=== PATIENT | female | born 1955 | race Caucasian/White ===

== ENCOUNTER 2020-01-07 14:16 | Emergency (ER) | payer OTHER, SELFPAY ==
[2020-01-07 14:28] VITALS: BP 142/77; PULSE 75; RESP 16; TEMP 37.1; O2SAT 100
--- NOTE | 2020-01-07 14:30 | PC.NURSE ---
in br to obtain ua spec.
--- NOTE | 2020-01-07 14:30 | ED.FEMALEGU ---
HPI - Female Genitourinary General Chief complaint: Urogenital-Female Stated complaint: uti Time Seen by Provider: 01/07/20 14:37 Source: patient and RN notes reviewed Mode of arrival: ambulatory Limitations: no limitations History of Present Illness HPI Narrative: This is a 64 years old female presents to the office for an evaluation of possible UTI since last night. Symptoms include urinary pain, pressure, and suprapubic pain. Symptoms reminiscent her previous UTI. Admits to history of recurrent UTI. States, her doctor told her to save macrobid as last resort for UTI if else fails. Related Data Home Medications Medication Instructions Recorded Confirmed amlodipine 08/14/19 aspirin 08/14/19 atorvastatin 08/14/19 carbidopa-levodopa tablet PO 08/14/19 clonazepam 08/14/19 diltiazem HCl PO 08/14/19 ezetimibe mg 08/14/19 lamotrigine 08/14/19 oxybutynin chloride 08/14/19 sitagliptin [Januvia] mg 08/14/19 albuterol sulfate INHALATION 01/07/20 clopidogrel 01/07/20 gabapentin 01/07/20 latanoprost 01/07/20 loratadine mg 01/07/20 metoprolol tartrate 01/07/20 pramipexole mg 01/07/20 trazodone 01/07/20 triamterene-hydrochlorothiazid tablet 01/07/20 Allergies Allergy/AdvReac Type Severity Reaction Status Date / Time ciprofloxacin Allergy Severe SEVERE Verified 09/05/18 08:35 MIGRAINES Penicillins Allergy Severe ANAPHYLAXIS Unverified 09/05/18 08:35 Quinolones Allergy Severe ANAPHYLAXIS Verified 09/05/18 08:35 Sulfa (Sulfonamide Allergy Severe HIVES Verified 09/05/18 08:35 Antibiotics) cephalexin [From Keflex] Allergy Anaphylaxis Verified 01/07/20 15:02 fentanyl Allergy Anaphylaxis Verified 08/14/19 14:13 levofloxacin [From Levaquin] Allergy Rash Verified 08/14/19 14:15 morphine AdvReac Mild RASH Verified 09/05/18 08:35 Review of Systems Review of Systems: Narrative: CONSTITUTIONAL: Denies fever or feeling ill ENT: Denies congestion CARDIOVASCULAR: Denies chest pain RESPIRATORY: Denies cough GASTROINTESTINAL: Denies abdominal pain, nausea, vomiting, diarrhea; or GI bleed GENITOURINARY: Denies vaginal discharge SKIN: Denies rash/lesions MUSCULOSKELETAL: Denies acute back pain NEUROLOGIC: Denies lightheaded PMFSH Past Medical History Medical History Diabetes Hyperlipidemia Hypertension Parkinsons disease Social History Social History Gender identity (if verbalized by the patient): Female Comments At time of signature, I agree with nursing past medical, surgical, social and family history. There is no relevant family history pertinent to the presenting complaint. Exam Narrative: Exam Narrative: GENERAL: This is a well-nourished, well-developed patient, in no apparent distress. CARDIOVASCULAR: Regular rate and rhythm without murmurs, gallops, or rubs. RESPIRATORY: Clear to auscultation. Breath sounds equal bilaterally. No wheezes, rales, or rhonchi. GASTROINTESTINAL: Abdomen soft, non-tender, nondistended. Bowel sounds are active. No hepato-splenomegaly, or palpable masses. No guarding. NO CVA tenderness. SKIN: warm, intact with no suspicious lesions or rash, good texture and turgor. NEURO: awake, alert, and oriented to person, place and time. There were no obvious focal neurologic abnormalities. Steady gait [place] Coma Scale Eye Opening: Spontaneous 4 [place] Coma Scale Motor: Obeys Commands 6 [place] Coma Scale Verbal: Oriented 5 Course Vital Signs Vital signs: Vital Signs Temperature 98.8 F 01/07/20 14:28 Pulse Rate 75 01/07/20 14:28 Respiratory Rate 16 01/07/20 14:28 Blood Pressure 142/77 H 01/07/20 14:28 Pulse Oximetry 100 01/07/20 14:28 Temperature 98.8 F 01/07/20 14:28 Pulse Rate 75 01/07/20 14:28 Respiratory Rate 16 01/07/20 14:28 Blood Pressure 142/77 H 01/07/20 14:28 Pulse Oximetry 100 01/07/20 14:28
== END 2020-01-07 14:58 | disposition home or self-care (01) ==
PROVIDERS: Emergency Provider Nurse Practitioner
DX: R30.0 Dysuria (principal); R10.30 Lower abdominal pain, unspecified; E11.9 Type 2 diabetes mellitus without complications; E78.5 Hyperlipidemia, unspecified; I10 Essential (primary) hypertension; G20 Parkinson's disease; Z79.82 Long term (current) use of aspirin; Z79.84 Long term (current) use of oral hypoglycemic drugs
CPT/HCPCS: 81003; 87086; 87088; 99213; G0463

== ENCOUNTER 2022-03-04 11:48 | Observation (INO) | payer MEDICARE, MEDICAID, SELFPAY ==
[2022-03-04] VITALS (7 sets, daily range): BP systolic 120–160; BP diastolic 66–83; PULSE 62–72; RESP 14–22; TEMP 36.1–36.6; O2SAT 96–100
--- NOTE | ~2022-03-04 | XR_ITS ---
EXAMINATION: XR chest 2V 03/04/2022 12:44 INDICATION: Chest pressure PROCEDURE: 2 view chest COMPARISON: 08/14/2019 FINDINGS: The lungs are clear. The cardiomediastinal silhouette is within normal limits. There are no pleural effusions. There is no pneumothorax suspected. IMPRESSION: 1: NO ACUTE CARDIOPULMONARY DISEASE. Reviewed, dictated and finalized at location A.
--- NOTE | 2022-03-04 12:05 | ECG_ITS ---
Measurements Intervals [place] Rate: 68 P: 63 WA: 181 QRS: 18 QRSD: 136 T: 47 QT: 455 QTc: 487 Interpretive Statements SINUS RHYTHM LEFT BUNDLE BRANCH BLOCK BASELINE ARTIFACT- II, III, AVR, AVL, AVF, V1, V3-V6 ABNORMAL ECG Electronically Signed On 03-04-2022 16:58:39 CDT by Gerald Francois D.O.
--- NOTE | 2022-03-04 12:18 | ED.CHESTPAIN ---
HPI - Chest Pain General Chief Complaint: Chest Pain Stated Complaint: chest pressure x 1 week, bp elevated Time Seen by Provider: 03/04/22 12:18 Source: patient and EMS Mode of arrival: EMS Limitations: no limitations History of Present Illness HPI narrative: 66 years old white female came from assisted living by ambulance because of chest pressure for the last 7 days. Patient feels cannot take deep breath. Pressure worse during daytime, at rest or with activity, dissipate at night and to start immediately after waking up from sleep, patient on sleeping pills. History of parkinsonism, asthma, diabetes, hypertension, hyperlipidemia, TIA, atrial fibrillation on Eliquis, kidney stone. Related Data Home Medications Medication Instructions Recorded Confirmed amlodipine 10 mg tablet 08/14/19 aspirin 81 mg chewable tablet 08/14/19 atorvastatin 80 mg tablet 08/14/19 carbidopa ER 50 mg-levodopa 200 mg tablet PO 08/14/19 tablet,extended release clonazepam 0.5 mg tablet 08/14/19 diltiazem HCl 120 mg capsule,24 PO 08/14/19 hr,extended release ezetimibe 10 mg tablet mg 08/14/19 lamotrigine 100 mg tablet 08/14/19 oxybutynin chloride 5 mg tablet 08/14/19 sitagliptin 50 mg tablet (Januvia) mg 08/14/19 albuterol sulfate 90 mcg/actuation inhalation 01/07/20 aerosol inhaler clopidogrel 75 mg tablet 01/07/20 gabapentin 300 mg capsule 01/07/20 latanoprost 0.005 % eye drops 01/07/20 loratadine 10 mg tablet mg 01/07/20 metoprolol tartrate 50 mg tablet 01/07/20 pramipexole 1 mg tablet mg 01/07/20 trazodone 100 mg tablet 01/07/20 triamterene 37.5 tablet 01/07/20 mg-hydrochlorothiazide 25 mg tablet Allergies Allergy/AdvReac Type Severity Reaction Status Date / Time ciprofloxacin Allergy Severe SEVERE Verified 03/04/22 11:54 MIGRAINES Penicillins Allergy Severe ANAPHYLAXIS Verified 03/04/22 11:54 Quinolones Allergy Severe ANAPHYLAXIS Verified 03/04/22 11:54 Sulfa (Sulfonamide Allergy Severe HIVES Verified 03/04/22 11:54 Antibiotics) cephalexin [From Keflex] Allergy Anaphylaxis Verified 03/04/22 11:54 fentanyl Allergy Anaphylaxis Verified 03/04/22 11:54 levofloxacin [From Levaquin] Allergy Rash Verified 03/04/22 11:54 morphine AdvReac Mild RASH Verified 03/04/22 11:54 Review of Systems Review of Systems: All systems reviewed & are unremarkable except as noted in HPI and below PMFSH Past Medical History Medical History (Updated 03/04/22 @ 12:56 by Ian Hdz MD) Diabetes Hyperlipidemia Hypertension Parkinsons disease Social History Social History Gender identity (if verbalized by the patient): Female Exam Narrative: General appearance: Well-developed, well-nourished Skin: Normal color Head: Normocephalic, nontraumatic Eyes: Clear conjunctiva ENT: Oropharynx normal, ears normal, nose normal Neck: Supple, nontender Chest and respiratory: Airway patent, no respiratory distress, no accessory muscle use Heart: Regular rate/rhythm Abdomen: Soft, nontender, no organomegaly, quiet bowel sounds Vascular: Normal peripheral pulses, normal capillary refill. 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
[2022-03-04 12:25] LABS: Basophils Absolute Auto 0.1 K/mm3 (0.0-0.1); Basophils Percent Auto 0.6 % (0.2-1.2); Eosinophils Absolute Auto 0.3 K/mm3 (0-0.3); Eosinophils Percent Auto 2.5 % (0-4.4); Hematocrit 37.5 % (37.0-47.0); Hemoglobin 12.4 g/dL (12.0-15.0); Immature Granulocyte Absolute 0.04 K/mm3 (0.00-0.031); Immature Granulocyte Percent A 0.4 % (0-0.5); Lymphocytes Absolute Auto 3.07 K/mm3 (0.9-3.2); Lymphocytes Percent Auto 30.6 % (18.3-44.2); Mean Corpuscular HGB Conc 33.1 g/dl (32-36); Mean Corpuscular Hemoglobin 29.9 pg (26-34); Mean Corpuscular Volume 90.4 fl (80-100); Mean Platelet Volume 9.2 fl (7.4-10.4); Monocytes Absolute Auto 0.8 K/mm3 (0.1-0.6); Monocytes Percent Auto 8.2 % (2.6-8.5); Neutrophils Absolute Auto 5.8 K/mm3 (1.3-6.7); Neutrophils Percent Auto 57.7 % (45.5-73.1); Platelet Count Result 216 k/mm3 (150-375); Red Blood Count 4.15 M/mm3 (4.2-5.4); Red Cell Distribution Width 14.6 % (11.5-14.5)
[2022-03-04 12:35] LABS: Alanine Aminotransferase 22 U/L (6-35); Albumin Level 4.3 g/dL (3.5-5.1); Alkaline Phosphatase 80 U/L (38-126); Anion Gap 8 mmol/L (8-16); Aspartate Amino Transferase 24 U/L (14-36); Bilirubin,Total 0.5 mg/dL (0.2-1.3); Blood Urea Nitrogen 17 mg/dL (7-17); Calcium 9.5 mg/dL (8.4-10.2); Carbon Dioxide 30 mmol/L (22-30); Chloride 101 mmol/L (98-107); Estimated CRCL calculation 44 ml/min; Estimated Glomerular Filt Rate 50; Glucose 122 mg/dL (65-110); Lipase 300 U/L (23-300); Potassium 3.6 mmol/L (3.4-5.0); Sodium 139 mmol/L (137-145)
[2022-03-04 12:36] LABS: INR 1.3; Prothrombin Time 15.3 Seconds (11.1-14.7)
[2022-03-04 12:37] LABS: Partial Thromboplastin Time 31.4 SECONDS (22.3-36.8)
[2022-03-04 12:47] LABS: NT Pro B Type Natriuretic Pept 101 pg/mL (5-100); Troponin I < 0.012 ng/mL (0.000-0.034)
[2022-03-04] MEDS: SODIUM CHLORIDE 0.9% IV 1,000 ML 999 ML IV CONT (13:16)
[2022-03-04 13:31] LABS: SARS-CoV-2 RNA PCR Negative
--- NOTE | 2022-03-04 14:07 | PM.IMHP ---
H&P: HPI History of Present Illness Date/Time: 03/04/22 [id number] Chief Complaint: Chest Pain Narrative: This pleasant, 66-year-old female patient significant past medical history of hypertension, hyperlipidemia, diabetes mellitus, Parkinson's disease presents independently ambulatory to the emergency room with complaints of having chest pain for 1 week. The chest pain is only present during the day, she does not feel it at night because she ?takes a sleeping pill. The pain she describes to me is in the middle of her chest without any radiation, made her feel like she has to force a deep inspiration, in she has no associated nausea/vomiting/diaphoresis/palpitations/radiation of pain. She does not have dyspnea on exertion. She has reportedly seen fishing game warden previously and that is Dr. Cordero at [facility] [place]. Patient denies any illnesses or any acute sick contacts. She has taken all her medications. EKG in the emergency room showed normal sinus rhythm at 60 beats per minute with a left bundle-branch block. Initial troponin is negative. Heart score is 5 for (risk factors, age, nonspecific repolarization disturbance in slight suspicion.) Patient has been admitted to hospitalist service at this time for complete rule out with serial troponins. Review of Systems Review of Systems: All systems reviewed & are unremarkable except as noted in HPI and below PMFSH Past Medical History Medical History (Updated 03/04/22 @ 14:18 by JOHN Tuttle) Diabetes Hyperlipidemia Hypertension Parkinsons disease Social History Social History Gender identity (if verbalized by the patient): Female Meds Home Medications and Allergies Home Medications Medication Instructions Recorded Confirmed Type amlodipine 10 mg tablet 08/14/19 History aspirin 81 mg chewable tablet 08/14/19 History atorvastatin 80 mg tablet 08/14/19 History carbidopa ER 50 mg-levodopa 200 mg tablet PO 08/14/19 History tablet,extended release clonazepam 0.5 mg tablet 08/14/19 History diltiazem HCl 120 mg capsule,24 PO 08/14/19 History hr,extended release ezetimibe 10 mg tablet mg 08/14/19 History lamotrigine 100 mg tablet 08/14/19 History oxybutynin chloride 5 mg tablet 08/14/19 History sitagliptin 50 mg tablet (Januvia) mg 08/14/19 History albuterol sulfate 90 mcg/actuation inhalation 01/07/20 History aerosol inhaler clopidogrel 75 mg tablet 01/07/20 History gabapentin 300 mg capsule 01/07/20 History latanoprost 0.005 % eye drops 01/07/20 History loratadine 10 mg tablet mg 01/07/20 History metoprolol tartrate 50 mg tablet 01/07/20 History nitrofurantoin 100 mg PO Q12H 7 days #14 caps 01/07/20 Rx monohydrate/macrocrystals 100 mg capsule (Macrobid) pramipexole 1 mg tablet mg 01/07/20 History trazodone 100 mg tablet 01/07/20 History triamterene 37.5 tablet 01/07/20 History mg-hydrochlorothiazide 25 mg tablet Allergies Allergy/AdvReac Type Severity Reaction Status Date / Time ciprofloxacin Allergy Severe SEVERE Verified 03/04/22 11:54 MIGRAINES Penicillins Allergy Severe ANAPHYLAXIS Verified 03/04/22 11:54 Quinolones Allergy Severe ANAPHYLAXIS Verified 03/04/22 11:54 Sulfa (Sulfonamide Allergy Severe HIVES Verified 03/04/22 11:54 Antibiotics) cephalexin [From Keflex] Allergy Anaphylaxis Verified 03/04/22 11:54 fentanyl Allergy Anaphylaxis Verified 03/04/22 11:54 levofloxacin [From Levaquin] Allergy Rash Verified 03/04/22 11:54 morphine AdvReac Mild RASH Verified 03/04/22 11:54 Vital Signs Vital Signs - 24 hr 03/04/22 11:45 Temperature 97.9 F Pulse Rate 69 Respiratory Rate 14 Blood Pressure 138/83 Pulse Oximetry 100 Oxygen Delivery Room Air Exam Const: General: comfortable and no acute distress HENMT: General nose exam: Normal nares present Mouth: Yes moist mucous membranes Eyes: General: appear
[2022-03-04] MEDS: SODIUM CHLORIDE 0.9% IV 1,000 ML 125 ML IV CONT (14:30)
[2022-03-04 15:00] LABS: Hemoglobin A1C 7.2 % (<5.7)
--- NOTE | 2022-03-04 15:12 | PC.NURSE ---
patient transferred to floor with IVF infusing
[2022-03-04 15:29] LABS: Troponin I < 0.012 ng/mL (0.000-0.034)
--- NOTE | 2022-03-04 15:54 | ADMGEN ---
This patient, Ivonne Santos, was admitted to IMU Room 206-01. Patient/family oriented to hospital policies and general routines including ID bracelet, bed and alarms, visiting hours, pain management, procedures, bathroom and other care routines, personal items, smoking policy, room service/diet, and visiting hours. Information on how to activate the Rapid Response Team has been discussed. Patient/Family are encouraged to report perceived risks to care and to ask questions if they do not understand what they are told or what they should do.
[2022-03-04 16:31] LABS: Glucose Point of Care 97 mg/dl (65-105)
[2022-03-04 16:41] LABS: Troponin I < 0.012 ng/mL (0.000-0.034)
[2022-03-04 19:02] LABS: Troponin I < 0.012 ng/mL (0.000-0.034)
[2022-03-04 20:34] LABS: Glucose Point of Care 139 mg/dl (65-105)
[2022-03-04] MEDS: clonazePAM (*CRX) 0.5 MG TABLET PO (21:38)
[2022-03-04] MEDS: QUEtiapine FUMARATE 25 MG TABLET PO (21:39)
[2022-03-04] MEDS: GABAPENTIN 300 MG CAPSULE 900 MG BY MOUTH (21:39)
[2022-03-04] MEDS: traZODone HCL 50 MG TABLET PO (21:39)
[2022-03-04] MEDS: LATANOPROST 0.005% OP SOLN 2.5 ML BTL 1 DROP EACH EYE (21:40)
[2022-03-05] VITALS (9 sets, daily range): BP systolic 130–152; BP diastolic 55–65; PULSE 62–74; RESP 16–18; TEMP 36.3–36.9; O2SAT 96–99
[2022-03-05] MEDS: SODIUM CHLORIDE 0.9% IV 1,000 ML 125 ML IV CONT (01:53)
[2022-03-05 05:07] LABS: Anion Gap 7 mmol/L (8-16); Blood Urea Nitrogen 11 mg/dL (7-17); Calcium 8.2 mg/dL (8.4-10.2); Carbon Dioxide 28 mmol/L (22-30); Chloride 108 mmol/L (98-107); Estimated CRCL calculation 53 ml/min; Estimated Glomerular Filt Rate > 60; Glucose 94 mg/dL (65-110); Potassium 3.4 mmol/L (3.4-5.0); Sodium 143 mmol/L (137-145)
[2022-03-05 07:23] LABS: Basophils Percent Auto 0.6 % (0.2-1.2); Eosinophils Absolute Auto 0.3 K/mm3 (0-0.3); Eosinophils Percent Auto 3.9 % (0-4.4); Hematocrit 37.6 % (37.0-47.0); Hemoglobin 12.1 g/dL (12.0-15.0); Immature Granulocyte Absolute 0.01 K/mm3 (0.00-0.031); Immature Granulocyte Percent A 0.2 % (0-0.5); Lymphocytes Absolute Auto 2.78 K/mm3 (0.9-3.2); Lymphocytes Percent Auto 42.1 % (18.3-44.2); Mean Corpuscular HGB Conc 32.2 g/dl (32-36); Mean Corpuscular Hemoglobin 29.6 pg (26-34); Mean Corpuscular Volume 91.9 fl (80-100); Monocytes Absolute Auto 0.5 K/mm3 (0.1-0.6); Monocytes Percent Auto 7.9 % (2.6-8.5); Neutrophils Percent Auto 45.3 % (45.5-73.1); Platelet Count Result 195 k/mm3 (150-375); Red Blood Count 4.09 M/mm3 (4.2-5.4); Red Cell Distribution Width 14.7 % (11.5-14.5); White Blood Count 6.6 K/mm3 (4.5-10.0)
[2022-03-05 08:09] LABS: Glucose Point of Care 94 mg/dl (65-105)
[2022-03-05] MEDS: TAMSULOSIN HCL 0.4 MG CAPSULE PO (08:44)
[2022-03-05] MEDS: FAMOTIDINE 20 MG TABLET 40 MG PO (08:44)
[2022-03-05] MEDS: TRIAMTERENE 50 MG CAPSULE PO (08:44)
[2022-03-05] MEDS: ASCORBIC ACID 500 MG TABLET PO (08:44)
[2022-03-05] MEDS: ATORVASTATIN 40 MG TABLET 80 MG PO (08:44)
[2022-03-05] MEDS: THERAPEUTIC MULTIVITAMINS/MINERALS TAB (*BKC) 1 TABLET PO (08:44)
[2022-03-05] MEDS: PANTOPRAZOLE 40 MG TABLET PO (08:44)
[2022-03-05] MEDS: APIXABAN 5 MG TABLET BY MOUTH (08:44)
[2022-03-05] MEDS: EZETIMIBE 10 MG TABLET PO (08:44)
[2022-03-05] MEDS: METOPROLOL TARTRATE 50 MG TAB 100 MG PO (08:44)
[2022-03-05] MEDS: LORATADINE 10 MG TABLET PO (08:44)
[2022-03-05] MEDS: ASPIRIN 81 MG CHEWABLE TABLET PO (08:44)
[2022-03-05] MEDS: lamoTRIgine 100 MG TABLET PO (08:44)
[2022-03-05] MEDS: FLUTICASONE PROPIONATE 0.05% NA SPR 16 GM BTL (*BKC) 2 SPRAY NASAL (08:45)
[2022-03-05] MEDS: MIRABEGRON 50 MG ER TABLET PO (08:45)
[2022-03-05] MEDS: FLUTICASONE/SALMETEROL 45-21 MCG INHALER 1 PUFF 2 PUFF INHALATION (09:04)
--- NOTE | 2022-03-05 09:34 | PM.DS ---
DS: Admitting Diagnosis Discharge Date 03/05/22 1600 Admitting Diagnosis chest pain DS: Discharge Diagnosis Discharge Diagnosis (1) Chest pain: Code(s): R07.9 - Chest pain, unspecified Status: Acute Assessment and Plan: -low suspicion for ACS.heart score 5. - EKG showed NSR, LBBB, serial troponin showed no change, <0.012, Tele did show transient 2d Degree AV block which resolved. -patient received aspirin in the ED. -patient's manager travel is Dr. Cordero at [facility] -nitro p.r.n., Tylenol - Inquired about patient's steroid inhaler use. She is taking budesonide inhaler at this time and does not rinse afterwards. She does confirm she frequently gets yeast in the corners of her mouth, last time approximately 1 month ago. History of EGD in December 2020, prior to these symptoms, which showed erosive gastropathy w/ stigmata of bleeding. She reports she has been having bad reflux for the past few days prior to the start of her chest pain. She reports current chest pain is worse after eating, but is not burning, more pressure. She states it is in the same place that she was having her GERD pain. She denies pain with inspiration, lower extremity pain or edema. Candidal esophagitis is in the differential at this time. - Advised patient to continue her Pepcid/ PPI and follow up with her primary care and GI physician, Dr. Quijano, for potential EGD to evaluate for possible esophagitis. At this time, the patient is hemodynamically stable, on room air, and is chest pain free. Discussed plan for discharge with follow up with the patient and she does agree with this course of action. (2) Hypertension: Code(s): I10 - Essential (primary) hypertension Status: Chronic Assessment and Plan: -Chronic in nature. -Resume home medications upon discharge. (3) Hyperlipidemia: Code(s): E78.5 - Hyperlipidemia, unspecified Status: Chronic Assessment and Plan: -resume statin therapy once medications have been verified by RN. -cardiac diet (4) Diabetes mellitus: Code(s): E11.9 - Type 2 diabetes mellitus without complications Status: Chronic Assessment and Plan: -A1c 7.2 -sliding-scale insulin -hypoglycemia protocol -heart healthy diet -Discharge with home medications continued. (5) Parkinsons disease: Code(s): G20 - Parkinson's disease Status: Chronic Assessment and Plan: Continue home medication upon discharge. DS: Summary Hospital Course Reason for hospitalization: Chest pain Hospital Course: See above for full hospital course. Status at Discharge Overall status at discharge: patient is progressing back to baseline Time Spent with Patient Time attestation: Total time spent providing and/or coordinating discharge services: 35 mins Time spent: Greater than 30 minutes Exam Narrative: GENERAL APPEARANCE: Alert and oriented x 3, in no apparent distress. HEENT: PERRL, EOMI. Sclerae anicteric. Moist mucous membranes. NECK: Supple. No JVD or obvious carotid bruits. RESPIRATORY: Respirations are nonlabored. Breath sounds are equal and clear bilaterally. No wheezes, Rhonchi, or rales. CARDIOVASCULAR: Regular rate and rhythm with normal S1-S2. No murmurs, gallops, or rubs. GASTROINTESTINAL: Soft, flat, and benign. No mass, tenderness, guarding, or rebound. No organomegaly or hernia. Bowel sounds are present. SKIN: Warm, dry, well perfused. Good turgor. No lesions, nodules, or rashes noted. EXTREMITIES: No cyanosis, clubbing, or edema. Radial and pedal pulses intact. NEUROLOGICAL: Alert. Cranial nerves 2-12 are grossly intact. No gross focal deficits to casual conversation. PSYCHIATRIC: Pleasant and cooperative with normal mood and affect. DS: Data Data Completed and Pending Labs on day of discharge: Labs from last 24 hours 03/05/22 03/05/22 03/05/22 07:59 04:09 04:04 WBC 6.6 R
[2022-03-05 11:42] LABS: Glucose Point of Care 235 mg/dl (65-105)
[2022-03-05] MEDS: INSULIN ASPART (*BKC) 100 UNITS/ML SUB-Q (11:57)
== END 2022-03-05 14:00 ==
LOC: ANHED 12:56 → ANHIMU 14:51
PROVIDERS: General Practice; Nurse Practitioner Adult Health; Admitting Provider Student in an Organized Health Care Education/Training Program; Emergency Provider Emergency Medicine; Visit Provider Student in an Organized Health Care Education/Training Program
DX: R07.9 Chest pain, unspecified (principal); E86.0 Dehydration; F32.A Depression, unspecified; G20 Parkinson's disease; I10 Essential (primary) hypertension; E78.5 Hyperlipidemia, unspecified; E11.9 Type 2 diabetes mellitus without complications; J45.909 Unspecified asthma, uncomplicated; I48.91 Unspecified atrial fibrillation; Z86.73 Personal history of transient ischemic attack (TIA), and cerebral infarction without residual deficits; Z79.01 Long term (current) use of anticoagulants; Z79.82 Long term (current) use of aspirin; Z79.84 Long term (current) use of oral hypoglycemic drugs; Z79.51 Long term (current) use of inhaled steroids; Z79.02 Long term (current) use of antithrombotics/antiplatelets; Z20.822 Contact with and (suspected) exposure to COVID-19
CPT/HCPCS: 36415; 71046; 80048; 80053; 82948; 83036; 83690; 83880; 84484; 85025; 85610; 85730; 93005; 94640; 96361; 96365; 96376; 99285; A9270; C9803; G0378; G0379; J0131; J1815; J7030; U0003; U0005

== ENCOUNTER 2023-02-17 14:25 | Emergency (ER) | payer MEDICARE, OTHER, SELFPAY ==
--- NOTE | ~2023-02-17 | XR_ITS ---
EXAM: XR tibia fibula RT 2V DATE: 02/17/2023 15:35 HISTORY: laceration, concern for foreign body . COMPARISON: None available. FINDINGS: Uncomplicated appearing right total knee arthroplasty. Decreased mineralization. No fractu re or dislocation. No lytic or blastic lesion. Joint spaces are maintained. No erosion or periosteal change. Scattered areas of subcutaneous gas. IMPRESSION: No acute osseous finding. No hardware complication. No radiopaque foreign body. Reviewed, dictated and finalized at location K. IMPRESSION: No acute osseous finding. No hardware complication. No radiopaque f oreign body.
--- NOTE | ~2023-02-17 | XR_ITS ---
EXAM: XR femur LT min 2V, XR tibia fibula LT 2V DATE: 02/17/2023 14:55 (accession [id number]), 02/17/2023 14:56 (accession [id number]) HISTORY: laceration, concern for foreign body PROXIMAL ANT LACERATION . COMPARISON: None available. FINDINGS: Decreased mineralization. No fracture or dislocation. No lytic or blastic lesion. Joint sp aces and physes are mild degenerative change at the left hip, left knee, and left ankle. No erosion o r periosteal change. Subcutaneous gas over the proximal thigh. No radiopaque foreign body. IMPRESSION: No acute osseous finding in the left femur, tibia, or fibula. No radiopaque foreign body. Reviewed, dictated and finalized at [facility]. IMPRESSION: No acute osseous finding in the left femur, tibia, or fibula. No ra diopaque foreign body.
--- NOTE | ~2023-02-17 | CT_ITS ---
CTA OF THE LEFT LOWER EXTREMITY EXAMINATION: CTA LE LT DATE: 02/17/2023 17:31 INDICATION: Penetrating trauma after falling on a tomato cage, brisk spurting blood reported at the t rebecca of injury, bleeding currently controlled superficially, with suspicion for an expanding hematoma in the groin/thigh. TECHNIQUE: Computed tomography (CT) of the left lower extremity was performed with 150 mL Omnipaque 3 50 intravenous contrast in the arterial phase. Automated exposure control and iterative reconstructio n technique were employed. The dose-length product was 697.21 mGy-cm. COMPARISON: X-ray left femur, same date FINDINGS: Soft tissue defect over the anterior thigh with underlying subcutaneous fat stranding. 11.8 x 10.3 x 17.8 cm intramuscular hematoma primarily involving the medial and proximal thigh musculatur e, with some subcutaneous extension. Extensive subcutaneous gas. Multiple focal contrast blushes are present within the hematoma. The traversing common femoral, profundus, and superficial femoral arteri es are patent and normal in appearance. The common femoral vein is flattened and irregular in appeara nce in the region of soft tissue injury. No significant arterial stenosis or occlusion. Distal flow i s preserved. 2 vessel flow below the level of the ankle. No acute osseous finding. Mild degenerative change in the left hip and left knee. Distended urinary b ladder. Surgically absent uterus. IMPRESSION: Anterior thigh laceration with a large underlying proximal and medial thigh hematoma, mostly intramus cular, measuring up to 17.8 cm. Active foci of arterial hemorrhage within the hematoma, likely from b ranch intramuscular arteries. Injury to the common femoral vein is also suspected. Results reported telephonically to Ingrid Gonzalez PA-C by Dr. Sam at 5:42 PM on 02/17/2023. Reviewed, dictated and finalized at location [facility]. IMPRESSION: Anterior thigh laceration with a large underlying proximal and medial thigh hem atoma, mostly intramuscular, measuring up to 17.8 cm. Active foci of arterial h emorrhage within the hematoma, likely from branch intramuscular arteries. Injur y to the common femoral vein is also suspected. Results reported telephonically to Ingrid Gonzalez PA-C by Dr. Sam at 5:42 PM on 02/17/2023.
[2023-02-17 14:28] VITALS: BP 141/70; PULSE 83; RESP 16; TEMP 36.7; O2SAT 99
--- NOTE | 2023-02-17 14:36 | ED.WOUNDLAC ---
HPI - Wound/Laceration General Chief Complaint: Wound/Laceration <Liz Gonzalez PA-C - Last Filed: 02/17/23 18:45> Stated Complaint: lac to thigh <Liz Gonzalez PA-C - Last Filed: 02/17/23 18:45> Time Seen by Provider: 02/17/23 14:27 <Liz Gonzalez PA-C - Last Filed: 02/17/23 18:45> History of Present Illness HPI narrative: 67-year-old female reports from [facility] via [facility] for laceration to her left proximal thigh. Patient reports she was outside gardening, tripped over a tomato cage and cut her leg on a sharp piece of the tomato cage. States she had to pull the tomato cage out of her L thigh, then began squirting blood ~4 min. By the time EMS got there, EMS reported the bleeding was controlled. She also has a laceration to her right distal leg and right lateral leg. Patient thinks she had a tetanus 2 years ago, however upon questioning she is not for certain. She denies other pain or injury, chest pain or shortness of breath, vision changes, focal numbness or weakness. <Liz Gonzalez PA-C - Last Filed: 02/17/23 18:45> Related Data Home Medications: Home Medications Medication Instructions Recorded Confirmed atorvastatin 80 mg tablet 80 mg PO DAILY 08/14/19 03/04/22 clonazepam 0.5 mg tablet 0.5 mg PO HS 08/14/19 03/04/22 ezetimibe 10 mg tablet 10 mg PO DAILY 08/14/19 03/04/22 lamotrigine 100 mg tablet 100 mg PO BID 08/14/19 03/04/22 sitagliptin phosphate 50 mg tablet 50 mg PO DAILY 08/14/19 03/04/22 (Januvia) latanoprost 0.005 % eye drops 1 drp EACH EYE HS 01/07/20 03/04/22 trazodone 100 mg tablet 50 mg PO HS 01/07/20 03/04/22 acetaminophen 325 mg tablet 650 mg PO QID PRN Pain 03/04/22 03/04/22 apixaban 5 mg tablet (Eliquis) 5 mg BID 03/04/22 03/04/22 ascorbic acid (vitamin C) 500 mg 500 mg PO DAILY 03/04/22 03/04/22 tablet calcium carbonate 600 mg-vitamin 1 tablet PO WEEKLY 03/04/22 03/04/22 D3 10 mcg (400 unit) tablet cetirizine 10 mg tablet 10 mg DAILY 03/04/22 03/04/22 diclofenac sodium 1 % topical gel 1 ea topical QID 03/04/22 03/04/22 famotidine 40 mg tablet 40 mg PO DAILY 03/04/22 03/04/22 fluticasone 100 mcg-salmeterol 50 1 inh inhalation Q12H 03/04/22 03/04/22 mcg/dose blistr powdr for inhalation (Advair Diskus) fluticasone propionate 50 2 spray intranasal DAILY 03/04/22 03/04/22 mcg/actuation nasal spray,suspension metoprolol tartrate 100 mg tablet 100 mg PO BID 03/04/22 03/04/22 mirabegron 50 mg tablet,extended 50 mg PO DAILY 03/04/22 03/04/22 release 24 hr (Myrbetriq) multivitamin with minerals 1 tablet PO DAILY 03/04/22 03/04/22 pantoprazole 40 mg tablet,delayed 40 mg PO DAILY 03/04/22 03/04/22 release pimavanserin 34 mg capsule 34 mg PO DAILY 03/04/22 03/04/22 quetiapine 25 mg tablet 25 mg PO HS 03/04/22 03/04/22 tamsulosin 0.4 mg capsule 0.4 mg PO DAILY 03/04/22 03/04/22 triamterene 50 mg capsule 50 mg PO BID 03/04/22 03/04/22 <Liz Gonzalez PA-C - Last Filed: 02/17/23 18:45> Allergies/Adverse Reactions: Allergies Allergy/AdvReac Type Severity Reaction Status Date / Time ciprofloxacin Allergy Severe SEVERE Verified 02/17/23 14:44 MIGRAINES Penicillins Allergy Severe ANAPHYLAXIS Verified 02/17/23 14:44 Quinolones Allergy Severe ANAPHYLAXIS Verified 02/17/23 14:44 Sulfa (Sulfonamide Allergy Severe HIVES Verified 02/17/23 14:44 Antibiotics) adhesive tape Allergy Rash Verified 02/17/23 14:44 cephalexin [From Keflex] Allergy Anaphylaxis Verified 02/17/23 14:44 chlorthalidone Allergy Rash Verified 02/17/23 14:44 fentanyl Allergy Anaphylaxis Verified 02/17/23 14:44 ibuprofen Allergy Rash Verified 02/17/23 14:44 levofloxacin [From Levaquin] Allergy Rash Verified 02/17/23 14:44 vancomycin Allergy Gastrointestinal Verified 02/17/23 14:44 Upset morphine AdvReac Mild RASH Verified 02/17/23 14:44 <Liz Gonzalez PA-C - Last Filed: 02/17/23 18:45> Review of Systems Review of Systems: CONSTIT
[2023-02-17] MEDS: ACETAMINOPHEN 500 MG TABLET 1000 MG PO (14:43)
[2023-02-17] MEDS: TETANUS,DIPHTHERIA,AC PERTUSSIS ADULT (0.5 ML) BOOSTRIX IM (14:59)
[2023-02-17 16:15] VITALS: BP 143/85; PULSE 79; RESP 16; O2SAT 98
--- NOTE | 2023-02-17 16:18 | PC.NURSE ---
area proximal to left leg laceration becoming swollen and tender to touch. increased bruising noted around injury. pa aware
[2023-02-17] MEDS: HYDROmorphone HCL INJ (*CRX) 1 MG/ML SYR 0.5 MG IV PUSH ×2 (16:21→18:12)
[2023-02-17 16:25] LABS: Basophils Absolute Auto 0.1 K/mm3 (0.0-0.1); Basophils Percent Auto 0.5 % (0.2-1.2); Eosinophils Absolute Auto 0.2 K/mm3 (0-0.3); Hematocrit 32.7 % (37.0-47.0); Hemoglobin 10.7 g/dL (12.0-15.0); Immature Granulocyte Absolute 0.07 K/mm3 (0.00-0.031); Immature Granulocyte Percent A 0.6 % (0-0.5); Lymphocytes Absolute Auto 2.21 K/mm3 (0.9-3.2); Lymphocytes Percent Auto 19.9 % (18.3-44.2); Mean Corpuscular HGB Conc 32.7 g/dl (32-36); Mean Corpuscular Hemoglobin 29.7 pg (26-34); Mean Corpuscular Volume 90.8 fl (80-100); Mean Platelet Volume 9.9 fl (7.4-10.4); Monocytes Absolute Auto 0.7 K/mm3 (0.1-0.6); Monocytes Percent Auto 5.9 % (2.6-8.5); Neutrophils Absolute Auto 7.9 K/mm3 (1.3-6.7); Neutrophils Percent Auto 71.1 % (45.5-73.1); Platelet Count Result 216 k/mm3 (150-375); Red Cell Distribution Width 14.6 % (11.5-14.5); White Blood Count 11.1 K/mm3 (4.5-10.0)
--- NOTE | 2023-02-17 16:33 | PC.NURSE ---
measured upper thighs, due to swelling in left upper thigh Right upper thigh: 23.25 Left upper thigh: 24.50 ed pa aware
[2023-02-17 16:35] LABS: Anion Gap 8 mmol/L (8-16); Blood Urea Nitrogen 21 mg/dL (7-17); Calcium 9.1 mg/dL (8.4-10.2); Carbon Dioxide 27 mmol/L (22-30); Chloride 102 mmol/L (98-107); Estimated CRCL calculation 37 ml/min; Estimated Glomerular Filt Rate 45; Glucose 123 mg/dL (65-110); Potassium 3.5 mmol/L (3.4-5.0); Sodium 137 mmol/L (137-145)
[2023-02-17 16:40] LABS: Prothrombin Time 13.9 Seconds (11.1-14.7)
[2023-02-17 17:05] VITALS: BP 139/68; PULSE 83; RESP 16; O2SAT 97
[2023-02-17] MEDS: ONDANSETRON INJ 4 MG/2 ML VIAL IV PUSH ×2 (17:18→18:50)
--- NOTE | 2023-02-17 18:00 | PC.NURSE ---
measured left proximal thigh: 25.0
[2023-02-17] MEDS: SODIUM CHLORIDE 0.9% IV 1,000 ML 999 ML IV CONT (18:12)
[2023-02-17 18:44] VITALS: BP 132/71; PULSE 83; RESP 16; O2SAT 98
--- NOTE | 2023-02-17 18:44 | PC.NURSE ---
We called [facility] first 1816, due to 45 min. wait time for lights and sirens, decision was to fly pt Air-Vac to [facility], 182 Air Vac here 183. Cancelled [facility] at 182.
== END 2023-02-17 18:52 | disposition short-term general hospital (02) ==
PROVIDERS: Emergency Provider Physician Assistant
DX: S71.112A Laceration without foreign body, left thigh, initial encounter (principal); S75.992A Other specified injury of unspecified blood vessel at hip and thigh level, left leg, initial encounter; S75.10 Unspecified injury of femoral vein at hip and thigh level; Z23 Encounter for immunization; G20 Parkinson's disease; E11.9 Type 2 diabetes mellitus without complications; E78.5 Hyperlipidemia, unspecified; I10 Essential (primary) hypertension; Z87.891 Personal history of nicotine dependence; Z79.84 Long term (current) use of oral hypoglycemic drugs; Z79.01 Long term (current) use of anticoagulants; W26.8XXA Contact with other sharp object(s), not elsewhere classified, initial encounter; W18.09XA Striking against other object with subsequent fall, initial encounter
CPT/HCPCS: 36415; 73552; 73590; 73706; 80048; 85025; 85610; 85730; 90471; 90715; 96361; 96374; 96375; 96376; 99285; A9270; J1170; J2405; J7030; Q9967

== ENCOUNTER 2023-05-11 16:22 | Emergency (ER) | payer MEDICARE, MEDICAID, SELFPAY ==
[2023-05-11 16:38] VITALS: BP 177/86; PULSE 96; RESP 18; TEMP 36.9; O2SAT 99
--- NOTE | 2023-05-11 16:39 | ED.GENADULT ---
HPI - General Adult General Chief complaint: Urogenital-Female Stated complaint: uti symptoms Time Seen by Provider: 05/11/23 16:39 Source: patient, RN notes reviewed and old records reviewed Mode of arrival: ambulatory Limitations: no limitations History of Present Illness HPI narrative: 67-year-old female presents to the [facility] with complaints of frequency, urgency, burning with urination as well as loss of control of urination. Has a history of UTIs. Multiple drug allergies. States that she has been on doxycycline and Macrobid for the last 3 weeks, per medical record since the 02 of April. Patient reports she is no longer getting better. States that she tried calling her urologist and was told that what grew out is resistant to Macrobid. States that her urologist is no longer in clinic. Onset (ago): week(s) (3+) Related Data Home Medications Medication Instructions Recorded Confirmed atorvastatin 80 mg tablet 80 mg PO DAILY 08/14/19 05/11/23 clonazepam 0.5 mg tablet 0.5 mg PO HS 08/14/19 03/04/22 ezetimibe 10 mg tablet 10 mg PO DAILY 08/14/19 03/04/22 lamotrigine 100 mg tablet 100 mg PO BID 08/14/19 03/04/22 sitagliptin phosphate 50 mg tablet 50 mg PO DAILY 08/14/19 03/04/22 (Januvia) latanoprost 0.005 % eye drops 1 drp EACH EYE HS 01/07/20 03/04/22 trazodone 100 mg tablet 50 mg PO HS 01/07/20 03/04/22 acetaminophen 325 mg tablet 650 mg PO QID PRN Pain 03/04/22 05/11/23 apixaban 5 mg tablet (Eliquis) 5 mg BID 03/04/22 03/04/22 ascorbic acid (vitamin C) 500 mg 500 mg PO DAILY 03/04/22 03/04/22 tablet calcium carbonate 600 mg-vitamin 1 tablet PO WEEKLY 03/04/22 03/04/22 D3 10 mcg (400 unit) tablet cetirizine 10 mg tablet 10 mg DAILY 03/04/22 03/04/22 diclofenac sodium 1 % topical gel 1 ea topical QID 03/04/22 03/04/22 famotidine 40 mg tablet 40 mg PO DAILY 03/04/22 03/04/22 fluticasone 100 mcg-salmeterol 50 1 inh inhalation Q12H 03/04/22 03/04/22 mcg/dose blistr powdr for inhalation (Advair Diskus) fluticasone propionate 50 2 spray intranasal DAILY 03/04/22 03/04/22 mcg/actuation nasal spray,suspension metoprolol tartrate 100 mg tablet 100 mg PO BID 03/04/22 03/04/22 mirabegron 50 mg tablet,extended 50 mg PO DAILY 03/04/22 03/04/22 release 24 hr (Myrbetriq) multivitamin with minerals 1 tablet PO DAILY 03/04/22 03/04/22 pantoprazole 40 mg tablet,delayed 40 mg PO DAILY 03/04/22 03/04/22 release pimavanserin 34 mg capsule 34 mg PO DAILY 03/04/22 03/04/22 quetiapine 25 mg tablet 25 mg PO HS 03/04/22 03/04/22 tamsulosin 0.4 mg capsule 0.4 mg PO DAILY 03/04/22 03/04/22 triamterene 50 mg capsule 50 mg PO BID 03/04/22 03/04/22 aspirin 81 mg chewable tablet 81 mg DIRECTED 05/11/23 05/11/23 Allergies Allergy/AdvReac Type Severity Reaction Status Date / Time ciprofloxacin Allergy Severe SEVERE Verified 02/17/23 14:44 MIGRAINES Penicillins Allergy Severe ANAPHYLAXIS Verified 02/17/23 14:44 Quinolones Allergy Severe ANAPHYLAXIS Verified 02/17/23 14:44 Sulfa (Sulfonamide Allergy Severe HIVES Verified 02/17/23 14:44 Antibiotics) adhesive tape Allergy Rash Verified 02/17/23 14:44 cephalexin [From Keflex] Allergy Anaphylaxis Verified 02/17/23 14:44 chlorthalidone Allergy Rash Verified 02/17/23 14:44 fentanyl Allergy Anaphylaxis Verified 02/17/23 14:44 ibuprofen Allergy Rash Verified 02/17/23 14:44 levofloxacin [From Levaquin] Allergy Rash Verified 02/17/23 14:44 vancomycin Allergy Gastrointestinal Verified 02/17/23 14:44 Upset morphine AdvReac Mild RASH Verified 02/17/23 14:44 Review of Systems Review of Systems: All systems reviewed & are unremarkable except as noted in HPI and below Constitutional: Constitutional: Reports no additional constitutional complaints Eyes: Eyes: Reports no additional eye complaints ENT: Reports system reviewed and no additional complaints, except as documented Cardiovascular: Cardiovascular: Reports no additional cardiovascular complaints, Den
[2023-05-11 16:44] VITALS: BP 177/86; PULSE 96; RESP 18; TEMP 36.9; O2SAT 99
== END 2023-05-11 17:00 | disposition short-term general hospital (02) ==
PROVIDERS: Emergency Provider Nurse Practitioner
DX: N39.0 Urinary tract infection, site not specified (principal); E11.9 Type 2 diabetes mellitus without complications; E78.5 Hyperlipidemia, unspecified; I10 Essential (primary) hypertension; G20 Parkinson's disease; Z87.891 Personal history of nicotine dependence
CPT/HCPCS: 81003; 99212; G0463

== ENCOUNTER 2023-05-11 17:18 | Emergency (ER) | payer MEDICARE, MEDICAID, SELFPAY ==
[2023-05-11 17:21] VITALS: BP 181/83; PULSE 93; RESP 17; TEMP 36.4; O2SAT 100
[2023-05-11 17:56] LABS: Appearance Urine Turbid (Clear); Bacteria Urine Rare /hpf; Bilirubin Urine Negative (Negative); Blood Urine 2+ (Negative); Color Urine Yellow (Yellow); Glucose Urine UA Negative (Negative); Ketones Urine Trace mg/dL (Negative); Leukocyte Esterase Ur 3+ LEU/UL (Negative); Need Manual Microscopic Reviewed; Nitrate Urine Negative (Negative); Non Pathogenic Casts 0-2; Protein Urine 2+ mg/dL (Negative); RBC Urine 21-50 /hpf (0-2); Specific Grav Ur 1.023 (1.001-1.035); Squamous Epithelial Cell Urine Few /hpf (Few); Urobilinogen Urine 0.2 mg/dL (<2.0); WBC Urine >100 /hpf; pH Urine 5.5 (5.0-9.0)
[2023-05-11 17:58] LABS: Add Urine Microscopic? YES
--- NOTE | 2023-05-11 20:13 | PC.NURSE ---
Pt states she was sent by . Recently, treated for UTI medication resistant to med. Pt states I have history of UTI Pt Urologist recently left the area.
--- NOTE | 2023-05-11 20:42 | ED.FEMALEGU ---
HPI - Female Genitourinary General Chief complaint: Urogenital-Female Stated complaint: uti resistant to abx Time Seen by Provider: 05/11/23 19:49 History of Present Illness HPI Narrative: This is a 67-year-old female, with history of multiple urinary tract infections resistant to several medications, presents emergency department complaining of burning with urination for the past 2 weeks. The patient states she was diagnosed with a UTI 2 weeks ago at [facility]. At the time she was started Macrobid. That failed, she was seen by her primary care doctor placed her on doxycycline which also has failed. The patient states she has multiple drug allergies. She denies back pain, abdominal pain, nausea, vomiting or fevers Related Data Home Medications Medication Instructions Recorded Confirmed atorvastatin 80 mg tablet 80 mg PO DAILY 08/14/19 05/11/23 clonazepam 0.5 mg tablet 0.5 mg PO HS 08/14/19 03/04/22 ezetimibe 10 mg tablet 10 mg PO DAILY 08/14/19 03/04/22 lamotrigine 100 mg tablet 100 mg PO BID 08/14/19 03/04/22 sitagliptin phosphate 50 mg tablet 50 mg PO DAILY 08/14/19 03/04/22 (Januvia) latanoprost 0.005 % eye drops 1 drp EACH EYE HS 01/07/20 03/04/22 trazodone 100 mg tablet 50 mg PO HS 01/07/20 03/04/22 acetaminophen 325 mg tablet 650 mg PO QID PRN Pain 03/04/22 05/11/23 apixaban 5 mg tablet (Eliquis) 5 mg BID 03/04/22 03/04/22 ascorbic acid (vitamin C) 500 mg 500 mg PO DAILY 03/04/22 03/04/22 tablet calcium carbonate 600 mg-vitamin 1 tablet PO WEEKLY 03/04/22 03/04/22 D3 10 mcg (400 unit) tablet cetirizine 10 mg tablet 10 mg DAILY 03/04/22 03/04/22 diclofenac sodium 1 % topical gel 1 ea topical QID 03/04/22 03/04/22 famotidine 40 mg tablet 40 mg PO DAILY 03/04/22 03/04/22 fluticasone 100 mcg-salmeterol 50 1 inh inhalation Q12H 03/04/22 03/04/22 mcg/dose blistr powdr for inhalation (Advair Diskus) fluticasone propionate 50 2 spray intranasal DAILY 03/04/22 03/04/22 mcg/actuation nasal spray,suspension metoprolol tartrate 100 mg tablet 100 mg PO BID 03/04/22 03/04/22 mirabegron 50 mg tablet,extended 50 mg PO DAILY 03/04/22 03/04/22 release 24 hr (Myrbetriq) multivitamin with minerals 1 tablet PO DAILY 03/04/22 03/04/22 pantoprazole 40 mg tablet,delayed 40 mg PO DAILY 03/04/22 03/04/22 release pimavanserin 34 mg capsule 34 mg PO DAILY 03/04/22 03/04/22 quetiapine 25 mg tablet 25 mg PO HS 03/04/22 03/04/22 tamsulosin 0.4 mg capsule 0.4 mg PO DAILY 03/04/22 03/04/22 triamterene 50 mg capsule 50 mg PO BID 03/04/22 03/04/22 aspirin 81 mg chewable tablet 81 mg DIRECTED 05/11/23 05/11/23 Allergies Allergy/AdvReac Type Severity Reaction Status Date / Time ciprofloxacin Allergy Severe SEVERE Verified 02/17/23 14:44 MIGRAINES Penicillins Allergy Severe ANAPHYLAXIS Verified 02/17/23 14:44 Quinolones Allergy Severe ANAPHYLAXIS Verified 02/17/23 14:44 Sulfa (Sulfonamide Allergy Severe HIVES Verified 02/17/23 14:44 Antibiotics) adhesive tape Allergy Rash Verified 02/17/23 14:44 cephalexin [From Keflex] Allergy Anaphylaxis Verified 02/17/23 14:44 chlorthalidone Allergy Rash Verified 02/17/23 14:44 fentanyl Allergy Anaphylaxis Verified 02/17/23 14:44 ibuprofen Allergy Rash Verified 02/17/23 14:44 levofloxacin [From Levaquin] Allergy Rash Verified 02/17/23 14:44 vancomycin Allergy Gastrointestinal Verified 02/17/23 14:44 Upset morphine AdvReac Mild RASH Verified 02/17/23 14:44 Review of Systems Review of Systems: CONSTITUTIONAL: Denies fever, chills, or sweats. CARDIOVASCULAR: Denies chest pain, palpitations, or edema. RESPIRATORY: Denies cough or dyspnea. GASTROINTESTINAL: Denies abdominal pain, nausea, vomiting, or diarrhea. GENITOURINARY: Dysuria denies hematuria. SKIN: Denies rash or itching. MUSCULOSKELETAL: Denies back pain, joint pain, or myalgia. NEUROLOGIC: Denies headache, numbness, dizziness, or weakness. PSYCHIATRIC: Denies anxiety or depression. [facility]
== END 2023-05-11 21:39 | disposition home or self-care (01) ==
PROVIDERS: Emergency Medicine; Emergency Provider Preventive Medicine Aerospace Medicine
DX: N39.0 Urinary tract infection, site not specified (principal); E11.9 Type 2 diabetes mellitus without complications; E78.5 Hyperlipidemia, unspecified; I10 Essential (primary) hypertension; G20 Parkinson's disease; Z87.891 Personal history of nicotine dependence; Z79.82 Long term (current) use of aspirin; Z79.01 Long term (current) use of anticoagulants; Z79.84 Long term (current) use of oral hypoglycemic drugs
CPT/HCPCS: 81001; 81003; 87086; 87147; 87181; 87186; 99283

== ENCOUNTER 2023-09-01 09:03 | Emergency (ER) | payer MEDICARE, MEDICAID, SELFPAY ==
--- NOTE | ~2023-09-01 | CT_ITS ---
EXAMINATION: CT diagnostic chest wo con DATE: 09/01/2023 09:55 INDICATION: Ground-level fall yesterday. Right-sided rib pain TECHNIQUE: Computed tomography (CT) of the chest was performed without intravenous contrast. Automate d exposure control and iterative reconstruction technique were employed. Exam dose: 390.10 mGy-cm to lenora exam DLP. COMPARISON: None FINDINGS: Normal heart size. There is thoracic aortic calcification but no aneurysm. There is prominent calcifi cation at the origins of the celiac trunk and superior mesenteric and renal arteries. No hilar or mediastinal mass lesion or lymphadenopathy. Minimal bilateral lower lobe dependent atelectasis. The lungs are clear of infiltrate or consolidatio n. Normal morphology of the adrenal glands. Probable prominent left renal parapelvic cysts. There is a small nonobstructing calculus of each kidn ey. Status post cholecystectomy. Diverticulosis of the colon. Status post anterior cervical spine surgical fusion. Mild chronic anterior wedge compression fracture deformity of T12. No rib fracture is detected. IMPRESSION: No rib fracture is detected Reviewed, dictated and finalized at [facility]. Reviewed, dictated and finalized at location A. ISTRY TECHNOLOGIST IMPRESSION: No rib fracture is detected
--- NOTE | ~2023-09-01 | CT_ITS ---
EXAMINATION: CT cervical spine wo con DATE: 09/01/2023 09:54 INDICATION: Ground-level fall yesterday. TECHNIQUE: Computed tomography (CT) of the cervical spine was performed without intravenous contrast. Automated exposure control and iterative reconstruction technique were employed. Exam dose: 377.19 mGy-cm total exam DLP. COMPARISON: None FINDINGS: C1 and C2 are normally aligned and the odontoid process is intact. Status post surgical anterior and interbody fusion at C3-4. Fusion of the posterior elements at C3-4 bilaterally. Anterior plate and screws providing anterior surgical fusion at C5-C7, but the anterior plate is frac tured just above the middle screws. There is also fracture of the upper right through screw. No cervical spine fracture, dislocation or locked facet. C1 and C2 are normally aligned and the odont oid process is intact. No prevertebral soft tissue swelling.. IMPRESSION: Postoperative changes; fracture anterior plate at C6 level and fracture of the upper rig ht C5 through screw No cervical spine fracture or dislocation Reviewed, dictated and finalized at [facility]. Reviewed, dictated and finalized at location [facility]. S CONTRACT ADMINISTRATOR IMPRESSION: Postoperative changes; fracture anterior plate at C6 level and fra cture of the upper right C5 through screw No cervical spine fracture or dislocation
--- NOTE | ~2023-09-01 | CT_ITS ---
EXAMINATION: CT brain wo con DATE: 09/01/2023 09:54 INDICATION: Ground-level fall yesterday. TECHNIQUE: Computed tomography (CT) of the head was performed without intravenous contrast. The mA wa s adjusted according to patient size. Iterative reconstruction technique was employed. Exam dose: 83 2.33 mGy-cm total exam DLP. COMPARISON: None FINDINGS: Bilateral carotid siphon internal carotid artery calcifications. There is nonspecific dimin ished attenuation cerebral white matter, likely due to chronic small vessel ischemic changes. No intracranial mass lesion or hemorrhage or cerebrovascular accident, midline shift or mass effect i s noted. No subdural or epidural hematoma. The mastoid air cells and included paranasal sinuses are unremarkable. No fracture or bone destruction of the cranial vault. IMPRESSION: No skull fracture or acute intracranial finding Cerebral atherosclerosis and chronic small vessel ischemic changes of the cerebral white matter Reviewed, dictated and finalized at [facility]. Reviewed, dictated and finalized at location A. RIDER IMPRESSION: No skull fracture or acute intracranial finding Cerebral atherosclerosis and chronic small vessel ischemic changes of the cereb ral white matter
[2023-09-01 08:58] VITALS: BP 150/62; PULSE 100; RESP 20; TEMP 36.5; O2SAT 100
--- NOTE | 2023-09-01 09:27 | ED.GENADULT ---
HPI - General Adult General Chief complaint: Fall <Patricio Crum PA-C - Last Filed: 09/01/23 18:11> Stated complaint: fall-rib pain <Patricio Crum PA-C - Last Filed: 09/01/23 18:11> Time Seen by Provider: 09/01/23 09:09 <Patricio Crum PA-C - Last Filed: 09/01/23 18:11> Source: patient <MOSES Jacob Last Filed: 09/01/23 18:11> Mode of arrival: EMS <MOSES Jacob Last Filed: 09/01/23 18:11> Limitations: no limitations <Patricio Crum PA-C - Last Filed: 09/01/23 18:11> History of Present Illness HPI narrative: This is a 68-year-old female With PMH of DM, Parkinson's, COPD, HTN, TIA who presents to the ED via EMS from assisted living with chief complaint of a ground level fall that occurred overnight. patient states that she thinks she hit her right ribs on the toilet. Patient is unsure of what caused the fall. She remembers sitting on the toilet but does not remember much else Directly surrounding the event of a fall. She reports pain with deep breathing but does not feel short of breath. There was no preceding chest pain. Denies any current lightheadedness or vertigo. patient reports she was taken off of blood thinners several months ago. Additionally reports that she has had chronic swelling of the left leg ever since having a traumatic femoral arterial hematoma seven months ago. <Patricio Crum PA-C - Last Filed: 09/01/23 18:11> Related Data Home medications: Home Medications Medication Instructions Recorded Confirmed atorvastatin 80 mg tablet 80 mg PO DAILY 08/14/19 05/11/23 clonazepam 0.5 mg tablet 0.5 mg PO HS 08/14/19 03/04/22 ezetimibe 10 mg tablet 10 mg PO DAILY 08/14/19 03/04/22 lamotrigine 100 mg tablet 100 mg PO BID 08/14/19 03/04/22 sitagliptin phosphate 50 mg tablet 50 mg PO DAILY 08/14/19 03/04/22 (Januvia) latanoprost 0.005 % eye drops 1 drp EACH EYE HS 01/07/20 03/04/22 trazodone 100 mg tablet 50 mg PO HS 01/07/20 03/04/22 acetaminophen 325 mg tablet 650 mg PO QID PRN Pain 03/04/22 05/11/23 apixaban 5 mg tablet (Eliquis) 5 mg BID 03/04/22 03/04/22 ascorbic acid (vitamin C) 500 mg 500 mg PO DAILY 03/04/22 03/04/22 tablet calcium carbonate 600 mg-vitamin 1 tablet PO WEEKLY 03/04/22 03/04/22 D3 10 mcg (400 unit) tablet cetirizine 10 mg tablet 10 mg DAILY 03/04/22 03/04/22 diclofenac sodium 1 % topical gel 1 ea topical QID 03/04/22 03/04/22 famotidine 40 mg tablet 40 mg PO DAILY 03/04/22 03/04/22 fluticasone 100 mcg-salmeterol 50 1 inh inhalation Q12H 03/04/22 03/04/22 mcg/dose blistr powdr for inhalation (Advair Diskus) fluticasone propionate 50 2 spray intranasal DAILY 03/04/22 03/04/22 mcg/actuation nasal spray,suspension metoprolol tartrate 100 mg tablet 100 mg PO BID 03/04/22 03/04/22 mirabegron 50 mg tablet,extended 50 mg PO DAILY 03/04/22 03/04/22 release 24 hr (Myrbetriq) multivitamin with minerals 1 tablet PO DAILY 03/04/22 03/04/22 pantoprazole 40 mg tablet,delayed 40 mg PO DAILY 03/04/22 03/04/22 release pimavanserin 34 mg capsule 34 mg PO DAILY 03/04/22 03/04/22 quetiapine 25 mg tablet 25 mg PO HS 03/04/22 03/04/22 tamsulosin 0.4 mg capsule 0.4 mg PO DAILY 03/04/22 03/04/22 triamterene 50 mg capsule 50 mg PO BID 03/04/22 03/04/22 aspirin 81 mg chewable tablet 81 mg DIRECTED 05/11/23 05/11/23 <Patricio Crum PA-C - Last Filed: 09/01/23 18:11> Allergies/adverse reactions: Allergies Allergy/AdvReac Type Severity Reaction Status Date / Time ciprofloxacin Allergy Severe SEVERE Verified 09/01/23 09:09 MIGRAINES Penicillins Allergy Severe ANAPHYLAXIS Verified 09/01/23 09:09 Quinolones Allergy Severe ANAPHYLAXIS Verified 09/01/23 09:09 Sulfa (Sulfonamide Allergy Severe HIVES Verified 09/01/23 09:09 Antibiotics) adhesive tape Allergy Rash Verified 09/01/23 09:09 cephalexin [From Keflex] Allergy Anaphylaxis Verified 09/01/23 09:09 chlorthalidone Allergy Rash Verified 09/01/23 09:09 fentan
--- NOTE | 2023-09-01 09:35 | PC.NURSE ---
Pt to CT scan via stretcher at this time.
--- NOTE | 2023-09-01 09:40 | ECG_ITS ---
Measurements Intervals [place] Rate: 93 P: 51 [place]: 171 QRS: 9 QRSD: 134 T: 66 QT: 397 QTc: 494 Interpretive Statements SINUS RHYTHM LEFT BUNDLE BRANCH BLOCK BASELINE ARTIFACT- II, III, AVR, AVF ABNORMAL ECG COMPARED TO ECG 03/04/2022 12:12:42 NO SIGNIFICANT CHANGES Electronically Signed On 09-01-2023 15:12:46 [employer] by Gerald Francois D.O.
[2023-09-01 10:02] LABS: Hematocrit 35.5 % (37.0-47.0); Hemoglobin 11.3 g/dL (12.0-15.0); Mean Corpuscular HGB Conc 31.8 g/dl (32-36); Mean Corpuscular Hemoglobin 28.5 pg (26-34); Mean Corpuscular Volume 89.4 fl (80-100); Mean Platelet Volume 9.9 fl (7.4-10.4); Platelet Count Result 222 k/mm3 (150-375); Red Blood Count 3.97 M/mm3 (4.2-5.4); Red Cell Distribution Width 15.3 % (11.5-14.5); White Blood Count 9.5 K/mm3 (4.5-10.0)
[2023-09-01 10:14] VITALS: BP 143/63; PULSE 91; RESP 15; O2SAT 97
[2023-09-01 10:15] LABS: Alanine Aminotransferase 10 U/L (6-35); Albumin Level 3.8 g/dL (3.5-5.1); Alkaline Phosphatase 90 U/L (38-126); Anion Gap 9 mmol/L (8-16); Aspartate Amino Transferase 26 U/L (14-36); Bilirubin,Total 0.6 mg/dL (0.2-1.3); Blood Urea Nitrogen 21 mg/dL (7-17); Calcium 8.9 mg/dL (8.4-10.2); Carbon Dioxide 26 mmol/L (22-30); Chloride 103 mmol/L (98-107); Estimated CRCL calculation 47 ml/min; Estimated Glomerular Filt Rate 55; Glucose 259 mg/dL (65-110); Potassium 3.8 mmol/L (3.4-5.0); Sodium 138 mmol/L (137-145)
[2023-09-01 10:20] LABS: Appearance Urine Clear (Clear); Bacteria Urine 4+ /hpf; Bilirubin Urine Negative (Negative); Blood Urine Negative (Negative); Color Urine Yellow (Yellow); Glucose Urine UA 1+ mg/dL (Negative); Ketones Urine Negative (Negative); Leukocyte Esterase Ur 2+ LEU/UL (Negative); Nitrate Urine Negative (Negative); Non Pathogenic Casts 0-2; Protein Urine Negative (Negative); RBC Urine 0-2 /hpf (0-2); Specific Grav Ur 1.017 (1.001-1.035); Squamous Epithelial Cell Urine None seen /hpf (Few); Urobilinogen Urine 0.2 mg/dL (<2.0); WBC Urine 51-100 /hpf; pH Urine 5.5 (5.0-9.0)
[2023-09-01] MEDS: HYDROmorphone HCL INJ (*CRX) 1 MG/ML SYR 0.5 MG IV PUSH (10:25)
[2023-09-01 10:28] LABS: Lymphocytes Absolute Manual 2.66 K/mm3 (1.1-4.5); Lymphocytes Percent Manual 28 % (18-44); Monocytes Absolute Manual 0.28 K/mm3 (0.1-0.90); Monocytes Percent Manual 3 % (3-9); Neutrophils Percent Manual 66 % (46-73)
[2023-09-01 10:29] LABS: Eosinophils Absolute Manual 0.28 K/mm3 (0.02-0.5); Eosinophils Percent Manual 3 % (0-4); Platelet Estimate Adequate (Adequate); Schistocytes None Seen (NORMAL)
[2023-09-01 10:31] LABS: Add Urine Microscopic? YES
[2023-09-01 10:39] VITALS: BP 147/76; PULSE 94
[2023-09-01 10:40] VITALS: BP 163/92; PULSE 101; PULSE 99
[2023-09-01 11:24] VITALS: BP 143/70; PULSE 85; RESP 16; TEMP 36.9; O2SAT 98
--- NOTE | 2023-09-01 11:24 | PC.NURSE ---
assumed care of pt. pt resting on stretcher. informed that edp ordered iv fluids and will check on imaging. pt denies questions at this time
[2023-09-01] MEDS: SODIUM CHLORIDE 0.9% IV 1,000 ML 999 ML IV CONT (11:32)
[2023-09-01 12:30] VITALS: BP 114/64; PULSE 84; RESP 18; O2SAT 99
== END 2023-09-01 12:35 ==
PROVIDERS: Emergency Provider Physician Assistant
DX: S29.9XXA Unspecified injury of thorax, initial encounter (principal); N30.00 Acute cystitis without hematuria; G20.A1 Parkinson's disease without dyskinesia, without mention of fluctuations; J44.9 Chronic obstructive pulmonary disease, unspecified; I10 Essential (primary) hypertension; E11.9 Type 2 diabetes mellitus without complications; Z86.73 Personal history of transient ischemic attack (TIA), and cerebral infarction without residual deficits; Z87.891 Personal history of nicotine dependence; Z79.84 Long term (current) use of oral hypoglycemic drugs; Z79.82 Long term (current) use of aspirin; Z79.01 Long term (current) use of anticoagulants; I44.7 Left bundle-branch block, unspecified; I67.2 Cerebral atherosclerosis; W18.30XA Fall on same level, unspecified, initial encounter
CPT/HCPCS: 36415; 70450; 71250; 72125; 80053; 81001; 85025; 87077; 87086; 87186; 93005; 96361; 96374; 99284; J1170; J7030

== ENCOUNTER 2023-09-28 07:56 | Emergency (ER) | payer MEDICARE, MEDICAID, SELFPAY ==
--- NOTE | ~2023-09-28 | CT_ITS ---
EXAMINATION: CT cervical spine wo con DATE: 09/28/2023 08:47 INDICATION: Fall with head injury TECHNIQUE: Computed tomography (CT) of the cervical spine was performed without intravenous contrast. Automated exposure control and iterative reconstruction technique were employed. The dose-length pro duct was 425.05 mGy-cm. COMPARISON: None FINDINGS: Alignment is normal. C3-C7 anterior spinal fusion procedure with solid osseous fusion across the disc spaces except C5-C6. There is anterior plate and screws at C3-C4. Additional plain screw fixation fr om C5-C7 with fracture of one of the fixation screws at C5 and with fracture of the plate at the leve l of the screw holes at C6. There is approximately 3 mm anterior displacement of the cephalad margin of the plate fracture. There is also posterior spinal fusion without internal fixation across the C3- C4 facet joints. The above findings are all unchanged since the prior study. No osseous fracture. Mil d disc height loss at C2-C3. There are mild posterior endplate hypertrophic changes resulting in mild central canal stenosis at C5-C6 and C6-C7. There is mild to moderate multilevel bilateral facet oste oarthritis. There is moderate neural foraminal stenosis on the left at C5-C6 and C6-C7 and on the rig ht at C4-C5 and C5-C6. Mild disc height loss at a few additional remaining cervical levels. There is also mild disc height loss resulting from an eccentric to the left disc protrusion at C2-C3. Cervical soft tissues are unremarkable. Visualized apices of lungs are clear. IMPRESSION: 1. No acute osseous abnormality. 2. Stable appearance of a noncemented C3-C7 anterior spinal fusion with instrumentation failure at th e level of the C5-C6 which appears to remain unfused. Reviewed, dictated and finalized at location A. SPECIALIST IMPRESSION: 1. No acute osseous abnormality. 2. Stable appearance of a noncemented C3-C7 anterior spinal fusion with instrum entation failure at the level of the C5-C6 which appears to remain unfused.
--- NOTE | ~2023-09-28 | CT_ITS ---
CT head without contrast Indication: Trauma COMPARISON: 09/01/2023 Technique: Serial scans were obtained through the brain without the administration of contrast. Dose reduction technique was used on this scan by utilizing automated exposure control and iterative recon struction technique. The dose-length product (DLP) was 605.33 mGy-cm. Findings: There is no evidence of intracranial hemorrhage, mass lesion, or acute infarct. The ventri cles and subarachnoid spaces are unremarkable. Low attenuation regions are seen within the periventr icular white matter bilaterally, likely representing changes from chronic microvascular ischemic dise ase. There is no evidence of edema, mass effect or midline shift. The visualized paranasal sinuses and mastoid air cells are clear. Impression: No intracranial hemorrhage, mass, or acute infarct. Mild chronic white matter changes, as above. Reviewed, dictated and finalized at location . INSPECTION SPECIALIST Impression: No intracranial hemorrhage, mass, or acute infarct. Mild chronic white matter changes, as above.
[2023-09-28 07:57] VITALS: BP 156/63; PULSE 78; RESP 19; TEMP 36.4; O2SAT 98
[2023-09-28 08:09] VITALS: PULSE 78
[2023-09-28] MEDS: HYDROmorphone HCL INJ (*CRX) 1 MG/ML SYR 0.5 MG IV PUSH (09:03)
[2023-09-28 09:06] VITALS: BP 169/77; PULSE 87; RESP 12; O2SAT 99
--- NOTE | 2023-09-28 09:22 | ED.FALL ---
HPI - Fall General Chief Complaint: Fall Stated Complaint: FALL Time Seen by Provider: 09/28/23 08:19 History of Present Illness HPI Narrative: Patient is a 68-year-old female who presents ER after having a fall. She was in the shower when she slipped and fell backwards striking her head. No LOC. She takes a baby aspirin. She has mild headache. She has no change in vision or hearing. No numbness or tingling to the arms or legs. She has some achiness in her neck that is worse with twisting her head. Related Data Home Medications Medication Instructions Recorded Confirmed atorvastatin 80 mg tablet 80 mg PO DAILY 08/14/19 05/11/23 clonazepam 0.5 mg tablet 0.5 mg PO HS 08/14/19 03/04/22 ezetimibe 10 mg tablet 10 mg PO DAILY 08/14/19 03/04/22 lamotrigine 100 mg tablet 100 mg PO BID 08/14/19 03/04/22 sitagliptin phosphate 50 mg tablet 50 mg PO DAILY 08/14/19 03/04/22 (Januvia) latanoprost 0.005 % eye drops 1 drp EACH EYE HS 01/07/20 03/04/22 trazodone 100 mg tablet 50 mg PO HS 01/07/20 03/04/22 acetaminophen 325 mg tablet 650 mg PO QID PRN Pain 03/04/22 05/11/23 apixaban 5 mg tablet (Eliquis) 5 mg BID 03/04/22 03/04/22 ascorbic acid (vitamin C) 500 mg 500 mg PO DAILY 03/04/22 03/04/22 tablet calcium carbonate 600 mg-vitamin 1 tablet PO WEEKLY 03/04/22 03/04/22 D3 10 mcg (400 unit) tablet cetirizine 10 mg tablet 10 mg DAILY 03/04/22 03/04/22 diclofenac sodium 1 % topical gel 1 ea topical QID 03/04/22 03/04/22 famotidine 40 mg tablet 40 mg PO DAILY 03/04/22 03/04/22 fluticasone 100 mcg-salmeterol 50 1 inh inhalation Q12H 03/04/22 03/04/22 mcg/dose blistr powdr for inhalation (Advair Diskus) fluticasone propionate 50 2 spray intranasal DAILY 03/04/22 03/04/22 mcg/actuation nasal spray,suspension metoprolol tartrate 100 mg tablet 100 mg PO BID 03/04/22 03/04/22 mirabegron 50 mg tablet,extended 50 mg PO DAILY 03/04/22 03/04/22 release 24 hr (Myrbetriq) multivitamin with minerals 1 tablet PO DAILY 03/04/22 03/04/22 pantoprazole 40 mg tablet,delayed 40 mg PO DAILY 03/04/22 03/04/22 release pimavanserin 34 mg capsule 34 mg PO DAILY 03/04/22 03/04/22 quetiapine 25 mg tablet 25 mg PO HS 03/04/22 03/04/22 tamsulosin 0.4 mg capsule 0.4 mg PO DAILY 03/04/22 03/04/22 triamterene 50 mg capsule 50 mg PO BID 03/04/22 03/04/22 aspirin 81 mg chewable tablet 81 mg DIRECTED 05/11/23 05/11/23 Allergies Allergy/AdvReac Type Severity Reaction Status Date / Time ciprofloxacin Allergy Severe SEVERE Verified 09/01/23 09:09 MIGRAINES Penicillins Allergy Severe ANAPHYLAXIS Verified 09/01/23 09:09 Quinolones Allergy Severe ANAPHYLAXIS Verified 09/01/23 09:09 Sulfa (Sulfonamide Allergy Severe HIVES Verified 09/01/23 09:09 Antibiotics) adhesive tape Allergy Rash Verified 09/01/23 09:09 cephalexin [From Keflex] Allergy Anaphylaxis Verified 09/01/23 09:09 chlorthalidone Allergy Rash Verified 09/01/23 09:09 fentanyl Allergy Anaphylaxis Verified 09/01/23 09:09 ibuprofen Allergy Rash Verified 09/01/23 09:09 levofloxacin [From Levaquin] Allergy Rash Verified 09/01/23 09:09 vancomycin Allergy Gastrointestinal Verified 02/17/23 14:44 Upset morphine AdvReac Mild RASH Verified 02/17/23 14:44 Review of Systems Review of Systems: All systems reviewed & are unremarkable except as noted in HPI and below Constitutional: Constitutional: Reports no additional constitutional complaints ENT: Reports system reviewed and no additional complaints, except as documented Cardiovascular: Cardiovascular: Reports no additional cardiovascular complaints Respiratory: Respiratory: Reports no additional respiratory complaints Gastrointestinal: Gastrointestinal: Reports no additional gastrointestinal complaints Neurologic: Reports syncope, Reports headache(s), Denies focal weakness and Denies numbness PMFSH Past Medical History Medical History (Updated 09/28/23 @ 10:11 by Dane Peters MD) Diabetes Hyperlipidemia Hypert
[2023-09-28 10:24] VITALS: BP 140/85; PULSE 71; RESP 18; O2SAT 100
--- NOTE | 2023-09-28 10:24 | PC.NURSE ---
Attempted to call report to [facility] [phone], was transferred to another line where there was no answer
== END 2023-09-28 10:38 | disposition home or self-care (01) ==
PROVIDERS: Emergency Provider Emergency Medicine
DX: S16.1XXA Strain of muscle, fascia and tendon at neck level, initial encounter (principal); S00.93XA Contusion of unspecified part of head, initial encounter; E11.9 Type 2 diabetes mellitus without complications; E78.5 Hyperlipidemia, unspecified; I10 Essential (primary) hypertension; G20.A1 Parkinson's disease without dyskinesia, without mention of fluctuations; Z87.891 Personal history of nicotine dependence; W18.2XXA Fall in (into) shower or empty bathtub, initial encounter
CPT/HCPCS: 70450; 72125; 96374; 99284; J1170

== ENCOUNTER 2023-12-02 14:13 | Emergency (ER) | payer MEDICARE, MEDICAID, SELFPAY ==
--- NOTE | ~2023-12-02 | XR_ITS ---
EXAMINATION: XR foot LT min 3V DATE: 12/02/2023 18:07 INDICATION: Left heel pain. Swelling. TECHNIQUE: Left foot 3 views of left foot were obtained. COMPARISON: None. FINDINGS: Bone alignment is normal. No fracture. There are chronic erosions of head of first proximal phalanx and base of fifth middle phalanx, which may be from old surgery. There are likely changes of resection of head of fourth proximal pharynx. There is mild osteoarthritis of talonavicular joint. T here is an enthesophyte at posterior aspect of calcaneal tuberosity. IMPRESSION: 1. No acute fracture. Reviewed, dictated and finalized at location E. IMPRESSION: 1. No acute fracture.
[2023-12-02 15:31] VITALS: BP 139/84; PULSE 63; RESP 16; TEMP 36.6; O2SAT 100
[2023-12-02 17:25] VITALS: BP 131/83; O2SAT 100
--- NOTE | 2023-12-02 17:52 | ED.EXTPRO ---
HPI - Extremity Problem General Chief complaint: Extremity Problem,Nontraumatic Stated complaint: lump to her heel Time Seen by Provider: 12/02/23 16:59 Source: patient Mode of arrival: ambulatory Limitations: no limitations History of Present Illness HPI Narrative: This is a 68-year-old female with PMH of DM, HLD, HTN, Parkinson's who presents to the ED with chief complaint of lesion to the left heel onset yesterday. Patient reports swelling and pain this seemed to start are abruptly. She does not note any specific injury or trauma. Denies any bug bite. Denies warmth or drainage. She does note that pain worsens with relation and weightbearing. Reports chronic leg swelling since February of 2023 after having surgery for traumatic hematoma. Denies calf pain or swelling. Denies fevers, chills, nausea, vomiting, numbness, weakness. Takes Eliquis 5 mg b.i.d.. Related Data Home Medications Medication Instructions Recorded Confirmed atorvastatin 80 mg tablet 80 mg PO DAILY 08/14/19 05/11/23 clonazepam 0.5 mg tablet 0.5 mg PO HS 08/14/19 03/04/22 ezetimibe 10 mg tablet 10 mg PO DAILY 08/14/19 03/04/22 lamotrigine 100 mg tablet 100 mg PO BID 08/14/19 03/04/22 sitagliptin phosphate 50 mg tablet 50 mg PO DAILY 08/14/19 03/04/22 (Januvia) latanoprost 0.005 % eye drops 1 drp EACH EYE HS 01/07/20 03/04/22 trazodone 100 mg tablet 50 mg PO HS 01/07/20 03/04/22 acetaminophen 325 mg tablet 650 mg PO QID PRN Pain 03/04/22 05/11/23 apixaban 5 mg tablet (Eliquis) 5 mg BID 03/04/22 03/04/22 ascorbic acid (vitamin C) 500 mg 500 mg PO DAILY 03/04/22 03/04/22 tablet calcium carbonate 600 mg-vitamin 1 tablet PO WEEKLY 03/04/22 03/04/22 D3 10 mcg (400 unit) tablet cetirizine 10 mg tablet 10 mg DAILY 03/04/22 03/04/22 diclofenac sodium 1 % topical gel 1 ea topical QID 03/04/22 03/04/22 famotidine 40 mg tablet 40 mg PO DAILY 03/04/22 03/04/22 fluticasone 100 mcg-salmeterol 50 1 inh inhalation Q12H 03/04/22 03/04/22 mcg/dose blistr powdr for inhalation (Advair Diskus) fluticasone propionate 50 2 spray intranasal DAILY 03/04/22 03/04/22 mcg/actuation nasal spray,suspension metoprolol tartrate 100 mg tablet 100 mg PO BID 03/04/22 03/04/22 mirabegron 50 mg tablet,extended 50 mg PO DAILY 03/04/22 03/04/22 release 24 hr (Myrbetriq) multivitamin with minerals 1 tablet PO DAILY 03/04/22 03/04/22 pantoprazole 40 mg tablet,delayed 40 mg PO DAILY 03/04/22 03/04/22 release pimavanserin 34 mg capsule 34 mg PO DAILY 03/04/22 03/04/22 quetiapine 25 mg tablet 25 mg PO HS 03/04/22 03/04/22 tamsulosin 0.4 mg capsule 0.4 mg PO DAILY 03/04/22 03/04/22 triamterene 50 mg capsule 50 mg PO BID 03/04/22 03/04/22 aspirin 81 mg chewable tablet 81 mg DIRECTED 05/11/23 05/11/23 Allergies Allergy/AdvReac Type Severity Reaction Status Date / Time ciprofloxacin Allergy Severe SEVERE Verified 12/02/23 16:25 MIGRAINES Penicillins Allergy Severe ANAPHYLAXIS Verified 12/02/23 16:25 Quinolones Allergy Severe ANAPHYLAXIS Verified 12/02/23 16:25 Sulfa (Sulfonamide Allergy Severe HIVES Verified 12/02/23 16:25 Antibiotics) adhesive tape Allergy Rash Verified 12/02/23 16:25 cephalexin [From Keflex] Allergy Anaphylaxis Verified 12/02/23 16:25 chlorthalidone Allergy Rash Verified 12/02/23 16:25 fentanyl Allergy Anaphylaxis Verified 12/02/23 16:25 ibuprofen Allergy Rash Verified 12/02/23 16:25 levofloxacin [From Levaquin] Allergy Rash Verified 12/02/23 16:25 vancomycin Allergy Gastrointestinal Verified 12/02/23 16:25 Upset morphine AdvReac Mild RASH Verified 12/02/23 16:25 Review of Systems Review of Systems: All systems as dictated in HPI PMFSH Past Medical History Medical History (Updated 12/03/23 @ 00:00 by Chandrika Negro) Diabetes Hyperlipidemia Hypertension Parkinsons disease Family History Family History Mother Parkinson's disease Father Brain aneurysm Socia
[2023-12-02 18:56] VITALS: BP 129/77; PULSE 62; RESP 15; TEMP 36.6; O2SAT 100
== END 2023-12-02 18:57 | disposition home or self-care (01) ==
PROVIDERS: Emergency Provider Physician Assistant
DX: M77.32 Calcaneal spur, left foot (principal); I10 Essential (primary) hypertension; E11.9 Type 2 diabetes mellitus without complications; E78.5 Hyperlipidemia, unspecified; G20.A1 Parkinson's disease without dyskinesia, without mention of fluctuations; Z87.891 Personal history of nicotine dependence; Z79.01 Long term (current) use of anticoagulants; Z79.84 Long term (current) use of oral hypoglycemic drugs; Z79.82 Long term (current) use of aspirin
CPT/HCPCS: 73630; 99283

== ENCOUNTER 2024-02-17 08:50 | Observation (INO) | payer MEDICARE, MEDICAID, SELFPAY ==
[2024-02-17] VITALS (24 sets, daily range): BP systolic 101–147; BP diastolic 59–86; PULSE 82–102; RESP 13–20; TEMP 36.2–36.6; O2SAT 91–100; BMI 24.5
--- NOTE | ~2024-02-17 | XR_ITS ---
EXAM: XR pelvis 1-2V DATE: 02/17/2024 16:12 HISTORY: fall, pain . COMPARISON: X-ray left femur and CTA left lower extremity 02/17/2023; CT abdomen pelvis 08/19/2018. FINDINGS: Decreased mineralization. Lumbar fusion hardware. 2 small screws project over the right il iac wing, seen as far back as at least 2019. Lumbar degenerative disc disease. No fracture or disloca tion. No lytic or blastic lesion. Mild degenerative changes in the bilateral hips and pubic symphysis . No erosion or periosteal change. Soft tissues within normal limits. IMPRESSION: No acute osseous finding in the pelvis. Reviewed, dictated and finalized at location K.
--- NOTE | ~2024-02-17 | CT_ITS ---
EXAMINATION: CT brain wo con DATE: 02/17/2024 10:22 INDICATION: Syncope. Head injury. TECHNIQUE: Computed tomography (CT) of the head was performed without intravenous contrast. The mA wa s adjusted according to patient size. Iterative reconstruction technique was employed. The dose-lengt h product was 605.33 mGy-cm. COMPARISON: Head CT 09/28/2023 FINDINGS: There are scattered areas of low attenuation in the cerebral white matter. There is no intr acranial hemorrhage, acute infarction, or abnormal intracranial mass lesion. The ventricles are krissy l in size. There are likely changes of ocular lens replacement surgeries. The paranasal sinuses are c lear. The mastoid air cells are normal. There is frontal scalp soft tissue swelling. IMPRESSION: 1. Stable moderate nonspecific cerebral white matter disease, which likely represents chronic small v essel ischemic disease. Reviewed, dictated and finalized at location E. IMPRESSION: 1. Stable moderate nonspecific cerebral white matter disease, which likely repr esents chronic small vessel ischemic disease.
--- NOTE | ~2024-02-17 | XR_ITS ---
EXAMINATION: XR chest 2V DATE: 02/17/2024 09:46 INDICATION: Syncope. TECHNIQUE: Frontal and lateral views of the chest were obtained. COMPARISON: Chest 2 views 03/04/2022, chest CT 09/01/2023 FINDINGS: The lung volumes are small. There are airspace opacities in the lower lung zones. No pleura l effusion or pneumothorax. The heart size is normal. Surgical clips in the right upper quadrant are likely from cholecystectomy. There are changes of anterior fusion procedure in cervical spine. IMPRESSION: 1. Small lung volumes with airspace opacities in the lower lung zones, likely atelectasis. Reviewed, dictated and finalized at location E. IMPRESSION: 1. Small lung volumes with airspace opacities in the lower lung zones, likely a telectasis.
--- NOTE | 2024-02-17 09:02 | ECG_ITS ---
Test Date: 2024-02-17 09:14:45 Measurements Intervals [place] Rate: 89 P: 51 KS: 173 QRS: 5 QRSD: 133 T: 39 QT: 423 QTc: 516 Interpretive Statements SINUS RHYTHM LEFT BUNDLE BRANCH BLOCK BASELINE ARTIFACT- I, II, III, AVR, AVL, AVF, V1 ABNORMAL ECG No previous ECG available for comparison Electronically Signed On 02-17-2024 12:27:14 CDT by Gerald Francois D.O.
[2024-02-17 09:28] LABS: Basophils Absolute Auto 0.1 K/mm3 (0.0-0.1); Basophils Percent Auto 0.5 % (0.2-1.2); Eosinophils Absolute Auto 0.1 K/mm3 (0-0.3); Eosinophils Percent Auto 0.5 % (0-4.4); Hematocrit 37.8 % (37.0-47.0); Hemoglobin 12.4 g/dL (12.0-15.0); Immature Granulocyte Absolute 0.05 K/mm3 (0.00-0.031); Immature Granulocyte Percent A 0.3 % (0-0.5); Lymphocytes Absolute Auto 1.72 K/mm3 (0.9-3.2); Lymphocytes Percent Auto 11.3 % (18.3-44.2); Mean Corpuscular HGB Conc 32.8 g/dl (32-36); Mean Corpuscular Hemoglobin 28.8 pg (26-34); Mean Corpuscular Volume 87.9 fl (80-100); Mean Platelet Volume 9.1 fl (7.4-10.4); Monocytes Percent Auto 6.5 % (2.6-8.5); Neutrophils Absolute Auto 12.3 K/mm3 (1.3-6.7); Neutrophils Percent Auto 80.9 % (45.5-73.1); Platelet Count Result 261 k/mm3 (150-375); Red Cell Distribution Width 15.3 % (11.5-14.5); White Blood Count 15.2 K/mm3 (4.5-10.0)
--- NOTE | 2024-02-17 09:32 | ED.GENADULT ---
HPI - General Adult General Chief complaint: Fall Stated complaint: unwitnessed GLF last noc Time Seen by Provider: 02/17/24 08:52 History of Present Illness HPI narrative: Patient is a 68-year-old female who presents ER after having syncopal event last night. She reports she got up to use restroom when she got lightheaded and passed out. She know she hit her head but has no pain at this time. She is not on blood thinning medications. Reports she was recently diagnosed with UTI and prescribed antibiotics however she did not receive them and has not been taking them. No nausea / vomiting. No chest pain or racing heart. No additional complaints at this time. Related Data Home Medications Medication Instructions Recorded Confirmed atorvastatin 80 mg tablet 80 mg PO DAILY 08/14/19 02/17/24 clonazepam 0.5 mg tablet 0.5 mg PO BID 08/14/19 02/17/24 ezetimibe 10 mg tablet 10 mg PO DAILY 08/14/19 02/17/24 lamotrigine 100 mg tablet 100 mg PO BID 08/14/19 02/17/24 latanoprost 0.005 % eye drops 1 drp EACH EYE HS 01/07/20 02/17/24 acetaminophen 325 mg tablet 650 mg PO QID PRN Pain 03/04/22 02/17/24 diclofenac sodium 1 % topical gel 1 ea topical QID 03/04/22 02/17/24 famotidine 40 mg tablet 40 mg PO DAILY 03/04/22 02/17/24 fluticasone 100 mcg-salmeterol 50 1 inh inhalation Q12H 03/04/22 02/17/24 mcg/dose blistr powdr for inhalation (Advair Diskus) fluticasone propionate 50 2 spray intranasal DAILY 03/04/22 02/17/24 mcg/actuation nasal spray,suspension multivitamin with minerals 1 tablet PO DAILY 03/04/22 02/17/24 aspirin 81 mg chewable tablet 81 mg DIRECTED 05/11/23 02/17/24 albuterol sulfate 90 mcg/actuation 2 puff inhalation QID PRN Wheezing 02/17/24 02/17/24 aerosol inhaler (Ventolin HFA) atropine 1 % eye drops 1 drp EACH EYE BID 02/17/24 02/17/24 calcium carbonate 500 mg PO Q4-6H PRN Heartburn 02/17/24 02/17/24 carbidopa 25 mg-levodopa 100 mg 1 tablet PO TID 02/17/24 02/17/24 tablet cholecalciferol (vitamin D3) 25 25 mcg PO DAILY 02/17/24 02/17/24 mcg (1,000 unit) tablet (Vitamin D3) gabapentin 400 mg capsule 400 mg PO TID 02/17/24 02/17/24 lisinopril 20 mg tablet 20 mg PO DAILY 02/17/24 02/17/24 lurasidone 60 mg tablet 60 mg PO QAM 02/17/24 02/17/24 metoprolol succinate 100 mg 100 mg PO DAILY 02/17/24 02/17/24 tablet,extended release 24 hr omeprazole 20 mg capsule,delayed 20 mg PO DAILY 02/17/24 02/17/24 release phenazopyridine 200 mg tablet 200 mg PO TID PRN Pain, Mild 02/17/24 02/17/24 pimavanserin 34 mg capsule 34 mg PO DAILY 02/17/24 02/17/24 (Nuplazid) potassium chloride 20 mEq 20 meq PO DAILY 02/17/24 02/17/24 tablet,extended release pramipexole 1 mg tablet 1 mg PO TID 02/17/24 02/17/24 zolpidem 12.5 mg tablet,extended 12.5 mg PO HS PRN Sleep 02/17/24 02/17/24 release,multiphase Allergies Allergy/AdvReac Type Severity Reaction Status Date / Time ciprofloxacin Allergy Severe SEVERE Verified 02/17/24 13:42 MIGRAINES Penicillins Allergy Severe ANAPHYLAXIS Verified 02/17/24 13:42 Quinolones Allergy Severe ANAPHYLAXIS Verified 02/17/24 13:42 Sulfa (Sulfonamide Allergy Severe HIVES Verified 02/17/24 13:42 Antibiotics) adhesive tape Allergy Rash Verified 02/17/24 13:42 cephalexin [From Keflex] Allergy Anaphylaxis Verified 02/17/24 13:42 chlorthalidone Allergy Rash Verified 02/17/24 13:42 fentanyl Allergy Anaphylaxis Verified 02/17/24 13:42 ibuprofen Allergy Rash Verified 02/17/24 13:42 levofloxacin [From Levaquin] Allergy Rash Verified 02/17/24 13:42 vancomycin Allergy Gastrointestinal Verified 02/17/24 13:42 Upset morphine AdvReac Mild RASH Verified 02/17/24 13:42 Review of Systems Review of Systems: All systems reviewed & are unremarkable except as noted in HPI and below Constitutional: Constitutional: Reports no additional constitutional complaints ENT: Reports system reviewed and no additional complaints, except as documented Cardiovascular: Cardiovascular: Rep
[2024-02-17 09:41] LABS: Alanine Aminotransferase 15 U/L (6-35); Albumin Level 4.6 g/dL (3.5-5.1); Alkaline Phosphatase 88 U/L (38-126); Anion Gap 12 mmol/L (4-12); Aspartate Amino Transferase 50 U/L (14-36); Bilirubin,Total 1.3 mg/dL (0.2-1.3); Blood Urea Nitrogen 14 mg/dL (7-17); Calcium 9.5 mg/dL (8.4-10.2); Carbon Dioxide 28 mmol/L (22-30); Chloride 101 mmol/L (98-107); Estimated CRCL calculation 47 ml/min; Estimated Glomerular Filt Rate 55; Glucose 180 mg/dL (65-110); Potassium 3.2 mmol/L (3.4-5.0); Sodium 141 mmol/L (137-145)
[2024-02-17 09:44] LABS: Appearance Urine Turbid (Clear); Bacteria Urine 4+ /hpf; Bilirubin Urine Negative (Negative); Blood Urine 2+ (Negative); Color Urine Dark Yellow (Yellow); Glucose Urine UA Negative (Negative); Ketones Urine Negative (Negative); Leukocyte Esterase Ur 3+ LEU/UL (Negative); Need Manual Microscopic Reviewed; Nitrate Urine Positive (Negative); Non Pathogenic Casts 0-2; Protein Urine 3+ mg/dL (Negative); Specific Grav Ur 1.011 (1.001-1.035); Squamous Epithelial Cell Urine None Seen /hpf (Few); WBC Urine >100 /hpf (0-3); pH Urine 6.5 (5.0-9.0)
[2024-02-17 09:45] LABS: Add Urine Microscopic? YES
--- NOTE | 2024-02-17 11:05 | PC.NURSE ---
Assumed care of pt from LIA Murphy at this time. Pt resting comfortably in bed w call light within reach.
--- NOTE | 2024-02-17 13:09 | PM.IMHP ---
H&P: HPI History of Present Illness Date/Time: 02/17/24 13:09 Chief Complaint: Fall, UTI Narrative: 68 y/o F presents here with fall and UTI with PMH of DM, HLD, HTN, and Parkinson's. The patient presents here via EMS from [facility] (there due to falls and chronic cystitis) for further evaluation post-fall. Patient had a ground level fall last night around 3:30 a.m. States she was getting up to use the restroom when her legs gave out. Fell forward and hit right side of her forehead on the sink, unsure if she fell onto her knees or hips. Reporting hip pain bilaterally and has tenderness across pubis symphysis and bilateral groin without obvious deformity. Currently denying syncopal episode, dizziness, loss of consciousness, or lightheadedness. +Headstrike, now with a mild headache. Denies pain in her neck or back. The patient is not on a blood thinner. Also reporting that she was recently seen at [facility] for a fall and was diagnosed with the UTI but was not prescribed antibiotics. Has difficult time treating UTIs due to extensive allergies. 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 Currently endorsing dysuria, urinary frequency, intermittent urinary hesitancy, and foul odor. Urinary symptom onset today. No hematuria, abdominal, nausea, vomiting, or diarrhea. Reports chronic LE edema, left usually worse than right. No change. Initial VS at presentation: 97.9? F, HR 90, RR 20, 136/67, and 97% on RA. ED workup showed: WBC 15.2, hemoglobin 0.4, potassium 3.2, creatinine 1.0 and GFR 55 glucose 180, AST 50. UA consistent with UTI. CXR showed small lung volumes with airspace opacities in lower lung zones likely atelectasis. CT head showed stable moderate nonspecific cerebral white matter disease. Review of Systems Review of Systems: All systems reviewed & are unremarkable except as noted in HPI and below PMFSH Past Medical History Medical History Anxiety and depression Asthma Atrial flutter Bipolar disorder Carotid artery stenosis COPD (chronic obstructive pulmonary disease) Diabetes GERD (gastroesophageal reflux disease) Glaucoma Hyperlipidemia Hypertension Parkinsons disease TIA (transient ischemic attack) Family History Family History Mother Parkinson's disease Father Brain aneurysm Social History Social History Smoking packs per day: 1 Smoking cigarettes per day: 20.0 Years smoked: 30 Smoking pack-years: 30.00 Smoking status: Never smoker Alcohol intake: never Substance use: never Do You Feel Safe in your Home?: Yes Lack of Transportation: No Lack of Food: Never True Current Housing: I Have Housing Concerned About Future Housing: No Difficulty Paying Gas/Electric Bills: No Difficulty Paying for Meds: No Currently Unemployed: No Education: Decline to Answer Difficulty w/ Childcare or Family Care: No Gender identity (if verbalized by the patient): Female Spiritual care concerns: No (Luthran) Meds Home Medications and Allergies Home Medications Medication Instructions Recorded Confirmed Type atorvastatin 80 mg tablet 80 mg PO DAILY 08/14/19 02/17/24 History clonazepam 0.5 mg tablet 0.5 mg PO BID 08/14/19 02/17/24 History ezetimibe 10 mg tablet 10 mg PO DAILY 08/14/19 02/17/24 History lamotrigine 100 mg tablet 100 mg PO BID 08/14/19 02/17/24 History latanoprost 0.005 % eye drops 1 drp EACH EYE HS 01/07/20 02/17/24 History acetaminophen 325 mg tablet 650 mg PO QID PRN Pain 03/04/22 02/17/24 History diclofenac sodium 1 % topical gel 1 ea topical QID 03/04/22 02/17/24 History famotidine 40 mg tablet 40 mg PO DAILY 03/04/22 02/17/24 History fluticasone 100 mcg-salmeterol 50 1 inh inhalation Q12H 03/04/22 02/17/24 History mcg/do
--- NOTE | 2024-02-17 13:38 | PC.NURSE ---
This patient, Ivonne Santos, was admitted to 3 Med Surg Room 312-01 at 13:30. Patient/family oriented to hospital policies and general routines including ID bracelet, bed and alarms, visiting hours, pain management, procedures, bathroom and other care routines, personal items, smoking policy, room service/diet, and visiting hours. Information on how to activate the Rapid Response Team has been discussed. Patient/Family are encouraged to report perceived risks to care and to ask questions if they do not understand what they are told or what they should do.
[2024-02-17] MEDS: GENTAMICIN SULFATE INJ 355 MG in DEXTROSE 5% 100 ML 100 MG IVPB (14:08)
[2024-02-17 14:36] LABS: Troponin I < 0.012 ng/mL (0.000-0.034)
[2024-02-17] MEDS: clonazePAM (*CRX) 0.5 MG TABLET PO (17:07)
[2024-02-17] MEDS: GABAPENTIN 400 MG CAPSULE PO (17:07)
[2024-02-17] MEDS: DICLOFENAC SODIUM 1% 100 GM GEL (*BKC) 1 APPLIC TOPICAL (17:07)
[2024-02-17] MEDS: PRAMIPEXOLE 1 MG TABLET PO (17:07)
[2024-02-17] MEDS: CARBIDOPA/LEVODOPA 25/100 MG TABLET 1 TABLET PO (17:09)
[2024-02-17] MEDS: HYDROcodone/acetaminophen (*CRX) 5-325 MG TABLET 1 TAB PO (20:49)
[2024-02-17] MEDS: ZOLPIDEM TARTRATE (*CRX) 5 MG TABLET PO (20:49)
[2024-02-17] MEDS: lamoTRIgine 100 MG TABLET 200 MG PO (20:49)
[2024-02-17] MEDS: ATROPINE SULFATE 1% OPHTH SOLN 5 ML BOTTLE 1 DROP EACH EYE (20:52)
[2024-02-18] VITALS (10 sets, daily range): BP systolic 124–145; BP diastolic 59–89; PULSE 68–97; RESP 16–20; TEMP 36.1–36.8; O2SAT 95–98
--- NOTE | 2024-02-18 | ECHO_ITS ---
Patient Info Name: Ivonne Santos Age: 68 years : 1955 Gender: Female Ht: 67 in Wt: 156 lbs BSA: 1.84 m2 HR: 97 bpm BP: 124 / 89 mmHg Heart Rhythm: Sinus Rhythm Technical Quality: Fair Exam Date: 02/18/2024 2:44 PM Exam Location: Echo Lab Patient Status: Inpatient Admit Date: 02/17/2024 Staff Ordering Physician: Marti Sahu DO Cdl A Driver: Nakia Calvillo [facility] Attending Provider: Sravan Fuller MD Referring Physician: Adelina SÁNCHEZ; Exam Type: CA echo doppler color flow Study Info Indications R55 - Syncope and collapse Complete two-dimensional, color flow and Doppler transthoracic echocardiogram is performed. Summary 1. Left ventricular chamber dimension is normal. 2. Left ventricular systolic function is normal, estimated at 60-65%. 3. The left ventricular diastolic function is grade I diastolic dysfunction. 4. Right ventricular systolic function is normal. 5. Left atrial chamber dimension is mildly enlarged. 6. There is mild mitral valve regurgitation. 7. There is mild tricuspid valve regurgitation. Left Ventricle Left ventricular chamber dimension is normal. Left ventricular systolic function is normal, estimated at 60-65%. There is no increased left ventricular wall thickness. The left ventricular diastolic function is grade I diastolic dysfunction. Right Ventricle Right ventricular chamber dimension is normal. Right ventricular systolic function is normal. Left Atria Left atrial chamber dimension is mildly enlarged. Right Atria Right atrial chamber dimension is normal. Atrial Septum Intact interatrial septum visualized by color flow imaging. Aortic Valve The aortic valve is trileaflet. There is mild aortic valve sclerosis. There is no aortic valve stenosis. There is no aortic valve regurgitation. Pulmonic Valve The pulmonic valve is not well visualized. There is trace pulmonic regurgitation. Mitral Valve There is mild mitral valve regurgitation. Tricuspid Valve There is mild tricuspid valve regurgitation. Pericardium/Pleural The pericardium appears epicardial fat pad. There is no pericardial effusion. Inferior Vena Cava Normal inferior vena cava with >50% collapse upon inspiration consistent with normal right atrial pressure, 3 mmHg. Aorta The aortic root size at the sinus of Valsalva is normal. Left Ventricular Outflow Tract Name Value Normal LVOT 2D LVOT Diameter 1.9 cm LVOT Doppler LVOT Peak Gradient 7 mmHg LVOT Mean Gradient 4 mmHg LVOT VTI 25 cm LVOT VTI/AV VTI Ratio 0.7 LVOT Stroke Volume 69 ml LVOT CO 5.2 l/min LVOT CI 2.9 l/min/m2 Pulmonic Valve Name Value Normal RVOT Doppler RVOT Peak Gradient 2 mmHg PV Doppler
[2024-02-18 05:46] LABS: Basophils Percent Auto 0.4 % (0.2-1.2); Eosinophils Absolute Auto 0.2 K/mm3 (0-0.3); Eosinophils Percent Auto 2.8 % (0-4.4); Hematocrit 35.4 % (37.0-47.0); Hemoglobin 11.5 g/dL (12.0-15.0); Immature Granulocyte Absolute 0.03 K/mm3 (0.00-0.031); Immature Granulocyte Percent A 0.4 % (0-0.5); Lymphocytes Absolute Auto 2.69 K/mm3 (0.9-3.2); Lymphocytes Percent Auto 32.2 % (18.3-44.2); Mean Corpuscular HGB Conc 32.5 g/dl (32-36); Mean Corpuscular Hemoglobin 29.1 pg (26-34); Mean Corpuscular Volume 89.6 fl (80-100); Monocytes Absolute Auto 0.5 K/mm3 (0.1-0.6); Monocytes Percent Auto 6.5 % (2.6-8.5); Neutrophils Absolute Auto 4.8 K/mm3 (1.3-6.7); Neutrophils Percent Auto 57.7 % (45.5-73.1); Platelet Count Result 210 k/mm3 (150-375); Red Blood Count 3.95 M/mm3 (4.2-5.4); Red Cell Distribution Width 15.4 % (11.5-14.5); White Blood Count 8.4 K/mm3 (4.5-10.0)
[2024-02-18 06:00] LABS: Alanine Aminotransferase 13 U/L (6-35); Albumin Level 3.5 g/dL (3.5-5.1); Alkaline Phosphatase 70 U/L (38-126); Anion Gap 8 mmol/L (4-12); Aspartate Amino Transferase 66 U/L (14-36); Bilirubin,Total 1.1 mg/dL (0.2-1.3); Blood Urea Nitrogen 12 mg/dL (7-17); Calcium 8.7 mg/dL (8.4-10.2); Carbon Dioxide 32 mmol/L (22-30); Chloride 101 mmol/L (98-107); Estimated CRCL calculation 47 ml/min; Estimated Glomerular Filt Rate 55; Glucose 111 mg/dL (65-110); Potassium 2.9 mmol/L (3.4-5.0); Sodium 141 mmol/L (137-145)
[2024-02-18] MEDS: THERAPEUTIC MULTIVITAMINS/MINERALS TAB (*BKC) 1 TABLET PO (08:32)
[2024-02-18] MEDS: METOPROLOL SUCCINATE EXT REL 100 MG TABCR PO (08:32)
[2024-02-18] MEDS: POTASSIUM CHLORIDE 20 MEQ ER TABLET PO (08:32)
[2024-02-18] MEDS: CHOLECALCIFEROL 1,000 UNITS TABLET 1000 UNITS PO (08:32)
[2024-02-18] MEDS: EZETIMIBE 10 MG TABLET PO (08:32)
[2024-02-18] MEDS: lamoTRIgine 100 MG TABLET PO (08:32)
[2024-02-18] MEDS: GABAPENTIN 400 MG CAPSULE PO ×3 (08:32→17:17)
[2024-02-18] MEDS: FAMOTIDINE 20 MG TABLET 40 MG PO (08:32)
[2024-02-18] MEDS: PANTOPRAZOLE 40 MG TABLET PO (08:32)
[2024-02-18] MEDS: ASPIRIN 81 MG CHEWABLE TABLET PO (08:32)
[2024-02-18] MEDS: ATORVASTATIN 40 MG TABLET 80 MG PO (08:32)
[2024-02-18] MEDS: PRAMIPEXOLE 1 MG TABLET PO ×3 (08:32→17:17)
[2024-02-18] MEDS: CARBIDOPA/LEVODOPA 25/100 MG TABLET 1 TABLET PO ×3 (08:32→17:17)
[2024-02-18] MEDS: lisinopriL 20 MG TABLET PO (08:33)
[2024-02-18] MEDS: clonazePAM (*CRX) 0.5 MG TABLET PO ×2 (08:33→17:17)
[2024-02-18] MEDS: DICLOFENAC SODIUM 1% 100 GM GEL (*BKC) 1 APPLIC TOPICAL ×4 (08:34→20:10)
[2024-02-18] MEDS: FLUTICASONE PROPIONATE 0.05% NA SPR 16 GM BTL (*BKC) 2 SPRAY NASAL (08:34)
[2024-02-18] MEDS: ATROPINE SULFATE 1% OPHTH SOLN 5 ML BOTTLE 1 DROP EACH EYE ×2 (08:34→20:10)
[2024-02-18] MEDS: NITROFURANTOIN MONOHYD MACROCR 100 MG CAP PO ×2 (10:00→20:11)
--- NOTE | 2024-02-18 12:17 | PCPTNOTE ---
On 02/18/24, the student, [Wilda Ferreira], provided care and completed [facility] documentation on this patient. I have reviewed the student's documentation and agree with the findings.
[2024-02-18] MEDS: POTASSIUM CHLORIDE 20 MEQ ER TABLET 40 MEQ PO (14:00)
--- NOTE | 2024-02-18 16:55 | PM.IMPN ---
Progress Note: A&P Assessment and Plan (1) Syncope: Code(s): R55 - Syncope and collapse Status: Acute (2) Ground-level fall: Code(s): W18.30XA - Fall on same level, unspecified, initial encounter Status: Acute (3) Urinary tract infection: Code(s): N39.0 - Urinary tract infection, site not specified Status: Acute Plan # syncope - patient has had recurrent falls, unclear etiology - check echocardiogram - monitor on telemetry, likely sending home with [facility] Holter monitor - checking orthostatic vitals # UTI - antibiotic: Switching to Macrobid based on sensitivities, was given dose of gentamicin, normalization of leukocytosis - for bladder pain on phenazopyridine - urine culture growing Gram-negative zoë (h/o klebisiella) # hypokalemia -is repleting potassium chloride as needed - potassium 2.9, giving 20 mg once potassium chloride daily, giving extra 40 mEq KCL in the afternoon # chronic conditions - Asthma COPD: Advair - bipolar disorder: on Mirapex, lurasidone, lamictal, p.r.n. Klonopin - hyperlipidemia, h/o TIA: beta-sadie, Zetia, atorvastatin, aspirin - essential hypertension: Metoprolol, lisinopril - Parkinson disease: on pramipexole, carbidopa/levodopa - insomnia: zolpidem - GERD: Protonix, pepcid - peripheral neuropathy: Gabapentin - arthritis: Voltaren gel on joints Diet: heart healthy DVT prophylaxis: lovenox Code status: full code Disposition: [facility] in 1-2 days Time Spent With Patient Time: 35 minutes Subjective Date/time seen: 02/18/24 16:55 Interval history: Patient seen and examined. She is admitted yesterday for which appears to be a syncopal episode. patient is 1st attributed to hitting her head and having mechanical fall however on further investigation she appears not to recall the events that led her to the ground. She has been recently diagnosed with the UTI and has been on antibiotics. She denies fever, chills, nausea vomiting, diarrhea, chest pain, shortness of breath, dysuria. she feels like she is back at baseline. Review of Systems Review of Systems: 10 point ROS complete, negative other than what is specified in HPI. Exam Narrative: - GENERAL: pleasant elder woman in no acute distress. Well-nourished. - EYES: EOMI. Anicteric. - HENT: Moist mucous membranes. - LUNGS: Clear to auscultation bilaterally, no wheezing, rhonchi, or rales. - CARDIOVASCULAR: Regular rate and rhythm. No murmur. No JVD. - ABDOMEN: Soft, non-tender and non-distended. No palpable masses. - EXTREMITIES: No edema. Peripheral pulses 2+. Non-tender. - NEUROLOGIC: No focal neurological deficits. CN II-XII grossly intact. - PSYCHIATRIC: Awake, Alert and oriented x 3. Appropriate mood and affect. - SKIN: No rashes or lesions. Warm. - LYMPH: No cervical lymphadenopathy. Objective Data Vital Signs Vital Signs: Vital Signs - 24 hr 02/17/24 17:37 02/17/24 21:14 02/17/24 20:00 Temperature 36.6 C Pulse Rate 88 84 Respiratory Rate 18 19 Blood Pressure 101/59 L Pulse Oximetry 95 96 Oxygen Delivery Room Air Room Air 02/17/24 20:00 02/18/24 00:00 02/18/24 04:00 Temperature Pulse Rate 85 72 79 Respiratory Rate Blood Pressure Pulse Oximetry Oxygen Delivery 02/18/24 05:33 02/18/24 10:06 02/18/24 08:00 Temperature 36.1 C L Pulse Rate 97 97 Respiratory Rate 16 16 Blood Pressure 124/89 Pulse Oximetry 98 98 Oxygen Delivery Room Air Room Air 02/18/24 11:31 02/18/24 14:00 02/18/24 14:05 Temperature 36.7 C 36.7 C Pulse Rate 77 84 Respiratory Rate 20 18 Blood Pressure 126/59 L 143/73 H Pulse Oximetry 95 96 Oxygen Delivery Room Air 02/18/24 14:10 Temperature 36.7 C Pulse Rate 85 Respiratory Rate 18 Blood Pressure 145/61 H Pulse Oximetry 98 Oxygen Delivery Intake/Output Intake/Output: Intake & Output 02/15/24 02/16/24 02/17/24 02/18/24 23:59 23:59 23:59 23:59 Intake Total 100
[2024-02-18] MEDS: ZOLPIDEM TARTRATE (*CRX) 5 MG TABLET PO (20:11)
[2024-02-18] MEDS: lamoTRIgine 100 MG TABLET 200 MG PO (20:11)
[2024-02-18] MEDS: NYSTATIN 100,000 UNITS/ML SUSP 5 ML ORAL.SUSP PO (20:11)
[2024-02-18] MEDS: HYDROcodone/acetaminophen (*CRX) 5-325 MG TABLET 1 TAB PO (20:11)
--- NOTE | 2024-02-18 20:25 | PCRCNOTE ---
Pt refused her 1999 inhaler treatment. Pt lungs sound clear/diminished. RT asked multiple times and patient denied treatment. RN aware.
[2024-02-19] VITALS: PULSE 61
[2024-02-19 04:00] VITALS: PULSE 66
[2024-02-19 05:38] VITALS: BP 147/69; PULSE 78; RESP 18; TEMP 37.1; O2SAT 93
[2024-02-19] MEDS: BENZOCAINE/MENTHOL (*BKC) 18 EA LOZENGE 1 LOZENGE PO (06:10)
[2024-02-19 06:17] LABS: Basophils Absolute Auto 0.1 K/mm3 (0.0-0.1); Basophils Percent Auto 0.5 % (0.2-1.2); Eosinophils Absolute Auto 0.3 K/mm3 (0-0.3); Eosinophils Percent Auto 3.4 % (0-4.4); Hemoglobin 12.1 g/dL (12.0-15.0); Immature Granulocyte Absolute 0.04 K/mm3 (0.00-0.031); Immature Granulocyte Percent A 0.4 % (0-0.5); Lymphocytes Absolute Auto 2.62 K/mm3 (0.9-3.2); Mean Corpuscular HGB Conc 31.8 g/dl (32-36); Mean Corpuscular Hemoglobin 28.7 pg (26-34); Mean Platelet Volume 9.3 fl (7.4-10.4); Monocytes Absolute Auto 0.6 K/mm3 (0.1-0.6); Monocytes Percent Auto 5.9 % (2.6-8.5); Neutrophils Absolute Auto 5.8 K/mm3 (1.3-6.7); Neutrophils Percent Auto 61.8 % (45.5-73.1); Platelet Count Result 240 k/mm3 (150-375); Red Blood Count 4.22 M/mm3 (4.2-5.4); Red Cell Distribution Width 15.2 % (11.5-14.5); White Blood Count 9.4 K/mm3 (4.5-10.0)
[2024-02-19 06:28] LABS: Anion Gap 9 mmol/L (4-12); Blood Urea Nitrogen 7 mg/dL (7-17); Calcium 9.1 mg/dL (8.4-10.2); Carbon Dioxide 34 mmol/L (22-30); Chloride 99 mmol/L (98-107); Estimated CRCL calculation 58 ml/min; Estimated Glomerular Filt Rate > 60; Glucose 119 mg/dL (65-110); Magnesium 1.7 mg/dL (1.6-2.3); Potassium 3.1 mmol/L (3.4-5.0); Sodium 142 mmol/L (137-145)
[2024-02-19 08:00] VITALS: BP 102/54; PULSE 84; PULSE 88; RESP 18; TEMP 36.4; O2SAT 92
[2024-02-19] MEDS: NYSTATIN 100,000 UNITS/ML SUSP 5 ML ORAL.SUSP PO ×2 (08:53→12:28)
[2024-02-19] MEDS: PANTOPRAZOLE 40 MG TABLET PO (08:53)
[2024-02-19] MEDS: ENOXAPARIN 40 MG/0.4 ML SYRINGE SUB-Q (08:53)
[2024-02-19 08:54] VITALS: PULSE 85
[2024-02-19] MEDS: METOPROLOL SUCCINATE EXT REL 100 MG TABCR PO (08:54)
[2024-02-19] MEDS: ATORVASTATIN 40 MG TABLET 80 MG PO (08:54)
[2024-02-19] MEDS: PRAMIPEXOLE 1 MG TABLET PO ×2 (08:54→12:29)
[2024-02-19] MEDS: CHOLECALCIFEROL 1,000 UNITS TABLET 1000 UNITS PO (08:54)
[2024-02-19] MEDS: lamoTRIgine 100 MG TABLET PO (08:54)
[2024-02-19] MEDS: EZETIMIBE 10 MG TABLET PO (08:55)
[2024-02-19] MEDS: CARBIDOPA/LEVODOPA 25/100 MG TABLET 1 TABLET PO ×2 (08:56→12:29)
[2024-02-19] MEDS: GABAPENTIN 400 MG CAPSULE PO ×2 (08:56→12:29)
[2024-02-19] MEDS: ASPIRIN 81 MG CHEWABLE TABLET PO (08:56)
[2024-02-19] MEDS: clonazePAM (*CRX) 0.5 MG TABLET PO (08:56)
[2024-02-19] MEDS: THERAPEUTIC MULTIVITAMINS/MINERALS TAB (*BKC) 1 TABLET PO (08:56)
[2024-02-19] MEDS: NITROFURANTOIN MONOHYD MACROCR 100 MG CAP PO (08:56)
[2024-02-19] MEDS: lisinopriL 20 MG TABLET PO (08:56)
[2024-02-19] MEDS: FAMOTIDINE 20 MG TABLET 40 MG PO (08:56)
[2024-02-19] MEDS: ATROPINE SULFATE 1% OPHTH SOLN 5 ML BOTTLE 1 DROP EACH EYE (08:58)
[2024-02-19] MEDS: DICLOFENAC SODIUM 1% 100 GM GEL (*BKC) 1 APPLIC TOPICAL ×2 (08:58→12:30)
[2024-02-19] MEDS: FLUTICASONE PROPIONATE 0.05% NA SPR 16 GM BTL (*BKC) 2 SPRAY NASAL (08:59)
[2024-02-19] MEDS: POTASSIUM CHLORIDE 20 MEQ ER TABLET 40 MEQ PO ×2 (09:00→12:29)
--- NOTE | 2024-02-19 12:40 | PM.DS ---
DS: Admitting Diagnosis Discharge Date 02/19/24 Admitting Diagnosis Syncope, fall, UTI DS: Discharge Diagnosis Discharge Diagnosis (1) Syncope: Code(s): R55 - Syncope and collapse Status: Acute (2) Parkinsons disease: Code(s): G20 - Parkinson's disease Status: Chronic (3) Urinary tract infection: Code(s): N39.0 - Urinary tract infection, site not specified Status: Acute Plan # syncope - patient has had recurrent falls, unclear etiology. No reoccurrence while in the hospital - echocardiogram 02/17: Echo shows EF 60 67%, grade 1 diastolic dysfunction - monitor on telemetry, likely sending home with med Holter monitor - checking orthostatic vitals # UTI - antibiotic: Switching to Macrobid based on sensitivities (Rx given for 1 week), was given dose of gentamicin, normalization of leukocytosis - for bladder pain on phenazopyridine - urine culture growing Gram-negative zoë (h/o klebisiella) -concern for thrush, will give 1 week of nystatin swish and swallow # chronic conditions - Asthma COPD: Advair - bipolar disorder: on Mirapex, lurasidone, lamictal, p.r.n. Klonopin - hyperlipidemia, h/o TIA: beta-sadie, Zetia, atorvastatin, aspirin - essential hypertension: Metoprolol, lisinopril - Parkinson disease: on pramipexole, carbidopa/levodopa - insomnia: zolpidem - GERD: Protonix, pepcid -chronic hypokalemia: continue with bleeding - peripheral neuropathy: Gabapentin - arthritis: Voltaren gel on joints Diet: heart healthy DVT prophylaxis: lovenox Code status: full code Disposition: [facility] DS: Summary Hospital Course Reason for hospitalization: fall, UTI Hospital Course: Patient is a 68-year-old female with past medical history of type 2 diabetes, hyperlipidemia, essential hypertension, Parkinson's disorder who presents to ED after a fall. Patient has been having issues with chronic cystitis with recurrent infections and these unexplained falls, these syncopal episodes. She had leukocytosis of 15,000 treated with 1 dose of gentamicin and then macrobid. Her urine grew GNR which we will treat with Macrobid 7 days based on her allergy list. She started developing some thrush, we will give nystatin swish and swallow for 7 days. For the syncopal workup echocardiogram showed EF 60-65%, grade 1 diastolic dysfunction. Her orthostatics were negative. No abnormality in telemetry. Ordering Holter monitor on discharge to follow-up for any arrhythmia to explain syncope. Patient did not have any more syncopal episodes during her hospitalization. Patient was admitted from 02/16 to 02/18. At time of discharge patient's labs stable, vitals stable, patient is stable for discharge home to [facility]. Patient to follow-up with her PCP in 1 week. Status at Discharge Cognitive/behavioral status at discharge: baseline Time Spent with Patient Time attestation: Total time spent providing and/or coordinating discharge services: 35 minutes Exam Narrative: - GENERAL: pleasant elder woman in no acute distress - EYES: EOMI. Anicteric. - HENT: Moist mucous membranes. - LUNGS: Clear to auscultation bilaterally, no wheezing, rhonchi, or rales. - CARDIOVASCULAR: Regular rate and rhythm. No murmur. No JVD. - ABDOMEN: Soft, non-tender and non-distended. No palpable masses. - EXTREMITIES: No edema. Peripheral pulses 2+. Non-tender. - NEUROLOGIC: No focal neurological deficits. CN II-XII grossly intact. - PSYCHIATRIC: Awake, Alert and oriented x 3. Appropriate mood and affect. - SKIN: No rashes or lesions. Warm. - LYMPH: No cervical lymphadenopathy. DS: Data Data Completed and Pending Labs on day of discharge: Labs from last 24 hours 02/19/24 05:29 WBC 9.4 RBC 4.22 Hgb 12.1 Hct 38.0 MCV 90.0 MCH 28.7 MCHC 31.8 L RDW 15.2 H Plt Count 240 MPV 9.3 Immature Gran % (Auto) 0.4 Neut % (Auto) 61.8 Lymph % (Auto) 28.0 [place] % (Auto) 5.9 Eos % (Auto) 3.4 Baso % (Auto
[2024-02-19 14:00] VITALS: BP 98/54; PULSE 91; RESP 18; TEMP 36.4; O2SAT 96
[2024-02-20 11:29] LABS: Hemoglobin A1C 6.2 % (<5.7)
--- NOTE | 2024-02-29 16:55 | WPDHOLTEREM ---
Holter/Event Monitor Holter/Event Monitor Date of procedure: 02/19/24 Holter/Event Procedure: 48 Hr Holter Monitor Indications: Syncope Conclusion: 1. 48 hour holter monitor on 02/19/24. 2. Underlying rhythm is sinus rhythm. HR range 59-129 bpm; average HR 77 bpm. 3. There are 46 premature supraventricular complexes and 6 supraventricular couplets. No supraventricular tachycardia. 4. There are 201 premature ventricular complexes. No ventricular tachycardia. 5. No sinoatrial or atrioventricular blocks. No significant pauses greater than 2 seconds. 6. No symptoms available for correlation.
== END 2024-02-19 14:08 ==
LOC: ANHED 09:32 → ANH3MEDSUR 02-18 14:16
PROVIDERS: Student in an Organized Health Care Education/Training Program; Admitting Provider Internal Medicine; Emergency Provider Emergency Medicine; Visit Provider Student in an Organized Health Care Education/Training Program
DX: R55 Syncope and collapse (principal); N30.01 Acute cystitis with hematuria; W18.39XA Other fall on same level, initial encounter; E87.6 Hypokalemia; G47.00 Insomnia, unspecified; I10 Essential (primary) hypertension; E78.5 Hyperlipidemia, unspecified; G20.A1 Parkinson's disease without dyskinesia, without mention of fluctuations; E11.42 Type 2 diabetes mellitus with diabetic polyneuropathy; J44.9 Chronic obstructive pulmonary disease, unspecified; F41.8 Other specified anxiety disorders; F31.9 Bipolar disorder, unspecified; K21.9 Gastro-esophageal reflux disease without esophagitis; H40.9 Unspecified glaucoma; Z86.73 Personal history of transient ischemic attack (TIA), and cerebral infarction without residual deficits; Z79.51 Long term (current) use of inhaled steroids; Z79.82 Long term (current) use of aspirin
CPT/HCPCS: 36415; 70450; 71046; 72170; 80048; 80053; 80170; 81001; 83036; 83735; 84484; 85025; 87077; 87086; 87088; 87186; 93005; 93225; 93226; 93306; 94640; 96372; 96374; 97161; 97165; 99285; A9270; G0378; J1580; J1650

== ENCOUNTER 2024-03-20 18:57 | Observation (INO) | payer MEDICARE, MEDICAID, SELFPAY ==
[2024-03-20] VITALS (8 sets, daily range): BP systolic 116–171; BP diastolic 55–96; PULSE 67–117; RESP 15–24; TEMP 36.4–36.9; O2SAT 97–100
--- NOTE | ~2024-03-20 | MR_ITS ---
EXAMINATION: MR brain/brain stem wo con DATE: 03/24/2024 11:17 INDICATION: Altered mental status. TECHNIQUE: Magnetic resonance imaging (MRI) of the brain and brainstem was performed without intraven ous contrast. COMPARISON: Head CT 03/20/2024 FINDINGS: There is no intracranial hemorrhage, acute infarction, or abnormal intracranial mass lesion . There are scattered areas of nonspecific increased T2-weighted signal intensity in the cerebral whi te matter. The ventricles are normal in size. There is mucosal thickening in the paranasal sinuses. T here are likely changes of ocular lens replacement surgeries. The mastoid air cells are normal. IMPRESSION: 1. Moderate nonspecific cerebral white matter disease, which likely represents chronic small vessel i schemic disease. Reviewed, dictated and finalized at location A. IMPRESSION: 1. Moderate nonspecific cerebral white matter disease, which likely represents chronic small vessel ischemic disease.
--- NOTE | ~2024-03-20 | XR_ITS ---
XR chest 1V portable Ordering provider: Damian Ferrara MD History: 68 years Female with . Altered mental status . Comparison: February 17, 2024 FINDINGS: MEDIASTINUM: The cardiac silhouette is not enlarged. LUNGS: No infiltrates, effusions or pneumothorax. OTHER: No free air under the diaphragm. IMPRESSION: No acute cardiopulmonary pathology. Reviewed, dictated and finalized at location A.
--- NOTE | ~2024-03-20 | CT_ITS ---
CT brain wo con Ordering provider: Damian Ferrara MD History: 68 years Female with . Altered mental status . Comparison: February 17, 2024. Technique: CT of the head without contrast. Radiation reduction technique utilized. DLP is 681 mGy-cm. FINDINGS: BRAIN PARENCHYMA AND CSF SPACES: Mild leukoaraiosis and diffuse cortical atrophy. Mild atheromatous d isease. No midline shift, mass effect or hemorrhage. The brain parenchyma and CSF spaces are otherwi se normal. VISUALIZED PARANASAL SINUSES: Bilateral maxillary and frontal sinus disease. Bilateral ethmoid and sp henoid sinus disease. MASTOIDS: Well aerated. BONES: The bones appear intact. SOFT TISSUES: Visualized nasopharynx is normal. Superficial soft tissues are normal. IMPRESSION: No acute intracranial findings. Pansinusitis. Reviewed, dictated and finalized at location A.
--- NOTE | 2024-03-20 19:18 | ED.AMS ---
HPI - Altered Mental Status General Chief Complaint: Altered Mental Status Stated Complaint: AMS, COVID+ Time Seen by Provider: 03/20/24 18:57 Source: patient and EMS Mode of arrival: EMS Limitations: altered mental status History of Present Illness HPI narrative: this is a 68-year-old female, with history of bipolar disorder Parkinson's, brought in by EMS from her assisted living facility for altered mental status. The patient is on her last day: Isolation and has apparently been at her baseline at A&O x4, when she was found wandering the halls today appearing confused. The patient typically uses a walker but today was not. She was oriented to self without other complaints. EMS is familiar with the patient and notes this appears unusual for her. Stroke evaluation in the field was not concerning for focal deficit. vital signs within normal limits with fingerstick glucose of 121. The patient has no specific complaints though is also confused. Related Data Home Medications Medication Instructions Recorded Confirmed atorvastatin 80 mg tablet 80 mg PO DAILY 08/14/19 02/17/24 clonazepam 0.5 mg tablet 0.5 mg PO BID 08/14/19 02/17/24 ezetimibe 10 mg tablet 10 mg PO DAILY 08/14/19 02/17/24 lamotrigine 100 mg tablet 100 mg PO BID 08/14/19 02/17/24 latanoprost 0.005 % eye drops 1 drp EACH EYE HS 01/07/20 02/17/24 acetaminophen 325 mg tablet 650 mg PO QID PRN Pain 03/04/22 02/17/24 diclofenac sodium 1 % topical gel 1 ea topical QID 03/04/22 02/17/24 famotidine 40 mg tablet 40 mg PO DAILY 03/04/22 02/17/24 fluticasone 100 mcg-salmeterol 50 1 inh inhalation Q12H 03/04/22 02/17/24 mcg/dose blistr powdr for inhalation (Advair Diskus) fluticasone propionate 50 2 spray intranasal DAILY 03/04/22 02/17/24 mcg/actuation nasal spray,suspension multivitamin with minerals 1 tablet PO DAILY 03/04/22 02/17/24 aspirin 81 mg chewable tablet 81 mg DIRECTED 05/11/23 02/17/24 albuterol sulfate 90 mcg/actuation 2 puff inhalation QID PRN Wheezing 02/17/24 02/17/24 aerosol inhaler (Ventolin HFA) atropine 1 % eye drops 1 drp EACH EYE BID 02/17/24 02/17/24 calcium carbonate 500 mg PO Q4-6H PRN Heartburn 02/17/24 02/17/24 carbidopa 25 mg-levodopa 100 mg 1 tablet PO TID 02/17/24 02/17/24 tablet cholecalciferol (vitamin D3) 25 25 mcg PO DAILY 02/17/24 02/17/24 mcg (1,000 unit) tablet (Vitamin D3) gabapentin 400 mg capsule 400 mg PO TID 02/17/24 02/17/24 lisinopril 20 mg tablet 20 mg PO DAILY 02/17/24 02/17/24 lurasidone 60 mg tablet 60 mg PO QAM 02/17/24 02/17/24 metoprolol succinate 100 mg 100 mg PO DAILY 02/17/24 02/17/24 tablet,extended release 24 hr omeprazole 20 mg capsule,delayed 20 mg PO DAILY 02/17/24 02/17/24 release phenazopyridine 200 mg tablet 200 mg PO TID PRN Pain, Mild 02/17/24 02/17/24 pimavanserin 34 mg capsule 34 mg PO DAILY 02/17/24 02/17/24 (Nuplazid) potassium chloride 20 mEq 20 meq PO DAILY 02/17/24 02/17/24 tablet,extended release pramipexole 1 mg tablet 1 mg PO TID 02/17/24 02/17/24 zolpidem 12.5 mg tablet,extended 12.5 mg PO HS PRN Sleep 02/17/24 02/17/24 release,multiphase Allergies Allergy/AdvReac Type Severity Reaction Status Date / Time ciprofloxacin Allergy Severe SEVERE Verified 02/17/24 13:42 MIGRAINES Penicillins Allergy Severe ANAPHYLAXIS Verified 02/17/24 13:42 Quinolones Allergy Severe ANAPHYLAXIS Verified 02/17/24 13:42 Sulfa (Sulfonamide Allergy Severe HIVES Verified 02/17/24 13:42 Antibiotics) adhesive tape Allergy Rash Verified 02/17/24 13:42 cephalexin [From Keflex] Allergy Anaphylaxis Verified 02/17/24 13:42 chlorthalidone Allergy Rash Verified 02/17/24 13:42 fentanyl Allergy Anaphylaxis Verified 02/17/24 13:42 ibuprofen Allergy Rash Verified 02/17/24 13:42 levofloxacin [From Levaquin] Allergy Rash Verified 02/17/24 13:42 vancomycin Allergy Gastrointestinal Verified 02/17/24 13:42 Upset morphine AdvReac Mild RASH Verified 02/17/24 13:42 Review of Systems Review o
[2024-03-20 19:37] LABS: Fractional Inspired Oxygen 21 %; HCO3 VBG 29.1 mEq/l (24.0-30.0)
[2024-03-20 19:38] LABS: Basophils Absolute Auto 0.1 K/mm3 (0.0-0.1); Basophils Percent Auto 0.4 % (0.2-1.2); Eosinophils Absolute Auto 0.2 K/mm3 (0-0.3); Eosinophils Percent Auto 1.8 % (0-4.4); Hematocrit 38.8 % (37.0-47.0); Hemoglobin 12.8 g/dL (12.0-15.0); Immature Granulocyte Absolute 0.05 K/mm3 (0.00-0.031); Immature Granulocyte Percent A 0.4 % (0-0.5); Lymphocytes Absolute Auto 2.66 K/mm3 (0.9-3.2); Mean Corpuscular Volume 87.8 fl (80-100); Mean Platelet Volume 9.1 fl (7.4-10.4); Monocytes Absolute Auto 0.7 K/mm3 (0.1-0.6); Monocytes Percent Auto 5.9 % (2.6-8.5); Neutrophils Absolute Auto 8.4 K/mm3 (1.3-6.7); Neutrophils Percent Auto 69.5 % (45.5-73.1); Platelet Count Result 241 k/mm3 (150-375); Red Blood Count 4.42 M/mm3 (4.2-5.4); Red Cell Distribution Width 15.3 % (11.5-14.5); White Blood Count 12.1 K/mm3 (4.5-10.0); pH VBG 7.429 (7.300-7.400)
[2024-03-20 19:39] LABS: PO2 VBG < 27.0 mmHg (35.0-45.0)
[2024-03-20 19:53] LABS: Lactic Acid Reflex 1.1 mmol/L (0.7-2.0)
[2024-03-20 19:54] LABS: Acetaminophen < 10 ug/mL (10-30); Ammonia < 9 umol/L (9-30); Ethanol < 10 mg/dL (<10); Salicylate < 1.0 mg/dL (2-20)
[2024-03-20 20:00] LABS: Alanine Aminotransferase 7 U/L (6-35); Albumin Level 4.5 g/dL (3.5-5.1); Alkaline Phosphatase 76 U/L (38-126); Anion Gap 12 mmol/L (4-12); Aspartate Amino Transferase 28 U/L (14-36); Blood Urea Nitrogen 12 mg/dL (7-17); Calcium 9.6 mg/dL (8.4-10.2); Carbon Dioxide 32 mmol/L (22-30); Chloride 98 mmol/L (98-107); Estimated CRCL calculation 38 ml/min; Estimated Glomerular Filt Rate 50; Glucose 121 mg/dL (65-110); Potassium 2.8 mmol/L (3.4-5.0); Sodium 142 mmol/L (137-145)
[2024-03-20 20:11] LABS: Amphetamine Screen Urine Negative (Negative); Barbiturate Screen Urine Negative (Negative); Benzodiazepines Screen Urine Negative (Negative); Cannabinoid Screen Urine Negative (Negative); Cocaine Screen Urine Negative (Negative); Methadone Screen Urine Negative (Negative); Opiate Screen Urine Negative (Negative); Phencyclidine Screen Urine Negative (Negative)
[2024-03-20 20:14] LABS: Influenza A QL RT-PCR Negative (Negative); Influenza B QL RT-PCR Negative (Negative); RSV RNA, RT-PCR Negative (Negative); SARS-CoV-2 RNA PCR Positive (Negative)
[2024-03-20 20:22] LABS: Add Urine Microscopic? YES; Appearance Urine Turbid (Clear); Bacteria Urine None Seen /hpf; Bilirubin Urine Negative (Negative); Blood Urine 2+ (Negative); Color Urine Dark Yellow (Yellow); Glucose Urine UA Negative (Negative); Ketones Urine Trace mg/dL (Negative); Leukocyte Esterase Ur 2+ LEU/UL (Negative); Need Manual Microscopic Reviewed; Nitrate Urine Negative (Negative); Protein Urine 3+ mg/dL (Negative); RBC Urine 51-100 /hpf (0-2); Specific Grav Ur 1.024 (1.001-1.035); Squamous Epithelial Cell Urine None Seen /hpf (Few); WBC Urine >100 /hpf (0-3); pH Urine 5.5 (5.0-9.0)
[2024-03-20] MEDS: SODIUM CHLORIDE 0.9% IV 1,000 ML 999 ML IV CONT (20:22)
[2024-03-20] MEDS: KCL 40 MEQ/WATER 100 ML 100 ML 25 ML IVPB (20:22)
--- NOTE | 2024-03-20 20:46 | PM.IMHP ---
H&P: HPI History of Present Illness Date/Time: 03/20/24 20:46 Chief Complaint: AMS Narrative: This is a 68-year-old female past medical history significant for hypertension, Parkinson's disease, T2 dm asthma, bipolar disorder, COPD,was brought to the emergency room for evaluation due to altered mental status. Patient is unable to give any history she is confused. Preliminary workup was significant for urinalysis with numerous WBCs present, patient tested positive for COVID. Patient has been admitted for further evaluation management and treatment. Technique: CT of the head without contrast. Radiation reduction technique utilized. DLP is 681 mGy-cm. FINDINGS: BRAIN PARENCHYMA AND CSF SPACES: Mild leukoaraiosis and diffuse cortical atrophy. Mild atheromatous disease. No midline shift, mass effect or hemorrhage. The brain parenchyma and CSF spaces are otherwise normal. VISUALIZED PARANASAL SINUSES: Bilateral maxillary and frontal sinus disease. Bilateral ethmoid and sphenoid sinus disease. MASTOIDS: Well aerated. BONES: The bones appear intact. SOFT TISSUES: Visualized nasopharynx is normal. Superficial soft tissues are normal. IMPRESSION: No acute intracranial findings. Pansinusitis. XR chest 1V portable Ordering provider: Damian Ferrara MD History: 68 years Female with . Altered mental status . Comparison: February 17, 2024 FINDINGS: MEDIASTINUM: The cardiac silhouette is not enlarged. LUNGS: No infiltrates, effusions or pneumothorax. OTHER: No free air under the diaphragm. IMPRESSION: No acute cardiopulmonary pathology. Review of Systems Review of Systems: ROS unobtainable: Yes unobtainable due to mental status PMFSH Past Medical History Medical History Anxiety and depression Asthma Atrial flutter Bipolar disorder Carotid artery stenosis COPD (chronic obstructive pulmonary disease) Diabetes GERD (gastroesophageal reflux disease) Glaucoma Hyperlipidemia Hypertension Parkinsons disease TIA (transient ischemic attack) Family History Family History Mother Parkinson's disease Father Brain aneurysm Social History Social History Smoking packs per day: 1 Smoking cigarettes per day: 20.0 Years smoked: 30 Smoking pack-years: 30.00 Smoking status: Never smoker Alcohol intake: never Substance use: never Do You Feel Safe in your Home?: Yes Lack of Transportation: No Lack of Food: Never True Current Housing: I Have Housing Concerned About Future Housing: No Difficulty Paying Gas/Electric Bills: No Difficulty Paying for Meds: No Currently Unemployed: No Education: Decline to Answer Difficulty w/ Childcare or Family Care: No Gender identity (if verbalized by the patient): Female Spiritual care concerns: No Meds Home Medications and Allergies Home Medications Medication Instructions Recorded Confirmed Type atorvastatin 80 mg tablet 80 mg PO DAILY 08/14/19 03/20/24 History clonazepam 0.5 mg tablet 0.5 mg PO BID 08/14/19 03/20/24 History ezetimibe 10 mg tablet 10 mg PO DAILY 08/14/19 03/20/24 History lamotrigine 100 mg tablet 100 mg PO DAILY 08/14/19 03/20/24 History latanoprost 0.005 % eye drops 1 drp RIGHT EYE DAILY 01/07/20 03/20/24 History acetaminophen 325 mg tablet 650 mg PO QID PRN Pain 03/04/22 03/20/24 History diclofenac sodium 1 % topical gel 1 ea topical QID 03/04/22 03/20/24 History famotidine 40 mg tablet 40 mg PO DAILY 03/04/22 03/20/24 History multivitamin with minerals 1 tablet PO DAILY 03/04/22 03/20/24 History albuterol sulfate 90 mcg/actuation 2 puff inhalation Q4H PRN Wheezing 02/17/24 03/20/24 History aerosol inhaler (Ventolin HFA) atropine 1 % eye drops 1 drp EACH EYE BID 02/17/24 03/20/24 History calcium carbonate 500 mg PO Q4-6H PRN
[2024-03-20] MEDS: MEROPENEM 1 GM/NS 100 ML 1 GM/100 ML BAG IVPB (21:20)
--- NOTE | 2024-03-20 23:02 | ADMGEN ---
This patient, Ivonne Santos, was admitted to 3 Med Surg Room 301-01. Patient/family oriented to hospital policies and general routines including ID bracelet, bed and alarms, visiting hours, pain management, procedures, bathroom and other care routines, personal items, smoking policy, room service/diet, and visiting hours. Information on how to activate the Rapid Response Team has been discussed. Patient/Family are encouraged to report perceived risks to care and to ask questions if they do not understand what they are told or what they should do.
[2024-03-20 23:56] LABS: Glucose Point of Care 84 mg/dl (65-105)
[2024-03-21] VITALS (10 sets, daily range): BP systolic 129–165; BP diastolic 59–82; PULSE 60–81; RESP 16–18; TEMP 36.7–36.9; O2SAT 97–99
[2024-03-21] MEDS: DEXTROSE 5%/0.45% SOD CHL 1,000 ML 65 ML IV CONT (00:42)
[2024-03-21 05:40] LABS: Basophils Absolute Auto 0.1 K/mm3 (0.0-0.1); Basophils Percent Auto 0.7 % (0.2-1.2); Eosinophils Absolute Auto 0.2 K/mm3 (0-0.3); Eosinophils Percent Auto 2.3 % (0-4.4); Hematocrit 37.8 % (37.0-47.0); Immature Granulocyte Absolute 0.02 K/mm3 (0.00-0.031); Immature Granulocyte Percent A 0.2 % (0-0.5); Lymphocytes Absolute Auto 2.21 K/mm3 (0.9-3.2); Lymphocytes Percent Auto 24.7 % (18.3-44.2); Mean Corpuscular HGB Conc 31.7 g/dl (32-36); Mean Corpuscular Hemoglobin 28.4 pg (26-34); Mean Corpuscular Volume 89.6 fl (80-100); Mean Platelet Volume 9.3 fl (7.4-10.4); Monocytes Absolute Auto 0.6 K/mm3 (0.1-0.6); Monocytes Percent Auto 6.5 % (2.6-8.5); Neutrophils Absolute Auto 5.9 K/mm3 (1.3-6.7); Neutrophils Percent Auto 65.6 % (45.5-73.1); Platelet Count Result 215 k/mm3 (150-375); Red Blood Count 4.22 M/mm3 (4.2-5.4); Red Cell Distribution Width 15.1 % (11.5-14.5)
[2024-03-21 05:53] LABS: Anion Gap 9 mmol/L (4-12); Blood Urea Nitrogen 8 mg/dL (7-17); Calcium 8.8 mg/dL (8.4-10.2); Carbon Dioxide 28 mmol/L (22-30); Chloride 103 mmol/L (98-107); Estimated CRCL calculation 51 ml/min; Estimated Glomerular Filt Rate > 60; Glucose 125 mg/dL (65-110); Potassium 2.9 mmol/L (3.4-5.0); Sodium 140 mmol/L (137-145)
[2024-03-21] MEDS: lisinopriL 20 MG TABLET PO (08:02)
[2024-03-21] MEDS: FAMOTIDINE 20 MG TABLET 40 MG PO (08:02)
[2024-03-21] MEDS: CARBIDOPA/LEVODOPA 25/100 MG TABLET 1 TABLET PO ×3 (08:02→15:13)
--- NOTE | 2024-03-21 08:02 | PM.IMPN ---
Progress Note: A&P Assessment and Plan (1) Altered mental status: Qualifiers: Altered mental status type: unspecified Qualified Code(s): R41.82 - Altered mental status, unspecified Code(s): R41.82 - Altered mental status, unspecified Status: Acute Assessment and Plan: AOx1 at time of assessment. Per chart review patient is baseline AOx4?? Likely due to patients UTI. - Head CT: No acute intracranial findings. Pansinusitis. - Chest XR: No acute cardiopulmonary pathology. - Toxicology negative - Covid positive, last day of isolation - Flu/RSV negative - Monitor (2) UTI (urinary tract infection): Code(s): N39.0 - Urinary tract infection, site not specified Status: Acute Assessment and Plan: - UA: turbid appearance with 3+ protein, trace ketones, 2+ blood, 2+ leukocytes, 51-100 RBC, >100 WBC - UC obtained on 03/20: pending - previous micro reviewed 02/16: citrobacter amalonaticus with ESBL resistance 09/01: klebsiella oxytoca resistant to cefazolin 05/11/23: enterococcus species pansensitive - started on meropenem 03/20 (3) Hypokalemia: Code(s): E87.6 - Hypokalemia Status: Acute Assessment and Plan: Potassium 2.8 on admission. - K 2.9 on am labs - Repleted - Continue tele monitoring - Continue to monitor (4) Diabetes mellitus: Code(s): E11.9 - Type 2 diabetes mellitus without complications Status: Chronic Assessment and Plan: - hypoglycemia protocol - POC blood glucose ACHS - home medication - lantus 28 units - correct regimen ordered - continue home regimen - A1C 6.2 on 02/18/24 (5) Hypertension: Qualifiers: Hypertension type: primary hypertension Qualified Code(s): I10 - Essential (primary) hypertension Code(s): I10 - Essential (primary) hypertension Status: Chronic Assessment and Plan: Chronic, continue home medications. - amlodipine 10 mg daily - lisinopril 20 mg daily - metoprolol 100 mg daily - monitor (6) Parkinsons disease: Code(s): G20 - Parkinson's disease Status: Chronic Assessment and Plan: - continue home medications: Carbidopa-levodopa 25-100 t.i.d. - fall precautions Time Spent With Patient Time with patient: 25 - 35 minutes Subjective Date/time seen: 03/21/24 08:02 Interval history: 68 y/o female with past medical history of DM, HLD, HTN, COPD and bipolar and Parkinson's presents to the hospital for altered mental status. Patient is pleasant lying comfortably in bed. She is currently AOx1 (person). Patient continues to endorse burning sensation with urination, increased frequency and trickling of bladder. She denies hematuria. She denies chest pain, shortness of breath, nausea/vomiting and changes in bowel. Patients urine culture is pending. She remains on meropenem at this time as she has had ESBL resistance in the past. Review of Systems Review of Systems: All systems reviewed & are unremarkable except as noted in HPI and below Exam Narrative: AF HR 64 RR 16 SpO2 97 BP 129/59 General: female in no acute respiratory distress who is nontoxic appearing, lying semi recumbent in bed. HEENT: Normocephalic. Atraumatic. Pupils equal round reactive to light. Extraocular movement intact. Sclera clear and anicteric. No facial asymmetry. Chest: Lungs are clear to auscultation bilaterally. No wheezes or crackles. CV: Heart was regular rate and rhythm. S1-S2. No murmurs, gallops, or rubs. Abd: Abdomen was soft. Nontender. Nondistended. Postive bowel sounds. No organomegaly or masses. Ext: No clubbing, cyanosis, or edema. 2+ DP pulses bilaterally. Upper extremity tremor. Neuro: Patient is alert and oriented x1. Cranial nerves 2-12 are intact. Speech is clear. Psych: Normal mood and affect. Patient is pleasant and cooperative. Objective Data Vital Signs Vital Signs: Vital Signs - 24 hr 03/20/24 19:03 03/20/24 19:33 03/20/24 19:42 Temperatur
[2024-03-21] MEDS: amLODIPine BESYLATE 10 MG TABLET PO (08:03)
[2024-03-21] MEDS: METOPROLOL SUCCINATE EXT REL 100 MG TABCR PO (08:03)
[2024-03-21] MEDS: GABAPENTIN 400 MG CAPSULE PO ×3 (08:03→15:13)
[2024-03-21] MEDS: lamoTRIgine 100 MG TABLET PO (08:05)
[2024-03-21] MEDS: LATANOPROST 0.005% OP SOLN 2.5 ML BTL 1 DROP RIGHT EYE (08:29)
[2024-03-21] MEDS: PRAMIPEXOLE 1 MG TABLET PO ×3 (08:29→15:13)
[2024-03-21] MEDS: ATROPINE SULFATE 1% OPHTH SOLN 5 ML BOTTLE 1 DROP EACH EYE (08:29)
[2024-03-21] MEDS: ATORVASTATIN 40 MG TABLET 80 MG PO (08:29)
[2024-03-21] MEDS: MEROPENEM 1 GM/NS 100 ML 1 GM/100 ML BAG IVPB ×3 (08:31→21:27)
[2024-03-21] MEDS: POTASSIUM CHLORIDE INJ 40 MEQ in SODIUM CHLORIDE 0.9% IV 500 ML 130 MEQ IVPB (10:06)
[2024-03-21] MEDS: POTASSIUM CHLORIDE 20 MEQ ER TABLET 40 MEQ PO (10:06)
[2024-03-21 20:05] LABS: Glucose Point of Care 130 mg/dl (65-105)
[2024-03-21] MEDS: lamoTRIgine 100 MG TABLET 200 MG PO (21:27)
[2024-03-21] MEDS: INSULIN GLARGINE (*BKC) 100 UNITS/ML 28 UNITS SUB-Q (21:28)
[2024-03-22] VITALS (11 sets, daily range): BP systolic 97–156; BP diastolic 66–79; PULSE 55–78; RESP 18–20; TEMP 36.8–37.1; O2SAT 98–100
[2024-03-22 06:19] LABS: Basophils Percent Auto 0.4 % (0.2-1.2); Eosinophils Absolute Auto 0.2 K/mm3 (0-0.3); Eosinophils Percent Auto 2.3 % (0-4.4); Hematocrit 38.1 % (37.0-47.0); Hemoglobin 12.3 g/dL (12.0-15.0); Immature Granulocyte Absolute 0.04 K/mm3 (0.00-0.031); Immature Granulocyte Percent A 0.4 % (0-0.5); Lymphocytes Absolute Auto 2.56 K/mm3 (0.9-3.2); Lymphocytes Percent Auto 28.1 % (18.3-44.2); Mean Corpuscular HGB Conc 32.3 g/dl (32-36); Mean Corpuscular Hemoglobin 28.9 pg (26-34); Mean Corpuscular Volume 89.6 fl (80-100); Mean Platelet Volume 9.1 fl (7.4-10.4); Monocytes Absolute Auto 0.6 K/mm3 (0.1-0.6); Neutrophils Absolute Auto 5.7 K/mm3 (1.3-6.7); Neutrophils Percent Auto 62.8 % (45.5-73.1); Platelet Count Result 239 k/mm3 (150-375); Red Blood Count 4.25 M/mm3 (4.2-5.4); Red Cell Distribution Width 15.2 % (11.5-14.5); White Blood Count 9.1 K/mm3 (4.5-10.0)
[2024-03-22 06:35] LABS: Anion Gap 11 mmol/L (4-12); Bilirubin,Total 1.1 mg/dL (0.2-1.3); Blood Urea Nitrogen 7 mg/dL (7-17); Carbon Dioxide 28 mmol/L (22-30); Chloride 102 mmol/L (98-107); Estimated CRCL calculation 51 ml/min; Estimated Glomerular Filt Rate > 60; Glucose 94 mg/dL (65-110); Potassium 3.8 mmol/L (3.4-5.0); Sodium 141 mmol/L (137-145)
[2024-03-22 06:36] LABS: Alanine Aminotransferase 12 U/L (6-35); Alkaline Phosphatase 61 U/L (38-126); Aspartate Amino Transferase 29 U/L (14-36)
[2024-03-22] MEDS: MEROPENEM 1 GM/NS 100 ML 1 GM/100 ML BAG IVPB (06:58)
--- NOTE | 2024-03-22 07:54 | PM.IMPN ---
Progress Note: A&P Assessment and Plan (1) Altered mental status: Qualifiers: Altered mental status type: unspecified Qualified Code(s): R41.82 - Altered mental status, unspecified Code(s): R41.82 - Altered mental status, unspecified Status: Acute Assessment and Plan: AOx1 at time of assessment. Per chart review patient is baseline AOx4?? - Head CT: No acute intracranial findings. Pansinusitis. - Chest XR: No acute cardiopulmonary pathology. - UA: turbid appearance with 3+ protein, trace ketones, 2+ blood, 2+ leukocytes, 51-100 RBC, >100 WBC - UC obtained on 03/20:negative - Blood cultures obtained on 03/22: pending - Toxicology negative - Covid positive, last day of isolation - LFTs WNL - Flu/RSV negative - Monitor (2) COVID-19: Code(s): U07.1 - COVID-19 Status: Acute Assessment and Plan: Covid positive on PCR. Per [place] this will be patients 10th day since positive test. (3) Sinusitis: Code(s): J32.9 - Chronic sinusitis, unspecified Status: Acute Assessment and Plan: CT head: No acute intracranial findings. Pansinusitis. - Doxycycline started 03/22 - Monitor (4) UTI (urinary tract infection): Code(s): N39.0 - Urinary tract infection, site not specified Status: Acute Assessment and Plan: - UA: turbid appearance with 3+ protein, trace ketones, 2+ blood, 2+ leukocytes, 51-100 RBC, >100 WBC - UC obtained on 03/20: negative - previous micro reviewed 02/16: citrobacter amalonaticus with ESBL resistance 09/01: klebsiella oxytoca resistant to cefazolin 05/11/23: enterococcus species pansensitive - started on meropenem 03/20, discontinued on 03/22 (5) Hypokalemia: Code(s): E87.6 - Hypokalemia Status: Acute Assessment and Plan: Potassium 2.8 on admission. - K 3.8 on am labs - Continue tele monitoring - Continue to monitor (6) Diabetes mellitus: Code(s): E11.9 - Type 2 diabetes mellitus without complications Status: Chronic Assessment and Plan: - hypoglycemia protocol - POC blood glucose ACHS - home medication - lantus 28 units - correct regimen ordered - continue home regimen - A1C 6.2 on 02/18/24 (7) Parkinsons disease: Code(s): G20 - Parkinson's disease Status: Chronic Assessment and Plan: - continue home medications: Carbidopa-levodopa 25-100 t.i.d. - fall precautions Subjective Date/time seen: 03/22/24 07:54 Interval history: 68 y/o female with past medical history of DM, HLD, HTN, COPD and bipolar and Parkinson's presents to the hospital for altered mental status. Patient is pleasant lying comfortably in bed. She remains AOx1 on assessment. Patient has no complaints at this time, denying chest pain, shortness of breath, nausea/vomiting, abdominal pain and changes in bowel/bladder. Patients UTI was negative. Her head CT did show pansinusitis so will transition antibiotics to doxy to cover this. Was planning to obtain an MRI to further evaluate, however MRI unavailable till sunday. Review of Systems Review of Systems: All systems reviewed & are unremarkable except as noted in HPI and below Exam Narrative: AF HR 71 RR 20 SpO2 100 BP 97/70 General: female in no acute respiratory distress who is nontoxic appearing, lying semi recumbent in bed. HEENT: Normocephalic. Atraumatic. Pupils equal round reactive to light. Extraocular movement intact. Sclera clear and anicteric. No facial asymmetry. Chest: Lungs are clear to auscultation bilaterally. No wheezes or crackles. CV: Heart was regular rate and rhythm. S1-S2. No murmurs, gallops, or rubs. Abd: Abdomen was soft. Nontender. Nondistended. Positive bowel sounds. No organomegaly or masses. Ext: No clubbing, cyanosis, or edema. 2+ DP pulses bilaterally. Upper extremity tremor. Neuro: Patient is alert and oriented x1. Cranial nerves 2-12 are intact. Speech is clear. Psych: Normal mood and affect. Patient is ple
[2024-03-22 08:00] LABS: Glucose Point of Care 110 mg/dl (65-105)
[2024-03-22] MEDS: DEXTROSE 5%/0.45% SOD CHL 1,000 ML 65 ML IV CONT (08:58)
[2024-03-22] MEDS: FAMOTIDINE 20 MG TABLET 40 MG PO (08:59)
[2024-03-22] MEDS: METOPROLOL SUCCINATE EXT REL 100 MG TABCR PO (08:59)
[2024-03-22] MEDS: ATORVASTATIN 40 MG TABLET 80 MG PO (08:59)
[2024-03-22] MEDS: DOXYCYCLINE HYCLATE 100 MG TABLET PO ×2 (08:59→20:37)
[2024-03-22] MEDS: CARBIDOPA/LEVODOPA 25/100 MG TABLET 1 TABLET PO ×3 (09:00→16:22)
[2024-03-22] MEDS: PRAMIPEXOLE 1 MG TABLET PO ×3 (09:00→16:22)
[2024-03-22] MEDS: GABAPENTIN 400 MG CAPSULE PO ×3 (09:00→16:22)
[2024-03-22] MEDS: amLODIPine BESYLATE 10 MG TABLET PO (09:00)
[2024-03-22] MEDS: lisinopriL 20 MG TABLET PO (09:00)
[2024-03-22] MEDS: lamoTRIgine 100 MG TABLET PO (09:01)
[2024-03-22] MEDS: LATANOPROST 0.005% OP SOLN 2.5 ML BTL 1 DROP RIGHT EYE (09:16)
[2024-03-22] MEDS: ATROPINE SULFATE 1% OPHTH SOLN 5 ML BOTTLE 1 DROP EACH EYE ×2 (09:16→16:22)
[2024-03-22] MEDS: ENOXAPARIN 40 MG/0.4 ML SYRINGE SUB-Q (09:17)
[2024-03-22 11:56] LABS: Glucose Point of Care 128 mg/dl (65-105)
[2024-03-22 16:51] LABS: Glucose Point of Care 139 mg/dl (65-105)
[2024-03-22] MEDS: lamoTRIgine 100 MG TABLET 200 MG PO (20:37)
[2024-03-22] MEDS: ACETAMINOPHEN 325 MG TABLET 650 MG PO (20:37)
[2024-03-22 20:47] LABS: Glucose Point of Care 96 mg/dl (65-105)
[2024-03-23] VITALS (9 sets, daily range): BP systolic 146–166; BP diastolic 64–78; PULSE 55–88; RESP 16–18; TEMP 36.1–37.1; O2SAT 99–100
[2024-03-23] MEDS: DEXTROSE 5%/0.45% SOD CHL 1,000 ML 65 ML IV CONT ×2 (05:51→20:42)
[2024-03-23 06:15] LABS: Basophils Absolute Auto 0.1 K/mm3 (0.0-0.1); Basophils Percent Auto 0.5 % (0.2-1.2); Eosinophils Absolute Auto 0.2 K/mm3 (0-0.3); Eosinophils Percent Auto 2.4 % (0-4.4); Hematocrit 39.2 % (37.0-47.0); Hemoglobin 12.9 g/dL (12.0-15.0); Immature Granulocyte Absolute 0.03 K/mm3 (0.00-0.031); Immature Granulocyte Percent A 0.3 % (0-0.5); Lymphocytes Absolute Auto 4.21 K/mm3 (0.9-3.2); Lymphocytes Percent Auto 45.6 % (18.3-44.2); Mean Corpuscular HGB Conc 32.9 g/dl (32-36); Mean Corpuscular Hemoglobin 28.9 pg (26-34); Mean Corpuscular Volume 87.9 fl (80-100); Mean Platelet Volume 9.1 fl (7.4-10.4); Monocytes Absolute Auto 0.6 K/mm3 (0.1-0.6); Monocytes Percent Auto 6.2 % (2.6-8.5); Neutrophils Absolute Auto 4.2 K/mm3 (1.3-6.7); Platelet Count Result 251 k/mm3 (150-375); Red Blood Count 4.46 M/mm3 (4.2-5.4); White Blood Count 9.2 K/mm3 (4.5-10.0)
[2024-03-23 06:25] LABS: Alanine Aminotransferase 18 U/L (6-35); Albumin Level 4.5 g/dL (3.5-5.1); Alkaline Phosphatase 73 U/L (38-126); Anion Gap 12 mmol/L (4-12); Aspartate Amino Transferase 29 U/L (14-36); Bilirubin,Total 1.1 mg/dL (0.2-1.3); Blood Urea Nitrogen 6 mg/dL (7-17); Calcium 9.5 mg/dL (8.4-10.2); Carbon Dioxide 28 mmol/L (22-30); Chloride 100 mmol/L (98-107); Estimated CRCL calculation 58 ml/min; Estimated Glomerular Filt Rate > 60; Glucose 107 mg/dL (65-110); Potassium 3.3 mmol/L (3.4-5.0); Sodium 140 mmol/L (137-145)
[2024-03-23 07:36] LABS: Glucose Point of Care 139 mg/dl (65-105)
--- NOTE | 2024-03-23 08:17 | PM.IMPN ---
Progress Note: A&P Assessment and Plan (1) Altered mental status: Qualifiers: Altered mental status type: unspecified Qualified Code(s): R41.82 - Altered mental status, unspecified Code(s): R41.82 - Altered mental status, unspecified Status: Acute Assessment and Plan: AOx1 at time of assessment. Per chart review patient is baseline AOx4?? Originally thought to be due to underlying infection, however infectious etiology continues to be ruled out. Possibly due to worsening Parkinson dementia. - Head CT: No acute intracranial findings. Pansinusitis. - Chest XR: No acute cardiopulmonary pathology. - UA: turbid appearance with 3+ protein, trace ketones, 2+ blood, 2+ leukocytes, 51-100 RBC, >100 WBC - UC obtained on 03/20:negative - Blood cultures obtained on 03/22: NGTD - Toxicology negative - Covid positive, last day of isolation 03/22 per SNF - LFTs WNL - Flu/RSV negative - Monitor (2) COVID-19: Code(s): U07.1 - COVID-19 Status: Acute Assessment and Plan: Covid positive on PCR. Per [place] patient has completed her isolation precautions. (3) Sinusitis: Code(s): J32.9 - Chronic sinusitis, unspecified Status: Acute Assessment and Plan: CT head: No acute intracranial findings. Pansinusitis. - Doxycycline started 03/22 - Monitor (4) UTI (urinary tract infection): Code(s): N39.0 - Urinary tract infection, site not specified Status: Acute Assessment and Plan: - UA: turbid appearance with 3+ protein, trace ketones, 2+ blood, 2+ leukocytes, 51-100 RBC, >100 WBC - UC obtained on 03/20: negative - previous micro reviewed 02/16: citrobacter amalonaticus with ESBL resistance 09/01: klebsiella oxytoca resistant to cefazolin 05/11/23: enterococcus species pansensitive - started on meropenem 03/20, discontinued on 03/22 Resolved. (5) Hypokalemia: Code(s): E87.6 - Hypokalemia Status: Acute Assessment and Plan: Potassium 2.8 on admission. - K 3.3 on am labs. Repleted. - Continue tele monitoring - Continue to monitor (6) Diabetes mellitus: Code(s): E11.9 - Type 2 diabetes mellitus without complications Status: Chronic Assessment and Plan: - hypoglycemia protocol - POC blood glucose ACHS - home medication - lantus 28 units - correct regimen ordered - continue home regimen - A1C 6.2 on 02/18/24 (7) Parkinsons disease: Code(s): G20 - Parkinson's disease Status: Chronic Assessment and Plan: - continue home medications: Carbidopa-levodopa 25-100 t.i.d. - fall precautions - concern about worsening parkinsons dementia Time Spent With Patient Time with patient: 25 - 35 minutes Subjective Date/time seen: 03/23/24 08:17 Interval history: 68 y/o female with past medical history of DM, HLD, HTN, COPD and bipolar and Parkinson's presents to the hospital for altered mental status. Patient is pleasant lying in bed. She is AOx0-1 at this time. She denies any pain and then stopped answering questions. Per RN patient has had decreased appetite. Call made to patients sister/POA Rebekah. Per sister, they experienced very similar decline in their mothers Parkinson. She wishes to pursue the MRI to rule out anything, but then plans to move forward with home hospice. Consult placed to care coordination. All questions answered at that time. Review of Systems Review of Systems: ROS unobtainable: Yes unobtainable due to mental status Exam Narrative: AF HR 82 RR 18 SpO2 100 BP 151/78 General: female in no acute respiratory distress who is nontoxic appearing, lying semi recumbent in bed. HEENT: Normocephalic. Atraumatic. Extraocular movement intact. Sclera clear and anicteric. No facial asymmetry. Chest: Lungs are clear to auscultation bilaterally. No wheezes or crackles. CV: Heart was regular rate and rhythm. S1-S2. No murmurs, gallops, or rubs. Abd: Abdomen was soft. Nontender. Nondistended. Pos
[2024-03-23] MEDS: FAMOTIDINE 20 MG TABLET 40 MG PO (08:48)
[2024-03-23] MEDS: GABAPENTIN 400 MG CAPSULE PO ×3 (08:49→16:12)
[2024-03-23] MEDS: DOXYCYCLINE HYCLATE 100 MG TABLET PO ×2 (08:49→20:43)
[2024-03-23] MEDS: amLODIPine BESYLATE 10 MG TABLET PO (08:49)
[2024-03-23] MEDS: METOPROLOL SUCCINATE EXT REL 100 MG TABCR PO (08:49)
[2024-03-23] MEDS: lisinopriL 20 MG TABLET PO (08:49)
[2024-03-23] MEDS: PRAMIPEXOLE 1 MG TABLET PO ×3 (08:49→16:12)
[2024-03-23] MEDS: ATORVASTATIN 40 MG TABLET 80 MG PO (08:49)
[2024-03-23] MEDS: lamoTRIgine 100 MG TABLET PO (08:49)
[2024-03-23] MEDS: ENOXAPARIN 40 MG/0.4 ML SYRINGE SUB-Q (08:49)
[2024-03-23] MEDS: ATROPINE SULFATE 1% OPHTH SOLN 5 ML BOTTLE 1 DROP EACH EYE ×2 (08:49→16:13)
[2024-03-23] MEDS: LATANOPROST 0.005% OP SOLN 2.5 ML BTL 1 DROP RIGHT EYE (08:50)
[2024-03-23] MEDS: CARBIDOPA/LEVODOPA 25/100 MG TABLET 1 TABLET PO ×3 (08:53→16:12)
[2024-03-23 12:06] LABS: Glucose Point of Care 122 mg/dl (65-105)
[2024-03-23] MEDS: ACETAMINOPHEN 325 MG TABLET 650 MG PO (15:05)
[2024-03-23 16:58] LABS: Glucose Point of Care 164 mg/dl (65-105)
[2024-03-23 20:39] LABS: Glucose Point of Care 125 mg/dl (65-105)
[2024-03-23] MEDS: lamoTRIgine 100 MG TABLET 200 MG PO (20:43)
[2024-03-23] MEDS: INSULIN GLARGINE (*BKC) 100 UNITS/ML 28 UNITS SUB-Q (20:44)
[2024-03-23 21:51] LABS: Add Urine Microscopic? YES; Appearance Urine Clear (Clear); Bacteria Urine None Seen /hpf; Bilirubin Urine Negative (Negative); Blood Urine Negative (Negative); Color Urine Yellow (Yellow); Glucose Urine UA Negative (Negative); Ketones Urine Negative (Negative); Leukocyte Esterase Ur 3+ LEU/UL (Negative); Nitrate Urine Negative (Negative); Non Pathogenic Casts 0-2; Protein Urine Negative (Negative); RBC Urine 0-2 /hpf (0-2); Specific Grav Ur 1.006 (1.001-1.035); Squamous Epithelial Cell Urine None Seen /hpf (Few); Urobilinogen Urine 0.2 mg/dL (<2.0); WBC Urine >100 /hpf (0-3)
--- NOTE | 2024-03-23 22:03 | PM.EVENT ---
Event Note Event Note Event Note: I was called by Nursing about urinary retention, no output in over 12 hours and bladder scan showed greater than 700. Ordered Forrest placement with UA/UC to be obtained from new cath sample. Reviewed chart and recent UC was negative but there are still >100 WBCs noted. Defer further abx at this point.
[2024-03-24] VITALS (10 sets, daily range): BP systolic 121–167; BP diastolic 56–75; PULSE 54–80; RESP 13–16; TEMP 36–37.3; O2SAT 98–100
[2024-03-24 06:36] LABS: Basophils Absolute Auto 0.1 K/mm3 (0.0-0.1); Basophils Percent Auto 0.5 % (0.2-1.2); Eosinophils Absolute Auto 0.2 K/mm3 (0-0.3); Eosinophils Percent Auto 1.6 % (0-4.4); Hematocrit 36.9 % (37.0-47.0); Immature Granulocyte Absolute 0.04 K/mm3 (0.00-0.031); Immature Granulocyte Percent A 0.4 % (0-0.5); Lymphocytes Absolute Auto 2.11 K/mm3 (0.9-3.2); Lymphocytes Percent Auto 20.1 % (18.3-44.2); Mean Corpuscular HGB Conc 32.5 g/dl (32-36); Mean Corpuscular Hemoglobin 28.6 pg (26-34); Mean Corpuscular Volume 87.9 fl (80-100); Mean Platelet Volume 8.9 fl (7.4-10.4); Monocytes Absolute Auto 0.6 K/mm3 (0.1-0.6); Monocytes Percent Auto 5.5 % (2.6-8.5); Neutrophils Absolute Auto 7.5 K/mm3 (1.3-6.7); Neutrophils Percent Auto 71.9 % (45.5-73.1); Platelet Count Result 219 k/mm3 (150-375); Red Cell Distribution Width 14.9 % (11.5-14.5); White Blood Count 10.5 K/mm3 (4.5-10.0)
[2024-03-24 06:51] LABS: Alanine Aminotransferase 15 U/L (6-35); Albumin Level 3.8 g/dL (3.5-5.1); Alkaline Phosphatase 64 U/L (38-126); Anion Gap 10 mmol/L (4-12); Aspartate Amino Transferase 26 U/L (14-36); Blood Urea Nitrogen 6 mg/dL (7-17); Carbon Dioxide 27 mmol/L (22-30); Chloride 102 mmol/L (98-107); Estimated CRCL calculation 58 ml/min; Estimated Glomerular Filt Rate > 60; Glucose 102 mg/dL (65-110); Potassium 2.9 mmol/L (3.4-5.0); Sodium 139 mmol/L (137-145)
[2024-03-24 08:19] LABS: Glucose Point of Care 119 mg/dl (65-105)
[2024-03-24] MEDS: POTASSIUM CHLORIDE 20 MEQ ER TABLET 40 MEQ PO (08:49)
[2024-03-24] MEDS: PRAMIPEXOLE 1 MG TABLET PO ×3 (08:49→16:48)
[2024-03-24] MEDS: POTASSIUM CHLORIDE INJ 40 MEQ in SODIUM CHLORIDE 0.9% IV 500 ML 130 MEQ IVPB (08:49)
[2024-03-24] MEDS: FAMOTIDINE 20 MG TABLET 40 MG PO (08:50)
[2024-03-24] MEDS: METOPROLOL SUCCINATE EXT REL 100 MG TABCR PO (08:50)
[2024-03-24] MEDS: ATORVASTATIN 40 MG TABLET 80 MG PO (08:51)
[2024-03-24] MEDS: ATROPINE SULFATE 1% OPHTH SOLN 5 ML BOTTLE 1 DROP EACH EYE (08:52)
[2024-03-24] MEDS: amLODIPine BESYLATE 10 MG TABLET PO (08:52)
[2024-03-24] MEDS: lamoTRIgine 100 MG TABLET PO (08:52)
[2024-03-24] MEDS: DOXYCYCLINE HYCLATE 100 MG TABLET PO ×2 (08:52→20:34)
[2024-03-24] MEDS: lisinopriL 20 MG TABLET PO (08:52)
[2024-03-24] MEDS: ENOXAPARIN 40 MG/0.4 ML SYRINGE SUB-Q (08:52)
[2024-03-24] MEDS: CARBIDOPA/LEVODOPA 25/100 MG TABLET 1 TABLET PO ×3 (08:54→16:48)
[2024-03-24] MEDS: GABAPENTIN 400 MG CAPSULE PO ×3 (08:54→16:48)
[2024-03-24 11:54] LABS: Glucose Point of Care 97 mg/dl (65-105)
--- NOTE | 2024-03-24 13:33 | PM.IMPN ---
Progress Note: A&P Assessment and Plan (1) Altered mental status: Qualifiers: Altered mental status type: unspecified Qualified Code(s): R41.82 - Altered mental status, unspecified Code(s): R41.82 - Altered mental status, unspecified Status: Acute Assessment and Plan: AOx0 at time of assessment. Per chart review patient is baseline AOx4?? Originally thought to be due to underlying infection, however infectious etiology continues to be ruled out. Possibly due to worsening Parkinson dementia. - Head CT: No acute intracranial findings. Pansinusitis. - Chest XR: No acute cardiopulmonary pathology. - UA: turbid appearance with 3+ protein, trace ketones, 2+ blood, 2+ leukocytes, 51-100 RBC, >100 WBC - UC obtained on 03/20:negative - Blood cultures obtained on 03/22: NGTD - Toxicology negative - Covid positive, last day of isolation 03/22 per SNF - LFTs WNL - Flu/RSV negative - Monitor Per care coordination patients family has meeting with hospice [facility] tomorrow. (2) COVID-19: Code(s): U07.1 - COVID-19 Status: Acute Assessment and Plan: Covid positive on PCR. Per [place] patient has completed her isolation precautions. (3) Sinusitis: Code(s): J32.9 - Chronic sinusitis, unspecified Status: Acute Assessment and Plan: CT head: No acute intracranial findings. Pansinusitis. - Doxycycline started 03/22 - Monitor (4) UTI (urinary tract infection): Code(s): N39.0 - Urinary tract infection, site not specified Status: Acute Assessment and Plan: - UA: turbid appearance with 3+ protein, trace ketones, 2+ blood, 2+ leukocytes, 51-100 RBC, >100 WBC - UC obtained on 03/20: negative - previous micro reviewed 02/16: citrobacter amalonaticus with ESBL resistance 09/01: klebsiella oxytoca resistant to cefazolin 05/11/23: enterococcus species pansensitive - started on meropenem 03/20, discontinued on 03/22 Resolved. (5) Hypokalemia: Code(s): E87.6 - Hypokalemia Status: Acute Assessment and Plan: Potassium 2.8 on admission. - K 2.9 on am labs. Repleted. - Continue tele monitoring - Continue to monitor (6) Diabetes mellitus: Code(s): E11.9 - Type 2 diabetes mellitus without complications Status: Chronic Assessment and Plan: - hypoglycemia protocol - POC blood glucose ACHS - home medication - lantus 28 units - correct regimen ordered - continue home regimen - A1C 6.2 on 02/18/24 (7) Parkinsons disease: Code(s): G20 - Parkinson's disease Status: Chronic Assessment and Plan: - continue home medications: Carbidopa-levodopa 25-100 t.i.d. - fall precautions - concern about worsening parkinsons dementia Time Spent With Patient Time with patient: 25 - 35 minutes Subjective Date/time seen: 03/24/24 13:33 Interval history: 68 y/o female with past medical history of DM, HLD, HTN, COPD and bipolar and Parkinson's presents to the hospital for altered mental status. Patient is pleasant sitting on the side of her bed. She is AOx0 with increased tremors. She is unable to answer questions, but does follow commands. Reports were obtained from [facility] in regards to patients stent and she was able to undergo a MRI today. The MRI showed moderate nonspecific cerebral white matter disease, which likely represents chronic small vessel ischemic disease. Patient was noted to have increased urinary retention overnight. A garsia catheter was placed and a new urine culture was obtained. Care coordination is following and family plans on patient going hospice at time of discharge. [facility] meeting scheduled for tomorrow. Review of Systems Review of Systems: ROS unobtainable: Yes unobtainable due to mental status Exam Narrative: AF HR 80 RR 16 SpO2 100 BP 155/75 General: female in no acute respiratory distress who is nontoxic appearing, lying semi recumbent in bed. HEENT: Normocephalic. Atraumatic. Extraocular movemen
[2024-03-24] MEDS: DEXTROSE 5%/0.45% SOD CHL 1,000 ML 65 ML IV CONT (16:49)
[2024-03-24 16:56] LABS: Glucose Point of Care 99 mg/dl (65-105)
[2024-03-24] MEDS: INSULIN GLARGINE (*BKC) 100 UNITS/ML 28 UNITS SUB-Q (20:33)
[2024-03-24] MEDS: lamoTRIgine 100 MG TABLET 200 MG PO (20:34)
[2024-03-24 20:36] LABS: Glucose Point of Care 104 mg/dl (65-105)
[2024-03-25] VITALS (8 sets, daily range): BP systolic 147–148; BP diastolic 53–69; PULSE 53–111; RESP 12–16; TEMP 36.1–36.4; O2SAT 96–100
[2024-03-25 06:29] LABS: Basophils Percent Auto 0.4 % (0.2-1.2); Eosinophils Absolute Auto 0.1 K/mm3 (0-0.3); Eosinophils Percent Auto 1.4 % (0-4.4); Hematocrit 38.5 % (37.0-47.0); Hemoglobin 11.8 g/dL (12.0-15.0); Immature Granulocyte Absolute 0.03 K/mm3 (0.00-0.031); Immature Granulocyte Percent A 0.3 % (0-0.5); Lymphocytes Absolute Auto 2.56 K/mm3 (0.9-3.2); Lymphocytes Percent Auto 27.3 % (18.3-44.2); Mean Corpuscular HGB Conc 30.6 g/dl (32-36); Mean Corpuscular Hemoglobin 29.3 pg (26-34); Mean Corpuscular Volume 95.5 fl (80-100); Monocytes Absolute Auto 0.6 K/mm3 (0.1-0.6); Monocytes Percent Auto 6.1 % (2.6-8.5); Neutrophils Absolute Auto 6.1 K/mm3 (1.3-6.7); Neutrophils Percent Auto 64.5 % (45.5-73.1); Platelet Count Result 207 k/mm3 (150-375); Red Blood Count 4.03 M/mm3 (4.2-5.4); White Blood Count 9.4 K/mm3 (4.5-10.0)
[2024-03-25 06:40] LABS: Alanine Aminotransferase 16 U/L (6-35); Albumin Level 3.6 g/dL (3.5-5.1); Alkaline Phosphatase 61 U/L (38-126); Anion Gap 10 mmol/L (4-12); Aspartate Amino Transferase 27 U/L (14-36); Bilirubin,Total 1.1 mg/dL (0.2-1.3); Blood Urea Nitrogen 9 mg/dL (7-17); Calcium 9.3 mg/dL (8.4-10.2); Carbon Dioxide 22 mmol/L (22-30); Chloride 105 mmol/L (98-107); Estimated CRCL calculation 58 ml/min; Estimated Glomerular Filt Rate > 60; Glucose 88 mg/dL (65-110); Potassium 3.6 mmol/L (3.4-5.0); Sodium 137 mmol/L (137-145)
[2024-03-25 07:59] LABS: Glucose Point of Care 107 mg/dl (65-105)
[2024-03-25] MEDS: lamoTRIgine 100 MG TABLET PO (09:03)
[2024-03-25] MEDS: FAMOTIDINE 20 MG TABLET 40 MG PO (09:03)
[2024-03-25] MEDS: METOPROLOL SUCCINATE EXT REL 100 MG TABCR PO (09:03)
[2024-03-25] MEDS: DOXYCYCLINE HYCLATE 100 MG TABLET PO ×2 (09:03→21:06)
[2024-03-25] MEDS: ATORVASTATIN 40 MG TABLET 80 MG PO (09:03)
[2024-03-25] MEDS: amLODIPine BESYLATE 10 MG TABLET PO (09:04)
[2024-03-25] MEDS: lisinopriL 20 MG TABLET PO (09:04)
[2024-03-25] MEDS: GABAPENTIN 400 MG CAPSULE PO ×3 (09:07→17:01)
[2024-03-25] MEDS: CARBIDOPA/LEVODOPA 25/100 MG TABLET 1 TABLET PO ×3 (09:07→17:01)
[2024-03-25] MEDS: PRAMIPEXOLE 1 MG TABLET PO ×3 (09:08→17:01)
[2024-03-25 11:36] LABS: Glucose Point of Care 125 mg/dl (65-105)
[2024-03-25] MEDS: DEXTROSE 5%/0.45% SOD CHL 1,000 ML 65 ML IV CONT ×2 (11:40→17:01)
--- NOTE | 2024-03-25 16:18 | PM.IMPN ---
Progress Note: A&P Assessment and Plan (1) Altered mental status: Qualifiers: Altered mental status type: unspecified Qualified Code(s): R41.82 - Altered mental status, unspecified Code(s): R41.82 - Altered mental status, unspecified Status: Acute Assessment and Plan: AOx1 at time of assessment. Per chart review patient is baseline AOx4?? Originally thought to be due to underlying infection, however infectious etiology continues to be ruled out. Possibly due to worsening Parkinson dementia. - Head CT: No acute intracranial findings. Pansinusitis. - Chest XR: No acute cardiopulmonary pathology. - UA: turbid appearance with 3+ protein, trace ketones, 2+ blood, 2+ leukocytes, 51-100 RBC, >100 WBC - UC obtained on 03/20:negative - Blood cultures obtained on 03/22: NGTD - Toxicology negative - Covid positive, last day of isolation 03/22 per SNF - LFTs WNL - Flu/RSV negative - Monitor Family meeting with [facility] today at 3. Awaiting decision on hospice care. (2) COVID-19: Code(s): U07.1 - COVID-19 Status: Acute Assessment and Plan: Covid positive on PCR. Per [place] patient has completed her isolation precautions. (3) Sinusitis: Code(s): J32.9 - Chronic sinusitis, unspecified Status: Acute Assessment and Plan: CT head: No acute intracranial findings. Pansinusitis. - Doxycycline started 03/22 (complete on 03/27) - Monitor (4) UTI (urinary tract infection): Code(s): N39.0 - Urinary tract infection, site not specified Status: Acute Assessment and Plan: - UA: turbid appearance with 3+ protein, trace ketones, 2+ blood, 2+ leukocytes, 51-100 RBC, >100 WBC - UC obtained on 03/20: negative - previous micro reviewed 02/16: citrobacter amalonaticus with ESBL resistance 09/01: klebsiella oxytoca resistant to cefazolin 05/11/23: enterococcus species pansensitive - started on meropenem 03/20, discontinued on 03/22 Resolved. (5) Hypokalemia: Code(s): E87.6 - Hypokalemia Status: Acute Assessment and Plan: Potassium 2.8 on admission. - K 3.6 on am labs. - Continue tele monitoring - Continue to monitor (6) Diabetes mellitus: Code(s): E11.9 - Type 2 diabetes mellitus without complications Status: Chronic Assessment and Plan: - hypoglycemia protocol - POC blood glucose ACHS - home medication - lantus 28 units - correct regimen ordered - continue home regimen - A1C 6.2 on 02/18/24 (7) Parkinsons disease: Code(s): G20 - Parkinson's disease Status: Chronic Assessment and Plan: - continue home medications: Carbidopa-levodopa 25-100 t.i.d. - fall precautions - concern about worsening parkinsons dementia Time Spent With Patient Time with patient: 25 - 35 minutes Subjective Date/time seen: 03/25/24 16:18 Interval history: 68 y/o female with past medical history of DM, HLD, HTN, COPD and bipolar and Parkinson's presents to the hospital for altered mental status. Patient is pleasant sitting up in her chair. She is AOx1 (self). She continues to be confused, but able to answer some questions and forms partial sentences. She agrees that her tremors have gotten worse. She has no complaints at this time, denying chest pain, shortness of breath, nausea/vomiting and changes in bowel/bladder. Her family has a meeting today with hospice [facility] at 3 o clock. Awaiting family's decision on hospice care. Review of Systems Review of Systems: All systems reviewed & are unremarkable except as noted in HPI and below Exam Narrative: AF HR 75 RR 16 SpO2 99 BP 148/69 General: female in no acute respiratory distress who is nontoxic appearing, lying semi recumbent in bed. HEENT: Normocephalic. Atraumatic. Extraocular movement intact. No sinus tenderness. Sclera clear and anicteric. No facial asymmetry. Chest: Lungs are clear to auscultation bilaterally. No wheezes or crackles. CV: Heart was regular rate and rhyt
[2024-03-25 16:45] LABS: Glucose Point of Care 114 mg/dl (65-105)
[2024-03-25 20:53] LABS: Glucose Point of Care 106 mg/dl (65-105)
[2024-03-25] MEDS: INSULIN GLARGINE (*BKC) 100 UNITS/ML 28 UNITS SUB-Q (21:06)
[2024-03-25] MEDS: lamoTRIgine 100 MG TABLET 200 MG PO (21:06)
[2024-03-26 06:00] VITALS: BP 132/60; PULSE 76; RESP 13; TEMP 36.4; O2SAT 100
[2024-03-26 06:17] LABS: Basophils Absolute Auto 0.1 K/mm3 (0.0-0.1); Basophils Percent Auto 0.6 % (0.2-1.2); Eosinophils Absolute Auto 0.2 K/mm3 (0-0.3); Eosinophils Percent Auto 1.9 % (0-4.4); Hematocrit 32.6 % (37.0-47.0); Hemoglobin 10.9 g/dL (12.0-15.0); Immature Granulocyte Absolute 0.02 K/mm3 (0.00-0.031); Immature Granulocyte Percent A 0.2 % (0-0.5); Lymphocytes Absolute Auto 3.07 K/mm3 (0.9-3.2); Lymphocytes Percent Auto 35.8 % (18.3-44.2); Mean Corpuscular HGB Conc 33.4 g/dl (32-36); Mean Corpuscular Hemoglobin 29.4 pg (26-34); Mean Corpuscular Volume 87.9 fl (80-100); Mean Platelet Volume 9.2 fl (7.4-10.4); Monocytes Absolute Auto 0.6 K/mm3 (0.1-0.6); Monocytes Percent Auto 6.9 % (2.6-8.5); Neutrophils Absolute Auto 4.7 K/mm3 (1.3-6.7); Neutrophils Percent Auto 54.6 % (45.5-73.1); Platelet Count Result 197 k/mm3 (150-375); Red Blood Count 3.71 M/mm3 (4.2-5.4); Red Cell Distribution Width 15.1 % (11.5-14.5); White Blood Count 8.6 K/mm3 (4.5-10.0)
[2024-03-26 06:30] LABS: Alanine Aminotransferase 13 U/L (6-35); Albumin Level 3.5 g/dL (3.5-5.1); Alkaline Phosphatase 61 U/L (38-126); Anion Gap 10 mmol/L (4-12); Aspartate Amino Transferase 22 U/L (14-36); Bilirubin,Total 0.9 mg/dL (0.2-1.3); Blood Urea Nitrogen 10 mg/dL (7-17); Carbon Dioxide 27 mmol/L (22-30); Chloride 102 mmol/L (98-107); Estimated CRCL calculation 58 ml/min; Estimated Glomerular Filt Rate > 60; Glucose 73 mg/dL (65-110); Sodium 139 mmol/L (137-145)
[2024-03-26 07:45] LABS: Glucose Point of Care 81 mg/dl (65-105)
[2024-03-26] MEDS: ENOXAPARIN 40 MG/0.4 ML SYRINGE SUB-Q (09:05)
[2024-03-26] MEDS: ATORVASTATIN 40 MG TABLET 80 MG PO (09:05)
[2024-03-26 09:06] VITALS: PULSE 80
[2024-03-26] MEDS: amLODIPine BESYLATE 10 MG TABLET PO (09:06)
[2024-03-26] MEDS: lamoTRIgine 100 MG TABLET PO (09:06)
[2024-03-26] MEDS: CARBIDOPA/LEVODOPA 25/100 MG TABLET 1 TABLET PO ×2 (09:06→11:56)
[2024-03-26] MEDS: METOPROLOL SUCCINATE EXT REL 100 MG TABCR PO (09:06)
[2024-03-26] MEDS: PRAMIPEXOLE 1 MG TABLET PO ×2 (09:06→11:56)
[2024-03-26] MEDS: GABAPENTIN 400 MG CAPSULE PO ×2 (09:06→11:56)
[2024-03-26] MEDS: FAMOTIDINE 20 MG TABLET 40 MG PO (09:06)
[2024-03-26] MEDS: lisinopriL 20 MG TABLET PO (09:06)
[2024-03-26] MEDS: DOXYCYCLINE HYCLATE 100 MG TABLET PO (09:06)
--- NOTE | 2024-03-26 09:42 | PM.IMPN ---
Progress Note: A&P Assessment and Plan (1) Altered mental status: Qualifiers: Altered mental status type: unspecified Qualified Code(s): R41.82 - Altered mental status, unspecified Code(s): R41.82 - Altered mental status, unspecified Status: Acute Assessment and Plan: AOx1 at time of assessment. Per chart review patient is baseline AOx4?? Originally thought to be due to underlying infection, however infectious etiology continues to be ruled out. Possibly due to worsening Parkinson dementia. - Head CT: No acute intracranial findings. Pansinusitis. - Chest XR: No acute cardiopulmonary pathology. - UA: turbid appearance with 3+ protein, trace ketones, 2+ blood, 2+ leukocytes, 51-100 RBC, >100 WBC - UC obtained on 03/20:negative - Blood cultures obtained on 03/22: NGTD - Toxicology negative - Covid positive, last day of isolation 03/22 per SNF - LFTs WNL - Flu/RSV negative - Monitor Family meeting with [facility] today at 3. Awaiting decision on hospice care. (2) COVID-19: Code(s): U07.1 - COVID-19 Status: Acute Assessment and Plan: Covid positive on PCR. Per [place] patient has completed her isolation precautions. (3) Sinusitis: Code(s): J32.9 - Chronic sinusitis, unspecified Status: Acute Assessment and Plan: CT head: No acute intracranial findings. Pansinusitis. - Doxycycline started 03/22 (complete on 03/27) - Monitor (4) UTI (urinary tract infection): Code(s): N39.0 - Urinary tract infection, site not specified Status: Acute Assessment and Plan: - UA: turbid appearance with 3+ protein, trace ketones, 2+ blood, 2+ leukocytes, 51-100 RBC, >100 WBC - UC obtained on 03/20: negative - previous micro reviewed 02/16: citrobacter amalonaticus with ESBL resistance 09/01: klebsiella oxytoca resistant to cefazolin 05/11/23: enterococcus species pansensitive - started on meropenem 03/20, discontinued on 03/22 Resolved. (5) Hypokalemia: Code(s): E87.6 - Hypokalemia Status: Acute Assessment and Plan: Potassium 2.8 on admission. - K 3.6 on am labs. - Continue tele monitoring - Continue to monitor 03/26- 3 today - will add daily suppliment (6) Diabetes mellitus: Code(s): E11.9 - Type 2 diabetes mellitus without complications Status: Chronic Assessment and Plan: - hypoglycemia protocol - POC blood glucose ACHS - home medication - lantus 28 units - correct regimen ordered - continue home regimen - A1C 6.2 on 02/18/24 (7) Parkinsons disease: Code(s): G20 - Parkinson's disease Status: Chronic Assessment and Plan: - continue home medications: Carbidopa-levodopa 25-100 t.i.d. - fall precautions - concern about worsening parkinsons dementia Time Spent With Patient Time with patient: Greater than 35 minutes Subjective Date/time seen: 03/26/24 09:42 Interval history: 68 y/o female with past medical history of DM, HLD, HTN, COPD and bipolar and Parkinson's presents to the hospital for altered mental status. Patient is pleasant sitting up in her chair. She is AOx1 (self). She continues to be confused, but able to answer some questions and forms partial sentences. She agrees that her tremors have gotten worse. She has no complaints at this time, denying chest pain, shortness of breath, nausea/vomiting and changes in bowel/bladder. Her family has a meeting today with hospice [facility] at 3 o clock. Awaiting family's decision on hospice care. 03/26- assuming care. Pt is seen and examined at the bedside. Hospice meeting today at 3 pm. Review of Systems Review of Systems: All systems reviewed & are unremarkable except as noted in HPI and below ROS unobtainable: Yes unobtainable due to mental status Exam Narrative: AF HR 75 RR 16 SpO2 99 BP 148/69 General: female in no acute respiratory distress who is nontoxic appearing, lying semi recumbent in bed. HEENT: Normocephalic. Atraumatic. Extraocul
[2024-03-26] MEDS: POTASSIUM CHLORIDE 20 MEQ PACKET (FOR LIQUID) PO (11:55)
[2024-03-26 11:59] LABS: Glucose Point of Care 76 mg/dl (65-105)
--- NOTE | 2024-03-26 12:03 | PM.DS ---
DS: Admitting Diagnosis Discharge Date 03/26 Admitting Diagnosis ams DS: Discharge Diagnosis Discharge Diagnosis (1) Altered mental status: Qualifiers: Altered mental status type: unspecified Qualified Code(s): R41.82 - Altered mental status, unspecified Code(s): R41.82 - Altered mental status, unspecified Status: Acute Assessment and Plan: AOx1 at time of assessment. Per chart review patient is baseline AOx4?? Originally thought to be due to underlying infection, however infectious etiology continues to be ruled out. Possibly due to worsening Parkinson dementia. - Head CT: No acute intracranial findings. Pansinusitis. - Chest XR: No acute cardiopulmonary pathology. - UA: turbid appearance with 3+ protein, trace ketones, 2+ blood, 2+ leukocytes, 51-100 RBC, >100 WBC - UC obtained on 03/20:negative - Blood cultures obtained on 03/22: NGTD - Toxicology negative - Covid positive, last day of isolation 03/22 per SNF - LFTs WNL - Flu/RSV negative - Monitor Family meeting with [facility] today at 3. Awaiting decision on hospice care. (2) COVID-19: Code(s): U07.1 - COVID-19 Status: Acute Assessment and Plan: Covid positive on PCR. Per [place] patient has completed her isolation precautions. (3) Sinusitis: Code(s): J32.9 - Chronic sinusitis, unspecified Status: Acute Assessment and Plan: CT head: No acute intracranial findings. Pansinusitis. - Doxycycline started 03/22 (complete on 03/27) - Monitor (4) UTI (urinary tract infection): Code(s): N39.0 - Urinary tract infection, site not specified Status: Acute Assessment and Plan: - UA: turbid appearance with 3+ protein, trace ketones, 2+ blood, 2+ leukocytes, 51-100 RBC, >100 WBC - UC obtained on 03/20: negative - previous micro reviewed 02/16: citrobacter amalonaticus with ESBL resistance 09/01: klebsiella oxytoca resistant to cefazolin 05/11/23: enterococcus species pansensitive - started on meropenem 03/20, discontinued on 03/22 Resolved. (5) Hypokalemia: Code(s): E87.6 - Hypokalemia Status: Acute Assessment and Plan: Potassium 2.8 on admission. - K 3.6 on am labs. - Continue tele monitoring - Continue to monitor 03/26- 3 today - will add daily suppliment (6) Diabetes mellitus: Code(s): E11.9 - Type 2 diabetes mellitus without complications Status: Chronic Assessment and Plan: - hypoglycemia protocol - POC blood glucose ACHS - home medication - lantus 28 units - correct regimen ordered - continue home regimen - A1C 6.2 on 02/18/24 (7) Parkinsons disease: Code(s): G20 - Parkinson's disease Status: Chronic Assessment and Plan: - continue home medications: Carbidopa-levodopa 25-100 t.i.d. - fall precautions - concern about worsening parkinsons dementia DS: Summary Hospital Course Reason for hospitalization: [facility] Hospital Course: interval history: 68 y/o female with past medical history of DM, HLD, HTN, COPD and bipolar and Parkinson's presents to the hospital for altered mental status. Patient is pleasant sitting up in her chair. She is AOx1 (self). She continues to be confused, but able to answer some questions and forms partial sentences. She agrees that her tremors have gotten worse. She has no complaints at this time, denying chest pain, shortness of breath, nausea/vomiting and changes in bowel/bladder. Her family has a meeting today with hospice [facility] at 3 o clock. Awaiting family's decision on hospice care. 03/26- assuming care. Pt is seen and examined at the bedside. Hospice meeting today at 3 pm. Status at Discharge Functional status at discharge: uses cane/walker Overall status at discharge: patient is back to baseline Time Spent with Patient Time attestation: Total time spent providing and/or coordinating discharge services: Time spent: Less than 30 minutes Exam Narrative: AF HR 75 RR 16 SpO2 99 BP 148/69
== END 2024-03-26 14:30 | disposition hospice, home (50) ==
LOC: ANHED 20:58 → ANH3MEDSUR 22:00
PROVIDERS: Nurse Practitioner; Admitting Provider Internal Medicine; Emergency Provider Preventive Medicine Aerospace Medicine; Visit Provider Student in an Organized Health Care Education/Training Program
DX: U07.1 COVID-19 (principal); J32.9 Chronic sinusitis, unspecified; R33.9 Retention of urine, unspecified; E87.6 Hypokalemia; W18.30XA Fall on same level, unspecified, initial encounter; J44.9 Chronic obstructive pulmonary disease, unspecified; I10 Essential (primary) hypertension; E11.9 Type 2 diabetes mellitus without complications; E78.5 Hyperlipidemia, unspecified; G20.A1 Parkinson's disease without dyskinesia, without mention of fluctuations; F31.9 Bipolar disorder, unspecified; F41.8 Other specified anxiety disorders; Z86.73 Personal history of transient ischemic attack (TIA), and cerebral infarction without residual deficits; Z79.51 Long term (current) use of inhaled steroids; Z79.82 Long term (current) use of aspirin; Z79.899 Other long term (current) drug therapy
CPT/HCPCS: 36415; 70450; 70551; 71045; 80048; 80053; 80307; 81001; 82140; 82803; 82948; 83605; 85025; 87040; 87086; 87637; 96361; 96365; 96366; 96367; 96372; 96376; 97110; 97116; 97161; 97165; 97535; 99285; A9270; G0378; J1650; J1815; J2185; J3480; J7030; J7040

== ENCOUNTER 2024-09-02 13:26 | Emergency (ER) | payer MEDICARE, MEDICAID, SELFPAY ==
--- NOTE | ~2024-09-02 | XR_ITS ---
EXAMINATION: XR chest 1V portable DATE: 09/02/2024 14:40 INDICATION: Hyperglycemia. TECHNIQUE: A single frontal view of the chest was obtained. COMPARISON: Chest single view 03/20/2024, chest CT 09/01/2023 FINDINGS: There is no pneumonia, pleural effusion, or pneumothorax. The heart size is normal. There a re changes of anterior fusion procedure in cervical spine. IMPRESSION: 1. No acute cardiopulmonary disease. Reviewed, dictated and finalized at location [facility]
[2024-09-02 13:39] VITALS: BP 115/87; PULSE 103; RESP 18; TEMP 36.3; O2SAT 100
[2024-09-02 13:40] LABS: Glucose Point of Care > 500 mg/dl (65-105)
[2024-09-02] MEDS: SODIUM CHLORIDE 0.9% IV 1,000 ML 999 ML IV CONT (14:32)
[2024-09-02] MEDS: INSULIN HUMAN REGULAR (*BKC) 100 UNITS/ML 7 UNITS IV PUSH ×2 (14:33→16:42)
--- NOTE | 2024-09-02 15:37 | ED.GENADULT ---
HPI - General Adult General Chief complaint: Recheck/Abnormal Lab/Rx Stated complaint: high BS Time Seen by Provider: 09/02/24 14:15 History of Present Illness HPI narrative: Patient is a 69-year-old female who presents emergency department chief complaint of hyperglycemia. Patient is currently undergoing hospice care for end-stage Parkinson's the patient reports that she has not been checking her blood sugars and has noticed that her blood sugar today was greater than 500 the patient was instructed to come to the emergency department for evaluation. Patient reports he has had polyuria polydipsia Related Data Home Medications ?Medication ?Instructions ?Recorded ?Confirmed ?Last Taken ?Type atorvastatin 80 mg tablet 80 mg PO DAILY 08/14/19 03/20/24 Unknown History clonazepam 0.5 mg tablet 0.5 mg PO BID 08/14/19 03/20/24 Unknown History ezetimibe 10 mg tablet 10 mg PO DAILY 08/14/19 03/20/24 Unknown History lamotrigine 100 mg tablet 100 mg PO DAILY 08/14/19 03/20/24 Unknown History latanoprost 0.005 % eye drops 1 drp RIGHT EYE DAILY 01/07/20 03/20/24 Unknown History acetaminophen 325 mg tablet 650 mg PO QID PRN Pain 03/04/22 03/20/24 Unknown History diclofenac sodium 1 % topical gel 1 ea topical QID 03/04/22 03/20/24 Unknown History famotidine 40 mg tablet 40 mg PO DAILY 03/04/22 03/20/24 Unknown History multivitamin with minerals 1 tablet PO DAILY 03/04/22 03/20/24 Unknown History albuterol sulfate 90 mcg/actuation 2 puff inhalation Q4H PRN Wheezing 02/17/24 03/20/24 Unknown History aerosol inhaler (Ventolin HFA) atropine 1 % eye drops 1 drp EACH EYE BID 02/17/24 03/20/24 Unknown History calcium carbonate 500 mg PO Q4-6H PRN Heartburn 02/17/24 03/20/24 Unknown History carbidopa 25 mg-levodopa 100 mg 1 tablet PO TID 02/17/24 03/20/24 Unknown History tablet gabapentin 400 mg capsule 400 mg PO TID 02/17/24 03/20/24 Unknown History lisinopril 20 mg tablet 20 mg PO DAILY 02/17/24 03/20/24 Unknown History lurasidone 60 mg tablet 60 mg PO QAM 02/17/24 03/20/24 Unknown History metoprolol succinate 100 mg 100 mg PO DAILY 02/17/24 03/20/24 Unknown History tablet,extended release 24 hr omeprazole 20 mg capsule,delayed 20 mg PO DAILY 02/17/24 03/21/24 Unknown History release phenazopyridine 200 mg tablet 200 mg PO TID PRN Pain, Mild 02/17/24 03/21/24 Unknown History potassium chloride 20 mEq 40 meq PO DAILY 02/17/24 03/20/24 Unknown History tablet,extended release pramipexole 1 mg tablet 1 mg PO TID 02/17/24 03/20/24 Unknown History zolpidem 12.5 mg tablet,extended 12.5 mg PO HS PRN Sleep 02/17/24 03/20/24 Unknown History release,multiphase amlodipine 10 mg tablet 10 mg PO DAILY 03/20/24 03/20/24 Unknown History ascorbic acid (vitamin C) 500 mg 500 mg PO BID 03/20/24 03/20/24 Unknown History tablet (Vitamin C) cholecalciferol (vitamin D3) 25 25 mcg PO DAILY 03/20/24 03/20/24 Unknown History mcg (1,000 unit) tablet cyanocobalamin (vitamin B-12) 100 100 mcg PO DAILY 03/20/24 03/20/24 Unknown History mcg tablet estradiol 0.01% (0.1 mg/gram) 2 g vaginal DAILY 03/20/24 03/20/24 Unknown History vaginal cream insulin glargine 100 unit/mL (3 28 unit subcut HS 03/20/24 03/20/24 Unknown History mL) subcutaneous pen (Basaglar KwikPen U-100 Insulin) lamotrigine 100 mg tablet 200 mg PO HS 03/20/24 03/20/24 Unknown History sodium chloride 0.65 % nasal spray 1 spray intranasal Q2H PRN Dry Nose 03/20/24 03/20/24 Unknown History aerosol (Deep Sea Nasal) Allergies Allergy/AdvReac Type Severity Reaction Status Date / Time ciprofloxacin Allergy Severe SEVERE Verified 02/17/24 13:42 MIGRAINES Penicillins Allergy Severe ANAPHYLAXIS Verified 02/17/24 13:42 Quinolones Allergy Severe ANAPHYLAXIS Verified 02/17/24 13:42 Sulfa (Sulfonamide Allergy Severe HIVES Verified 02/17/24 13:42 Antibiotics) adhesive tape Allergy Rash Verified 02/17/24 13:42 cephalexin (From Keflex) Allergy Anaphylaxis Verified 02/17/24 13:42 chlorthalidone Allergy Rash Verified 02/17/24 13:42 fentanyl Allergy Anaphylaxis Verified 02/17/24 13:42 ibuprofen Allergy Rash Verified 02/17/24 13:42 levofloxacin (From Levaquin) Allergy Rash Verified 02/17/24 13:42 vancomycin Allergy Gastrointestinal Verified 02/17/24 13:42 Upset morphine AdvReac Mild RASH Verified 02/17/24 13:42 Review of Systems Review of Systems: A 10 system review of systems was completed on the patient and is negative except for what is stated in the HPI. Nursing and ancillary documentation was reviewed. [facility] Past Medical History Medical History Bipolar disorder Anxiety and depression Glaucoma GERD (gastroesophageal reflux disease) COPD (chronic obstructive pulmonary disease) Asthma Carotid artery stenosis Atrial flutter TIA (transient ischemic attack) Hyperlipidemia Diabetes Hypertension Parkinsons disease Family History Family History Mother Parkinson's disease Father Brain aneurysm Social History Social History Smoking packs per day: 1 Smoking cigarettes per day: 20.0 Years smoked: 30 Smoking pack-years: 30.00 Smoking status: Never smoker Alcohol intake: never Substance use: never Do You Feel Safe in your Home?: Yes Lack of Transportation: No Lack of Food: Never True Current Housing: I Have Housing Concerned About Future Housing: No Difficulty Paying Gas/Electric Bills: No Difficulty Paying for Meds: No Currently Unemployed: No Education: Decline to Answer Difficulty w/ Childcare or Family Care: No Gender identity (if verbalized by the patient): Female Spiritual care concerns: No Exam Narrative: GENERAL: Well-appearing, well-nourished, and in no acute distress. HEAD: Normocephalic, atraumatic. EYES: PERRLA and EOMI. ENT: Nares clear, no rhinorrhea or epistaxis. Mucous membranes moist. NECK: Supple. CHEST: Clear to auscultation. No respiratory distress. HEART: Regular rate and rhythm. No murmur heard. Normal peripheral pulses. ABDOMEN: Soft, nontender, nondistended, normal active bowel sounds. EXTREMITIES: Normal range of motion. No edema. SKIN: Warm, dry, no rash. NEURO: No focal deficits. Alert and oriented x3. PSYCH: Normal mood and affect. Course Vital Signs Vital signs: Vital Signs Temperature 36.3 C L 09/02/24 13:39 Pulse Rate 103 H 09/02/24 13:39 Respiratory Rate 18 09/02/24 13:39 Blood Pressure 115/87 09/02/24 13:39 Pulse Oximetry 100 09/02/24 13:39 Oxygen Delivery Room Air 09/02/24 13:39 Temperature 36.3 C L 09/02/24 13:39 Pulse Rate 103 H 09/02/24 13:39 Respiratory Rate 18 09/02/24 13:39 Blood Pressure 115/87 09/02/24 13:39 Pulse Oximetry 100 09/02/24 13:39 Oxygen Delivery Room Air 09/02/24 13:39 Medical Decision Making [facility] Narrative Medical decision making narrative: Differential diagnosis includes sepsis, UTI, noncompliance, hyperglycemia Laboratory studies showed white count of 13.1 CBC showed an anion gap of 10 BUN and creatinine were 23 and 1.2 potassium was 5.2 lactate was 1.0 troponin was negative beta hydroxybutyrate was 0.33 urinalysis showed negative leukocyte esterase negative nitrate Is that patient received IV fluids and received IV insulin in the emergency department blood sugar has come down from greater than 500 down to 292 The patient was instructed to follow her diabetic diet Vital Signs Vital Signs: Vital Signs Temperature 36.3 C L 09/02/24 13:39 Pulse Rate 103 H 09/02/24 13:39 Respiratory Rate 18 09/02/24 13:39 Blood Pressure 115/87 09/02/24 13:39 Pulse Oximetry 100 09/02/24 13:39 Oxygen Delivery Room Air 09/02/24 13:39 Temperature 36.3 C L 09/02/24 13:39 Pulse Rate 103 H 09/02/24 13:39 Respiratory Rate 18 09/02/24 13:39 Blood Pressure 115/87 09/02/24 13:39 Pulse Oximetry 100 09/02/24 13:39 Oxygen Delivery Room Air 09/02/24 13:39 Lab Data 09/02/24 15:48 09/02/24 15:48 Labs: Lab Results 09/02/24 09/02/24 09/02/24 Range/Units 13:32 15:48 16:12 WBC 13.1 H (4.5-10.0) K/mm3 RBC 3.73 L (4.2-5.4) M/mm3 Hgb 11.6 L (12.0-15.0) g/dL Hct 34.9 L (37.0-47.0) % MCV 93.6 (80-100) fl MCH 31.1 (26-34) pg MCHC 33.2 (32-36) g/dl RDW 14.0 (11.5-14.5) % Plt Count 281 (150-375) k/mm3 MPV 8.8 (7.4-10.4) fl Immature Gran % (Auto) 1.1 H (0-0.5) % Neut % (Auto) 65.5 (45.5-73.1) % Lymph % (Auto) 25.5 (18.3-44.2) % [place] % (Auto) 5.0 (2.6-8.5) % Eos % (Auto) 2.1 (0-4.4) % Baso % (Auto) 0.8 (0.2-1.2) % Lymph # (Auto) 3.35 H (0.9-3.2) K/mm3 [place] # (Auto) 0.7 H (0.1-0.6) K/mm3 Eos # (Auto) 0.3 (0-0.3) K/mm3 Baso # (Auto) 0.1 (0.0-0.1) K/mm3 Abs Immat Gran (auto) 0.15 H (0.00-0.031) K/mm3 Absolute Neuts (auto) 8.6 H (1.3-6.7) K/mm3 Absolute Nucleated RBC 0.000 (0.0-0.012) K/mm3 Nucleated RBC % 0.0 (0.0-0.2) % PT 14.1 (11.1-14.7) Seconds INR 1.1 APTT 24.7 (22.3-36.8) Seconds Sodium 130 L (137-145) mmol/L Potassium 5.2 H (3.4-5.0) mmol/L Chloride 94 L (98-107) mmol/L Carbon Dioxide 26 (22-30) mmol/L Anion Gap 10 (4-12) mmol/L BUN 23 H D (7-17) mg/dL Creatinine 1.20 H (0.7-1.0) mg/dL Estim Creat Clear Calc 39 ml/min Estimated GFR 45 L (59 - ) Glucose 454 H (65-110) mg/dL POC Capillary Glucose > 500 H* 461 H (65-105) mg/dl Lactic Acid 1.0 (0.7-2.0) mmol/L Calcium 9.1 (8.4-10.2) mg/dL Magnesium 1.9 (1.6-2.3) mg/dL Total Bilirubin 0.6 (0.2-1.3) mg/dL AST 37 H (14-36) U/L ALT 35 (6-35) U/L Alkaline Phosphatase 170 H (38-126) U/L Troponin I < 0.012 (0.000-0.034) ng/mL Total Protein 7.0 (6.3-8.2) g/dL Albumin 3.9 (3.5-5.1) g/dL Lipase 480 H (23-300) U/L Beta-Hydroxybutyrate/Acetoacetate 0.33 H (0.02-0.27) mmol/L Procalcitonin 0.1 ng/mL Urine Color (Yellow) Urine Appearance (Clear) Urine pH (5.0-9.0) Ur Specific [place] (1.001-1.035) Urine Protein (Negative) mg/dL Urine Glucose (UA) (Negative) mg/dL Urine Ketones (Negative) mg/dL Ur Blood (Man) (Negative) Urine Nitrate (Negative) Urine Bilirubin (Negative) Urine Urobilinogen (<2.0) mg/dL Leukocyte Esterase Rfl (Negative) JOYCE/UL 09/02/24 09/02/24 Range/Units 16:29 17:28 WBC (4.5-10.0) K/mm3 RBC (4.2-5.4) M/mm3 Hgb (12.0-15.0) g/dL Hct (37.0-47.0) % MCV (80-100) fl MCH (26-34) pg MCHC (32-36) g/dl RDW (11.5-14.5) % Plt Count (150-375) k/mm3 MPV (7.4-10.4) fl Immature Gran % (Auto) (0-0.5) % Neut % (Auto) (45.5-73.1) % Lymph % (Auto) (18.3-44.2) % [place] % (Auto) (2.6-8.5) % Eos % (Auto) (0-4.4) % Baso % (Auto) (0.2-1.2) % Lymph # (Auto) (0.9-3.2) K/mm3 [place] # (Auto) (0.1-0.6) K/mm3 Eos # (Auto) (0-0.3) K/mm3 Baso # (Auto) (0.0-0.1) K/mm3 Abs Immat Gran (auto) (0.00-0.031) K/mm3 Absolute Neuts (auto) (1.3-6.7) K/mm3 Absolute Nucleated RBC (0.0-0.012) K/mm3 Nucleated RBC % (0.0-0.2) % PT (11.1-14.7) Seconds INR APTT (22.3-36.8) Seconds Sodium (137-145) mmol/L Potassium (3.4-5.0) mmol/L Chloride (98-107) mmol/L Carbon Dioxide (22-30) mmol/L Anion Gap (4-12) mmol/L BUN (7-17) mg/dL Creatinine (0.7-1.0) mg/dL Estim Creat Clear Calc ml/min Estimated GFR (59 - ) Glucose (65-110) mg/dL POC Capillary Glucose 292 H (65-105) mg/dl Lactic Acid (0.7-2.0) mmol/L Calcium (8.4-10.2) mg/dL Magnesium (1.6-2.3) mg/dL Total Bilirubin (0.2-1.3) mg/dL AST (14-36) U/L ALT (6-35) U/L Alkaline Phosphatase (38-126) U/L Troponin I (0.000-0.034) ng/mL Total Protein (6.3-8.2) g/dL Albumin (3.5-5.1) g/dL Lipase (23-300) U/L Beta-Hydroxybutyrate/Acetoacetate (0.02-0.27) mmol/L Procalcitonin ng/mL Urine Color Yellow (Yellow) Urine Appearance Clear (Clear) Urine pH 6.0 (5.0-9.0) Ur Specific [place] 1.021 (1.001-1.035) Urine Protein Negative (Negative) mg/dL Urine Glucose (UA) 3+ H (Negative) mg/dL Urine Ketones Trace H (Negative) mg/dL Ur Blood (Man) Negative (Negative) Urine Nitrate Negative (Negative) Urine Bilirubin Negative (Negative) Urine Urobilinogen 0.2 (<2.0) mg/dL Leukocyte Esterase Rfl Negative (Negative) JOYCE/UL Discharge Plan Discharge Clinical Impression: Hyperglycemia Patient Disposition: Home, Self-Care Condition: Stable Instructions: Antibiotic Form, Diabetic Hyperglycemia (ED) Patient Language: Grenadian Prescriptions: No Action atorvastatin 80 mg tablet 80 mg PO DAILY clonazepam 0.5 mg tablet 0.5 mg PO BID lamotrigine 100 mg tablet 100 mg PO DAILY Rx Instructions: 1 Tablet daily, 2 tablets at HS ezetimibe 10 mg tablet 10 mg PO DAILY latanoprost 0.005 % drops 1 drp RIGHT EYE DAILY amlodipine 10 mg tablet 10 mg PO DAILY Deep Sea Nasal 0.65 % aerosol,spray 1 spray INTRANASAL Q2H PRN (Reason: Dry Nose) insulin glargine [Basaglar KwikPen U-100 Insulin] 100 unit/mL (3 mL) insulin pen 28 unit SUBCUT HS estradiol 0.01 % (0.1 mg/gram) cream 2 g VAGINAL DAILY lamotrigine 100 mg Tablet 200 mg PO HS cyanocobalamin (vitamin B-12) 100 mcg tablet 100 mcg PO DAILY ascorbic acid (vitamin C) [Vitamin C] 500 mg tablet 500 mg PO BID cholecalciferol (vitamin D3) 25 mcg (1,000 unit) tablet 25 mcg PO DAILY acetaminophen 325 mg tablet 650 mg PO QID PRN (Reason: Pain) famotidine 40 mg tablet 40 mg PO DAILY multivitamin with minerals Tablet 1 tablet PO DAILY diclofenac sodium 1 % gel 1 ea TOPICAL QID Rx Instructions: Affected Area 4 times per day asneeded pramipexole 1 mg Tablet 1 mg PO TID Rx Instructions: Take at 0800; 1200; 1600 phenazopyridine 200 mg Tablet 200 mg PO TID PRN (Reason: Pain, Mild) lisinopril 20 mg Tablet 20 mg PO DAILY metoprolol succinate 100 mg Tablet Extended Release 24 Hr 100 mg PO DAILY gabapentin 400 mg Capsule 400 mg PO TID Rx Instructions: Take at 0800; 1200; 1600 calcium carbonate 200 mg calcium (500 mg) Tablet,Chewable 500 mg PO Q4-6H PRN (Reason: Heartburn) omeprazole 20 mg Capsule,Delayed Release(Dr/Ec) 20 mg PO DAILY albuterol sulfate [Ventolin HFA] 90 mcg/actuation Hfa Aerosol Inhaler 2 puff INHALATION Q4H PRN (Reason: Wheezing) carbidopa-levodopa 25-100 mg Tablet 1 tablet PO TID Rx Instructions: Take at 0800; 1200; 2000 atropine 1 % Drops 1 drp EACH EYE BID zolpidem 12.5 mg Tablet,Ext Release Multiphase 12.5 mg PO HS PRN (Reason: Sleep) lurasidone 60 mg Tablet 60 mg PO QAM Rx Instructions: must administer with food (at least 350 calories) potassium chloride 20 mEq Tablet Extended Release 40 meq PO DAILY Follow-up/Referrals: UNKNOWN,DOCTOR [Primary Care Provider] - Time of Disposition: 17:58
[2024-09-02 15:55] LABS: Basophils Absolute Auto 0.1 K/mm3 (0.0-0.1); Basophils Percent Auto 0.8 % (0.2-1.2); Eosinophils Absolute Auto 0.3 K/mm3 (0-0.3); Eosinophils Percent Auto 2.1 % (0-4.4); Hematocrit 34.9 % (37.0-47.0); Hemoglobin 11.6 g/dL (12.0-15.0); Immature Granulocyte Absolute 0.15 K/mm3 (0.00-0.031); Immature Granulocyte Percent A 1.1 % (0-0.5); Lymphocytes Absolute Auto 3.35 K/mm3 (0.9-3.2); Lymphocytes Percent Auto 25.5 % (18.3-44.2); Mean Corpuscular HGB Conc 33.2 g/dl (32-36); Mean Corpuscular Hemoglobin 31.1 pg (26-34); Mean Corpuscular Volume 93.6 fl (80-100); Mean Platelet Volume 8.8 fl (7.4-10.4); Monocytes Absolute Auto 0.7 K/mm3 (0.1-0.6); Neutrophils Absolute Auto 8.6 K/mm3 (1.3-6.7); Neutrophils Percent Auto 65.5 % (45.5-73.1); Platelet Count Result 281 k/mm3 (150-375); Red Blood Count 3.73 M/mm3 (4.2-5.4); White Blood Count 13.1 K/mm3 (4.5-10.0)
[2024-09-02 16:05] LABS: INR 1.1; Prothrombin Time 14.1 Seconds (11.1-14.7)
[2024-09-02 16:06] LABS: Alanine Aminotransferase 35 U/L (6-35); Albumin Level 3.9 g/dL (3.5-5.1); Alkaline Phosphatase 170 U/L (38-126); Anion Gap 10 mmol/L (4-12); Aspartate Amino Transferase 37 U/L (14-36); Bilirubin,Total 0.6 mg/dL (0.2-1.3); Blood Urea Nitrogen 23 mg/dL (7-17); Calcium 9.1 mg/dL (8.4-10.2); Carbon Dioxide 26 mmol/L (22-30); Chloride 94 mmol/L (98-107); Estimated CRCL calculation 39 ml/min; Estimated Glomerular Filt Rate 45; Glucose 454 mg/dL (65-110); Lipase 480 U/L (23-300); Magnesium 1.9 mg/dL (1.6-2.3); Partial Thromboplastin Time 24.7 Seconds (22.3-36.8); Potassium 5.2 mmol/L (3.4-5.0); Sodium 130 mmol/L (137-145)
[2024-09-02 16:18] LABS: Troponin I < 0.012 ng/mL (0.000-0.034)
[2024-09-02 16:18] LABS: Glucose Point of Care 461 mg/dl (65-105)
[2024-09-02 16:29] LABS: Procalcitonin 0.1 ng/mL
[2024-09-02 16:46] LABS: Beta-Hydroxybutyrate/Acetoacetate 0.33 mmol/L (0.02-0.27)
[2024-09-02 17:03] LABS: Add Urine Microscopic? NO; Appearance Urine Clear (Clear); Bilirubin Urine Negative (Negative); Blood Urine Negative (Negative); Color Urine Yellow (Yellow); Glucose Urine UA 3+ mg/dL (Negative); Ketones Urine Trace mg/dL (Negative); Leukocyte Esterase Ur Negative LEU/UL (Negative); Nitrate Urine Negative (Negative); Protein Urine Negative (Negative); Specific Grav Ur 1.021 (1.001-1.035); Urobilinogen Urine 0.2 mg/dL (<2.0)
[2024-09-02 17:30] LABS: Glucose Point of Care 292 mg/dl (65-105)
--- OUTSIDE RECORDS SUMMARY | 2024-09-04 18:29 | XMS_ITS | Clinical Summary ---
Author Organization [facility] [employer] Address [address] [place] [address] Care Team Providers Care Pharmacy Buyer Name Role Phone Jose Elias Samaniego RN Unavailable Unavailab Jen Toro ASPH[employer] TAMPING MACHINE OPERATOR-CNA HHA Primary Care Provider Pedro Cordero MD Unavailable [phone] Abigail Thibodeaux MD Unavailable Alen Cox MD Unavailable Mindy Salgado PA-C Unavailable Connor Higgins MD Unavailable Source Comments [facility],non-owned Affiliates and Associated Physician Practices is amultiple site organization consisting of ambulatory clinics and hospital sitesin [place], [place], [place] and [place]. This disclosure is being madepursuant to the Care Everywhere program and may not contain all information available regarding this patient. Last updated 18.[facility] Allergies Active Allergy Reactions Criticality Noted Date Comments Adhesive Sensitivity Rash,Itching Medium 02/07/2010 blistering , paper tape ok Cephalexin Anaphylaxis,Shortne ss of Breath,Rash High 03/07/2013 Says that allergy tested - may take low doses of penicillin Can take cefpodoxime, and rocephin Chlorthalidone Rash Medium 11/19/2020 Ciprofloxacin Nausea and/or Vomiting,Headache Medium 07/05/2011 Severe headache. Fentanyl Anaphylaxis High 09/05/2013 Was told she had anaphylaxis when she was hospitalized Ibuprofen Rash,Renal Injury High 02/05/2019 due to renal failure Levofloxacin Urticaria,Rash Medium 12/16/2009 Other reaction(s): Hives, purpura Metformin Diarrhea 03/23/2022 Methadone Nausea and/or Vomiting,Palpitatio ns,Psychiatric Medium 02/07/2010 Anxiety, insomnia Morphine Urticaria,Rash,Itch ing High 04/08/2008 Other reaction(s): Hives Opioids - Morphine Analogues [Other] Rash Medium 05/16/2021 Received name: Opioids - Morphine Analogues Penicillins Anaphylaxis High 11/12/2017 Passed PCN testing on 11/05/2018 Sulfa Drugs Urticaria,Rash High 12/16/2009 Other reaction(s): Hives Vancomycin GI Discomfort,Nausea and/or Vomiting Low 12/16/2009 Other reaction(s): GI Upset Medications * Be aware that medications may not be up to date on this document. Alwaysverify current medications with the patient. Medication Sig Dispensed Refills Start Date End Date Status Multiple Vitamin (MULTI-VITAMINS) TABS Take 1 (one) tablet by mouth once daily Active ezetimibe (ZETIA) 10 MG tablet Take 1 (one) tablet by mouth once daily 30 tablet 11 1 Active albuterol HFA (VENTOLIN HFA) 108 (90 Base) MCG/ACT inhaler Inhale 2 (two) puffs by mouth every 4 hours as needed 18 g 5 2 Active aspirin (Aspirin) 81 MG chew tablet Take 1 (one) tablet by mouth once daily Active famotidine (Pepcid) 40 MG tablet Take 1 (one) tablet by mouth once daily 2 Active cyanocobalamin 100 MCG tablet Take 1 (one) tablet by mouth once daily Active Cholecalciferol 25 MCG (1000 UT) Take 1 (one) tablet by mouth once daily Active atorvastatin (Lipitor) 80 MG tablet Take 1 (one) tablet by mouth once daily Active omeprazole (PriLOSEC) 20 MG capsule 3 Active Blood Glucose Monitoring Suppl (ONE TOUCH ULTRA 2) w/Device KIT 3 Active pramipexole (Mirapex) 1 MG tablet Take 1 (one) tablet by mouth 3 times daily 90 tablet 5 3 Active carbidopa-levodopa (Sinemet) 25-100 MG tablet Take 1 (one) tablet by mouth 3 times daily 90 tablet 5 3 Active blood glucose test stripIndications:Ty pe 2 diabetes mellitus with hyperglycemia, without long-term current use of insulin ([facility]) Use as directed. 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, without long-term current use of insulin ([facility]) PEN NEEDLE USED FOR SUB-Q INJECTION 100 Each 4 3 Active Easy Touch Lancets 30G MISC 4 Active gabapentin (Neurontin) 400 MG capsule Take 1 (one) capsule by mouth 3 times daily 90 capsule 11 4 Active metoprolol succinate XL 24hr (Toprol XL) 100 MG tabletIndications:C arotid artery calcification, right,Essential hypertension,Heart palpitations,Caroti d stenosis, right,Iliac artery pseudoaneurysm (HCC),Diastolic dysfunction without heart failure,Paroxysmal atrial fibrillation (HCC),Coronary artery disease involving seminole coronary artery of seminole heart, unspecified whether angina present,TIA (transient ischemic attack),Atypical atrial flutter (HCC),Atrial flutter, unspecified type (HCC),LVH (left ventricular hypertrophy) due to hypertensive disease, without heart failure,High risk medications (not anticoagulants) long-term use Take 1 (one) tablet by mouth once daily 30 tablet 11 4 Active estradiol (Estrace) 0.1 MG/GM vaginal cream Insert 2 g into the vagina once daily 42.5 g 11 4 Active ascorbic acid (Vitamin C) 500 MG tablet Take 1 (one) tablet by mouth 2 times daily 60 tablet 3 4 Active clonazePAM (KlonoPIN) 0.5 MG tabletIndications:A gitation,Anxiety Take one tab in the morning and one tab at 4 pm for anxiety. Reasons: Agitation, Feeling Anxious 60 tablet 2 4 Active lamoTRIgine (LaMICtal) 100 MG tabletIndications:B ipolar Mood Disorder Take 2 (two) tablets by mouth at bedtime AND 1 (one) tablet every morning. Reasons: Manic-Depression. 90 tablet 3 4 Active lurasidone (Latuda) 60 MG tablet Take 1 (one) tablet by mouth daily with breakfast 30 tablet 2 4 Active zolpidem CR (Ambien CR) 12.5 MG tabletIndications:I nsomnia Take 1 (one) tablet by mouth nightly as needed for Insomnia Reasons: Trouble Sleeping 30 tablet 2 4 Active Pimavanserin Tartrate (Nuplazid) 34 MG CAPS Take 1 (one) capsule by mouth once daily 30 capsule 2 4 Active lisinopril (Prinivil; Zestril) 20 MG tablet Take 1 (one) tablet by mouth once daily 4 Active diclofenac sodium (Voltaren) 1 % gel Apply 2 (two) g to affected area 4 times daily as needed 100 g 1 4 Active saline nasal spray ([place]; Baby [place]) 0.65 % nasal spray [place] 1 (one) spray into each nostril every 2 hours as needed for Dry Nose 4 Active potassium chloride ER (Klor-Con M) 20 MEQ tabletIndications:H ypokalemia Take 2 (two) tablets by mouth once daily 60 tablet 2 4 Active Basaglar KwikPen (Basaglar) pen Inject 28 (twenty eight) Units subcutaneously at bedtime 3 mL 11 4 Active amLODIPine (Norvasc) 10 MG tablet TAKE ONE TABLET BY MOUTH ONCE DAILY 90 tablet 4 02/05/20 25 Active phenazopyridine (Pyridium) 200 MG tablet TAKE 1 TABLET (=200MG) BY MOUTH 3 TIMES A DAY FOR PAINFUL URINATION 4 Active fluconazole (DIFLUCAN) 150 MG tablet Take 1 tablet by mouth once for 1 dose 1 tablet 9 09/04/19 25 Discontinu ed(List Clean-Up) cefpodoxime (VANTIN) 200 MG tablet Take 1 tablet by mouth every 12 hours for 5 days 10 tablet 9 09/04/19 25 Discontinu ed(List Clean-Up) fluconazole (DIFLUCAN) 150 MG tablet Take 1 tablet by mouth once for 1 dose 1 tablet 9 09/04/19 Discontinu ed(List Clean-Up) cefpodoxime (VANTIN) 200 MG tabletIndications:C omplicated Urinary Tract Infection,verified with patient and supervisor parking lot that pt can take cefpodoxime, [facility] 15 [facility] observation Take 1 (one) tablet by mouth 2 times daily for 5 days Reasons: Complicated Urinary Tract Infection, verified with patient and supervisor parking lot that pt can take cefpodoxime, [facility] observation 20 tablet 1 09/04/19 Discontinu ed(List Clean-Up) fluconazole (DIFLUCAN) 150 MG tablet Take 1 (one) tablet by mouth once for 1 dose May repeat x 1 1 tablet 1 1 09/04/19 Discontinu ed(List Clean-Up) cefpodoxime (VANTIN) 200 MG tablet Take 1 (one) tablet by mouth every 12 hours for 14 days 28 tablet 1 09/04/19 Discontinu ed(List Clean-Up) cefpodoxime (VANTIN) 100 MG tablet Take 1 (one) tablet by mouth every 12 hours for 7 days 14 tablet 2 09/04/19 Discontinu ed(List Clean-Up) fluconazole (Diflucan) 150 MG tablet Take 1 (one) tablet by mouth once for 1 dose May repeat dose in 5 days 2 tablet 2 09/04/19 Discontinu ed(List Clean-Up) atropine 1 % ophthalmic solution Dissolve 1 (one) drop under the tongue 2 times daily 4 09/04/19 Discontinu ed(List Clean-Up) calcium carbonate (Tums) 500 MG chew tablet Take 2 (two) tablets by mouth every 4 hours as needed for Heartburn 4 09/04/19 Discontinu ed(List Clean-Up) fluconazole (Diflucan) 200 MG tablet TAKE 4 TABLETS BY MOUTH EVERY DAY FOR 2 DAYS 8 tablet 4 09/04/19 Discontinu ed(List Clean-Up) nystatin (Mycostatin) 322074 UNIT/ML suspension 4 09/04/19 25 Discontinu ed(List Clean-Up) furosemide (Lasix) 20 MG tablet TAKE 1 TABLET (=20MG) BY MOUTH EVERY DAY FOR FLUID RETENTION X 5 DAYS 4 09/04/19 25 Discontinu ed(List Clean-Up) nitrofurantoin macrocrystal (Macrodantin) 100 MG capsule Take 1 (one) capsule by mouth 4 09/04/19 25 Discontinu ed(List Clean-Up) methenamine hippurate (Hiprex) 1 GM tablet TAKE 1 TABLET (=1GRAM) BY MOUTH TWICE A DAY FOR URINARY TRACT INFECTION X 5 DAYS 4 09/04/19 25 Discontinu ed(List Clean-Up) Active Problems Problem Noted Date Diagnosed Date Ecchymosis 02/02/2024 Encephalopathy 02/02/2024 Leg edema, left 06/29/2023 Skin lump of leg, right 06/29/2023 Laceration of left femoral artery 03/16/2023 Fall, initial encounter 02/17/2023 Overview (10/04/2023): Recurrent falls February 2023 syncope and fall and sustained laceration fem artery Sep 2023 fell off toilet and sustained rib fx 09/28/23 fell in shower and hit head History of Parkinson's disease 02/17/2023 Injury of left common femoral artery, initial en counter 02/17/2023 Chronic bronchitis, unspecified chronic bronchit is type 11/24/2022 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 Does endorse palpitations with activity, HR in the 70s, will increase BB to 100mg BID. Assessment & Plan (09/02/2021 8:42 AM CANE FEEDER): Eliquis and BB. Does endorse palpitations with increase SPB. HR in the 50-60s will not further increase BB at this time. Assessment & Plan (06/30/2021 4:55 PM CANE FEEDER): Eliquis and BB. Denies reoccurrence. Urinary tract infection without hematuria 2020 Rash and other nonspecific skin eruption 021 Angular cheilitis 02/18/2021 Solar aging of skin 02/18/2021 Type 2 diabetes mellitus wit h hyperglycemia, without long-term current use of insulin 11/16/2020 Swelling of lower extremity 11/16/2020 Heart palpitations 11/16/2020 Assessment & Plan (12/13/2020 10:39 AM CDT): Denies continue BB. Device showed 9 minutes of Atrial Flutter will review addition of NOAC with Dr. Velarde. PT has not obtained Eliquis yet, I have called in a coupon trial free 30 day offer. Assessment & Plan (11/29/2020 11:05 AM CDT): Denies continue BB. Device showed 9 minutes of Atrial Flutter will review addition of NOAC with Dr. Velarde. Mixed hyperlipidemia 09/02/2020 Diabetes mellitus type 2, controlled 09/15/2019 Carotid stenosis, right 09/11/2019 Gait instability 05/26/2019 History of penicillin allergy 11/05/2018 Mild intermittent asthma without complication Itchy eyes 11/05/2018 Recurrent UTI 10/09/2018 Assessment & Plan (06/30/2021 4:56 PM CANE FEEDER): I have reached out to ID for assitance, pt is concerned she has reoccurrence of UTI. 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 Pt will follow up with ID. LVH (left ventricular hypert rophy) due to hypertensive disease, without heart failure 06/30/2018 Diastolic dysfunction without heart failure 06/13 CVID (common variable immunodeficiency) 06/25/20 18 Mannose-binding lectin deficiency 06/25/2018 Recurrent falls while walking 06/17/2018 Rotator cuff disorder 06/17/2018 Non-allergic rhinitis 06/11/2018 Overview (06/11/2018): 05/31/2018 Aeroallergen panel all negative. Total IgE 2. Vocal cord dysfunction 06/09/2018 HARSH (obstructive sleep apnea) 07/24/2016 Nonalcoholic fatty liver disease 07/11/2016 Female hypogonadism 06/24/2016 Bipolar 2 disorder 01/15/2016 Glaucoma of both eyes 10/15/2015 Type 2 diabetes mellitus with hyperglycemia 10/2014 Essential hypertension 01/11/2015 Assessment & Plan (10/04/2021 11:04 AM CANE FEEDER): SBP uncontrolled. Resumed Triamterene 50mg BID previously will continue HCTZ 25mg Daily and Metoprolol will increase to 100mg BID for HTN and palpations. BMP stable. Assessment & Plan (09/02/2021 8:39 AM CANE FEEDER): SBP uncontrolled. Resume Triamterene 50mg BID continue HCTZ 25mg Daily and Metoprolol 50mg BID. BMP in one week to ensue creatine is stable. Triamterene was stopped last fall in the setting and dehydration, diarrhea dn LUZ. Assessment & Plan (06/30/2021 4:54 PM CANE FEEDER): Stable off HCTZ continue metoprolol 50mg BID. Would address UTI before resuming HCTZ. BP controlled in clinic, BP log and [employer] message in 1-2 weeks. Assessment & Plan (12/13/2020 10:40 AM CDT): Stable. SBP controlled has been controlled per her report at home. Increased to 50mg in clinic today. Check BMP in 1-2 weeks. Follow up with Abigail or Dr. Cordero in 6 months for BP check. Assessment & Plan (11/26/2020 1:02 PM CDT): PT stopped Chlorthalidone secondary to rash. She resumed her HCTZ with SBP controlled has been controlled per her report at home. Increased to 50mg in clinic today. Check BMP in 1-2 weeks. 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 Also note brother with colon cancer age 60 years 12/14/20 colonoscopy: two diminutive adenomas removed from rectosigmoid colon, repeat in 2025 Restless legs 08/18/2009 GERD (gastroesophageal reflux disease) 8 Resolved Problems Problem Noted Date Diagnosed Date Resolved Date Urinary tract infection with hematuria, site unspecified 12/26/2023 02/02/2024 Pyelonephritis 05/31/2021 06/07/2021 Chest tightness 05/10/2021 05/13/2021 Flank pain 05/10/2021 05/13/2021 Benzodiazepine withdrawal wi thout complication 11/05/2018 02/15/2019 Multiple drug allergies 06/09/2018 07/0 01/2019 Recurrent nephrolithiasis 12/26/2017 Primary osteoarthritis of right knee 06/04/2017 03/07/2018 UTI (urinary tract infection) 05/10/2017 05/27/2017 LUZ (acute kidney injury) 02/05/2017 Surgical menopause 06/24/2016 8 Insomnia due to medical condition 06/24/2016 03/07/2018 Hypnopompic hallucination 06/24/2016 Hypersomnia due to medical condition 06/24/2016 03/07/2018 Cataplexy 06/24/2016 02/15/2019 History of head injury 06/24/201606/09 Overview (12/26/2017): Overview: LOC 3 days Rectal bleeding 04/06/2016 02/15/2019 Bloating 11/15/2015 03/07/2018 Overview (12/26/2017): Overview: Bloating and Gas. Celiac vs SIBO vs medication vs other. - Had EGD with small bowel aspirate and gastric duodenal biopsies done 11/04/2015 - Consider empiric treatment of SIBO (bacterial overgrowth) if above negative. - Trial of Questran trial for diarrhea related possibly to gallbladder being out - started 09/201511/04/2015 Duodenal, gastric and colon biopsies done by Dr. Howard at [facility] = no pathological diagnosis 11/04/2015 Duodenal aspirate = 10,000 - 50,000 CFU of Viridans Strep and < 10,000 Diptheroids Dyspnea on exertion 04/01/2015 06/09/20 18 Asthma exacerbation 08/12/2014 01/10/20 18 Chronic rhinitis 10/30/2013 05/31/2018 Flank pain 03/07/2013 03/07/2018 Recurrent UTI 03/15/2011 01/17/2019 Incomplete bladder emptying 03/15/2011 02/15/2019 Chronic traumatic pain 04/08/200802/15 Overview (12/26/2017): Overview: Neck pain due to fall/fracture. C spine fusion '. High cholesterol 04/08/2008 09/02/2020 Diarrhea 05/13/2021 Encounters Date Type Department Care Team Description 09/04/2024 Orders Only [facility] - Internal Medicine [address] [place] [id number] Jen Kam, [employer] TAMPING MACHINE OPERATOR-CNA HHA 09/04/2024 Orders Only [facility] - Internal Medicine [address] [place] [address] Jen Kam, [employer] TAMPING MACHINE OPERATOR-CNA HHA 06/11/2024 12:15 PM CDT Office Visit [facility] - Vascular Surgery [address] [place] [address], [place] [address] Yudith Rodriguez MD Bilateral carotid artery stenosis (Primary Dx) 06/11/2024 11:00 AM CDT - 06/11/2024 11:59 PM CDT Hospital Encounter [facility] [address] [place] [address] Yudith Rodriguez MD Discharge Disposition: Home or Self Care 06/11/2024 Travel from Last 3 Months Immunizations Name Administration Dates Next Due INFLUENZA VACCINE, TRIV. (AF LURIA, FLUZONE TRIVALENT; 6MO+) (IIV3) 05/27/2008 COVID PFIZER BIVALENT 12Y+ 30mcg/0.3ML 02/26/2023 Covid Pfizer primary monoval ent 12+ yr 0.3mL Purple cap 07/19/2021,11/12/2020,10/20/2020,2020 DT (AGE 0-7) 2002,1992 FLU VACCINE TRI IIV3 SPLIT P F IM (FLUVIRIN) 06/09/2016 HEP B VACCINE, ADULT 3 DOSE 07/14/2022,,01/12/2022 INFLUENZA A [id number] VACCINE 08/30/2009 INFLUENZA VACCINE 05/08/2011,08/01/2010,08/30/19 10 INFLUENZA VACCINE, HIGH-DOSE , QUADR. (FLUZONE HIGH-DOSE QUADRIVALENT; 65Y+), 0.7 ML (HD-IIV4) 05/17/2022 INFLUENZA VACCINE, QUADR. (F LUZONE; FLULAVAL; FLUARIX; AFLURIA QUADRIVALENT; 6MO+), 0.5 ML (IIV4) 06/07/2021,05/25/2020,05/19/2019,2017,06/06/2017 Influenza Intradermal 07/14/2015, 014,05/07/2013,2011 PNEUMOCOCCAL PPSV23 11/05/2018,10/09/2018,2012 Pneumococcal Pcv13 Conj 01/11/2015 TD (ADULT), 5 LF TETANUS TOX OID, ADSORBED, PF 12/08/2021 TDAP (7yrs+) 05/17/2011 TDAP, HISTORIC VACCINE 02/17/2023 Zoster Hzv Vacc Recombinant Inj Im 02/26/2023, Family History Medical History Relation Name Comments CVA Brother 1 Cancer - Prostate Brother 1 Hypertension Brother 1 Other - Cardiac Brother 1 valve replac ed Parkinson's Disease Brother 1 Depression Brother 2 Hypertension Brother 2 Stroke Brother 2 Cancer Daughter 1 cervical None Known Daughter 2 None Known Daughter 3 Aneurysm, Brain Father Depression Father None Known Maternal Aunt None Known Maternal Grandfather None Known Maternal Grandmother None Known Maternal Uncle CAD (Coronary Artery Disease) Mother Cancer Mother lung Depression Mother Diabetes Mother Glaucoma Mother Hypercholesterolemia Mother Hypertension Mother Parkinson's Disease Mother Cancer Other None Known Paternal Aunt None Known Paternal Grandfather None Known Paternal Grandmother None Known Paternal Uncle Depression Sister 1 Diabetes Sister 1 Hyperlipidemia Sister 1 Hypertension Sister 1 Depression Sister 2 Hyperlipidemia Sister 2 Hypertension Sister 2 Asthma Neg Hx Cancer - Breast Neg Hx Cancer - Other Neg Hx Cancer - Ovarian Neg Hx Cancer - Skin, Melanoma Neg Hx Cancer - Skin, Non Melanoma Neg Hx Eczema Neg Hx Hemophilia Neg Hx Psoriasis Neg Hx Relation Name Status Comments Brother 1 Alive Brother 2 (Age 65) strokes Daughter 1 Alive Daughter 2 Alive Daughter 3 Alive Father (Age 78) Maternal Aunt Maternal Grandfather Maternal Grandmother Maternal Uncle Mother (Age 77) Other Paternal Aunt Paternal Grandfather Paternal Grandmother Paternal Uncle Sister 1 Alive Sister 2 Alive Social History Tobacco Use Types Packs/Day Years Used Date Smoking Tobacco: Former Cigarettes 1 30 1 976 - 2006 Smokeless Tobacco: Never Tobacco Cessation:Counseling Given: No Alcohol Use Standard Drinks/Week Comments Yes 0 (1 standard drink = 0.6 oz pur e alcohol) occ. AUDIT-C Answer Date Recorded Q1: How often do you have a drink containing alcohol? Never 02/17/2023 Q2: How many drinks containi ng alcohol do you have on a typical day when you are drinking? Patient does not drink Q3: How often do you have si x or more drinks on one occasion? Never 02/17/2023 Overall Financial Resource Strain (CARDIA) Answe r Date Recorded How hard is it for you to pa y for the very basics like food, housing, medical care, and heating? Not hard at all 02/20/2023 PHQ-2 Answer Date Recorded Patient Health Questionnaire-2 Score 0 12/05/2023 [facility] - Occupational Stress Questionnaire Answer Date Recorded Do you feel stress - tense, restless, nervous, or anxious, or unable to sleep at night because your mind is troubled all the time - these days? Only a little 02/20/2023 Hunger Vital Sign Answer Date Recorded Within the past 12 months, y ou worried that your food would run out before you got the money to buy more. Never true 02/21/20 23 Within the past 12 months, t he food you bought just didn't last and you didn't have money to get more. Never true 02/20/2023 PRAPARE - Transportation Answer Date Re corded In the past 12 months, has l ack of transportation kept you from medical appointments or from getting medications? No 02/10 In the past 12 months, has l ack of transportation kept you from meetings, work, or from getting things needed for daily living? No 02/20/2023 Housing Stability Vital Sign Answer Brendon e Recorded In the last 12 months, was t here a time when you were not able to pay the mortgage or rent on time? No 02/20/2023 In the last 12 months, how many places have you lived? 1 02/20/2023 In the last 12 months, was t here a time when you did not have a steady place to sleep or slept in a group home (including now)? No 02/20/2023 Sex and Gender Information Value Date Recorded Sex Assigned at Female 10/22/2021 5:54 AM CANE FEEDER Gender Identity Female 10/22/2021 5:54 AM CANE FEEDER Sexual Orientation Not on file Last Filed Vital Signs Vital Sign Reading Time Taken Comments Blood Pressure 149/86 06/11/2024 12:39 PM CDT Pulse 96 06/11/2024 12:39 PM CDT Temperature 36.6 ??C (97.8 ??F) 06/11/2024 12:39 PM C DT Respiratory Rate 16 02/28/2024 9:48 AM CDT Oxygen Saturation 98% 02/28/2024 9:48 AM CDT Inhaled Oxygen Concentration 25% 08/21/2022 1 2:31 PM CANE FEEDER Weight 74.4 kg (164 lb) 06/11/2024 12:39 PM CDT Height 170.2 cm (5' 7 ) 06/11/2024 12:39 PM CDT Body Mass Index 25.69 06/11/2024 12:39 PM CDT Plan of Treatment Upcoming Encounters Date Type Department Care Team (Late st Contact Info) Description 09/17/2024 3:00 PM CANE FEEDER Office Visit [facility] - Neurology [address] [place] [address], [place] [phone] Connor Higgins MD [address] [place] [address] [place] [phone] Health Maintenance Due Date Last Done Comments COLOGUARD (AGES 45-75) - COLON CA SCREENING 1956 CT COLONOGRAPHY - COLON CA SCREENING 1955 FIT - COLON CA SCREENING 1955 FLEX SIG - COLON CA SCREENING 1955 Respiratory Syncytial Virus (RSV) Vaccine Pt: or over 60 yrs (1 - Risk 60-74 years 1-dose series) 2016 PNEUMOCOCCAL VACCINE 50+ (4 of 4 - PCV20 or PCV21) 11/06/2023 11/05/2018, 10/09/2018, 01/11/2015, Additional history exists MAMMOGRAM 02/10/2024 02/09/2022, 01/13, 09/15/2020, Additional history exists DIABETES-FOOT EXAM WITH MONOFILAMENT 04/12/2024 04/12/2023, 09/10/2020, 09/15/2019, Additional history exists COVID-19 VACCINE ( season) 2024 02/26/2023, 01/27/2022, 07/19/2021, Additional history exists DIABETES-HGB A1C 06/29/2024 12/28/2023, 05/2023, 06/15/2022, Additional history exists DIABETES RETINOPATHY SCREENING 07/20/2024 07/20/2022, 06/10/2022, 07/26/2020 (Done Outside Per Patient), Additional history exists DIABETES - URINE PROTEIN SCREENING 2024 04/12/2023, 09/13/2020, 05/19/2019, Additional history exists MEDICARE AWV ? CALENDAR YEAR 2024 04/12/2023, 01/12/2022 DIABETES-SERUM CREATININE 02/12/20252023, 02/04/2024, 02/03/2024, Additional history exists COLON MONITORING 12/14/2030 12/14/2020, 11/2020, 11/04/2015, Additional history exists COLONOSCOPY - COLON CA SCREENING 12/14/2030 12/14/2020, 12/14/2020, 11/04/2015, Additional history exists Colorectal Cancer Screening 12/14/2030 DTAP/TDAP/TD VACCINES (6 - Td or Tdap) 02/17/2033 02/17/2023, 12/08/2021, 05/17/2011, Additional history exists HEPATITIS C SCREENING Completed 09/24/2013 BONE DENSITY TESTING Completed 02/09/2022 HEPATITIS B VACCINE Completed 07/14/2022, 03/23/2022, 01/12/2022 ZOSTER VACCINE Completed 02/26/2023, 12/08/2021 INFLUENZA VACCINE Completed 05/07/2024, , 06/07/2021, Additional history exists HIB VACCINE Aged Out No longer eligi ble based on patient's age to complete this topic HPV VACCINE Aged Out No longer eligi ble based on patient's age to complete this topic MENINGOCOCCAL (Group B) VACCINE Aged Out No longer eligible based on patient's age to complete this topic MENINGOCOCCAL VACCINE Aged Out No adriano anna eligible based on patient's age to complete this topic Goals Goal Patient Goal Type Associated Problems Recent Progress Patient-Stated? Author Medication Management General On track( 022 10:41 AM CDT) Namrtaa Turner, RN Note: Expected end date: ongoing Interventions: Take all medications as prescribed Let your doctor know right away about any changes in your medications Make sure to request a refill of your medication at least one week prior to your last dose Medical Devices Implanted Type Area Fighter Pilot Device Identifier Shelf Expiration Date Model / Serial / Lot Cmpnt Fem Kn Rt 5 Crcte Rtn Legion Watt Implanted:Qty: 1 on 06/04/2017 by Taiwo Pérez MD at [facility] Right: Knee [employer] 04/29/2027 [id number] Nadir Basic Amrit Excludes Agc Kn Implanted:Qty: 1 on 06/04/2017 by Taiwo Pérez MD at [facility] [employer] BILL ONLY BASIC AMRIT EXCLUDES AGC KN SNOR / / Stem Tib 55mm 18mm Prfx Mtphsl Kn Implanted:Qty: 1 on 06/04/2017 by Taiwo Pérez MD at [facility] Right: Knee [employer] 04/13/2027 [id number] / / [id number] Ins Tib 3-4 9mm Kn Xlpe Dsh Legion Implanted:Qty: 1 on 06/04/2017 by Taiwo Pérez MD at [facility] Right: Knee [employer] 11/14/2026 [id number] / / [id number] Bsplt Tib Legion 3 Kn Rt Watt Por Implanted:Qty: 1 on 06/04/2017 by Taiwo Pérez MD at [facility] Right: Knee [employer] 11/05/2026 [id number] / / [id number] Screw Bsplt 15mm 6.5mm Gns2 Kn Tib Por Implanted:Qty: 1 on 06/04/2017 by Taiwo Pérez MD at [facility] Right: Knee [employer] 11/20/2026 [id number] / / [id number] Screw Bsplt 30mm 6.5mm Gns2 Kn Tib Por Implanted:Qty: 1 on 06/04/2017 by Taiwo Pérez MD at [facility] Right: Knee [employer] 09/25/2026 [id number] / / [id number] Screw Bsplt 20mm 6.5mm Gns2 Kn Tib Por Implanted:Qty: 1 on 06/04/2017 by Taiwo Pérez MD at [facility] Right: Knee [employer] 04/16/2027 [id number] / / [id number] Screw Bsplt 30mm 6.5mm Gns2 Kn Tib Por Implanted:Qty: 1 on 06/04/2017 by Taiwo Pérez MD at [facility] Right: Knee [employer] 04/16/2027 [id number] / / [id number] [employer] [place] W/Dynacord Implanted:Qty: 1 on 02/05/2019 by Bryn Rose MD at [facility] Right: Shoulder 05/12/2021 [id number] / / [id number] Description:ab [employer] [place] W/Dynacord Implanted:Qty: 1 on 02/05/2019 by Bryn Rose MD at [facility] Right: Shoulder 10/10/2021 [id number] / / [id number] Description:ab [place] 5.5 Healix Adv Knt Br Implanted:Qty: 1 on 02/05/2019 by Bryn Rose MD at [facility] Right: Shoulder 01/10/2021 [id number] / / [id number] Description:ab HEALIX ADVANCE KNOTLESS BR ANCHOR [place] 5.5 Healix Adv Knt Br Implanted:Qty: 2 on 02/05/2019 by Bryn Rose MD at [facility] Right: Shoulder 03/12/2021 [id number] / / [id number] Description:ab HEALIX ADVANCE KNOTLESS BR ANCHOR Graft Tissue Allom[employer] Aclr Drml Mtrx 8x4 Implanted:Qty: 1 on 02/05/2019 by Bryn Rose MD at [facility] Right: Shoulder [employer] 09/21/2020 [id number] / / [id number] Description:ab [place] 6.5 Healix Adv Knt Br Implanted:Qty: 2 on 02/05/2019 by Bryn Rose MD at [facility] Right: Shoulder 10/10/2021 [id number] / / [id number] Description:HEALIX ADVANCE K NOTLESS BR ANCHOR [employer] Hydrophobic Acrylic Intraocular Lens Implanted:Qty: 1 on 06/07/2022 by Mery Patel MD at [facility] Left: Eye [employer] 01/10/2025 [id number] 20.0 / [id number] / [id number] [employer] Implanted:Qty: 1 on 06/21/2022 by Mery Patel MD at [facility] Right: Eye 09/12/2024 MX60E 20.00 / [id number] / [id number] Patch Cv 6x1cm Vsgrd Bvn Pricrd Strl Implanted:Qty: 1 on 08/18/2022 by Yudith Rodriguez MD at [facility] Right: Carotid [employer] 09/01/2026 [id number] / / [id number] Explanted Type Area Fighter Pilot Device Identifier Shelf Expiration Date Model / Serial / Lot Screw Bsplt 25mm 6.5mm Gns2 Kn Tib Por Explanted:Qty: 1 on 06/04/2017 by Taiwo Pérez MD at [facility] Right: Knee [employer] 04/16/2027 [id number] / / [id number] Procedures Procedure Name Priority Date/Time Associated Diagnosis Comments VAS CAROTID DUPLEX BILATERAL Routine 06/11/2024 12:23 PM CDT Bilateral carotid artery stenosis BASIC METABOLIC PANEL (CALCIUM TOTAL) Routine 02/13/2024 11:02 AM CDT Hypokalemia HEMOGLOBIN A1C Routine 12/28/2023 1:51 AM CDT Type 2 diabetes mellitus with hyperglycemia, without long-term current use of insulin (HCC) MICROALB/CREAT RATIO URINE RANDOM PANEL Routine 04/12/2023 1:25 PM CDT Type 2 diabetes mellitus with hyperglycemia, without long-term current use of insulin (HCC) DEXA BONE DENSITY AXIAL SKELETON Routine 02/09/2022 8:20 AM CDT Ovarian failure MAMMO BILAT SCREENING W SILVER Routine 02/09/2022 7:59 AM CDT Breast cancer screening by mammogram ENDOSCOPY, COLON, SCREENING Routine 12/14/2020 9:12 AM CDT MT 3 COMP FOOT EXAM COMPLETED Routine 03/07/2018 Breast cancer screening EYE EXAM 12/18/2017 8:38 AM CDT HEPATITIS C ANTIBODY Routine 09/24/2013 1:23 PM CANE FEEDER from Last 3 Months or Most Recently Relevant to Health Maintenance Results * VAS Carotid Duplex Bilateral (06/11/2024 12:23 PM CDT) Anatomical Region Laterality Modality Neck Intravascular Ul trasound 06/11/2024 11:3 3 AM CDT Narrative Procedure Note Dionte Alan MD - 06/11/2024 Yudith Rodriguez MD VASCULAR LAB ORDERA BLES * (ABNORMAL) BASIC METABOLIC PANEL (CALCIUM TOTAL) (02/13/2024 11:02 AM CDT) BUN 12 7 - 26 mg/dL 02/13/2024 12:47 PM [facility] Creatinine 0.74 0.56 - 0.96 mg/dL 02/13/2024 12:47 PM [facility] Sodium 146(H) 136 - 145 mmol/L 02/13/2024 12:47 PM [facility] Potassium 3.0(L) 3.5 - 4.5 mmol/L 02/13/2024 12:47 PM [facility] Chloride 107 98 - 107 mmol/L 02/13/2024 12:47 PM [facility] CO2 28 22 - 29 mmol/L 02/13/2024 12:47 PM [facility] Glucose 126(H) 70 - 115 mg/dL 02/13/2024 12:47 PM [facility] Calcium 9.5 8.4 - 10.2 mg/dL 02/13/2024 12:47 PM [facility] Anion Gap 11 6 - 16 02/13/2024 12:47 PM [facility] BUN/Creatinine Ratio 16 7 - 23 02/13/2024 12:47 PM [facility] Osmolality Calculated 303(H) 275 - 295 mOsm/kg 02/13/2024 12:47 PM [facility] eGFR by CKD-EPI 89(L) >=90 mL/min/1.7 3 m2 02/13/2024 12:47 PM [facility] Blood BLOOD SPECIMEN / Unknown Lab Venipuncture / Unknown 02/13/2024 11:02 AM CDT 02/13/2024 12:20 PM CDT Silviano York III, MD LAB - CHEMISTRY O RDERABLES [facility] [address] [place] [id number], [facility] [phone] * (ABNORMAL) HEMOGLOBIN A1C (12/28/2023 1:51 AM CDT) Hemoglobin A1c 7.0(H) <5.7 % 12/28/2023 3:11 AM CDT [facility] Estimated Average Glucose 154 mg/dL 12/28/2023 3:11 AM CDT [facility] Blood BLOOD SPECIMEN / Unknown Lab Venipuncture / Unknown 12/28/2023 1:51 AM CDT 12/28/2023 2:58 AM CDT [facility] - 12/28/2023 3:11 AM CDT HbA1c Interpretation: Normal: < 5.7% Pre-diabetes: 5.7-6.4% Diabetes: Equal to or greater than 6.5% Test results diagnostic of diabetes should be repeated for confirmation. Treatment target values recommended by ADA and other clinical organizations should be used to evaluate metabolic control in patients. This test should not replace glucose testing for patients with Type 1 diabetes, pediatric patients, or women. ??Falsely low HbA1c results may be observed in patients with clinical conditions that shorten erythrocyte life span or decrease mean erythrocyte age such as the presence of unstable hemoglobin variants, elevated hemoglobin F level or other causes of hemolytic anemia. ??HbA1c may not accurately reflect glycemic control when clinical conditions that affect erythrocyte survival are present. ??Severe Iron deficiency anemia may yield falsely high results. ??Hemoglobin A1c assay should not be used to diagnose or monitor diabetes in patients with malignancy, recent blood transfusion, chronic kidney or liver disease. ?? This method may yield falsely low results when hemoglobin (HbF) exceeds 5% in the specimen. The Barber Alinity assay for the measurement of HbA1c is a National Glycohemoglobin Standardization Program (NGSP) certified method. Lisa Matthews ASPHALT TAMPING MACHINE OPERATOR-CNA HHA LAB - CH EMISTRY ORDERABLES [facility] [address] [id number] * MICROALB/CREAT RATIO URINE RANDOM PANEL (04/12/2023 1:25 PM CDT) Creatinine Urine 94.8 Not Estab. mg/dL [facility] INSURANCE BILL Microalbumin Urine 5.7 Not Estab. ug/mL [facility] INSURANCE BILL Microalbumin/Crea tinine Ratio 6 0 - 29 mg/g creat [facility] INSURANCE BILL Comment: ?Normal: ?0 - ??29 ?Moderately increased: 30 - 300 ?Severely increased: ? >300 Urine URINE SPECIMEN OBTAINED BY CLEAN CATCH PROCEDURE / Unknown 04/12/2023 1:25 PM CDT 04/12/2023 Narrative Resulting Agency Comment Lab Testing performed at: [employer] [address] ??[facility] [phone] Jen Kam ASPHALT TAMPING MACHINE OPERATOR-CNA HHA LAB - URINE CH EMISTRY ORDERABLES [facility] INSURANCE BILL [address] [place] [address] * BONE DENSITY AXIAL SKELETON(1OR MORE SITES)[id number] (02/09/2022 8:20 AM CDT) Anatomical Region Laterality Modality Other 02/09/2022 4:19 PM CDT Narrative 02/09/2022 4:48 PM CDT Examination: Dual energy x-ray absorptiometry of the left hip. Clinical Indication: E28.39: Ovarian failure Technique: Detailed data from the exam is sent separately to the ordering physician and is also available on [employer], the Radiology Department's computerized picture archive system. Patient's height 67 in; weight 167 lb. Comparison: DEXA on 06/25/2007. FINDINGS: BONE MINERAL DENSITY (BMD) left femoral neck: Normal; T-score -0.3, previously -0.5 FRAX 10 year fracture risk was not reported because T score for hip total, femoral neck at or above -1.0. Definitions: T-score = Standard Deviation Normal: A value for bone mineral density(BMD) within 1 standard deviation of the young adult reference mean. (T-score above -1) Low bone mass(osteopenia): A value for bone mineral density(BMD) more than 1 standard deviation below the young adult mean, but less than 2.5 standard deviations below the young adult mean. ( T-score between -1 and -2.5) Osteoporosis: A value for bone mineral density 2.5 standard deviations or more below the young adult mean. ( T-score at or below -2.5) Severe osteoporosis: Osteoporosis + the presence of one or more fragility fractures. Please note that T-score values are important in determining increased risk for fractures. The T-score represents the standard deviation above or below the mean bone mineral density for young adults. With each -1 standard deviation decrease in bone mineral density, the risk for fracture doubles exponentially. A T-score of -1 will double the risk , and -2 will be 4 times the risk. As a rule of thumb, a T-score of -1 to -2.5 indicates increasing degrees of osteopenia. This report was approved ??by Ravin Peralta ?? on 02/09/2022 4:23 PM . I, Dr. ERON HOYOS D.O. have personally reviewed and interpreted this examination/study. This report was electronically signed by ERON HOYOS D.O. ??on 02/09/2022 4:48 PM . Procedure Note Eron Hoyos, DO - 02/09/2022 Examination: Dual energy x-ray absorptiometry of the left hip. Clinical Indication: E28.39: Ovarian failure Technique: Detailed data from the exam is sent separately to theordering physician and is also available on [employer], the Radiology Department's computerized picture archive system. Patient's height 67 in; weight 167 lb. Comparison: DEXA on 06/25/2007. FINDINGS: BONE MINERAL DENSITY (BMD) left femoral neck: Normal; T-score -0.3, previously -0.5 FRAX 10 year fracture risk was not reported because T score for hiptotal, femoral neck at or above -1.0. Definitions: T-score = Standard Deviation Normal: A value for bone mineral density(BMD) within 1 standarddeviation of the young adult reference mean. (T-score above -1) Low bone mass(osteopenia): A value for bone mineral density(BMD) morethan 1 standard deviation below the young adult mean, but less than 2.5 standard deviations below the young adult mean. ( T-score between -1 and -2.5) Osteoporosis: A value for bone mineral density 2.5 standard deviationsor more below the young adult mean. ( T-score at or below -2.5) Severe osteoporosis: Osteoporosis + the presence of one or morefragility fractures. Please note that T-score values are important in determining increased risk for fractures. The T-score represents the standard deviation aboveor below the mean bone mineral density for young adults. With each -1 standard deviation decrease in bone mineral density, the risk forfracture doubles exponentially. A T-score of -1 will double the risk , and -2will be 4 times the risk. As a rule of thumb, a T-score of -1 to -2.5indicates increasing degrees of osteopenia. This report was approved by Ravin Peralta on 02/09/2022 4:[address] ERON Stevenson D.O. have personally reviewed and interpreted this examination/study. This report was electronically signed by ERON HOYOS D.O. on02/09/2022 4:48 PM . eJn Kam ASPHALT TAMPING MACHINE OPERATOR-CNA HHA DEXA ORDERABLE S * MAMMO BILAT SCREENING W SILVER (02/09/2022 7:59 AM CDT) Anatomical Region Laterality Modality Breast Bilateral Mammography 02/09/2022 10:3 9 AM CDT Impressions 02/09/2022 11:22 AM CDT IMPRESSION: ??Benign mammogram, without evidence of malignancy. RECOMMENDATION: ??Screening mammography in one year, pending no interval breast concerns. Patient will be notified of the results by lay letter. OVERALL ASSESSMENT: ??BI-RADS CATEGORY 2: BENIGN. Report dictated by Ronny Braxton MD (transporter radiology) Zeferino Molina MD (resident) assisted in the interpretation of this exam. Dr. MARGIE Stevenson M.D. have personally reviewed and interpreted this examination/study. This report was electronically signed by MARGIE DOMINGUEZ M.D. ??on 02/09/2022 11:22 AM . Narrative 02/09/2022 11:22 AM CDT EXAMINATION: DIGITAL MAMMO BILAT SCREENING W SILVER AND WITH CAD DATE OF EXAM: ??02/09/2022 8:19 AM HISTORY: ??Screening. RISK ASSESSMENT CALCULATION: Patient completed a breast cancer risk assessment during her appointment. Based upon the information she provided and her mammographic breast density, her lifetime risk of developing breast cancer is 9 % (Average Risk <15%; Intermediate / Moderate Risk 15-19%; High Risk > 20%). COMPARISON: Prior breast imaging studies back to 03/15/2018, with the most recent dated 09/15/2020 and 07/30/2019 from [facility]. TECHNIQUE: ??Tomosynthesis (3-D) and reconstructed synthetic 2-D ??images acquired and reviewed in the bilateral craniocaudal and mediolateral oblique projections. A total of 5 images were obtained. Computer-aided detection (CAD) was utilized. BREAST PARENCHYMAL COMPOSITION: Category B: There are scattered areas of fibroglandular density. FINDINGS: There are no suspicious findings or evidence of malignancy on mammography. Scattered vascular calcifications are seen ??There is no significant change from the prior. Jen Cesar Eddy ASPHALT TAMPING MACHINE OPERATOR-CNA HHA MAMMO ORDERABL ES * ENDOSCOPY, COLON, SCREENING (12/14/2020 9:12 AM CDT) Report Endoscopy POC Endoscopy Department Report _ Patient Name: Ivonne Santos ? Procedure Date: 12/14/2020 9:12 AM ? Date of : 1955 Classification: Outpatient ?Gender: Female Ethnicity: Not or ? Race: White _ Providers: ?Terrell Quijano MD Referring MD: ? Erica Reno (Referring ) Procedure: ?Colonoscopy Indications: ?Surveillance: Personal history of adenomatous ?polyps on last colonoscopy 5 years ago Medications: ?Monitored Anesthesia Care Description of Procedure: Pre-Anesthesia Assessment: ?- Prior to the procedure, a History and Physical ?was performed, and patient medications and ?allergies were reviewed. The patient's tolerance of ?previous anesthesia was also reviewed. The risks ?and benefits of the procedure and the sedation ?options and risks were discussed with the patient. ?All questions were answered, and informed consent ?was obtained. Prior Anticoagulants: The patient has ?taken no previous anticoagulant or antiplatelet ?agents. ASA Grade Assessment: II - A patient with ?mild systemic disease. After reviewing the risks ?and benefits, the patient was deemed in ?satisfactory condition to undergo the procedure. ?After I obtained informed consent, the scope was ?passed under direct vision. Throughout the ?procedure, the patient's blood pressure, pulse, and ?oxygen saturations were monitored continuously. The ?[id number] was introduced through the anus and ?advanced to the ascending colon. The colonoscopy ?was technically difficult and complex due to ?significant looping. Successful completion of the ?procedure was aided by applying abdominal pressure. ?The patient tolerated the procedure well. The ?quality of the bowel preparation was adequate. The ?rectum was photographed. ? Findings: ? A 3 mm polyp was found in the recto-sigmoid colon. The polyp was ? sessile. The polyp was removed with a jumbo cold forceps. An adjacent ? hyperplastic appearing polp was removed and placed in the same jar. ? Resection and retrieval were complete. Verification of patient ? identification for the specimen was done by the nurse using the ? patient's name and date. Estimated blood loss was minimal. ? The exam was otherwise without abnormality on direct and retroflexion ? views to the ascending colon. ? Estimated Blood Loss: ? Estimated blood loss was minimal. Complications: ?No immediate complications. Impression: ? - No specimens collected. Recommendation: ? - Patient has a contact number available for ?emergencies. The signs and symptoms of potential ?delayed complications were discussed with the ?patient. Return to normal activities tomorrow. ?Written discharge instructions were provided to the ?patient. ?- Resume previous diet. ?- Continue present medications. ?- Await pathology results. ?- Repeat colonoscopy in 5 years for surveillance. ?- Return to GI clinic as previously scheduled. ? Attending Participation: ??I personally performed the entire procedure. ? Procedure Code(s): ? --- Professional --- ? 90362, 52, Colonoscopy, flexible; with biopsy, single or multiple Diagnosis Code(s): ?--- Professional --- ?Z86.010, Personal history of colonic polyps CPT copyright 2019 [employer]. All rights reserved. The codes documented in this report are preliminary and upon supervisor hardboard review may be revised to meet current compliance requirements. Terrell Quijano MD 12/14/2020 10:40:50 AM This report has been signed electronically. Note Initiated On: 12/14/2020 9:12 AM Number of Addenda: 0 ? [facility] ? [address] PROVATION 12/14/2020 9:12 AM CDT Terrell MARTEU RE ORDERABLES Performing Organization Address [facility] Co de Phone Number [facility] PROVATION * MT 3 COMP FOOT EXAM COMPLETED (Automatically Completed) (03/07/2018) Narrative Erica Reno, ASPHALT TAMPING MACHINE OPERATOR-CNA HHA - 03/07/2018 left and right foot/feet examined with shoes and socks removed. Visual inspection was normal. Sensory exam with monofilament was ??normal. Dorsal pedal and posterior tibial pulses were normal. Erica Reno ASPHALT TAMPING MACHINE OPERATOR-CNA HHA MT - PROFES SIONAL SERVICES * EYE EXAM (12/18/2017 8:38 AM CDT) Anatomical Region Laterality Modality Other Narrative 12/18/2017 8:38 AM CDT Ordered by an unspecified provider. Scanned Document SCANNING ONLY * HEPATITIS C ANTIBODY (09/24/2013 1:23 PM CANE FEEDER) Hepatitis C Antibody NONREACTIVE NONREACTIVE [facility] Comment: Anti-HCV screen indicates no serologic evidence of past or current infection with Hepatitis C Virus. Patients with unexplained liver disease who are immunocompromised or suspected of having acute Hepatitis C infection may benefit from Nucleic Acid Test (CHASE) for Hepatitis C Viral RNA to confirm Hepatitis C status. 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 Adv Directive/Living Will/POA 02/23/2023 10:16 AM Adv Directive/Living Will/POA 06/11/2017 11:25 PM Advance Directives and Livin g Will 06/05/2016 12:00 AM Advance Directives and Livin g Will 09/05/2013 12:00 AM Adv Directive/Living Will/POA 07/19/2011 1:36 PM * Full Code (Latest Code Status on File) Date Activated Date Inactivated Comments 02/02/2024 2:11 PM 02/05/2024 6:17 PM * Full Code Date Activated Date Inactivated Comments 12/27/2023 8:25 AM 12/29/2023 2:47 PM * Full Code Date Activated Date Inactivated Comments 02/17/2023 11:05 PM 02/22/2023 5:07 PM * Full Code Date Activated Date Inactivated Comments 08/18/2022 3:06 PM 08/25/2022 4:57 PM * Full Code Date Activated Date Inactivated Comments 04/12/2022 10:20 AM 04/12/2022 3:52 PM Care Teams Pharmacy Buyer Relationship Specialty Start Date End Date Jen Kam, ASPHALT TAMPING MACHINE OPERATOR-CNA HHA [address] [place] [phone] PCP - General Nurse Practitioner 11/09/21 Jose Elias Samaniego, RN 06/04/17 Pedro Cordero MD [address] [facility] [address] [place] [address] Cardiology 01/14/22 Abigail Thibodeaux MD [address] [place] [address] Psychiatry 01/14/22 Alen Cox MD [address] [facility] [address], [facility] [place] [address] Urology 01/14/22 Mindy Salgado, PAHodaC [address] [facility] [address] [place] [phone] Physician Chief Psychology Gastroenterology 01/14/22 Connor Higgins MD [address] [facility] [address] [place] [phone] Neurology 01/14/22
--- OUTSIDE RECORDS SUMMARY | 2024-09-04 18:30 | XMS_ITS | Patient Health Summary ---
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 This disclosure is being madepursuant to the Care Everywhere program and may not contain all information available regarding this patient. Last updated 18.[facility] Allergies * Adhesive Sensitivity(Rash,Itching) -Medium Criticality * Cephalexin(Anaphylaxis,Shortness of Breath,Rash) -High Criticality * Chlorthalidone(Rash) -Medium Criticality * Ciprofloxacin(Nausea and/or Vomiting,Headache) -Medium Criticality * Fentanyl(Anaphylaxis) -High Criticality * Ibuprofen(Rash,Renal Injury) -High Criticality * Levofloxacin(Urticaria,Rash) -Medium Criticality * Metformin(Diarrhea) * Methadone(Nausea and/or Vomiting,Palpitations,Psychiatric) -Medium Criticality * Morphine(Urticaria,Rash,Itching) -High Criticality * Opioids - Morphine Analogues [Other](Rash) -Medium Criticality * Penicillins(Anaphylaxis) -High Criticality * Sulfa Drugs(Urticaria,Rash) -High Criticality * Vancomycin(GI Discomfort,Nausea and/or Vomiting) -Low Criticality * Ciprofloxacin(Urticaria,Nausea and/or Vomiting) -Medium Criticality,Inactive * Contrast-Iodinated Agents For Ct/Other(Other) -Medium Criticality,Inactive * Red Dye(Other),Inactive * Fentanyl And Related(Anaphylaxis) -High Criticality,Inactive * Penicillin G(Anaphylaxis) -High Criticality,Inactive * Trazodone(Other) -Low Criticality,Inactive * Vancomycin(Nausea and/or Vomiting),Inactive Medications * Be aware that medications may not be up to date on this document. Alwaysverify current medications with the patient. * Multiple Vitamin (MULTI-VITAMINS) TABS Take 1 (one) tablet by mouth once daily * ezetimibe (ZETIA) 10 MG tablet(Started 01/25/2021) Take 1 (one) tablet by mouth once daily 11 refills by 01/25/2022 * albuterol HFA (VENTOLIN HFA) 108 (90 Base) MCG/ACT inhaler(Started 03/07/2022) Inhale 2 (two) puffs by mouth every 4 hours as needed 5 refills by 03/07/2023 * aspirin (Aspirin) 81 MG chew tablet Take 1 (one) tablet by mouth once daily * famotidine (Pepcid) 40 MG tablet(Started 03/07/2022) Take 1 (one) tablet by mouth once daily * cyanocobalamin 100 MCG tablet Take 1 (one) tablet by mouth once daily * Cholecalciferol 25 MCG (1000 UT) Take 1 (one) tablet by mouth once daily * atorvastatin (Lipitor) 80 MG tablet Take 1 (one) tablet by mouth once daily * omeprazole (PriLOSEC) 20 MG capsule(Started 04/06/2023) * Blood Glucose Monitoring Suppl (ONE TOUCH ULTRA 2) w/Device KIT(Started 05/02/2023) * pramipexole (Mirapex) 1 MG tablet(Started 05/23/2023) Take 1 (one) tablet by mouth 3 times daily 5 refills by 05/22/2024 * carbidopa-levodopa (Sinemet) 25-100 MG tablet(Started 05/23/2023) Take 1 (one) tablet by mouth 3 times daily 5 refills by 05/22/2024 * blood glucose test strip(Started 06/11/2023) Use as directed. Please dispense One Touch Ultra Test Strips * acetaminophen (Tylenol) 325 MG tablet(Started 06/20/2023) TAKE 2 TABLETS BY MOUTH EVERY 6 HOURS NEEDED FOR PAIN..MAX OF 4GM OF APAP/24HOURS 3 refills by 06/19/2024 * BD AutoShield Duo 30G X 5 MM MISC(Started 07/16/2023) PEN NEEDLE USED FOR SUB-Q INJECTION 4 refills by 07/15/2024 * Easy Touch Lancets 30G MISC(Started 09/05/2023) * gabapentin (Neurontin) 400 MG capsule(Started 09/18/2023) Take 1 (one) capsule by mouth 3 times daily 11 refills by 09/17/2024 * metoprolol succinate XL 24hr (Toprol XL) 100 MG tablet(Started 11/02/2023) Take 1 (one) tablet by mouth once daily 11 refills by 11/01/2024 * estradiol (Estrace) 0.1 MG/GM vaginal cream(Started 11/28/2023) Insert 2 g into the vagina once daily 11 refills by 11/27/2024 * ascorbic acid (Vitamin C) 500 MG tablet(Started 11/28/2023) Take 1 (one) tablet by mouth 2 times daily 3 refills by 11/27/2024 * clonazePAM (KlonoPIN) 0.5 MG tablet(Started 12/05/2023) Take one tab in the morning and one tab at 4 pm for anxiety. Reasons: Agitation, Feeling Anxious 2 refills by 06/02/2024 * lamoTRIgine (LaMICtal) 100 MG tablet(Started 12/05/2023) Take 2 (two) tablets by mouth at bedtime AND 1 (one) tablet every morning. Reasons: Manic-Depression. 3 refills by 12/04/2024 * lurasidone (Latuda) 60 MG tablet(Started 12/05/2023) Take 1 (one) tablet by mouth daily with breakfast 2 refills by 12/04/2024 * zolpidem CR (Ambien CR) 12.5 MG tablet(Started 12/05/2023) Take 1 (one) tablet by mouth nightly as needed for Insomnia Reasons: Trouble Sleeping 2 refills by 06/02/2024 * Pimavanserin Tartrate (Nuplazid) 34 MG CAPS(Started 12/05/2023) Take 1 (one) capsule by mouth once daily 2 refills by 12/04/2024 * lisinopril (Prinivil; Zestril) 20 MG tablet(Started 01/01/2024) Take 1 (one) tablet by mouth once daily * diclofenac sodium (Voltaren) 1 % gel(Started 01/03/2024) Apply 2 (two) g to affected area 4 times daily as needed 1 refill by 01/02/2025 * saline nasal spray ([place]; Baby [place]) 0.65 % nasal spray(Started 02/05/2024) Conifer 1 (one) spray into each nostril every 2 hours as needed for Dry Nose * potassium chloride ER (Klor-Con M) 20 MEQ tablet(Started 02/15/2024) Take 2 (two) tablets by mouth once daily 2 refills by 02/14/2025 * Basaglar KwikPen (Basaglar) pen(Started 02/25/2024) Inject 28 (twenty eight) Units subcutaneously at bedtime 11 refills by 02/24/2025 * amLODIPine (Norvasc) 10 MG tablet(Started 02/05/2024) TAKE ONE TABLET BY MOUTH ONCE DAILY * phenazopyridine (Pyridium) 200 MG tablet(Started 05/06/2024) TAKE 1 TABLET (=200MG) BY MOUTH 3 TIMES A DAY FOR PAINFUL URINATION Ended Medications* fluconazole (DIFLUCAN) 150 MG tablet(Started 12/18/2018) (Discontinued) Take 1 tablet by mouth once for 1 dose * cefpodoxime (VANTIN) 200 MG tablet(Started 05/30/2019)(Discontinued) Take 1 tablet by mouth every 12 hours for 5 days * fluconazole (DIFLUCAN) 150 MG tablet(Started 06/02/2019)(Discontinued) Take 1 tablet by mouth once for 1 dose * cefpodoxime (VANTIN) 200 MG tablet(Started 04/11/2021)(Discontinued) Take 1 (one) tablet by mouth 2 times daily for 5 days Reasons: Complicated Urinary Tract Infection,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 that pt can take cefpodoxime, [facility] * fluconazole (DIFLUCAN) 150 MG tablet(Started 05/18/2021)(Discontinued) Take 1 (one) tablet by mouth once for 1 dose May repeat x 1 1 refill by 05/18/2022 * cefpodoxime (VANTIN) 200 MG tablet(Started 07/05/2021)(Discontinued) Take 1 (one) tablet by mouth every 12 hours for 14 days * cefpodoxime (VANTIN) 100 MG tablet(Started 01/16/2022)(Discontinued) Take 1 (one) tablet by mouth every 12 hours for 7 days * fluconazole (Diflucan) 150 MG tablet(Started 05/25/2022)(Discontinued) Take 1 (one) tablet by mouth once for 1 dose May repeat dose in 5 days * atropine 1 % ophthalmic solution(Started 12/26/2023)(Discontinued) Dissolve 1 (one) drop under the tongue 2 times daily * calcium carbonate (Tums) 500 MG chew tablet(Started 02/05/2024)(Discontinued) Take 2 (two) tablets by mouth every 4 hours as needed for Heartburn * fluconazole (Diflucan) 200 MG tablet(Started 12/29/2023)(Discontinued) TAKE 4 TABLETS BY MOUTH EVERY DAY FOR 2 DAYS * nystatin (Mycostatin) 417032 UNIT/ML suspension(Started 02/19/2024) (Discontinued) * furosemide (Lasix) 20 MG tablet(Started 04/11/2024)(Discontinued) TAKE 1 TABLET (=20MG) BY MOUTH EVERY DAY FOR FLUID RETENTION X 5 DAYS * nitrofurantoin macrocrystal (Macrodantin) 100 MG capsule(Started 04/23/2024) (Discontinued) Take 1 (one) capsule by mouth * methenamine hippurate (Hiprex) 1 GM tablet(Started 04/18/2024)(Discontinued) TAKE 1 TABLET (=1GRAM) BY MOUTH TWICE A DAY FOR URINARY TRACT INFECTION X 5 DAYS Active Problems Problem Noted Date Diagnosed Date Ecchymosis 02/02/2024 Encephalopathy 02/02/2024 Leg edema, left 06/29/2023 Skin lump of leg, right 06/29/2023 Laceration of left femoral artery 03/16/2023 Fall, initial encounter 02/17/2023 History of Parkinson's disease 02/17/2023 Injury of left common femoral artery, initial en counter 02/17/2023 Chronic bronchitis, unspecified chronic bronchit is type 11/24/2022 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 TIA (transient ischemic attack) 11/17/2022 Pseudophakia 06/27/2022 Primary angle closure glaucoma of both eyes, mil d stage 06/08/2022 Facial droop 04/12/2022 Atrial fibrillation 04/12/2022 Osteopenia of neck of femur 02/10/2022 Gross hematuria 11/18/2021 Atrial flutter 06/30/2021 Urinary tract infection without hematuria 2020 Rash and other nonspecific skin eruption 021 Angular cheilitis 02/18/2021 Solar aging of skin 02/18/2021 Type 2 diabetes mellitus wit h hyperglycemia, without long-term current use of insulin 11/16/2020 Swelling of lower extremity 11/16/2020 Heart palpitations 11/16/2020 Mixed hyperlipidemia 09/02/2020 Diabetes mellitus type 2, controlled 09/15/2019 Carotid stenosis, right 09/11/2019 Gait instability 05/26/2019 History of penicillin allergy 11/05/2018 Mild intermittent asthma without complication Itchy eyes 11/05/2018 Recurrent UTI 10/09/2018 LVH (left ventricular hypert rophy) due to hypertensive disease, without heart failure 06/30/2018 Diastolic dysfunction without heart failure 06/13 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 06/25/2018 Recurrent falls while walking 06/17/2018 Rotator cuff disorder 06/17/2018 Non-allergic rhinitis 06/11/2018 Vocal cord dysfunction 06/09/2018 HARSH (obstructive sleep apnea) 07/24/2016 Nonalcoholic fatty liver disease 07/11/2016 Female hypogonadism 06/24/2016 Bipolar 2 disorder 01/15/2016 Glaucoma of both eyes 10/15/2015 Type 2 diabetes mellitus with hyperglycemia 10/2014 Essential hypertension 01/11/2015 Anxiety state 05/04/2014 T12 compression fracture 09/09/2013 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 Parkinson's disease without dyskinesia or fluctuating manifestations 06/04/2013 Coronary artery disease invo [place]ving [place] coronary artery of [place] heart 11/04/2012 Urge incontinence 03/15/2011 Rectocele 03/15/2011 Irritable bowel disease 03/15/2011 Cystocele 03/15/2011 Hypokalemia 12/12/2010 Colon adenomas 10/27/2010 Restless legs 08/18/2009 GERD (gastroesophageal reflux disease) 8 Resolved Problems Problem Noted Date Diagnosed Date Resolved Date Urinary tract infection with hematuria, site unspecified 12/26/2023 02/02/2024 Pyelonephritis 05/31/2021 06/07/2021 Chest tightness 05/10/2021 05/13/2021 Flank pain 05/10/2021 05/13/2021 Benzodiazepine withdrawal wi thout complication 11/05/2018 02/15/2019 Multiple drug allergies 06/09/2018 0701/2019 Recurrent nephrolithiasis 12/26/2017 Primary osteoarthritis of right knee 06/04/2017 03/07/2018 UTI (urinary tract infection) 05/10/2017 05/27/2017 LUZ (acute kidney injury) 02/05/2017 Surgical menopause 06/24/2016 8 Insomnia due to medical condition 06/24/2016 03/07/2018 Hypnopompic hallucination 06/24/2016 Hypersomnia due to medical condition 06/24/2016 03/07/2018 Cataplexy 06/24/2016 02/15/2019 History of head injury 06/24/201606/09 Rectal bleeding 04/06/2016 02/15/2019 Bloating 11/15/2015 03/07/2018 Dyspnea on exertion 04/01/2015 06/09/20 18 Asthma exacerbation 08/12/2014 01/10/20 18 Chronic rhinitis 10/30/2013 05/31/2018 Flank pain 03/07/2013 03/07/2018 Recurrent UTI 03/15/2011 01/17/2019 Incomplete bladder emptying 03/15/2011 02/15/2019 Chronic traumatic pain 04/08/200802/15 High cholesterol 04/08/2008 09/02/2020 Diarrhea 05/13/2021 Immunizations * INFLUENZA VACCINE, TRIV. (AFLURIA, FLUZONE TRIVALENT; 6MO+) (IIV3)(Given 05/27/2008) * COVID PFIZER BIVALENT 12Y+ 30mcg/0.3ML(Given 02/26/2023) * Covid Pfizer primary monovalent 12+ yr 0.3mL Purple cap(Given 07/19/2021, 11/12/2020, 10/20/2020, 09/24/2020) * DT (AGE 0-7)(Given 2002, 1992) * FLU VACCINE TRI IIV3 SPLIT PF IM (FLUVIRIN)(Given 06/09/2016) * HEP B VACCINE, ADULT 3 DOSE(Given 07/14/2022, 03/23/2022, 01/12/2022) * INFLUENZA A K5K6-18 VACCINE(Given 08/30/2009) * INFLUENZA VACCINE(Given 05/08/2011, 08/01/2010, 08/30/2009) * INFLUENZA VACCINE, HIGH-DOSE, QUADR. (FLUZONE HIGH-DOSE QUADRIVALENT; 65Y+), 0.7 ML (HD-IIV4)(Given 05/17/2022) * INFLUENZA VACCINE, QUADR. (FLUZONE; FLULAVAL; FLUARIX; AFLURIA QUADRIVALENT; 6MO+), 0.5 ML (IIV4)(Given 06/07/2021, 05/25/2020, 05/19/2019, 05/08/2018, 06/06/2017) * Influenza Intradermal(Given 07/14/2015, 05/20/2014, 05/07/2013, 06/03/2012) * PNEUMOCOCCAL PPSV23(Given 11/05/2018, 10/09/2018, 03/09/2013) * Pneumococcal Pcv13 Conj(Given 01/11/2015) * TD (ADULT), 5 LF TETANUS TOXOID, ADSORBED, PF(Given 12/08/2021) * TDAP (7yrs+)(Given 05/17/2011) * TDAP, HISTORIC VACCINE(Given 02/17/2023) * Zoster Hzv Vacc Recombinant Inj Im(Given 02/26/2023, 12/08/2021) Social History Tobacco Use Types Packs/Day Years [...] Recorded Patient Health Questionnaire-2 Score 0 12/05/2023 [facility] - Occupational Stress [...] place to sleep or slept in a nursing home (including now)? No 02/20/2023 Sex and Gender Information Value Date Recorded Sex Assigned at Female 10/22/2021 5:54 AM MENDER HAND Gender Identity Female 10/22/2021 5:54 AM MENDER HAND Sexual Orientation Not on file Last Filed Vital Signs Vital Sign Reading Time Taken Comments Blood Pressure 149/86 06/11/2024 12:39 PM CDT Pulse 96 06/11/2024 12:39 PM CDT Temperature 36.6 ??C (97.8 ??F) 06/11/2024 12:39 PM C DT Respiratory Rate 16 02/28/2024 9:48 AM CDT Oxygen Saturation 98% 02/28/2024 9:48 AM CDT Inhaled Oxygen Concentration 25% 08/21/2022 1 2:31 PM MENDER HAND Weight 74.4 kg (164 lb) 06/11/2024 12:39 PM CDT Height 170.2 cm (5' 7 ) 06/11/2024 12:39 PM CDT Body Mass Index 25.69 06/11/2024 12:39 PM CDT Medical Devices Implanted Type Area Concrete Rod Buster Device Identifier Shelf Expiration Date Model / Serial / Lot Cmpnt Fem Kn Rt 5 Crcte Rtn Legion Watt Implanted:Qty: 1 on 06/04/2017 by Taiwo Pérez MD at [facility] Right: Knee [employer] 04/29/2027 [id number] / / [id number] Nadir Basic Oli Excludes Agc Kn Implanted:Qty: 1 on 06/04/2017 by Taiwo Pérez MD at [facility] [employer] BILL ONLY BASIC OLI EXCLUDES AGC KN SNOR / / Stem Tib 55mm 18mm Prfx Mtphsl Kn Implanted:Qty: 1 on 06/04/2017 by Taiwo Pérez MD at [facility] Right: Knee [employer] 04/13/2027 [id number] / / [id number] Ins Tib 3-4 9mm Kn Xlpe Dsh Legion Implanted:Qty: 1 on 06/04/2017 by Taiwo Pérez MD at [facility] Right: Knee [employer] 11/14/2026 [id number] / / [id number] Bsplt Tib Legion 3 Kn Rt Watt Por Implanted:Qty: 1 on 06/04/2017 by Taiwo Pérez MD at [facility] Right: Knee [employer] 11/05/2026 [id number] / / [id number] Screw Bsplt 15mm 6.5mm Gns2 Kn Tib Por Implanted:Qty: 1 on 06/04/2017 by Taiwo Pérez MD at [facility] Right: Knee [employer] 11/20/2026 [id number] / / [id number] Screw Bsplt 30mm 6.5mm Gns2 Kn Tib Por Implanted:Qty: 1 on 06/04/2017 by Taiwo Pérez MD at [facility] Right: Knee [employer] 09/25/2026 [id number] / / [id number] Screw Bsplt 20mm 6.5mm Gns2 Kn Tib Por Implanted:Qty: 1 on 06/04/2017 by Taiwo Pérez MD at [facility] Right: Knee [employer] 04/16/2027 [id number] / / [id number] Screw Bsplt 30mm 6.5mm Gns2 Kn Tib Por Implanted:Qty: 1 on 06/04/2017 by Taiwo Pérez MD at [facility] Right: Knee [employer] 04/16/2027 [id number] / / [id number] [employer] [place] W/Dynacord Implanted:Qty: 1 on 02/05/2019 by Bryn Rose MD at [facility] Right: Shoulder 05/12/2021 [id number] / / [id number] Description:ab [employer] [place] W/Dynacord Implanted:Qty: 1 on 02/05/2019 by Bryn Rose MD at [facility] Right: Shoulder 10/10/2021 [id number] / / [id number] Description:ab [place] 5.5 Healix Adv Knt Br Implanted:Qty: 1 on 02/05/2019 by Bryn Rose MD at [facility] Right: Shoulder 01/10/2021 [id number] / / [id number] Description:ab HEALIX ADVANCE KNOTLESS BR ANCHOR [place] 5.5 Healix Adv Knt Br Implanted:Qty: 2 on 02/05/2019 by Bryn Rose MD at [facility] Right: Shoulder 03/12/2021 [id number] / / [id number] Description:ab HEALIX ADVANCE KNOTLESS BR ANCHOR Graft Tissue Allomend Aclr Drml Mtrx 8x4 Implanted:Qty: 1 on 02/05/2019 by Bryn Rose MD at [facility] Right: Shoulder [employer] 09/21/2020 [id number] / / [id number] Description:ab [place] 6.5 Healix Adv Knt Br Implanted:Qty: 2 on 02/05/2019 by Bryn Rose MD at [facility] Right: Shoulder 10/10/2021 [id number] / / [id number] Description:HEALIX ADVANCE K NOTLESS BR ANCHOR [employer] Hydrophobic Acrylic Intraocular Lens Implanted:Qty: 1 on 06/07/2022 by Mery Patel MD at [facility] Left: Eye [employer] 01/10/2025 [id number] 20.0 / [id number] / [id number] [employer] Implanted:Qty: 1 on 06/21/2022 by Mery Patel MD at [facility] Right: Eye 09/12/2024 MX60E 20.00 / [id number] / [id number] Patch Cv 6x1cm Vsgrd Bvn Pricrd Strl Implanted:Qty: 1 on 08/18/2022 by Yudith Rodriguez MD at [facility] Right: Carotid [employer] 09/01/2026 [id number] / / [id number] Explanted Type Area Concrete Rod Buster Device Identifier Shelf Expiration Date Model / Serial / Lot Screw Bsplt 25mm 6.5mm Gns2 Kn Tib Por Explanted:Qty: 1 on 06/04/2017 by Taiwo Pérez MD at [facility] Right: Knee [employer] 04/16/2027 [id number] / / [id number] Procedures * VAS CAROTID DUPLEX BILATERAL(Performed 06/11/2024) Performed for Bilateral carotid artery stenosis * URINALYSIS AUTO - POINT OF CARE (AMB) [facility](Performed 02/28/2024) Performed for Urge incontinence * UT MSR PVR U&/BLADD CAPCTY US NON(Performed 02/28/2024) Performed for Urge incontinence * CT UROGRAM(Performed 02/28/2024) Performed for Recurrent UTI, Kidney stone, Urinary retention * URINE MICROSCOPIC ONLY REFLEX TO CULTURE(Performed 02/13/2024) Performed for Dysuria * BASIC METABOLIC PANEL (CALCIUM TOTAL)(Performed 02/13/2024) Performed for Hypokalemia * URINALYSIS REFLEX MICROSCOPIC REFLEX CULTURE(Performed 02/13/2024) Performed for Dysuria * CULTURE URINE(Performed 02/13/2024) Performed for Dysuria * CBC W AUTO DIFFERENTIAL(Performed 02/05/2024) Performed for Fall, initial encounter * GLUCOSE - POINT OF CARE(Performed 02/05/2024) * CULTURE FUNGUS OTHER+FUNGUS SMEAR(Performed 02/05/2024) * CBC W AUTO DIFFERENTIAL(Performed 02/05/2024) Performed for Fall, initial encounter * GLUCOSE - POINT OF CARE(Performed 02/04/2024) * GLUCOSE - POINT OF CARE(Performed 02/04/2024) * GLUCOSE - POINT OF CARE(Performed 02/04/2024) * CBC W AUTO DIFFERENTIAL(Performed 02/04/2024) Performed for Fall, initial encounter * GLUCOSE - POINT OF CARE(Performed 02/04/2024) * BASIC METABOLIC PANEL (CALCIUM TOTAL)(Performed 02/04/2024) Performed for Fall, initial encounter * GLUCOSE - POINT OF CARE(Performed 02/04/2024) * GLUCOSE - POINT OF CARE(Performed 02/03/2024) * GLUCOSE - POINT OF CARE(Performed 02/03/2024) * GLUCOSE - POINT OF CARE(Performed 02/03/2024) * GLUCOSE - POINT OF CARE(Performed 02/03/2024) * BASIC METABOLIC PANEL (CALCIUM TOTAL)(Performed 02/03/2024) Performed for Encephalopathy * GLUCOSE - POINT OF CARE(Performed 02/02/2024) * URINE MICROSCOPIC ONLY REFLEX TO CULTURE(Performed 02/02/2024) * URINALYSIS REFLEX MICROSCOPIC REFLEX CULTURE(Performed 02/02/2024) * URINE DRUG SCREEN IMMUNOASSAY(Performed 02/02/2024) * CULTURE URINE(Performed 02/02/2024) * TROPONIN-I HIGH SENSITIVE REFLEX 1HOUR(Performed 02/02/2024) * CT FACIAL BONES WO CONTRAST(Performed 02/02/2024) Performed for Fall, initial encounter, Ecchymosis * CT LUMBAR SPINE WO CONTRAST(Performed 02/02/2024) Performed for Fall, initial encounter * CT THORACIC SPINE WO CONTRAST(Performed 02/02/2024) Performed for Fall, initial encounter * CT CHEST ABDOMEN PELVIS W CONT(Performed 02/02/2024) Performed for Fall, initial encounter * CT CERVICAL SPINE WO CONTRAST(Performed 02/02/2024) Performed for Fall, initial encounter * CT HEAD WO CONTRAST(Performed 02/02/2024) Performed for Fall, initial encounter * XR CHEST 1VW PORTABLE(Performed 02/02/2024) Performed for Fall, initial encounter * TYPE + SCREEN PANEL(Performed 02/02/2024) * TROPONIN-I HIGH SENSITIVE BASELINE + 1HR(Performed 02/02/2024) * COMPREHENSIVE METABOLIC PANEL(Performed 02/02/2024) * PT-INR [facility](Performed 02/02/2024) * CBC W AUTO DIFFERENTIAL(Performed 02/02/2024) * ALCOHOL ETHYL BLOOD(Performed 02/02/2024) * XR ANKLE LEFT 3VW OR MORE(Performed 01/08/2024) Performed for Achilles tendon disorder, left, Left ankle swelling * XR FOOT LEFT 2VW(Performed 01/08/2024) Performed for Achilles tendon disorder, left * URINALYSIS AUTO - POINT OF CARE (AMB) [facility](Performed 01/08/2024) Performed for Kidney stones * GLUCOSE - POINT OF CARE(Performed 12/29/2023) * GLUCOSE - POINT OF CARE(Performed 12/29/2023) * RENAL FUNCTION PANEL(Performed 12/29/2023) * CBC W AUTO DIFFERENTIAL(Performed 12/29/2023) * GLUCOSE - POINT OF CARE(Performed 12/28/2023) * GLUCOSE - POINT OF CARE(Performed 12/28/2023) * GLUCOSE - POINT OF CARE(Performed 12/28/2023) * HEMOGLOBIN A1C(Performed 12/28/2023) Performed for Type 2 diabetes mellitus with hyperglycemia, without long-term current use of insulin([facility]) * GLUCOSE - POINT OF CARE(Performed 12/27/2023) * GLUCOSE - POINT OF CARE(Performed 12/27/2023) * GLUCOSE - POINT OF CARE(Performed 12/27/2023) * GLUCOSE - POINT OF CARE(Performed 12/27/2023) * CULTURE BLOOD(Performed 12/27/2023) * CULTURE BLOOD(Performed 12/27/2023) * CT ABDOMEN PELVIS WO CONTRAST(Performed 12/26/2023) Performed for Urinary tract infection with hematuria, site unspecified * COMPREHENSIVE METABOLIC PANEL(Performed 12/26/2023) * CBC W AUTO DIFFERENTIAL(Performed 12/26/2023) * URINE MICROSCOPIC ONLY(Performed 12/26/2023) * URINALYSIS REFLEX TO MICROSCOPIC NO CULTURE(Performed 12/26/2023) * CULTURE URINE(Performed 12/26/2023) * URINALYSIS AUTO - POINT OF CARE (AMB) [facility](Performed 12/26/2023) Performed for Dysuria * UT MSR PVR U&/BLADD CAPCTY US NON(Performed 12/26/2023) Performed for Dysuria * PATHOLOGY/CYTOLOGY REPORT ORDER(Performed 12/26/2023) * LAMOTRIGINE LEVEL(Performed 12/24/2023) Performed for Bipolar 2 disorder (HCC) * URINALYSIS W/MICROSCOPIC NO CULTURE(Performed 12/12/2023) * CULTURE URINE(Performed 12/12/2023) * CULTURE URINE(Performed 12/11/2023) Performed for Recurrent UTI * URINALYSIS AUTO - POINT OF CARE (AMB) [facility](Performed 12/11/2023) Performed for Recurrent UTI * VAS CAROTID DUPLEX BILATERAL(Performed 12/10/2023) Performed for Carotid stenosis, right * CULTURE URINE(Performed 11/27/2023) Performed for Recurrent UTI * UT MSR PVR U&/BLADD CAPCTY US NON(Performed 11/27/2023) Performed for Recurrent UTI * URINALYSIS AUTO - POINT OF CARE (AMB) [facility](Performed 11/27/2023) Performed for Recurrent UTI * EKG 12-LEAD(Performed 11/02/2023) Performed for Carotid artery calcification, right * LAB RESULTS ORDER(Performed 10/05/2023) * CULTURE URINE(Performed 09/18/2023) Performed for Recurrent UTI * VAS BILATERAL VENOUS DUPLEX LE(Performed 08/16/2023) Performed for Leg edema, left, Skin lump of leg, right, Paroxysmal atrial fibrillation (HCC), Carotid artery calcification, right, Heart palpitations, Iliac artery pseudoaneurysm (HCC), Diastolic dysfunction without heart failure, Coronary artery disease involving [place] coronary artery of [place] heart, unspecified whether angina present, Carotid stenosis, right, TIA (transient ischemic attack), Essential hypertension, LVH (left ventricular hypertrophy) due to hypertensive disease, without heart failure * FRUCTOSAMINE(Performed 07/26/2023) Performed for Type 2 diabetes mellitus with hyperglycemia, without long-term current use of insulin([facility]) * MICROALB/CREAT RATIO URINE RANDOM PANEL(Performed 04/12/2023) Performed for Type 2 diabetes mellitus with hyperglycemia, without long-term current use of insulin([facility]) * URINALYSIS MICROSCOPIC ONLY REFLEXED(Performed 03/28/2023) Performed for Urinary tract infection without hematuria, site unspecified * URINALYSIS W/MICROSCOPIC REFLEX TO CULTURE(Performed 03/28/2023) Performed for Urinary tract infection without hematuria, site unspecified * CULTURE URINE COMPREHENSIVE(Performed 03/28/2023) Performed for Urinary tract infection without hematuria, site unspecified * APHERESIS/TRANSFUSION ORDER(Performed 03/19/2023) * CARDIAC PROCEDURE ORDER(Performed 03/16/2023) * CARDIAC PROCEDURE ORDER(Performed 03/16/2023) * CARDIAC PROCEDURE ORDER(Performed 03/16/2023) * GLUCOSE - POINT OF CARE(Performed 02/22/2023) * GLUCOSE - POINT OF CARE(Performed 02/22/2023) * GLUCOSE - POINT OF CARE(Performed 02/21/2023) * CBC W/O DIFFERENTIAL(Performed 02/21/2023) * GLUCOSE - POINT OF CARE(Performed 02/21/2023) * GLUCOSE - POINT OF CARE(Performed 02/21/2023) * GLUCOSE - POINT OF CARE(Performed 02/21/2023) * CBC W/O DIFFERENTIAL(Performed 02/21/2023) * PREPARE RBC LEUKOREDUCED UNIT(Performed 02/21/2023) * GLUCOSE - POINT OF CARE(Performed 02/20/2023) * GLUCOSE - POINT OF CARE(Performed 02/20/2023) * GLUCOSE - POINT OF CARE(Performed 02/20/2023) * GLUCOSE - POINT OF CARE(Performed 02/20/2023) * PHOSPHORUS BLOOD(Performed 02/20/2023) * MAGNESIUM BLOOD(Performed 02/20/2023) * BASIC METABOLIC PANEL (CALCIUM TOTAL)(Performed 02/20/2023) * CBC W/O DIFFERENTIAL(Performed 02/20/2023) * GLUCOSE - POINT OF CARE(Performed 02/19/2023) * GLUCOSE - POINT OF CARE(Performed 02/19/2023) * GLUCOSE - POINT OF CARE(Performed 02/19/2023) * HEMOGLOBIN A1C(Performed 02/19/2023) * GLUCOSE - POINT OF CARE(Performed 02/18/2023) * PHOSPHORUS BLOOD(Performed 02/18/2023) * MAGNESIUM BLOOD(Performed 02/18/2023) * CBC W/O DIFFERENTIAL(Performed 02/18/2023) * BASIC METABOLIC PANEL (CALCIUM TOTAL)(Performed 02/18/2023) * XR CHEST 1VW PORTABLE(Performed 02/17/2023) Performed for Hypokalemia * PREPARE RBC LEUKOREDUCED UNIT(Performed 02/17/2023) * PREPARE FFP UNIT(S)(Performed 02/17/2023) * BLOOD GAS+COOX+LYTES+METAB ARTERIAL POCT(Performed 02/17/2023) * PREPARE PLATELET PHERESIS UNIT(S)(Performed 02/17/2023) * CENTRAL LINE NOTE(Performed 02/17/2023) * ENDOTRACHEAL TUBE NOTE(Performed 02/17/2023) * ARTERIAL LINE NOTE(Performed 02/17/2023) * BLOOD GAS+COOX+LYTES+METAB ARTERIAL POCT(Performed 02/17/2023) * BLOOD GAS ART+LYTES+METAB+COOX POC NOTIF(Performed 02/17/2023) Performed for Gross hematuria * TRANSFUSE RED BLOOD CELL LEUKOREDUCED UNIT(S)(Performed 02/17/2023) * UT EXPL N/FLWD SURG LXTR ART(Performed 02/17/2023) Performed for Hematoma of left thigh, initial encounter * PREPARE FFP UNIT(S)(Performed 02/17/2023) * PREPARE RBC LEUKOREDUCED UNIT(Performed 02/17/2023) * PREPARE PLATELET PHERESIS UNIT(S)(Performed 02/17/2023) * EKG 12-LEAD(Performed 02/17/2023) Performed for Fall, initial encounter * TYPE + SCREEN PANEL(Performed 02/17/2023) * DIFFERENTIAL MANUAL(Performed 02/17/2023) * TEG 6S PLATELET MAPPING(Performed 02/17/2023) * TEG 6 GLOBAL HEMOSTASIS W/ LYSIS(Performed 02/17/2023) * PTT [facility](Performed 02/17/2023) * PT-INR [facility](Performed 02/17/2023) * CK BLOOD(Performed 02/17/2023) * CBC W AUTO DIFFERENTIAL(Performed 02/17/2023) * BASIC METABOLIC PANEL (CALCIUM TOTAL)(Performed 02/17/2023) * ALCOHOL ETHYL BLOOD(Performed 02/17/2023) * VAS CAROTID DUPLEX BILATERAL(Performed 12/13/2022) Performed for Carotid stenosis, right, History of right-sided carotid endarterectomy * BASIC METABOLIC PANEL (CALCIUM TOTAL)(Performed 12/07/2022) Performed for Essential hypertension * PROC EKG IN CLINIC(Performed 11/17/2022) Performed for Pre-op testing * VAS CAROTID DUPLEX BILATERAL(Performed 09/20/2022) Performed for Carotid stenosis, right * CULTURE URINE(Performed 09/03/2022) * UT MSR PVR U&/BLADD CAPCTY US NON(Performed 08/31/2022) Performed for Urinary retention * URINALYSIS AUTO - POINT OF CARE (AMB) [facility](Performed 08/31/2022) Performed for Urinary retention * CARDIAC EKG ORDER(Performed 08/30/2022) * GLUCOSE - POINT OF CARE(Performed 08/25/2022) * GLUCOSE - POINT OF CARE(Performed 08/25/2022) * PHOSPHORUS BLOOD(Performed 08/25/2022) Performed for Carotid stenosis, right * MAGNESIUM BLOOD(Performed 08/25/2022) Performed for Carotid stenosis, right * CBC W/O DIFFERENTIAL(Performed 08/25/2022) Performed for Carotid stenosis, right * BASIC METABOLIC PANEL (CALCIUM TOTAL)(Performed 08/25/2022) Performed for Carotid stenosis, right * GLUCOSE - POINT OF CARE(Performed 08/25/2022) * GLUCOSE - POINT OF CARE(Performed 08/24/2022) * GLUCOSE - POINT OF CARE(Performed 08/24/2022) * GLUCOSE - POINT OF CARE(Performed 08/24/2022) * GLUCOSE - POINT OF CARE(Performed 08/24/2022) * PHOSPHORUS BLOOD(Performed 08/24/2022) Performed for Carotid stenosis, right * MAGNESIUM BLOOD(Performed 08/24/2022) Performed for Carotid stenosis, right * CBC W/O DIFFERENTIAL(Performed 08/24/2022) Performed for Carotid stenosis, right * BASIC METABOLIC PANEL (CALCIUM TOTAL)(Performed 08/24/2022) Performed for Carotid stenosis, right * GLUCOSE - POINT OF CARE(Performed 08/23/2022) * GLUCOSE - POINT OF CARE(Performed 08/23/2022) * GLUCOSE - POINT OF CARE(Performed 08/23/2022) * GLUCOSE - POINT OF CARE(Performed 08/23/2022) * GLUCOSE - POINT OF CARE(Performed 08/23/2022) * BLOOD GASES ART + COOX PANEL(Performed 08/23/2022) Performed for Carotid stenosis, right * PHOSPHORUS BLOOD(Performed 08/23/2022) Performed for Carotid stenosis, right * MAGNESIUM BLOOD(Performed 08/23/2022) Performed for Carotid stenosis, right * CBC W/O DIFFERENTIAL(Performed 08/23/2022) Performed for Carotid stenosis, right * BASIC METABOLIC PANEL (CALCIUM TOTAL)(Performed 08/23/2022) Performed for Carotid stenosis, right * GLUCOSE - POINT OF CARE(Performed 08/22/2022) * GLUCOSE - POINT OF CARE(Performed 08/22/2022) * GLUCOSE - POINT OF CARE(Performed 08/22/2022) * XR ABDOMEN KUB PORTABLE(Performed 08/22/2022) Performed for Carotid stenosis, right * GLUCOSE - POINT OF CARE(Performed 08/22/2022) * BLOOD GASES ART + COOX PANEL(Performed 08/21/2022) Performed for Carotid stenosis, right * PHOSPHORUS BLOOD(Performed 08/21/2022) Performed for Carotid stenosis, right * MAGNESIUM BLOOD(Performed 08/21/2022) Performed for Carotid stenosis, right * CBC W/O DIFFERENTIAL(Performed 08/21/2022) Performed for Carotid stenosis, right * BASIC METABOLIC PANEL (CALCIUM TOTAL)(Performed 08/21/2022) Performed for Carotid stenosis, right * GLUCOSE - POINT OF CARE(Performed 08/21/2022) * BLOOD GASES ART + COOX PANEL(Performed 08/21/2022) Performed for Carotid stenosis, right * GLUCOSE - POINT OF CARE(Performed 08/21/2022) * BLOOD GASES ART + COOX PANEL(Performed 08/21/2022) Performed for Carotid stenosis, right * GLUCOSE - POINT OF CARE(Performed 08/21/2022) * XR CHEST 1VW PORTABLE(Performed 08/21/2022) Performed for Carotid stenosis, right * BLOOD GASES ART + COOX PANEL(Performed 08/21/2022) Performed for Carotid stenosis, right * PHOSPHORUS BLOOD(Performed 08/21/2022) Performed for Carotid stenosis, right * MAGNESIUM BLOOD(Performed 08/21/2022) Performed for Carotid stenosis, right * CBC W/O DIFFERENTIAL(Performed 08/21/2022) Performed for Carotid stenosis, right * BASIC METABOLIC PANEL (CALCIUM TOTAL)(Performed 08/21/2022) Performed for Carotid stenosis, right * GLUCOSE - POINT OF CARE(Performed 08/20/2022) * GLUCOSE - POINT OF CARE(Performed 08/20/2022) * BLOOD GASES ART + COOX PANEL(Performed 08/20/2022) Performed for Carotid stenosis, right * BLOOD GASES ART + COOX PANEL(Performed 08/20/2022) Performed for Carotid stenosis, right * XR CHEST 1VW PORTABLE(Performed 08/20/2022) Performed for Carotid stenosis, right * XR ABDOMEN KUB PORTABLE(Performed 08/20/2022) Performed for Carotid stenosis, right * XR CHEST 1VW PORTABLE(Performed 08/20/2022) Performed for Atypical atrial flutter (HCC) * EKG 12-LEAD(Performed 08/20/2022) Performed for Carotid stenosis, right * GLUCOSE - POINT OF CARE(Performed 08/20/2022) * GLUCOSE - POINT OF CARE(Performed 08/20/2022) * PHOSPHORUS BLOOD(Performed 08/20/2022) * MAGNESIUM BLOOD(Performed 08/20/2022) * BASIC METABOLIC PANEL (CALCIUM TOTAL)(Performed 08/20/2022) * CBC W/O DIFFERENTIAL(Performed 08/20/2022) * GLUCOSE - POINT OF CARE(Performed 08/19/2022) * GLUCOSE - POINT OF CARE(Performed 08/19/2022) * GLUCOSE - POINT OF CARE(Performed 08/19/2022) * GLUCOSE - POINT OF CARE(Performed 08/19/2022) * PHOSPHORUS BLOOD(Performed 08/19/2022) * MAGNESIUM BLOOD(Performed 08/19/2022) * BASIC METABOLIC PANEL (CALCIUM TOTAL)(Performed 08/19/2022) * CBC W/O DIFFERENTIAL(Performed 08/19/2022) * GLUCOSE - POINT OF CARE(Performed 08/18/2022) * XR CHEST 1VW PORTABLE(Performed 08/18/2022) Performed for Carotid stenosis, right * GLUCOSE - POINT OF CARE(Performed 08/18/2022) * GLUCOSE - POINT OF CARE(Performed 08/18/2022) * ACT LR - POCT ([facility])(Performed 08/18/2022) * GLUCOSE - POINT OF CARE(Performed 08/18/2022) * PATHOLOGY TISSUE(Performed 08/18/2022) Performed for Stenosis of carotid artery, unspecified laterality * UT TEAEC W/PATCH GRF CRTD VRT SUBCLA NCK INC(Performed 08/18/2022) Performed for Stenosis of carotid artery, unspecified laterality * ENDOTRACHEAL TUBE NOTE(Performed 08/18/2022) * GLUCOSE - POINT OF CARE(Performed 08/18/2022) * TYPE + SCREEN PANEL(Performed 08/18/2022) Performed for Facial droop * POTASSIUM WHOLE BLD(Performed 08/18/2022) Performed for Carotid stenosis, right * BASIC METABOLIC PANEL (CALCIUM TOTAL)(Performed 08/11/2022) Performed for Facial droop * CBC W AUTO DIFFERENTIAL(Performed 08/11/2022) Performed for Facial droop * CARDIAC EKG ORDER(Performed 07/14/2022) * ECHO STRESS W DOBUTAMINE(Performed 07/13/2022) Performed for Atrial flutter, unspecified type (HCC), Carotid stenosis, right, LVH (left ventricular hypertrophy) due to hypertensive disease, without heart failure, Coronary artery disease involvingnative coronary artery of [place] heart, unspecified whether angina present, Heart palpitations, Diastolic dysfunction without heart failure, MACIEL (dyspnea on exertion), Essential hypertension, Atypical atrial flutter (HCC), High risk medications (not anticoagulants) long-term use, Carotid artery calcification, right * EXTRACTION CATARACT WITH INSERTION LENS(Performed 06/21/2022) 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, mild stage, unspecified primary angle-closure glaucoma type * GLUCOSE - POINT OF CARE(Performed 06/21/2022) * HEMOGLOBIN A1C - POINT OF CARE (AMB) [facility](Performed 06/15/2022) Performed for Type 2 diabetes mellitus with hyperglycemia, without long-term current use of insulin(HCC) * GLUCOSE - POINT OF CARE(Performed 06/07/2022) * EXTRACTION CATARACT WITH INSERTION LENS(Performed 06/07/2022) 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, mild stage, unspecified primary angle-closure glaucoma type * GLUCOSE - POINT OF CARE(Performed 06/07/2022) * BASIC METABOLIC PANEL (CALCIUM TOTAL)(Performed 05/30/2022) * URINALYSIS MICROSCOPIC ONLY REFLEXED(Performed 05/19/2022) * CULTURE URINE COMPREHENSIVE(Performed 05/19/2022) * VAS CAROTID DUPLEX BILATERAL(Performed 05/10/2022) Performed for Stenosis of right carotid artery * BASIC METABOLIC PANEL (CALCIUM TOTAL)(Performed 04/28/2022) Performed for Hypokalemia * URINALYSIS MICROSCOPIC ONLY REFLEXED(Performed 04/28/2022) Performed for Recurrent UTI * URINALYSIS W/MICROSCOPIC REFLEX TO CULTURE(Performed 04/28/2022) Performed for Recurrent UTI * CULTURE URINE COMPREHENSIVE(Performed 04/28/2022) Performed for Recurrent UTI * OPH VISUAL FIELD TEST [facility](Performed 04/25/2022) 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, bilateral, mild stage * OPH OCT TEST [facility](Performed 04/25/2022) 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, bilateral, mild stage * CARDIAC EKG ORDER(Performed 04/13/2022) * GLUCOSE - POINT OF CARE(Performed 04/12/2022) * TROPONIN I(Performed 04/12/2022) * MRI BRAIN WO CONTRAST(Performed 04/12/2022) Performed for Facial droop * TROPONIN I(Performed 04/12/2022) * EKG 12-LEAD(Performed 04/12/2022) Performed for Facial droop * TYPE + SCREEN PANEL(Performed 04/12/2022) * HEMOGLOBIN A1C(Performed 04/12/2022) * TROPONIN I(Performed 04/12/2022) * PT-INR [facility](Performed 04/12/2022) * COMPREHENSIVE METABOLIC PANEL(Performed 04/12/2022) * CBC W AUTO DIFFERENTIAL(Performed 04/12/2022) * CT ANGIO BRAIN NECK STROKE(Performed 04/12/2022) Performed for Facial droop * CREATININE - POCT INTERFACED(Performed 04/12/2022) * GLUCOSE - POINT OF CARE(Performed 04/12/2022) * INR WHOLE BLOOD - POINT OF CARE (IP) STROKE(Performed 04/12/2022) * CT BRAIN STROKE(Performed 04/12/2022) Performed for Facial droop * URINALYSIS AUTO - POINT OF CARE (AMB) [facility](Performed 04/05/2022) Performed for Recurrent UTI * DEXA BONE DENSITY AXIAL SKELETON(Performed 02/09/2022) Performed for Ovarian failure * MAMMO BILAT SCREENING W SILVER(Performed 02/09/2022) Performed for Breast cancer screening by mammogram * UT REMOTE 30 DAY ECG REV/REPORT(Performed 01/15/2022) Performed for Heart palpitations * URINALYSIS MICROSCOPIC ONLY REFLEXED(Performed 01/12/2022) Performed for Urinary tract infection without hematuria, site unspecified * URINALYSIS W/MICROSCOPIC REFLEX TO CULTURE(Performed 01/12/2022) Performed for Urinary tract infection without hematuria, site unspecified * CULTURE URINE COMPREHENSIVE(Performed 01/12/2022) Performed for Urinary tract infection without hematuria, site unspecified * CARDIAC PROCEDURE ORDER(Performed 01/04/2022) * CARDIAC PROCEDURE ORDER(Performed 12/08/2021) * VITAMIN D 25-HYDROXY(Performed 09/20/2021) Performed for Myalgia, unspecified site * HEMOGLOBIN A1C(Performed 09/20/2021) Performed for FPC current use of antipsychotic medication * LIPID PROFILE(Performed 09/20/2021) Performed for [facility] current use of antipsychotic medication * FOLATE(Performed 09/20/2021) 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, Bipolar 2 disorder (HCC), Mild cognitive impairment * VITAMIN B12(Performed 09/20/2021) 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, Bipolar 2 disorder (HCC), Mild cognitive impairment * BASIC METABOLIC PANEL (CALCIUM TOTAL)(Performed 09/20/2021) Performed for Essential hypertension * LAB RESULTS ORDER(Performed 08/22/2021) * CULTURE URINE(Performed 08/18/2021) Performed for Recurrent UTI * UT MSR PVR U&/BLADD CAPCTY US NON(Performed 08/18/2021) Performed for Recurrent UTI * URINALYSIS AUTO - POINT OF CARE (AMB) [facility](Performed 08/18/2021) Performed for Recurrent UTI * URINALYSIS REFLEX TO MICROSCOPIC NO CULTURE(Performed 07/05/2021) * CULTURE URINE(Performed 07/05/2021) * URINALYSIS W/MICROSCOPIC NO CULTURE(Performed 07/04/2021) * CT ABDOMEN PELVIS W CONTRAST(Performed 07/04/2021) Performed for Abdominal pain, generalized * COMPREHENSIVE METABOLIC PANEL(Performed 07/04/2021) * CBC W AUTO DIFFERENTIAL(Performed 07/04/2021) * BASIC METABOLIC PANEL (CALCIUM TOTAL)(Performed 06/17/2021) Performed for Elevated serum creatinine * LAB RESULTS ORDER(Performed 06/13/2021) * LAB RESULTS ORDER(Performed 06/10/2021) * LAB RESULTS ORDER(Performed 06/10/2021) * GLUCOSE - POINT OF CARE(Performed 06/07/2021) * GLUCOSE - POINT OF CARE(Performed 06/07/2021) * GLUCOSE - POINT OF CARE(Performed 06/07/2021) * GLUCOSE - POINT OF CARE(Performed 06/07/2021) * COMPREHENSIVE METABOLIC PANEL(Performed 06/07/2021) Performed for Urinary tract infection without hematuria, site unspecified, Hypokalemia * CBC W AUTO DIFFERENTIAL(Performed 06/07/2021) Performed for Urinary tract infection without hematuria, site unspecified, Hypokalemia * MAGNESIUM BLOOD(Performed 06/07/2021) Performed for Hypomagnesemia * GLUCOSE - POINT OF CARE(Performed 06/06/2021) * GLUCOSE - POINT OF CARE(Performed 06/06/2021) * GLUCOSE - POINT OF CARE(Performed 06/06/2021) * GLUCOSE - POINT OF CARE(Performed 06/06/2021) * VANCOMYCIN LEVEL TROUGH(Performed 06/06/2021) * MAGNESIUM BLOOD(Performed 06/06/2021) Performed for Hypomagnesemia * CBC W/O DIFFERENTIAL(Performed 06/06/2021) Performed for Recurrent UTI, Pyelonephritis * BASIC METABOLIC PANEL (CALCIUM TOTAL)(Performed 06/06/2021) Performed for Recurrent UTI, Pyelonephritis * GLUCOSE - POINT OF CARE(Performed 06/05/2021) * GLUCOSE - POINT OF CARE(Performed 06/05/2021) * GLUCOSE - POINT OF CARE(Performed 06/05/2021) * GLUCOSE - POINT OF CARE(Performed 06/05/2021) * MAGNESIUM BLOOD(Performed 06/05/2021) Performed for Hypomagnesemia * CBC W/O DIFFERENTIAL(Performed 06/05/2021) Performed for Recurrent UTI, Pyelonephritis * BASIC METABOLIC PANEL (CALCIUM TOTAL)(Performed 06/05/2021) Performed for Recurrent UTI, Pyelonephritis * GLUCOSE - POINT OF CARE(Performed 06/04/2021) * GLUCOSE - POINT OF CARE(Performed 06/04/2021) * GLUCOSE - POINT OF CARE(Performed 06/04/2021) * CULTURE BLOOD(Performed 06/04/2021) Performed for Acute cystitis without hematuria * CULTURE BLOOD(Performed 06/04/2021) Performed for Acute cystitis without hematuria * GLUCOSE - POINT OF CARE(Performed 06/04/2021) * MAGNESIUM BLOOD(Performed 06/04/2021) Performed for Bradycardia * TSH REFLEX FREE T4(Performed 06/04/2021) Performed for Bradycardia * HEMOGLOBIN A1C(Performed 06/04/2021) Performed for Type 2 diabetes mellitus with hyperglycemia, without long-term current use of insulin(HCC) * CBC W/O DIFFERENTIAL(Performed 06/04/2021) Performed for Recurrent UTI, Pyelonephritis * BASIC METABOLIC PANEL (CALCIUM TOTAL)(Performed 06/04/2021) Performed for Recurrent UTI, Pyelonephritis * GLUCOSE - POINT OF CARE(Performed 06/03/2021) * GLUCOSE - POINT OF CARE(Performed 06/03/2021) * EKG 12-LEAD(Performed 06/03/2021) Performed for Bradycardia * MAGNESIUM BLOOD(Performed 06/03/2021) Performed for Hypomagnesemia * GLUCOSE - POINT OF CARE(Performed 06/03/2021) * PT EVAL AND TREAT(Performed 06/03/2021) * OT EVAL AND TREAT(Performed 06/03/2021) * GLUCOSE - POINT OF CARE(Performed 06/03/2021) * MAGNESIUM BLOOD(Performed 06/03/2021) Performed for Hypokalemia * ALBUMIN BLOOD(Performed 06/03/2021) Performed for Recurrent UTI * CBC W/O DIFFERENTIAL(Performed 06/03/2021) Performed for Recurrent UTI, Pyelonephritis * BASIC METABOLIC PANEL (CALCIUM TOTAL)(Performed 06/03/2021) Performed for Recurrent UTI, Pyelonephritis * GLUCOSE - POINT OF CARE(Performed 06/02/2021) * GLUCOSE - POINT OF CARE(Performed 06/02/2021) * GLUCOSE - POINT OF CARE(Performed 06/02/2021) * GLUCOSE - POINT OF CARE(Performed 06/02/2021) * CBC W/O DIFFERENTIAL(Performed 06/02/2021) Performed for Recurrent UTI, Pyelonephritis * BASIC METABOLIC PANEL (CALCIUM TOTAL)(Performed 06/02/2021) Performed for Recurrent UTI, Pyelonephritis * GLUCOSE - POINT OF CARE(Performed 06/01/2021) * GLUCOSE - POINT OF CARE(Performed 06/01/2021) * GLUCOSE - POINT OF CARE(Performed 06/01/2021) * OSMOLALITY URINE(Performed 06/01/2021) * GLUCOSE - POINT OF CARE(Performed 06/01/2021) * CBC W/O DIFFERENTIAL(Performed 06/01/2021) Performed for Recurrent UTI, Pyelonephritis * BASIC METABOLIC PANEL (CALCIUM TOTAL)(Performed 06/01/2021) Performed for Recurrent UTI, Pyelonephritis * GLUCOSE - POINT OF CARE(Performed 05/31/2021) * GLUCOSE - POINT OF CARE(Performed 05/31/2021) * GLUCOSE - POINT OF CARE(Performed 05/31/2021) * SODIUM URINE RANDOM(Performed 05/31/2021) * CREATININE URINE RANDOM(Performed 05/31/2021) * CULTURE URINE(Performed 05/31/2021) * GLUCOSE - POINT OF CARE(Performed 05/31/2021) * CBC W/O DIFFERENTIAL(Performed 05/31/2021) Performed for Recurrent UTI, Pyelonephritis * BASIC METABOLIC PANEL (CALCIUM TOTAL)(Performed 05/31/2021) Performed for Recurrent UTI, Pyelonephritis * ED GENERAL PROCEDURE(Performed 05/31/2021) * ED GENERAL PROCEDURE(Performed 05/31/2021) * CT ABDOMEN PELVIS WO CONTRAST(Performed 05/31/2021) Performed for Pyelonephritis * URINALYSIS W/MICROSCOPIC NO CULTURE(Performed 05/31/2021) * COMPREHENSIVE METABOLIC PANEL(Performed 05/30/2021) * CBC W AUTO DIFFERENTIAL(Performed 05/30/2021) * MAGNESIUM BLOOD(Performed 05/30/2021) Performed for Urinary tract infection without hematuria, site unspecified * CBC W AUTO DIFFERENTIAL(Performed 05/30/2021) Performed for Urinary tract infection without hematuria, site unspecified * COMPREHENSIVE METABOLIC PANEL(Performed 05/30/2021) Performed for Urinary tract infection without hematuria, site unspecified * GLUCOSE - POINT OF CARE(Performed 05/16/2021) * GLUCOSE - POINT OF CARE(Performed 05/16/2021) * CBC W/O DIFFERENTIAL(Performed 05/16/2021) Performed for Urinary tract infection without hematuria, site unspecified * MAGNESIUM BLOOD(Performed 05/16/2021) Performed for Urinary tract infection without hematuria, site unspecified * RENAL FUNCTION PANEL(Performed 05/16/2021) Performed for Urinary tract infection without hematuria, site unspecified * GLUCOSE - POINT OF CARE(Performed 05/16/2021) * GLUCOSE - POINT OF CARE(Performed 05/15/2021) * GLUCOSE - POINT OF CARE(Performed 05/15/2021) * GLUCOSE - POINT OF CARE(Performed 05/15/2021) * MAGNESIUM BLOOD(Performed 05/15/2021) Performed for Recurrent UTI * RENAL FUNCTION PANEL(Performed 05/15/2021) Performed for Recurrent UTI * CBC W/O DIFFERENTIAL(Performed 05/15/2021) Performed for Recurrent UTI * GLUCOSE - POINT OF CARE(Performed 05/15/2021) * GLUCOSE - POINT OF CARE(Performed 05/14/2021) * GLUCOSE - POINT OF CARE(Performed 05/14/2021) * GLUCOSE - POINT OF CARE(Performed 05/14/2021) * GLUCOSE - POINT OF CARE(Performed 05/14/2021) * C DIFFICILE GDH AG + TOXIN A+B(Performed 05/14/2021) Performed for Functional diarrhea * GLUCOSE - POINT OF CARE(Performed 05/14/2021) * GLUCOSE - POINT OF CARE(Performed 05/13/2021) * GLUCOSE - POINT OF CARE(Performed 05/13/2021) * GLUCOSE - POINT OF CARE(Performed 05/13/2021) * GLUCOSE - POINT OF CARE(Performed 05/12/2021) * GLUCOSE - POINT OF CARE(Performed 05/12/2021) * HIV-1 HIV-2 ANTIBODY + HIV P24 AG PANEL(Performed 05/12/2021) Performed for Urinary tract infection without hematuria, site unspecified * PT EVAL AND TREAT(Performed 05/12/2021) * OT EVAL AND TREAT(Performed 05/12/2021) * GLUCOSE - POINT OF CARE(Performed 05/12/2021) * GLUCOSE - POINT OF CARE(Performed 05/12/2021) * MAGNESIUM BLOOD(Performed 05/12/2021) Performed for Urinary tract infection without hematuria, site unspecified * RENAL FUNCTION PANEL(Performed 05/12/2021) Performed for Urinary tract infection without hematuria, site unspecified * CBC W/O DIFFERENTIAL(Performed 05/12/2021) Performed for Urinary tract infection without hematuria, site unspecified * GLUCOSE - POINT OF CARE(Performed 05/11/2021) * CARDIAC EKG ORDER(Performed 05/11/2021) * GLUCOSE - POINT OF CARE(Performed 05/11/2021) * GLUCOSE - POINT OF CARE(Performed 05/11/2021) * PHOSPHORUS BLOOD(Performed 05/11/2021) Performed for Urinary tract infection without hematuria, site unspecified * MAGNESIUM BLOOD(Performed 05/11/2021) Performed for Urinary tract infection without hematuria, site unspecified * CBC W AUTO DIFFERENTIAL(Performed 05/11/2021) Performed for Urinary tract infection without hematuria, site unspecified * BASIC METABOLIC PANEL (CALCIUM TOTAL)(Performed 05/11/2021) Performed for Urinary tract infection without hematuria, site unspecified * GLUCOSE - POINT OF CARE(Performed 05/10/2021) * CULTURE BLOOD(Performed 05/10/2021) Performed for Urinary tract infection without hematuria, site unspecified * LACTIC ACID BLOOD(Performed 05/10/2021) Performed for Urinary tract infection without hematuria, site unspecified * PHOSPHORUS BLOOD(Performed 05/10/2021) Performed for Urinary tract infection without hematuria, site unspecified * MAGNESIUM BLOOD(Performed 05/10/2021) Performed for Urinary tract infection without hematuria, site unspecified * CULTURE BLOOD(Performed 05/10/2021) Performed for Urinary tract infection without hematuria, site unspecified * CT ABDOMEN PELVIS W CONTRAST(Performed 05/10/2021) Performed for Flank pain, Urinary tract infection without hematuria, site unspecified * CULTURE URINE(Performed 05/10/2021) * TROPONIN I(Performed 05/10/2021) * URINALYSIS REFLEX TO MICROSCOPIC NO CULTURE(Performed 05/10/2021) * EKG 12-LEAD(Performed 05/10/2021) Performed for Chest tightness * COMPREHENSIVE METABOLIC PANEL(Performed 05/10/2021) * CBC W AUTO DIFFERENTIAL(Performed 05/10/2021) * CT UROGRAM(Performed 05/03/2021) Performed for Recurrent UTI * CREATININE - POCT INTERFACED(Performed 05/03/2021) * CULTURE URINE(Performed 04/21/2021) * UT CYSTOURETHROSCOPY(Performed 04/11/2021) Performed for Recurrent UTI * UT MSR PVR U&/BLADD CAPCTY US NON(Performed 04/07/2021) Performed for Recurrent UTI * URINALYSIS AUTO - POINT OF CARE (AMB) [facility](Performed 04/07/2021) Performed for Recurrent UTI * URINALYSIS REFLEX TO MICROSCOPIC NO CULTURE(Performed 04/05/2021) Performed for Acute cystitis without hematuria * CULTURE URINE(Performed 04/05/2021) Performed for Recurrent UTI * TSH REFLEX FREE T4(Performed 04/05/2021) Performed for Fatigue, unspecified type, Controlled type 2 diabetes mellitus without complication, without long-term current use of insulin (HCC) * CBC W AUTO DIFFERENTIAL(Performed 04/05/2021) Performed for Acute cystitis without hematuria * BASIC METABOLIC PANEL (CALCIUM TOTAL)(Performed 04/05/2021) Performed for High risk medications (not anticoagulants) long-term use * URINALYSIS REFLEX TO MICROSCOPIC NO CULTURE(Performed 03/25/2021) Performed for Urinary tract infection without hematuria, site unspecified * CULTURE URINE(Performed 03/25/2021) Performed for Urinary tract infection without hematuria, site unspecified * BASIC METABOLIC PANEL (CALCIUM TOTAL)(Performed 03/25/2021) Performed for Urinary tract infection without hematuria, site unspecified * CBC W AUTO DIFFERENTIAL(Performed 03/25/2021) Performed for Urinary tract infection without hematuria, site unspecified * HEMOGLOBIN A1C - POINT OF CARE (AMB) [facility](Performed 03/25/2021) Performed for Controlled type 2 diabetes mellitus with complication, without long-term current use of insulin (HCC) * CULTURE URINE(Performed 03/18/2021) * TSH(Performed 03/18/2021) Performed for Fatigue, unspecified type * URINALYSIS AUTO - POINT OF CARE (AMB) [facility](Performed 03/11/2021) Performed for Recurrent UTI * CULTURE URINE(Performed 03/10/2021) * CULTURE URINE(Performed 02/11/2021) Performed for Recurrent UTI * BASIC METABOLIC PANEL (CALCIUM TOTAL)(Performed 02/04/2021) * CT CHEST WO CONTRAST(Performed 01/19/2021) Performed for History of smoking 30 or more pack years * CULTURE URINE(Performed 12/28/2020) Performed for Recurrent UTI * PATHOLOGY TISSUE(Performed 12/14/2020) Performed for Gastroesophageal reflux disease, unspecified whether esophagitis present, Diarrhea, unspecified type * UT COLONOSCOPY, DIAGNOSTIC(Performed 12/14/2020) Performed for Gastroesophageal reflux disease, unspecified whether esophagitis present, Diarrhea, unspecified type * UT ED EGD FLEX TRANSORAL DX(Performed 12/14/2020) Performed for Gastroesophageal reflux disease, unspecified whether esophagitis present, Diarrhea, unspecified type * EGD(Performed 12/14/2020) * ENDOSCOPY, COLON, SCREENING(Performed 12/14/2020) * GLUCOSE - POINT OF CARE(Performed 12/14/2020) * BASIC METABOLIC PANEL (CALCIUM TOTAL)(Performed 12/01/2020) Performed for High risk medications (not anticoagulants) long-term use * CULTURE URINE(Performed 12/01/2020) Performed for Acute cystitis without hematuria * UT ECG/REVIEW INTERPRET ONLY(Performed 11/13/2020) Performed for Heart palpitations * ECHO COMPLETE(Performed 10/29/2020) Performed for Essential hypertension * CARDIAC PROCEDURE ORDER(Performed 10/22/2020) * CARDIAC PROCEDURE ORDER(Performed 10/18/2020) * URINALYSIS NO MICROSCOPIC NO CULTURE(Performed 10/07/2020) Performed for Recurrent UTI * CULTURE URINE(Performed 10/07/2020) Performed for Recurrent UTI * CARDIAC PROCEDURE ORDER(Performed 09/16/2020) * MAMMO BILAT SCREENING(Performed 09/15/2020) Performed for Encounter for screening mammogram for malignant neoplasm of breast * LIPID PROFILE(Performed 09/13/2020) Performed for Essential hypertension, Mixed hyperlipidemia * CBC W AUTO DIFFERENTIAL(Performed 09/13/2020) Performed for Essential hypertension, Type 2 diabetes mellitus with hyperglycemia, without long-term current use of insulin (HCC), SOB (shortness of breath) * MICROALB/CREAT RATIO URINE RANDOM PANEL(Performed 09/13/2020) Performed for Essential hypertension, Type 2 diabetes mellitus with hyperglycemia, without long-term current use of insulin (HCC), SOB (shortness of breath) * COMPREHENSIVE METABOLIC PANEL(Performed 09/13/2020) Performed for Essential hypertension, Type 2 diabetes mellitus with hyperglycemia, without long-term current use of insulin ([facility]), Hypokalemia, SOB (shortness of breath) * PROC EKG IN CLINIC(Performed 09/10/2020) Performed for Heart palpitations, SOB (shortness of breath) * HEMOGLOBIN A1C - POINT OF CARE (AMB) [facility](Performed 09/10/2020) Performed for Controlled type 2 diabetes mellitus without complication, without long-term current use of insulin ([facility]) * CT CERVICAL SPINE WO CONTRAST(Performed 08/20/2020) Performed for Cervical spondylosis * URINALYSIS AUTO - POINT OF CARE (AMB) [facility](Performed 08/19/2020) Performed for Recurrent UTI * XR CERVICAL SPINE 2 OR 3VW(Performed 08/12/2020) Performed for Neck pain * MRI CERVICAL SPINE WO CONTRAST(Performed 06/23/2020) Performed for Cervical radiculopathy * URINALYSIS AUTO - POINT OF CARE (AMB) [facility](Performed 05/06/2020) Performed for Recurrent UTI * CT UROGRAM(Performed 05/05/2020) Performed for Recurrent UTI, History of kidney stones * CREATININE - POCT INTERFACED(Performed 05/05/2020) * LAB RESULTS ORDER(Performed 04/14/2020) * URINALYSIS W/MICROSCOPIC NO CULTURE(Performed 03/30/2020) Performed for Recurrent UTI * URINALYSIS AUTO - POINT OF CARE (AMB) [facility](Performed 03/30/2020) Performed for Recurrent UTI * URINALYSIS W/MICROSCOPIC NO CULTURE(Performed 03/09/2020) * CULTURE URINE(Performed 03/09/2020) * LAB RESULTS ORDER(Performed 03/03/2020) * HEMOGLOBIN A1C(Performed 03/02/2020) * BASIC METABOLIC PANEL (CALCIUM TOTAL)(Performed 02/19/2020) * URINALYSIS NO MICROSCOPIC NO CULTURE(Performed 02/19/2020) * HEMOGLOBIN A1C(Performed 02/19/2020) Performed for Type 2 diabetes mellitus with hyperglycemia, without long-term current use of insulin([facility]) * CULTURE URINE(Performed 02/19/2020) * CULTURE STOOL PANEL(Performed 01/03/2020) Performed for Diarrhea, unspecified type * C DIFFICILE TOXIN/GDH W REFLX TO PCR(Performed 01/03/2020) Performed for Diarrhea, unspecified type * ERYTHROCYTE SEDIMENTATION RATE(Performed 01/01/2020) Performed for Diarrhea, unspecified type * C-REACTIVE PROTEIN(Performed 01/01/2020) Performed for Diarrhea, unspecified type * COMPREHENSIVE METABOLIC PANEL(Performed 01/01/2020) Performed for Diarrhea, unspecified type * CBC W AUTO DIFFERENTIAL(Performed 01/01/2020) Performed for Diarrhea, unspecified type * CARDIAC EKG ORDER(Performed 12/03/2019) * IR CAROTID CEREBRAL ANGIOGRAM(Performed 11/18/2019) Performed for Carotid stenosis, right * GLUCOSE - POINT OF CARE(Performed 11/18/2019) * TYPE + SCREEN PANEL(Performed 11/18/2019) Performed for Pre-op evaluation * PTT [facility](Performed 11/18/2019) Performed for Pre-op evaluation * PT-INR [facility](Performed 11/18/2019) Performed for Pre-op evaluation * BASIC METABOLIC PANEL (CALCIUM TOTAL)(Performed 11/18/2019) Performed for Pre-op evaluation * CBC W AUTO DIFFERENTIAL(Performed 11/18/2019) Performed for Pre-op evaluation * TYPE + SCREEN PANEL(Performed 10/03/2019) Performed for Carotid stenosis, right * CBC W/O DIFFERENTIAL(Performed 10/03/2019) Performed for Carotid stenosis, right * BASIC METABOLIC PANEL (CALCIUM TOTAL)(Performed 10/03/2019) Performed for Type 2 diabetes mellitus with hyperglycemia, without long-term current use of insulin(HCC), Carotid stenosis, right * EKG 12-LEAD(Performed 10/03/2019) Performed for Carotid stenosis, right * CULTURE URINE(Performed 09/12/2019) Performed for Acute cystitis without hematuria * CT LUNG SCREEN LOW DOSE(Performed 08/04/2019) Performed for History of smoking 30 or more pack years * CULTURE URINE(Performed 07/30/2019) Performed for Recurrent UTI * MAMMO BILAT SCREENING(Performed 07/30/2019) Performed for Visit for screening mammogram * PT EVAL AND TREAT(Performed 06/20/2019) * OT EVAL AND TREAT(Performed 06/20/2019) * GLUCOSE - POINT OF CARE(Performed 06/20/2019) * GLUCOSE - POINT OF CARE(Performed 06/19/2019) * GLUCOSE - POINT OF CARE(Performed 06/19/2019) * GLUCOSE - POINT OF CARE(Performed 06/19/2019) * URINE DRUG SCREEN IMMUNOASSAY(Performed 06/18/2019) * URINALYSIS W/MICROSCOPIC NO CULTURE(Performed 06/18/2019) * MAGNESIUM BLOOD(Performed 06/18/2019) * CALCIUM IONIZED WHOLE BLOOD(Performed 06/18/2019) * CBC W AUTO DIFFERENTIAL(Performed 06/18/2019) * BASIC METABOLIC PANEL (CALCIUM TOTAL)(Performed 06/18/2019) * LAMOTRIGINE LEVEL(Performed 06/18/2019) * URINE DRUG SCREEN IMMUNOASSAY(Performed 06/16/2019) * TSH(Performed 06/16/2019) * BASIC METABOLIC PANEL (CALCIUM TOTAL)(Performed 06/16/2019) * CBC W AUTO DIFFERENTIAL(Performed 06/16/2019) * GLUCOSE - POINT OF CARE(Performed 06/16/2019) * URINALYSIS W/MICROSCOPIC NO CULTURE(Performed 06/16/2019) * CULTURE URINE(Performed 06/12/2019) Performed for Recurrent UTI * CARDIAC RHYTHM STRIP ORDER(Performed 06/05/2019) * MANOMETRY/SENSATION TESTING ANORECTAL(Performed 06/02/2019) Performed for Incontinence of feces, unspecified fecal incontinence type * CARDIAC EKG ORDER(Performed 05/30/2019) * CBC W AUTO DIFFERENTIAL(Performed 05/29/2019) Performed for Urinary tract infection without hematuria, site unspecified * RENAL FUNCTION PANEL(Performed 05/29/2019) Performed for Parkinson's disease, Gait instability * GLUCOSE - POINT OF CARE(Performed 05/28/2019) * HEMOGLOBIN A1C(Performed 05/28/2019) Performed for Type 2 diabetes mellitus with hyperglycemia, without long-term current use of insulin(HCC) * CBC W AUTO DIFFERENTIAL(Performed 05/28/2019) Performed for Parkinson's disease, Gait instability * RENAL FUNCTION PANEL(Performed 05/28/2019) Performed for Parkinson's disease, Gait instability * TSH REFLEX FREE T4(Performed 05/28/2019) Performed for Fatigue, unspecified type * GLUCOSE - POINT OF CARE(Performed 05/27/2019) * GLUCOSE - POINT OF CARE(Performed 05/27/2019) * CT ANGIO BRAIN AND NECK(Performed 05/27/2019) Performed for Gait instability * MRI BRAIN WO CONTRAST(Performed 05/27/2019) Performed for Gait instability * EEG(Performed 05/27/2019) * GLUCOSE - POINT OF CARE(Performed 05/27/2019) * LIPID PROFILE(Performed 05/27/2019) Performed for Gait instability, Type 2 diabetes mellitus with hyperglycemia, without long-term current use of insulin (HCC) * MAGNESIUM BLOOD(Performed 05/27/2019) Performed for Gait instability, Urinary tract infection without hematuria, site unspecified * RENAL FUNCTION PANEL(Performed 05/27/2019) Performed for Gait instability, Urinary tract infection without hematuria, site unspecified * GLUCOSE - POINT OF CARE(Performed 05/27/2019) * URINE MICROSCOPIC ONLY REFLEX TO CULTURE(Performed 05/27/2019) * URINALYSIS REFLEX MICROSCOPIC REFLEX CULTURE(Performed 05/27/2019) * CULTURE URINE(Performed 05/27/2019) * GLUCOSE - POINT OF CARE(Performed 05/26/2019) * CT HEAD WO CONTRAST(Performed 05/26/2019) Performed for Dizziness * EKG 12-LEAD(Performed 05/26/2019) Performed for Dizziness * TROPONIN I(Performed 05/26/2019) * COMPREHENSIVE METABOLIC PANEL(Performed 05/26/2019) * CBC W AUTO DIFFERENTIAL(Performed 05/26/2019) * CULTURE URINE COMPREHENSIVE(Performed 05/23/2019) Performed for Recurrent UTI * UT INSERT NON-INDWELLING BLADDER(Performed 05/23/2019) Performed for Recurrent UTI * URINALYSIS AUTO - POINT OF CARE (AMB) [facility](Performed 05/23/2019) Performed for Recurrent UTI * VITAMIN D 25-HYDROXY(Performed 05/19/2019) * BASIC METABOLIC PANEL (CALCIUM TOTAL)(Performed 05/19/2019) * MICROALB/CREAT RATIO URINE RANDOM PANEL(Performed 05/19/2019) * HEMOGLOBIN - POINT OF CARE (AMB) [facility](Performed 05/19/2019) Performed for Type 2 diabetes mellitus with hyperglycemia, without long-term current use of insulin(HCC) * CULTURE URINE(Performed 05/05/2019) Performed for Dysuria * LAB RESULTS ORDER(Performed 04/24/2019) * CARDIAC EKG ORDER(Performed 03/27/2019) * CULTURE URINE(Performed 03/27/2019) Performed for Dysuria * ERYTHROCYTE SEDIMENTATION RATE(Performed 03/18/2019) Performed for Diarrhea, unspecified type * C-REACTIVE PROTEIN(Performed 03/18/2019) Performed for Diarrhea, unspecified type * TISSUE TRANSGLUTAMINASE AB IGA(Performed 03/18/2019) Performed for Diarrhea, unspecified type * IGA BLOOD(Performed 03/18/2019) Performed for Diarrhea, unspecified type * T4 FREE(Performed 03/18/2019) Performed for Diarrhea, unspecified type * TSH(Performed 03/18/2019) Performed for Diarrhea, unspecified type * COMPREHENSIVE METABOLIC PANEL(Performed 03/18/2019) Performed for Diarrhea, unspecified type * CBC W AUTO DIFFERENTIAL(Performed 03/18/2019) Performed for Diarrhea, unspecified type * CULTURE STOOL PANEL(Performed 03/18/2019) Performed for Diarrhea, unspecified type * C DIFFICILE TOXIN/GDH W REFLX TO PCR(Performed 03/18/2019) Performed for Diarrhea, unspecified type * CULTURE URINE COMPREHENSIVE(Performed 02/25/2019) Performed for Recurrent UTI * UT CYSTOURETHROSCOPY(Performed 02/25/2019) Performed for Recurrent UTI * URINALYSIS - POINT OF CARE(Performed 02/25/2019) Performed for Recurrent UTI * VAS LEFT VENOUS DUPLEX LE(Performed 02/21/2019) Performed for Swelling of lower extremity * CARDIAC RHYTHM STRIP ORDER(Performed 02/07/2019) * IMAGING/RADIOLOGY/XRAY RESULTS ORDER(Performed 02/07/2019) * GLUCOSE - POINT OF CARE(Performed 02/05/2019) * PERIPHERAL BLOCK(Performed 02/05/2019) * ENDOTRACHEAL TUBE NOTE(Performed 02/05/2019) * ARTHROSCOPY SHOULDER ROTATOR CUFF REPAIR (RCR)(Performed 02/05/2019) Performed for Diagnosis unknown * GLUCOSE - POINT OF CARE(Performed 02/05/2019) * HEMOGLOBIN A1C - POINT OF CARE (AMB) [facility](Performed 01/17/2019) Performed for Type 2 diabetes mellitus with hyperglycemia, without long-term current use of insulin(HCC) * LAB RESULTS ORDER(Performed 01/08/2019) * BASIC METABOLIC PANEL (CALCIUM TOTAL)(Performed 01/03/2019) * URINALYSIS REFLEX TO MICROSCOPIC NO CULTURE(Performed 01/03/2019) * EKG 12-LEAD(Performed 01/03/2019) Performed for Other chest pain * DIFFERENTIAL MANUAL(Performed 01/03/2019) * LIPASE BLOOD(Performed 01/03/2019) * COMPREHENSIVE METABOLIC PANEL(Performed 01/03/2019) * CBC W AUTO DIFFERENTIAL(Performed 01/03/2019) * MRI SHOULDER RIGHT WO CONTRAST(Performed 01/01/2019) Performed for Traumatic complete tear of right rotator cuff, initial encounter * CULTURE URINE(Performed 12/20/2018) Performed for Dysuria * XR ANKLE LEFT 3VW OR MORE(Performed 12/18/2018) Performed for Left ankle swelling * BASIC METABOLIC PANEL (CALCIUM TOTAL)(Performed 12/18/2018) Performed for Type 2 diabetes mellitus with hyperglycemia, without long-term current use of insulin([facility]), Essential hypertension * CBC W AUTO DIFFERENTIAL(Performed 12/18/2018) Performed for Left ankle swelling, Urinary tract infection without hematuria, site unspecified, Type 2 diabetes mellitus with hyperglycemia, without long-term current use of insulin ([facility]), Essential hypertension * XR SHOULDER RIGHT 2VW OR MORE(Performed 12/10/2018) Performed for Right shoulder pain, unspecified chronicity * CULTURE URINE(Performed 12/09/2018) Performed for Acute cystitis without hematuria * STREP PNEUMO AB IGG 23 SEROTYPES PANEL(Performed 12/09/2018) Performed for Type 2 diabetes mellitus with hyperglycemia, without long-term current use of insulin([facility]), T12 compression fracture ([facility]) * B-TYPE NATRIURETIC PEPTIDE(Performed 12/09/2018) Performed for Urge incontinence, Type 2 diabetes mellitus with hyperglycemia, without long-term current use of insulin ([facility]) * LIPID PROFILE(Performed 12/09/2018) Performed for Hyperlipidemia, unspecified hyperlipidemia type * CULTURE URINE(Performed 11/25/2018) Performed for Acute cystitis without hematuria * URINALYSIS W/MICROSCOPIC NO CULTURE(Performed 11/06/2018) Performed for Recurrent UTI * CULTURE URINE(Performed 11/06/2018) Performed for Recurrent UTI * CULTURE URINE(Performed 10/23/2018) Performed for Dysuria * CULTURE URINE COMPREHENSIVE(Performed 10/09/2018) Performed for Recurrent UTI * UT INSERT NON-INDWELLING BLADDER(Performed 10/09/2018) Performed for Recurrent UTI * URINALYSIS - POINT OF CARE(Performed 10/09/2018) Performed for Recurrent UTI * LIPID PROFILE(Performed 10/01/2018) * HEMOGLOBIN - POINT OF CARE (AMB) [facility](Performed 08/09/2018) Performed for Type 2 diabetes mellitus with complication, without long-term current use of insulin ([facility]) * DIPHTHERIA ANTIBODY(Performed 06/06/2018) Performed for Hypogammaglobulinemia (HCC) * TETANUS ANTIBODY(Performed 06/06/2018) Performed for Hypogammaglobulinemia (HCC) * STREP PNEUMO AB IGG 23 SEROTYPES PANEL(Performed 06/06/2018) Performed for Hypogammaglobulinemia (HCC) * MANNOSE-BINDING LECTIN(Performed 06/06/2018) Performed for Hypogammaglobulinemia (HCC) * IGA BLOOD(Performed 06/06/2018) Performed for Hypogammaglobulinemia (HCC) * IGE BLOOD(Performed 06/06/2018) Performed for Hypogammaglobulinemia (HCC) * IGG BLOOD(Performed 06/06/2018) Performed for Hypogammaglobulinemia (HCC) * IGM BLOOD(Performed 06/06/2018) Performed for Hypogammaglobulinemia (HCC) * COMPLEMENT TOTAL(Performed 06/06/2018) Performed for Hypogammaglobulinemia (HCC) * FLOW CYTOMETRY PADMAJA MEDIUM PANEL(Performed 05/31/2018) Performed for Hypogammaglobulinemia (HCC) * ALLERGEN RESPIRATORY PNL REG[place] ([place])(Performed 05/31/2018) Performed for Rhinitis, unspecified type * CBC W AUTO DIFFERENTIAL(Performed 05/31/2018) Performed for Hypogammaglobulinemia (HCC) * URINALYSIS - POINT OF CARE (AMB) [facility](Performed 05/08/2018) Performed for Acute cystitis without hematuria * MAMMO BILAT SCREENING(Performed 03/15/2018) Performed for Breast cancer screening * UT 3 COMP FOOT EXAM COMPLETED(Performed 03/07/2018) Performed for Breast cancer screening * HEMOGLOBIN A1C - POINT OF CARE (AMB) [facility](Performed 03/07/2018) Performed for Type 2 diabetes mellitus with hyperglycemia, without long-term current use of insulin(HCC) * HEPATIC FUNCTION PANEL(Performed 02/06/2018) Performed for Itching * B-TYPE NATRIURETIC PEPTIDE(Performed 02/06/2018) Performed for Edema extremities, Dyspnea, unspecified type * LIPID PROFILE(Performed 02/06/2018) Performed for Edema extremities, Dyspnea, unspecified type * UT INJ PERFLUTREN LIP MICROS,ML(Performed 01/14/2018) Performed for Coronary artery disease involving [place] coronary artery of [place] heart, angina presence unspecified * UT TTE W/DOPPLER, COMPLETE(Performed 01/14/2018) Performed for Coronary artery disease involving [place] coronary artery of [place] heart, angina presence unspecified * UT DRAIN/INJECT LARGE JOINT/BURSA(Performed 12/26/2017) Performed for Trochanteric bursitis of right hip * EYE EXAM(Performed 12/18/2017) * HEMOGLOBIN A1C - POINT OF CARE (AMB) [facility](Performed 11/08/2017) * LAB HISTORICAL RESULTS-ONBASE(Performed 10/31/2017) * XR PELVIS W RIGHT HIP 2VW(Performed 09/19/2017) Performed for H/O total knee replacement, right, Hip pain, acute, right * XR KNEE RIGHT 4VW OR MORE(Performed 09/19/2017) Performed for H/O total knee replacement, right * XR KNEE RIGHT 4VW OR MORE(Performed 07/04/2017) Performed for S/P total knee arthroplasty, right * HEMOGLOBIN A1C - POINT OF CARE (AMB) [facility](Performed 07/02/2017) * CARDIAC RHYTHM STRIP ORDER(Performed 06/11/2017) * GLUCOSE - POINT OF CARE(Performed 06/08/2017) * RENAL FUNCTION PANEL(Performed 06/08/2017) * GLUCOSE - POINT OF CARE(Performed 06/07/2017) * GLUCOSE - POINT OF CARE(Performed 06/07/2017) * GLUCOSE - POINT OF CARE(Performed 06/07/2017) * GLUCOSE - POINT OF CARE(Performed 06/07/2017) * RENAL FUNCTION PANEL(Performed 06/07/2017) * GLUCOSE - POINT OF CARE(Performed 06/06/2017) * GLUCOSE - POINT OF CARE(Performed 06/06/2017) * GLUCOSE - POINT OF CARE(Performed 06/06/2017) * GLUCOSE - POINT OF CARE(Performed 06/06/2017) * HEMOGLOBIN A1C(Performed 06/06/2017) * BASIC METABOLIC PANEL (CALCIUM TOTAL)(Performed 06/06/2017) * HGB HCT PANEL(Performed 06/06/2017) * GLUCOSE - POINT OF CARE(Performed 06/05/2017) * GLUCOSE - POINT OF CARE(Performed 06/05/2017) * US RETROPERITONEAL COMPLETE(Performed 06/05/2017) Performed for LUZ (acute kidney injury) (HCC) * CREATININE URINE RANDOM(Performed 06/05/2017) * LYTES (NA K CL) URINE RANDOM PANEL(Performed 06/05/2017) * URINALYSIS REFLEX MICROSCOPIC REFLEX CULTURE(Performed 06/05/2017) * EOSINOPHIL URINE SMEAR(Performed 06/05/2017) * GLUCOSE - POINT OF CARE(Performed 06/05/2017) * FERRITIN(Performed 06/05/2017) * IRON + TRANSFERRIN PANEL(Performed 06/05/2017) * CK BLOOD(Performed 06/05/2017) * HGB HCT PANEL(Performed 06/05/2017) * BASIC METABOLIC PANEL (CALCIUM TOTAL)(Performed 06/05/2017) * GLUCOSE - POINT OF CARE(Performed 06/04/2017) * GLUCOSE - POINT OF CARE(Performed 06/04/2017) * ENDOTRACHEAL TUBE NOTE(Performed 06/04/2017) * ARTHROPLASTY TOTAL KNEE HUYNH/NEPHEW(Performed 06/04/2017) Performed for Osteoarthritis of right knee, unspecified osteoarthritis type * BLOOD TYPE VERIFICATION(Performed 06/04/2017) * GLUCOSE - POINT OF CARE(Performed 06/04/2017) * TYPE + SCREEN PANEL(Performed 06/04/2017) * LAB RESULTS ORDER(Performed 05/15/2017) * URINALYSIS REFLEX MICROSCOPIC REFLEX CULTURE(Performed 05/14/2017) Performed for Pre-op testing * TRANSFERRIN(Performed 05/14/2017) Performed for Pre-op testing * COMPREHENSIVE METABOLIC PANEL(Performed 05/14/2017) Performed for Pre-op testing * CBC W AUTO DIFFERENTIAL(Performed 05/14/2017) Performed for Pre-op testing * CULTURE MSSA/MRSA(Performed 05/14/2017) Performed for Pre-op testing * COMPREHENSIVE METABOLIC PANEL(Performed 04/25/2017) * CULTURE URINE(Performed 04/17/2017) * XR KNEE RIGHT 2VW OR LESS(Performed 03/22/2017) * HEMOGLOBIN A1C - POINT OF CARE (AMB) [facility](Performed 03/01/2017) * LIPID PROFILE(Performed 03/01/2017) * MRI LUMBAR SPINE WO CONTRAST(Performed 02/09/2017) * MRI THORACIC SPINE WO CONTRAST(Performed 02/09/2017) * BASIC METABOLIC PANEL (CALCIUM TOTAL)(Performed 02/09/2017) * GLUCOSE ACCUCHECK(Performed 02/07/2017) * GLUCOSE ACCUCHECK(Performed 02/07/2017) * CBC W AUTO DIFFERENTIAL(Performed 02/07/2017) * BASIC METABOLIC PANEL (CALCIUM TOTAL)(Performed 02/07/2017) * CBC W AUTO DIFFERENTIAL(Performed 02/07/2017) * GLUCOSE ACCUCHECK(Performed 02/06/2017) * GLUCOSE ACCUCHECK(Performed 02/06/2017) * CT ABDOMEN PELVIS WO CONTRAST(Performed 02/06/2017) * GLUCOSE ACCUCHECK(Performed 02/06/2017) * CREATININE URINE RANDOM(Performed 02/06/2017) * SODIUM URINE RANDOM(Performed 02/06/2017) * CULTURE BLOOD(Performed 02/06/2017) * CBC W AUTO DIFFERENTIAL(Performed 02/06/2017) * BASIC METABOLIC PANEL (CALCIUM TOTAL)(Performed 02/06/2017) * CULTURE BLOOD(Performed 02/06/2017) * CBC W AUTO DIFFERENTIAL(Performed 02/06/2017) * GLUCOSE ACCUCHECK(Performed 02/05/2017) * CULTURE URINE(Performed 02/05/2017) * COMPREHENSIVE METABOLIC PANEL(Performed 02/05/2017) * CBC W AUTO DIFFERENTIAL(Performed 02/05/2017) * URINALYSIS REFLEX TO MICROSCOPIC NO CULTURE(Performed 02/05/2017) * CBC W AUTO DIFFERENTIAL(Performed 02/05/2017) * URINALYSIS - POINT OF CARE (AMB) [facility](Performed 02/05/2017) * EKG 12-LEAD(Performed 02/05/2017) * MAGNESIUM BLOOD(Performed 01/03/2017) * COMPREHENSIVE METABOLIC PANEL(Performed 01/03/2017) * PTT [facility](Performed 01/03/2017) * PT-INR [facility](Performed 01/03/2017) * CBC W AUTO DIFFERENTIAL(Performed 01/03/2017) * CBC W AUTO DIFFERENTIAL(Performed 01/03/2017) * XR THORACIC SPINE 2VW(Performed 12/20/2016) * URINALYSIS - POINT OF CARE (AMB) [facility](Performed 12/13/2016) * URINALYSIS AUTO - POINT OF CARE (AMB) [facility](Performed 12/06/2016) * CT ABDOMEN PELVIS WO CONTRAST(Performed 11/28/2016) * HEMOGLOBIN A1C - POINT OF CARE (AMB) [facility](Performed 10/30/2016) * CULTURE URINE(Performed 10/24/2016) * URINALYSIS AUTO - POINT OF CARE (AMB) SLU(Performed 10/24/2016) * XR THORACIC SPINE 2VW(Performed 10/18/2016) * URINALYSIS W/MICROSCOPIC NO CULTURE(Performed 09/27/2016) * CULTURE URINE(Performed 09/27/2016) * BASIC METABOLIC PANEL (CALCIUM TOTAL)(Performed 09/11/2016) * CULTURE URINE(Performed 09/08/2016) * BASIC METABOLIC PANEL (CALCIUM TOTAL)(Performed 08/29/2016) * CULTURE URINE(Performed 08/24/2016) * LAB HISTORICAL RESULTS-ONBASE(Performed 08/04/2016) * LAB HISTORICAL RESULTS-ONBASE(Performed 08/04/2016) * BASIC METABOLIC PANEL (CALCIUM TOTAL)(Performed 07/18/2016) * BASIC METABOLIC PANEL (CALCIUM TOTAL)(Performed 07/05/2016) * BASIC METABOLIC PANEL (CALCIUM TOTAL)(Performed 07/04/2016) * LIPID PROFILE(Performed 07/04/2016) * MICROALB/CREAT RATIO URINE RANDOM PANEL(Performed 07/04/2016) * URINALYSIS AUTO - POINT OF CARE (AMB) SLU(Performed 06/20/2016) * GLUCOSE ACCUCHECK(Performed 06/10/2016) * CBC W AUTO DIFFERENTIAL(Performed 06/10/2016) * BASIC METABOLIC PANEL (CALCIUM TOTAL)(Performed 06/10/2016) * CBC W AUTO DIFFERENTIAL(Performed 06/10/2016) * GLUCOSE ACCUCHECK(Performed 06/10/2016) * GLUCOSE ACCUCHECK(Performed 06/10/2016) * GLUCOSE ACCUCHECK(Performed 06/10/2016) * GLUCOSE ACCUCHECK(Performed 06/09/2016) * GLUCOSE ACCUCHECK(Performed 06/09/2016) * GLUCOSE ACCUCHECK(Performed 06/09/2016) * GLUCOSE ACCUCHECK(Performed 06/09/2016) * BASIC METABOLIC PANEL (CALCIUM TOTAL)(Performed 06/09/2016) * CBC W/O DIFFERENTIAL(Performed 06/09/2016) * GLUCOSE ACCUCHECK(Performed 06/08/2016) * CBC W AUTO DIFFERENTIAL(Performed 06/08/2016) * CBC W AUTO DIFFERENTIAL(Performed 06/08/2016) * CT ABDOMEN PELVIS WO CONTRAST(Performed 06/08/2016) * CULTURE URINE(Performed 06/08/2016) * URINALYSIS REFLEX TO MICROSCOPIC NO CULTURE(Performed 06/08/2016) * PTT [facility]H(Performed 06/08/2016) * PT-INR [facility](Performed 06/08/2016) * LIPASE BLOOD(Performed 06/08/2016) * COMPREHENSIVE METABOLIC PANEL(Performed 06/08/2016) * CBC W AUTO DIFFERENTIAL(Performed 06/08/2016) * CBC W AUTO DIFFERENTIAL(Performed 06/08/2016) * TYPE + SCREEN PANEL(Performed 06/08/2016) * GLUCOSE ACCUCHECK(Performed 06/05/2016) * CULTURE URINE(Performed 06/05/2016) * PATHOLOGY TISSUE(Performed 06/05/2016) * STONE ANALYSIS QUANT(Performed 06/05/2016) * STONE ANALYSIS QUANT(Performed 06/05/2016) * FL CYSTOGRAM(Performed 06/05/2016) * GLUCOSE ACCUCHECK(Performed 06/05/2016) * BASIC METABOLIC PANEL (CALCIUM TOTAL)(Performed 06/05/2016) * EKG 12-LEAD(Performed 05/30/2016) * URINALYSIS REFLEX TO MICROSCOPIC NO CULTURE(Performed 05/29/2016) * CULTURE URINE(Performed 05/29/2016) * BASIC METABOLIC PANEL (CALCIUM TOTAL)(Performed 05/29/2016) * CULTURE URINE(Performed 05/12/2016) * URINALYSIS REFLEX TO MICROSCOPIC NO CULTURE(Performed 04/11/2016) * CULTURE URINE(Performed 04/11/2016) * CULTURE URINE(Performed 04/05/2016) * CT UROGRAM(Performed 04/05/2016) * CREATININE BLOOD - POCT (IP) [facility](Performed 04/05/2016) * LAB MISC TEST(Performed 03/08/2016) * CULTURE URINE(Performed 03/07/2016) * URINALYSIS AUTO - POINT OF CARE (AMB) SLU(Performed 03/07/2016) * CULTURE URINE(Performed 01/31/2016) * LIPID PROFILE(Performed 01/28/2016) * HEMOGLOBIN A1C(Performed 01/28/2016) * CULTURE URINE(Performed 01/03/2016) * URINALYSIS REFLEX TO MICROSCOPIC NO CULTURE(Performed 12/15/2015) * URINALYSIS - POINT OF CARE (AMB) SLU(Performed 12/14/2015) * EVENT MONITOR(Performed 12/03/2015) * TISSUE TRANSGLUTAMINASE AB IGA(Performed 11/10/2015) * VITAMIN D 1,25 DIHYDROXY(Performed 11/10/2015) * FOLATE(Performed 11/10/2015) * VITAMIN B12(Performed 11/10/2015) * TSH(Performed 11/10/2015) * IGA BLOOD(Performed 11/10/2015) * MAGNESIUM BLOOD(Performed 11/10/2015) * COMPREHENSIVE METABOLIC PANEL(Performed 11/10/2015) * CBC W AUTO DIFFERENTIAL(Performed 11/10/2015) * CBC W AUTO DIFFERENTIAL(Performed 11/10/2015) * ENDOSCOPY, COLON, SCREENING(Performed 11/04/2015) * PATHOLOGY TISSUE EXAM (STL)(Performed 11/04/2015) Performed for Gastroesophageal reflux disease, esophagitis presence not specified, History of colonic polyps * CULTURE DUODENAL ASPIRATE QUANT(Performed 11/04/2015) Performed for Gastroesophageal reflux disease, esophagitis presence not specified, History of colonic polyps * GRAM STAIN SMEAR(Performed 11/04/2015) Performed for Gastroesophageal reflux disease, esophagitis presence not specified, History of colonic polyps * COLONOSCOPY BIOPSY (ANY METHOD)(Performed 11/04/2015) Performed for Gastroesophageal reflux disease, esophagitis presence not specified, History of colonic polyps * ESOPHAGOGASTRODUODENOSCOPY (EGD) BIOPSY(Performed 11/04/2015) Performed for Gastroesophageal reflux disease, esophagitis presence not specified, History of colonic polyps * ESOPHAGOGASTRODUODENOSCOPY WITH SMALL BOWEL APSIRATE(Performed 11/04/2015) Performed for Gastroesophageal reflux disease, esophagitis presence not specified, History of colonic polyps * COLONOSCOPY SCREEN(Performed 11/04/2015) Performed for Gastroesophageal reflux disease, esophagitis presence not specified, History of colonic polyps * ESOPHAGOGASTRODUODENOSCOPY (EGD) DIAGNOSTIC(Performed 11/04/2015) Performed for Gastroesophageal reflux disease, esophagitis presence not specified, History of colonic polyps * EGD(Performed 11/04/2015) * GLUCOSE - POINT OF CARE(Performed 11/04/2015) * URINALYSIS - POINT OF CARE (AMB) SLU(Performed 10/19/2015) * CULTURE URINE COMPREHENSIVE(Performed 10/19/2015) * CT HEAD WO CONTRAST(Performed 10/06/2015) * BASIC METABOLIC PANEL (CALCIUM TOTAL)(Performed 10/06/2015) * CBC W AUTO DIFFERENTIAL(Performed 10/06/2015) * CBC W AUTO DIFFERENTIAL(Performed 10/06/2015) * GLUCOSE - POINT OF CARE (AMB) SLU(Performed 10/06/2015) * GLUCOSE - POINT OF CARE (AMB) SLU(Performed 10/06/2015) * GLUCOSE ACCUCHECK(Performed 10/06/2015) * CULTURE URINE(Performed 09/29/2015) * CULTURE URINE(Performed 09/15/2015) * HEMOGLOBIN A1C(Performed 09/08/2015) * URINALYSIS - POINT OF CARE (AMB) SLU(Performed 09/08/2015) * URINALYSIS - POINT OF CARE (AMB) SLU(Performed 07/15/2015) * URINALYSIS - POINT OF CARE (AMB) SLU(Performed 06/17/2015) * CULTURE URINE COMPREHENSIVE(Performed 06/17/2015) * CULTURE URINE(Performed 06/04/2015) * CULTURE URINE(Performed 05/04/2015) * URINALYSIS - POINT OF CARE (AMB) SLU(Performed 05/04/2015) * NM LUNG VENT AND PERFUSION(Performed 04/23/2015) * ECHO COMPLETE(Performed 04/23/2015) * CBC W AUTO DIFFERENTIAL(Performed 04/01/2015) * CBC W AUTO DIFFERENTIAL(Performed 04/01/2015) * CULTURE URINE(Performed 03/22/2015) * XR TOE LEFT 2VW OR MORE(Performed 03/08/2015) * HEMOGLOBIN A1C(Performed 01/11/2015) * COMPLETE PFT W/WO BRONCHODILATOR(Performed 11/18/2014) * GLUCOSE ACCUCHECK(Performed 10/06/2014) * GLUCOSE ACCUCHECK(Performed 10/06/2014) * GLUCOSE ACCUCHECK(Performed 10/05/2014) * GLUCOSE ACCUCHECK(Performed 10/05/2014) * GLUCOSE ACCUCHECK(Performed 10/05/2014) * GLUCOSE ACCUCHECK(Performed 10/05/2014) * GLUCOSE ACCUCHECK(Performed 10/04/2014) * GLUCOSE ACCUCHECK(Performed 10/04/2014) * GLUCOSE ACCUCHECK(Performed 10/04/2014) * GLUCOSE ACCUCHECK(Performed 10/04/2014) * GLUCOSE ACCUCHECK(Performed 10/03/2014) * GLUCOSE ACCUCHECK(Performed 10/03/2014) * GLUCOSE ACCUCHECK(Performed 10/03/2014) * GLUCOSE ACCUCHECK(Performed 10/03/2014) * GLUCOSE ACCUCHECK(Performed 10/02/2014) * GLUCOSE ACCUCHECK(Performed 10/02/2014) * COMPREHENSIVE METABOLIC PANEL(Performed 10/02/2014) * LIPASE BLOOD(Performed 10/02/2014) * CBC W AUTO DIFFERENTIAL(Performed 10/02/2014) * CBC W AUTO DIFFERENTIAL(Performed 10/02/2014) * GLUCOSE ACCUCHECK(Performed 10/02/2014) * GLUCOSE ACCUCHECK(Performed 10/02/2014) * LITHIUM LEVEL(Performed 10/01/2014) * GLUCOSE ACCUCHECK(Performed 10/01/2014) * GLUCOSE ACCUCHECK(Performed 10/01/2014) * GLUCOSE ACCUCHECK(Performed 10/01/2014) * LITHIUM LEVEL(Performed 10/01/2014) * GLUCOSE ACCUCHECK(Performed 10/01/2014) * GLUCOSE ACCUCHECK(Performed 09/30/2014) * GLUCOSE ACCUCHECK(Performed 09/30/2014) * LITHIUM LEVEL(Performed 09/17/2014) * BASIC METABOLIC PANEL (CALCIUM TOTAL)(Performed 09/17/2014) * LITHIUM LEVEL(Performed 09/04/2014) * BASIC METABOLIC PANEL (CALCIUM TOTAL)(Performed 09/04/2014) * GLUCOSE ACCUCHECK(Performed 2014) * GLUCOSE ACCUCHECK(Performed 2014) * CK + CKMB PANEL(Performed 2014) * TROPONIN I(Performed 2014) * BASIC METABOLIC PANEL (CALCIUM TOTAL)(Performed 2014) * CBC W AUTO DIFFERENTIAL(Performed 2014) * CBC W AUTO DIFFERENTIAL(Performed 2014) * EKG 12-LEAD(Performed 2014) * GLUCOSE ACCUCHECK(Performed 08/12/2014) * INFLUENZA A+B PCR(Performed 08/12/2014) * INFLUENZA A+B ANTIGEN RAPID(Performed 08/12/2014) * XR CHEST 2VW(Performed 08/12/2014) * BASIC METABOLIC PANEL (CALCIUM TOTAL)(Performed 08/12/2014) * CBC W AUTO DIFFERENTIAL(Performed 08/12/2014) * CBC W AUTO DIFFERENTIAL(Performed 08/12/2014) * EKG 12-LEAD(Performed 08/12/2014) * FERRITIN(Performed 08/10/2014) * IRON BLOOD(Performed 08/10/2014) * CBC W AUTO DIFFERENTIAL(Performed 08/10/2014) * CBC W AUTO DIFFERENTIAL(Performed 08/10/2014) * INFLUENZA A+B - POINT OF CARE (AMB) SLU(Performed 08/10/2014) * LITHIUM LEVEL(Performed 07/08/2014) * TSH(Performed 07/08/2014) * BASIC METABOLIC PANEL (CALCIUM TOTAL)(Performed 07/08/2014) * CULTURE URINE(Performed 07/02/2014) * URINALYSIS - POINT OF CARE (AMB) SLU(Performed 07/02/2014) * CULTURE URINE(Performed 06/18/2014) * URINALYSIS - POINT OF CARE (AMB) SLU(Performed 06/17/2014) * CULTURE URINE(Performed 06/12/2014) * XR KNEE RIGHT 4VW OR MORE(Performed 05/14/2014) Performed for Pain in joint, lower leg, right * CULTURE URINE(Performed 04/08/2014) * URINALYSIS - POINT OF CARE (AMB) SLU(Performed 04/08/2014) * LITHIUM LEVEL(Performed 04/01/2014) * TSH(Performed 04/01/2014) * BASIC METABOLIC PANEL (CALCIUM TOTAL)(Performed 04/01/2014) * URINALYSIS W/MICROSCOPIC NO CULTURE(Performed 03/30/2014) * GLUCOSE ACCUCHECK(Performed 03/30/2014) * GLUCOSE ACCUCHECK(Performed 03/29/2014) * TROPONIN I(Performed 03/28/2014) * CK BLOOD(Performed 03/28/2014) * LITHIUM LEVEL(Performed 03/28/2014) * GLUCOSE ACCUCHECK(Performed 03/28/2014) * EKG 12-LEAD(Performed 03/28/2014) * LITHIUM LEVEL(Performed 03/27/2014) * COMPREHENSIVE METABOLIC PANEL(Performed 03/27/2014) * GLUCOSE ACCUCHECK(Performed 03/27/2014) * GLUCOSE ACCUCHECK(Performed 03/27/2014) * GLUCOSE ACCUCHECK(Performed 03/26/2014) * GLUCOSE ACCUCHECK(Performed 03/26/2014) * GLUCOSE ACCUCHECK(Performed 03/26/2014) * GLUCOSE ACCUCHECK(Performed 03/26/2014) * GLUCOSE ACCUCHECK(Performed 03/26/2014) * XR ABDOMEN KUB(Performed 03/25/2014) * GLUCOSE ACCUCHECK(Performed 03/25/2014) * GLUCOSE ACCUCHECK(Performed 03/25/2014) * GLUCOSE ACCUCHECK(Performed 03/24/2014) * GLUCOSE ACCUCHECK(Performed 03/24/2014) * GLUCOSE ACCUCHECK(Performed 03/23/2014) * GLUCOSE ACCUCHECK(Performed 03/23/2014) * GLUCOSE ACCUCHECK(Performed 03/23/2014) * GLUCOSE ACCUCHECK(Performed 03/22/2014) * GLUCOSE ACCUCHECK(Performed 03/21/2014) * GLUCOSE ACCUCHECK(Performed 03/21/2014) * GLUCOSE ACCUCHECK(Performed 03/21/2014) * LITHIUM LEVEL(Performed 03/21/2014) * COMPREHENSIVE METABOLIC PANEL(Performed 03/21/2014) * GLUCOSE ACCUCHECK(Performed 03/21/2014) * URINALYSIS W/MICROSCOPIC NO CULTURE(Performed 03/20/2014) * GLUCOSE ACCUCHECK(Performed 03/20/2014) * GLUCOSE ACCUCHECK(Performed 03/20/2014) * GLUCOSE ACCUCHECK(Performed 03/20/2014) * GLUCOSE ACCUCHECK(Performed 03/19/2014) * GLUCOSE ACCUCHECK(Performed 03/19/2014) * GLUCOSE ACCUCHECK(Performed 03/19/2014) * HEPATIC FUNCTION PANEL(Performed 03/19/2014) * LITHIUM LEVEL(Performed 03/19/2014) * BASIC METABOLIC PANEL (CALCIUM TOTAL)(Performed 03/19/2014) * GLUCOSE ACCUCHECK(Performed 03/19/2014) * GLUCOSE ACCUCHECK(Performed 03/18/2014) * LITHIUM LEVEL(Performed 03/17/2014) * COMPREHENSIVE METABOLIC PANEL(Performed 03/17/2014) * CBC W AUTO DIFFERENTIAL(Performed 03/17/2014) * CBC W AUTO DIFFERENTIAL(Performed 03/17/2014) * GLUCOSE ACCUCHECK(Performed 03/09/2014) * GLUCOSE ACCUCHECK(Performed 03/09/2014) * CBC W AUTO DIFFERENTIAL(Performed 03/09/2014) * CBC W AUTO DIFFERENTIAL(Performed 03/09/2014) * BASIC METABOLIC PANEL (CALCIUM TOTAL)(Performed 03/09/2014) * GLUCOSE ACCUCHECK(Performed 03/08/2014) * GLUCOSE ACCUCHECK(Performed 03/08/2014) * GLUCOSE ACCUCHECK(Performed 03/08/2014) * GLUCOSE ACCUCHECK(Performed 03/08/2014) * BASIC METABOLIC PANEL (CALCIUM TOTAL)(Performed 03/08/2014) * CBC W AUTO DIFFERENTIAL(Performed 03/08/2014) * CBC W AUTO DIFFERENTIAL(Performed 03/08/2014) * GLUCOSE ACCUCHECK(Performed 03/07/2014) * GLUCOSE ACCUCHECK(Performed 03/07/2014) * GLUCOSE ACCUCHECK(Performed 03/07/2014) * GLUCOSE ACCUCHECK(Performed 03/07/2014) * BASIC METABOLIC PANEL (CALCIUM TOTAL)(Performed 03/07/2014) * CBC W AUTO DIFFERENTIAL(Performed 03/07/2014) * CBC W AUTO DIFFERENTIAL(Performed 03/07/2014) * GLUCOSE ACCUCHECK(Performed 03/06/2014) * GLUCOSE ACCUCHECK(Performed 03/06/2014) * GLUCOSE ACCUCHECK(Performed 03/06/2014) * CK BLOOD(Performed 03/06/2014) * GLUCOSE ACCUCHECK(Performed 03/06/2014) * CBC W AUTO DIFFERENTIAL(Performed 03/06/2014) * CBC W AUTO DIFFERENTIAL(Performed 03/06/2014) * BASIC METABOLIC PANEL (CALCIUM TOTAL)(Performed 03/06/2014) * GLUCOSE ACCUCHECK(Performed 03/05/2014) * GLUCOSE ACCUCHECK(Performed 03/05/2014) * GLUCOSE ACCUCHECK(Performed 03/05/2014) * CBC W AUTO DIFFERENTIAL(Performed 03/05/2014) * DIFFERENTIAL MANUAL(Performed 03/05/2014) * CBC W AUTO DIFFERENTIAL(Performed 03/05/2014) * COMPREHENSIVE METABOLIC PANEL(Performed 03/05/2014) * GLUCOSE ACCUCHECK(Performed 03/04/2014) * GLUCOSE ACCUCHECK(Performed 03/04/2014) * EKG 12-LEAD(Performed 03/04/2014) * LITHIUM LEVEL(Performed 02/23/2014) * BASIC METABOLIC PANEL (CALCIUM TOTAL)(Performed 02/23/2014) * URINALYSIS W/MICROSCOPIC NO CULTURE(Performed 02/04/2014) * VAS ARTERIAL ANKLE ARM INDEX(Performed 01/29/2014) * VAS LEFT ARTERIAL DUPLEX LE(Performed 01/29/2014) * T4 FREE(Performed 12/31/2013) * LITHIUM LEVEL(Performed 12/31/2013) * TSH(Performed 12/31/2013) * BASIC METABOLIC PANEL (CALCIUM TOTAL)(Performed 12/31/2013) * GLUCOSE ACCUCHECK(Performed 12/24/2013) * LITHIUM LEVEL(Performed 12/24/2013) * GLUCOSE ACCUCHECK(Performed 12/24/2013) * GLUCOSE ACCUCHECK(Performed 12/23/2013) * GLUCOSE ACCUCHECK(Performed 12/23/2013) * GLUCOSE ACCUCHECK(Performed 12/23/2013) * GLUCOSE ACCUCHECK(Performed 12/23/2013) * GLUCOSE ACCUCHECK(Performed 12/22/2013) * GLUCOSE ACCUCHECK(Performed 12/22/2013) * CT ABDOMEN PELVIS W CONTRAST(Performed 12/22/2013) * GLUCOSE ACCUCHECK(Performed 12/22/2013) * GLUCOSE ACCUCHECK(Performed 12/22/2013) * GLUCOSE ACCUCHECK(Performed 12/21/2013) * GLUCOSE ACCUCHECK(Performed 12/21/2013) * GLUCOSE ACCUCHECK(Performed 12/21/2013) * GLUCOSE ACCUCHECK(Performed 12/21/2013) * URINALYSIS W/MICROSCOPIC NO CULTURE(Performed 12/20/2013) * GLUCOSE ACCUCHECK(Performed 12/20/2013) * GLUCOSE ACCUCHECK(Performed 12/20/2013) * GLUCOSE ACCUCHECK(Performed 12/20/2013) * DRUG ABUSE PANEL 10-20+ETHANOL URINE NO CONFIRM(Performed 12/19/2013) * HCG URINE QUALITATIVE - POCT (IP) [facility]H(Performed 12/19/2013) * HCG URINE QUALITATIVE - POCT (IP) [facility](Performed 12/19/2013) * TRICYCLICS SCREEN BLOOD(Performed 12/19/2013) * SALICYLATE LEVEL BLOOD(Performed 12/19/2013) * BASIC METABOLIC PANEL (CALCIUM TOTAL)(Performed 12/19/2013) * ALCOHOL ETHYL BLOOD(Performed 12/19/2013) * ACETAMINOPHEN LEVEL(Performed 12/19/2013) * CBC W AUTO DIFFERENTIAL(Performed 12/19/2013) * CBC W AUTO DIFFERENTIAL(Performed 12/19/2013) * EKG 12-LEAD(Performed 12/19/2013) * XR THORACOLUMBAR SPINE 2VW(Performed 11/26/2013) * XR KNEE RIGHT 2VW OR LESS(Performed 11/26/2013) * CULTURE URINE(Performed 11/19/2013) * XR THORACOLUMBAR SPINE 2VW(Performed 10/29/2013) * CULTURE URINE(Performed 10/23/2013) * URINALYSIS - POINT OF CARE (AMB) [facility]U(Performed 10/23/2013) * HEMOGLOBIN A1C(Performed 10/14/2013) * VITAMIN D 25-HYDROXY(Performed 10/14/2013) * CULTURE URINE(Performed 10/14/2013) * XR THORACOLUMBAR SPINE 2VW(Performed 10/01/2013) * FOLATE(Performed 09/24/2013) * VITAMIN B12(Performed 09/24/2013) * HEPATITIS C ANTIBODY(Performed 09/24/2013) * HEPATIC FUNCTION PANEL(Performed 09/24/2013) * AMMONIA(Performed 09/24/2013) * GLUCOSE ACCUCHECK(Performed 09/10/2013) * GLUCOSE ACCUCHECK(Performed 09/10/2013) * BASIC METABOLIC PANEL (CALCIUM TOTAL)(Performed 09/10/2013) * PHOSPHORUS BLOOD(Performed 09/10/2013) * MAGNESIUM BLOOD(Performed 09/10/2013) * CBC W/O DIFFERENTIAL(Performed 09/10/2013) * GLUCOSE ACCUCHECK(Performed 09/09/2013) * GLUCOSE ACCUCHECK(Performed 09/09/2013) * GLUCOSE ACCUCHECK(Performed 09/09/2013) * URINALYSIS REFLEX TO MICROSCOPIC NO CULTURE(Performed 09/09/2013) * CULTURE URINE(Performed 09/09/2013) * BASIC METABOLIC PANEL (CALCIUM TOTAL)(Performed 09/09/2013) * MAGNESIUM BLOOD(Performed 09/09/2013) * PHOSPHORUS BLOOD(Performed 09/09/2013) * CBC W/O DIFFERENTIAL(Performed 09/09/2013) * GLUCOSE ACCUCHECK(Performed 09/09/2013) * GLUCOSE ACCUCHECK(Performed 09/08/2013) * GLUCOSE ACCUCHECK(Performed 09/08/2013) * FL UGI W SM BOWEL FOLLOW THRU(Performed 09/08/2013) * GLUCOSE ACCUCHECK(Performed 09/08/2013) * XR ABDOMEN KUB PORTABLE(Performed 09/08/2013) * BASIC METABOLIC PANEL (CALCIUM TOTAL)(Performed 09/08/2013) * PHOSPHORUS BLOOD(Performed 09/08/2013) * MAGNESIUM BLOOD(Performed 09/08/2013) * CBC W/O DIFFERENTIAL(Performed 09/08/2013) * GLUCOSE ACCUCHECK(Performed 09/07/2013) * GLUCOSE ACCUCHECK(Performed 09/07/2013) * XR ABDOMEN KUB PORTABLE(Performed 09/07/2013) * XR THORACOLUMBAR SPINE 2VW(Performed 09/07/2013) * GLUCOSE ACCUCHECK(Performed 09/07/2013) * PHOSPHORUS BLOOD(Performed 09/07/2013) * GLUCOSE ACCUCHECK(Performed 09/07/2013) * MAGNESIUM BLOOD(Performed 09/07/2013) * BASIC METABOLIC PANEL (CALCIUM TOTAL)(Performed 09/07/2013) * CBC W/O DIFFERENTIAL(Performed 09/07/2013) * GLUCOSE ACCUCHECK(Performed 09/06/2013) * COMPREHENSIVE METABOLIC PANEL(Performed 09/06/2013) * CBC W AUTO DIFFERENTIAL(Performed 09/06/2013) * XR ABDOMEN KUB PORTABLE(Performed 09/06/2013) * GLUCOSE ACCUCHECK(Performed 09/06/2013) * CBC W/O DIFFERENTIAL(Performed 09/06/2013) * GLUCOSE ACCUCHECK(Performed 09/06/2013) * CBC W/O DIFFERENTIAL(Performed 09/06/2013) * XR CHEST 1VW PORTABLE(Performed 09/06/2013) * GLUCOSE ACCUCHECK(Performed 09/06/2013) * BASIC METABOLIC PANEL (CALCIUM TOTAL)(Performed 09/06/2013) * PTT [facility](Performed 09/06/2013) * PT-INR [facility](Performed 09/06/2013) * CBC W/O DIFFERENTIAL(Performed 09/06/2013) * BLOOD GASES ARTERIAL(Performed 09/06/2013) * CBC W AUTO DIFFERENTIAL(Performed 09/05/2013) * IR FL GUIDE NEEDLE PLACEMENT(Performed 09/05/2013) * IR ANGIO EXTREMITY PROCEDURAL CODE(Performed 09/05/2013) * IR ANGIO EXTREMITY LEFT(Performed 09/05/2013) * GLUCOSE - POINT OF CARE (AMB) SLU(Performed 09/05/2013) * GLUCOSE - POINT OF CARE (AMB) [facility](Performed 09/05/2013) * GLUCOSE ACCUCHECK(Performed 09/05/2013) * DRUG ABUSE PANEL 10-20+ETHANOL URINE NO CONFIRM(Performed 09/05/2013) * URINALYSIS REFLEX TO MICROSCOPIC NO CULTURE(Performed 09/05/2013) * CT CHEST ABDOMEN PELVIS W CONT(Performed 09/05/2013) * CT LUMBAR SPINE WO CONTRAST(Performed 09/05/2013) * CT CERVICAL SPINE WO CONTRAST(Performed 09/05/2013) * CT HEAD WO CONTRAST(Performed 09/05/2013) * CT THORACIC SPINE WO CONTRAST(Performed 09/05/2013) * XR CHEST 1VW PORTABLE(Performed 09/05/2013) * TYPE + SCREEN PANEL(Performed 09/05/2013) * ALCOHOL ETHYL BLOOD(Performed 09/05/2013) * LIPASE BLOOD(Performed 09/05/2013) * AMYLASE BLOOD(Performed 09/05/2013) * COMPREHENSIVE METABOLIC PANEL(Performed 09/05/2013) * PHOSPHORUS BLOOD(Performed 09/05/2013) * MAGNESIUM BLOOD(Performed 09/05/2013) * PT-INR [facility](Performed 09/05/2013) * CBC W AUTO DIFFERENTIAL(Performed 09/05/2013) * CULTURE URINE(Performed 07/02/2013) * CULTURE URINE(Performed 06/17/2013) * CARDIAC RHYTHM STRIP ORDER(Performed 06/11/2013) * GLUCOSE - POINT OF CARE(Performed 06/09/2013) * CYSTOSCOPY WITH HYDRODISTENSION BLADDER(Performed 06/09/2013) Performed for Urinary tract infection, site not specified * GLUCOSE - POINT OF CARE(Performed 06/09/2013) * EKG 12-LEAD(Performed 06/06/2013) * BASIC METABOLIC PANEL (CALCIUM TOTAL)(Performed 05/30/2013) Performed for Preoperative examination, unspecified * CBC W/O DIFFERENTIAL(Performed 05/30/2013) Performed for Preoperative examination, unspecified * CYTOLOGY URINE(Performed 05/07/2013) * CYTOLOGY NON-PROJECT PORTFOLIO ANALYST PANEL (STL)(Performed 04/25/2013) * CULTURE URINE COMPREHENSIVE(Performed 04/22/2013) * STONE ANALYSIS QUANT(Performed 04/18/2013) * CULTURE URINE(Performed 04/18/2013) * LAB HISTORICAL RESULTS-ONBASE(Performed 04/18/2013) * LAB HISTORICAL RESULTS-ONBASE(Performed 04/18/2013) * GLUCOSE ACCUCHECK(Performed 03/15/2013) * CT CYSTOGRAM(Performed 03/15/2013) * GLUCOSE ACCUCHECK(Performed 03/15/2013) * PHOSPHORUS BLOOD(Performed 03/15/2013) * MAGNESIUM BLOOD(Performed 03/15/2013) * BASIC METABOLIC PANEL (CALCIUM TOTAL)(Performed 03/15/2013) * CBC W AUTO DIFFERENTIAL(Performed 03/15/2013) * GLUCOSE ACCUCHECK(Performed 03/14/2013) * GLUCOSE ACCUCHECK(Performed 03/14/2013) * GLUCOSE ACCUCHECK(Performed 03/14/2013) * PHOSPHORUS BLOOD(Performed 03/14/2013) * MAGNESIUM BLOOD(Performed 03/14/2013) * BASIC METABOLIC PANEL (CALCIUM TOTAL)(Performed 03/14/2013) * CBC W AUTO DIFFERENTIAL(Performed 03/14/2013) * GLUCOSE ACCUCHECK(Performed 03/14/2013) * GLUCOSE ACCUCHECK(Performed 03/14/2013) * URINALYSIS W/MICROSCOPIC NO CULTURE(Performed 03/13/2013) * CULTURE URINE(Performed 03/13/2013) * COMPREHENSIVE METABOLIC PANEL(Performed 03/13/2013) * PHOSPHORUS BLOOD(Performed 03/13/2013) * MAGNESIUM BLOOD(Performed 03/13/2013) * PT-INR [facility](Performed 03/13/2013) * CBC W AUTO DIFFERENTIAL(Performed 03/13/2013) * URINALYSIS - POINT OF CARE (AMB) [facility](Performed 03/13/2013) * GLUCOSE - POINT OF CARE(Performed 03/12/2013) * GLUCOSE - POINT OF CARE(Performed 03/11/2013) * GLUCOSE - POINT OF CARE(Performed 03/11/2013) * GLUCOSE - POINT OF CARE(Performed 03/11/2013) * GLUCOSE - POINT OF CARE(Performed 03/11/2013) * BASIC METABOLIC PANEL (CALCIUM TOTAL)(Performed 03/11/2013) * CBC W AUTO DIFFERENTIAL(Performed 03/11/2013) * GLUCOSE - POINT OF CARE(Performed 03/10/2013) * GLUCOSE - POINT OF CARE(Performed 03/10/2013) * CT ABDOMEN PELVIS WO CONTRAST(Performed 03/10/2013) Performed for Flank pain * XR ABD OBSTR SERIES W CHEST 1VW(Performed 03/10/2013) Performed for Flank pain * GLUCOSE - POINT OF CARE(Performed 03/10/2013) * GLUCOSE - POINT OF CARE(Performed 03/09/2013) * GLUCOSE - POINT OF CARE(Performed 03/09/2013) * URINALYSIS REFLEX TO MICROSCOPIC NO CULTURE(Performed 03/09/2013) * CULTURE URINE(Performed 03/09/2013) * GLUCOSE - POINT OF CARE(Performed 03/09/2013) * GLUCOSE - POINT OF CARE(Performed 03/09/2013) * BASIC METABOLIC PANEL (CALCIUM TOTAL)(Performed 03/09/2013) * CBC W AUTO DIFFERENTIAL(Performed 03/09/2013) * GLUCOSE - POINT OF CARE(Performed 03/08/2013) * GLUCOSE - POINT OF CARE(Performed 03/08/2013) * GLUCOSE - POINT OF CARE(Performed 03/08/2013) * CBC W AUTO DIFFERENTIAL(Performed 03/08/2013) * BASIC METABOLIC PANEL (CALCIUM TOTAL)(Performed 03/08/2013) * GLUCOSE - POINT OF CARE(Performed 03/08/2013) * CT ABDOMEN PELVIS WO CONTRAST(Performed 03/07/2013) Performed for Flank pain * CULTURE URINE(Performed 03/07/2013) * URINALYSIS REFLEX TO MICROSCOPIC NO CULTURE(Performed 03/07/2013) * LIPASE BLOOD(Performed 03/07/2013) * COMPREHENSIVE METABOLIC PANEL(Performed 03/07/2013) * CBC W AUTO DIFFERENTIAL(Performed 03/07/2013) * XR KNEE RIGHT 4VW OR MORE(Performed 03/05/2013) * URINALYSIS REFLEX TO MICROSCOPIC NO CULTURE(Performed 03/03/2013) * URINALYSIS REFLEX TO MICROSCOPIC NO CULTURE(Performed 03/03/2013) * CULTURE URINE(Performed 03/03/2013) * LIPID PROFILE(Performed 01/28/2013) * T3 FREE(Performed 01/28/2013) * T4 FREE(Performed 01/28/2013) * TSH(Performed 01/28/2013) * LIPID PROFILE(Performed 12/18/2012) * EVENT MONITOR(Performed 12/13/2012) * PT-INR [facility](Performed 11/04/2012) * BASIC METABOLIC PANEL (CALCIUM TOTAL)(Performed 11/04/2012) * CBC W/O DIFFERENTIAL(Performed 11/04/2012) * CCL CORONARY ANGIOGRAM(Performed 11/04/2012) * DERMATOPATHOLOGY(Performed 10/31/2012) * COMPREHENSIVE METABOLIC PANEL(Performed 10/31/2012) * LIPID PROFILE(Performed 10/31/2012) * PT-INR [facility](Performed 10/31/2012) * CBC W AUTO DIFFERENTIAL(Performed 10/31/2012) * EKG 12-LEAD(Performed 10/29/2012) * ECHO STRESS W DOBUTAMINE(Performed 07/30/2012) * ECHO DOPPLER ONLY(Performed 07/30/2012) * XR CHEST 2VW(Performed 07/25/2012) * TSH(Performed 07/25/2012) * BASIC METABOLIC PANEL (CALCIUM TOTAL)(Performed 07/25/2012) * CBC W AUTO DIFFERENTIAL(Performed 07/25/2012) * HOLTER MONITOR(Performed 07/12/2012) * CULTURE URINE(Performed 07/02/2012) * LIPID PROFILE(Performed 07/02/2012) * HEMOGLOBIN A1C(Performed 07/02/2012) * CULTURE URINE(Performed 03/05/2012) * NM BRAIN IMAGING SPECT(Performed 01/18/2012) * EKG 12-LEAD(Performed 12/15/2011) * B-TYPE NATRIURETIC PEPTIDE(Performed 12/01/2011) * COMPREHENSIVE METABOLIC PANEL(Performed 12/01/2011) * CBC W AUTO DIFFERENTIAL(Performed 12/01/2011) * LIPID PROFILE(Performed 12/01/2011) * CULTURE URINE(Performed 10/17/2011) * CULTURE URINE(Performed 09/11/2011) * CULTURE URINE(Performed 08/25/2011) * LAB HISTORICAL RESULTS-ONBASE(Performed 08/15/2011) * CARDIAC RHYTHM STRIP ORDER(Performed 07/19/2011) * GLUCOSE - POINT OF CARE(Performed 07/18/2011) * GLUCOSE - POINT OF CARE(Performed 07/18/2011) * GLUCOSE - POINT OF CARE(Performed 07/17/2011) * GLUCOSE - POINT OF CARE(Performed 07/17/2011) * GLUCOSE - POINT OF CARE(Performed 07/17/2011) * GLUCOSE - POINT OF CARE(Performed 07/17/2011) * BLOOD TYPE VERIFICATION(Performed 07/11/2011) * TYPE + SCREEN PANEL(Performed 07/11/2011) Performed for Preoperative examination, unspecified * CBC W/O DIFFERENTIAL(Performed 07/11/2011) Performed for Preoperative examination, unspecified * BASIC METABOLIC PANEL (CALCIUM TOTAL)(Performed 07/11/2011) Performed for Preoperative examination, unspecified * BASIC METABOLIC PANEL (CALCIUM TOTAL)(Performed 05/17/2011) * HEMOGLOBIN A1C(Performed 05/17/2011) * CULTURE URINE COMPREHENSIVE(Performed 03/18/2011) * PATHOLOGY REPORTS - HPF HISTORICAL(Performed 01/31/2011) * GLUTAMIC ACID DECARBOXYLASE (AMISH) ANTIBODY(Performed 01/24/2011) * NEURONAL NUCLEAR ANTIBODY IGG(Performed 01/24/2011) * COMPREHENSIVE METABOLIC PANEL(Performed 12/09/2010) * HEMOGLOBIN A1C(Performed 12/09/2010) * TSH(Performed 12/09/2010) * T4 FREE(Performed 12/09/2010) * CBC W/O DIFFERENTIAL(Performed 12/09/2010) * PATHOLOGY REPORTS - HPF HISTORICAL(Performed 11/25/2010) * PATHOLOGY/GENETICS HISTORICAL-ONBASE(Performed 11/01/2010) * CULTURE URINE(Performed 10/29/2010) * LAB HISTORICAL RESULTS-ONBASE(Performed 10/29/2010) * URINALYSIS - POINT OF CARE (AMB) [facility](Performed 10/17/2010) * HEMOGLOBIN A1C(Performed 08/01/2010) * LIPID PROFILE(Performed 08/01/2010) * BASIC METABOLIC PANEL (CALCIUM TOTAL)(Performed 08/01/2010) * MICROALBUMIN URINE RANDOM(Performed 08/01/2010) * IRON BLOOD(Performed 06/24/2010) * FERRITIN(Performed 06/24/2010) * VITAMIN D 25-HYDROXY(Performed 05/18/2010) * TSH(Performed 05/18/2010) * FOLATE(Performed 05/18/2010) * VITAMIN B12(Performed 05/18/2010) * T4 FREE(Performed 05/18/2010) * LIPID PROFILE(Performed 12/20/2009) * RPR(Performed 10/26/2009) * VITAMIN D 25-HYDROXY(Performed 10/26/2009) * FOLATE(Performed 10/26/2009) * VITAMIN B12(Performed 10/26/2009) * HIV-1 ANTIBODY(Performed 10/26/2009) * CBC W/O DIFFERENTIAL(Performed 07/14/2009) * COMPREHENSIVE METABOLIC PANEL(Performed 07/14/2009) * T4 FREE(Performed 07/14/2009) * TSH(Performed 07/14/2009) * VITAMIN D 25-HYDROXY(Performed 12/14/2008) * LAB HISTORICAL RESULTS-ONBASE(Performed 10/29/2008) * PATHOLOGY/GENETICS HISTORICAL-ONBASE(Performed 10/07/2008) * COMPREHENSIVE METABOLIC PANEL(Performed 07/29/2008) * LIPID PROFILE(Performed 07/29/2008) * URINALYSIS REFLEX TO MICROSCOPIC NO CULTURE(Performed 05/04/2008) * HEMOGLOBIN A1C(Performed 05/04/2008) * COMPREHENSIVE METABOLIC PANEL(Performed 05/04/2008) * LIPID PROFILE(Performed 05/04/2008) * LAB HISTORICAL RESULTS-ONBASE(Performed 04/08/2008) * LIPID PROFILE(Performed 04/08/2008) * LAB HISTORICAL RESULTS-ONBASE(Performed 04/08/2008) * URINALYSIS - POINT OF CARE (AMB) [facility](Performed 1998) * URINALYSIS - POINT OF CARE (AMB) [facility](Performed 1998) Results * VAS Carotid Duplex Bilateral (06/11/2024 12:23 PM CDT) Only the most recent of5 resultswithin the time period is included. Anatomical Region Laterality Modality Neck Intravascular Ul trasound 06/11/2024 11:3 3 AM CDT Narrative Procedure Note Dionte Alan MD - 06/11/2024 Yudith Rodriguez MD VASCULAR LAB ORDERA BLES * URINALYSIS AUTO - POINT OF CARE (AMB) [facility] (02/28/2024 11:15 AM CDT) Only the most recent of18 resultswithin the time period is included. Glucose UA - [facility] [address] Bilirubin UA POCT - [facility] [address] Ketones UA POCT - [facility] [address] Specific Henrietta UA 1.[address] [facility] [address] Blood Urine POCT - [facility] [address] pH UA 6.0 [facility] [address] Protein UA - [facility] [address] Urobilinogen UA - [facility] [address] Nitrite UA - [facility] [address] WBC UA - [facility] [address] Urine URINE / Unknown 02/28/2024 1 1:15 AM CDT Cayla Ramirez ASTR[employer] INST[employer]ER LAB - POINT OF CARE ORDERABLES [facility] [address] [place] [address], [facility] [phone] * UT MSR PVR U&/BLADD CAPCTY US NON (02/28/2024 11:14 AM CDT) Narrative Loan Antonio MA - 02/28/2024 11:14 AM CDT Loan Antonio MA ? 03/03/2024 ??9:24 AM Bladder scan completed. 43ml post void residual. Cayla Ramirez [employer] INST[employer]ER PROCEDURE/MINOR SURGICAL ORDERABLES * CT UROGRAM (02/28/2024 9:29 AM CDT) Only the most recent of4 resultswithin the time period is included. Anatomical Region Laterality Modality Abdomen, Pelvis Computed Tomogra phy 02/28/2024 10:1 4 AM CDT Narrative 02/28/2024 10:56 AM CDT PROCEDURE: ??CT UROGRAM, DATE/TIME OF EXAM: ??02/28/2024 9:32 AM, LOCATION ??[facility] INDICATION: N39.0: Urinary tract infection, site not specified N20.0: Calculus of kidney R33.9: Retention of urine, unspecified CT ABDOMEN AND PELVIS HISTORY: Urinary tract infections and history of kidney stones. TECHNIQUE: Pre and postcontrast imaging and delayed imaging through the abdomen and pelvis obtained following intravenous administration of 100 mL Isovue-370. Comparison is made to 10/26/2023. FINDINGS: ?? Small nonobstructing bilateral kidney stones are unchanged. Precontrast imaging demonstrates a stable appearing left parapelvic renal cyst with attenuation measurements of approximately 10. Following intravenous contrast administration, there is symmetric bilateral concentration and excretion of contrast. A parapelvic left renal cyst fails to enhance and demonstrates a postcontrast attenuation measurement of 16. There is a small hypodense lesion within the inferior pole of the right kidney too small to characterize and not seen on precontrast imaging. No obstructive uropathy is seen. The visualized calyces, infundibula and renal pelves are normal. The visualized ureters are normal. Persistent mild bladder wall thickening is noted. There is no gas within the bladder in the current examination. The uterus and adnexa are surgically absent. The liver is grossly stable and normal. The gallbladder is absent. There is dilatation of the intra and extrahepatic bile ducts with the common bile duct measuring up to approximately 1.1-1.2 cm. The distal common bile duct appears somewhat blunt ended. The pancreas is normal without pancreatic mass, duct dilatation or peripancreatic soft tissue stranding. The spleen is normal. The adrenal glands are normal. The visualized stomach, large and small bowel appear grossly normal. There is no free air or free fluid. The aorta is atherosclerotic. The visualized aorta and its branches enhance normally. The heart size is stable. The lung bases are clear. The osseous structures are stable. DIAGNOSIS: Small bilateral nonobstructing kidney stones are present. There is a benign-appearing left parapelvic renal cyst. Small hypodensity in the inferior pole of the right kidney is present too small to characterize. There is persistent mild bladder wall thickening. No air is seen in the bladder. There is intra and extrahepatic bile duct dilatation. Correlation with serum bilirubin levels recommended. If clinically indicated, further evaluation with MRCP examination could be obtained. Edited by Taylor Holcomb on 02/28/2024 10:34 AM > Interpreting Provider: Ravin Villegas MD on 02/28/2024 10:56 AM Procedure Note Ravin Villegas MD - 02/28/2024 PROCEDURE: CT UROGRAM, DATE/TIME OF EXAM: 02/28/2024 9:32 AM, [facility] INDICATION: N39.0: Urinary tract infection, site not specified N20.0: Calculus of kidney R33.9: Retention of urine, unspecified CT ABDOMEN AND PELVIS HISTORY: Urinary tract infections and history of kidney stones. TECHNIQUE: Pre and postcontrast imaging and delayed imaging through the abdomen and pelvis obtained following intravenous administration of 100 mLIsovue-370. Comparison is made to 10/26/2023. FINDINGS: Small nonobstructing bilateral kidney stones are unchanged. Precontrast imaging demonstrates a stable appearing left parapelvic renal cyst with attenuation measurements of approximately 10. Following intravenous contrast administration, there is symmetricbilateral concentration and excretion of contrast. A parapelvic left renal cystfails to enhance and demonstrates a postcontrast attenuation measurement of16. There is a small hypodense lesion within the inferior pole of the right kidney too small to characterize and not seen on precontrast imaging. No obstructive uropathy is seen. The visualized calyces, infundibula and renal pelves are normal. The visualized ureters are normal. Persistentmild bladder wall thickening is noted. There is no gas within the bladder inthe current examination. The uterus and adnexa are surgically absent. The liver is grossly stable and normal. The gallbladder is absent. Thereis dilatation of the intra and extrahepatic bile ducts with the common bile duct measuring up to approximately 1.1-1.2 cm. The distal common bileduct appears somewhat blunt ended. The pancreas is normal without pancreatic mass, duct dilatation or peripancreatic soft tissue stranding. Thespleen is normal. The adrenal glands are normal. The visualized stomach, large and small bowel appear grossly normal.There is no free air or free fluid. The aorta is atherosclerotic. Thevisualized aorta and its branches enhance normally. The heart size is stable. The lung bases are clear. The osseous structures are stable. DIAGNOSIS: Small bilateral nonobstructing kidney stones are present. There is a benign-appearing left parapelvic renal cyst. Small hypodensity in the inferior pole of the right kidney is present too small to characterize. There is persistent mild bladder wall thickening. No air is seen in the bladder. There is intra and extrahepatic bile duct dilatation. Correlation with serum bilirubin levels recommended. If clinically indicated, further evaluation with MRCP examination could be obtained. Edited by Taylor Holcomb on 02/28/2024 10:34 AM > Interpreting Provider: Ravin Villegas MD on 02/28/2024 10:56 AM Cayla Neris A[employer] INST[employer]ER CT ORDERABLES * (ABNORMAL) URINE MICROSCOPIC ONLY REFLEX TO CULTURE (02/13/2024 11:02 AM CDT) Only the most recent of3 resultswithin the time period is included. Reflex Status Culture to follow 02/13/2024 12:[address] [facility] WBC UA 21-50(A) None Seen, 0-5 /HPF 02/13/2024 12:[address] [facility] Bacteria UA Trace(A) None /HPF 02/13/2024 12:[address] [facility] Yeast Budding UA Many(A) None /HPF 02/13/2024 12:[address] [facility] Squamous Epithelial Cells UA 0-2 None Seen, 0-2, 3-5 /HPF 02/13/2024 12:[address] [facility] Mucus UA 1+ /LPF 02/13/2024 12:[address] [facility] Urine URINE SPECIMEN OBTAINED BY CLEAN CATCH PROCEDURE / Unknown Collection / Unknown 02/13/2024 11:02 AM CDT 02/13/2024 12:18 PM CDT [facility] - 02/13/2024 12:41 PM CDT Silviano York III, MD LAB - URINALYSIS ORDERABLES [facility] [address] [place] [phone], [facility] [phone] * (ABNORMAL) URINALYSIS REFLEX MICROSCOPIC REFLEX CULTURE (02/13/2024 11:02 AM CDT) Only the most recent of5 resultswithin the time period is included. Color UA Yellow Straw, Yellow 02/13/2024 12:[address] [facility] Clarity UA Slt Cloudy(A) Clear 02/13/2024 12:[address] [facility] Specific Henrietta UA 1.015 1.005 - 1.030 02/13/2024 12:[address] [facility] pH UA 5.0 5.0 - 8.0 pH 02/13/2024 12:[address] [facility] Protein UA Negative Negative 02/13/2024 12:[address] [facility] Glucose UA Negative Negative 02/13/2024 12:[address] [facility] Ketone UA Trace(A) Negative 02/13/2024 12:[address] [facility] Bilirubin UA Negative Negative 02/13/2024 12:[address] [facility] Blood UA Negative Negative 02/13/2024 12:[address] [facility] Nitrite UA Negative Negative 02/13/2024 12:[address] [facility] Leukocyte Esterase Trace(A) Negative 02/13/2024 12:[address] [facility] Urobilinogen UA Negative Negative mg/dL 02/13/2024 12:[address] [facility] Urine URINE SPECIMEN OBTAINED BY CLEAN CATCH PROCEDURE / Unknown Collection / Unknown 02/13/2024 11:02 AM CDT 02/13/2024 12:[address] [facility] - 02/13/2024 12:40 PM CDT Silviano York III, MD LAB - URINALYSIS ORDERABLES [facility] [address] [place] [phone], [facility] [phone] * CULTURE URINE (02/13/2024 11:02 AM CDT) Only the most recent of75 resultswithin the time period is included. Culture Urine 10,000-50,000 CFU/mL urogenital ender LYNNE 02/15/2024 2:20 AM CDT [facility]CRO[facility] Urine URINE SPECIMEN OBTAINED BY CLEAN CATCH PROCEDURE / Unknown Collection / Unknown 02/13/2024 11:02 AM CDT 02/13/2024 12:41 PM CDT Silviano York III, MD LAB - MICROBIOLOG Y ORDERABLES [facility] [address] [place] [address], [facility] [phone] * (ABNORMAL) BASIC METABOLIC PANEL (CALCIUM TOTAL) (02/13/2024 11:02 AM CDT) Only the most recent of84 resultswithin the time period is included. BUN 12 7 - 26 mg/dL 02/13/2024 12:47 PM [facility] Creatinine 0.74 0.56 - 0.96 mg/dL 02/13/2024 12:47 PM [facility] Sodium 146(H) 136 - 145 mmol/L 02/13/2024 12:47 PM [facility] Potassium 3.0(L) 3.5 - 4.5 mmol/L 02/13/2024 12:47 PM [facility] Chloride 107 98 - 107 mmol/L 02/13/2024 12:47 PM [facility] CO2 28 22 - 29 mmol/L 02/13/2024 12:47 PM [facility] Glucose 126(H) 70 - 115 mg/dL 02/13/2024 12:47 PM [facility] Calcium 9.5 8.4 - 10.2 mg/dL 02/13/2024 12:47 PM [facility] Anion Gap 11 6 - 16 02/13/2024 12:47 PM [facility] BUN/Creatinine Ratio 16 7 - 23 02/13/2024 12:47 PM [facility] Osmolality Calculated 303(H) 275 - 295 mOsm/kg 02/13/2024 12:47 PM [facility] eGFR by CKD-EPI 89(L) >=90 mL/min/1.7 3 m2 02/13/2024 12:47 PM [facility] Blood BLOOD SPECIMEN / Unknown Lab Venipuncture / Unknown 02/13/2024 11:02 AM CDT 02/13/2024 12:20 PM CDT Silviano York III, MD LAB - CHEMISTRY O RDERABLES [facility] [address] [place] [address], [facility] [phone] * (ABNORMAL) CBC W AUTO DIFFERENTIAL (02/05/2024 3:01 PM CDT) Only the most recent of85 resultswithin the time period is included. WBC 11.9(H) 4.0 - 10.7 x10E9/L 02/05/2024 3:23 PM [facility] RBC Count 4.62 3.90 - 5.20 x10E12/L 02/05/2024 3:23 PM [facility] Hemoglobin 13.3 11.9 - 15.8 g/dL 02/05/2024 3:23 PM [facility] Hematocrit 39.8 34.8 - 46.1 % 02/05/2024 3:23 PM [facility] MCV 86.1 80.0 - 98.0 fL 02/05/2024 3:23 PM [facility] MCH 28.8 26.7 - 33.6 pg 02/05/2024 3:23 PM [facility] MCHC 33.4 31.7 - 36.3 g/dL 02/05/2024 3:23 PM [facility] RDW-CV 15.7(H) 11.3 - 14.8 % 02/05/2024 3:23 PM [facility] Platelet Count 216 150 - 420 x10E9/L 02/05/2024 3:23 PM [facility] MPV 9.2 7.8 - 11.4 fL 02/05/2024 3:23 PM [facility] Neutrophil % 72.8 41.0 - 74.0 % 02/05/2024 3:23 PM [facility] Lymphocyte % 19.1 17.0 - 47.0 % 02/05/2024 3:23 PM [facility] Monocyte % 6.7 3.0 - 11.0 % 02/05/2024 3:[address] [facility] Eosinophil % 0.8 0.0 - 7.0 % 02/05/2024 3:23 PM [facility] Basophil % 0.3 0.0 - 1.6 % 02/05/2024 3:[address] [facility] Immature Granulocytes % 0.3 0.0 - 1.0 % 02/05/2024 3:23 PM [facility] Neutrophil Absolute 8.64(H) 1.60 - 7.50 x10E9/L 02/05/2024 3:23 PM [facility] Lymphocyte Absolute 2.27 1.00 - 4.40 x10E9/L 02/05/2024 3:23 PM [facility] Monocyte Absolute 0.80 0.15 - 1.00 x10E9/L 02/05/2024 3:23 PM [facility] Eosinophil Absolute 0.09 0.00 - 0.60 x10E9/L 02/05/2024 3:23 PM [facility] Basophil Absolute 0.03 0.00 - 0.13 x10E9/L 02/05/2024 3:23 PM [facility] Blood BLOOD SPECIMEN / Unknown Lab Venipuncture / Unknown 02/05/2024 3:01 PM CDT 02/05/2024 3:17 PM CDT Greta Young MD LAB - HEMATOLOGY ORD ERABLES [facility] [address] [place] [address], [facility] [phone] * (ABNORMAL) GLUCOSE - POINT OF CARE (02/05/2024 9:25 AM CDT) Only the most recent of184 resultswithin the time period is included. Glucose WB/POC 124(H) 70 - 115 mg/dL 02/05/2024 1:[address] [facility] Specimen Type Cap Fingerstick 2023 1:49 PM T [facility] Blood BLOOD SPECIMEN / Unknown 02/05/2024 9:25 AM CDT 02/05/2024 1:49 PM CDT Cecily Marrufo DO LAB - POINT OF CARE ORDERABLES [facility] [address] [place] [address], [facility] [phone] * CULTURE FUNGUS OTHER+FUNGUS SMEAR (02/05/2024 6:24 AM CDT) Culture No fungus isolated LYNNE 03/03/2024 10:48 AM CDT [facility]CROBIOLOG[facility] Fungus Stain No yeast or hyphae seen 03/03/2024 10:48 AM CDT [facility]CROBIOLOGY Microbiology URINE SPECIMEN OBTAINED BY CLEAN CATCH PROCEDURE / Unknown Collection / Unknown 02/05/2024 6:24 AM CDT 02/05/2024 6:32 AM CDT Greta Young MD LAB - MICROBIOLOGY O RDERABLES Performing Organization Address City/[facility]/ZIP Co de Phone Number [facility] MICROBIOLOGY [address] [place] [address], [facility] [phone] * URINE DRUG SCREEN IMMUNOASSAY (02/02/2024 3:17 PM CDT) Only the most recent of3 resultswithin the time period is included. Amphetamines Screen Urine Negative Negative: < 1000 ng/mL 02/02/2024 4:[address] [facility] Barbiturates Screen Urine Negative Negative: < 200 ng/mL 02/02/2024 4:[address] [facility] Benzodiazepine Screen Urine Negative Negative: < 200 ng/mL 02/02/2024 4:[address] [facility] Opiates Urine Negative Negative: < 300 ng/mL 02/02/2024 4:[address] [facility] Cocaine Metabolites Urine Negative Negative: < 300 ng/mL 02/02/2024 4:[address] [facility] Phencyclidine Screen Urine Negative Negative: < 25 ng/ml 02/02/2024 4:[address] [facility] Cannabinoids Screen Urine Negative Negative: <50 ng/mL 02/02/2024 4:[address] [facility] Methadone Screen Urine Negative Negative: < 300 ng/mL 02/02/2024 4:[address] [facility] Fentanyl Screen Urine Negative Negative: <1.5 ng/mL 02/02/2024 4:[address] [facility] Urine URINE / Unknown Collection / Unknown 02/02/2024 3:17 PM CDT 02/02/2024 3:[address] [facility] - 02/02/2024 4:12 PM CDT The Urine Toxicology Screening Panel does not screen for Propoxyphene, Meprobamate, Carisoprodol, Trazodone, [id number] medications and/or volatiles (Acetone, Isopropanol, Methanol or Ethylene Glycol). Ethanol, Salicylate, Acetaminophen, Tricyclic Antidepressants and several therapeutic drugs may be individually assayed in serum or plasma specimen. Toxicology testing by the [facility] is an aid to medical diagnosis and treatment of patients. No documented chain of custody was maintained. Results are intended to be used for clinical purposes only. ? Erich Diaz MD LAB - URINE CHEMISTR Y ORDERABLES Performing Organization Address [facility]/State/[facility] Co de Phone Number [facility] [address] [place] [address], [facility] [phone] * TROPONIN-I HIGH SENSITIVE REFLEX 1HOUR (02/02/2024 11:32 AM CDT) Troponin I High Sensitive 7 <=14 ng/L 02/02/2024 12:19 PM CDT [facility] Delta Troponin I HS 02/02/2024 12:[address] [facility] Comment:Delta value intentio cookie not calculated. Baseline to 1 hour specimen collection interval exceeded. Blood BLOOD SPECIMEN / Unknown Venipuncture / Unknown 02/02/2024 11:32 AM CDT 02/02/2024 11:36 AM CDT Erich Diaz MD LAB - CHEMISTRY [facility] [address] [place] [phone], [facility] [phone] * CT CHEST ABDOMEN PELVIS W CONT - Abdomen-pelvis trauma, blunt or penetrating (02/02/2024 11:31 AM CDT) Only the most recent of2 resultswithin the time period is included. Anatomical Region Laterality Modality Chest, Abdomen, Pelvis Computed Tomography 02/02/2024 11:1 6 AM CDT Impressions 02/02/2024 11:53 AM CDT Impression: Incomplete-awaiting reformats 1.No acute visceral, vascular, or osseus injury identified in the chest, abdomen, or pelvis. 2.Redemonstrated findings compatible with cystitis. > Dictated by Ankit Prabhakar MD (director of radiology). I, Edmond López MD have personally reviewed and interpreted this examination/study. > Interpreting Provider: Edmond López MD on 02/02/2024 11:53 AM Narrative 02/02/2024 11:53 AM CDT PROCEDURE: ??CT CHEST ABDOMEN PELVIS W CONT, DATE/TIME OF EXAM: ??02/02/2024 10:55 AM, LOCATION ??[facility] INDICATION: Trauma ADDITIONAL CLINICAL INFORMATION: Ordering Provider Reason For Exam: Technologist Note: Additional: COMPARISON: CT abdomen pelvis without contrast 12/27/2023, CT abdomen and pelvis with contrast 07/04/2021, CT chest without contrast 01/19/2021. TECHNIQUE: CT of the chest, abdomen, and pelvis was performed after the uneventful administration of 100 mL of Isovue 370 intravenous contrast according to standard protocol. Findings: Chest: Lower Neck and Axillae: Normal. Lungs: Mild bilateral dependent atelectasis is present. No suspicious pulmonary nodules are identified. No pleural fluid or pneumothorax is present. Heart and Pericardium: The cardiac chambers are normal in size. No pericardial fluid or thickening is present. The coronary arteries are atherosclerotic. Mediastinum and Wilda: No mediastinal hemorrhage is present. No enlarged lymph nodes are present. Thoracic Vasculature: The aorta and its branch vessels are atherosclerotic. Abdomen/pelvis: Liver: Normal. Gallbladder and Bile Ducts: The gallbladder is absent. The common bile duct measures up to 1.2 cm in diameter and mild centrally predominant intrahepatic biliary dilatation is present, likely secondary to postcholecystectomy state. Spleen: Normal. Pancreas: Mild atrophy . Adrenals: Normal. Kidneys: Multiple subcentimeter hypoattenuating lesions in both kidneys are too small to characterize, but likely represent cysts. A left peripelvic cyst measures up to 3.7 cm. The bilateral ureters are unremarkable. Gastrointestinal: The stomach and visualized loops of small bowel are unremarkable. Colonic diverticulosis without evidence of diverticulitis is seen. Normal appendix. Mesentery/Peritoneum/Retroperitoneum: No free intraperitoneal air. No free fluid in the abdomen or pelvis. Bladder: Diffuse mural thickening with a small amount of perivesicular fat stranding. Reproductive Organs: The uterus is absent. Abdominal Vasculature: No vascular abnormality is present. Bones: No acute fracture. Mild anterior height loss and superior endplate deformity with Schmorl's node at T12, chronic in appearance. Instrumented spinal fusion at L4-S1 with associated metallic artifact. Laminectomies are present in the region. Anterior cervical discectomy and fusion of the visualized lower cervical spine with associated metallic artifact. Chronic deformity right iliac bone posteriorly, likely postprocedural. Soft tissues: Lipoma left lateral chest wall (series 5 image 120) Procedure Note Edmond López MD - 02/02/2024 PROCEDURE: CT CHEST ABDOMEN PELVIS W CONT, DATE/TIME OF EXAM:02/02/2024 10:55 AM, LOCATION [facility] INDICATION: Trauma ADDITIONAL CLINICAL INFORMATION: Ordering Provider Reason For Exam: Technologist Note: Additional: COMPARISON: CT abdomen pelvis without contrast 12/27/2023, CT abdomen and pelvis with contrast 07/04/2021, CT chest without contrast 01/19/2021. TECHNIQUE: CT of the chest, abdomen, and pelvis was performed after the uneventful administration of 100 mL of Isovue 370 intravenous contrast according to standard protocol. Findings: Chest: Lower Neck and Axillae: Normal. Lungs: Mild bilateral dependent atelectasis is present. No suspicious pulmonary nodules are identified. No pleural fluid or pneumothorax is present. Heart and Pericardium: The cardiac chambers are normal in size. No pericardial fluid orthickening is present. The coronary arteries are atherosclerotic. Mediastinum and Wilda: No mediastinal hemorrhage is present. No enlarged lymph nodes arepresent. Thoracic Vasculature: The aorta and its branch vessels are atherosclerotic. Abdomen/pelvis: Liver: Normal. Gallbladder and Bile Ducts: The gallbladder is absent. The common bile duct measures up to 1.2 cm in diameter and mild centrally predominant intrahepatic biliary dilatationis present, likely secondary to postcholecystectomy state. Spleen: Normal. Pancreas: Mild atrophy . Adrenals: Normal. Kidneys: Multiple subcentimeter hypoattenuating lesions in both kidneys are too small to characterize, but likely represent cysts. A left peripelviccyst measures up to 3.7 cm. The bilateral ureters are unremarkable. Gastrointestinal: The stomach and visualized loops of small bowel are unremarkable.Colonic diverticulosis without evidence of diverticulitis is seen. Normalappendix. Mesentery/Peritoneum/Retroperitoneum: No free intraperitoneal air. No free fluid in the abdomen or pelvis. Bladder: Diffuse mural thickening with a small amount of perivesicular fat stranding. Reproductive Organs: The uterus is absent. Abdominal Vasculature: No vascular abnormality is present. Bones: No acute fracture. Mild anterior height loss and superior endplate deformity with Schmorl's node at T12, chronic in appearance. Instrumented spinal fusion at L4-S1 with associated metallic artifact. Laminectomies are present in the region. Anterior cervical discectomy and fusion of the visualized lower cervical spine with associated metallic artifact. Chronic deformity right iliac bone posteriorly, likely postprocedural. Soft tissues: Lipoma left lateral chest wall (series 5 image 120) Impression: Incomplete-awaiting reformats 1.No acute visceral, vascular, or osseus injury identified in the chest, abdomen, or pelvis. 2.Redemonstrated findings compatible with cystitis. > Dictated by Ankit Prabhakar MD (director of radiology). Edmond Stevenson MD have personally reviewed and interpreted this examination/study. > Interpreting Provider: Edmond López MD on 02/02/2024 11:53 AM Erich Diaz MD CT ORDERABLES * CT LUMBAR SPINE WO CONTRAST - T/L-spine trauma, Spine fracture (02/02/2024 11:31 AM CDT) Only the most recent of2 resultswithin the time period is included. Anatomical Region Laterality Modality Spine Computed Tomogra phy 02/02/2024 11:1 7 AM CDT Impressions 02/02/2024 3:07 PM CDT IMPRESSION: 1.No acute intracranial hemorrhage, midline shift, or significant mass effect. 2.No acute facial bone fractures identified. 3.No evidence of acute fracture in the cervical, thoracic, or lumbar spine. 4.Postsurgical changes in the cervical and lumbar spine as detailed above. 5.Multilevel varying degrees of degenerative disc and joint disease of the cervical, thoracic, lumbar spine as outlined. 6.Please refer to the concurrent, dedicated body report for findings in the chest, abdomen, and pelvis. > Dictated by Nehemiah Jiménez MD ([employer]al [employer] Merchandiser) Dayton Stevenson MD have personally reviewed and interpreted this examination/study. > Interpreting Provider: Dayton Kiran MD on 02/02/2024 3:07 PM Narrative 02/02/2024 3:07 PM CDT PROCEDURE: ??CT HEAD WO CONTRAST, CT CERVICAL SPINE WO CONTRAST, CT FACIAL BONES WO CONTRAST, CT LUMBAR SPINE WO CONTRAST, CT THORACIC SPINE WO CONTRAST, DATE/TIME OF EXAM: ??02/02/2024 11:32 AM, LOCATION ??[facility] INDICATION: Trauma EXAMINATION: 1. Computed tomography (CT) of the head without contrast 2. CT of the maxillofacial bones, orbits, and paranasal sinuses without contrast 3. CT of the cervical spine without contrast 4. CT of the thoracic spine without contrast 5. CT of the lumbar spine without contrast TECHNIQUE: CT of the head, cervical spine, and maxillofacial bones, orbits, and paranasal sinuses was performed without contrast according to standard protocol. Reformatted axial, sagittal, and coronal images of the thoracic and lumbar spine were obtained by the technologist from a concurrently performed body CT and sent to the workstation for review. CT dose reduction technique was used, including Automated Exposure Control. COMPARISON: CT brain stroke 04/12/2022 FINDINGS: Head: No acute intra- or extra-axial fluid collections are identified. There is mild cerebral volume loss with associated ex vacuo ventricular dilatation. The basilar cisterns are patent. No mass effect or midline shift is seen. The brock-white matter differentiation is normal. Periventricular white matter hypoattenuation is nonspecific, but can be seen in the setting of chronic small vessel ischemic disease. No acute calvarial fracture is identified. Soft tissue swelling and hematoma along the left anterior scalp. Maxillofacial:. Other than bilateral cataract extractions, the orbits appear normal. The paranasal sinuses are clear. 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 There are naty bullosa of the middle turbinates bilaterally. 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 There are degenerative changes of the temporomandibular joints, perhaps worse on the right side mild periodontal disease, with missing teeth. The hard palate, mandible, and temporomandibular joints appear otherwise grossly unremarkable. No acute facial bone fractures are identified. The mastoid air cells are clear. No soft tissue abnormality is identified. Cerumen seen within the bilateral external auditory canals. Mild soft tissue swelling along the forehead/frontal scalp. Cervical spine: Anterior fusion hardware from C3 through C7, where there is no osseous fusion from C3 to C5. Vertebral bodies are normal in height without evidence of acute fracture. Other than advanced middle atlantoaxial joint osteoarthritis, the craniocervical junction appears normal. There is advanced degenerative disc disease with fusion of C3-5 vertebrae. Mild to moderate central canal stenosis at multiple levels, worse at C5-C6. There are varying degrees of mild facet osteoarthritis. There are varying degrees of advanced uncovertebral joint osteoarthritis with the same degree of neural foraminal stenosis at these levels, moderate to severe bilateral C5-C6, and severe left C6-7. There is atherosclerotic calcification of the left carotid bifurcation. Thoracic spine: Mild exaggeration of the thoracic process. Minimal dextrocurvature of the upper thoracic spine and minimal levocurvature of the mid to lower thoracic spine. The alignment is otherwise maintained. Mild chronic compression of superior endplate of T12 with Schmorl's nodule. No evidence of acute fracture. The bone are osteopenic. There is mild degenerative disc disease. No significant central canal stenosis is seen. There are varying degrees of mild facet osteoarthritis. ??There are varying degrees of minimal neural foraminal stenosis at multiple levels. There is subsegmental atelectasis in the dependent portions of the lung bases. Lumbar spine: Postsurgical changes of laminectomy and posterior fusion of L4-S. Laminectomies are noted in the region. Mild central canal stenosis at L1-2 and L2-3. Moderate central canal stenosis at L3-4. No evidence of acute fracture. There is advanced degenerative disc disease. There are varying degrees of mild facet osteoarthritis. There are varying degrees of neural foraminal stenosis at multiple levels. A 3.6 cm simple cyst within the left renal pelvis. There is a suspected tiny nonobstructing left renal stone Procedure Note Dayton Kiran MD - 02/02/2024 PROCEDURE: CT HEAD WO CONTRAST, CT CERVICAL SPINE WO CONTRAST, CTFACIAL BONES WO CONTRAST, CT LUMBAR SPINE WO CONTRAST, CT THORACIC SPINE WO CONTRAST, DATE/TIME OF EXAM: 02/02/2024 11:32 AM, LOCATION [facility] INDICATION: Trauma EXAMINATION: 1. Computed tomography (CT) of the head without contrast 2. CT of the maxillofacial bones, orbits, and paranasal sinuses without contrast 3. CT of the cervical spine without contrast 4. CT of the thoracic spine without contrast 5. CT of the lumbar spine without contrast TECHNIQUE: CT of the head, cervical spine, and maxillofacial bones,orbits, and paranasal sinuses was performed without contrast according tostandard protocol. Reformatted axial, sagittal, and coronal images of thethoracic and lumbar spine were obtained by the technologist from a concurrently performed body CT and sent to the workstation for review. CT dosereduction technique was used, including Automated Exposure Control. COMPARISON: CT brain stroke 04/12/2022 FINDINGS: Head: No acute intra- or extra-axial fluid collections are identified. Thereis mild cerebral volume loss with associated ex vacuo ventriculardilatation. The basilar cisterns are patent. No mass effect or midline shift isseen. The brock-white matter differentiation is normal. Periventricular white matter hypoattenuation is nonspecific, but can be seen in the setting of chronic small vessel ischemic disease. No acute calvarial fracture is identified. Soft tissue swelling and hematoma along the left anterior scalp. Maxillofacial:. Other than bilateral cataract extractions, the orbits appear normal. The paranasal sinuses are clear. 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 There are naty bullosa of the middle turbinates bilaterally. 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 There are degenerative changes of the temporomandibular joints, perhaps worse onthe right side mild periodontal disease, with missing teeth. The hardpalate, mandible, and temporomandibular joints appear otherwise grossly unremarkable. No acute facial bone fractures are identified. The mastoid air cells are clear. No soft tissue abnormality is identified. Cerumenseen within the bilateral external auditory canals. Mild soft tissue swelling along the forehead/frontal scalp. Cervical spine: Anterior fusion hardware from C3 through C7, where there is no osseous fusion from C3 to C5. Vertebral bodies are normal in height without evidence of acute fracture. Other than advanced middle atlantoaxialjoint osteoarthritis, the craniocervical junction appears normal. There is advanced degenerative disc disease with fusion of C3-5 vertebrae. Mildto moderate central canal stenosis at multiple levels, worse at C5-C6.There are varying degrees of mild facet osteoarthritis. There are varyingdegrees of advanced uncovertebral joint osteoarthritis with the same degree of neural foraminal stenosis at these levels, moderate to severe bilateral C5-C6, and severe left C6-7. There is atherosclerotic calcification ofthe left carotid bifurcation. Thoracic spine: Mild exaggeration of the thoracic process. Minimal dextrocurvature ofthe upper thoracic spine and minimal levocurvature of the mid to lowerthoracic spine. The alignment is otherwise maintained. Mild chronic compressionof superior endplate of T12 with Schmorl's nodule. No evidence of acute fracture. The bone are osteopenic. There is mild degenerative discdisease. No significant central canal stenosis is seen. There are varying degreesof mild facet osteoarthritis. There are varying degrees of minimal neural foraminal stenosis at multiple levels. There is subsegmental atelectasisin the dependent portions of the lung bases. Lumbar spine: Postsurgical changes of laminectomy and posterior fusion of L4-S. Laminectomies are noted in the region. Mild central canal stenosis atL1-2 and L2-3. Moderate central canal stenosis at L3-4. No evidence of acute fracture. There is advanced degenerative disc disease. There are varying degreesof mild facet osteoarthritis. There are varying degrees of neural foraminal stenosis at multiple levels. A 3.6 cm simple cyst within the left renal pelvis. There is a suspected tiny nonobstructing left renal stone IMPRESSION: 1.No acute intracranial hemorrhage, midline shift, or significant mass effect. 2.No acute facial bone fractures identified. 3.No evidence of acute fracture in the cervical, thoracic, or lumbarspine. 4.Postsurgical changes in the cervical and lumbar spine as detailedabove. 5.Multilevel varying degrees of degenerative disc and joint disease ofthe cervical, thoracic, lumbar spine as outlined. 6.Please refer to the concurrent, dedicated body report for findings inthe chest, abdomen, and pelvis. > Dictated by Nehemiah Jiménez MD ([employer] Merchandiser) Dayton Stevenson MD have personally reviewed and interpretedthis examination/study. > Interpreting Provider: Dayton Kiran MD on 02/02/2024 3:07 PM Erich Diaz MD CT ORDERABLES * CT THORACIC SPINE WO CONTRAST - T/L-spine trauma, spine fracture (02/02/2024 11:31 AM CDT) Only the most recent of2 resultswithin the time period is included. Anatomical Region Laterality Modality Spine Computed Tomogra phy 02/02/2024 11:1 7 AM CDT Impressions 02/02/2024 3:07 PM CDT IMPRESSION: 1.No acute intracranial hemorrhage, midline shift, or significant mass effect. 2.No acute facial bone fractures identified. 3.No evidence of acute fracture in the cervical, thoracic, or lumbar spine. 4.Postsurgical changes in the cervical and lumbar spine as detailed above. 5.Multilevel varying degrees of degenerative disc and joint disease of the cervical, thoracic, lumbar spine as outlined. 6.Please refer to the concurrent, dedicated body report for findings in the chest, abdomen, and pelvis. > Dictated by Nehemiah Jiménez MD ([employer] Merchandiser) Dayton Stevenson MD have personally reviewed and interpreted this examination/study. > Interpreting Provider: Dayton Kiran MD on 02/02/2024 3:07 PM Narrative 02/02/2024 3:07 PM CDT PROCEDURE: ??CT HEAD WO CONTRAST, CT CERVICAL SPINE WO CONTRAST, CT FACIAL BONES WO CONTRAST, CT LUMBAR SPINE WO CONTRAST, CT THORACIC SPINE WO CONTRAST, DATE/TIME OF EXAM: ??02/02/2024 11:32 AM, LOCATION ??[facility] INDICATION: Trauma EXAMINATION: 1. Computed tomography (CT) of the head without contrast 2. CT of the maxillofacial bones, orbits, and paranasal sinuses without contrast 3. CT of the cervical spine without contrast 4. CT of the thoracic spine without contrast 5. CT of the lumbar spine without contrast TECHNIQUE: CT of the head, cervical spine, and maxillofacial bones, orbits, and paranasal sinuses was performed without contrast according to standard protocol. Reformatted axial, sagittal, and coronal images of the thoracic and lumbar spine were obtained by the technologist from a concurrently performed body CT and sent to the workstation for review. CT dose reduction technique was used, including Automated Exposure Control. COMPARISON: CT brain stroke 04/12/2022 FINDINGS: Head: No acute intra- or extra-axial fluid collections are identified. There is mild cerebral volume loss with associated ex vacuo ventricular dilatation. The basilar cisterns are patent. No mass effect or midline shift is seen. The brock-white matter differentiation is normal. Periventricular white matter hypoattenuation is nonspecific, but can be seen in the setting of chronic small vessel ischemic disease. No acute calvarial fracture is identified. Soft tissue swelling and hematoma along the left anterior scalp. Maxillofacial:. Other than bilateral cataract extractions, the orbits appear normal. The paranasal sinuses are clear. 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 There are naty bullosa of the middle turbinates bilaterally. 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 There are degenerative changes of the temporomandibular joints, perhaps worse on the right side mild periodontal disease, with missing teeth. The hard palate, mandible, and temporomandibular joints appear otherwise grossly unremarkable. No acute facial bone fractures are identified. The mastoid air cells are clear. No soft tissue abnormality is identified. Cerumen seen within the bilateral external auditory canals. Mild soft tissue swelling along the forehead/frontal scalp. Cervical spine: Anterior fusion hardware from C3 through C7, where there is no osseous fusion from C3 to C5. Vertebral bodies are normal in height without evidence of acute fracture. Other than advanced middle atlantoaxial joint osteoarthritis, the craniocervical junction appears normal. There is advanced degenerative disc disease with fusion of C3-5 vertebrae. Mild to moderate central canal stenosis at multiple levels, worse at C5-C6. There are varying degrees of mild facet osteoarthritis. There are varying degrees of advanced uncovertebral joint osteoarthritis with the same degree of neural foraminal stenosis at these levels, moderate to severe bilateral C5-C6, and severe left C6-7. There is atherosclerotic calcification of the left carotid bifurcation. Thoracic spine: Mild exaggeration of the thoracic process. Minimal dextrocurvature of the upper thoracic spine and minimal levocurvature of the mid to lower thoracic spine. The alignment is otherwise maintained. Mild chronic compression of superior endplate of T12 with Schmorl's nodule. No evidence of acute fracture. The bone are osteopenic. There is mild degenerative disc disease. No significant central canal stenosis is seen. There are varying degrees of mild facet osteoarthritis. ??There are varying degrees of minimal neural foraminal stenosis at multiple levels. There is subsegmental atelectasis in the dependent portions of the lung bases. Lumbar spine: Postsurgical changes of laminectomy and posterior fusion of L4-S. Laminectomies are noted in the region. Mild central canal stenosis at L1-2 and L2-3. Moderate central canal stenosis at L3-4. No evidence of acute fracture. There is advanced degenerative disc disease. There are varying degrees of mild facet osteoarthritis. There are varying degrees of neural foraminal stenosis at multiple levels. A 3.6 cm simple cyst within the left renal pelvis. There is a suspected tiny nonobstructing left renal stone Procedure Note Dayton Kiran MD - 02/02/2024 PROCEDURE: CT HEAD WO CONTRAST, CT CERVICAL SPINE WO CONTRAST, CTFACIAL BONES WO CONTRAST, CT LUMBAR SPINE WO CONTRAST, CT THORACIC SPINE WO CONTRAST, DATE/TIME OF EXAM: 02/02/2024 11:32 AM, LOCATION [facility] INDICATION: Trauma EXAMINATION: 1. Computed tomography (CT) of the head without contrast 2. CT of the maxillofacial bones, orbits, and paranasal sinuses without contrast 3. CT of the cervical spine without contrast 4. CT of the thoracic spine without contrast 5. CT of the lumbar spine without contrast TECHNIQUE: CT of the head, cervical spine, and maxillofacial bones,orbits, and paranasal sinuses was performed without contrast according tostandard protocol. Reformatted axial, sagittal, and coronal images of thethoracic and lumbar spine were obtained by the technologist from a concurrently performed body CT and sent to the workstation for review. CT dosereduction technique was used, including Automated Exposure Control. COMPARISON: CT brain stroke 04/12/2022 FINDINGS: Head: No acute intra- or extra-axial fluid collections are identified. Thereis mild cerebral volume loss with associated ex vacuo ventriculardilatation. The basilar cisterns are patent. No mass effect or midline shift isseen. The brock-white matter differentiation is normal. Periventricular white matter hypoattenuation is nonspecific, but can be seen in the setting of chronic small vessel ischemic disease. No acute calvarial fracture is identified. Soft tissue swelling and hematoma along the left anterior scalp. Maxillofacial:. Other than bilateral cataract extractions, the orbits appear normal. The paranasal sinuses are clear. 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 There are naty bullosa of the middle turbinates bilaterally. 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 There are degenerative changes of the temporomandibular joints, perhaps worse onthe right side mild periodontal disease, with missing teeth. The hardpalate, mandible, and temporomandibular joints appear otherwise grossly unremarkable. No acute facial bone fractures are identified. The mastoid air cells are clear. No soft tissue abnormality is identified. Cerumenseen within the bilateral external auditory canals. Mild soft tissue swelling along the forehead/frontal scalp. Cervical spine: Anterior fusion hardware from C3 through C7, where there is no osseous fusion from C3 to C5. Vertebral bodies are normal in height without evidence of acute fracture. Other than advanced middle atlantoaxialjoint osteoarthritis, the craniocervical junction appears normal. There is advanced degenerative disc disease with fusion of C3-5 vertebrae. Mildto moderate central canal stenosis at multiple levels, worse at C5-C6.There are varying degrees of mild facet osteoarthritis. There are varyingdegrees of advanced uncovertebral joint osteoarthritis with the same degree of neural foraminal stenosis at these levels, moderate to severe bilateral C5-C6, and severe left C6-7. There is atherosclerotic calcification ofthe left carotid bifurcation. Thoracic spine: Mild exaggeration of the thoracic process. Minimal dextrocurvature ofthe upper thoracic spine and minimal levocurvature of the mid to lowerthoracic spine. The alignment is otherwise maintained. Mild chronic compressionof superior endplate of T12 with Schmorl's nodule. No evidence of acute fracture. The bone are osteopenic. There is mild degenerative discdisease. No significant central canal stenosis is seen. There are varying degreesof mild facet osteoarthritis. There are varying degrees of minimal neural foraminal stenosis at multiple levels. There is subsegmental atelectasisin the dependent portions of the lung bases. Lumbar spine: Postsurgical changes of laminectomy and posterior fusion of L4-S. Laminectomies are noted in the region. Mild central canal stenosis atL1-2 and L2-3. Moderate central canal stenosis at L3-4. No evidence of acute fracture. There is advanced degenerative disc disease. There are varying degreesof mild facet osteoarthritis. There are varying degrees of neural foraminal stenosis at multiple levels. A 3.6 cm simple cyst within the left renal pelvis. There is a suspected tiny nonobstructing left renal stone IMPRESSION: 1.No acute intracranial hemorrhage, midline shift, or significant mass effect. 2.No acute facial bone fractures identified. 3.No evidence of acute fracture in the cervical, thoracic, or lumbarspine. 4.Postsurgical changes in the cervical and lumbar spine as detailedabove. 5.Multilevel varying degrees of degenerative disc and joint disease ofthe cervical, thoracic, lumbar spine as outlined. 6.Please refer to the concurrent, dedicated body report for findings inthe chest, abdomen, and pelvis. > Dictated by Nehemiah Jiménez MD ([employer] Merchandiser) I, Dayton Kiran MD have personally reviewed and interpretedthis examination/study. > Interpreting Provider: Dayton Kiran MD on 02/02/2024 3:07 PM Erich Diaz MD CT ORDERABLES * CT CERVICAL SPINE WO CONTRAST - C-Spine Trauma, Spine fracture (02/02/2024 11:31 AM CDT) Only the most recent of3 resultswithin the time period is included. Anatomical Region Laterality Modality Spine Computed Tomogra phy 02/02/2024 11:1 7 AM CDT Impressions 02/02/2024 3:07 PM CDT IMPRESSION: 1.No acute intracranial hemorrhage, midline shift, or significant mass effect. 2.No acute facial bone fractures identified. 3.No evidence of acute fracture in the cervical, thoracic, or lumbar spine. 4.Postsurgical changes in the cervical and lumbar spine as detailed above. 5.Multilevel varying degrees of degenerative disc and joint disease of the cervical, thoracic, lumbar spine as outlined. 6.Please refer to the concurrent, dedicated body report for findings in the chest, abdomen, and pelvis. > Dictated by Nehemiah Jiméenz MD ([employer] Merchandiser) IDayton MD have personally reviewed and interpreted this examination/study. > Interpreting Provider: Dayton Kiran MD on 02/02/2024 3:07 PM Narrative 02/02/2024 3:07 PM CDT PROCEDURE: ??CT HEAD WO CONTRAST, CT CERVICAL SPINE WO CONTRAST, CT FACIAL BONES WO CONTRAST, CT LUMBAR SPINE WO CONTRAST, CT THORACIC SPINE WO CONTRAST, DATE/TIME OF EXAM: ??02/02/2024 11:32 AM, LOCATION ??[facility] INDICATION: Trauma EXAMINATION: 1. Computed tomography (CT) of the head without contrast 2. CT of the maxillofacial bones, orbits, and paranasal sinuses without contrast 3. CT of the cervical spine without contrast 4. CT of the thoracic spine without contrast 5. CT of the lumbar spine without contrast TECHNIQUE: CT of the head, cervical spine, and maxillofacial bones, orbits, and paranasal sinuses was performed without contrast according to standard protocol. Reformatted axial, sagittal, and coronal images of the thoracic and lumbar spine were obtained by the technologist from a concurrently performed body CT and sent to the workstation for review. CT dose reduction technique was used, including Automated Exposure Control. COMPARISON: CT brain stroke 04/12/2022 FINDINGS: Head: No acute intra- or extra-axial fluid collections are identified. There is mild cerebral volume loss with associated ex vacuo ventricular dilatation. The basilar cisterns are patent. No mass effect or midline shift is seen. The brock-white matter differentiation is normal. Periventricular white matter hypoattenuation is nonspecific, but can be seen in the setting of chronic small vessel ischemic disease. No acute calvarial fracture is identified. Soft tissue swelling and hematoma along the left anterior scalp. Maxillofacial:. Other than bilateral cataract extractions, the orbits appear normal. The paranasal sinuses are clear. 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 There are naty bullosa of the middle turbinates bilaterally. 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 There are degenerative changes of the temporomandibular joints, perhaps worse on the right side mild periodontal disease, with missing teeth. The hard palate, mandible, and temporomandibular joints appear otherwise grossly unremarkable. No acute facial bone fractures are identified. The mastoid air cells are clear. No soft tissue abnormality is identified. Cerumen seen within the bilateral external auditory canals. Mild soft tissue swelling along the forehead/frontal scalp. Cervical spine: Anterior fusion hardware from C3 through C7, where there is no osseous fusion from C3 to C5. Vertebral bodies are normal in height without evidence of acute fracture. Other than advanced middle atlantoaxial joint osteoarthritis, the craniocervical junction appears normal. There is advanced degenerative disc disease with fusion of C3-5 vertebrae. Mild to moderate central canal stenosis at multiple levels, worse at C5-C6. There are varying degrees of mild facet osteoarthritis. There are varying degrees of advanced uncovertebral joint osteoarthritis with the same degree of neural foraminal stenosis at these levels, moderate to severe bilateral C5-C6, and severe left C6-7. There is atherosclerotic calcification of the left carotid bifurcation. Thoracic spine: Mild exaggeration of the thoracic process. Minimal dextrocurvature of the upper thoracic spine and minimal levocurvature of the mid to lower thoracic spine. The alignment is otherwise maintained. Mild chronic compression of superior endplate of T12 with Schmorl's nodule. No evidence of acute fracture. The bone are osteopenic. There is mild degenerative disc disease. No significant central canal stenosis is seen. There are varying degrees of mild facet osteoarthritis. ??There are varying degrees of minimal neural foraminal stenosis at multiple levels. There is subsegmental atelectasis in the dependent portions of the lung bases. Lumbar spine: Postsurgical changes of laminectomy and posterior fusion of L4-S. Laminectomies are noted in the region. Mild central canal stenosis at L1-2 and L2-3. Moderate central canal stenosis at L3-4. No evidence of acute fracture. There is advanced degenerative disc disease. There are varying degrees of mild facet osteoarthritis. There are varying degrees of neural foraminal stenosis at multiple levels. A 3.6 cm simple cyst within the left renal pelvis. There is a suspected tiny nonobstructing left renal stone Procedure Note Dayton Kiran MD - 02/02/2024 PROCEDURE: CT HEAD WO CONTRAST, CT CERVICAL SPINE WO CONTRAST, CTFACIAL BONES WO CONTRAST, CT LUMBAR SPINE WO CONTRAST, CT THORACIC SPINE WO CONTRAST, DATE/TIME OF EXAM: 02/02/2024 11:32 AM, LOCATION [facility] INDICATION: Trauma EXAMINATION: 1. Computed tomography (CT) of the head without contrast 2. CT of the maxillofacial bones, orbits, and paranasal sinuses without contrast 3. CT of the cervical spine without contrast 4. CT of the thoracic spine without contrast 5. CT of the lumbar spine without contrast TECHNIQUE: CT of the head, cervical spine, and maxillofacial bones,orbits, and paranasal sinuses was performed without contrast according tostandard protocol. Reformatted axial, sagittal, and coronal images of thethoracic and lumbar spine were obtained by the technologist from a concurrently performed body CT and sent to the workstation for review. CT dosereduction technique was used, including Automated Exposure Control. COMPARISON: CT brain stroke 04/12/2022 FINDINGS: Head: No acute intra- or extra-axial fluid collections are identified. Thereis mild cerebral volume loss with associated ex vacuo ventriculardilatation. The basilar cisterns are patent. No mass effect or midline shift isseen. The brock-white matter differentiation is normal. Periventricular white matter hypoattenuation is nonspecific, but can be seen in the setting of chronic small vessel ischemic disease. No acute calvarial fracture is identified. Soft tissue swelling and hematoma along the left anterior scalp. Maxillofacial:. Other than bilateral cataract extractions, the orbits appear normal. The paranasal sinuses are clear. 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 There are naty bullosa of the middle turbinates bilaterally. 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 There are degenerative changes of the temporomandibular joints, perhaps worse onthe right side mild periodontal disease, with missing teeth. The hardpalate, mandible, and temporomandibular joints appear otherwise grossly unremarkable. No acute facial bone fractures are identified. The mastoid air cells are clear. No soft tissue abnormality is identified. Cerumenseen within the bilateral external auditory canals. Mild soft tissue swelling along the forehead/frontal scalp. Cervical spine: Anterior fusion hardware from C3 through C7, where there is no osseous fusion from C3 to C5. Vertebral bodies are normal in height without evidence of acute fracture. Other than advanced middle atlantoaxialjoint osteoarthritis, the craniocervical junction appears normal. There is advanced degenerative disc disease with fusion of C3-5 vertebrae. Mildto moderate central canal stenosis at multiple levels, worse at C5-C6.There are varying degrees of mild facet osteoarthritis. There are varyingdegrees of advanced uncovertebral joint osteoarthritis with the same degree of neural foraminal stenosis at these levels, moderate to severe bilateral C5-C6, and severe left C6-7. There is atherosclerotic calcification ofthe left carotid bifurcation. Thoracic spine: Mild exaggeration of the thoracic process. Minimal dextrocurvature ofthe upper thoracic spine and minimal levocurvature of the mid to lowerthoracic spine. The alignment is otherwise maintained. Mild chronic compressionof superior endplate of T12 with Schmorl's nodule. No evidence of acute fracture. The bone are osteopenic. There is mild degenerative discdisease. No significant central canal stenosis is seen. There are varying degreesof mild facet osteoarthritis. There are varying degrees of minimal neural foraminal stenosis at multiple levels. There is subsegmental atelectasisin the dependent portions of the lung bases. Lumbar spine: Postsurgical changes of laminectomy and posterior fusion of L4-S. Laminectomies are noted in the region. Mild central canal stenosis atL1-2 and L2-3. Moderate central canal stenosis at L3-4. No evidence of acute fracture. There is advanced degenerative disc disease. There are varying degreesof mild facet osteoarthritis. There are varying degrees of neural foraminal stenosis at multiple levels. A 3.6 cm simple cyst within the left renal pelvis. There is a suspected tiny nonobstructing left renal stone IMPRESSION: 1.No acute intracranial hemorrhage, midline shift, or significant mass effect. 2.No acute facial bone fractures identified. 3.No evidence of acute fracture in the cervical, thoracic, or lumbarspine. 4.Postsurgical changes in the cervical and lumbar spine as detailedabove. 5.Multilevel varying degrees of degenerative disc and joint disease ofthe cervical, thoracic, lumbar spine as outlined. 6.Please refer to the concurrent, dedicated body report for findings inthe chest, abdomen, and pelvis. > Dictated by Nehemiah Jiménez MD ([employer]ch[employer]) Dayton Stevenson MD have personally reviewed and interpretedthis examination/study. > Interpreting Provider: Dyaton Kiran MD on 02/02/2024 3:07 PM Erich Diaz MD CT ORDERABLES * CT FACIAL BONES WO CONTRAST (02/02/2024 11:31 AM CDT) Anatomical Region Laterality Modality Head Computed Tomogra phy 02/02/2024 11:1 7 AM CDT Impressions 02/02/2024 3:07 PM CDT IMPRESSION: 1.No acute intracranial hemorrhage, midline shift, or significant mass effect. 2.No acute facial bone fractures identified. 3.No evidence of acute fracture in the cervical, thoracic, or lumbar spine. 4.Postsurgical changes in the cervical and lumbar spine as detailed above. 5.Multilevel varying degrees of degenerative disc and joint disease of the cervical, thoracic, lumbar spine as outlined. 6.Please refer to the concurrent, dedicated body report for findings in the chest, abdomen, and pelvis. > Dictated by Nehemiah Jiménez MD ([employer] Merch[employer]iser) Dayton Stevenson MD have personally reviewed and interpreted this examination/study. > Interpreting Provider: Dayton Kiran MD on 02/02/2024 3:07 PM Narrative 02/02/2024 3:07 PM CDT PROCEDURE: ??CT HEAD WO CONTRAST, CT CERVICAL SPINE WO CONTRAST, CT FACIAL BONES WO CONTRAST, CT LUMBAR SPINE WO CONTRAST, CT THORACIC SPINE WO CONTRAST, DATE/TIME OF EXAM: ??02/02/2024 11:32 AM, LOCATION ??[facility] INDICATION: Trauma EXAMINATION: 1. Computed tomography (CT) of the head without contrast 2. CT of the maxillofacial bones, orbits, and paranasal sinuses without contrast 3. CT of the cervical spine without contrast 4. CT of the thoracic spine without contrast 5. CT of the lumbar spine without contrast TECHNIQUE: CT of the head, cervical spine, and maxillofacial bones, orbits, and paranasal sinuses was performed without contrast according to standard protocol. Reformatted axial, sagittal, and coronal images of the thoracic and lumbar spine were obtained by the technologist from a concurrently performed body CT and sent to the workstation for review. CT dose reduction technique was used, including Automated Exposure Control. COMPARISON: CT brain stroke 04/12/2022 FINDINGS: Head: No acute intra- or extra-axial fluid collections are identified. There is mild cerebral volume loss with associated ex vacuo ventricular dilatation. The basilar cisterns are patent. No mass effect or midline shift is seen. The brock-white matter differentiation is normal. Periventricular white matter hypoattenuation is nonspecific, but can be seen in the setting of chronic small vessel ischemic disease. No acute calvarial fracture is identified. Soft tissue swelling and hematoma along the left anterior scalp. Maxillofacial:. Other than bilateral cataract extractions, the orbits appear normal. The paranasal sinuses are clear. 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 There are naty bullosa of the middle turbinates bilaterally. 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 There are degenerative changes of the temporomandibular joints, perhaps worse on the right side mild periodontal disease, with missing teeth. The hard palate, mandible, and temporomandibular joints appear otherwise grossly unremarkable. No acute facial bone fractures are identified. The mastoid air cells are clear. No soft tissue abnormality is identified. Cerumen seen within the bilateral external auditory canals. Mild soft tissue swelling along the forehead/frontal scalp. Cervical spine: Anterior fusion hardware from C3 through C7, where there is no osseous fusion from C3 to C5. Vertebral bodies are normal in height without evidence of acute fracture. Other than advanced middle atlantoaxial joint osteoarthritis, the craniocervical junction appears normal. There is advanced degenerative disc disease with fusion of C3-5 vertebrae. Mild to moderate central canal stenosis at multiple levels, worse at C5-C6. There are varying degrees of mild facet osteoarthritis. There are varying degrees of advanced uncovertebral joint osteoarthritis with the same degree of neural foraminal stenosis at these levels, moderate to severe bilateral C5-C6, and severe left C6-7. There is atherosclerotic calcification of the left carotid bifurcation. Thoracic spine: Mild exaggeration of the thoracic process. Minimal dextrocurvature of the upper thoracic spine and minimal levocurvature of the mid to lower thoracic spine. The alignment is otherwise maintained. Mild chronic compression of superior endplate of T12 with Schmorl's nodule. No evidence of acute fracture. The bone are osteopenic. There is mild degenerative disc disease. No significant central canal stenosis is seen. There are varying degrees of mild facet osteoarthritis. ??There are varying degrees of minimal neural foraminal stenosis at multiple levels. There is subsegmental atelectasis in the dependent portions of the lung bases. Lumbar spine: Postsurgical changes of laminectomy and posterior fusion of L4-S. Laminectomies are noted in the region. Mild central canal stenosis at L1-2 and L2-3. Moderate central canal stenosis at L3-4. No evidence of acute fracture. There is advanced degenerative disc disease. There are varying degrees of mild facet osteoarthritis. There are varying degrees of neural foraminal stenosis at multiple levels. A 3.6 cm simple cyst within the left renal pelvis. There is a suspected tiny nonobstructing left renal stone Procedure Note Dayton Kiran MD - 02/02/2024 PROCEDURE: CT HEAD WO CONTRAST, CT CERVICAL SPINE WO CONTRAST, CTFACIAL BONES WO CONTRAST, CT LUMBAR SPINE WO CONTRAST, CT THORACIC SPINE WO CONTRAST, DATE/TIME OF EXAM: 02/02/2024 11:32 AM, LOCATION [facility] INDICATION: Trauma EXAMINATION: 1. Computed tomography (CT) of the head without contrast 2. CT of the maxillofacial bones, orbits, and paranasal sinuses without contrast 3. CT of the cervical spine without contrast 4. CT of the thoracic spine without contrast 5. CT of the lumbar spine without contrast TECHNIQUE: CT of the head, cervical spine, and maxillofacial bones,orbits, and paranasal sinuses was performed without contrast according tostandard protocol. Reformatted axial, sagittal, and coronal images of thethoracic and lumbar spine were obtained by the technologist from a concurrently performed body CT and sent to the workstation for review. CT dosereduction technique was used, including Automated Exposure Control. COMPARISON: CT brain stroke 04/12/2022 FINDINGS: Head: No acute intra- or extra-axial fluid collections are identified. Thereis mild cerebral volume loss with associated ex vacuo ventriculardilatation. The basilar cisterns are patent. No mass effect or midline shift isseen. The brock-white matter differentiation is normal. Periventricular white matter hypoattenuation is nonspecific, but can be seen in the setting of chronic small vessel ischemic disease. No acute calvarial fracture is identified. Soft tissue swelling and hematoma along the left anterior scalp. Maxillofacial:. Other than bilateral cataract extractions, the orbits appear normal. The paranasal sinuses are clear. 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 There are naty bullosa of the middle turbinates bilaterally. 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 There are degenerative changes of the temporomandibular joints, perhaps worse onthe right side mild periodontal disease, with missing teeth. The hardpalate, mandible, and temporomandibular joints appear otherwise grossly unremarkable. No acute facial bone fractures are identified. The mastoid air cells are clear. No soft tissue abnormality is identified. Cerumenseen within the bilateral external auditory canals. Mild soft tissue swelling along the forehead/frontal scalp. Cervical spine: Anterior fusion hardware from C3 through C7, where there is no osseous fusion from C3 to C5. Vertebral bodies are normal in height without evidence of acute fracture. Other than advanced middle atlantoaxialjoint osteoarthritis, the craniocervical junction appears normal. There is advanced degenerative disc disease with fusion of C3-5 vertebrae. Mildto moderate central canal stenosis at multiple levels, worse at C5-C6.There are varying degrees of mild facet osteoarthritis. There are varyingdegrees of advanced uncovertebral joint osteoarthritis with the same degree of neural foraminal stenosis at these levels, moderate to severe bilateral C5-C6, and severe left C6-7. There is atherosclerotic calcification ofthe left carotid bifurcation. Thoracic spine: Mild exaggeration of the thoracic process. Minimal dextrocurvature ofthe upper thoracic spine and minimal levocurvature of the mid to lowerthoracic spine. The alignment is otherwise maintained. Mild chronic compressionof superior endplate of T12 with Schmorl's nodule. No evidence of acute fracture. The bone are osteopenic. There is mild degenerative discdisease. No significant central canal stenosis is seen. There are varying degreesof mild facet osteoarthritis. There are varying degrees of minimal neural foraminal stenosis at multiple levels. There is subsegmental atelectasisin the dependent portions of the lung bases. Lumbar spine: Postsurgical changes of laminectomy and posterior fusion of L4-S. Laminectomies are noted in the region. Mild central canal stenosis atL1-2 and L2-3. Moderate central canal stenosis at L3-4. No evidence of acute fracture. There is advanced degenerative disc disease. There are varying degreesof mild facet osteoarthritis. There are varying degrees of neural foraminal stenosis at multiple levels. A 3.6 cm simple cyst within the left renal pelvis. There is a suspected tiny nonobstructing left renal stone IMPRESSION: 1.No acute intracranial hemorrhage, midline shift, or significant mass effect. 2.No acute facial bone fractures identified. 3.No evidence of acute fracture in the cervical, thoracic, or lumbarspine. 4.Postsurgical changes in the cervical and lumbar spine as detailedabove. 5.Multilevel varying degrees of degenerative disc and joint disease ofthe cervical, thoracic, lumbar spine as outlined. 6.Please refer to the concurrent, dedicated body report for findings inthe chest, abdomen, and pelvis. > Dictated by Nehemiah Jiménez MD ([employer]ch[employer]) Dayton Stevenson MD have personally reviewed and interpretedthis examination/study. > Interpreting Provider: Dayton Kiran MD on 02/02/2024 3:07 PM Erich Diaz MD CT ORDERABLES * CT HEAD WO CONTRAST - Head Trauma, CSF leak, mental status changes (02/02/2024 11:31 AM CDT) Only the most recent of4 resultswithin the time period is included. Anatomical Region Laterality Modality Head Computed Tomogra phy 02/02/2024 11:1 7 AM CDT Impressions 02/02/2024 3:07 PM CDT IMPRESSION: 1.No acute intracranial hemorrhage, midline shift, or significant mass effect. 2.No acute facial bone fractures identified. 3.No evidence of acute fracture in the cervical, thoracic, or lumbar spine. 4.Postsurgical changes in the cervical and lumbar spine as detailed above. 5.Multilevel varying degrees of degenerative disc and joint disease of the cervical, thoracic, lumbar spine as outlined. 6.Please refer to the concurrent, dedicated body report for findings in the chest, abdomen, and pelvis. > Dictated by Nehemiah Jiménez MD ([employer]ch[employer]) Dayton Stevenson MD have personally reviewed and interpreted this examination/study. > Interpreting Provider: Dayton Kiran MD on 02/02/2024 3:07 PM Narrative 02/02/2024 3:07 PM CDT PROCEDURE: ??CT HEAD WO CONTRAST, CT CERVICAL SPINE WO CONTRAST, CT FACIAL BONES WO CONTRAST, CT LUMBAR SPINE WO CONTRAST, CT THORACIC SPINE WO CONTRAST, DATE/TIME OF EXAM: ??02/02/2024 11:32 AM, LOCATION ??[facility] INDICATION: Trauma EXAMINATION: 1. Computed tomography (CT) of the head without contrast 2. CT of the maxillofacial bones, orbits, and paranasal sinuses without contrast 3. CT of the cervical spine without contrast 4. CT of the thoracic spine without contrast 5. CT of the lumbar spine without contrast TECHNIQUE: CT of the head, cervical spine, and maxillofacial bones, orbits, and paranasal sinuses was performed without contrast according to standard protocol. Reformatted axial, sagittal, and coronal images of the thoracic and lumbar spine were obtained by the technologist from a concurrently performed body CT and sent to the workstation for review. CT dose reduction technique was used, including Automated Exposure Control. COMPARISON: CT brain stroke 04/12/2022 FINDINGS: Head: No acute intra- or extra-axial fluid collections are identified. There is mild cerebral volume loss with associated ex vacuo ventricular dilatation. The basilar cisterns are patent. No mass effect or midline shift is seen. The brock-white matter differentiation is normal. Periventricular white matter hypoattenuation is nonspecific, but can be seen in the setting of chronic small vessel ischemic disease. No acute calvarial fracture is identified. Soft tissue swelling and hematoma along the left anterior scalp. Maxillofacial:. Other than bilateral cataract extractions, the orbits appear normal. The paranasal sinuses are clear. 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 There are naty bullosa of the middle turbinates bilaterally. 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 There are degenerative changes of the temporomandibular joints, perhaps worse on the right side mild periodontal disease, with missing teeth. The hard palate, mandible, and temporomandibular joints appear otherwise grossly unremarkable. No acute facial bone fractures are identified. The mastoid air cells are clear. No soft tissue abnormality is identified. Cerumen seen within the bilateral external auditory canals. Mild soft tissue swelling along the forehead/frontal scalp. Cervical spine: Anterior fusion hardware from C3 through C7, where there is no osseous fusion from C3 to C5. Vertebral bodies are normal in height without evidence of acute fracture. Other than advanced middle atlantoaxial joint osteoarthritis, the craniocervical junction appears normal. There is advanced degenerative disc disease with fusion of C3-5 vertebrae. Mild to moderate central canal stenosis at multiple levels, worse at C5-C6. There are varying degrees of mild facet osteoarthritis. There are varying degrees of advanced uncovertebral joint osteoarthritis with the same degree of neural foraminal stenosis at these levels, moderate to severe bilateral C5-C6, and severe left C6-7. There is atherosclerotic calcification of the left carotid bifurcation. Thoracic spine: Mild exaggeration of the thoracic process. Minimal dextrocurvature of the upper thoracic spine and minimal levocurvature of the mid to lower thoracic spine. The alignment is otherwise maintained. Mild chronic compression of superior endplate of T12 with Schmorl's nodule. No evidence of acute fracture. The bone are osteopenic. There is mild degenerative disc disease. No significant central canal stenosis is seen. There are varying degrees of mild facet osteoarthritis. ??There are varying degrees of minimal neural foraminal stenosis at multiple levels. There is subsegmental atelectasis in the dependent portions of the lung bases. Lumbar spine: Postsurgical changes of laminectomy and posterior fusion of L4-S. Laminectomies are noted in the region. Mild central canal stenosis at L1-2 and L2-3. Moderate central canal stenosis at L3-4. No evidence of acute fracture. There is advanced degenerative disc disease. There are varying degrees of mild facet osteoarthritis. There are varying degrees of neural foraminal stenosis at multiple levels. A 3.6 cm simple cyst within the left renal pelvis. There is a suspected tiny nonobstructing left renal stone Procedure Note Dayton Kiran MD - 02/02/2024 PROCEDURE: CT HEAD WO CONTRAST, CT CERVICAL SPINE WO CONTRAST, CTFACIAL BONES WO CONTRAST, CT LUMBAR SPINE WO CONTRAST, CT THORACIC SPINE WO CONTRAST, DATE/TIME OF EXAM: 02/02/2024 11:32 AM, LOCATION [facility] INDICATION: Trauma EXAMINATION: 1. Computed tomography (CT) of the head without contrast 2. CT of the maxillofacial bones, orbits, and paranasal sinuses without contrast 3. CT of the cervical spine without contrast 4. CT of the thoracic spine without contrast 5. CT of the lumbar spine without contrast TECHNIQUE: CT of the head, cervical spine, and maxillofacial bones,orbits, and paranasal sinuses was performed without contrast according tostandard protocol. Reformatted axial, sagittal, and coronal images of thethoracic and lumbar spine were obtained by the technologist from a concurrently performed body CT and sent to the workstation for review. CT dosereduction technique was used, including Automated Exposure Control. COMPARISON: CT brain stroke 04/12/2022 FINDINGS: Head: No acute intra- or extra-axial fluid collections are identified. Thereis mild cerebral volume loss with associated ex vacuo ventriculardilatation. The basilar cisterns are patent. No mass effect or midline shift isseen. The brock-white matter differentiation is normal. Periventricular white matter hypoattenuation is nonspecific, but can be seen in the setting of chronic small vessel ischemic disease. No acute calvarial fracture is identified. Soft tissue swelling and hematoma along the left anterior scalp. Maxillofacial:. Other than bilateral cataract extractions, the orbits appear normal. The paranasal sinuses are clear. 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 There are naty bullosa of the middle turbinates bilaterally. 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 There are degenerative changes of the temporomandibular joints, perhaps worse onthe right side mild periodontal disease, with missing teeth. The hardpalate, mandible, and temporomandibular joints appear otherwise grossly unremarkable. No acute facial bone fractures are identified. The mastoid air cells are clear. No soft tissue abnormality is identified. Cerumenseen within the bilateral external auditory canals. Mild soft tissue swelling along the forehead/frontal scalp. Cervical spine: Anterior fusion hardware from C3 through C7, where there is no osseous fusion from C3 to C5. Vertebral bodies are normal in height without evidence of acute fracture. Other than advanced middle atlantoaxialjoint osteoarthritis, the craniocervical junction appears normal. There is advanced degenerative disc disease with fusion of C3-5 vertebrae. Mildto moderate central canal stenosis at multiple levels, worse at C5-C6.There are varying degrees of mild facet osteoarthritis. There are varyingdegrees of advanced uncovertebral joint osteoarthritis with the same degree of neural foraminal stenosis at these levels, moderate to severe bilateral C5-C6, and severe left C6-7. There is atherosclerotic calcification ofthe left carotid bifurcation. Thoracic spine: Mild exaggeration of the thoracic process. Minimal dextrocurvature ofthe upper thoracic spine and minimal levocurvature of the mid to lowerthoracic spine. The alignment is otherwise maintained. Mild chronic compressionof superior endplate of T12 with Schmorl's nodule. No evidence of acute fracture. The bone are osteopenic. There is mild degenerative discdisease. No significant central canal stenosis is seen. There are varying degreesof mild facet osteoarthritis. There are varying degrees of minimal neural foraminal stenosis at multiple levels. There is subsegmental atelectasisin the dependent portions of the lung bases. Lumbar spine: Postsurgical changes of laminectomy and posterior fusion of L4-S. Laminectomies are noted in the region. Mild central canal stenosis atL1-2 and L2-3. Moderate central canal stenosis at L3-4. No evidence of acute fracture. There is advanced degenerative disc disease. There are varying degreesof mild facet osteoarthritis. There are varying degrees of neural foraminal stenosis at multiple levels. A 3.6 cm simple cyst within the left renal pelvis. There is a suspected tiny nonobstructing left renal stone IMPRESSION: 1.No acute intracranial hemorrhage, midline shift, or significant mass effect. 2.No acute facial bone fractures identified. 3.No evidence of acute fracture in the cervical, thoracic, or lumbarspine. 4.Postsurgical changes in the cervical and lumbar spine as detailedabove. 5.Multilevel varying degrees of degenerative disc and joint disease ofthe cervical, thoracic, lumbar spine as outlined. 6.Please refer to the concurrent, dedicated body report for findings inthe chest, abdomen, and pelvis. > Dictated by Nehemiah Jiménez MD (Seasonal Retail Merchandiser) I, Dayton Kiran MD have personally reviewed and interpretedthis examination/study. > Interpreting Provider: Dayton iKran MD on 02/02/2024 3:07 PM E[address] MD CT ORDERABLES * XR CHEST 1VW PORTABLE (02/02/2024 10:57 AM CDT) Only the most recent of8 resultswithin the time period is included. Anatomical Region Laterality Modality Chest Radiographic Natasha ging 02/02/2024 10:5 7 AM CDT Narrative 02/02/2024 12:38 PM CDT PROCEDURE: ??XR CHEST 1VW PORTABLE, DATE/TIME OF EXAM: ??02/02/2024 10:57 AM, LOCATION ??[facility] INDICATION: Trauma COMPARISON: X-ray chest 02/17/2023. TECHNIQUE: Frontal radiograph of the chest. FINDINGS/IMPRESSION: There is no focal consolidation, pleural effusion, or pneumothorax. The cardiomediastinal silhouette is stable. There is age indeterminate right lateral seventh rib fracture deformity. Report dictated by Nehemiah Jiménez MD, (Seasonal Retail Merchandiser). Annie Stevenson MD have personally reviewed and interpreted this examination/study. > Interpreting Provider: Annie Prater MD on 02/02/2024 12:38 PM Procedure Note Annie Prater MD - 02/02/2024 PROCEDURE: XR CHEST 1VW PORTABLE, DATE/TIME OF EXAM: 02/02/2024 10:57AM, LOCATION [facility] INDICATION: Trauma COMPARISON: X-ray chest 02/17/2023. TECHNIQUE: Frontal radiograph of the chest. FINDINGS/IMPRESSION: There is no focal consolidation, pleural effusion, or pneumothorax. The cardiomediastinal silhouette is stable. There is age indeterminate right lateral seventh rib fracture deformity. Report dictated by Nehemiah Jiménez MD, (Seasonal Retail Merchandiser). Annie Stevenson MD have personally reviewed and interpreted this examination/study. > Interpreting Provider: Annie Parter MD on 02/02/2024 12:38 PM Erich Diaz MD DIAGNOSTIC IMAGING O RDERABLES * [facility] (02/02/2024 9:51 AM CDT) Only the most recent of11 resultswithin the time period is included. PT 13.2 12.1 - 14.8 Seconds 02/02/2024 10:16 AM CDT [facility] INR 1.0 See Comment 02/02/2024 10:[address] [facility] Comment:The suggested therap eutic range for standard coumadin (warfarin) therapy is an INR of 2.0-3.0. For high-risk patients (Mechanical Mitral Valve Prosthesis, etc.), the suggested prophylactic therapeutic range is an INR of 2.5-3.5. Blood BLOOD SPECIMEN / Unknown Venipuncture / Unknown 02/02/2024 9:51 AM CDT 02/02/2024 9:54 AM CDT Erich Diaz MD LAB - COAGULATION OR DERABLES Performing Organization Address City/[facility]/ZIP Co de Phone Number [address] [address], [facility] [phone] * TROPONIN-I HIGH SENSITIVE BASELINE + 1HR (02/02/2024 9:51 AM CDT) Troponin I High Sensitive 7 <=14 ng/L 02/02/2024 10:[address] [facility] Blood BLOOD SPECIMEN / Unknown Venipuncture / Unknown 02/02/2024 9:51 AM CDT 02/02/2024 9:54 AM CDT Erich Diaz MD LAB - CHEMISTRY ORDE SELENA Performing Organization Address City/[facility]/ZIP Co de Phone Number [address] [address], [facility] [phone] * TYPE + SCREEN PANEL (02/02/2024 9:51 AM CDT) Only the most recent of10 resultswithin the time period is included. Antibody Screen NEG 10:31 AM CDT [facility] ABO Rh O POS 02/02/2024 10:31 AM CDT [facility] Blood Bank BLOOD SPECIMEN / Unknown Venipuncture / Unknown 02/02/2024 9:51 AM CDT 02/02/2024 9:54 AM CDT Erich Diaz MD LAB - BLOOD BANK ORD ERABLES [facility] [address] [place] [address], [facility] [phone] * (ABNORMAL) COMPREHENSIVE METABOLIC PANEL (02/02/2024 9:51 AM [facility]) Only the most recent of34 resultswithin the time period is included. BUN 13 7 - 26 mg/dL 02/02/2024 10:23 AM [facility] Creatinine 0.93 0.56 - 0.96 mg/dL 02/02/2024 10:23 AM [facility] Sodium 145 136 - 145 mmol/L 02/02/2024 10:23 AM [facility] Potassium 3.1(L) 3.5 - 4.5 mmol/L 02/02/2024 10:23 AM [facility] Chloride 109(H) 98 - 107 mmol/L 02/02/2024 10:23 AM [facility] CO2 27 22 - 29 mmol/L 02/02/2024 10:23 AM [facility] Glucose 140(H) 70 - 115 mg/dL 02/02/2024 10:23 AM [facility] Calcium 9.2 8.4 - 10.2 mg/dL 02/02/2024 10:23 AM [facility] Protein Total 6.2 6.0 - 8.3 g/dL 02/02/2024 10:23 AM [facility] Albumin 3.7 3.4 - 5.0 g/dL 02/02/2024 10:23 AM [facility] Bilirubin Total 0.6 0.2 - 1.2 mg/dL 02/02/2024 10:23 AM [facility] Alkaline Phosphatase 72 40 - 150 U/L 02/02/2024 10:23 AM [facility] ALT <5(L) 5 - 55 U/L 02/02/2024 10:23 AM [facility] AST 17 5 - 34 U/L 02/02/2024 10:23 AM [facility] Anion Gap 9 6 - 16 02/02/2024 10:[address] [facility] BUN/Creatinine Ratio 14 7 - 23 02/02/2024 10:23 AM [facility] Osmolality Calculated 302(H) 275 - 295 mOsm/kg 02/02/2024 10:23 AM [facility] Albumin/Globulin Ratio 1.5 1.1 - 2.3 02/02/2024 10:23 AM [facility] eGFR by CKD-EPI 67(L) >=90 mL/min/1.7 3 m2 02/02/2024 10:23 AM [facility] Blood BLOOD SPECIMEN / Unknown Venipuncture / Unknown 02/02/2024 9:51 AM CDT 02/02/2024 9:54 AM CDT Erich Diaz MD LAB - CHEMISTRY ORDE SELENA [facility] Organization Address City/State/ZIP Co de Phone Number [facility] [address] [place] [phone], [facility] [phone] * ALCOHOL ETHYL BLOOD (02/02/2024 9:51 AM CDT) Only the most recent of4 resultswithin the time period is included. Ethanol (mg/dL) <10 <10 mg/dL 10:23 AM [facility] Ethanol Calculated (g/dL) <0.010 <=0.010 g/dL 02/02/2024 10:[address] [facility] Blood BLOOD SPECIMEN / Unknown Venipuncture / Unknown 02/02/2024 9:51 AM CDT 02/02/2024 9:[address] [facility] - 02/02/2024 10:23 AM CDT Ethanol Interp <10: None Detected. Depression of PROFILE STITCHING MACHINE OPERATOR: >100 mg/dl Potentially Critical: >250 mg/dl Potentially Fatal >400 mg/dl Ethanol in the patient's blood will contribute to the osmolar gap. Ethanol's contribution to the osmolar gap can be estimated by dividing the concentration of ethanol in mg/dL by 4.6. This test is for clinical use only and does not equal a VELMA for legal purposes. Erich Diaz MD LAB - CHEMISTRY [facility]NER [place]TER[place] [facility] Organization Address City/State/ZIP Co de Phone Number [facility] [address] [place] [address], [facility] [phone] * XR FOOT LEFT 2VW (01/08/2024 11:54 AM CDT) Anatomical Region Laterality Modality Ankle / Foot Radiographic Natasha ging 01/08/2024 11:5 6 AM CDT Impressions 01/08/2024 11:58 AM CDT IMPRESSION: Left ankle soft tissue swelling. > Interpreting Provider: Katy Dao MD on 01/08/2024 11:58 AM Narrative 01/08/2024 11:58 AM CDT PROCEDURE: ??XR ANKLE LEFT 3VW OR MORE, XR FOOT LEFT 2VW DATE/TIME OF EXAM: ??01/08/2024 11:54 AM CLINICAL INFORMATION: None relevant/not provided if blank. Indication: M67.972: Unspecified disorder of synovium and tendon, left ankle and foot M25.472: Effusion, left ankle Additional History: COMPARISON: None. FINDINGS: Left ankle: There is no fracture. Alignment is normal. Joint spaces are normal. There is soft tissue swelling. Left foot: There is no fracture. Alignment is normal. There is joint space widening at the proximal interphalangeal joint of the left fourth and fifth toes. There is no appreciable soft tissue abnormality. Procedure Note Katy Dao MD - 01/08/2024 PROCEDURE: XR ANKLE LEFT 3VW OR MORE, XR FOOT LEFT 2VW DATE/TIME OF EXAM: 01/08/2024 11:54 AM CLINICAL INFORMATION: None relevant/not provided if blank. Indication: M67.972: Unspecified disorder of synovium and tendon, left ankle and foot M25.472: Effusion, left ankle Additional History: COMPARISON: None. FINDINGS: Left ankle: There is no fracture. Alignment is normal. Joint spaces are normal. There is soft tissue swelling. Left foot: There is no fracture. Alignment is normal. There is jointspace widening at the proximal interphalangeal joint of the left fourth andfifth toes. There is no appreciable soft tissue abnormality. IMPRESSION: Left ankle soft tissue swelling. > Interpreting Provider: Katy Dao MD on 01/08/2024 11:58 AM Erica Reno ASTRONAUT MISSION SPECIALIST-WINDOWS AND DOORS INSTALLER DIAGNOSTIC IMAGING ORDERABLES * XR ANKLE LEFT 3VW OR MORE (01/08/2024 11:54 AM CDT) Only the most recent of2 resultswithin the time period is included. Anatomical Region Laterality Modality Lower Extremity Radiographic Natasha ging 01/08/2024 11:5 6 AM CDT Impressions 01/08/2024 11:58 AM CDT IMPRESSION: Left ankle soft tissue swelling. > Interpreting Provider: Katy Dao MD on 01/08/2024 11:58 AM Narrative 01/08/2024 11:58 AM CDT PROCEDURE: ??XR ANKLE LEFT 3VW OR MORE, XR FOOT LEFT 2VW DATE/TIME OF EXAM: ??01/08/2024 11:54 AM CLINICAL INFORMATION: None relevant/not provided if blank. Indication: M67.972: Unspecified disorder of synovium and tendon, left ankle and foot M25.472: Effusion, left ankle Additional History: COMPARISON: None. FINDINGS: Left ankle: There is no fracture. Alignment is normal. Joint spaces are normal. There is soft tissue swelling. Left foot: There is no fracture. Alignment is normal. There is joint space widening at the proximal interphalangeal joint of the left fourth and fifth toes. There is no appreciable soft tissue abnormality. Procedure Note Katy Dao MD - 01/08/2024 PROCEDURE: XR ANKLE LEFT 3VW OR MORE, XR FOOT LEFT 2VW DATE/TIME OF EXAM: 01/08/2024 11:54 AM CLINICAL INFORMATION: None relevant/not provided if blank. Indication: M67.972: Unspecified disorder of synovium and tendon, left ankle and foot M25.472: Effusion, left ankle Additional History: COMPARISON: None. FINDINGS: Left ankle: There is no fracture. Alignment is normal. Joint spaces are normal. There is soft tissue swelling. Left foot: There is no fracture. Alignment is normal. There is jointspace widening at the proximal interphalangeal joint of the left fourth andfifth toes. There is no appreciable soft tissue abnormality. IMPRESSION: Left ankle soft tissue swelling. > Interpreting Provider: Katy Dao MD on 01/08/2024 11:58 AM Erica Reno ASTRONAUT MISSION SPECIALIST-WINDOWS AND DOORS INSTALLER DIAGNOSTIC IMAGING ORDERABLES * (ABNORMAL) RENAL FUNCTION PANEL (12/29/2023 4:04 AM CDT) Only the most recent of9 resultswithin the time period is included. Glucose 135(H) 70 - 105 mg/dL 12/29/2023 6:09 AM CDT [facility] Sodium 137 136 - 145 mmol/L 12/29/2023 6:09 AM CDT [facility] Potassium 3.9 3.5 - 5.1 mmol/L 12/29/2023 6:09 AM CDT [facility] Chloride 105 98 - 107 mmol/L 12/29/2023 6:09 AM CDT [facility] CO2 22 22 - 29 mmol/L 12/29/2023 6:09 AM CDT [facility] Calcium 9.4 8.4 - 10.4 mg/dL 12/29/2023 6:09 AM T [facility] Anion Gap 10 6 - 16 mmol/L 12/29/2023 6:09 AM CDT [facility] BUN 23 7 - 26 mg/dL 12/29/2023 6:09 AM T [facility] Creatinine 0.97 0.57 - 1.11 mg/dL 12/29/2023 6:09 AM CDT [facility] Albumin 3.6 3.4 - 5.0 gm/dL 12/29/2023 6:09 AM T [facility] Phosphorus 3.6 2.3 - 4.7 mg/dL 12/29/2023 6:09 AM T [facility] eGFR by CKD-EPI 64(L) >=90 mL/min/1.7 3 m2 12/29/2023 6:09 AM T [facility] Blood BLOOD SPECIMEN / Unknown Lab Venipuncture / Unknown 12/29/2023 4:04 AM CDT 12/29/2023 5:25 AM CDT Mara Stewart MD LAB - CHEMISTRY GUNNER WALTERS Performing Organization Address City/[facility] Co de Phone Number [facility] [address] [place] [address] * (ABNORMAL) HEMOGLOBIN A1C (12/28/2023 1:51 AM CDT) Only the most recent of18 resultswithin the time period is included. Hemoglobin A1c 7.0(H) <5.7 % 12/28/2023 3:11 AM CDT [facility] Estimated Average Glucose 154 mg/dL 12/28/2023 3:11 AM CDT [facility] Blood BLOOD SPECIMEN / Unknown Lab Venipuncture / Unknown 12/28/2023 1:51 AM CDT 12/28/2023 2:58 AM CDT Narrative [facility] - 12/28/2023 3:11 AM CDT HbA1c [...] Standardization Program (NGSP) certified method. Lisa Matthews APRN-WINDOWS AND DOORS INSTALLER LAB - CH EMISTRY ORDERABLES [facility] [address] [place] [address] * CULTURE BLOOD (12/27/2023 2:15 AM CDT) Only the most recent of8 resultswithin the time period is included. Culture No growth day 5 LYNNE 01/01/2024 8:01 AM CDT [facility] MICROBIOLOGY Blood PERIPHERAL BLOOD / Unknown Lab Venipuncture / Unknown 12/27/2023 2:15 AM CDT 12/27/2023 3:47 AM CDT Jovany LIZ LAB - MICROBIOLOGY ORDERABLES Performing Organization Address City/[facility] Co de Phone Number [facility] MICROBIOLOGY [address] [phone] * CT ABDOMEN PELVIS WO CONTRAST (12/26/2023 10:25 PM CDT) Only the most recent of7 resultswithin the time period is included. Anatomical Region Laterality Modality Abdomen, Pelvis Computed Tomogra phy 12/27/2023 8:20 AM CDT Impressions 12/27/2023 8:28 AM CDT IMPRESSION: 1. Acute cystitis with a gas-forming organism. No evidence of an obstructing calcified urinary stone or obstructive uropathy is identified on either side and there is no periureteral or perirenal fat stranding to indicate an ascending urinary tract infection. Evaluation of pyelonephritis, if any, is limited without intravenous contrast. 2. Interval enlargement of the peripelvic simple cyst of left kidney and development of severe degenerative disc disease at L3-L4 and a Schmorl's node in superior endplate of T12. 3. Diverticulosis of sigmoid without diverticulitis. Please see text for details and findings. > Interpreting Provider: Christofer Milian MD on 12/27/2023 8:28 AM Narrative 12/27/2023 8:28 AM CDT PROCEDURE: ??CT ABDOMEN PELVIS WO CONTRAST DATE/TIME OF EXAM: ??12/26/2023 10:26 PM CLINICAL INFORMATION: None relevant/not provided if blank. Indication: N39.0: Urinary tract infection, site not specified R31.9: Hematuria, unspecified CT ABDOMEN PELVIS WITHOUT CONTRAST. HISTORY: N39.0: Urinary tract infection, site not specified; R31.9: Hematuria, unspecified COMPARISON: CT abdomen pelvis without contrast dated 03/10/2013 TECHNIQUE: Spiral axial scanning and reconstructed coronal and sagittal imaging of the abdomen and pelvis are performed without intravenous contrast administration. Oral contrast was not used. FINDINGS: There is small volume of air in nondependent portion of the urinary bladder and there is urinary bladder wall thickening with perivesicular minimal fat stranding indicating cystitis with a gas-forming organism. No periureteral or perirenal fat stranding is present to indicate ascending ureteritis. Evaluation of pyelonephritis is limited, but there is no evidence of diverticulitis on this nonenhanced study. A peripelvic simple cysts of the left kidney has enlarged in the interval currently measuring 3.3 cm in diameter with a mean measured density of 2.4 Hounsfield units. A punctate nonobstructing calcified urinary stone is seen in each kidney which are new from the prior study. There is no hydronephrosis or hydroureter on either side. The liver, spleen, adrenal glands, and pancreas are within normal limits, for a nonenhanced study. The gallbladder is surgically absent, unchanged. No biliary or pancreatic ductal dilatation is identified. There is no evidence of pneumobilia. The aorta appears normal in size and course and demonstrates infrarenal atherosclerotic calcifications which have progressed in the interval. The accessory calcifications in the origin of left renal artery are progressed in the interval and may have causing hemodynamically significant stenosis. Atherosclerotic calcifications of the origin of celiac trunk and superior mesenteric artery are new from the prior study, but are not associated with hemodynamically significant stenosis. The stomach and the entire small and large bowel are within normal limits. The tip of cecum extends to the right hemipelvis. The appendix is is not discretely identified. There are no secondary signs of appendicitis. There is mild diverticulosis of sigmoid without diverticulitis. 2 of these diverticula are hyperdense, likely due to retained ingested material. The volume of stool is average. The uterus is surgically absent. Neither ovary is discretely visible. There are no adnexal lesions or free fluid in the pelvis. There are a few scattered non-pathologically enlarged lymph nodes in the pelvis. No ascites, abscess, lymphadenopathy or free air is identified. The imaged body wall is unremarkable. In the imaged portion of the chest, the gastroesophageal junction is normal and the imaged lung bases are aerated and clear. The heart is not enlarged and no pleural effusion is seen. The bone window images are stable postsurgical changes of laminectomy and posterior fusion of lower lumbar spine and the donor site of the bone graft of the right which appear stable and uncomplicated. The severe degenerative disc disease at L3-L4 is developed in the interval and there is a new Schmorl's nodes and mild compression of superior endplate of T12. No acute fracture or suspicious intrinsic bony lesion is identified. Procedure Note Christofer Milian MD - 12/27/2023 PROCEDURE: CT ABDOMEN PELVIS WO CONTRAST DATE/TIME OF EXAM: 12/26/2023 10:26 PM CLINICAL INFORMATION: None relevant/not provided if blank. Indication: N39.0: Urinary tract infection, site not specified R31.9: Hematuria, unspecified CT ABDOMEN PELVIS WITHOUT CONTRAST. HISTORY: N39.0: Urinary tract infection, site not specified; R31.9: Hematuria, unspecified COMPARISON: CT abdomen pelvis without contrast dated 03/10/2013 TECHNIQUE: Spiral axial scanning and reconstructed coronal and sagittal imaging of the abdomen and pelvis are performed without intravenous contrast administration. Oral contrast was not used. FINDINGS: There is small volume of air in nondependent portion of the urinarybladder and there is urinary bladder wall thickening with perivesicular minimalfat stranding indicating cystitis with a gas-forming organism. Noperiureteral or perirenal fat stranding is present to indicate ascending ureteritis. Evaluation of pyelonephritis is limited, but there is no evidence of diverticulitis on this nonenhanced study. A peripelvic simple cysts ofthe left kidney has enlarged in the interval currently measuring 3.3 cm in diameter with a mean measured density of 2.4 Hounsfield units. Apunctate nonobstructing calcified urinary stone is seen in each kidney which arenew from the prior study. There is no hydronephrosis or hydroureter oneither side. The liver, spleen, adrenal glands, and pancreas are within normallimits, for a nonenhanced study. The gallbladder is surgically absent,unchanged. No biliary or pancreatic ductal dilatation is identified. There is no evidence of pneumobilia. The aorta appears normal in size and course and demonstrates infrarenal atherosclerotic calcifications which have progressed in the interval.The accessory calcifications in the origin of left renal artery areprogressed in the interval and may have causing hemodynamically significantstenosis. Atherosclerotic calcifications of the origin of celiac trunk andsuperior mesenteric artery are new from the prior study, but are not associatedwith hemodynamically significant stenosis. The stomach and the entire small and large bowel are within normallimits. The tip of cecum extends to the right hemipelvis. The appendix is is not discretely identified. There are no secondary signs of appendicitis.There is mild diverticulosis of sigmoid without diverticulitis. 2 of these diverticula are hyperdense, likely due to retained ingested material.The volume of stool is average. The uterus is surgically absent. Neither ovary is discretely visible.There are no adnexal lesions or free fluid in the pelvis. There are a few scattered non-pathologically enlarged lymph nodes in the pelvis. No ascites, abscess, lymphadenopathy or free air is identified. The imaged body wall is unremarkable. In the imaged portion of the chest, the gastroesophageal junction isnormal and the imaged lung bases are aerated and clear. The heart is notenlarged and no pleural effusion is seen. The bone window images are stable postsurgical changes of laminectomyand posterior fusion of lower lumbar spine and the donor site of the bonegraft of the right which appear stable and uncomplicated. The severedegenerative disc disease at L3-L4 is developed in the interval and there is a new Schmorl's nodes and mild compression of superior endplate of T12. Noacute fracture or suspicious intrinsic bony lesion is identified. IMPRESSION: 1. Acute cystitis with a gas-forming organism. No evidence of an obstructing calcified urinary stone or obstructive uropathy isidentified on either side and there is no periureteral or perirenal fat strandingto indicate an ascending urinary tract infection. Evaluation of pyelonephritis, if any, is limited without intravenous contrast. 2. Interval enlargement of the peripelvic simple cyst of left kidney and development of severe degenerative disc disease at L3-L4 and a Schmorl's node in superior endplate of T12. 3. Diverticulosis of sigmoid without diverticulitis. Please see text for details and findings. > Interpreting Provider: Christofer Milian MD on 12/27/2023 8:28 AM Katlin Darby DO CT ORDERABLES * (ABNORMAL) URINALYSIS REFLEX TO MICROSCOPIC NO CULTURE (12/26/2023 1:43 PM CDT) Only the most recent of18 resultswithin the time period is included. Color UA Yellow Straw, Yellow 12/26/2023 1:55 PM CDT [facility] Clarity UA Slt Cloudy(A) Clear 12/26/2023 1:55 PM CDT [facility] Glucose UA Negative Negative 12/26/2023 1:55 PM CDT [facility] Bilirubin UA Negative Negative 12/26/2023 1:55 PM CDT [facility] Ketone UA Negative Negative 12/26/2023 1:55 PM CDT [facility] Specific Henrietta UA 1.010 1.005 - 1.030 12/26/2023 1:55 PM CDT [facility] Blood UA Negative Negative 12/26/2023 1:55 PM CDT [facility] pH UA 6.0 5.0 - 8.0 pH 12/26/2023 1:55 PM CDT [facility] Protein UA 2+(A) Negative 12/26/2023 1:55 PM CDT [facility] Urobilinogen UA Negative Negative mg/dL 12/26/2023 1:55 PM CDT [facility] Nitrite UA Negative Negative 12/26/2023 1:55 PM CDT [facility] Leukocyte UA 2+(A) Negative 12/26/2023 1:55 PM CDT [facility] Urine Microscopy Urine microscopy to follow 12/26/2023 1:55 PM CDT [facility] Urine URINE SPECIMEN OBTAINED BY CLEAN CATCH PROCEDURE / Unknown Collection / Unknown 12/26/2023 1:43 PM CDT 12/26/2023 1:50 PM CDT Narrative [facility] - 12/26/2023 1:55 PM CDT Ascorbic Acid can cause false negative urine strip tests for blood, glucose, nitrite, and bilirubin. Jovany LIZ LAB - URINALYSIS OR DERABLES [facility] [address] [place] [address] * (ABNORMAL) URINE MICROSCOPIC ONLY (12/26/2023 1:43 PM CDT) RBC UA 11-20(A) 0 - 5 # /hpf 12/26/2023 1:59 PM CDT [facility] WBC UA >100(A) 0 - 5 # /hpf 12/26/2023 1:59 PM CDT [facility] Bacteria UA Trace(A) None Seen 12/26/2023 1:59 PM CDT [facility] Squamous Epithelial Cells 3-5 0 - 5 /hpf 12/26/2023 1:59 PM CDT [facility] Urine URINE SPECIMEN OBTAINED BY CLEAN CATCH PROCEDURE / Unknown Collection / Unknown 12/26/2023 1:43 PM CDT 12/26/2023 1:50 PM CDT Narrative [facility] - 12/26/2023 1:59 PM CDT Jovany LIZ LAB - URINALYSIS OR DERABLES [facility] [address] [place] [address] * [place] [facility] PVR U&/BLADD CAPCTY US NON (12/26/2023 11:17 AM CDT) Narrative Coni Mccord RN - 12/26/2023 11:17 AM CDT Coni Mccord RN ? 12/26/2023 ??1:11 PM Bladder Scan performed on 12/26/2023: Results showing: ??55 mls. Cayla Ramirez ASTRONAUT MISSION SPECIALIST-WINDOWS AND DOORS INSTALLER PROCEDURE/MINOR SURGICAL ORDERABLES * PATHOLOGY/CYTOLOGY REPORT ORDER (12/26/2023) 12/26/2023 Narrative 12/26/2023 Ordered by an unspecified provider. Scanned Document LAB - PATHOLOGY/CYTO LOGY ORDERABLES * LAMOTRIGINE LEVEL (12/24/2023 11:15 AM CDT) Only the most recent of2 resultswithin the time period is included. Lamotrigine 6.8 2.0 - 20.0 ug/mL [facility] INSURANCE BILL Comment:Detection Limit = 1. 0 Blood BLOOD SPECIMEN / Unknown 12/24/2023 11:15 AM CDT 12/24/2023 Narrative Resulting Agency Comment Lab Testing performed at: [address] ??[facility] [phone] Larry Anna MD LAB - THERAPEUTIC DRUG MONITORING ORDERABLES [facility] [address] [place] [address] * (ABNORMAL) URINALYSIS W/MICROSCOPIC NO CULTURE (12/12/2023 5:19 AM CDT) Only the most recent of14 resultswithin the time period is included. Color UA Yellow Straw, Yellow 12/12/2023 5:51 AM [facility] Clarity UA Turbid(A) Clear 12/12/2023 5:51 AM [facility] Specific Henrietta UA 1.011 1.005 - 1.030 12/12/2023 5:51 AM [facility] pH UA 6.0 5.0 - 8.0 pH 12/12/2023 5:51 AM [facility] Protein UA 2+(A) Negative 12/12/2023 5:51 AM [facility] Glucose UA Negative Negative 12/12/2023 5:51 AM [facility] Ketone UA Negative Negative 12/12/2023 5:51 AM [facility] Bilirubin UA Negative Negative 12/12/2023 5:51 AM [facility] Blood UA Negative Negative 12/12/2023 5:51 AM [facility] Nitrite UA Negative Negative 12/12/2023 5:51 AM [facility] Leukocyte Esterase 3+(A) Negative 12/12/2023 5:51 AM [facility] Urobilinogen UA Negative Negative mg/dL 12/12/2023 5:51 AM [facility] RBC UA 21-50(A) None Seen, 0-2, 3-5 /HPF 12/12/2023 5:[address] [facility] WBC UA >100(A) None Seen, 0-5 /HPF 12/12/2023 5:[address] [facility] WBC Clumps Many(A) None /HPF 12/12/2023 5:[address] [facility] Squamous Epithelial Cells UA None Seen None Seen, 0-2, 3-5 /HPF 12/12/2023 5:[address] [facility] Urine URINE SPECIMEN OBTAINED BY CLEAN CATCH PROCEDURE / Unknown Collection / Unknown 12/12/2023 5:19 AM CDT 12/12/2023 5:[address] [facility] - 12/12/2023 5:51 AM CDT Demetris Johnson MD LAB - URINALYSIS ORD ERABLES [facility] [address] [place] [address], [facility] [phone] * [place] [facility] PVR U&/BLADD CAPCTY US NON (11/27/2023 2:55 PM CDT) Narrative Redd Zhang MA - 11/27/2023 2:55 PM CDT Redd Zhang MA ? 11/28/2023 ??4:30 PM PVR- 576ml Cayla Ramirez ASTRONAUT MISSION SPECIALIST-WINDOWS AND DOORS INSTALLER PROCEDURE/MINOR SURGICAL ORDERABLES * EKG 12-LEAD (11/02/2023 3:28 PM CDT) Only the most recent of19 resultswithin the time period is included. Ventricular Rate 78 BPM [facility] Atrial Rate 78 BPM [facility] P-R Interval 164 ms [facility] QRS Duration ms 88 ms [facility] Q-T Interval ms 402 ms [facility] QTC Calculation (Bezet) 458 ms [facility] Calculated P Sullivan 60 degrees [facility] Calculated R Sullivan 58 degrees [facility] Calculated T Sullivan 44 degrees [facility] Interpretation EKG NORMAL SINUS RHYTHM Poor R wave progression in precordial leads POSSIBLE ANTERIOR INFARCT , AGE UNDETERMINED ABNORMAL ECG WHEN COMPARED WITH ECG OF 17-FEB-2023 19:32, VENT. RATE HAS DECREASED by 6 bpm LEFT BUNDLE BRANCH BLOCK IS NO LONGER PRESENT BORDERLINE CRITERIA FOR ANTERIOR INFARCT ARE NOW PRESENT QT HAS SHORTENED Confirmed by ERICH HUGGINS MD ([id number]) on 12/13/2023 7:23:43 AM [facility]EX[facility] QUIROGA 11/02/2023 3:28 PM CDT 12/13/2023 7:23 AM CDT Erich Huggins MD ECG ORDERABLES [facility] * LAB RESULTS ORDER (10/05/2023) Only the most recent of10 resultswithin the time period is included. 10/05/2023 Narrative 10/05/2023 Ordered by an unspecified provider. Scanned Document LAB - THERAPEUTIC DR NAWAF MONITORING ORDERABLES * VAS BILATERAL VENOUS DUPLEX LE (08/16/2023 1:05 PM [facility]) Anatomical Region Laterality Modality Lower Extremity Intravascular Ul trasound 08/16/2023 12:4 6 PM [facility] Narrative Procedure Note Jovany Eller MD - 08/17/2023 Erich Huggins MD VASCULAR LAB ORDERAB LES * FRUCTOSAMINE (07/26/2023 7:42 AM [facility]) Fructosamine 261 0 - 285 umol/L [facility] Comment: Published reference interval for apparently healthy subjects between age 20 and 60 is 205 - 285 umol/L and in a poorly controlled diabetic population is 228 - 563 umol/L with a mean of 396 umol/L. FASTING Blood BLOOD SPECIMEN / Unknown 07/26/2023 7:42 AM [facility] 07/26/2023 Narrative Resulting Agency Comment Lab Testing performed at: [facility] [address] ??[facility] [phone] Jen Cesar Eddy SHAFFER-WINDOWS AND DOORS INSTALLER LAB - CHEMISTR Y ORDERABLES Performing Organization Address City/[facility]/ZIP Co de Phone Number [facility] INSURANCE BILL [address] [place] [address] * MICROALB/CREAT RATIO URINE RANDOM PANEL (04/12/2023 1:25 PM CDT) Only the most recent of4 resultswithin the time period is included. Creatinine Urine 94.8 Not Estab. mg/dL [facility] INSURANCE BILL Microalbumin Urine 5.7 Not Estab. ug/mL [facility] INSURANCE BILL Microalbumin/Crea tinine Ratio 6 0 - 29 mg/g creat [facility] INSURANCE BILL Comment: ?Normal: ?0 - ??29 ?Moderately increased: 30 - 300 ?Severely increased: ? >300 Urine URINE SPECIMEN OBTAINED BY CLEAN CATCH PROCEDURE / Unknown 04/12/2023 1:25 PM CDT 04/12/2023 Narrative Resulting Agency Comment Lab Testing performed at: [facility] [place] [address] [facility] ??[facility] [phone] Jen YOOWINDOWS AND DOORS INSTALLER LAB - URINE CH EMISTRY ORDERABLES Performing Organization Address [facility]/ZIP Co de Phone Number [facility] INSURANCE BILL [address] [place] [address] * (ABNORMAL) URINALYSIS MICROSCOPIC ONLY REFLEXED (03/28/2023 3:23 PM CDT) Only the most recent of4 resultswithin the time period is included. WBC UA >30(A) 0 - 5 /hpf [facility] INSURANCE BILL RBC UA 0-2 0 - 2 /hpf [facility] INSURANCE BILL Epithelial Cells (non renal) 0-10 0 - 10 /hpf [facility] INSURANCE BILL Epithelial Cells (renal) NOT AVAILABLE [facility] INSURANCE BILL Comment:Result cannot be obt ained for this observation. Casts ua None seen None seen /lpf [facility] INSURANCE BILL Casts UA NOT AVAILABLE [facility] INSURANCE BILL Comment:Result cannot be obt ained for this observation. Crystals UA NOT AVAILABLE [facility] INSURANCE BILL Comment:Result cannot be obt ained for this observation. Crystals UA NOT AVAILABLE [facility] INSURANCE BILL Comment:Result cannot be obt ained for this observation. Mucus UA NOT AVAILABLE [facility] INSURANCE BILL Comment:Result cannot be obt ained for this observation. Bacteria UA Many(A) None seen/Few [facility] INSURANCE BILL Yeast UA NOT AVAILABLE [facility] INSURANCE BILL Comment:Result cannot be obt ained for this observation. Trichomonas UA NOT AVAILABLE [facility] INSURANCE BILL Comment:Result cannot be obt ained for this observation. Comment Urine NOT AVAILABLE [facility] INSURANCE BILL Comment:Result cannot be obt ained for this observation. 03/28/2023 3:23 PM CDT 03/28/2023 Narrative Resulting Agency Comment Lab Testing performed at: [email or web address] [id number] [facility] ??[facility] [phone] Jen Kam ASTRONAUT MISSION SPECIALIST-WINDOWS AND DOORS INSTALLER LAB - URINALYS IS ORDERABLES [facility] INSURANCE BILL [address] [place] [address] * (ABNORMAL) URINALYSIS W/MICROSCOPIC REFLEX TO CULTURE (03/28/2023 3:23 PM CDT) Only the most recent of3 resultswithin the time period is included. Specific Henrietta UA 1.012 1.005 - 1.030 [facility] INSURANCE BILL pH UA 6.0 5.0 - 7.5 [facility] INSURANCE BILL Color UA Yellow Yellow [facility] INSURANCE BILL Appearance Cloudy(A) Clear [facility] INSURANCE BILL Leukocyte UA 3+(A) Negative [facility] INSURANCE BILL Protein UA Trace Negative/Tr yousif [facility] INSURANCE BILL Glucose UA Negative Negative [facility] INSURANCE BILL Ketone UA Negative Negative [facility] INSURANCE BILL Occult Blood Urine Negative Negative [facility] INSURANCE BILL Bilirubin UA Negative Negative [facility] INSURANCE BILL Urobilinogen 0.2 0.2 - 1.0 mg/dL [facility] INSURANCE BILL Nitrite UA Negative Negative [facility] INSURANCE BILL Microscopic Examination Urine See below: [facility] INSURANCE BILL Comment:Microscopic was celia cated and was performed. Microscopic Examination Urine NOT AVAILABLE [facility] INSURANCE BILL Comment:Result cannot be obt ained for this observation. Urinalysis Reflex [facility] INSURANCE BILL Comment:This specimen has re flexed to a Urine Culture. Urine MID-STREAM URINE SPECIMEN / Unknown 03/28/2023 3:23 PM CDT 03/28/2023 Narrative Resulting Agency Comment Lab Testing performed at: [address] ??[facility] [phone] Jen Kam APRN-WINDOWS AND DOORS INSTALLER LAB - URINALYS IS ORDERABLES [facility] INSURANCE BILL [address] [place] [address] * (ABNORMAL) CULTURE URINE COMPREHENSIVE (03/28/2023 3:23 PM CDT) Only the most recent of11 resultswithin the time period is included. Urine Culture Comprehensive Final report(A) [facility] INSURANCE BILL Result 1 Klebsiella pneumoniae(A) [facility] INSURANCE BILL Comment: Greater than 100,000 colony forming units per mL Cefazolin <=4 ug/mL Cefazolin with an LYNNE <=16 predicts susceptibility to the oral agents cefaclor, cefdinir, cefpodoxime, cefprozil, cefuroxime, cephalexin, and loracarbef when used for therapy of uncomplicated urinary tract infections due to E. coli, Klebsiella pneumoniae, and Proteus mirabilis. Antimicrobial Susceptibility [facility] INSURANCE BILL Comment: ? S = Susceptible; I = Intermediate; R = Resistant ? P = Positive; N = Negative ?MICS are expressed in micrograms per mL ?? Antibiotic ? RSLT#1 ?RSLT#2 ?RSLT#3 ?RSLT#4 Amoxicillin/Clavulanic Acid ?S =4 Ampicillin ? R>=32 Cefepime ? S<=0.12 Ceftriaxone ?S<=0.25 Cefuroxime ? S =2 Ciprofloxacin ?S<=0.25 Ertapenem ?S<=0.12 Gentamicin ? S<=1 Imipenem ? S<=0.25 Levofloxacin ? S<=0.12 Meropenem ?S<=0.25 Nitrofurantoin ? I =64 Piperacillin/Tazobactam ?S<=4 Tetracycline ? S<=1 Tobramycin ? S<=1 Trimethoprim/Sulfa ? S<=20 03/28/2023 3:23 PM CDT 03/28/2023 Narrative Resulting Agency Comment Lab Testing performed at: [facility] [address] ??[facility] [phone] Jen Collierbell ASTRONAUT MISSION SPECIALIST-WINDOWS AND DOORS INSTALLER LAB - MICROBIO LOGY ORDERABLES [facility] INSURANCE BILL [address] [place] [address] * APHERESIS/TRANSFUSION ORDER (03/19/2023 2:50 PM CDT) Narrative 03/19/2023 2:50 PM CDT Ordered by an unspecified provider. Scanned Document NURSING - VITAL SIGN S AND ASSESSMENT * CARDIAC PROCEDURE ORDER (03/16/2023) Only the most recent of8 resultswithin the time period is included. Narrative 03/16/2023 Ordered by an unspecified provider. Scanned Document CARDIAC SERVICES ORD ERABLES * (ABNORMAL) CBC W/O DIFFERENTIAL (02/21/2023 8:01 PM CDT) Only the most recent of35 resultswithin the time period is included. WBC 9.4 3.5 - 10.5 10? 3 /uL 02/21/2023 8:52 PM [facility] RBC 3.09(L) 3.80 - 5.20 10? 6 /uL 02/21/2023 8:52 PM [facility] Hemoglobin 9.1(L) 12.0 - 15.6 g/dL 02/21/2023 8:52 PM [facility] Hematocrit 27.4(L) 35.0 - 45.0 % 02/21/2023 8:52 PM [facility] MCV 88.7 80.7 - 98.3 fL 02/21/2023 8:[address] [facility] MCH 29.4 26.7 - 34.0 pg 02/21/2023 8:52 PM [facility] MCHC 33.2 30.8 - 35.9 g/dL 02/21/2023 8:52 PM [facility] RDW-SD 45.8 36.0 - 50.0 fL 02/21/2023 8:[address] [facility] RDW-CV 14.4 11.2 - 14.8 % 02/21/2023 8:[address] [facility] Platelet Count 230 150 - 400 10? 3 /uL 02/21/2023 8:[address] [facility] MPV 9.7 9.4 - 12.9 fL 02/21/2023 8:[address] [facility] nRBC Absolute 0.00 0 10? 3 /uL 02/21/2023 8:[address] [facility] nRBC Auto 0.0 0 /100 WBC 02/21/2023 8:[address] [facility] Blood BLOOD SPECIMEN / Unknown Lab Venipuncture / Unknown 02/21/2023 8:01 PM CDT 02/21/2023 8:36 PM CDT Allen Dover MD LAB - HEMATOLOGY ORD ERABLES [address] [address], [facility] [phone] * PREPARE (CROSSMATCH) RBC UNIT(S), 6 Units (02/21/2023 1:17 AM CDT) Only the most recent of3 resultswithin the time period is included. Unit Description AS1 LR PRBC [facility] ABO O [facility] Unit [facility] BLOOD [facility] LAB Product Number R02 [facility] Donor # [id number] [facility] Unit Status released [facility] Product Code [id number] [facility] Blood Type Barcode 5100 [facility] Expiration Date S BLOOD BANK LAB Unit Description AS1 LR PRBC [facility] Unit ABO O [facility] Unit POS [facility] Product Number R02 [facility] Unit Donor # [id number] [facility] Unit Status released [facility] Product Code [id number] [facility] Blood Type Barcode 5100 [facility] Expiration Date S BLOOD BANK LAB Unit Description AS1 LR PRBC [facility] Unit ABO O [facility] Unit POS [facility] Product Number R02 [facility] Unit Donor # [id number] [facility] Unit Status released [facility] Product Code [id number] [facility] Blood Type Barcode 5100 [facility] Expiration Date [facility] Unit Description AS1 LR PRBC [facility] Unit ABO O [facility] Unit POS [facility] Product Number R02 [facility] Unit Donor # [id number] [facility] Unit Status released [facility] Product Code [id number] [facility] Blood Type Barcode 5100 [facility] Expiration Date [id number] S [facility] Unit Description AS1 LR PRBC [facility] Unit ABO O [facility] Unit POS [facility] Product Number R02 [facility] Unit Donor # [id number] [facility] Unit Status released [facility] Product Code [id number] [facility] Blood Type Barcode 5100 [facility] Expiration Date [id number] [facility] Unit Description -1 LR PRBC LV [facility] Unit ABO O [facility] Unit POS [facility] Product Number R52 [facility] Unit Donor # [id number] [facility] Unit Status released [facility] Product Code [id number] [facility] Blood Type Barcode 5100 [facility] Expiration Date [id number] [facility] Blood Bank BLOOD SPECIMEN / Unknown 02/17/2023 7:28 PM CDT Allen Dover MD LAB - BLOOD BANK ORD ERABLES [facility] [address] [place] [address], [facility] [phone] * PHOSPHORUS BLOOD (02/20/2023 1:05 AM CDT) Only the most recent of19 resultswithin the time period is included. Phosphorus 3.6 2.9 - 5.1 mg/dL 02/20/2023 2:[address] [facility] Blood BLOOD SPECIMEN / Unknown Lab Venipuncture / Unknown 02/20/2023 1:05 AM CDT 02/20/2023 1:29 AM CDT Mckenzie Ferrera ASTRONAUT MISSION SPECIALIST-WINDOWS AND DOORS INSTALLER LAB - CHEMISTRY O RDERABLES [address] [address], [facility] [phone] * MAGNESIUM BLOOD (02/20/2023 1:05 AM CDT) Only the most recent of33 resultswithin the time period is included. Magnesium 1.6 1.6 - 2.6 mg/dL 02/20/2023 2:[address] [facility] Blood BLOOD SPECIMEN / Unknown Lab Venipuncture / Unknown 02/20/2023 1:05 AM CDT 02/20/2023 1:29 AM CDT Mckenzie Ferrera ASTRONAUT MISSION SPECIALIST-WINDOWS AND DOORS INSTALLER LAB - CHEMISTRY O RDERABLES [address] [address], [place] [phone] * PREPARE FFP UNIT(S), 6 Units (02/17/2023 10:32 PM CDT) Only the most recent of2 resultswithin the time period is included. Unit Description Thawed Plasma 5D [facility] ABO A [facility] Rh NEG [facility] Product Number [id number] [facility] Donor # [id number] [facility] Unit Status released [facility] Product Code [id number] [facility] Blood Type Barcode 0600 [facility] Expiration Date [id number] [facility] Unit Description Thawed Plasma 5D [facility] Unit ABO A [facility] Unit NEG [facility] Product Number [id number] [facility] Unit Donor # [id number] [facility] Unit Status released [facility] Product Code [id number] [facility] Blood Type Barcode 0600 [facility] Expiration Date [id number] [facility] Unit Description Thawed Plasma 5D [facility] Unit ABO A [facility] Unit NEG [facility] Product Number [id number] [facility] Unit Donor # [id number] [facility] Unit Status released [facility] Product Code [id number] [facility] Blood Type Barcode 0600 [facility] Expiration Date [id number] [facility] Unit Description Thawed Plasma 5D [facility] Unit ABO AB [facility] Unit POS [facility] Product Number [id number] [facility] Unit Donor # [id number] [facility] Unit Status released [facility] Product Code [id number] [facility] Blood Type Barcode 8400 [facility] Expiration Date [id number] [facility] Unit Description Thawed Plasma 5D [facility] Unit ABO AB [facility] Unit NEG [facility] Product Number [id number] [facility] Unit Donor # [id number] [facility] Unit Status released [facility] Product Code [id number] [facility] Blood Type Barcode 2800 [facility] Expiration Date [id number] [facility] Unit Description Thawed Plasma 5D [facility] Unit ABO AB [facility] Unit POS [facility] Product Number [id number] [facility] Unit Donor # [id number] [facility] Unit Status released [facility] Product Code [id number] [facility] Blood Type Barcode 8400 [facility] Expiration Date [id number] [facility] Blood Bank BLOOD SPECIMEN / Unknown 02/17/2023 7:28 PM CDT Allen Dover MD LAB - BLOOD BANK ORD ERABLES [facility] [address] [place] [address], [facility] [phone] * (ABNORMAL) BLOOD GAS+COOX+LYTES+METAB ARTERIAL POCT (02/17/2023 10:25 PM CDT) Only the most recent of2 resultswithin the time period is included. pH Arterial 7.35 7.35 - 7.45 pH 02/17/2023 10:25 PM [facility] pO2 Arterial 233(H) 80 - 100 mmHg 02/17/2023 10:25 PM [facility] pCO2 Arterial 42 35 - 45 mmHg 10:25 PM [facility] HCO3 Arterial 23.2 20.0 - 30.0 mmol/L 02/17/2023 10:25 PM [facility] BE Arterial -2.3(L) -2.0 - 2.0 mmol/L 02/17/2023 10:25 PM [facility] Oxyhemoglobin Arterial 97.7 % 02/17/2023 10:25 PM [facility] Dexoyhemoglobin (HHB) % <1.0 % 02/17/2023 10:25 PM [facility] Methemoglobin 0.8 0.0 - 2.0 % 02/17/2023 10:25 PM [facility] Carboxyhemoglobin 0.6 0.0 - 2.0 % 2022 10:25 PM [facility] Comment:Carboxyhemoglobin No rmal Concentration: Non-smokers: 0-2%; Smokers: 0- 9%; Toxic: >20% O2 Content Arterial 12.4 Interpret within clinical context ml/dL 02/17/2023 10:25 PM [facility] Hemoglobin by COOX 8.6(L) 12.0 - 15.6 g/dL 02/17/2023 10:[address] [facility] O2 Saturation Arterial 99 90 - 100 % 02/17/2023 10:[address] [facility] Sodium Whole Blood 138 135 - 145 mmol/L 02/17/2023 10:[address] [facility] Potassium Whole Blood 4.1 3.5 - 5.5 mmol/L 02/17/2023 10:[address] [facility] Chloride WB 106 78 - 107 mmol/L 02/17/2023 10:[address] [facility] Calcium Ionized 1.26 mmol/L 10:[address] [facility] Ionized Calcium pH Adjusted 1.23 1.19 - 1.34 mmol/L 02/17/2023 10:[address] [facility] Anion Gap (AG) Arterial 13 8 - 18 mmol/L 02/17/2023 10:[address] [facility] Glucose WB 169(H) 70 - 115 mg/dL 02/17/2023 10:[address] [facility] Lactic Acid Whole Blood 1.9 <=2.0 mmol/L 02/17/2023 10:25 PM [facility] Blood, arterial ARTERIAL BLOOD SPECIMEN / Unknown 02/17/2023 10:25 PM CDT 02/17/2023 10:26 PM CDT Allen Dover MD LAB - POINT OF CARE ORDERABLES [facility] [address] [place] [address], [facility] [phone] * PREPARE PLATELET PHERESIS UNIT(S), 1 Units (02/17/2023 10:23 PM CDT) Only the most recent of2 resultswithin the time period is included. Unit Description LR PLT Phere B7 [facility] Unit ABO A [facility] Unit Rh POS [facility] Product Number [id number] [facility] Unit Donor # [id number] [facility] Unit Status released [facility] Product Code [id number] [facility] Blood Type Barcode 4190 [facility] Expiration Date [id number] [facility] Blood Bank BLOOD SPECIMEN / Unknown 02/17/2023 7:28 PM CDT Allen Dover MD LAB - BLOOD BANK ORD ERABLES [facility] [address] [place] [address], [facility] [phone] * CENTRAL LINE PERFORMABLE (02/17/2023 10:12 PM CDT) Narrative Lupe Puentes MD - 02/17/2023 10:12 PM CDT Lupe Puentes MD ? 02/17/2023 10:14 PM Central Line Placement Procedure Note/LDA ?? Patient Location: OR. Procedure Section: ?? Indications: IV access and CVP monitoring. AN Patient sedated: general anesthesia. Patient Position: ??supine Site: ??internal jugular Skin Prep: Chloraprep. Local Types (manual): 2% lido. Site Identification: ultrasound guided with sterile sleeve and gel. Seldinger Technique Used? ??Yes Wire Verification: verified by ultrasound. Intravenous Verification: verified by ultrasound and all ports aspirated/flushed easily. Lumens: ??triple lumen Size (Fr): 7. Length (cm): 16. Secured at (cm): 16. Port Insertion: guidewire removed intact, all ports aspirated/flushed, sutured in place, biopatch applied and dressing applied. Number of Attempts: 1. Procedure Tolerance: ??performed while patient under general anesthesia Maximal Sterile Barriers: ??Cap, mask, sterile gloves, a large sterile sheet, hand hygiene, and chlorhexidine for cutaneous antisepsis (6030F) Procedure Start Time: 02/17/2023 9:40 PM. Staff Section ? Anesthesia Provider: John Quintanilla MD ? Provider #1: Lupe Puentes MD, Performed the procedure. John May MD GENERAL ANESTHESI A ORDERABLES * ETT LINE PERFORMABLE (02/17/2023 10:11 PM CDT) Narrative Lupe Puentes MD - 02/17/2023 10:11 PM CDT Lupe Puentes MD ? 02/17/2023 10:12 PM Endotracheal Tube Placement: ? Patient Location: OR. Intubation Event Date/Time: ??02/17/2023 9:17 PM Procedure: intubation (38880). Procedure Section: ?? Sedation: under general anesthesia. Indications for Airway Management: ??anesthesia Procedure pretreatments used? ??No Induction: standard IV Patient Position: ??sniffing Mask Ventilation: easy. Blade Type: Video Blade Size: 3 Laryngoscopy View: grade 1 (full cords) Intubation Adjuncts: stylet and video laryngoscope Tube: endotracheal tube Placement: oral Tube type: cuff - inflated Tube Size (MM): 7 Depth of Insertion (CM): 23 Measured From: lips Cuff volume (mL): ??10 Cuff Inflated With: air Number of Attempts: 1. Placement Verified By: direct visualization, bilateral breath sounds, chest auscultation and CO2 monitor Tube secured with: ??adhesive tape. Dentition unchanged? ??Yes Difficult Airway? ??No. Procedure Start Time: 02/17/2023 9:17 PM. Staff Section ? Anesthesia Provider: John Quintanilla MD ? Provider #1: Eddy Cuellar DO, Performed the procedure. John May MD GENERAL ANESTHESI A ORDERABLES * ARTERIAL LINE PERFORMABLE (02/17/2023 10:11 PM CDT) Narrative Lupe Puentes MD - 02/17/2023 10:11 PM CDT Lupe Puentes MD ? 02/17/2023 10:49 PM Arterial Line Placement Procedure Note Patient Location: OR. Procedure: Arterial Line (84125). Procedure Section ?? Indications: continuous blood pressure monitoring and blood sampling needed. Consent: informed consent was obtained for the procedure. Skin Prep: Chloraprep. Orientation: Right. Site: radial. Site Identification: ultrasound guided with sterile sleeve and gel. Sterile Technique: cap and mask. Gauge: 20. Catheter Length: 1 and 3/4 inch. Catheter Type: Arrow. Seldinger Technique Used? ??Yes Number of Attempts: 1. Line Secured with: Tegaderm. Procedure Tolerance: performed while patient under general anesthesia. Local Anesthetic Used? ??No Staff Section ? Anesthesia Provider: Lupe Peuntes MD, Performed the procedure John May MD GENERAL ANESTHESI A ORDERABLES * TRANSFUSE RED BLOOD CELL LEUKOREDUCED UNIT(S) (02/17/2023 9:58 PM CDT) John May MD NURSING - BLOOD P GINA TRANSFUSION * BLOOD GAS ART+LYTES+METAB+COOX POC NOTIF (02/17/2023 9:47 PM CDT) Comment Notification Label Only - See Separate Report 02/17/2023 11:[address] [facility] Other MISCELLANEOUS SAMPLES / Unknown 02/17/2023 9:47 PM CDT 02/17/2023 9:50 PM CDT John May MD LAB - BLOOD GASES ORDERABLES Performing Organization Address [facility] Co de Phone Number [address] [address], [facility] [phone] * TEG 6 GLOBAL HEMOSTASIS W/ LYSIS (02/17/2023 7:21 PM CDT) Citrated Kaolin R (Reaction Time) 5.5 4.6 - 9.1 min 02/17/2023 8:[address] [facility] Citrated Kaolin LY30 (Lysis) 0.7 0.0 - 2.6 % 02/17/2023 8:[address] [facility] Citrated Functional Fibrinogen MA (Max Amplitude) 21.9 15.0 - 32.0 mm 02/17/2023 8:[address] [facility] Citrated RapidTEG MA (Max Amplitude) 65.3 52.0 - 70.0 mm 02/17/2023 8:[address] [facility] Blood BLOOD SPECIMEN / Unknown Venipuncture / Unknown 02/17/2023 7:21 PM CDT 02/17/2023 7:29 PM CDT Allen Dover MD LAB - HEMATOLOGY ORD ERABLES [facility] [address] [place] [address], [facility] [phone] * (ABNORMAL) TEG 6S PLATELET MAPPING (02/17/2023 7:21 PM CDT) TEGPLM (Max Amplitude) Koalin 66.1 53.0 - 68.0 mm 02/17/2023 8:[address] [facility] TEGPLM (Max Amplitude) ACTF 11.9 2.0 - 19.0 mm 02/17/2023 8:[address] [facility] TEGPLM (Max Amplitude) ADP 12.8(L) 45.0 - 69.0 mm 02/17/2023 8:25 PM [facility] Comment:ADP MA below normal range. Inhibition present. TEGPLM (Max Amplitude) AA 16.0(L) 51.0 - 71.0 mm 02/17/2023 8:[address] [facility] Comment:AA MA below normal r schuyler. Inhibition present. TEGPLM %Inhibition ADP 98.3(H) 0.0 - 17.0 % 02/17/2023 8:[address] [facility] TEGPLM %Inhibition AA 92.4(H) 0.0 - 11.0 % 02/17/2023 8:[address] [facility] TEGPLM %Aggregation ADP 1.7(L) 83.0 - 100.0 % 02/17/2023 8:[address] [facility] TEGPLM % Aggregation AA 7.6(L) 89.0 - 100.0 % 02/17/2023 8:[address] [facility] Blood BLOOD SPECIMEN / Unknown Venipuncture / Unknown 02/17/2023 7:21 PM CDT 02/17/2023 7:29 PM CDT Allen Dover MD LAB - HEMATOLOGY ORD ERABLES [facility] [address] [place] [address], [facility] [phone] * PTT [facility] (02/17/2023 7:21 PM CDT) Only the most recent of5 resultswithin the time period is included. [facility] APTT 27.2 23.0 - 38.4 Seconds 02/17/2023 7:48 PM [facility] Comment:Suggested therapeuti c range for full dose I.V. unfractionated heparin therapy for venous thromboembolism is 71 to 109 seconds. Blood BLOOD SPECIMEN / Unknown Venipuncture / Unknown 02/17/2023 7:21 PM CDT 02/17/2023 7:26 PM CDT Allen Dover MD LAB - COAGULATION OR DERABLES [facility] [address] [place] [address], [facility] [phone] * (ABNORMAL) DIFFERENTIAL MANUAL (02/17/2023 7:21 PM CDT) Only the most recent of3 resultswithin the time period is included. [facility] WBC (corrected for NRBC) 33.4 10? 3 /uL 02/17/2023 9:06 PM [facility] Total Cell Count 100 02/18/20 23 9:06 PM [facility] Neutrophils Absolute Manual 30.06(H) 1.60 - 7.00 10? 3 /uL 02/17/2023 9:06 PM [facility] Comment:(BANDS+SEGS) x WBC = NEUT # (ANC) Lymphocyte Absolute Manual 2.67 1.10 - 3.90 10? 3 /uL 02/17/2023 9:06 PM [facility] Monocytes Absolute Manual 0.67 0.26 - 1.07 10? 3 /uL 02/17/2023 9:06 PM [facility] Band % Manual 2 0 - 10 % 02/17/2023 9:06 PM [facility] Neutrophil % Manual 88(H) 35 - 70 % 02/17/2023 9:06 PM [facility] Lymphocyte % Manual 8(L) 20 - 43 % 02/17/2023 9:[address] [facility] Monocytes % Manual 2(L) 5 - 13 % 02/17/2023 9:06 PM [facility] Platelet Estimate Adequate Adequate 02/17/2023 9:06 PM [facility] Anisocytosis 1+(A) None 02/17/2023 9:06 PM [facility] Schistocytes Rare(A) None 02/17/2023 9:06 PM [facility] Ovalocytes Occasional( A) None 02/17/2023 9:[address] [facility] Large Platelet Count Occasional( A) None 02/17/2023 9:06 PM [facility] Comment Platelet Platelet clumped on the smear but appear adequate. 02/17/2023 9:06 PM [facility] Blood BLOOD SPECIMEN / Unknown Venipuncture / Unknown 02/17/2023 7:21 PM CDT 02/17/2023 7:26 PM CDT Allen Dover MD LAB - HEMATOLOGY ORD [place] [address] [address], [place] [phone] * (ABNORMAL) CK BLOOD (02/17/2023 7:21 PM CDT) Only the most recent of4 resultswithin the time period is included. CK Total 251(H) 30 - 200 U/L 02/17/2023 7:[address] [facility] Blood BLOOD SPECIMEN / Unknown Venipuncture / Unknown 02/17/2023 7:21 PM CDT 02/17/2023 7:26 PM CDT Allen Dover MD LAB - CHEMISTRY ORDE [place] [address] [address], [place] [phone] * PROC EKG IN CLINIC (11/17/2022) Only the most recent of2 resultswithin the time period is included. Narrative Jen Kam, ASTRONAUT MISSION SPECIALIST-WINDOWS AND DOORS INSTALLER - 11/17/2022 No acute changes No change in ekg from August 2022 Jen Cesar Eddy ASTRONAUT MISSION SPECIALIST-WINDOWS AND DOORS INSTALLER ECG ORDERABLES * UT MSR PVR U&/BLADD PRATIBHA US NON (08/31/2022 9:53 AM [facility]) Narrative Stephanie Lott - 08/31/2022 9:53 AM [facility] Stephanie Lott ? 08/31/2022 ??9:59 AM PVR = ??15 mL ? Lana Rdz ASTRONAUT MISSION SPECIALIST-WINDOWS AND DOORS INSTALLER PROCEDURE/MIN OR SURGICAL ORDERABLES * CARDIAC EKG ORDER (08/30/2022 9:01 AM [facility]) Only the most recent of7 resultswithin the time period is included. Narrative 08/30/2022 9:01 AM [facility] Ordered by an unspecified provider. Scanned Document CARDIAC SERVICES ORD ERABLES * (ABNORMAL) BLOOD GASES ART + COOX PANEL (08/23/2022 12:01 AM [facility]) Only the most recent of7 resultswithin the time period is included. pH Arterial 7.42 7.35 - 7.45 pH 08/23/2022 12:[address] [facility] pO2 Arterial 109(H) 80 - 100 mmHg 08/23/2022 12:11 AM [facility] pCO2 Arterial 38 35 - 45 mmHg 3 12:11 AM [facility] HCO3 Arterial 25 20 - 30 mmol/l 08/23/2022 12:11 AM [facility] BE Arterial 0.2 -2.0 - 2.0 mmol/L 08/23/2022 12:11 AM [facility] Oxyhemoglobin Arterial 97.4 % 08/23/2022 12:11 AM [facility] Dexoyhemoglobin (HHB) % 0.5 % 08/23/2022 12:11 AM [facility] Methemoglobin <0.8 0.0 - 2.0 % 08/23/2022 12:11 AM [facility] Carboxyhemoglobin 1.6 0.0 - 2.0 % 2022 12:11 AM [facility] O2 Content Arterial 13.9 Interpret within clinical context ml/dL 08/23/2022 12:11 AM [facility] Hemoglobin by COOX 10.0(L) 12.0 - 15.6 g/dL 08/23/2022 12:11 AM [facility] O2 Saturation Arterial 100 90 - 100 % 08/23/2022 12:11 AM [facility] FI O2 Arterial 28.0 % 08/23/2022 12:11 AM [facility] Blood, arterial ARTERIAL BLOOD SPECIMEN / Unknown Line Draw / Unknown 08/23/2022 12:01 AM [facility] 08/23/2022 12:[address] [facility] - 08/23/2022 12:11 AM [facility] Carboxyhemoglobin Normal Concentration: Non-smokers: 0-2%; Smokers: 0-9%; Toxic: >20% Yudith Rodriguez MD LAB - BLOOD GASES O RDERABLES [address] [address], [facility] [phone] * XR ABDOMEN KUB PORTABLE (08/22/2022 12:23 PM [facility]) Only the most recent of5 resultswithin the time period is included. Anatomical Region Laterality Modality Abdomen Radiographic Natasha ging 08/22/2022 12:4 5 PM [facility] Impressions 08/22/2022 12:52 PM [facility] IMPRESSION: There is overall paucity of bowel gas. There is instrumented fixation of the lower lumbar spine. A Forrest catheter is present. Cholecystectomy clips are present. > Interpreting Provider: Betito Han MD on 08/22/2022 12:52 PM Narrative 08/22/2022 12:52 PM [facility] PROCEDURE: ??XR ABDOMEN KUB PORTABLE, DATE/TIME OF EXAM: ??08/22/2022 12:24 PM, LOCATION ??[facility] INDICATION: I65.21: Carotid stenosis, right ADDITIONAL CLINICAL INFORMATION: Ordering Provider Reason For Exam: ??rule out sbo COMPARISON: 08/20/2022. Procedure Note Betito Han MD - 08/22/2022 PROCEDURE: XR ABDOMEN KUB PORTABLE, DATE/TIME OF EXAM: 08/22/2022 12:24 PM, LOCATION [facility] INDICATION: I65.21: Carotid stenosis, right ADDITIONAL CLINICAL INFORMATION: Ordering Provider Reason For Exam: rule out sbo COMPARISON: 08/20/2022. IMPRESSION: There is overall paucity of bowel gas. There is instrumented fixation of the lower lumbar spine. A Forrest catheter is present. Cholecystectomyclips are present. > Interpreting Provider: Betito Han MD on 08/22/2022 12:52 PM Yudith Rodriguez MD DIAGNOSTIC IMAGING ORDERABLES * ACT LR - POCT ([facility]) (08/18/2022 2:41 PM [facility]) ACT LR 364 See result comments sec 08/18/2022 3:[address] [facility] Blood BLOOD SPECIMEN / Unknown 08/18/2022 2:41 PM [facility] 08/18/2022 3:08 [address] [facility] [address] [facility] - 08/18/2022 3:08 PM [facility] ACT-LR [employer] ranges are: Cardiac laborer marine terminal = 200-300 seconds Sheath pull = ACT less than 170 seconds EPS lab = 200-240 seconds Sheath pull = ACT less than 140 seconds Radiology : CT/Angio lab = 200-300 seconds Sheath pull = ACT less than 200 seconds Expected range of normal volunteers: ACT-LR = 113-149 seconds Expected range of a Non-heparin patients: ACT-LR = 89-169 seconds From established ranges from the company manual Yudith Rodriguez MD LAB - COAGULATION O RDERABLES [facility] [address] [place] [address], [place] [phone] * PATHOLOGY TISSUE (08/18/2022 1:29 PM [facility]) Only the most recent of3 resultswithin the time period is included. Case Report Surgical Pathology Report ? Case: [id number] ? Authorizing Provider: ??Yudith Rodriguez MD ? Collected: ? 08/18/2022 01:29 PM ? [facility]ing [facility]: ? [facility] ?Received: ?08/18/2022 03:27 PM ? Pathologist: ? Julissa Ferreira MD ? Specimens: ?? A) - Neck, RIGHT NECK LYMPH NODE ? B) - Carotid Artery, RIGHT NECK CAROTID PLAQUE ? 08/23/2022 1:29 PM [facility] Final Diagnosis Lymph node, right neck, excision (A): - No histopathologic abnormality (1 node) Artery, right carotid, plaque, endarterectomy (B): - Calcified plaque 08/23/2022 1:29 PM [facility] Microscopic Description and Comment Microscopic examination substantiates the final diagnosis. 08/23/2022 1:29 PM [facility] Clinical History The patient is a 67-year-old woman who presented with right carotid artery stenosis. Operative procedure: Right carotid endarterectomy with cerebral oximetry. 08/23/2022 1:29 PM [facility] Gross Description The requisition and specimen (s) are identified with the patient's name, Ivonne Vera. Received in formalin, specimen A , is a 0.8 x 0.6 x 0.3 cm pink-johnson potential lymph node, bisected and entirely submitted in cassette A1. Received in formalin, specimen B consists of a 2.3 x 0.6 x 0.4 cm yellow-johnson, calcified plaque. Farm Equipment Operator section is submitted in cassette B1 after period of decalcification. AR 08/23/2022 1:29 PM [facility] Disclaimer The performance characteristics of all immunohistochemical and indirect immunofluorescence stains (if any) cited in this report were determined by the Histopathology Laboratory of [facility]. Some of these tests were developed by our own laboratory and have not been cleared or approved by the US Food and Drug Administration. The FDA does not require this test to go through premarket FDA review. These tests are used for clinical purposes. They should not be regarded as investigational or for research. This laboratory is certified under the Clinical Laboratory Improvement Amendments (CLIA) as qualified to perform high complexity clinical laboratory testing. This case has been personally reviewed and interpreted by the attending (teaching) pathologist. 08/23/2022 1:29 PM [facility] Embedded Images 08/23/2022 1:29 PM [facility] Resection without Tumor ENTIRE NECK / Unknown 08/18/2022 1:29 PM [facility] 08/18/2022 3:27 PM [facility] Comment:Pre-op diagnosis: CAROTID STENOSIS Resection without Tumor CAROTID ARTERY STRUCTURE / Unknown 08/18/2022 2:44 PM [facility] 08/18/2022 3:27 PM [facility] Comment:Pre-op diagnosis: CAROTID STENOSIS Yudith Rodriguez MD LAB - PATHOLOGY/CYT OLOGY ORDERABLES [facility] [address] [place] [address], [facility] [phone] * ETT LINE PERFORMABLE (08/18/2022 12:56 PM [facility]) Narrative Anisha العراقي Anes Asst - 08/18/2022 12:56 PM [facility] Anisha العراقي Anes Asst ? 08/18/2022 ??1:34 PM Endotracheal Tube Placement: ? Patient Location: OR. Intubation Event Date/Time: ??08/18/2022 12:56 PM Procedure: intubation (62084). Procedure Section: ?? Sedation: under general anesthesia. Indications for Airway Management: ??anesthesia Induction: standard IV Patient Position: ??sniffing Mask Ventilation: easy. Blade Type: Ferrera Blade Size: 2 Laryngoscopy View: grade 1 (full cords) Tube: endotracheal tube Placement: oral Tube type: cuff - inflated Tube Size (MM): 7 Depth of Insertion (CM): 22 Measured From: teeth Cuff volume (mL): ??8 Cuff inflation pressure (CM H20): ??20 Cuff Inflated With: air Number of Attempts: 1. Placement Verified By: direct visualization, bilateral breath sounds, chest auscultation and CO2 monitor Tube secured with: ??adhesive tape. Dentition unchanged? ??Yes Difficult Airway? ??No. Procedure Start Time: 08/18/2022 12:56 PM. Procedure End Time: 08/18/2022 12:57 PM. Procedure Total Time: 1 ??minutes. Staff Section ? Anesthesia Provider: Anisha العراقي Anes Asst, Performed the procedure ? Provider #1: Wolf Dorado MD. Additional Comments: ETT placed by Nieters DORCAS. Wolf Dorado MD GENERAL ANESTHESIA O RDERABLES * POTASSIUM WHOLE BLD (08/18/2022 9:13 AM [facility]) Potassium Whole Blood 4.0 3.5 - 5.5 mmol/L 08/18/2022 9:22 AM [facility] Blood WHOLE BLOOD SPECIMEN / Unknown Venipuncture / Unknown 08/18/2022 9:13 AM [facility] 08/18/2022 9:19 AM [facility] Yudith Rodriguez MD LAB - CHEMISTRY ORD ERABLES [facility] [address] [place] [address], [facility] [phone] * ECHO STRESS W DOBUTAMINE (07/13/2022 9:57 AM [facility]) Only the most recent of2 resultswithin the time period is included. Anatomical Region Laterality Modality Chest Echo 07/13/2022 8:21 AM [facility] Narrative Procedure Note Erich Huggins MD - 07/13/2022 Erich Huggins MD ECHOCARDIOGRAPHY RAD IANT * HEMOGLOBIN A1C - POINT OF CARE (AMB) [facility] (06/15/2022) Only the most recent of9 resultswithin the time period is included. Hemoglobin A1c POCT 6.5 % BLOOD SPECIMEN / Unknown 06/15/2022 Jen Kam ASTRONAUT MISSION SPECIALIST-WINDOWS AND DOORS INSTALLER LAB - POINT OF CARE ORDERABLES * Visual Cantrell (04/25/2022 8:38 AM CDT) Anatomical Region Laterality Modality Other 04/25/2022 8:38 AM CDT Mery Patel MD OPHTHALMOLOGY SERVIC ES ORDERABLES * OCT (04/25/2022 7:56 AM CDT) Anatomical Region Laterality Modality Other 04/25/2022 7:56 AM CDT Mery Patel MD OPHTHALMOLOGY SERVIC ES ORDERABLES * TROPONIN I (04/12/2022 1:38 PM CDT) Only the most recent of7 resultswithin the time period is included. Troponin I 0.014 <0.032 ng/mL 04/12/2022 2:[address] [facility] Blood BLOOD SPECIMEN / Unknown Venipuncture / Unknown 04/12/2022 1:38 PM CDT 04/12/2022 1:44 PM CDT Erich Diaz MD LAB - CHEMISTRY [facility] Organization Address City/State/ZIP Co de Phone Number [facility] [address] [place] [address], [facility] [phone] * MRI BRAIN WO CONTRAST (04/12/2022 11:50 AM CDT) Only the most recent of2 resultswithin the time period is included. Anatomical Region Laterality Modality Head Magnetic Resonan ce 04/12/2022 12:3 6 PM CDT Impressions 04/12/2022 12:43 PM CDT IMPRESSION: No acute intracranial abnormality. > Interpreting Provider: Astrid Coleman MD on 04/12/2022 12:43 PM Narrative 04/12/2022 12:43 PM CDT PROCEDURE: ??MRI BRAIN WO CONTRAST, DATE/TIME OF EXAM: ??04/12/2022 11:50 AM, LOCATION ??[facility] INDICATION: R29.810: Facial droop ADDITIONAL CLINICAL INFORMATION: Ordering Provider Reason For Exam: ??concern for stroke COMPARISON: CT head from 04/12/2022 was reviewed. EXAMINATION: MRI of the brain without intravenous contrast TECHNIQUE: MRI of the brain was performed without intravenous contrast according to standard protocol. FINDINGS: Moderate chronic microvascular ischemic changes are seen. There is mild generalized parenchymal volume loss. There is no acute infarction or MR evidence of acute intracranial hemorrhage. ??There is no mass effect, hydrocephalus or extra-axial fluid collection. The sella is within normal limits. ??Flow voids of major intracranial vessels are noted. The paranasal sinuses and tympanomastoid cavities are aerated. The orbits are unremarkable. There is partial visualization of cervical fixation hardware. Procedure Note Astrid Coleman MD - 04/12/2022 PROCEDURE: MRI BRAIN WO CONTRAST, DATE/TIME OF EXAM: 04/12/2022 11:50AM, LOCATION [facility] INDICATION: R29.810: Facial droop ADDITIONAL CLINICAL INFORMATION: Ordering Provider Reason For Exam: concern for stroke COMPARISON: CT head from 04/12/2022 was reviewed. EXAMINATION: MRI of the brain without intravenous contrast TECHNIQUE: MRI of the brain was performed without intravenous contrast according to standard protocol. FINDINGS: Moderate chronic microvascular ischemic changes are seen. There is mild generalized parenchymal volume loss. There is no acute infarction or MR evidence of acute intracranial hemorrhage. There is no mass effect, hydrocephalus or extra-axial fluid collection. The sella is within normal limits. Flow voids of major intracranial vessels are noted. The paranasal sinuses and tympanomastoid cavities are aerated. Theorbits are unremarkable. There is partial visualization of cervical fixation hardware. IMPRESSION: No acute intracranial abnormality. > Interpreting Provider: Astrid Coleman MD on 04/12/2022 12:43 PM Erich Diaz MD MR ORDERABLES * CT ANGIO BRAIN NECK STROKE (04/12/2022 9:56 AM CDT) Anatomical Region Laterality Modality Head Computed Tomogra phy 04/12/2022 10:0 5 AM CDT Impressions 04/12/2022 10:28 AM CDT IMPRESSION: 1. Patent dural venous sinuses. 2. Patent intracranial arteries without aneurysm, AVM, or critical stenosis. 3. Focal right ICA origin stenosis measures 80%, due to calcified and noncalcified plaque. No hemodynamically significant stenosis is seen in the remaining extracranial arteries. The findings were discussed by Dr. Duncan with Dr. Valentine at 1009 hours on 04/12/2022. > Interpreting Provider: Elizabeth Duncan MD on 04/12/2022 10:28 AM Narrative 04/12/2022 10:28 AM CDT PROCEDURE: ??CT ANGIO BRAIN NECK STROKE, DATE/TIME OF EXAM: ??04/12/2022 9:56 AM, LOCATION ??[facility] INDICATION: R29.810: Facial droop ADDITIONAL CLINICAL INFORMATION: Ordering Provider Reason For Exam: Technologist Note: Additional: COMPARISON: Noncontrast brain CT from the same day. TECHNIQUE: CT angiography of the brain and neck was performed without IV contrast followed by IV contrast, including 3D post processing CTA image reconstruction. ??Stenosis measurements are based on NASCET criteria. Viz.AI was used for navdeep vessel occlusion detection. CT dose reduction technique was used, including Automated Exposure Control. CONTRAST: ?? IOPAMIDOL 76 % IV SOLN:75 mL FINDINGS: CTA HEAD: The internal carotid arteries are patent from the superior cervical to the supraclinoid portions. Mild calcified plaque is present in the bilateral carotid siphons without high-grade stenosis. The bilateral A1, A2, M1, M2 segments are patent. A normal caliber anterior communicating artery is present. In the posterior circulation, the bilateral V4 segments are patent. ??The bilateral PICAs are patent. The basilar artery is patent throughout its course to the terminus. There is normal contrast opacification in the superior cerebellar and posterior cerebral arteries. Posterior communicating arteries are not seen. The dural venous sinuses are patent. CTA NECK: The aortic arch is normal. The origins of the great vessels are widely patent. Right carotid artery: The common, internal, and external carotid arteries are patent. Calcified and noncalcified plaque is present at the carotid right carotid bifurcation resulting in ICA origin stenosis measuring 80% (image 2022, series 9). Left carotid artery: The common, internal, and external carotid arteries are patent. No hemodynamically significant stenosis is present. Mild calcified plaque is present at the carotid bifurcation. Vertebral arteries: The vertebral artery origins are patent. The vertebral arteries are codominant. The vertebral arteries are patent in their remaining cervical courses without hemodynamically significant stenosis. Other: The visualized upper lungs are clear. The airway is patent. Anterior fusion changes are present in the cervical spine from C3 through C7. No acute abnormality is appreciated in the remaining soft tissues of the neck. Procedure Note Elizabeth Duncan MD - 04/12/2022 PROCEDURE: CT ANGIO BRAIN NECK STROKE, DATE/TIME OF EXAM: 29:56 AM, LOCATION [facility] INDICATION: R29.810: Facial droop ADDITIONAL CLINICAL INFORMATION: Ordering Provider Reason For Exam: Technologist Note: Additional: COMPARISON: Noncontrast brain CT from the same day. TECHNIQUE: CT angiography of the brain and neck was performed without IV contrast followed by IV contrast, including 3D post processing CTA image reconstruction. Stenosis measurements are based on NASCET criteria. Viz.AI was used for navdeep vessel occlusion detection. CT dose reduction technique was used, including Automated ExposureControl. CONTRAST: IOPAMIDOL 76 % IV SOLN:75 mL FINDINGS: CTA HEAD: The internal carotid arteries are patent from the superior cervical tothe supraclinoid portions. Mild calcified plaque is present in the bilateral carotid siphons without high-grade stenosis. The bilateral A1, A2, M1,M2 segments are patent. A normal caliber anterior communicating artery is present. In the posterior circulation, the bilateral V4 segments are patent. The bilateral PICAs are patent. The basilar artery is patent throughout its course to the terminus. There is normal contrast opacification in the superior cerebellar and posterior cerebral arteries. Posterior communicating arteries are not seen. The dural venous sinuses are patent. CTA NECK: The aortic arch is normal. The origins of the great vessels are widely patent. Right carotid artery: The common, internal, and external carotid arteries are patent.Calcified and noncalcified plaque is present at the carotid right carotidbifurcation resulting in ICA origin stenosis measuring 80% (image 2021, series 9). Left carotid artery: The common, internal, and external carotid arteries are patent. No hemodynamically significant stenosis is present. Mild calcified plaqueis present at the carotid bifurcation. Vertebral arteries: The vertebral artery origins are patent. The vertebral arteries are codominant. The vertebral arteries are patent in their remainingcervical courses without hemodynamically significant stenosis. Other: The visualized upper lungs are clear. The airway is patent. Anteriorfusion changes are present in the cervical spine from C3 through C7. No acute abnormality is appreciated in the remaining soft tissues of the neck. IMPRESSION: 1. Patent dural venous sinuses. 2. Patent intracranial arteries without aneurysm, AVM, or critical stenosis. 3. Focal right ICA origin stenosis measures 80%, due to calcified and noncalcified plaque. No hemodynamically significant stenosis is seen inthe remaining extracranial arteries. The findings were discussed by Dr. Duncan with Dr. Valentine at 1009hours on 04/12/2022. > Interpreting Provider: Elizabeth Duncan MD on 04/12/2022 10:28 AM Erich Diaz MD CT ORDERABLES * (ABNORMAL) CREATININE - POCT INTERFACED (04/12/2022 9:42 AM CDT) Only the most recent of3 resultswithin the time period is included. Creatinine POCT 1.13 0.30 - 1.30 mg/dL 04/13/2022 10:[address] [facility] eGFR 54(L) >90 mL/min/1.7 3 m2 04/13/2022 10:[address] [facility] Blood BLOOD SPECIMEN / Unknown 04/12/2022 9:42 AM CDT 04/13/2022 10:05 AM CDT Erich Diaz MD LAB - POINT OF CARE ORDERABLES [address] [address], [facility] [phone] * INR WHOLE BLOOD - POINT OF CARE (IP) STROKE (04/12/2022 9:41 AM CDT) INR 1.2 0.9 - 1.2 04/13/2022 10:[address] [facility] Device [id number] 04/13/2022 10:[address] [facility] Heel Cementer ID [id number] 04/13/2022 10:[address] [facility] Blood BLOOD SPECIMEN / Unknown 04/12/2022 9:41 AM CDT 04/13/2022 10:05 AM CDT Erich Diaz MD LAB - POINT OF CARE ORDERABLES [address] [address], [place] [phone] * CT BRAIN - Stroke (04/12/2022 9:36 AM CDT) Anatomical Region Laterality Modality Head Computed Tomogra phy 04/12/2022 9:39 AM CDT Impressions 04/12/2022 9:41 AM CDT IMPRESSION: 1. No acute intracranial process. 2. Progressed chronic microvascular ischemic changes compared to the brain CT from 10/06/2015. The findings were discussed by Dr. Duncan with Dr. Valentine at 0940 hours on 04/12/2022. > Interpreting Provider: Elizabeth Duncan MD on 04/12/2022 9:41 AM Narrative 04/12/2022 9:41 AM CDT PROCEDURE: ??CT BRAIN STROKE, DATE/TIME OF EXAM: ??04/12/2022 9:36 AM, LOCATION ??[facility] INDICATION: Code Stroke. Left facial droop. ADDITIONAL CLINICAL INFORMATION: Ordering Provider Reason For Exam: Technologist Note: Additional: COMPARISON: Brain CT from 10/06/2015. TECHNIQUE: Noncontrast CT brain was performed utilizing standard protocol. CT dose reduction technique was used, including Automated Exposure Control. FINDINGS: Parenchyma: No parenchymal hemorrhage. ??The brock-white differentiation is distinct. ??There is no mass lesion or mass effect. Patchy cerebral white matter hypodensity is now present on this exam, likely reflecting progress chronic microvascular ischemic changes compared to the prior brain CT. Extraaxial Spaces: Normal for age. No subdural or epidural collections identified. Ventricles: The ventricles are midline. There is mild generalized cerebral volume loss, in keeping with the patient's age. Orbits: The orbits are symmetric and normal. Sinuses: The imaged paranasal sinuses and mastoids are clear. Bones: No evidence of fracture or calvarial defect. The temporomandibular joints are well aligned. Other: Mild intracranial atherosclerosis is seen. Procedure Note Elizabeth Duncan MD - 04/12/2022 PROCEDURE: CT BRAIN STROKE, DATE/TIME OF EXAM: 04/12/2022 9:36 AM, LOCATION [facility] INDICATION: Code Stroke. Left facial droop. ADDITIONAL CLINICAL INFORMATION: Ordering Provider Reason For Exam: Technologist Note: Additional: COMPARISON: Brain CT from 10/06/2015. TECHNIQUE: Noncontrast CT brain was performed utilizing standard protocol. CT dose reduction technique was used, including Automated ExposureControl. FINDINGS: Parenchyma: No parenchymal hemorrhage. The brock-white differentiationis distinct. There is no mass lesion or mass effect. Patchy cerebral white matter hypodensity is now present on this exam, likely reflectingprogress chronic microvascular ischemic changes compared to the prior brain CT. Extraaxial Spaces: Normal for age. No subdural or epidural collections identified. Ventricles: The ventricles are midline. There is mild generalizedcerebral volume loss, in keeping with the patient's age. Orbits: The orbits are symmetric and normal. Sinuses: The imaged paranasal sinuses and mastoids are clear. Bones: No evidence of fracture or calvarial defect. Thetemporomandibular joints are well aligned. Other: Mild intracranial atherosclerosis is seen. IMPRESSION: 1. No acute intracranial process. 2. Progressed chronic microvascular ischemic changes compared to thebrain CT from 10/06/2015. The findings were discussed by Dr. Duncan with Dr. Valentine at 0940hours on 04/12/2022. > Interpreting Provider: Elizabeth Duncan MD on 04/12/2022 9:41 AM Erich Diaz MD CT ORDERABLES * BONE DENSITY AXIAL SKELETON(1OR MORE SITES)[id number] (02/09/2022 8:20 AM CDT) Anatomical Region Laterality Modality Other 02/09/2022 4:19 PM CDT Narrative 02/09/2022 4:48 PM CDT Examination: Dual energy x-ray absorptiometry of the left hip. Clinical Indication: E28.39: Ovarian failure Technique: Detailed data from the exam is sent separately to the ordering physician and is also available on [employer], the Radiology Department's computerized picture archive system. [...] on 02/09/2022 4:23 PM . I, Dr. CONY REECE D.O. have personally reviewed and interpreted this examination/study. This report was electronically signed by CONY REECE D.O. ??on 02/09/2022 4:48 PM . Procedure Note Cony Reece, DO - 02/09/2022 Examination: Dual energy x-ray absorptiometry of the left hip. Clinical Indication: E28.39: Ovarian failure Technique: Detailed data from the exam is sent separately to theordering physician and is also available on [employer], the Radiology Department's computerized picture archive system. [...] Peralta on 02/09/2022 4:[address] CONY Stevenson D.O. have personally reviewed and interpreted this examination/study. This report was electronically signed by CONY REECE D.O. on02/09/2022 4:48 PM . Jen Kam ASTRONAUT M[employer]ION SPECIALIST-WINDOWS AND DOORS INSTALLER DEXA ORDERABLE S * MAMMO BILAT SCREENING [...] BENIGN. Report dictated by Ronny Braxton MD (director of radiology) Zeferino Molina MD (resident) assisted in [...] most recent dated 09/15/2020 and 07/30/2019 from [facility]. TECHNIQUE: ??Tomosynthesis (3-D) and reconstructed synthetic 2-D [...] no significant change from the prior. Jen Kam ASTRONAUT M[employer]ION SPECIALIST-WINDOWS AND DOORS INSTALLER MAMMO ORDERABL ES * UT REMOTE 30 DAY ECG REV/REPORT (01/15/2022 10:38 AM CDT) Narrative Manuel Holcomb MD - 01/15/2022 10:38 AM CDT Manuel Holcomb MD ? 01/15/2022 10:41 AM Read Date: ??01/15/2022 Patient name: Ivonne Vera Patient : ??1955 Patient Age: [age] year old EVENT MONITOR REPORT: Indication for placement: Palpitations Requesting MD: Malcolm Arvizu Duration of monitorin12/08/2021 - 01/06/2022 Available tracings are adequate for interpretation for 16d 14h 02m. 1. ??The mean average HR overall was: 67 bpm 2. ??The fastest HR noted was: 131 bpm 3. ??The slowest HR noted was: 54 bpm and occurred on 12/21 at 0417 4. ?? 652 ventricular ectopic complexes occurred (<1% of 1.5 million complexes). 5. ??Atrial fibrillation was not detected. ??Atrial fibrillation burden was 0 %. 6. ??No Pause(s) noted of 3 seconds or longer. Patient transmitted 8 manually-triggered recordings and reported symptoms of tired or fatigued. During these manually-triggered recordings sinus rhythm with no conduction or rhythm abnormalities were noted. Other tracings demonstrated sinus rhythm with no rhythm or conduction abnormalities. ?? Final Interpretation: ?? No sustained arrhythmias. Manuel Holcomb MD PROCEDURE/MINOR SURG ICAL ORDERABLES * VITAMIN D 25-HYDROXY (09/20/2021 10:34 AM [facility]) Only the most recent of6 resultswithin the time period is included. Vitamin D, 25 Hydroxy 33.0 30.0 - 80.0 ng/mL 09/20/2021 12:[address] [facility] Comment: The recommendations for 25-Hydroxy Vitamin D clinical decision points are as follows: ? Deficient: ? <20.0 ng/mL ? Insufficient: ??20.0 - 29.9 ng/mL ? Sufficient: ? > or =30.0 ng/mL If the 25-Hydroxy Vitamin D results are inconsitent with clinical evidence, it is recommended that follow-up testing using a method such as LC/MS/MS be performed to confirm the result. Reference: ?The Endocrine Society Clinical Practice Guidelines. 2011 ? Blood BLOOD SPECIMEN / Unknown Lab Venipuncture / Unknown 09/20/2021 10:34 AM [facility] 09/20/2021 11:07 AM [facility] Shabana Eubanks DO LAB - CHEMISTRY [facility] [address] [place] [phone], [facility] [phone] * FOLATE (09/20/2021 10:34 AM [facility]) Only the most recent of5 resultswithin the time period is included. Folate 8.4 7.0 - 31.4 ng/mL 09/20/2021 12:12 PM [facility] Blood BLOOD SPECIMEN / Unknown Lab Venipuncture / Unknown 09/20/2021 10:34 AM [facility] 09/20/2021 11:07 AM [facility] Shabana Eubanks DO LAB - CHEMISTRY [facility] Performing Organization Address City/[facility]/ZIP Co de Phone Number [facility] [address] [place] [address], [facility] [phone] * VITAMIN B12 (09/20/2021 10:34 AM [facility]) Only the most recent of5 resultswithin the time period is included. Vitamin B12 295 213 - 816 pg/mL 09/20/2021 12:12 PM [facility] Blood BLOOD SPECIMEN / Unknown Lab Venipuncture / Unknown 09/20/2021 10:34 AM [facility] 09/20/2021 11:07 AM [facility] Shabana I Cha MARTINEZ LAB - CHEMISTRY [facility]osmery [facility] Performing Organization Address [facility]/ZIP Co de Phone Number [facility] [address] [place] [address], [place] [phone] * (ABNORMAL) LIPID PROFILE (09/20/2021 10:34 AM [facility]) Only the most recent of19 resultswithin the time period is included. Cholesterol Total 138 <200 mg/dL 09/20/2021 11:41 AM [facility] HDL 49 >40 mg/dL 09/20/2021 11:41 AM [facility] Comment: ATP III Classification of HDL Cholesterol: ? <40 mg/dL: ??Considered a major risk factor. ? >60 mg/dL: ??Considered a negative risk factor. ? LDL Calculated 57 <100 mg/dL 09/20/2021 11:41 AM [facility] Comment: ATP III Classification of LDL Cholesterol: ?<100 mg/dL: ??Optimal ? 100 - 129 mg/dL: ??Near Optimal/Above Optimal ? 130 - 159 mg/dL: ??Borderline High ? 160 - 189 mg/dL: ??High ?>190 mg/dL: ??Very High ? Triglycerides 162(H) <150 mg/dL 09/20/2021 11:41 AM [facility] Comment: ATP III Classification of Triglycerides: ?<150 mg/dL: ??Normal ? 150 - 199 mg/dL: ??Borderline High ? 200 - 400 mg/dL: ??High ?>500 mg/dL: ??Very High Blood BLOOD SPECIMEN / Unknown Lab Venipuncture / Unknown 09/20/2021 10:34 AM [facility] 09/20/2021 11:07 AM [facility] Shabana Eubanks DO LAB - CHEMISTRY [facility] [address] [place] [phone], [facility] [phone] * UT MSR PVR U&/BLADD CAPCTY US NON (08/18/2021 10:28 AM [facility]) Narrative Stephanie Lott - 08/18/2021 10:28 AM [facility] Stephanie Lott ? 08/18/2021 10:29 AM PVR = 0 mL Lana Rdz ASTRONAUT [employer] SPECIALIST-WINDOWS AND DOORS INSTALLER PROCEDURE/MIN OR SURGICAL ORDERABLES * CT ABDOMEN PELVIS W CONTRAST (07/04/2021 8:06 PM [facility]) Only the most recent of3 resultswithin the time period is included. Anatomical Region Laterality Modality Abdomen, Pelvis Computed Tomogra phy 07/05/2021 8:03 AM [facility] Impressions 07/05/2021 8:17 AM [facility] Impression: No acute process in the abdomen or pelvis. Unchanged nonobstructive 2 mm left kidney calculus . Report drafted by Josias Segal (resident) Dr. THUY Stevenson, MD, [facility] have personally reviewed and interpreted this examination/study. This report was electronically signed by THUY FROST MD, CHETAN ??on 07/05/2021 8:17 AM . Narrative 07/05/2021 8:17 AM [facility] Procedure Information DATE: 07/04/2021 8:06 PM EXAMINATION: Computed tomography (CT) of the abdomen and pelvis with contrast TECHNIQUE: CT of the abdomen and pelvis was performed following the uneventful administration of 100 mL of Isovue 370 intravenous contrast according to standard protocol. Clinical Information HISTORY: Abdominal pain COMPARISON: 05-31-21 Findings Lower Chest: Normal. Hepatobiliary: The liver is normal. The gallbladder is surgically absent. Pancreas: Normal. Spleen: Normal. Kidneys: Unchanged 2 mm left kidney nonobstructive calculus and left kidney neela or parapelvis cyst measuring 2.7 cm. Adrenals: Normal. Retroperitoneum: Normal. Peritoneum: Normal. Gastrointestinal: Mild sigmoid diverticulosis otherwise normal. Appendix: Normal. Pelvic Structures: Pelvic floor descent noted. The bladder is unremarkable. Vasculature: Scattered atherosclerotic vasculature changes. Bones: The visible osseous structures are intact. Degenerative changes are seen in the spine. Posterior spinal fusion from L4 to S1 is again seen. Soft tissues: Normal. Procedure Note Thuy Frost MD - 07/05/2021 Procedure Information DATE: 07/04/2021 8:06 PM EXAMINATION: Computed tomography (CT) of the abdomen and pelvis with contrast TECHNIQUE: CT of the abdomen and pelvis was performed following the uneventful administration of 100 mL of Isovue 370 intravenous contrast according to standard protocol. Clinical Information HISTORY: Abdominal pain COMPARISON: 05-31-21 Findings Lower Chest: Normal. Hepatobiliary: The liver is normal. The gallbladder is surgically absent. Pancreas: Normal. Spleen: Normal. Kidneys: Unchanged 2 mm left kidney nonobstructive calculus and left kidney perior parapelvis cyst measuring 2.7 cm. Adrenals: Normal. Retroperitoneum: Normal. Peritoneum: Normal. Gastrointestinal: Mild sigmoid diverticulosis otherwise normal. Appendix: Normal. Pelvic Structures: Pelvic floor descent noted. The bladder is unremarkable. Vasculature: Scattered atherosclerotic vasculature changes. Bones: The visible osseous structures are intact. Degenerative changes are seen in the spine. Posterior spinal fusion from L4 to S1 is again seen. Soft tissues: Normal. Impression: No acute process in the abdomen or pelvis. Unchanged nonobstructive 2 mm left kidney calculus . Report drafted by Josias Segal (resident) Dr. THUY Stevenson MD, FRCR have personally reviewedand interpreted this examination/study. This report was electronically signed by THUY FROST MD, FRCR on 07/05/2021 8:17 AM . Gregoria Shaw PA-C CT ORDERABLES * VANCOMYCIN LEVEL TROUGH (06/06/2021 4:29 AM CDT) Vancomycin Trough 11.1 10.0 - 20.0 ug/mL 06/06/2021 5:[address] [facility] Blood BLOOD SPECIMEN / Unknown Lab Venipuncture / Unknown 06/06/2021 4:29 AM CDT 06/06/2021 4:[address] [facility] - 06/06/2021 5:00 AM CDT See institution protocol. Rashaun Allred MD LAB - CHEMISTRY [facility] Performing Organization Address City/[facility]/ZIP Co de Phone Number [address] [address], [facility] [phone] * TSH REFLEX FREE T4 (06/04/2021 5:25 AM CDT) Only the most recent of3 resultswithin the time period is included. TSH 1.256 0.350 - 4.940 uIU/mL 06/04/2021 7:[address] [facility] Blood BLOOD SPECIMEN / Unknown Lab Venipuncture / Unknown 06/04/2021 5:25 AM CDT 06/04/2021 6:28 AM CDT Neelima Eng PA-C LAB - CHEMISTRY [facility] [address] [address], [place] [phone] * ALBUMIN BLOOD (06/03/2021 5:41 AM CDT) Albumin 3.4 3.4 - 5.0 g/dL 06/03/2021 7:[address] [facility] Blood BLOOD SPECIMEN / Unknown Lab Venipuncture / Unknown 06/03/2021 5:41 AM CDT 06/03/2021 6:05 AM CDT Neelima Eng PA-C LAB - CHEMISTRY ORD ERABLES Performing Organization Address City/[facility]/ZIP Co de Phone Number [address] [address], [place] [phone] * OSMOLALITY URINE (06/01/2021 11:41 AM CDT) Osmolality Urine 411 50-1,200 mOsm/kg 06/01/2021 1:[address] [facility] Urine URINE SPECIMEN OBTAINED BY CLEAN CATCH PROCEDURE / Unknown Collection / Unknown 06/01/2021 11:41 AM CDT 06/01/2021 11:48 AM CDT Dionte GONZALEZ LAB - URINE CHEM ISTRY ORDERABLES Performing Organization Address City/[facility]/ZIP Co de Phone Number [address] [address], [facility] [phone] * SODIUM URINE RANDOM (05/31/2021 8:36 AM CDT) Only the most recent of2 resultswithin the time period is included. Sodium Urine 84 Not Established mmol/L 05/31/2021 9:[address] [facility] Urine URINE SPECIMEN OBTAINED BY CLEAN CATCH PROCEDURE / Unknown Collection / Unknown 05/31/2021 8:36 AM CDT 05/31/2021 8:48 AM CDT Nicole Zepeda MD LAB - URINE MICA PARTS SPRAYER RY ORDERABLES [facility] [address] [place] [phone], [facility] [phone] * CREATININE URINE RANDOM (05/31/2021 8:36 AM CDT) Only the most recent of3 resultswithin the time period is included. Creatinine Urine 112 Not Established mg/dL 05/31/2021 9:[address] [facility] Urine URINE SPECIMEN OBTAINED BY CLEAN CATCH PROCEDURE / Unknown Collection / Unknown 05/31/2021 8:36 AM CDT 05/31/2021 8:48 AM CDT Nicole Zepeda MD LAB - URINE MICA PARTS SPRAYER RY ORDERABLES Performing Organization Address City/[facility] Co de Phone Number [address] [address], [facility] [phone] * Vascular Ultrasound (05/31/2021 3:38 AM CDT) Narrative Michael Whitaker MD - 05/31/2021 3:38 AM CDT Issa Dorsey MD ? 05/31/2021 ??3:40 AM Vascular Ultrasound Date/Time: 05/31/2021 3:38 AM Performed by: Issa Dorsey MD Authorized by: Michael Whitaker MD Consent: ??Consent obtained: ??Verbal Post-procedure details: ??Patient tolerance of procedure: ??Tolerated well, no immediate complications Comments: ?? Vascular ultrasound performed for peripheral IV placement. Placement successful. I interpreted the images myself. Michael Whitaker MD PROCEDURE/MINOR SURG ICAL ORDERABLES * Ultrasound Guided Peripheral IV (05/31/2021 3:36 AM CDT) Narrative Michael Whitaker MD - 05/31/2021 3:36 AM CDT Issa Dorsey MD ? 05/31/2021 ??3:38 AM Ultrasound Guided Peripheral IV Date/Time: 05/31/2021 3:36 AM Performed by: Issa Dorsey MD Authorized by: Michael Whitaker MD Consent: ??Consent obtained: ??Verbal Pre-procedure details: ??Skin preparation: ??Antiseptic wash Post-procedure details: ??Patient tolerance of procedure: ??Tolerated well, no immediate complications Comments: ?? I placed a 20 g peripheral IV to the patients right forearm under ultrasound guidance. Michael Whitaker MD PROCEDURE/MINOR SURG ICAL ORDERABLES * C DIFFICILE GDH AG + TOXIN A+B (05/14/2021 12:01 PM CDT) Pathologist [facility] GDH Antigen Negative Negative, Invalid 05/14/2021 7:10 PM CDT [facility] MICROBIOLOGY C difficile Toxin A + B Negative Negative, Invalid 05/14/2021 7:10 PM CDT [facility] MICROBIOLOGY Interpretation C difficile Negative for toxigenic C. difficile Negative for toxigenic C. difficile 05/14/2021 7:10 PM CDT [facility] MICROBIOLOGY Stool STOOL SPECIMEN / Unknown Collection / Unknown 05/14/2021 12:01 PM CDT 05/14/2021 12:09 PM CDT Aura Foote DO LAB - MICROBIOLOGY O RDERABLES [facility] MICROBIOLOGY [address] [place] [address], [facility] [phone] * HIV-1 HIV-2 ANTIBODY + HIV P24 AG PANEL (05/12/2021 3:38 PM CDT) HIV Antigen/Antibod y 1 & 2 Non-reacti ve Non-react fortino 05/12/2021 6:10 PM CDT [facility] Comment:Neither HIV-1 p24 An tigen nor HIV-1/HIV-2 Antibodies are detected. Blood BLOOD SPECIMEN / Unknown Lab Venipuncture / Unknown 05/12/2021 3:38 PM CDT 05/12/2021 4:10 PM CDT Aura Foote DO LAB - CHEMISTRY [place] [place] Performing Organization Address City/[facility]/ZIP Co de Phone Number [facility] [address] [place] [address], [place] [phone] * LACTIC ACID BLOOD (05/10/2021 11:34 PM CDT) Lactic Acid-Stat 1.8 <=2.0 mmol/L 05/11/2021 12:04 AM CDT [facility] Blood BLOOD SPECIMEN / Unknown Venipuncture / Unknown 05/10/2021 11:34 PM CDT 05/10/2021 11:45 PM CDT Low Neely MD LAB - CHEMISTRY [facility] [address] [place] [address], [facility] [phone] * UT CYSTOURETHROSCOPY (04/11/2021 1:00 PM CDT) Narrative Lana Rdz APRN-CNP - 04/11/2021 1:00 PM CDT Lana Rdz APRN-CNP ? 04/11/2021 ??1:07 PM Cystoscopy procedure note Indication for Procedure: frequent UTI Description: Pt placed on the procedure table in ??The supine/lithotomy position. she ??was prepped/draped in standard fashion. ??Pt correctly identified and time out performed. ??A flexible cystoscope was introduced per urethra withthe following findings. Urethra: ??Normal caliber, no stricture. ??No masses. ??Urethral sphincter with good coaptation Bladder neck patent without contracture Trigone - UO's orthotopic bilaterally. ??Clear efflux seen from both ureteral orifices. Mucosa normal without lesion Bladder - normal mucosa with + erythema. ??No FB present. ??+ grade 1 trabeculation. ??No cellules or diverticula. ??No fistula. ??Scope was retroflexed to assess entire surface of bladder. Squamous metaplasia at the bladder neck IMPRESSION: ??Erythematous bladder wall indicative of frequent UTI, squamous metaplasia PLAN: FU with ID for antibiotic therapy and CTU LISA Mazariegos Lana GONZALEZ PROCEDURE/MIN OR SURGICAL ORDERABLES * UT MSR PVR U&/BLADD CAPCTY US NON (04/07/2021 10:11 AM CDT) Narrative CaledoniaDidier putnam - 04/07/2021 10:11 AM CDT Didier Meza ? 04/11/2021 ??1:07 PM 58 ml Lana Putnam Kendell ASTR[employer]IST-WINDOWS AND [employer] INSTALLER PROCEDURE/MIN OR SURGICAL ORDERABLES * TSH (03/18/2021 2:36 PM CDT) Only the most recent of12 resultswithin the time period is included. TSH 1.51 0.40 - 4.50 mIU/L [facility] Comment: REPORT COMMENT: FASTING:NO Test Performed at: [facility] [address] [place], [place] ??[phone] SHERIF MEJIA DO,MPH Blood BLOOD SPECIMEN / Unknown 03/18/2021 2:36 PM CDT 03/18/2021 2:37 PM CDT Erica Reno ASTR[employer]AUT [employer]IST-WINDOWS AND [employer] INSTALLER LAB - CHEMI STRY ORDERABLES [facility] [address] [place] [address] * CT CHEST WO CONTRAST (01/19/2021 2:17 PM CDT) Anatomical Region Laterality Modality Chest Computed Tomogra phy 01/19/2021 3:13 PM CDT Impressions 01/19/2021 5:44 PM CDT Impression: 1.No suspicious pulmonary nodule is identified. Report drafted by Zeferino Molina (resident) Dr. Dom Stevenson M.D. have personally reviewed and interpreted this examination/study. This report was electronically signed by Dom BENITEZ M.D. ??on 01/19/2021 5:44 PM . Narrative 01/19/2021 5:44 PM CDT Procedure Information DATE: 01/19/2021 2:17 PM EXAMINATION: Computed tomography (CT) of the chest without contrast TECHNIQUE: CT of the chest was performed without contrast according to standard protocol. Clinical Information HISTORY: Z87.891: History of smoking 30 or more pack years COMPARISON: CT lung screening dated 08/04/2019 Findings Evaluation of visceral and vascular structures is degraded due to lack of intravenous contrast administration. Lines/Tubes: None. Lower neck and axillae: Normal. Mediastinum and Wilda: No enlarged lymph nodes are present. Heart and Pericardium: The cardiac chambers are normal in size. No pericardial fluid or thickening is present. There is mild atherosclerotic calcification of the aorta and coronary arteries. Lung Parenchyma, Airways, and Pleural Spaces: No pulmonary parenchymal or airway process is present. There is no pleural effusion or pneumothorax. No suspicious nodule is identified. Bones and Soft Tissue: Partial image fusion of the cervicothoracic spine is noted. Multilevel Schmorl's nodes are noted within the thoracic spine. Upper Abdomen: The liver is normal. The gallbladder is surgically absent. The spleen is normal. The pancreas is atrophied. There is unchanged 2 cm cyst within the lower pole of the left kidney. The visible portion of the stomach and bowels are normal. Procedure Note Farhana Benitez MD - 01/19/2021 Procedure Information DATE: 01/19/2021 2:17 PM EXAMINATION: Computed tomography (CT) of the chest without contrast TECHNIQUE: CT of the chest was performed without contrast according to standard protocol. Clinical Information HISTORY: Z87.891: History of smoking 30 or more pack years COMPARISON: CT lung screening dated 08/04/2019 Findings Evaluation of visceral and vascular structures is degraded due to lackof intravenous contrast administration. Lines/Tubes: None. Lower neck and axillae: Normal. Mediastinum and Wilda: No enlarged lymph nodes are present. Heart and Pericardium: The cardiac chambers are normal in size. No pericardial fluid or thickening is present. There is mild atherosclerotic calcification ofthe aorta and coronary arteries. Lung Parenchyma, Airways, and Pleural Spaces: No pulmonary parenchymal or airway process is present. There is no pleural effusion or pneumothorax. No suspicious nodule is identified. Bones and Soft Tissue: Partial image fusion of the cervicothoracic spine is noted. Multilevel Schmorl's nodes are noted within the thoracic spine. Upper Abdomen: The liver is normal. The gallbladder is surgically absent. The spleen is normal. The pancreas is atrophied. There is unchanged 2 cm cyst withinthe lower pole of the left kidney. The visible portion of the stomach and bowels are normal. Impression: 1.No suspicious pulmonary nodule is identified. Report drafted by Zeferino Molina (resident) Dr. Dom Stevenson M.D. have personally reviewed and interpretedthis examination/study. This report was electronically signed by Dom BENITEZ M.D. on 01/19/2021 5:44 PM . Erica Reno A[employer]IST-[employer] INST[employer]ER CT ORDERABL ES * EGD (12/14/2020 9:14 AM CDT) Report Endoscopy POC Endoscopy Department Report __ _ Patient Name: Ivonne Vera ? Procedure Date: 12/14/2020 9:14 AM ? Date of : 1955 Classification: Outpatient ?Gender: Female Ethnicity: Not or ? Race: White __ _ Providers: ?Terrell Quijano MD Referring MD: ? Erica Reno (Referring MD) Procedure: ?Upper GI endoscopy Indications: ?Dysphagia, Heartburn Medications: ?Propofol per Anesthesia Description of Procedure: Pre-Anesthesia Assessment: ?- Prior [...] ?satisfactory condition to undergo the procedure. ?After obtaining informed consent, the endoscope was ?passed under direct vision. Throughout the ?procedure, the patient's blood pressure, pulse, and ?oxygen saturations were monitored continuously. The ?[id number] was introduced through the mouth, and ?advanced to the second part of duodenum. The upper ?GI endoscopy was accomplished without difficulty. ?The patient tolerated the procedure well. ? Findings: ? The Z-line was regular and was found 39 cm from the incisors. There was ? edematous gastric mucosa below the z-line. Biopsies were taken with a ? cold forceps for histology. Verification of patient identification for ? the specimen was done by the nurse using the patient's name and ? date. Estimated blood loss was minimal. ? The exam of the esophagus was otherwise normal. No GERD changes. The ? vocal cords appeared normal. ? A few localized diminutive erosions with stigmata of recent bleeding ? were found in the gastric antrum. Biopsies were taken with a cold ? forceps for histology. Verification of patient identification for the ? specimen was done by the nurse using the patient's name and date. ? Estimated blood loss was minimal. ? The exam of the stomach was otherwise normal. ? The examined duodenum was normal. ? Estimated Blood Loss: ? Estimated blood loss was minimal. Complications: ?No immediate complications. Impression: ? - Z-line regular, 39 cm from the incisors. Biopsied. ?- Erosive gastropathy with stigmata of recent ?bleeding. Biopsied. R/O H pylori. ?- Normal examined duodenum. Recommendation: ? - Patient has a contact number available for ?emergencies. The signs and symptoms of potential ?delayed complications were discussed with the ?patient. Return to normal activities tomorrow. ?Written discharge instructions were provided to the ?patient. ?- Resume previous diet. ?- Continue present medications. ?- Await pathology results. ? Attending Participation: ??I personally performed the entire procedure. ? Procedure Code(s): ? --- Professional --- ? 01837, Esophagogastroduode noscopy, flexible, transoral; with biopsy, ? single or multiple Diagnosis Code(s): ?--- Professional --- ?K92.2, Gastrointestinal hemorrhage, unspecified ?R13.10, Dysphagia, unspecified ?R12, Heartburn CPT copyright 2019 [employer]. All rights reserved. The codes documented in this report are preliminary and upon sanding machine tender review may be revised to meet current compliance requirements. Terrell Quijano MD 12/14/2020 10:34:32 AM This report has been signed electronically. Note Initiated On: 12/14/2020 9:14 AM Number of Addenda: 0 ? [facility] ? [address] [place] [address] [facility] 12/14/2020 9:14 AM CDT Terrell Acevedo MD GI PROCEDU RE ORDERABLES [facility] * ENDOSCOPY, COLON, SCREENING (12/14/2020 9:12 AM CDT) Report Endoscopy POC Endoscopy Department Report _ Patient Name: Ivonne Vera ? Procedure Date: 12/14/2020 9:12 AM ? [...] and ?oxygen saturations were monitored continuously. The ?[id number] was introduced through the anus and ?advanced [...] Procedure Code(s): ? --- Professional --- ? 50539, 52, Colonoscopy, flexible; with biopsy, single or multiple Diagnosis Code(s): ?--- Professional --- ?Z86.010, Personal history of colonic polyps CPT copyright 2019 [employer]. All rights reserved. The codes documented in this report are preliminary and upon sanding machine tender review may be revised to meet current compliance requirements. Terrell Quijano MD 12/14/2020 10:40:50 AM This report has been signed electronically. Note Initiated On: 12/14/2020 9:12 AM Number of Addenda: 0 ? [facility] ? [address] [place] [address] [facility] 12/14/2020 9:12 AM CDT Terrell Acevedo MD GI PROCEDU RE ORDERABLES [facility] * UT ECG/REVIEW INTERPRET ONLY (11/13/2020 11:37 PM CDT) Narrative Dviine Fam MD - 11/13/2020 11:37 PM CDT Divine Fam MD ? 11/14/2020 ??4:51 PM Patient name: Ivonne Vera Patient : ??1955 Patient Age: [age] year old EVENT MONITOR REPORT: Indication for placement: Palpitations Requesting MD: ??Divine Fam MD Duration of monitorin09/16/2020 - 10/15/2020 Actual Monitoring Period (26 Days and 5 Hours) Available tracings are adequate for interpretation. Patient transmitted 8 manually-triggered recordings, and 3 auto-triggered events. During manually-triggered recordings, patient reported symptoms of chest pain/pressure and fast /irregular heart beats. During the manually-triggered recordings sinus rhythm and sinus tachycardia were noted. During the auto-triggered events sinus rhythm, atrial flutter with variable conduction and NSVT were recorded. 1. ??The mean average HR overall was: 64 bpm 2. ??The fastest HR noted was:118 bpm 3. ??The slowest HR noted was: 48 bpm 4. ?? < 1% ventricular ectopic beats occurred. 5 . Atrial flutter was detected lasting for 9 minutes, but no no atrial fibrillation. 6. ??No significant pauses of 3 seconds or more were detected. Final Interpretation: Sinus rhythm with an episode of atrial flutter for about 9 minutes but no other significant arrhythmia, bradycardia or pauses. Divine Fam MD ECG ORDERABL ES * ECHO COMPLETE (10/29/2020 12:13 PM CDT) Only the most recent of2 resultswithin the time period is included. Anatomical Region Laterality Modality Chest Echo 10/29/2020 10:5 0 AM CDT Narrative Procedure Note Coni Godwin MD - 11/01/2020 Erich Huggins MD ECHOCARDIOGRAPHY RAD IANT * (ABNORMAL) URINALYSIS NO MICROSCOPIC NO CULTURE (10/07/2020 1:08 PM MENDER HAND) Only the most recent of2 resultswithin the time period is included. Color UA YELLOW YELLOW [facility] Appearance TURBID(A) CLEAR [facility] Specific Henrietta UA 1.019 1.001 - 1.035 [facility] pH UA 6.0 5.0 - 8.0 [facility] Glucose UA NEGATIVE NEGATIVE [facility] Bilirubin UA NEGATIVE NEGATIVE [facility] Ketone UA NEGATIVE NEGATIVE [facility] Blood UA 1+(A) NEGATIVE [facility] Protein UA NEGATIVE NEGATIVE [facility] Nitrite UA POSITIVE(A) NEGATIVE [facility] Leukocyte UA 3+(A) NEGATIVE [facility] Comment: Test Performed at: [facility] [id number] [place] [address] ??[id number] SHERIF MEJIA DO,MPH Urine URINE SPECIMEN OBTAINED BY CLEAN CATCH PROCEDURE / Unknown 10/07/2020 1:08 PM MENDER HAND 10/07/2020 1:09 PM MENDER HAND Lana Rdz ASTRONAUT [employer]IST-WINDOWS AND [employer] INSTALLER LAB - URINALY SIS ORDERABLES [facility] [address] [place] [address] * MAMMO BILAT SCREENING (09/15/2020 10:29 AM MENDER HAND) Only the most recent of3 resultswithin the time period is included. Anatomical Region Laterality Modality Breast Bilateral Mammography 09/15/2020 3:03 PM MENDER HAND Impressions 09/15/2020 3:05 PM MENDER HAND No mammographic evidence of malignancy in either breast. ASSESSMENT: BIRADS Category 1: Negative mammogram. RECOMMENDATION: Bilateral screening mammogram in one year. Thank you for allowing us to participate in the care of your patient. *Reading Radiologist: Yudith Ruiz on 09/15/2020 at 3:05 PM Narrative 09/15/2020 3:05 PM MENDER HAND EXAMINATION: Digital screening mammogram on 09/15/2020 10:14 AM. Low-dose full-field digital breast tomosynthesis examination was performed with synthetic 2D images and 3D acquisitions. Computer assisted detection was utilized. PRIOR: Multiple prior mammograms, most recently 2019 BREAST PARENCHYMAL DENSITY: There are scattered areas of fibroglandular density. RISK ASSESSMENT CALCULATION: Risk assessment not performed due to COVID precautions FINDINGS: No suspicious masses, areas of architectural distortion or microcalcifications are evident on synthetic 2D mammogram or tomosynthesis images. ??There has been no significant interval change since the prior examination. Erica Rendonarturo ASTRONAUT [employer] SPECIALIST-WINDOWS AND [employer]ORS INSTALLER MAMMO ORDER MARCIA * XR CERVICAL SPINE 2 OR 3VW (08/12/2020 10:21 AM MENDER HAND) Anatomical Region Laterality Modality Spine Radiographic Natasha ging 08/12/2020 10:3 4 AM MENDER HAND Impressions 08/12/2020 10:38 AM MENDER HAND IMPRESSION: The C7 vertebral body is excluded from noief-[id number]-yrwv. The visualized portion of the operative segments are unchanged in alignment, with moderate bony fusion along the C3-4 and C4-5 vertebral bodies. This report was electronically signed by JOVANY ALBA ??on 08/12/2020 10:38 AM . Narrative 08/12/2020 10:38 AM MENDER HAND EXAMINATION: XR CERVICAL SPINE 2 OR 3VW HISTORY: M54.2: Neck pain COMPARISON: MRI from 06/23/2020 FINDINGS: There is again postoperative change of ACDF at C3-4 and C5-C7. The C7 vertebral body is excluded from the lylhe-gv-ymkh on the lateral image. The visualized alignment is unchanged. The hardware is unchanged. Moderate bony fusion is suggested along the operative segment vertebral bodies, particular at C3-4 and C4-5. There is no prevertebral swelling. Procedure Note Jovany Alba MD - 08/12/2020 EXAMINATION: XR CERVICAL SPINE 2 OR 3VW HISTORY: M54.2: Neck pain COMPARISON: MRI from 06/23/2020 FINDINGS: There is again postoperative change of ACDF at C3-4 and C5-C7. The C7 vertebral body is excluded from the jvsrz-bq-opda on the lateral image. The visualized alignment is unchanged. The hardware is unchanged.Moderate bony fusion is suggested along the operative segment vertebral bodies, particular at C3-4 and C4-5. There is no prevertebral swelling. IMPRESSION: The C7 vertebral body is excluded from pfibr-vo-qzoi. The visualized portion of the operative segments are unchanged in alignment, with moderate bony fusion along the C3-4 and C4-5 vertebral bodies. This report was electronically signed by JOVANY ALBA on 08/12/2020 10:38 AM . Carlos Manriquez MD DIAGNOSTIC IMAGING O RDERABLES * MRI CERVICAL SPINE WO CONTRAST (06/23/2020 6:31 AM MENDER HAND) Anatomical Region Laterality Modality Pelvis Magnetic Resonan ce 06/23/2020 2:32 PM MENDER HAND Impressions 06/23/2020 6:15 PM MENDER HAND IMPRESSION: 1.Postoperative appearance of anterior cervical fusion hardware at C3-4 and C5-7. 2.Multilevel degenerative changes as outlined. 3.There is a posterior disc bulge is seen at the C5-6 level which causes effacement of the ventral thecal sac and moderate spinal canal stenosis. There is mild cord abutment but no cord signal changes are seen. There is associated moderate to severe bilateral neural foraminal stenosis at the same level. Report drafted by Peng Hernández DO, MPH (resident) This report was approved ??by Peng Hernández ?? on 06/23/2020 6:15 PM . I, Dr. DAYTON KIRAN have personally reviewed and interpreted this examination/study. This report was electronically signed by DAYTON KIRAN ??on 06/23/2020 6:15 PM . Narrative 06/23/2020 6:15 PM MENDER HAND MRI CERVICAL SPINE WO CONTRAST DATE: 06/23/2020 6:31 AM EXAMINATION: Magnetic resonance imaging (MRI) of the cervical spine without contrast HISTORY: M54.12: Cervical radiculopathy. Prior cervical spine surgery with increasing pain now. TECHNIQUE: MRI of the cervical spine was performed without contrast according to standard protocol. COMPARISON: CT cervical spine without contrast dated 09/05/2013. FINDINGS: Postoperative appearance of anterior cervical discectomy and fusion hardware of C3-4 and C5-7. Significant blooming artifacts limits local evaluation. The alignment is maintained. Vertebral bodies are maintained in height without evidence of compression fractures. Marrow signal intensity is grossly unremarkable, although evaluation is limited due to blooming artifacts. The craniocervical junction and visualized portions of the posterior fossa appear normal. The spinal cord appears grossly unremarkable. The C2-3 and C7-T1 discs demonstrate mild degenerative disc disease, the remaining discs of the cervical spine are not well evaluated due to blooming artifact from the metallic orthopedic hardware, with apparent fusion at the C3-C4 and C4-C5 disc levels. No soft tissue abnormality is identified. Normal flow voids are identified in the vertebral arteries. C2-3: There is mild posterior disc bulge. There is thickening of the ligamentum flavum, touching the dorsal aspect of the cervical cord. There is minimal central canal stenosis. There is moderate facet osteoarthritis. There is mild uncovertebral joint osteoarthritis, left more than right. There is no significant neural foraminal stenosis. C3-4: Postoperative findings as above. There is no central canal stenosis. There is mild facet osteoarthritis. There is mild uncovertebral joint osteoarthritis. There is no significant neural foraminal stenosis. C4-5: Postoperative findings as above. There is no central canal stenosis. There is mild facet osteoarthritis. There is mild uncovertebral joint osteoarthritis. There is mild bilateral neural foraminal stenosis. C5-6: There is a posterior disc bulge, eccentric to the right, causing effacement of the thecal sac and abuts the cervical cord. There is thickening of the ligamentum flavum. There is moderate spinal canal stenosis. No cord signal changes are seen. There is mild bilateral facet osteoarthritis. There is moderate uncovertebral joint osteoarthritis. There is severe right and moderate to severe left neural foraminal stenosis. C6-7: There is no disc bulge. There is no central canal stenosis. There is mild facet osteoarthritis. There is mild uncovertebral joint osteoarthritis. There is mild left neural foraminal stenosis. C7-T1: There is no disc bulge. There is no central canal stenosis. There is no facet osteoarthritis. There is no uncovertebral joint osteoarthritis. There is no neural foraminal stenosis. Procedure Note Dayton Kiran MD - 06/23/2020 MRI CERVICAL SPINE WO CONTRAST DATE: 06/23/2020 6:31 AM EXAMINATION: Magnetic resonance imaging (MRI) of the cervical spine without contrast HISTORY: M54.12: Cervical radiculopathy. Prior cervical spine surgerywith increasing pain now. TECHNIQUE: MRI of the cervical spine was performed without contrast according to standard protocol. COMPARISON: CT cervical spine without contrast dated 09/05/2013. FINDINGS: Postoperative appearance of anterior cervical discectomy and fusion hardware of C3-4 and C5-7. Significant blooming artifacts limits local evaluation. The alignment is maintained. Vertebral bodies are maintained in height without evidence of compression fractures. Marrow signal intensity is grossly unremarkable, although evaluation is limited due to blooming artifacts. The craniocervical junction and visualized portions of the posterior fossa appear normal. The spinal cord appears grossly unremarkable. The C2-3 and C7-T1 discs demonstrate mild degenerativedisc disease, the remaining discs of the cervical spine are not wellevaluated due to blooming artifact from the metallic orthopedic hardware, with apparent fusion at the C3-C4 and C4-C5 disc levels. No soft tissue abnormality is identified. Normal flow voids are identified in the vertebral arteries. C2-3: There is mild posterior disc bulge. There is thickening of the ligamentum flavum, touching the dorsal aspect of the cervical cord.There is minimal central canal stenosis. There is moderate facetosteoarthritis. There is mild uncovertebral joint osteoarthritis, left more than right. There is no significant neural foraminal stenosis. C3-4: Postoperative findings as above. There is no central canalstenosis. There is mild facet osteoarthritis. There is mild uncovertebral joint osteoarthritis. There is no significant neural foraminal stenosis. C4-5: Postoperative findings as above. There is no central canalstenosis. There is mild facet osteoarthritis. There is mild uncovertebral joint osteoarthritis. There is mild bilateral neural foraminal stenosis. C5-6: There is a posterior disc bulge, eccentric to the right, causing effacement of the thecal sac and abuts the cervical cord. There is thickening of the ligamentum flavum. There is moderate spinal canal stenosis. No cord signal changes are seen. There is mild bilateral facet osteoarthritis. There is moderate uncovertebral joint osteoarthritis. There is severe right and moderate to severe left neural foraminal stenosis. C6-7: There is no disc bulge. There is no central canal stenosis. Thereis mild facet osteoarthritis. There is mild uncovertebral joint osteoarthritis. There is mild left neural foraminal stenosis. C7-T1: There is no disc bulge. There is no central canal stenosis. There is no facet osteoarthritis. There is no uncovertebral joint osteoarthritis. There is no neural foraminal stenosis. IMPRESSION: 1.Postoperative appearance of anterior cervical fusion hardware at C3-4 and C5-7. 2.Multilevel degenerative changes as outlined. 3.There is a posterior disc bulge is seen at the C5-6 level which causes effacement of the ventral thecal sac and moderate spinal canal stenosis. There is mild cord abutment but no cord signal changes are seen. Thereis associated moderate to severe bilateral neural foraminal stenosis at the same level. Report drafted by Peng Hernández DO, MPH (resident) This report was approved by Peng Hernández on 06/23/2020 6:15 PM . I, Dr. DAYTON KIRAN have personally reviewed and interpreted this examination/study. This report was electronically signed by DAYTON KIRAN on 06/23/2020 6:15 PM . Connor Higgins MD MR ORDERABLES * C DIFFICILE TOXIN/GDH W REFLX TO PCR (01/03/2020 11:23 AM CDT) Only the most recent of2 resultswithin the time period is included. C difficile Toxin/GDH w/Reflex to PCR [facility] Comment: ??CLOSTRIDIUM DIFFICILE TOXIN/GDH W/REFL TO PCR ?Micro Number: ?[id number] ??Test Status: ? Final ??Specimen Source: ?? STOOL ??Specimen Quality: ??Adequate ??GDH Antigen: ? Not Detected ??Toxin A and B: ? Not Detected ??COMMENT: ? No toxigenic C. difficile detected ? For additional information, please refer to ? http://education.Betyah/faq/SNF821 ? (This link is being provided for ? informational/educational purposes only.) Test Performed at: [facility] ??[id number] DARNELL RAI MD Stool STOOL SPECIMEN / Unknown 01/03/2020 11:23 AM CDT 01/03/2020 11:24 AM CDT Mindy Salgado PA-C LAB - MICROBIOLOG Y ORDERABLES Performing Organization Address [facility] Co de Phone Number [address] [address] * CULTURE STOOL PANEL (01/03/2020 11:23 AM CDT) Only the most recent of2 resultswithin the time period is included. EIA [facility] Comment: ??SHIGA TOXINS, EIA W/RFL TO E.COLI O157 CULTURE ?Micro Number: ?[id number] ??Test Status: ? Final ??Specimen Source: ?? STOOL ??Specimen Quality: ??Adequate ??Shiga Toxin: ? Not Detected Culture [facility] Comment: ??CAMPYLOBACTER, CULTURE ?Micro Number: ?[id number] ??Test Status: ? Final ??Specimen Source: ?? STOOL ??Specimen Quality: ??Adequate ??Result: ?No enteric Campylobacter isolated Culture [facility] Comment: ??SALMONELLA AND SHIGELLA, CULTURE ?Micro Number: ?[id number] ??Test Status: ? Final ??Specimen Source: ?? STOOL ??Specimen Quality: ??Adequate ??Result: ?No Salmonella or Shigella isolated REPORT COMMENT: SPLIT 01/01/2020 FROM [id number] Test Performed at: [facility] ??[id number] DARNELL RAI MD Stool STOOL SPECIMEN / Unknown 01/03/2020 11:23 AM CDT 01/03/2020 11:24 AM CDT Mindy Salgado PA-C LAB - MICROBIOLOG Y ORDERABLES Performing Organization Address [facility] Co de Phone Number [address] [address] * C-REACTIVE PROTEIN (01/01/2020 8:12 AM CDT) Only the most recent of2 resultswithin the time period is included. C-Reactive Protein 6.3 <8.0 mg/L [facility] Comment: REPORT COMMENT: COLLECTION KIT GIVEN TO PATIENT. PATIENT ADVISED TO RETURN. Test Performed at: [facility] [address] [place] [address] ??[id number] SHERIF MEJIA DO,MPH Blood BLOOD SPECIMEN / Unknown 01/01/2020 8:12 AM CDT 01/01/2020 8:13 AM CDT Mindy Salgado PA-C LAB - CHEMISTRY O RDERABLES Performing Organization Address [facility] de Phone Number [address] [address] * ERYTHROCYTE SEDIMENTATION RATE (01/01/2020 8:12 AM CDT) Only the most recent of2 resultswithin the time period is included. Erythrocyte Sedimentation Rate Westergren 5 < OR = 30 mm/h [facility] Comment: Test Performed at: [facility] ??[id number] DARNELL RAI MD Blood BLOOD SPECIMEN / Unknown 01/01/2020 8:12 AM CDT 01/01/2020 8:13 AM CDT Mindy Salgado PA-C LAB - HEMATOLOGY ORDERABLES Performing Organization Address [facility] Co de Phone Number [address] [address] * IR CAROTID CEREBRAL ANGIOGRAM (11/18/2019 9:26 AM CDT) Anatomical Region Laterality Modality Head X-Ray Angiograph y 11/18/2019 12:1 5 PM CDT Impressions 12/01/2019 3:43 PM CDT Impression: Approximately 50% stenosis (per NASCET criteria) of distal right common carotid artery before carotid bifurcation, and approximately 30% stenosis of right internal carotid artery at carotid bulb. I, Dr. EDDIE GUO M.D. have personally reviewed and interpreted this examination/study. This report was electronically signed by EDDIE GUO M.D. ??on 12/01/2019 3:43 PM . Narrative 12/01/2019 3:43 PM CDT Procedure: Cerebral angiogram 11/18/2019 Comparison study: None History: The patient a 64 -year-old female, who was found to have high grade stenosis of right internal carotid artery on on-invasive imaging (CT angio brain and neck) done at an outside hospital as part of TIA work-up. She is here for catheter angiography to quantify the stenosis to evaluate for candidacy for stent placement. Heel Cementer: Osmel Fried Assistants: Jai Whittaker Vessels: Ultrasound guided access of right femoral artery Right common carotid artery angiogram: Cervical and cerebral Right femoral artery angiogram 3D [place] CT was obtained by injection of contrast with the catheter in the right common carotid artery. The data was sent to a [employer] work station and analyzed with surface rendering. Anesthesia: Procedure was done under monitored anesthesia care (MAC). Please see anesthesia team documentation in [facility] for details. For details on monitored clinical parameters during the intra-service sedation time, please review the procedure nurse documentation in [facility]. Procedural detail: The risks, benefits, and alternatives to procedure were discussed in detail with the patient. These included but were not limited to the risk of blood loss, vessel injury, stroke, renal injury, and contrast allergy. The patient was brought to the biplane angiography suite where she underwent prep and drape procedures. Limited ultrasound of the right common femoral artery demonstrated a patent vessel. The take off of the profunda and other arteries were identified. A brock scale image was documented. The right common femoral artery was accessed using a micropuncture needle. The needle entry was documented. Following a series of exchanges, a 6 Latvian 35 cm Brite tip sheath was placed in the right femoral artery and a 5 Latvian Swanson 2 catheter was navigated into the aortic arch. The catheter was used to select the brachiocephalic artery followed by the right common carotid artery a cervical angiogram was obtained. This was followed by a cerebral angiogram with catheter tip in the right common carotid artery. 3D [place] CT was obtained by injection of contrast with the catheter in the right common carotid artery. The catheter was then removed from the arterial system. A right femoral angiogram was obtained through the existing sheath. The sheath was then removed. Hemostasis was achieved using a 6 Latvian Angio-Seal closure device. Hemostasis was immediate at the end of the closure procedure. The right dorsalis pedis pulse was palpable at the end of the closure procedure. The patient tolerated the procedure without immediate complications. She was returned to the recovery area and hemodynamically stable condition neurologically unchanged. The estimated blood loss was less than 20 mL. A total of 1.6 minutes of fluoroscopic time and 55 ml of Omnipaque-300 contrast were utilized for the study. Findings: There were good arterial, capillary, and venous opacification of all angiographic runs. The right common carotid artery angiogram reveals a normal course of the artery but decreased caliber of the artery in distal segment before carotid bifurcation which is appreciated well on 3D images only (crescent shaped stenosis). There is approximately 50% stenosis (per NASCET criteria) of the distal common carotid artery and approximately 30% stenosis of the right internal carotid artery after bifurcation at carotid bulb. The cerebral angiogram reveals normal course and caliber of the intracranial right internal carotid artery. The right middle cerebral artery and right anterior cerebral artery are also normal in course and caliber. The branches of right external carotid artery are normal in course and caliber. Venous drainage is normal. The right femoral artery angiogram reveals a puncture site above the femoral bifurcation. Procedure Note Eddie Guo MD - 12/01/2019 Procedure: Cerebral angiogram 11/18/2019 Comparison study: None History: The patient a 64 -year-old female, who was found to have high grade stenosis of right internal carotid artery on on-invasive imaging(CT angio brain and neck) done at an outside hospital as part of TIAwork-up. She is here for catheter angiography to quantify the stenosis toevaluate for candidacy for stent placement. Heel Cementer: Osmel Fried Assistants: Jai Whittaker Vessels: Ultrasound guided access of right femoral artery Right common carotid artery angiogram: Cervical and cerebral Right femoral artery angiogram 3D [place] CT was obtained by injection of contrast with the catheter inthe right common carotid artery. The data was sent to a [employer] workstation and analyzed with surface rendering. Anesthesia: Procedure was done under monitored anesthesia care (MAC). Please see anesthesia team documentation in [facility] for details. Fordetails on monitored clinical parameters during the intra-service sedation time, please review the procedure nurse documentation in [facility]. Procedural detail: The risks, benefits, and alternatives to procedurewere discussed in detail with the patient. These included but were notlimited to the risk of blood loss, vessel injury, stroke, renal injury, and contrast allergy. The patient was brought to the biplane angiographysuite where she underwent prep and drape procedures. Limited ultrasound of the right common femoral artery demonstrated a patent vessel. The take offof the profunda and other arteries were identified. A brock scale image was documented. The right common femoral artery was accessed using a micropuncture needle. The needle entry was documented. Following aseries of exchanges, a 6 Latvian 35 cm Brite tip sheath was placed in the right femoral artery and a 5 Latvian Nibu 2 catheter was navigated into the aortic arch. The catheter was used to select the brachiocephalic artery followed by the right common carotid artery a cervical angiogram was obtained. This was followed by a cerebral angiogram with catheter tip in the right common carotid artery. 3D [place] CT was obtained by injection of contrast with the catheter in the right common carotid artery. The catheter was then removed from the arterial system. A right femoral angiogram was obtained through the existing sheath. The sheath was then removed. Hemostasis was achieved using a 6 Latvian Angio-Seal closure device. Hemostasis was immediate at the end of the closure procedure.The right dorsalis pedis pulse was palpable at the end of the closure procedure. The patient tolerated the procedure without immediate complications. She was returned to the recovery area and hemodynamically stable condition neurologically unchanged. The estimated blood loss was less than 20 mL. A total of 1.6 minutes of fluoroscopic time and 55 ml of Omnipaque-300 contrast were utilized for the study. Findings: There were good arterial, capillary, and venous opacification of all angiographic runs. The right common carotid artery angiogram reveals a normal course of the artery but decreased caliber of the artery in distal segment before carotid bifurcation which is appreciated well on 3D images only(crescent shaped stenosis). There is approximately 50% stenosis (per NASCET criteria) of the distal common carotid artery and approximately 30% stenosis of the right internal carotid artery after bifurcation atcarotid bulb. The cerebral angiogram reveals normal course and caliber of the intracranial right internal carotid artery. The right middle cerebral artery and right anterior cerebral artery are also normal in course and caliber. The branches of right external carotid artery are normal in course and caliber. Venous drainage is normal. The right femoral artery angiogram reveals a puncture site above the femoral bifurcation. Impression: Approximately 50% stenosis (per NASCET criteria) of distal right common carotid artery before carotid bifurcation, and approximately 30%stenosis of right internal carotid artery at carotid bulb. Dr. EDDIE Stevenson M.D. have personally reviewed and interpretedthis examination/study. This report was electronically signed by EDDIE GUO M.D. on 12/01/2019 3:43 PM . Eddie Guo MD IR ORDERABLES * CT LUNG CANCER SCREEN LOW DOSE (08/04/2019 2:00 PM [facility]) Anatomical Region Laterality Modality Chest Computed Tomogra phy 08/04/2019 2:41 PM [facility] Impressions 08/08/2019 1:19 PM [facility] IMPRESSION: 1. No suspicious pulmonary nodule identified. Lung RADS category 1. Annual low-dose screening chest CT can be continued. Dictated by Ileana Santiago MD (director of radiology). Dr. MARLY Stevenson M.D. have personally reviewed and interpreted this examination/study. This report was electronically signed by MARLY SMITH M.D. ??on 08/08/2019 1:19 PM . Narrative 08/08/2019 1:19 PM [facility] EXAMINATION: Computed tomography (CT) of the chest without contrast HISTORY: 30 pack yr hx of smoking TECHNIQUE: CT of the chest was performed without contrast according to low dose protocol. COMPARISON: CT chest abdomen pelvis on 09/05/2013 FINDINGS: Evaluation of visceral and vascular structures is degraded due to lack of intravenous contrast administration. There is a left-sided aortic arch. The aorta and main pulmonary arteries are normal in course and caliber. The coronary arteries and aorta are atherosclerotic. The lungs are clear of focal consolidation. No pleural effusion or focal pleural thickening is identified. There is no evidence of pneumothorax. No suspicious pulmonary nodule is identified. The trachea is patent and midline. The heart size is normal. No pericardial effusion is present. No mediastinal, supraclavicular, or axillary lymphadenopathy is seen. The visible portions of the liver, gallbladder, spleen, pancreas, adrenal glands, kidneys, stomach, and bowel are normal. Bone windows demonstrate no suspicious lytic or blastic lesions. The visible osseous structures are intact. Anterior spinal fusion hardware of the cervical spine is partially imaged. Chronic compression deformity of the superior endplate of T12 with less than 25 percent height loss superimposes a Schmorl's node. Procedure Note Argelia Smith MD - 08/08/2019 EXAMINATION: Computed tomography (CT) of the chest without contrast HISTORY: 30 pack yr hx of smoking TECHNIQUE: CT of the chest was performed without contrast according tolow dose protocol. COMPARISON: CT chest abdomen pelvis on 09/05/2013 FINDINGS: Evaluation of visceral and vascular structures is degraded due to lackof intravenous contrast administration. There is a left-sided aortic arch. The aorta and main pulmonary arteries are normal in course and caliber. The coronary arteries and aorta are atherosclerotic. The lungs are clear of focal consolidation. No pleural effusion or focal pleural thickening is identified. There is no evidence of pneumothorax.No suspicious pulmonary nodule is identified. The trachea is patent and midline. The heart size is normal. No pericardial effusion is present. No mediastinal, supraclavicular, or axillary lymphadenopathy is seen. The visible portions of the liver, gallbladder, spleen, pancreas,adrenal glands, kidneys, stomach, and bowel are normal. Bone windows demonstrate no suspicious lytic or blastic lesions. The visible osseous structures are intact. Anterior spinal fusion hardwareof the cervical spine is partially imaged. Chronic compression deformity of the superior endplate of T12 with less than 25 percent height loss superimposes a Schmorl's node. IMPRESSION: 1. No suspicious pulmonary nodule identified. Lung RADS category 1.Annual low-dose screening chest CT can be continued. Dictated by Ileana Santiago MD (director of radiology). I, Dr. MARLY SMITH M.D. have personally reviewed and interpretedthis examination/study. This report was electronically signed by MARLY SMITH M.D. on 08/08/2019 1:19 PM . Erica Reno [employer] IN[employer] CT ORDERABL ES * CALCIUM IONIZED WHOLE BLOOD (06/18/2019 4:22 PM [facility]) Ionized Calcium Whole Blood 1.22 mmol/L 06/18/2019 4:36 PM [facility] Adjusted Ionized Calcium 1.21 1.19 - 1.34 mmol/L 06/18/2019 4:36 PM [facility] pH Whole Blood 7.38 7.35 - 7.45 06/18/2019 4:36 PM [facility] Whole Blood WHOLE BLOOD SPECIMEN / Unknown Venipuncture / Unknown 06/18/2019 4:22 PM [facility] 06/18/2019 4:30 PM [facility] Madison Joyce MD LAB - CHEMISTRY [place] [address] [phone] * CARDIAC RHYTHM STRIP ORDER (06/05/2019 8:14 AM CDT) Only the most recent of5 resultswithin the time period is included. Narrative 06/05/2019 8:14 AM CDT Ordered by an unspecified provider. Scanned Document CARDIAC SERVICES ORD ERABLES * CT ANGIO BRAIN AND NECK (05/27/2019 6:06 PM CDT) Anatomical Region Laterality Modality Head Computed Tomogra phy 05/27/2019 6:23 PM CDT Narrative 05/27/2019 6:[address] angiogram head neck HISTORY: Slurred speech. Patient had negative MRI brain for stroke TECHNIQUE: Postcontrast imaging with 100 cc Isovue-370 The aorta is atherosclerotic. There is a bovine origin of the great vessels. Calcified plaque is present the bilateral carotid bulbs and proximal internal carotid arteries with moderate to severe stenosis of the proximal right internal carotid artery and without significant stenosis on the left. There is calcified plaque of the cavernous carotid arteries without stenosis or occlusion. The vertebral arteries and basilar artery are normal. The visualized intracerebral arteries are normal. There is no enhancing brain lesion. The soft tissue structures the neck appear grossly normal. The visualized pulmonary arteries are normal. The visualized lungs are clear. Reading Radiologist: Ravin Villegas MD on 05/27/2019 at 6:36 PM Procedure Note Ravin Villegas MD - 05/27/2019 CT angiogram head neck HISTORY: Slurred speech. Patient had negative MRI brain for stroke TECHNIQUE: Postcontrast imaging with 100 cc Isovue-370 The aorta is atherosclerotic. There is a bovine origin of the great vessels. Calcified plaque is present the bilateral carotid bulbs and proximal internal carotid arteries with moderate to severe stenosis of the proximal right internal carotid artery and without significant stenosis on the left. There is calcified plaque of the cavernous carotid arteries without stenosis or occlusion. The vertebral arteries and basilar artery are normal. The visualized intracerebral arteries are normal. There is no enhancing brain lesion. The soft tissue structures the neck appear grossly normal. The visualized pulmonary arteries are normal. The visualized lungs are clear. Reading Radiologist: Ravin Villegas MD on 05/27/2019 at 6:36 PM Christiana Blair MD CT ORDERABLES * EEG (05/27/2019 12:48 PM CDT) Narrative [facility] - 05/27/2019 12:48 PM CDT Donavon Stafford MD ? 05/27/2019 12:49 PM ? [facility] [address] [address] [place] [address] Electroencephalogram Ivonne Vera 05/27/2019 Indication: ?? Ivonne Vera is a 63 year old female who presents with memory issues, slurred speech, slow cognition. Current Facility-Administered Medications Medication ? ? 0.9% NaCl injection 3 mL And ? ? 0.9% NaCl injection 1-10 mL ? ? acetaminophen (TYLENOL) tablet 650 mg ? ? aspirin chew tablet 81 mg ? ? atorvastatin (LIPITOR) tablet 80 mg ? ? carbidopa-levodopa (SINEMET) 25-100 MG tablet 2 tablet ? ? clonazePAM (KlonoPIN) tablet 0.25 mg ? ? dextrose IV 12.5-25 g ? ? ezetimibe (ZETIA) tablet 10 mg ? ? famotidine (PEPCID) tablet 10 mg ? ? gabapentin (NEURONTIN) capsule 600 mg ? ? glucagon (GLUCAGEN) injection 1 mg ? ? glucose (Diabetic Use) oral gel ? ? heparin injection 5,000 Units ? ? lamoTRIgine (LaMICtal) tablet 100 mg ? ? lamoTRIgine (LaMICtal) tablet 200 mg ? ? latanoprost (XALATAN) 0.005 % ophthalmic solution 1 drop ? ? LORazepam (ATIVAN) injection 0.5 mg ? ? nitrofurantoin monohyd macro crystals (MACROBID) capsule 100 mg ? ? ondansetron (disintegrating) (ZOFRAN ODT) tablet 4 mg Or ? ? ondansetron (ZOFRAN) injection 4 mg ? ? pramipexole (MIRAPEX) tablet 0.5 mg ? ? pramipexole (MIRAPEX) tablet 1 mg ? ? selegiline (ELDEPRYL) capsule 5 mg Procedure: Pt is awake and drowsy during the recording. A 16 channel EEG was performed in the International 10-20 system. One lead of EKG records a regular rate of 70 bpm. The technical quality is good.The background rhythm is alpha in the range of 8-9 hertz, with faster beta activity present anteriorly. Voltages range from 20-75 microvolts. Hyperventilation was not performed and photic stimulation produced no abnormal responses. There are no epileptiform discharges identified. Sleep was attempted. Impression: This is a normal electroencephalogram. Please note that a normal EEG cannot exclude a seizure disorder. If strongly suspected, further study may be performed with a sleep-deprived EEG. LIDIA Workman MD, PhD Diplomate, [place] Board of Psychiatry and Neurology (ABPN) Board Certified in Neurology and Clinical Neurophysiology [address], [facility] [address] [place] [address] (office) [phone] (FAX) Donavon Stafford MD NEUROLOGY ORDERABLES [facility] * UT INSERT NON-INDWELLING BLADDER (05/23/2019 2:02 PM CDT) Narrative Rodrigo Valles Che, MD - 05/23/2019 2:02 PM CDT Rodrigo Valles Che, MD ? 05/23/2019 ??2:02 PM The patient was prepped with betadine (or with hibiclens or other antiseptic agent if allergic to topical iodine). She understood the rationale for the procedure and agreed to the procedure. A 14F short female catheter was then advanced into the urethra and urine was collected for bedside urinalysis as well as a urine culture and/or formal urinalysis as needed. The post void residual is as noted in the progress note, as are results of the dipstick taken. The patient tolerated the procedure well. Rodrigo Valles MD PROCEDURE/MINOR SURG ICAL ORDERABLES * HEMOGLOBIN - POINT OF CARE (AMB) [facility] (05/19/2019 9:57 AM CDT) Only the most recent of2 resultswithin the time period is included. Pathologist [facility] Hemoglobin POCT 6.2 [facility] Blood BLOOD SPECIMEN / Unknown 05/19/2019 9:57 AM CDT Erica Reno ASTRONAUT MISSION SPECIALIST-WINDOWS AND DOORS INSTALLER LAB - POINT OF CARE ORDERABLES Performing Organization Address [facility] Co de Phone Number [facility] [address] [facility] [place] [address] * TISSUE TRANSGLUTAMINASE AB IGA (03/18/2019 1:07 PM CDT) Only the most recent of2 resultswithin the time period is included. Pathologist [facility] TTG Antibody IgA 1 <4 U/mL [facility] Comment: ?Value ??Interpretation ?<4 U/mL: No Antibody Detected ? >or=4 U/mL: Antibody Detected Test Performed at: meets/[facility] [address] ??[phone] GAIL ASHRAF MD,PHD Blood BLOOD SPECIMEN / Unknown 03/18/2019 1:07 PM CDT 03/18/2019 1:08 PM CDT Mindy Salgado PA-C LAB - [place] [address] * T4 FREE (03/18/2019 1:07 PM CDT) Only the most recent of6 resultswithin the time period is included. T4 Free 1.1 0.8 - 1.8 ng/dL [facility] Comment: Test Performed at: [facility] [address] [place], [place] ??[phone] SHERIF MEJIA DO,MPH Blood BLOOD SPECIMEN / Unknown 03/18/2019 1:07 PM CDT 03/18/2019 1:08 PM CDT Mindy Salgado PA-C LAB - CHEMISTRY O RDMARYCARMEN Performing Organization Address [facility] [place] [address] * IGA BLOOD (03/18/2019 1:07 PM CDT) Only the most recent of3 resultswithin the time period is included. Pathologist [facility] IgA 134 20 - 320 mg/dL [facility] Comment: Test Performed at: [facility] [address] [place] [address] ??[phone] SHERIF MEJIA DO,MPH Blood BLOOD SPECIMEN / Unknown 03/18/2019 1:07 PM CDT 03/18/2019 1:08 PM CDT Mindy Salgado PA-C LAB - CHEMISTRY O RDMARYCARMEN Performing Organization Address [facility] [place] [address] * UT CYSTOURETHROSCOPY (02/25/2019 1:39 PM CDT) Narrative Rodrigo Valles Che, MD - 02/25/2019 1:39 PM CDT Rodrigo Valles Che, MD ? 02/25/2019 ??1:39 PM Cystoscopy Procedure Note Indications: frequency and recurrent UTI Procedure Details: The patient was counseled about the procedure including risks, benefits, alternatives, and given a detailed description of what to expect. Cystoscopy was performed with a rigid 70 degree cystoscopy with a 17F sheath under aseptic conditions. The urethra was cleaned with Betadine solution (unless she was allergic to topical iodine when hibiclens was used). A careful examination of all quadrants was performed in a systematic fashion. The patient tolerated the procedure well and was allowed to watch the examination on a video monitor. Urethral visualization was also done. Findings: She was found to have trabeculations and cystitis cystica. Efflux was noted from the both ureteral orifice. Squamous metaplasia was noted. No stones or other lesions. Condition: ??Good Complications: ??None Rodrigo Valles MD PROCEDURE/MINOR SURG ICAL ORDERABLES * URINALYSIS - POINT OF CARE (02/25/2019) Only the most recent of2 resultswithin the time period is included. Clarity UA POCT clear Color UA POCT alex Leukocyte UA neg Negative Nitrite UA POCT neg Negative Urobilinogen UA 0.1 0.1 - 1.0 Protein UA POCT neg Negative pH UA 5.0 5.0 - 8.0 pH units Blood UA neg Negative Specific Henrietta UA POCT 1.010 1.002 - 1.030 Ketone UA neg Negative Bilirubin UA POCT neg Negative Glucose UA neg Negative Urine URINE / Unknown 02/25/2019 Rodrigo Valles MD LAB - POINT OF CARE ORDERABLES * VAS LEFT VENOUS DUPLEX LE (02/21/2019 1:52 PM CDT) Anatomical Region Laterality Modality Lower Extremity, Upper Extremity Intravascular Ultrasound 02/21/2019 1:13 PM CDT Narrative Procedure Note Stan Gaspar MD - 02/21/2019 Quiana Velarde MD VASCULAR LAB ORDERAB LES * IMAGING/RADIOLOGY/XRAY RESULTS ORDER (02/07/2019 3:44 PM CDT) Anatomical Region Laterality Modality Other Narrative 02/07/2019 3:44 PM CDT Ordered by an unspecified provider. Scanned Document IMAGING * LIPASE BLOOD (01/03/2019 4:51 PM CDT) Only the most recent of5 resultswithin the time period is included. Lipase 33 8 - 78 Units/L 01/03/2019 5:10 PM CDT [facility] Blood BLOOD SPECIMEN / Unknown Venipuncture / Unknown 01/03/2019 4:51 PM CDT 01/03/2019 4:51 PM CDT Miriam Grajeda MD LAB - CHEMISTRY [facility] [address] [phone] * MRI SHOULDER RIGHT WO CONTRAST (01/01/2019 4:17 PM CDT) Anatomical Region Laterality Modality Magnetic Resonan ce 01/02/2019 7:36 AM CDT Impressions 01/02/2019 8:24 AM CDT Impression: 1. Large full-thickness rotator cuff tear involving the entire supraspinatus and superior portion of the infraspinatus tendons with associated retraction and muscle atrophy. 2. Moderate joint effusion. 3. Mild arthritis. Report dictated by Allen Thornton DO (director of radiology). I, Dr. EDMOND LÓPEZ MD have personally reviewed and interpreted this examination/study. This report was electronically signed by EDMOND LÓPEZ MD ??on 01/02/2019 8:24 AM . Narrative 01/02/2019 8:24 AM CDT Examination: Magnetic resonance imaging (MRI) of the right shoulder without contrast Date: 01/01/2019 at 3:39 PM History: 63 yo female with history of a supraspinatus tear status post arthroscopic surgery on 09/05/2018. The operative report stated that the rotator cuff tear was not repairable. The patient was told she required a shoulder replacement and wants a second opinion. Technique: MRI of the right shoulder was performed without contrast according to standard protocol, including multiple sequences and multiple planes. Comparison: Right shoulder MRI without contrast dated 07/22/2018 at [facility]. Right shoulder radiograph dated 12/10/2018. Findings: The acromioclavicular joint is intact. There is mild acromioclavicular osteoarthritis with spurring. The humeral head is subluxed superiorly relative to the glenoid. There is a moderate joint effusion. The posterior aspect of the labrum appears diminutive compared anterior aspect. Increased T2 signal seen in the superior labrum. These findings may be due to degeneration versus tear. Low-grade thinning is seen in the glenohumeral articular cartilage without evidence of focal defect. There is a full-thickness tear of the entire supraspinatus and superior portion of the infraspinatus tendons. There is retraction of the supraspinatus tendon to the level of the glenohumeral joint. Moderate to severe fatty atrophy is seen of the supraspinatus and infraspinatus muscles. Muscle bulk is otherwise normal. The subscapularis and teres minor appear intact. The long head of the biceps anchor is intact and the tendon is normal without tendinosis or tear. Fluid is seen and the subacromial-subdeltoid bursa. ??Moderate fluid is seen in the subcoracoid region which may be in the subcoracoid bursa versus the superior subscapular recess. Marrow signal intensity is normal. The subcutaneous tissues are normal. Procedure Note Edmond López MD - 01/02/2019 Examination: Magnetic resonance imaging (MRI) of the right shoulder without contrast Date: 01/01/2019 at 3:39 PM History: 63 yo female with history of a supraspinatus tear status post arthroscopic surgery on 09/05/2018. The operative report stated that the rotator cuff tear was not repairable. The patient was told she requireda shoulder replacement and wants a second opinion. Technique: MRI of the right shoulder was performed without contrast according to standard protocol, including multiple sequences andmultiple planes. Comparison: Right shoulder MRI without contrast dated 07/22/2018 at [facility]. Right shoulder radiograph dated 12/10/2018. Findings: The acromioclavicular joint is intact. There is mild acromioclavicular osteoarthritis with spurring. The humeral head is subluxed superiorly relative to the glenoid. Thereis a moderate joint effusion. The posterior aspect of the labrum appears diminutive compared anterior aspect. Increased T2 signal seen in the superior labrum. These findings may be due to degeneration versus tear. Low-grade thinning is seen in the glenohumeral articular cartilagewithout evidence of focal defect. There is a full-thickness tear of the entire supraspinatus and superior portion of the infraspinatus tendons. There is retraction of the supraspinatus tendon to the level of the glenohumeral joint. Moderate to severe fatty atrophy is seen of the supraspinatus and infraspinatus muscles. Muscle bulk is otherwise normal. The subscapularis and teres minor appear intact. The long head of the biceps anchor is intact and the tendon is normal without tendinosis or tear. Fluid is seen and the subacromial-subdeltoid bursa. Moderate fluid is seen in the subcoracoid region which may be in the subcoracoid bursa versus the superior subscapular recess. Marrow signal intensity is normal. The subcutaneous tissues are normal. Impression: 1. Large full-thickness rotator cuff tear involving the entire supraspinatus and superior portion of the infraspinatus tendons with associated retraction and muscle atrophy. 2. Moderate joint effusion. 3. Mild arthritis. Report dictated by Allen Thornton DO (director of radiology). I, Dr. EDMOND LÓPEZ MD have personally reviewed and interpreted this examination/study. This report was electronically signed by EDMOND LÓPEZ MD on01/02/2019 8:24 AM . Juve Foster MD MR ORDERABLES * XR SHOULDER RIGHT 2VW OR MORE (12/10/2018 11:49 AM CDT) Anatomical Region Laterality Modality Upper Extremity Radiographic Natasha ging 12/10/2018 12:4 6 PM CDT Impressions 12/10/2018 12:47 PM CDT IMPRESSION: Very mild degenerative change. This report was electronically signed by EDMOND LÓPEZ MD ??on 12/10/2018 12:47 PM . Narrative 12/10/2018 12:47 PM CDT Exam: ??XR SHOULDER RIGHT 3 view History: ??Pain Comparison: None. Findings: No acute fracture or dislocation is present. There is very mild degenerative change at the acromioclavicular and glenohumeral joints. Cervical spine fusion hardware is partly imaged. Procedure Note dEmond López MD - 12/10/2018 Exam: XR SHOULDER RIGHT 3 view History: Pain Comparison: None. Findings: No acute fracture or dislocation is present. There is very mild degenerative change at the acromioclavicular and glenohumeral joints. Cervical spine fusion hardware is partly imaged. IMPRESSION: Very mild degenerative change. This report was electronically signed by EDMOND LÓPEZ MD on12/10/2018 12:47 PM . Bryn Rose MD DIAGNOSTIC IMAGING O RDERABLES * STREP PNEUMO ANTIBODY IGG 23 SEROTYPES PANEL (12/09/2018 10:27 AM CDT) Only the most recent of2 resultswithin the time period is included. Pneumococcal Serotype 1 Antibody IgG >13.64 ug/mL 12/11/2018 11:39 AM CDT [facility] Pneumococcal Serotype 2 Antibody IgG 0.27 ug/mL 12/11/2018 11:39 AM CDT [facility] Pneumococcal Serotype 3 Antibody IgG 2.41 ug/mL 12/11/2018 11:39 AM CDT [facility] Pneumococcal Serotype 4 Antibody IgG 8.10 ug/mL 12/11/2018 11:39 AM CDT [facility] Pneumococcal Serotype 5 Antibody IgG 5.17 ug/mL 12/11/2018 11:39 AM CDT [facility] Pneumococcal Serotype 6B Antibody IgG 13.36 ug/mL 12/11/2018 11:39 AM CDT [facility] Pneumococcal Serotype 7F Antibody IgG 0.70 ug/mL 12/11/2018 11:39 AM CDT [facility] Pneumococcal Serotype 8 Antibody IgG 0.85 ug/mL 12/11/2018 11:39 AM CDT [facility] Pneumococcal Serotype 9N Antibody IgG 6.45 ug/mL 12/11/2018 11:39 AM CDT [facility] Pneumococcal Serotype 9V Antibody IgG 5.66 ug/mL 12/11/2018 11:39 AM CDT [facility] Pneumococcal Serotype 10a Antibody IgG 0.89 ug/mL 12/11/2018 11:39 AM CDT [facility] Pneumococcal Serotype 11a Antibody IgG 2.15 ug/mL 12/11/2018 11:39 AM CDT [facility] Pneumococcal Serotype 12F Antibody IgG 0.11 ug/mL 12/11/2018 11:39 AM CDT [facility] Pneumococcal Serotype 14 Antibody IgG 22.49 ug/mL 12/11/2018 11:39 AM CDT [facility] Pneumococcal Serotype 15b Antibody IgG 5.51 ug/mL 12/11/2018 11:39 AM CDT [facility] Pneumococcal Serotype 17f Antibody IgG 18.20 ug/mL 12/11/2018 11:39 AM CDT [facility] Pneumococcal Serotype 18C Antibody IgG 12.10 ug/mL 12/11/2018 11:39 AM CDT [facility] Pneumococcal Serotype 19a Antibody IgG 7.21 ug/mL 12/11/2018 11:39 AM CDT [facility] Pneumococcal Serotype 19F Antibody IgG 6.44 ug/mL 12/11/2018 11:39 AM CDT [facility]) Pneumococcal Serotype 20 Antibody IgG 0.70 ug/mL 12/11/2018 11:39 AM CDT [facility] Pneumococcal Serotype 22f Antibody IgG 0.45 ug/mL 12/11/2018 11:39 AM CDT [facility]) Pneumococcal Serotype 23F Antibody IgG 0.43 ug/mL 12/11/2018 11:39 AM CDT [facility] Pneumococcal Serotype 33f Antibody IgG 0.27 ug/mL 12/11/2018 11:39 AM CDT [facility]) Interpretation Pneumococcal Serotype See Note 12/11/2018 11:39 AM CDT [facility] Comment: INTERPRETIVE INFORMATION: Streptococcus pneumoniae Antibodies, IgG A pre- and post-vaccination comparison is required to adequately assess the humoral immune response to Prevnar 7 (P7), Prevnar 13 (P13), and/or Pneumovax 23 (PNX) Streptococcus pneumoniae vaccines. Pre-vaccination samples should be collected prior to vaccine administration. Post-vaccination samples should be obtained at least 4 weeks after immunization. Testing of post-vaccination samples alone will provide only general immune status of the individual to various pneumococcal serotypes. In the case of pure polysaccharide vaccine, indication of immune system competence is further delineated as an adequate response to at least 50 percent of the serotypes in the vaccine challenge for those 2-5 years of age and to at least 70 percent of the serotypes in the vaccine challenge for those 6-65 years of age. Individual immune response may vary based on age, past exposure, immunocompetence, and pneumococcal serotype. Responder Status ? Antibody Ratio Non-Responder . . . . . . . . . . . . . . Less than 2-fold Weak Responder . . . . . . . . . . . . . 2-fold to 4-fold Good Responder . . . . . . . . . . . . . Greater than 4-fold A response to 50-70 percent or more of the serotypes in the vaccine challenge is considered a normal humoral response(1). Antibody concentration greater than 1.0 - 1.3 ug/mL is generally considered long-term protection(2). References: 1. Jerrica GONZALEZ, Whitney JW, Jose X, HE, [place] HR. Multilaboratory assessment of threshold versus fold-change algorithms for minimizing analytical variability in multiplexed pneumococcal IgG measurements. Clin Vaccine Immunol. 2014;21(7):982-8. 2. Jerrica GONZALEZ, [place] HR. Use and Clinical Interpretation of Pneumococcal Antibody Measurements in the Evaluation of Humoral Immune Function. Clin Vaccine Immunol. 2015;22(2):148-152. Test developed and characteristics determined by [facility]. See Compliance Statement B: [email or web address]/ Performed by [facility], [address] [place] [address] [email or web address], Souleymane Disla MD, Lab. Director Blood BLOOD SPECIMEN / Unknown Lab Venipuncture / Unknown 12/09/2018 10:27 AM CDT 12/09/2018 10:53 AM CDT Kary Schmidt MD LAB - CHEMISTRY [facility] [address] * B-TYPE NATRIURETIC PEPTIDE (12/09/2018 10:27 AM CDT) Only the most recent of3 resultswithin the time period is included. BNP 18 See Comment pg/mL 12/09/2018 11:[address] [facility] Comment: * Disclaimer: BNP results may be falsely high by 20% due * * to shift observed secondary to new reagent lot. Lab ?* * working with gear technician to resolve. ?* * ?* * Please contact Core Lab Supervisor Packing with any questions ??* A decision threshold of 100 pg/mL has been demonstrated to provide the maximal combination of sensitivity, specificity and predictive value for the diagnosis of congestive heart failure (CHF). ??Virtually all patients with no evidence of CHF have BNP values less than 100 pg/mL. A BNP value greater than 100 pg/mL is consistent with the diagnosis of CHF in the appropriate clinical setting. In a study of 693 patients (male and female) with diagnosed CHF, the following values were determined based on the NYHA functional classification system: NYHA Functional Class ?Mean Valule (pg/mL) ? % >100 pg/mL ?I ?320 ? 58.1 ?II ? 432 ? 73.0 ?III ?656 ? 79.0 ?IV ?1635 ? 98.3 ? Blood BLOOD SPECIMEN / Unknown Lab Venipuncture / Unknown 12/09/2018 10:27 AM CDT 12/09/2018 10:53 AM CDT Alen Olivas MD LAB - CHEMISTRY [facility] Organization Address [facility] Co de Phone Number [address] [phone] * UT INSERT NON-INDWELLING BLADDER (10/09/2018 9:20 AM MENDER HAND) Narrative Rodrigo Valles Che, MD - 10/09/2018 9:20 AM MENDER HAND Rodrigo Valles Che, MD ? 10/09/2018 ??9:20 AM Please look at progress note for details for the visit. Rodrigo Valles MD PROCEDURE/MINOR SURG ICAL ORDERABLES * TETANUS ANTIBODY (06/06/2018 4:00 PM CDT) Tetanus Antitoxoid Antibody 3.16 IU/mL [facility] Comment: REFERENCE RANGE: ?0.10 IU/mL or greater Antibody levels > or = 0.10 IU/mL are considered protective. However, tetanus can still occur in some individuals with such antibody levels. These results should not be used to determine the necessity to administer antitoxin when clinically indicated. This test was developed and its analytical performance characteristics have been determined by [facility]. It has not been cleared or approved by FDA. This assay has been validated pursuant to the CLIA regulations and is used for clinical purposes. Test Performed at: meets [facility] [address] [place], [place] ??[phone] Hadley MARTINES Blood BLOOD SPECIMEN / Unknown 06/01/2018 3:45 AM CDT Paul Fischer MD LAB - CHEMISTRY [facility] Organization Address City/State/ZIP Co de Phone Number [facility] [id number] [place] [address] * DIPHTHERIA ANTIBODY (06/06/2018 4:00 PM CDT) [facility] Diphtheria Antitoxid Antibody 0.18 IU/mL [facility] Comment: REFERENCE RANGE: ?0.10 IU/mL or greater Interpretive Criteria ?? <0.10 IU/mL ?Nonprotective Antibody Level ?? > Or = 0.10 IU/mL ?Protective Antibody Level Antibody levels > or = 0.10 IU/mL are considered protective. After a primary series of three properly spaced diphtheria toxoid doses in adults or four doses in infants, a protective level of antitoxin (defined as greater than 0.10 IU of ? antitoxin/mL) is reached in more than 95%. This test was developed and its analytical performance characteristics have been determined by [facility]. It has not been cleared or approved by FDA. This assay has been validated pursuant to the CLIA regulations and is used for clinical purposes. NO COLLECTION DATE RECEIVED. WE HAVE USED THE DATE THE SPECIMEN WAS RECEIVED BY THIS LABORATORY THE COLLECTION DATE. IF THIS IS INCORRECT, PLEASE CONTACT CLIENT SERVICES. PHONE NUMBER: [phone] Test Performed at: meets [facility] [address] [place] [address] ??[phone] Hadley MARTINES Blood BLOOD SPECIMEN / Unknown 06/01/2018 3:45 AM CDT Paul Fischer MD LAB - CHEMISTRY [facility] Performing Organization Address [facility] de Phone Number [facility] [address] [place] [address] * (ABNORMAL) COMPLEMENT TOTAL (06/06/2018 4:00 PM CDT) Pathologist [facility] Complement Total CH50 >60(H) 31 - 60 U/mL [facility] Comment: Test Performed at: [facility] ??[phone] SHERIF MEJIA DO,MPH Blood BLOOD SPECIMEN / Unknown 06/01/2018 3:45 AM CDT Paul Fischer MD LAB - CHEMISTRY [facility] Performing Organization Address [facility] de Phone Number [facility] [phone] [place] [address] * (ABNORMAL) MANNOSE-BINDING LECTIN (06/06/2018 4:00 PM CDT) Pathologist [facility] Mannose-Binding Lectin <0.5(L) ng/mL [facility] Comment: ?Reference Range: ?DEFICIENT: ??<100 ?NORMAL: ?>=100 Mannose-binding lectin (MBL, also known as Sherrie-binding Lectin) is a serum collectin (c-type lectin) and is considered an important component of the innate immune system. Clinical studies have used 50 or 100 ng/mL to define severe MBL deficiency. MBL is also known to activate the classical complement pathway through its binding to serine proteases MASP-2 and MASP-1. MBL deficiency has been associated with recurrent infections in children 6 months to 17 months of age, during the time when the adaptive immune system (IgG production) is not fully mature. This test was performed using a kit that has not been cleared or approved by the FDA. The analytical performance characteristics of this test have been determined by [facility]. This test should not be used for diagnosis without confirmation by other medically established means. Test Performed at: meets/[facility] [address] [address] [place] ??[phone] SANCHEZ WEAVER MD,PHD,BOLIVAR Blood BLOOD SPECIMEN / Unknown 06/01/2018 3:45 AM CDT Paul Fischer MD LAB - CHEMISTRY [facility] Performing Organization Address [facility] Co de Phone Number [facility] [address] [place] [address] * IGE BLOOD (06/06/2018 4:00 PM CDT) IgE 2 <OF=457 kU/L [facility] Comment: Test Performed at: meets [facility] [address] [place], [place] ??[phone] SHERIF MEJIA DO,MPH Blood BLOOD SPECIMEN / Unknown 06/01/2018 3:45 AM CDT Paul Fischer MD LAB - CHEMISTRY [facility] Performing Organization Address [facility] Co de Phone Number [facility] [phone] [place] [phone] * (ABNORMAL) IGM BLOOD (06/06/2018 4:00 PM CDT) IgM 46(L) 48 - 271 mg/dL [facility] Comment: Test Performed at: meets [place] [address] [place], [place] ??[phone] SHERIF MEJIA DO,MPH Blood BLOOD SPECIMEN / Unknown 06/01/2018 3:45 AM CDT Paul Fischer MD LAB - CHEMISTRY [facility] Performing Organization Address [facility] Co de Phone Number [facility] [address] [place] [phone] * (ABNORMAL) IGG BLOOD (06/06/2018 4:00 PM CDT) IgG 504(L) 694 - 1618 mg/dL [facility] Comment: Test Performed at: [facility] [address] [address] [place] ??[phone] SHERIF MEJIA DO,MPH Blood BLOOD SPECIMEN / Unknown 06/01/2018 3:45 AM CDT Paul Fischer MD LAB - CHEMISTRY [place] [facility] [address] [place] [address] * FLOW CYTOMETRY PADMJAA MEDIUM PANEL (05/31/2018 12:39 PM CDT) Pathologist [facility] Reason for test Hypogammaglobulinemi a 279.00 8 4:04 PM CDT [facility] Client Specimen ID # [id number] 8 4:04 PM T [facility] Number of Markers 9 8 4:04 PM CDT [facility] Flow Cytometry Results Differential Result Comment WBC Count /uL 23841 % Lymphocytes 37 Lymphocyte Count u/L 3885 8 4:04 PM CDT [facility] Flow Cytometry Results (Continued) Cell Region A: Lymphocytes Dual Labeled Results Results % Absolute Count (cells/uL) CD3 73 2836 CD3+CD4+ 42 1632 CD3+CD8+ 28 1088 CD4:CD8 Ratio 1.50 CD19 13 505 CD27 55 2137 CD56 12 466 sIgD 12 466 %CD4 & CD45RO 71 1159 %CD4 &CD45RA 24 392 %CD27 & CD19 4 %CD19 & CD27 15 %CD19 & CD27 + IgD+ 4 %CD19 & CD27 + IgD- 8 %CD19 & CD27 - IgD+ 95 8 4:04 PM CDT [facility] Flow Cytometry Interpretation Testing is technical only and does not require an interpretation of results. 8 4:04 PM T [facility] Reference Range Peripheral Blood Lymphocyte Adult Normal Reference Range % except CD4/CD8 CD1 0 % CD24 11-19 % CD2 74-94 % CD25 5-17 CD3 54-94 % CD33 0-7 CD4 40-56 % CD34 0-3 CD4/CD8 0.7-2.7 CD38 15-55 CD5 57-93 % CD45 97-100 CD7 58-82 % CD56 6-26 CD8 17-45 % CD57 0-26 CD10 1-9 % CD117 0 CD11b 14-42 % CD138 0-1 CD11c 4-14 % IgG 0-7 CD13 0-4 % IgM 4-16 CD14 0-11 % IgA 2-6 CD15 0-1 % IgD 3-15 CD16 0-23 % [place] 3-12 % CD19 8-24 % Lambda 3-7 % CD20 7-17 % HLA-DR 9-25 % CD23 2-16 % TdT 0 % % 8 4:04 PM CDT [facility] Disclaimer Test performed at [facility], [address] [place] [address], [facility]. This test was developed and its performance characteristics determined by the Flow Cytometry Laboratory. It has not been cleared by the [place] Food and Drug Administration (FDA). The FDA has determined that such clearance or approval is not necessary. This test is used for clinical purposes. It should not be regarded as investigational or for research. This laboratory is regulated under the Clinical Laboratory Improvement Amendments of 1998 (CLIA) as a qualified to perform high complexity clinical testing. By law [place], CD4 lymphocyte counts on patients with HIV infection must be reported by the physician to the [facility] Health authority. 8 4:04 PM CDT [facility] Embedded Images 8 4:04 PM CDT [facility] Blood BLOOD SPECIMEN / Unknown Lab Venipuncture / Unknown 05/31/2018 12:39 PM CDT 05/31/2018 12:51 PM CDT Paul Fischer MD LAB - PATHOLOGY/CYTO LOGY ORDERABLES [facility] [address] [place] [address]. [place] [address], [facility] [phone] * ALLERGEN RESPIRATORY PROFILE ([place]) (05/31/2018 12:39 PM CDT) IgE Total <2 <=214 kU/L 06/02/2018 9:15 PM CDT [facility] Comment: REFERENCE INTERVAL: Immunoglobulin E, Serum Access complete set of age- and/or gender-specific reference intervals for this test in the [facility] Laboratory Test Directory ([email or web address]). Allergen Dermatophagoides farinae <0.10 <=0.34 kU/L 06/02/2018 9:15 PM CDT [facility] Allergen Dermatophagoides pteronyssinus <0.10 <=0.34 kU/L 06/02/2018 9:15 PM CDT [facility] Allergen Cat Dander <0.10 <=0.34 kU/L 06/02/2018 9:15 PM CDT [facility] Allergen Dog Dander <0.10 <=0.34 kU/L 06/02/2018 9:15 PM CDT [facility] Allergen Bermuda Grass <0.10 <=0.34 kU/L 06/02/2018 9:15 PM CDT [facility] Allergen Michael Grass <0.10 <=0.34 kU/L 06/02/2018 9:15 PM CDT [facility] Allergen Cockroach Gabonese <0.10 <=0.34 kU/L 06/02/2018 9:15 PM CDT [facility] Allergen Alternaria alternata <0.10 <=0.34 kU/L 06/02/2018 9:15 PM CDT [facility] Allergen A fumigatus IgE <0.10 <=0.34 kU/L 06/02/2018 9:15 PM CDT [facility] Allergen Hormodendrum <0.10 <=0.34 kU/L 06/02/2018 9:15 PM CDT [facility] Allergen P. Notatum <0.10 <=0.34 kU/L 06/02/2018 9:15 PM CDT [facility] Allergen Dale Maple <0.10 <=0.34 kU/L 06/02/2018 9:15 PM CDT [facility] Allergen [place] Tree <0.10 <=0.34 kU/L 06/02/2018 9:15 PM CDT [facility] Allergen Elm <0.10 <=0.34 kU/L 06/02/2018 9:15 PM CDT [facility] Allergen Miami Tree <0.10 <=0.34 kU/L 06/02/2018 9:15 PM CDT [facility] Allergen Mountain Walton <0.10 <=0.34 kU/L 06/02/2018 9:15 PM CDT [facility] Allergen White Goliad Tree IgE <0.10 <=0.34 kU/L 06/02/2018 9:15 PM CDT [facility] Allergen Herrick <0.10 <=0.34 kU/L 06/02/2018 9:15 PM CDT [facility] Allergen Pecan Tree <0.10 <=0.34 kU/L 06/02/2018 9:15 PM CDT [facility] Allergen Oac[place] Tree <0.10 <=0.34 kU/L 06/02/2018 9:15 PM CDT [facility] Allergen White Jeff <0.10 <=0.34 kU/L 06/02/2018 9:15 PM CDT [facility] Allergen Rough Pigweed <0.10 <=0.34 kU/L 06/02/2018 9:15 PM CDT [facility] Allergen Common Ragweed <0.10 <=0.34 kU/L 06/02/2018 9:15 PM CDT [facility] Allergen Martinez Elder <0.10 <=0.34 kU/L 06/02/2018 9:15 PM CDT [facility] Allergen Bahraini Thistle <0.10 <=0.34 kU/L 06/02/2018 9:15 PM CDT [facility] Allergen Mouse <0.10 <=0.34 kU/L 06/02/2018 9:15 PM CDT [facility] Allergen Mucor racemosus <0.10 <=0.34 kU/L 06/02/2018 9:15 PM CDT [facility] Allergen Peanut <0.10 <=0.34 kU/L 06/02/2018 9:15 PM CDT [facility] Allergen Milk (Cow) <0.10 <=0.34 kU/L 06/02/2018 9:15 PM CDT [facility] Comment: Performed by [facility], [address] [place] [address] [email or web address], Souleymane Disla MD, Lab. Director Blood BLOOD SPECIMEN / Unknown Lab Venipuncture / Unknown 05/31/2018 12:39 PM CDT 05/31/2018 12:48 PM CDT Christopher Blair DO LAB - CHEMISTRY [facility] [employer] [facility]) [address] [place] [address], [facility] * URINALYSIS - POINT OF CARE (AMB) [facility] (05/08/2018) Only the most recent of17 resultswithin the time period is included. Specific Henrietta UA 1.020 pH UA 6.0 WBC UA - neg Nitrite UA - neg Protein UA - neg Glucose UA - neg Ketones UA POCT - neg Urobilinogen UA 0.2 mg/dL Bilirubin UA POCT - neg Blood Urine POCT - neg Urine URINE / Unknown 05/08/2018 Víctor Lacey MD LAB - POINT OF CA RE ORDERABLES * UT 3 COMP FOOT EXAM COMPLETED (Automatically Completed) (03/07/2018) Narrative Erica Reno, ASTRONAUT MISSION SPECIALIST-WINDOWS AND DOORS INSTALLER - 03/07/2018 left and right foot/feet examined with shoes and socks removed. Visual inspection was normal. Sensory exam with monofilament was ??normal. Dorsal pedal and posterior tibial pulses were normal. Erica Reno ASTRONAUT MISSION SPECIALIST-WINDOWS AND DOORS INSTALLER UT - PROFES SIONAL SERVICES * HEPATIC FUNCTION PANEL (02/06/2018 2:39 PM CDT) Only the most recent of3 resultswithin the time period is included. Protein Total 7.2 6.0 - 8.3 g/dL 018 3:20 PM T [facility] Albumin 4.1 3.4 - 5.0 g/dL 02/06/2018 3:20 PM [facility] Bilirubin Total 0.6 0.2 - 1.2 mg/dL 01/12 3:20 PM [facility] Bilirubin Conjugated 0.2 0.0 - 0.5 mg/dL 02/06/2018 3:20 PM [facility] Bilirubin Unconjugated 0.4 Unconjugated Bilirubin is a calculated value: Reference ranges have not been established. mg/dL 02/06/2018 3:20 PM [facility] Alkaline Phosphatase 104 40 - 150 Units/L 02/06/2018 3:20 PM [facility] ALT 9 0 - 55 Units/L 02/06/2018 3:20 PM [facility] AST 19 5 - 34 Units/L 02/06/2018 3:20 PM [facility] Albumin/Globulin Ratio 1.3 1.1 - 2.3 02/06/2018 3:20 PM [facility] Blood BLOOD SPECIMEN / Unknown Lab Venipuncture / Unknown 02/06/2018 2:39 PM CDT 02/06/2018 2:49 PM CDT Víctor Lacey MD LAB - CHEMISTRY O RDERABLES [address] [phone] * UT TTE W/DOPPLER, COMPLETE, UT INJ PERFLUTREN LIP MICROS,ML (01/14/2018 4:09 PM CDT) Narrative Emani Ruiz MD - 01/14/2018 4:09 PM CDT Emani Ruiz MD ? 01/14/2018 ??4:09 PM [facility] 2-D & M-Mode Echocardiogram Report Color Flow Doppler Report Patients Name: Ivonne Vera ?: 1955 Age: 62 y.o. Gender: female ?? Date of Test: ??01/10/2018 Referring Physician: Alen Olivas MD [address] [facility] [address] [place] [address] Primary Care Physician: Siri Wolfe MD Introduction: Ivonne Vera is a 62 y.o. female presenting with palpitations. Indication: palpitations Chamber Measurements LV Internal Dimension Systole (cm): 4.2 cm LV Internal Dimension Diastole (cm): 2.9 cm Septal Thickness (cm): 1.1 cm Aortic Root Measurement (cm): 2.4 cm Left Atrium Measurement (cm): 3.4 cm LVOT Diameter (cm): 2.1 cm Ejection Fraction 55% Color Flow and Doppler Waveform Analysis Aortic Velocities: AV Max (m/s): 1.4 m/s LVOT max (m/s): 0.8 m/s Mitral Velocities: E (m/s): 0.8 m/s A (m/s): 0.7 m/s Tricuspid Velocities: PulmonicVelocities: Max Pulmonic Valve Velocity (m/s): 1.1 m/s OVERALL INTERPRETATION: -Technically adequate study. - Definity utilized for endocardial enhancement and edge detection. ??Contrast images are technically adequate. - Normal left ventricular size and systolic function without regional wall motion abnormalities. Ejection fraction is estimated to be 55%. - Normal right ventricular size and systolic function. - Normal right ventricular systolic pressure; estimated RVSP 31mmHg. ??IVC normal size with respiratory variation. ?? - Normal LV diastolic function. - Left atrial size is mildly enlarged. ??Right atrial size is normal. - Normal aortic valve structure and velocities. ??No aortic regurgitation. ??No aortic stenosis. - Normal mitral valve structure and velocities. ??Mild mitral regurgitation. No mitral stenosis. - Normal tricuspid valve structure. ??Mild tricuspid regurgitation. - Normal pulmonary valve structure and velocities. Mild pulmonary insufficiency. - Normal pericardium. - Normal aortic root. Electronically signed by: Emani Ruiz MD Date of Interpretation: 01/14/18 ?Date of Final Report: 01/14/18 Alen Olivas MD ECG ORDERABLES * UT DRAIN/INJECT LARGE JOINT/BURSA (12/26/2017 3:05 PM CDT) Narrative Taiwo Pérez MD - 12/26/2017 3:05 PM CDT Taiwo Pérez MD ? 12/26/2017 ??3:05 PM Orthopaedic Surgery Procedure Note Diagnosis: Right hip trochanteric bursitis/pain Procedure: Injection of corticosteroid into the right hip trochanteric bursa Indications: Ivonne Vera is a 62 y.o. female ??who has right hip trochanteric bursitis/pain. Procedure Details: The patient was informed of her condition, and the potential benefits of injection of steroid. The patient was counseled as to the risks of the procedure and allergies were reviewed. The patient was understanding and agreeable. The patient was placed into the appropriate position. The area was prepped with betadine and alcohol. The skin, subcutaneous, and peribursal tissues were injected with 7cc 1% lidocaine without epinephrine using a 21 Ga spinal needle with 3 cc of Kenalog. The needle was removed and the needle site cleaned with alcohol and dressed with a sterile bandage. The procedure was performed under sterile conditions. ??The patient tolerated the procedure well. Remainder of plan per note. Taiwo Pérez MD 12/26/2017 1:07 PM Taiwo Pérez MD PROCEDURE/MINOR MAILE GICAL ORDERABLES * EYE EXAM (12/18/2017 8:38 AM CDT) Anatomical Region Laterality Modality Other Narrative 12/18/2017 8:38 AM CDT Ordered by an unspecified provider. Scanned Document SCANNING ONLY * LAB HISTORICAL RESULTS-ONBASE (10/31/2017) Only the most recent of10 resultswithin the time period is included. 10/31/2017 Historical Provider LAB - CHEMISTRY O [place] [address] [place] [address], [facility] * XR PELVIS W RIGHT HIP 2VW (09/19/2017 2:33 PM [facility]) Anatomical Region Laterality Modality Radiographic Natasha ging 09/19/2017 2:46 PM [facility] Impressions 09/19/2017 3:40 PM [facility] Unremarkable study. Edited by Francisca Clayton on 09/19/2017 2:54 PM Narrative 09/19/2017 3:40 PM [facility] PELVIS AND RIGHT HIP HISTORY: Pain. Views of the pelvis and right hip show a well-maintained joint space. There is no fracture or lytic or blastic lesion. Gina and screw stabilization of the lumbar spine is present. Procedure Note Jovanni Vang MD - 09/19/2017 PELVIS AND RIGHT HIP HISTORY: Pain. Views of the pelvis and right hip show a well-maintained joint space. There is no fracture or lytic or blastic lesion. Gina and screw stabilization of the lumbar spine is present. IMPRESSION Unremarkable study. Edited by Francisca Clayton on 09/19/2017 2:54 PM Taiwo Pérez MD DIAGNOSTIC IMAGING ORDERABLES * XR KNEE 4+ VW RIGHT (09/19/2017 2:33 PM [facility]) Only the most recent of4 resultswithin the time period is included. Anatomical Region Laterality Modality Lower Extremity Radiographic Natasha ging 09/19/2017 2:45 PM [facility] Impressions 09/19/2017 2:45 PM [facility] Unremarkable study. Narrative 09/19/2017 2:45 PM [facility] Knee 4 views. HISTORY: Knee pain. 4 views of the knee demonstrate no fracture or dislocation or lytic or blastic lesion. Procedure Note Jovanni Vang MD - 09/19/2017 Knee 4 views. HISTORY: Knee pain. 4 views of the knee demonstrate no fracture or dislocation or lytic or blastic lesion. IMPRESSION Unremarkable study. Taiwo Pérez MD DIAGNOSTIC IMAGING ORDERABLES * (ABNORMAL) HGB HCT PANEL (06/06/2017 4:35 AM CDT) Only the most recent of2 resultswithin the time period is included. Hemoglobin 8.4(L) 12.0 - 15.6 gm/dL 06/06/2017 5:03 AM CDT [facility] Hematocrit 25.2(L) 35.9 - 45.5 % 06/06/2017 5:03 AM CDT [facility] Blood BLOOD SPECIMEN / Unknown Lab Venipuncture / Unknown 06/06/2017 4:35 AM CDT 06/06/2017 4:50 AM CDT Mark Frederick MD LAB - HEMATOLOGY ORDERABLES [facility] [address] [place] [address] * US KIDNEYS/BLADDER (RETROPERITONEAL COMPLETE) (06/05/2017 9:45 AM CDT) Anatomical Region Laterality Modality Abdomen Ultrasound 06/05/2017 10:0 3 AM CDT Impressions 06/05/2017 10:11 AM CDT Left renal cyst. Negative for hydronephrosis. Edited by Berta Garnica on 06/05/2017 10:09 AM Narrative 06/05/2017 10:11 AM CDT RENAL SONOGRAM. HISTORY: Acute renal injury. Right kidney is 10.2 x 4.7 cm with a cortical thickness of 11 mm. Left kidney is 11.6 x 6.3 cm with a cortical thickness of 21 mm. A cyst is seen centrally measuring 1.8 cm and there is another cyst peripherally measuring 0.5 cm. Urinary bladder is unremarkable. There is no hydronephrosis in either kidney. Procedure Note Jovanni Vang MD - 06/05/2017 RENAL SONOGRAM. HISTORY: Acute renal injury. Right kidney is 10.2 x 4.7 cm with a cortical thickness of 11 mm. Left kidney is 11.6 x 6.3 cm with a cortical thickness of 21 mm. A cyst is seen centrally measuring 1.8 cm and there is another cyst peripherally measuring 0.5 cm. Urinary bladder is unremarkable. There is no hydronephrosis in either kidney. IMPRESSION Left renal cyst. Negative for hydronephrosis. Edited by Berta Garnica on 06/05/2017 10:09 AM Ivan Castellanos MD ORDERABLES * EOSINOPHIL URINE SMEAR (06/05/2017 8:32 AM CDT) Eosinophils Urine NONE SEEN NONE SEEN 06/05/2017 9:56 AM CDT [facility] Urine URINE / Unknown Collection / Unknown 06/05/2017 8:32 AM CDT 06/05/2017 8:43 AM CDT Ivan Castellanos MD LAB - URINE CHEMI STRY ORDERABLES Performing Organization Address [facility] Co de Phone Number [facility] [address] [place] [address] [phone] * LYTES (NA K CL) URINE RANDOM PANEL (06/05/2017 8:32 AM CDT) Sodium Urine 105 mmol/L 06/05/2017 9:05 AM CDT [facility] Potassium Urine 24.4 mmol/L 06/05/2017 9:05 AM CDT [facility] Chloride Urine 105.0 mmol/L 06/05/2017 9:05 AM CDT [facility] Urine URINE SPECIMEN OBTAINED BY CLEAN CATCH PROCEDURE / Unknown Collection / Unknown 06/05/2017 8:32 AM CDT 06/05/2017 8:44 AM CDT Ivan Castellanos MD LAB - URINE CHEMI STRY ORDERABLES Performing Organization Address [facility] Co de Phone Number [facility] [address] [place] [address] * (ABNORMAL) IRON + TRANSFERRIN PANEL (06/05/2017 4:41 AM CDT) Iron 68 50 - 170 ug/dL 06/05/2017 11:35 AM CDT [facility] Transferrin 225(L) 250 - 380 mg/dL 06/05/2017 11:35 AM CDT [facility] TIBC Calculated 281 240 - 450 mg/dL 06/05/2017 11:35 AM CDT [facility] Iron Saturation % 24 20 - 50 % 06/05/2017 11:35 AM CDT [facility] Blood BLOOD SPECIMEN / Unknown Lab Venipuncture / Unknown 06/05/2017 4:41 AM CDT 06/05/2017 11:09 AM CDT Ivan Castellanos MD LAB - CHEMISTRY O RDMARYCARMEN Performing Organization Address [facility] Co de Phone Number [facility] [address] [place] [address] * FERRITIN (06/05/2017 4:41 AM CDT) Only the most recent of3 resultswithin the time period is included. Ferritin 148 10 - 291 ng/mL 06/05/2017 11:35 AM CDT [facility] Blood BLOOD SPECIMEN / Unknown Lab Venipuncture / Unknown 06/05/2017 4:41 AM CDT 06/05/2017 11:09 AM CDT Ivan Castellanos MD LAB - CHEMISTRY O JANET Performing Organization Address [facility] Co de Phone Number [facility] [address] [place] [address] * BLOOD TYPE VERIFICATION (06/04/2017 11:57 AM CDT) Only the most recent of2 resultswithin the time period is included. ABO O 06/04/2017 12:48 PM CDT [facility] Rh Type Positive 06/04/2017 12:48 PM CDT [facility] Blood Bank BLOOD SPECIMEN / Unknown Lab Venipuncture / Unknown 06/04/2017 11:57 AM CDT 06/04/2017 11:57 AM CDT Taiwo Pérez MD LAB - BLOOD BANK OR DERABLES Performing Organization Address City/[facility] Co de Phone Number [facility] [address] [place] [address] * CULTURE MSSA/MRSA (05/14/2017 11:35 AM CDT) Pathologist [facility] Culture Negative for Staphylococcus aureus (MRSA/MSSA) LYNNE 05/16/2017 8:04 AM CDT [facility] MICROBIOLOGY Microbiology SPECIMEN FROM NASAL FOSSAE / Unknown Collection / Unknown 05/14/2017 11:35 AM CDT 05/14/2017 12:10 PM CDT Taiwo Pérez MD LAB - MICROBIOLOGY ORDERABLES [facility] MICROBIOLOGY [address] [phone] * TRANSFERRIN (05/14/2017 11:35 AM CDT) Transferrin 283 250 - 380 mg/dL 05/14/2017 12:44 PM CDT [facility] Blood BLOOD SPECIMEN / Unknown Venipuncture / Unknown 05/14/2017 11:35 AM CDT 05/14/2017 12:12 PM CDT Taiwo Pérez MD LAB - CHEMISTRY ORD ERABLES Performing Organization Address [facility] Co de Phone Number [facility] [address] [place] [address] * XR KNEE RIGHT 2VW OR LESS (03/22/2017 10:31 AM CDT) Only the most recent of2 resultswithin the time period is included. Anatomical Region Laterality Modality Lower Extremity Other Impressions 03/22/2017 11:04 AM CDT IMPRESSION: 1. Moderate medial compartment osteoarthritis, intervally progressed. 2. Effusion and one or more probable loose bodies. This report was electronically signed by EDMOND LÓPEZ MD ??on 03/22/2017 11:04 AM . Narrative 03/22/2017 11:04 AM CDT Exam: ??XR KNEE RIGHT 1 OR 2 VW History: ??R knee pain and swelling Comparison: 12/06/2013. Findings: No acute fracture or dislocation is seen. There is moderate medial compartment joint space narrowing. Tricompartmental osteophytes are noted. There is an effusion. No erosions are seen. A 15 x 6 mm bone fragment is present adjacent to the anterior aspect of the distal femoral shaft. This was present previously. This probably represents a piece of heterotopic ossification in the soft tissues, or possibly a loose body in the far superior aspect of the suprapatellar recess. On the lateral projection, a 12 mm calcified structure projects along the anterior aspect of the joint space, unchanged, probably a loose body. Procedure Note Edmond López MD - 11/09/2017 Exam: XR KNEE RIGHT 1 OR 2 VW History: R knee pain and swelling Comparison: 12/06/2013. Findings: No acute fracture or dislocation is seen. There is moderate medialcompartment joint space narrowing. Tricompartmental osteophytes are noted.There is an effusion. No erosions are seen. A 15 x 6 mm bone fragment ispresent adjacent to the anterior aspect of the distal femoral shaft. This was present previously. This probablyrepresents a piece of heterotopic ossification in the soft tissues, orpossibly a loose body in the far superior aspect of the suprapatellarrecess. On the lateral projection, a 12 mm calcified structure projects along the anterior aspect of the jointspace, unchanged, probably a loose body. IMPRESSION IMPRESSION: 1. Moderate medial compartment osteoarthritis, intervally progressed. 2. Effusion and one or more probable loose bodies. This report was electronically signed by EDMOND LÓPEZ MD on 03/22/201711:04 AM . Siri Wolfe MD DIAGNOSTIC IMAGING O RDERABLES * MRI LUMBAR SPINE WO CONTRAST (02/09/2017 3:38 PM CDT) Anatomical Region Laterality Modality Spine Other Impressions 02/10/2017 6:49 AM CDT IMPRESSION: 1. Thoracic and lumbar degenerative disc and joint disease as described above. Chronic T12 compression fracture with superimposed Schmorl's node. 2. Partially imaged cervical fusion with apparent elevated signal in the mid cervical cord. This could be further evaluated by magnetic resonance imaging (MRI) of the cervical spine without contrast, if clinically warranted. I, Dr. PATY GOODE M.D. have personally reviewed and interpreted this examination/study. This report was electronically signed by PATY GOODE M.D. ??on 02/10/2017 6:49 AM . Narrative 02/10/2017 6:49 AM CDT EXAMINATION: Magnetic resonance imaging (MRI) of the thoracic and lumbar spine without contrast HISTORY: Thoracolumbar pain TECHNIQUE: MRI of the thoracic and lumbar spine was performed without contrast according to standard protocol. FINDINGS: Comparison is made with a study from 06 February 2017. 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 Thoracic spine: The alignment is normal. There is a chronic nonretropulsed T12 compression fracture with 25 percent height loss anteriorly and a superimposed Schmorl's node. No subchondral marrow edema is identified. There is a hemangioma in the T12 vertebral body. The spinal cord appears normal. There is mild disc bulge at T6-7, T7-8, T8-9, T9-10, T11-T12, and T12-L1. No significant central canal stenosis is identified. The facets appear normal. No neural foraminal stenosis is seen. Trace bilateral pleural effusions are present. Lumbar spine: The alignment is normal. L4-5 and L5-S1 discectomies and L5 laminectomy with instrumented anterior and posterior fusion at these levels obscures the adjacent vertebrae and soft tissues. Noninstrumented vertebral bodies are normal in height with normal marrow signal intensity. The conus medullaris terminates at the level of T12 and the distal spinal cord signal intensity is normal. Noninstrumented intervertebral discs are normal in height. A left renal cyst is present. L1-L2: There is mild disc bulge. There is no central canal stenosis. There is no facet osteoarthritis. There is no neural foraminal stenosis. L2-L3: There is mild disc bulge. There is no central canal stenosis. There is mild bilateral facet osteoarthritis. There is no neural foraminal stenosis. L3-L4: There is diffuse disc bulge. There is mild central canal stenosis. There is mild bilateral facet osteoarthritis. There is mild left neural foraminal stenosis. L4-L5: A discectomy is present. There is no central canal stenosis. The facets are obscured by instrumented posterior fusion. There is mild right neural foraminal stenosis. L5-S1: A discectomy is present. There is no central canal stenosis. The facets are obscured by instrumented posterior fusion. There is no neural foraminal stenosis. Procedure Note Paty Goode MD - 11/09/2017 EXAMINATION: Magnetic resonance imaging (MRI) of the thoracic and lumbarspine without contrast HISTORY: Thoracolumbar pain TECHNIQUE: MRI of the thoracic and lumbar spine was performed withoutcontrast according to standard protocol. FINDINGS: Comparison is made with a study from 06 February 2017. 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 Thoracic spine: The alignment is normal. There is a chronic nonretropulsed T12 compressionfracture with 25 percent height loss anteriorly and a superimposedSchmorl's node. No subchondral marrow edema is identified. There is ahemangioma in the T12 vertebral body. The spinal cord appears normal. There is mild disc bulge at T6-7, T7-8, T8-9,T9-10, T11-T12, and T12-L1. No significant central canal stenosis isidentified. The facets appear normal. No neural foraminal stenosis isseen. Trace bilateral pleural effusions are present. Lumbar spine: The alignment is normal. L4-5 and L5-S1 discectomies and L5 laminectomywith instrumented anterior and posterior fusion at these levels obscuresthe adjacent vertebrae and soft tissues. Noninstrumented vertebral bodiesare normal in height with normal marrow signal intensity. The conus medullaris terminates at the level ofT12 and the distal spinal cord signal intensity is normal. Noninstrumentedintervertebral discs are normal in height. A left renal cyst is present. L1-L2: There is mild disc bulge. There is no central canal stenosis. Thereis no facet osteoarthritis. There is no neural foraminal stenosis. L2-L3: There is mild disc bulge. There is no central canal stenosis. Thereis mild bilateral facet osteoarthritis. There is no neural foraminalstenosis. L3-L4: There is diffuse disc bulge. There is mild central canal stenosis.There is mild bilateral facet osteoarthritis. There is mild left neuralforaminal stenosis. L4-L5: A discectomy is present. There is no central canal stenosis. Thefacets are obscured by instrumented posterior fusion. There is mild rightneural foraminal stenosis. L5-S1: A discectomy is present. There is no central canal stenosis. Thefacets are obscured by instrumented posterior fusion. There is no neuralforaminal stenosis. IMPRESSION IMPRESSION: 1. Thoracic and lumbar degenerative disc and joint disease as describedabove. Chronic T12 compression fracture with superimposed Schmorl'snode. 2. Partially imaged cervical fusion with apparent elevated signal in themid cervical cord. This could be further evaluated by magnetic resonanceimaging (MRI) of the cervical spine without contrast, if clinicallywarranted. Dr. PATY Stevenson M.D. have personally reviewed and interpreted thisexamination/study. This report was electronically signed by PATY GOODE M.D. on 02/10/20176:49 AM . Carlos Manriquez MD MR ORDERABLES * MRI THORACIC SPINE WO CONTRAST (02/09/2017 3:13 PM CDT) Anatomical Region Laterality Modality Chest Other Impressions 02/10/2017 6:49 AM CDT IMPRESSION: 1. Thoracic and lumbar degenerative disc and joint disease as described above. Chronic T12 compression fracture with superimposed Schmorl's node. 2. Partially imaged cervical fusion with apparent elevated signal in the mid cervical cord. This could be further evaluated by magnetic resonance imaging (MRI) of the cervical spine without contrast, if clinically warranted. I, Dr. PATY GOODE M.D. have personally reviewed and interpreted this examination/study. This report was electronically signed by PATY GOODE M.D. ??on 02/10/2017 6:49 AM . Narrative 02/10/2017 6:49 AM CDT EXAMINATION: Magnetic resonance imaging (MRI) of the thoracic and lumbar spine without contrast HISTORY: Thoracolumbar pain TECHNIQUE: MRI of the thoracic and lumbar spine was performed without contrast according to standard protocol. FINDINGS: Comparison is made with a study from 06 February 2017. 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 Thoracic spine: The alignment is normal. There is a chronic nonretropulsed T12 compression fracture with 25 percent height loss anteriorly and a superimposed Schmorl's node. No subchondral marrow edema is identified. There is a hemangioma in the T12 vertebral body. The spinal cord appears normal. There is mild disc bulge at T6-7, T7-8, T8-9, T9-10, T11-T12, and T12-L1. No significant central canal stenosis is identified. The facets appear normal. No neural foraminal stenosis is seen. Trace bilateral pleural effusions are present. Lumbar spine: The alignment is normal. L4-5 and L5-S1 discectomies and L5 laminectomy with instrumented anterior and posterior fusion at these levels obscures the adjacent vertebrae and soft tissues. Noninstrumented vertebral bodies are normal in height with normal marrow signal intensity. The conus medullaris terminates at the level of T12 and the distal spinal cord signal intensity is normal. Noninstrumented intervertebral discs are normal in height. A left renal cyst is present. L1-L2: There is mild disc bulge. There is no central canal stenosis. There is no facet osteoarthritis. There is no neural foraminal stenosis. L2-L3: There is mild disc bulge. There is no central canal stenosis. There is mild bilateral facet osteoarthritis. There is no neural foraminal stenosis. L3-L4: There is diffuse disc bulge. There is mild central canal stenosis. There is mild bilateral facet osteoarthritis. There is mild left neural foraminal stenosis. L4-L5: A discectomy is present. There is no central canal stenosis. The facets are obscured by instrumented posterior fusion. There is mild right neural foraminal stenosis. L5-S1: A discectomy is present. There is no central canal stenosis. The facets are obscured by instrumented posterior fusion. There is no neural foraminal stenosis. Procedure Note Paty Goode MD - 11/09/2017 EXAMINATION: Magnetic resonance imaging (MRI) of the thoracic and lumbarspine without contrast HISTORY: Thoracolumbar pain TECHNIQUE: MRI of the thoracic and lumbar spine was performed withoutcontrast according to standard protocol. FINDINGS: Comparison is made with a study from 06 February 2017. 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 Thoracic spine: The alignment is normal. There is a chronic nonretropulsed T12 compressionfracture with 25 percent height loss anteriorly and a superimposedSchmorl's node. No subchondral marrow edema is identified. There is ahemangioma in the T12 vertebral body. The spinal cord appears normal. There is mild disc bulge at T6-7, T7-8, T8-9,T9-10, T11-T12, and T12-L1. No significant central canal stenosis isidentified. The facets appear normal. No neural foraminal stenosis isseen. Trace bilateral pleural effusions are present. Lumbar spine: The alignment is normal. L4-5 and L5-S1 discectomies and L5 laminectomywith instrumented anterior and posterior fusion at these levels obscuresthe adjacent vertebrae and soft tissues. Noninstrumented vertebral bodiesare normal in height with normal marrow signal intensity. The conus medullaris terminates at the level ofT12 and the distal spinal cord signal intensity is normal. Noninstrumentedintervertebral discs are normal in height. A left renal cyst is present. L1-L2: There is mild disc bulge. There is no central canal stenosis. Thereis no facet osteoarthritis. There is no neural foraminal stenosis. L2-L3: There is mild disc bulge. There is no central canal stenosis. Thereis mild bilateral facet osteoarthritis. There is no neural foraminalstenosis. L3-L4: There is diffuse disc bulge. There is mild central canal stenosis.There is mild bilateral facet osteoarthritis. There is mild left neuralforaminal stenosis. L4-L5: A discectomy is present. There is no central canal stenosis. Thefacets are obscured by instrumented posterior fusion. There is mild rightneural foraminal stenosis. L5-S1: A discectomy is present. There is no central canal stenosis. Thefacets are obscured by instrumented posterior fusion. There is no neuralforaminal stenosis. IMPRESSION IMPRESSION: 1. Thoracic and lumbar degenerative disc and joint disease as describedabove. Chronic T12 compression fracture with superimposed Schmorl'snode. 2. Partially imaged cervical fusion with apparent elevated signal in themid cervical cord. This could be further evaluated by magnetic resonanceimaging (MRI) of the cervical spine without contrast, if clinicallywarranted. I, Dr. PATY GOODE M.D. have personally reviewed and interpreted thisexamination/study. This report was electronically signed by PATY GOODE M.D. on 02/10/20176:49 AM . Carlos Manriquez MD MR ORDERABLES * (ABNORMAL) GLUCOSE ACCUCHECK (02/07/2017 11:12 AM CDT) Only the most recent of136 resultswithin the time period is included. Glucose, Fingerstick 119(H) 70-115mg/d L mg/dL [facility] ([facility]) Comment:Heel Cementer: RUPALI GABRIEL ICA 02/07/2017 11:1 2 AM CDT Nathan Singleton MD LAB - CHEMISTRY [facility] Organization Address City/State/ZIP Co de Phone Number [facility] ([facility]) * XR THORACIC SPINE 2VW (12/20/2016 1:21 PM CDT) Only the most recent of2 resultswithin the time period is included. Anatomical Region Laterality Modality Spine Other Impressions 12/20/2016 2:44 PM CDT Impression: Unchanged mild T12 compression fracture. This report was electronically signed by MOHINDER TAYLOR M.D. ??on 12/20/2016 2:44 PM . Narrative 12/20/2016 2:44 PM CDT Examination: Thoracic spine 2 views History: T12 compression fracture Findings: AP and lateral views of the thoracic spine were performed with comparison made to 10/30/2016. Cervical spine fusion instrumentation is partially imaged. There is unchanged mild T12 compression fracture. There is no new compression fracture. The disc spaces appear preserved. Procedure Note Mohinder Taylor MD - 11/09/2017 Examination: Thoracic spine 2 views History: T12 compression fracture Findings: AP and lateral views of the thoracic spine were performed with comparisonmade to 10/30/2016. Cervical spine fusion instrumentation is partiallyimaged. There is unchanged mild T12 compression fracture. There is no newcompression fracture. The disc spaces appear preserved. IMPRESSION Impression: Unchanged mild T12 compression fracture. This report was electronically signed by MOHINDER TAYLOR M.D. on12/20/2016 2:44 PM . Carlos Manriquez MD DIAGNOSTIC IMAGING O RDERABLES * STONE ANALYSIS QUANT (06/05/2016 1:36 PM CDT) Only the most recent of3 resultswithin the time period is included. Color UA Johnson [facility] ([facility]) Stone Size Comment mm [facility] ([facility]) Comment:Specimen received as fragments. Weight 4.0 mg [facility] ([facility]) Stone Composition Comment [facility] ([facility]) Comment:Percentage (Represen ts the % composition) Calcium Oxalate Dihydrate 10 % [facility] ([facility]) Calcium Oxalate Monohydrate 75 % [facility] ([facility]) Calcium Phosphate 15 % [facility] ([facility]) Nidus No Nidus visualized [facility] ([facility]) Please Note Comment [facility] Comment: Calculi report without photograph will follow via computer, mail, or rice cleaning machine tender delivery. Comment Comment [facility] Comment: Physician questions regarding Calculi Analysis contact [facility] [employer] [facility] at: [phone]. Disclaimer Comment [facility] Comment: This test was developed and its performance characteristics determined by [facility]. It has not been cleared or approved by the Food and Drug Administration. Calculus specimen (specimen) ENTIRE KIDNEY / Unknown 06/05/2016 1:36 PM CDT 06/29/2016 8:40 AM MENDER HAND Narrative [facility] ([place]) - 07/05/2016 11:13 AM MENDER HAND Left kidney stones Performed at: ??[address] ??[id number] Band Head Saw Operator: Sherif Gonzalez MD, Phone: ??[phone] Cassy Flores DO LAB - URINE CHEMIS TRY ORDERABLES Performing Organization Address [facility]/State/[facility] Co de Phone Number [facility] * FL CYSTOGRAM (06/05/2016 1:19 PM CDT) Anatomical Region Laterality Modality Abdomen, Pelvis Other Narrative 06/05/2016 1:19 PM CDT Fluoroscopy was used for this exam. Please see the Operative report. Procedure Note Provider, MD [place] - 11/10/2017 Fluoroscopy was used for this exam. Please see the Operative report. Cassy Flores DO FLUOROSCOPY ORDERA BLES * (ABNORMAL) CREATININE BLOOD - POCT (IP) [facility] (04/05/2016) Creatinine POCT 1.46(A) 0.3 - 1.3 mg/dL [facility] eGFR POCT 39(A) 60 ml/min [facility] 04/05/2016 Cassy Flores DO LAB - POINT OF CAR E ORDERABLES [facility] * LAB MISC TEST (03/08/2016 4:00 PM CDT) [facility] Results SEE SCANNED REPORT [facility] NON INTERF Other (qualifier value) 03/08/2016 4:00 PM CDT 03/09/2016 7:27 AM CDT Narrative [facility] - 03/24/2016 2:27 PM CDT Test Name:->MYCOPLASMA / UREAPLASMA CULTURE REFRIG URINE Reference Lab Info:->[facility] ?[id number] REFRIG URINE Cassy Flores DO LAB SEND OUT [facility] INTERF * EVENT MONITOR (12/03/2015 10:04 AM CDT) Only the most recent of2 resultswithin the time period is included. Narrative [facility] - 12/03/2015 10:04 AM CDT Ivonne J Tom underwent cardiac monitoring with a 30 day event monitor. ??Results are as follows: Quality of Tracings: ??Fair, some baseline artifact present. Rhythm: ??Sinus. Ectopy: ??Rare unifocal PVCs. Symptoms: ??Short of breath, heart racing, which correlated with sinus tachycardia with PVC, rate 115 beats per minute. Lightheaded, which correlated with sinus rhythm with PVC, rate 80 beats per minute. Short of breath, which correlated with sinus rhythm with a rate of 85 beats per minute. Chest pain, which correlated with sinus rhythm with a rate of 85 beats per minute. Please feel free to contact me with any questions, thank you. Procedure Note Provider, MD Alton - 01/18/2018 Ivonne Vera underwent cardiac monitoring with a 30 day event monitor.Results are as follows: Quality of Tracings: Fair, some baseline artifact present. Rhythm: Sinus. Ectopy: Rare unifocal PVCs. Symptoms: Short of breath, heart racing, which correlated with sinustachycardia with PVC, rate 115 beats per minute. Lightheaded, whichcorrelated with sinus rhythm with PVC, rate 80 beats per minute. Short ofbreath, which correlated with sinus rhythm with a rate of 85 beats per minute. Chest pain, which correlated withsinus rhythm with a rate of 85 beats per minute. Please feel free to contact me with any questions, thank you. Serafin Webb CD CARDIAC SERVICES ORD ERABLES Performing Organization Address City/[facility]/ZIP Co de Phone Number [facility] * VITAMIN D 1,25 DIHYDROXY (11/10/2015 8:51 AM CDT) Pathologist [facility] Calcitriol (1,25 di-OH Vit D) 74.4 19.9 - 79.3 pg/mL [facility] ([place]) Blood specimen (specimen) BLOOD SPECIMEN / Unknown 11/10/2015 8:51 AM CDT 11/10/2015 9:13 AM CDT Narrative [facility] ([facility]) - 11/11/2015 3:22 PM CDT Performed at: ??[address] ??[id number] Band Head Saw Operator: Sherif Gonzalez MD, Phone: ??[phone] Maryanne Howard MD LAB - CHEMISTRY OR DERABLES [facility] QlikaALEX) * ENDOSCOPY, COLON, SCREENING (11/04/2015 8:54 AM CDT) Pathologist [facility] Report Endoscopy POC _ Patient Name: Ivonne Vera ? Procedure Date: 11/04/2015 8:54 AM ? Date of : 1955 ? Admit Type: Outpatient Age: 60 ? Gender: Female Attending MD: Maryanne Howard MD _ Procedure: ? Colonoscopy Indications: ? High risk colon cancer surveillance: Personal history of ? colonic polyps, High risk colon cancer surveillance: ? Personal history of non-advanced adenoma Providers: ? Maryanne Howard MD (Doctor), Vilma Casiano RN, Vy ? Deidre Lobster Man Patient Profile: ?? history of cecal adenoma 2011 colonoscopy, ? diarrhea,bloatin g Referring MD: ?Siri Wolfe MD (Referring MD) Medicines: ? Propofol per Anesthesia, lidocaine 2% jelly per rectum Complications: ? No immediate complications. _ Procedure: ? After I obtained informed consent, the scope was passed ? under direct vision. Throughout the procedure, the ? patient's blood pressure, pulse, and oxygen saturations ? were monitored continuously. The Colonoscope was ? introduced through the anus and advanced to the cecum, ? identified by appendiceal orifice and ileocecal valve. The ? colonoscopy was technically difficult and complex due to ? significant looping. Successful completion of the ? procedure was aided by using manual pressure, stiffening ? guidewire and turning patient on back. The patient ? tolerated the procedure well. The quality of the bowel ? preparation was fair. ? Impression: ?- Non-thrombosed internal hemorrhoids found on perianal ? exam. ? - The entire examined colon is normal. Biopsied. ? - Non-bleeding internal hemorrhoids. ? - The examination was otherwise normal on direct and ? retroflexion views. Findings: ? The perianal exam findings include non-thrombosed internal hemorrhoids. ? The colon (entire examined portion) appeared normal. Biopsies for ? histology were taken with a cold forceps from the entire colon for ? evaluation of microscopic colitis. ? Non-bleeding internal hemorrhoids were found during retroflexion. The ? hemorrhoids were small. ? The exam was otherwise without abnormality on direct and retroflexion ? views. _ Recommendation: ?- Discharge patient to home. ? - High fiber diet for the rest of the patient's life as ? patient tolerates. ? - Await pathology results. ? - Repeat colonoscopy in 5 years given history of adenoma ? and fair prep. ? - Return to GI clinic as previously scheduled. ? Procedure Code(s): ? --- Professional --- ? 32632, Colonoscopy, flexible; with biopsy, single or multiple ? --- Technical --- ? 15361, Colonoscopy, flexible; with biopsy, single or multiple Diagnosis Code(s): ? --- Professional --- ? K64.8, Other hemorrhoids ? Z86.010, Personal history of colonic polyps ? --- Technical --- ? K64.8, Other hemorrhoids ? Z86.010, Personal history of colonic polyps CPT copyright 2015 [employer]. All rights reserved. The codes documented in this report are preliminary and upon sanding machine tender review may be revised to meet current compliance requirements. Maryanne Howard MD 11/04/2015 9:31:51 AM Number of Addenda: 0 Note Initiated On: 11/04/2015 8:54 AM Scope Withdrawal Time: 0 hours 13 minutes 43 seconds [facility] 11/04/2015 8:54 AM CDT Maryanne Howard MD GI PROCEDURE ORDER MARCIA Performing Organization Address City/State/[facility] Co de Phone Number [facility] * GROSS + MICRO EXAM (STL) (11/04/2015 8:45 AM CDT) Case Report Surgical Pathology Report ? Case: [id number] ? Authorizing Provider: ??Maryanne Howard MD ?Collected: ? 11/04/2015 08:45 AM ? Ordering Location: ? [facility] ?Received: ?11/04/2015 01:17 PM ? Pathologist: ? Pavel Salas MD ? Specimens: ?? A) - Gastric Biopsy ? B) - Duodenal Biopsy ? C) - Polyp, duodenal polyp ? D) - Colon Biopsy, random colon ? 11/05/2015 9:22 AM CDT [facility] Final Diagnosis 1. Gastric mucosa, biopsy: -- No pathologic diagnosis 2. Duodenum, biopsy: -- No pathologic diagnosis 3. Duodenum, polyp, biopsy: -- Small submucosal lipoma 4. Colon, random biopsy: -- No pathologic diagnosis MGC/alj 11/05/2015 9:22 AM CDT [facility] Gross Description The specimens are received fixed in formalin in four containers for gross and microscopic examination. All containers are labeled with the patient's name Ivonne Vera. Specimen A, gastric biopsy, consists of multiple fragment soft pink-johnson tissue with the greatest dimension of <0.7 cm. Specimens are submitted entirely in A1. Specimen B, duodenal biopsy, consists of multiple fragments of soft pink-johnson tissue with the greatest dimension of <0.5 cm. Specimen C, duodenal polyp biopsy, consists of two fragments of soft pink-johnson tissue with the greatest dimension of 0.4 cm. Specimen is submitted entirely in C1. Specimen D, random colon biopsy, consists of multiple fragment soft pink-johnson tissue with the greatest dimension of 0.3 cm. Specimen is submitted entirely in D1. OA/lv 11/05/2015 9:22 AM CDT [facility] Microscopic Description 1. Sections show fragments of gastric mucosa with no significant pathologic diagnosis. An immunostain for H. pylori is negative. 2. Sections show fragments of duodenal mucosa with no pathologic diagnosis. The villi are normal. 3. Sections show fragments of duodenal mucosa with a small submucosal lipoma. A malignant tumor is not identified. 4. Sections show fragments of colonic mucosa with no pathologic diagnosis. All of the stain(s), control slide(s) and test tissue slide(s) were judged as technically acceptable. [facility]/alj 11/05/2015 9:22 AM CDT [facility] Pathology/Cytology GASTRIC BIOPSY SPECIMEN / Unknown 11/04/2015 8:45 AM CDT 11/04/2015 1:17 PM CDT Miscellaneous samples (specimen) DUODENAL BIOPSY SPECIMEN / Unknown 11/04/2015 8:45 AM CDT 11/04/2015 1:17 PM CDT Miscellaneous samples (specimen) POLYP / Unknown 11/04/2015 8:49 AM CDT 11/04/2015 1:17 PM CDT Miscellaneous samples (specimen) COLONIC BIOPSY SPECIMEN / Unknown 11/04/2015 9:17 AM CDT 11/04/2015 1:17 PM CDT Maryanne Howard MD LAB - PATHOLOGY/CY TOLOGY ORDERABLES [facility] [address] [place] [address] * (ABNORMAL) CULTURE DUODENAL ASPIRATE QUANT (11/04/2015 8:42 AM CDT) Pathologist [facility] Culture 10,000-50,000 CFU/mL Viridans Streptococcus group(A) [facility] 11/07/2015 10:32 AM CDT [facility] Culture <10,000 CFU/mL Diphtheroids(A) [facility] 11/07/2015 10:32 AM CDT [facility] MICRO[facility]OLOGY Microbiology DUODENAL FLUID SPECIMEN / Unknown Collection / Unknown 11/04/2015 8:42 AM CDT 11/04/2015 1:14 PM CDT Maryanne Howard MD LAB - MICROBIOLOGY ORDERABLES Performing Organization Address [facility]/ZIP Co de Phone Number [facility] MICROBIOLOGY [address] [place] [address], [facility] [phone] * GRAM STAIN SMEAR (11/04/2015 8:42 AM CDT) Pathologist [facility] Gram Stain Light Gram positive bacilli 11/05/2015 5:42 AM CDT [facility] MICROBIOLOGY Microbiology DUODENAL FLUID SPECIMEN / Unknown Collection / Unknown 11/04/2015 8:42 AM CDT 11/04/2015 1:14 PM CDT Maryanne Howard MD LAB - MICROBIOLOGY ORDERABLES Performing Organization Address City/[facility]/ZIP Co de Phone Number [facility] MICROBIOLOGY [address] [place] [address], [facility] [phone] * EGD (11/04/2015 8:22 AM CDT) Report Endoscopy POC __ _ Patient Name: Ivonne Vera ? Procedure Date: 11/04/2015 8:22 AM ? Date of : 1955 ? Admit Type: Outpatient Age: 60 ? Gender: Female Attending MD: Maryanne Howard MD __ _ Procedure: ? Upper GI endoscopy Indications: ? Dyspepsia, Heartburn, Diarrhea Providers: ? Maryanne Howard MD (Doctor), Vilma Casiano RN, Vy ? Deidre, Lobster Man Referring MD: ?iSri Wolfe MD (Referring MD) Medicines: ? Propofol per Anesthesia Complications: ? No immediate complications. __ _ Procedure: ? After obtaining informed consent, the endoscope was passed ? under direct vision. Throughout the procedure, the ? patient's blood pressure, pulse, and oxygen saturations ? were monitored continuously. The Endoscope was introduced ? through the mouth, and advanced to the second part of ? duodenum. The upper GI endoscopy was accomplished with ? ease. The patient tolerated the procedure well. ? Impression: ?- Esophagogastric landmarks identified. ? - Normal esophagus. ? - Nodular mucosa in the gastric body. Biopsied. ? - A single duodenal polyp. Biopsied. Not removed as ? suspect submucousal. ? - Biopsies were taken with a cold forceps for evaluation ? of celiac disease. ? - Fluid aspiration was performed. Findings: ? Esophagogastric landmarks were identified: the Z-line was found at 37 ? cm, the gastroesophageal junction was found at 37 cm and the site of ? hiatal narrowing was found at 37 cm from the incisors. ? The examined esophagus was normal. ? Diffuse nodular mucosa was found in the gastric body. Biopsies were ? taken with a cold forceps for histology from body, antrum, and incisura. ? The cardia and gastric fundus were normal on retroflexion. ? A single 13 mm sessile polyp with no bleeding was found in the second ? part of the duodenum. It appeared submucousal and easily manipulated ? with the biopsy forceps but no clear pillow sign. Biopsies were taken ? with a cold forceps for histology. ? Biopsies for histology were taken with a cold forceps in the duodenal ? bulb, in the first part of the duodenum and in the 2nd part of the ? duodenum for evaluation of celiac disease. Fluid aspiration for cytology ? was performed in the 3rd part of the duodenum. __ _ Recommendation: ?- Discharge patient to home (ambulatory). ? - Await pathology results. ? - Take prescribed proton pump inhibitor or H2 sadie ? (antacid) medications 30 - 60 minutes before meals. ? - Return to GI clinic as previously scheduled. ? Procedure Code(s): ? --- Professional --- ? 63253, Esophagogastroduode noscopy, flexible, transoral; with biopsy, ? single or multiple ? --- Technical --- ? 75590, Esophagogastroduode noscopy, flexible, transoral; with biopsy, ? single or multiple Diagnosis Code(s): ? --- Professional --- ? K31.9, Disease of stomach and duodenum, unspecified ? K31.7, Polyp of stomach and duodenum ? K30, Functional dyspepsia ? R12, Heartburn ? R19.7, Diarrhea, unspecified ? --- Technical --- ? K31.9, Disease of stomach and duodenum, unspecified ? K31.7, Polyp of stomach and duodenum ? K30, Functional dyspepsia ? R12, Heartburn ? R19.7, Diarrhea, unspecified CPT copyright 2015 [employer]. All rights reserved. The codes documented in this report are preliminary and upon sanding machine tender review may be revised to meet current compliance requirements. ____ Maryanne Howard MD 11/04/2015 9:32:20 AM Number of Addenda: 0 Note Initiated On: 11/04/2015 8:22 AM [facility] 11/04/2015 8:22 AM CDT Maryanne Howard MD GI PROCEDURE ORDER MARCIA Performing Organization Address [facility] Co de Phone Number [facility] * GLUCOSE - POINT OF CARE (AMB) [facility] (10/06/2015 11:20 AM MENDER HAND) Only the most recent of4 resultswithin the time period is included. Miriam Grajeda MD LAB - POINT OF CARE ORDERABLES Performing Organization Address [facility] Co de Phone Number [facility] * NM LUNG VENT AND PERFUSION (04/23/2015 3:33 PM CDT) Anatomical Region Laterality Modality Lung, Chest Other Impressions 04/23/2015 4:40 PM CDT Impression: No evidence of segmental or subsegmental perfusion defects or pulmonary embolism. This report was approved ??by Divine Lai M.D. ?? on 04/23/2015 4:37 PM . I, Dr. CONY REECE, D.O. have personally reviewed and interpreted this examination/study. This report was electronically signed by CONY REECE D.O. ??on 04/23/2015 4:40 PM . Narrative 04/23/2015 4:40 PM CDT Procedure: Ventilation and Perfusion (V/Q) Lung ??Scan History: 59 year old female with history of hyperlipidemia, enteric, diabetes, C-spine fusion, C-spine injury, parkinsonism, asthma, hypertension, and chronic rhinitis. Patient has a history of dyspnea on exertion. 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 Technique: 16 mCi of Xe-133 was administered via inhalation route. Single breath and equilibrium images were obtained during radioxenon inhalation in the posterior projection. Early and delayed washout images were obtained in posterior projection. Subsequently, 5.5 mCi Tc-99m MAA was administered IV in the left forearm. Multiple planar perfusion images of the lungs were obtained in the anterior, posterior, and four oblique views. Findings: No prior studies are available for comparison.. Chest radiograph from 08/12/2014 was reviewed. Ventilation scan shows normal tracer distribution during xenon entry and equilibrium phase within the lung. The early and delayed washout phases reveal delayed gas washout in the lower right lung, the is correlated with asthma history. Multiple planar perfusion images of the lungs reveal mildly heterogeneous tracer distribution to both lungs with no segmental-appearing defects to raise suspicion for pulmonary embolism. Procedure Note Cony Reece, DO - 11/10/2017 Procedure: Ventilation and Perfusion (V/Q) Lung Scan History: 59 year old female with history of hyperlipidemia, enteric,diabetes, C- spine fusion, C-spine injury, parkinsonism, asthma,hypertension, and chronic rhinitis. Patient has a history of dyspnea onexertion. 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 Technique: 16 mCi of Xe-133 was administered via inhalation route. Singlebreath and equilibrium images were obtained during radioxenon inhalationin the posterior projection. Early and delayed washout images wereobtained in posterior projection. Subsequently, 5.5 mCi Tc-99m MAA was administered IV in the left forearm.Multiple planar perfusion images of the lungs were obtained in theanterior, posterior, and four oblique views. Findings: No prior studies are available for comparison.. Chest radiographfrom 08/12/2014 was reviewed. Ventilation scan shows normal tracer distribution during xenon entry andequilibrium phase within the lung. The early and delayed washout phasesreveal delayed gas washout in the lower right lung, the is correlated withasthma history. Multiple planar perfusion images of the lungs reveal mildly heterogeneoustracer distribution to both lungs with no segmental-appearing defects toraise suspicion for pulmonary embolism. IMPRESSION Impression: No evidence of segmental or subsegmental perfusion defects or pulmonaryembolism. This report was approved by Divine Lai M.D. on 04/23/2015 4:[address] CONY Stevenson D.O. have personally reviewed and interpreted thisexamination/study. This report was electronically signed by CONY REECE D.O. on 04/23/20154:40 PM . Allen Washburn MD NM ORDERABLES * XR TOE LEFT 2VW OR MORE (03/08/2015 4:25 PM CDT) Anatomical Region Laterality Modality Ankle / Foot Other Impressions 03/09/2015 8:40 AM CDT Impression: No acute osseous injury. Widened second distal interphalangeal joint, nonspecific. Injury and effusion are considerations Report dictated by Jovany Casper M.D. (resident). Dr. TETO Stevenson M.D. have personally reviewed and interpreted this examination/study. This report was electronically signed by TETO TRENT M.D. ??on 03/09/2015 8:40 AM . Narrative 03/09/2015 8:40 AM CDT Exam: Left toe, 4 views Date: 03/08/2015 4:25 PM History: Toenail injury injury, suspect fracture Findings: AP, lateral, and oblique views of the left second digit are obtained without comparison. The osseous architecture and density is normal. There is widening of the second distal interphalangeal joint. The joint spaces are otherwise maintained. No acute fracture is identified. The second toenail is absent. Procedure Note Teto Trent MD - 11/10/2017 Exam: Left toe, 4 views Date: 03/08/2015 4:25 PM History: Toenail injury injury, suspect fracture Findings: AP, lateral, and oblique views of the left second digit are obtainedwithout comparison. The osseous architecture and density is normal. Thereis widening of the second distal interphalangeal joint. The joint spacesare otherwise maintained. No acute fracture is identified. The second toenail is absent. IMPRESSION Impression: No acute osseous injury. Widened second distal interphalangeal joint, nonspecific. Injury andeffusion are considerations Report dictated by Jovany Casper M.D. (resident). I, Dr. TETO TRENT M.D. have personally reviewed and interpreted thisexamination/study. This report was electronically signed by TETO TRENT M.D. on03/09/2015 8:40 AM . Kevin Huynh ASTRONAUT MISSION SPECIALIST-WINDOWS AND DOORS INSTALLER DIAGNOSTIC IMAGI NG ORDERABLES * COMPLETE PFT W/WO BRONCHODILATOR (11/18/2014 11:03 AM CDT) Impressions [facility] - 11/18/2014 11:03 AM CDT [facility] DEPARTMENT OF PULMONARY, CRITICAL CARE AND SLEEP MEDICINE PULMONARY FUNCTION TESTS Ivonne Vera 12/10/2014 INTERPRETATION Please see technologist's comments mentioned above. SPIROMETRY: Forced vital capacity is normal. ??FEV1 is normal. FEV1/FVC ratio is normal. The inspection of the patient's flow-volume loops shows normal configuration of the inspiratory and expiratory limbs. LUNG VOLUMES: Lung volumes by body plethysmography are within normal limits. DLCO: Diffusing capacity unadjusted for Hb and COHb is within normal limits. AIRWAY RESISTANCE: The airway resistance and the specific conductance are normal. IMPRESSION: 1. Normal Pulmonary Function Test 2. No comparison study is available. Brandon Thomas MD I have reviewed this study and agree with the interpretation by Dr. Thomas. Allen Washburn M.D. Advertising Teacher of Internal Medicine Division of Pulmonary, Critical Care and Sleep Medicine [facility] Narrative Procedure Note Provider, MD [place] - 01/18/2018 IMPRESSION [facility] DEPARTMENT OF PULMONARY, CRITICAL CARE AND SLEEP MEDICINE PULMONARY FUNCTION TESTS Ivonne Vera 12/10/2014 INTERPRETATION Please see technologist's comments mentioned above. SPIROMETRY: Forced vital capacity is normal. FEV1 is normal. FEV1/FVC ratio is normal. The inspection of the patient's flow-volume loops shows normal configuration of the inspiratory and expiratory limbs. LUNG VOLUMES: Lung volumes by body plethysmography are within normal limits. DLCO: Diffusing capacity unadjusted for Hb and COHb is within normal limits. AIRWAY RESISTANCE: The airway resistance and the specific conductance are normal. IMPRESSION: 1. Normal Pulmonary Function Test 2. No comparison study is available. Brandon Thomas MD I have reviewed this study and agree with the interpretation by Dr. Thomas. Allen Washburn M.D. Advertising Teacher of Internal Medicine Division of Pulmonary, Critical Care and Sleep Medicine [facility] Siri Wolfe MD RESPIRATORY THERAPY ORDERABLES Performing Organization Address [facility] Co de Phone Number [facility] * LITHIUM LEVEL (10/01/2014 9:10 PM MENDER HAND) Only the most recent of14 resultswithin the time period is included. [place], trough 0.6 0.5 - 1.5 mmol/L [facility] Blood specimen (specimen) BLOOD SPECIMEN / Unknown 10/01/2014 9:10 PM MENDER HAND 10/01/2014 10:28 PM MENDER HAND Víctor Lacey MD LAB - CHEMISTRY O RDERALIDA Performing Organization Address [facility] de Phone Number [address] [phone] * CK + CKMB PANEL (2014 4:35 AM MENDER HAND) CK Total 69 30 - 200 Units/L [facility] CK-MB 0.9 0.0 - 6.6 ng/mL [facility] Blood specimen (specimen) BLOOD SPECIMEN / Unknown 2014 4:35 AM MENDER HAND 2014 8:44 AM MENDER HAND Lisa Tavares MD LAB - CHEMISTRY [facility] Performing Organization Address [facility] [place] [address], [facility] [phone] * INFLUENZA A+B PCR (08/12/2014 3:03 PM MENDER HAND) Influenza A Non subtyped Not Detected Not Detected [facility] Influenza B Not Detected Not Detected [facility] Respiratory Syncytial Virus Not Detected Not Detected [facility] RSV B Not Detected Not Detected [facility] Nasopharyngeal NASOPHARYNGEAL SWAB / Unknown 08/12/2014 3:03 PM MENDER HAND 08/12/2014 3:06 [address]END[address] [facility] - 08/12/2014 6:32 PM MENDER HAND Assay performed by [employer]. NOTE: ??Negative results for Influenza A, Influenza B or RSV do not preclude influenza virus or RSV infection and should not be used as the sole basis for diagnosis, treatment or patient management decisions. Historical Provider LAB - MICROBIOLOG Y ORDERABLES Performing Organization Address [facility] Co de Phone Number [address] [phone] * INFLUENZA A+B ANTIGEN RAPID (08/12/2014 3:03 PM MENDER HAND) Influenza A Rapid Test Negative Negative [facility] Influenza B Rapid Test Negative [facility] Comment:Unable to determine, confirmatory testing in progress. Nasopharyngeal SPECIMEN FROM NASOPHARYNGEAL STRUCTURE / Unknown 08/12/2014 3:03 PM MENDER HAND 08/12/2014 3:52 [address] [facility] - 08/12/2014 3:57 PM MENDER HAND Specimen Type->Nasopharyngeal Paul Ashraf MD LAB - MICROBIOLOGY O RDERABLES Performing Organization Address [facility]/[place] [address], [facility] [phone] * XR CHEST 2VW (08/12/2014 1:15 PM MENDER HAND) Only the most recent of2 resultswithin the time period is included. Anatomical Region Laterality Modality Chest Other Impressions 08/12/2014 4:14 PM MENDER HAND Impression: No acute pulmonary process. Report dictated by Dorian Blunt MD (resident). This report was approved ??by Dorian Blunt ?? on 08/12/2014 2:[address] Dom Stevenson M.D. have personally reviewed and interpreted this examination/study. This report was electronically signed by Dom BENITEZ M.D. ??on 08/12/2014 4:14 PM . Narrative 08/12/2014 4:14 PM MENDER HAND Exam: XR CHEST PA AND LATERAL Exam Date: 08/12/2014 1:15 PM History: COUGH FEVER Comparison: Chest radiograph dated 09/06/2013. Findings: There is no consolidation, pleural effusion or pneumothorax. The cardiac and mediastinal silhouettes are normal. Cervical spinal fusion hardware is partially imaged. Procedure Note Farhana Benitez MD - 11/10/2017 Exam: XR CHEST PA AND LATERAL Exam Date: 08/12/2014 1:15 PM History: COUGH FEVER Comparison: Chest radiograph dated 09/06/2013. Findings: There is no consolidation, pleural effusion or pneumothorax. The cardiacand mediastinal silhouettes are normal. Cervical spinal fusion hardware ispartially imaged. IMPRESSION Impression: No acute pulmonary process. Report dictated by Dorian Blunt MD (resident). This report was approved by Dorian Blunt on 08/12/2014 2:[address] Dom Stevenson M.D. have personally reviewed and interpreted thisexamination/study. This report was electronically signed by Dom BENITEZ M.D. on08/12/2014 4:14 PM . Historical Provider MD DARA Puga ORDERABLES * IRON BLOOD (08/10/2014 12:25 PM MENDER HAND) Only the most recent of2 resultswithin the time period is included. Iron 41 40 - 150 mcg/dL [facility] Blood specimen (specimen) BLOOD SPECIMEN / Unknown 08/10/2014 12:25 PM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 11/07/2012 7:46 AM CDT Specimen A: Type->Shave ?Site->central upper back ?History->4mm soft exophytic pink papule with history of irritation ?Impression->inflamed nevus vs acrochordon r/o BCC ?Check Margins:->N/A ?Prior Biopsy->N/A Daryl Gallardo MD LAB - PATHOLOGY/CYTO LOGY ORDERABLES [facility] [address] [facility] [facility] [place] [address], [facility] [phone] * ECHO DOPPLER ONLY (07/30/2012 12:00 AM MENDER HAND) Anatomical Region Laterality Modality Other 07/30/2012 Kerwin Cedillo MD ECHOCARDIOGRAPHY RAD IANT * HOLTER MONITOR (07/12/2012 7:50 AM MENDER HAND) Narrative [facility] - 07/12/2012 7:50 AM MENDER HAND Ivonne Vera underwent cardiac monitoring with a 24 hour Holter. ??Results are as follows: Rhythm: ??Sinus rhythm, sinus bradycardia, sinus tachycardia Rates: ??57-117 Ectopy: ??Rare ventricular and atrial premature complexes Symptoms: ??Patient reported two episodes of shortness of breath and palpitations, both episodes correlated with sinus rhythm, rate in 70's, and no ectopy. Please feel free to contact me with any questions, thank you. Procedure Note Provider, MD [place] - 01/18/2018 Ivonne Vera underwent cardiac monitoring with a 24 hour Holter. Resultsare as follows: Rhythm: Sinus rhythm, sinus bradycardia, sinus tachycardia Rates: 57-117 Ectopy: Rare ventricular and atrial premature complexes Symptoms: Patient reported two episodes of shortness of breath andpalpitations, both episodes correlated with sinus rhythm, rate in 70's,and no ectopy. Please feel free to contact me with any questions, thank you. Serafin Webb CD CARDIAC SERVICES ORD ERABLES [facility] * NM BRAIN IMAGING SPECT (01/18/2012 5:48 PM CDT) Anatomical Region Laterality Modality Head Other Impressions 01/19/2012 12:43 PM CDT Impression: Abnormal DaTscan study with mild-moderately decreased uptake by the bilateral putamens, suspicious for Parkinsonian's syndrome. Narrative 01/19/2012 12:43 PM CDT Dopamine transporter (DaTscan) brain SPECT Agent: 5.1 mCi I-123 Ioflupane (DaTscan) administered IV in the left AC. History: Tremor Procedure: 30 minutes after oral administration of SSKI for thyroid blockade, 5.1 mCi I-123 Ioflupane was administered intravenously. Three hours post administration tomographic whole brain SPECT imaging was performed. Findings: These images demonstrate symmetric mild-moderately decreased uptake by the bilateral putamens. The tracer uptake within the caudate nuclei is normal. Procedure Note Tony Cruz MD - 11/11/2017 Dopamine transporter (DaTscan) brain SPECT Agent: 5.1 mCi I-123 Ioflupane (DaTscan) administered IV in the left AC. History: Tremor Procedure: 30 minutes after oral administration of SSKI for thyroidblockade, 5.1 mCi I-123 Ioflupane was administered intravenously. Threehours post administration tomographic whole brain SPECT imaging wasperformed. Findings: These images demonstrate symmetric mild-moderately decreased uptake by thebilateral putamens. The tracer uptake within the caudate nuclei is normal. IMPRESSION Impression: Abnormal DaTscan study with mild-moderately decreased uptake by thebilateral putamens, suspicious for Parkinsonian's syndrome. Connor Higgins MD NM ORDERABLES * PATHOLOGY REPORTS - HPF HISTORICAL (01/31/2011 2:46 PM CDT) Only the most recent of2 resultswithin the time period is included. 01/31/2011 2:[address] [facility] - 01/31/2011 2:46 PM CDT Kary Currie MD LAB - PATHOLOGY/CY TOLOGY ORDERABLES [facility] * NEURONAL NUCLEAR ANTIBODY IGG (01/24/2011 12:20 PM CDT) FREDDIE-1 (Anti-Hu) Negative Negative [facility] FREDDIE-2 (Anti Ri) Negative Negative [facility] Comment: TEST INFORMATION: Neuronal Abs (Hu,Ri,Yo,Amphiphysin) IgG, by Immunoblot Anti-Hu, type I anti-neuronal nuclear (FREDDIE-1) is associated with small cell lung cancer. Anti-Ri, type II anti-neuronal nuclear (FREDDIE-2) is associated with neuroblastoma (children) and fallopian tube or breast cancer (adults). Anti-Yo, anti-purkinje cell cytoplasmic antibodies (PCCA or DIRECTOR PRINT-1) is associated with ovarian and breast carcinomas. The presence of one or more of these antibodies supports the clinical diagnosis of paraneoplastic syndrome and leads to a focused search for underlying neoplasm. These markers aid in the discrimination between true paraneoplastic disorders and other inflammatory disorders of the nervous system. Amphiphysin antibodies are present in about 5 percent of patients with stiff person syndrome and variably in other paraneoplastic neurological syndrome (PNS) cases. Amphiphysin antibodies are mostly associated with small cell lung cancer (SCLC) and breast tumors. This test uses a kit designated by the gear technician as for research use, not for clinical use. The performance characteristics of this test were validated by [employer]. The U.S. Food and Drug Administration (FDA) has not approved or cleared this test. The results are not intended to be used as the sole means for clinical diagnosis or patient management decisions. [facility] is authorized under Clinical Laboratory Improvement Amendments (CLIA) and by all states to perform high-complexity testing. Anti-Yo Antibody Negative Negative [facility] Amphiphysin Negative Negative [facility] Serum 01/24/2011 12:2 0 PM CDT 01/24/2011 1:[address] [facility] - 01/27/2011 3:23 PM CDT Preferred Lab:->[facility] Connor Higgins MD LAB - SEROLOGY ORDER MARCIA Performing Organization Address City/[facility]/ZIP Co de Phone Number [address] [phone] * GLUTAMIC ACID DECARBOXYLASE (AMISH) ANTIBODY (01/24/2011 12:20 PM CDT) Glutamic Acid Decarboxylase Antibody < 1.0 0.0 - 1.5 U/mL [facility] Comment: Performed at: ?? - [facility] ??[id number] Band Head Saw Operator: Sherif Gonzalez MD, Phone: ??[phone] 01/24/2011 12:2 0 PM CDT 01/24/2011 1:14 PM CDT Connor Higgins MD LAB - SEROLOGY ORDER MARCIA Performing Organization Address City/[facility]/ZIP Co de Phone Number [address] [phone] * PATHOLOGY/GENETICS HISTORICAL-ONBASE (11/01/2010) Only the most recent of2 resultswithin the time period is included. 11/01/2010 Siri Wolfe MD LAB - CHEMISTRY ORDE SELENA Performing Organization Address [facility] Co de Phone Number [facility] * MICROALBUMIN URINE RANDOM (08/01/2010 11:24 AM MENDER HAND) Albumin Random Urine < 0.3 mg/dL [facility] Comment:REFERENCE RANGE: NON E ESTABLISHED FOR RANDOM URINE SPECIMENS. 08/01/2010 11:2 4 AM [facility] 08/01/2010 12:07 PM MENDER HAND Víctor Lacey MD LAB - URINE CHEMI STRY ORDERABLES Performing Organization Address [facility] de Phone Number [address] [phone] * RPR (10/26/2009 12:16 PM CDT) RPR NONREACTIVE NONREACTIVE [facility] Venous blood specimen (specimen) 10/26/2009 12:16 PM CDT 10/26/2009 1:[address] [facility] - 10/27/2009 4:03 PM CDT Preferred Lab:->[facility] Marilyn Meza MD LAB - CHEMISTRY ORD MARYCARMEN Performing Organization Address [facility] Co de Phone Number [address] [phone] * HIV-1 ANTIBODY (10/26/2009 12:16 PM CDT) HIV Antibody NON REACTIVE NONREACTIVE [facility] Comment: ? ATTENTION ANY TELEPHONE INQUIRIES REGARDING THIS TEST RESULT MUST BE DIRECTED TO THE CORE LAB CHEMISTRY DEPARTMENT AT [phone], SUNDAY-SUNDAY BETWEEN THE HOURS OF [phone] AND [phone]. 10/26/2009 12:1 6 PM CDT 10/26/2009 1:23 PM CDT Marilyn Meza MD LAB - CHEMISTRY ORD ERABLES [facility] [address] [place] [address], [facility] [phone] Care Teams Dumper Operator Relationship Specialty Start Date End Date Jen Kam, ASTRONAUT [employer] SPECIALIST-WINDOWS AND DOORS INSTALLER [address] [facility] [address] [place] [phone] PCP - General Nurse Practitioner 11/09/21 Jose Elias Samaniego, RN 06/04/17 Erich Huggins MD [address] [facility] [address] [place] [address] Cardiology 01/14/22 Abigail Thibodeaux MD [address] [place] [address] Psychiatry 01/14/22 Alen Cox MD [address] [facility] [address], [facility] [place] [address] Urology 01/14/22 Mindy Salgado, PA-C [address] [place] [phone] Physician Camp Dishwasher Gastroenterology 01/14/22 Connor Higgins MD [address] [place] [phone] Neurology 01/14/22
--- OUTSIDE RECORDS SUMMARY | 2024-09-04 18:30 | XMS_ITS | Referral Summary ---
Author Organization [facility] Address [address] [place] [address] Care Team Providers Care Calender Machine Operator Name Role Phone Jose Elias Samaniego RN Unavailable Unavailab Jen Toro DIRECT MARKETING INTERN-INSURANCE LICENSING SUPERVISOR Primary Care Provider Pedro Cordero MD Unavailable [phone] Abigail Thibodeaux MD Unavailable Alen Cox MD Unavailable Mindy Salgado PA-C Unavailable [phone] Connor Higgins MD Unavailable Source Comments [facility],non-owned Affiliates and Associated Physician Practices is amultiple site organization consisting of ambulatory clinics and hospital sitesin [place], [place], [place] and [place]. This disclosure is being madepursuant to the Care Everywhere program and may not contain all information available regarding this patient. Last updated 18.[facility] Encounters Date Type Department Care Team Description 09/04/2024 Orders Only [facility] - Internal Medicine [address] [place] [id number] Jen Kam, DIRECT MARKETING INTERN-INSURANCE LICENSING SUPERVISOR 09/04/2024 Orders Only [facility] Medicine [address] [place] [address] Eddy Jen D, DIRECT MARKETING INTERN-INSURANCE LICENSING SUPERVISOR 06/11/2024 Travel 06/11/2024 12:15 PM CDT Office Visit [facility] - V[facility] [address] [facility] [place] [address] Yudith Rodriguez MD Bilateral carotid artery stenosis (Primary Dx) 06/11/2024 11:00 AM CDT - 06/11/2024 11:59 PM CDT Hospital Encounter [facility] [address] [place] [address] Yudith Rodriguez MD Discharge Disposition: Home or Self Care from Last 3 Months Allergies Active Allergy Reactions Criticality Noted Date [...] without long-term current use of insulin (HCC) Use as directed. 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, without long-term current use of insulin (HCC) PEN NEEDLE USED FOR SUB-Q INJECTION 100 [...] failure,Paroxysmal atrial fibrillation (HCC),Coronary artery disease involving apache coronary artery of apache heart, unspecified whether angina present,TIA (transient ischemic attack),Atypical atrial flutter (HCC),Atrial flutter, unspecified type (HCC),LVH (left ventricular hypertrophy) due to hypertensive disease, without heart failure,High risk medications (not anticoagulants) long-term use Take 1 (one) tablet by mouth once daily 30 tablet 11 4 Active estradiol (Estrace) 0.1 MG/GM vaginal cream Insert 2 g into the vagina once daily 42.5 g 4 Active ascorbic acid (Vitamin C) 500 [...] g 1 4 Active saline nasal spray (Dobbins; Baby [place]) 0.65 % nasal spray Mar[place] 1 (one) spray into each nostril every [...] MOUTH ONCE DAILY 90 tablet 4 02/05/20 Active phenazopyridine (Pyridium) 200 MG tablet TAKE 1 TABLET (=200MG) BY MOUTH 3 TIMES A DAY FOR PAINFUL URINATION 4 Active fluconazole (DIFLUCAN) 150 MG tablet Take 1 tablet by mouth once for 1 dose 1 tablet 9 09/04/19 Discontinu ed(List Clean-Up) cefpodoxime (VANTIN) 200 MG tablet Take 1 tablet by mouth every 12 hours for 5 days 10 tablet 9 09/04/19 Discontinu ed(List Clean-Up) fluconazole (DIFLUCAN) 150 MG tablet Take 1 tablet by mouth once for 1 dose 1 tablet 9 09/04/19 Discontinu ed(List Clean-Up) cefpodoxime (VANTIN) 200 MG tabletIndications:C omplicated Urinary Tract Infection,verified with patient and lipstick molder that pt can take cefpodoxime, [facility] 15 mins observation Take 1 (one) tablet by mouth 2 times daily for 5 days Reasons: Complicated Urinary Tract Infection, verified with patient and lipstick molder that pt can take cefpodoxime, [facility] with 15 mins observation 20 tablet 1 [...] 4 09/04/19 Discontinu ed(List Clean-Up) nystatin (Mycostatin) 028277 UNIT/ML suspension 4 09/04/19 Discontinu ed(List Clean-Up) furosemide (Lasix) 20 MG tablet TAKE 1 TABLET (=20MG) BY MOUTH EVERY DAY FOR FLUID RETENTION X 5 DAYS 4 09/04/19 Discontinu ed(List Clean-Up) nitrofurantoin macrocrystal (Macrodantin) 100 MG capsule Take 1 (one) capsule by mouth 4 09/04/19 Discontinu ed(List Clean-Up) methenamine hippurate (Hiprex) 1 GM tablet TAKE 1 TABLET (=1GRAM) BY MOUTH TWICE A DAY FOR URINARY TRACT INFECTION X 5 DAYS 4 09/04/19 Discontinu ed(List Clean-Up) Active Problems Problem Noted [...] bronchit is type 11/24/2022 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 Does endorse palpitations with activity, HR in the 70s, will increase BB to 100mg BID. Assessment & Plan (09/02/2021 8:42 AM SUPERVISOR ORDNANCE TRUCK INSTALLATION): Eliquis and BB. Does endorse palpitations with increase SPB. HR in the 50-60s will not further increase BB at this time. Assessment & Plan (06/30/2021 4:55 PM SUPERVISOR ORDNANCE TRUCK INSTALLATION): Eliquis and BB. Denies reoccurrence. Urinary tract [...] 10/09/2018 Assessment & Plan (06/30/2021 4:56 PM SUPERVISOR ORDNANCE TRUCK INSTALLATION): I have reached out to ID for [...] 01/11/2015 Assessment & Plan (10/04/2021 11:04 AM SUPERVISOR ORDNANCE TRUCK INSTALLATION): SBP uncontrolled. Resumed Triamterene 50mg BID previously will continue HCTZ 25mg Daily and Metoprolol will increase to 100mg BID for HTN and palpations. BMP stable. Assessment & Plan (09/02/2021 8:39 AM SUPERVISOR ORDNANCE TRUCK INSTALLATION): SBP uncontrolled. Resume Triamterene 50mg BID continue HCTZ 25mg Daily and Metoprolol 50mg BID. BMP in one week to ensue creatine is stable. Triamterene was stopped last fall in the setting and dehydration, diarrhea dn LUZ. Assessment & Plan (06/30/2021 4:54 PM SUPERVISOR ORDNANCE TRUCK INSTALLATION): Stable off HCTZ continue metoprolol 50mg BID. Would address UTI before resuming HCTZ. BP controlled in clinic, BP log and [employer] message in 1-2 weeks. Assessment & Plan [...] manifestations 06/04/2013 Coronary artery disease invo lving apache coronary artery of apache heart 11/04/2012 Urge incontinence 03/15/2011 Rectocele 03/15/2011 [...] colon biopsies done by Dr. Howard at [place] = no pathological diagnosis 11/04/2015 Duodenal aspirate = 10,000 - 50,000 CFU of Viridans Strep and < 10,000 Diptheroids Dyspnea on exertion 04/01/2015 06/09/20 18 Asthma exacerbation 08/12/2014 01/10/20 18 Chronic rhinitis 10/30/2013 05/31/2018 Flank pain 03/07/2013 03/07/2018 Recurrent UTI 03/15/2011 01/17/2019 Incomplete bladder emptying 03/15/2011 02/15/2019 Chronic traumatic pain 04/08/200802/15 Overview (12/26/2017): Overview: Neck pain due to fall/fracture. C spine fusion '07. High cholesterol 04/08/2008 09/02/2020 Diarrhea 05/13/2021 Immunizations Name Administration Dates Next Due INFLUENZA VACCINE, TRIV. (AF LURIA, FLUZONE TRIVALENT; 6MO+) (IIV3) 05/27/2008 COVID PFIZER BIVALENT 12Y+ 30mcg/0.3ML 02/26/2023 Covid Pfizer primary monoval ent 12+ yr 0.3mL Purple cap 07/19/2021,11/12/2020,10/20/2020,2020 DT (AGE 0-7) 2002,1992 FLU VACCINE TRI IIV3 SPLIT P F IM (FLUVIRIN) 06/09/2016 HEP B VACCINE, ADULT 3 DOSE 07/14/2022,,01/12/2022 INFLUENZA A [id number] VACCINE 08/30/2009 INFLUENZA VACCINE 05/08/2011,08/01/2010,08/30/19 10 INFLUENZA [...] Zoster Hzv Vacc Recombinant Inj Im 02/26/2023, Social History Tobacco Use Types Packs/Day Years Used Date Smoking Tobacco: Former Cigarettes 30 1 976 - 2006 Smokeless Tobacco: [...] Recorded Patient Health Questionnaire-2 Score 0 12/05/2023 [facility] - Occupational Stress Questionnaire Answer Date Recorded [...] place to sleep or slept in a correction (including now)? No 02/20/2023 Sex and Gender Information Value Date Recorded Sex Assigned at Female 10/22/2021 5:54 AM SUPERVISOR ORDNANCE TRUCK INSTALLATION Gender Identity Female 10/22/2021 5:54 AM SUPERVISOR ORDNANCE TRUCK INSTALLATION Sexual Orientation Not on file Last Filed Vital Signs Vital Sign Reading Time Taken Comments Blood Pressure 149/86 06/11/2024 12:39 PM CDT Pulse 96 06/11/2024 12:39 PM CDT Temperature 36.6 ??C (97.8 ??F) 06/11/2024 12:39 PM C DT Respiratory Rate 16 02/28/2024 9:48 AM CDT Oxygen Saturation 98% 02/28/2024 9:48 AM CDT Inhaled Oxygen Concentration 25% 08/21/2022 1 2:31 PM SUPERVISOR ORDNANCE TRUCK INSTALLATION Weight 74.4 kg (164 lb) 06/11/2024 12:39 PM CDT Height 170.2 cm (5' 7 ) 06/11/2024 12:39 PM CDT Body Mass Index 25.69 06/11/2024 12:39 PM CDT Functional Status Functional Status Response Date of Assess ment Is person deaf or have serious hearing difficult y? No 02/05/2024 Is person blind or have serious difficulty seein g? No 02/05/2024 Does person have serious dif ficulty walking/climbing stairs? No 02/05/2024 Does person have difficulty dressing/bathing? No 02/05/2024 Does person have difficulty doing errands alone? Yes 02/05/2024 Cognitive Status Response Date of Assessm ent Does person have difficulty concentrating/remembering/making decisions? Yes 02/05/2024 Plan of Treatment Upcoming Encounters Date Type Department Care Team (Late st Contact Info) Description 09/17/2024 3:00 PM SUPERVISOR ORDNANCE TRUCK INSTALLATION Office Visit [facility] - Neurology [address] [place] [address], [facility] [place] [address] Connor Higgins MD [address] [place] [address] [place] [address] Goals Goal Patient Goal Type Associated Problems Recent Progress Patient-Stated? Author Medication Management General On track( 022 10:41 AM CDT) Namrata Turner RN Note: Expected end date: ongoing Interventions: Take all medications as prescribed Let your doctor know right away about any changes in your medications Make sure to request a refill of your medication at least one week prior to your last dose Medical Devices Implanted Type Area Attending Psychiatrist Device Identifier Shelf Expiration Date Model / Serial / Lot Cmpnt Fem Kn Rt 5 Crcte Rtn Legion Watt Implanted:Qty: 1 on 06/04/2017 by Taiwo Pérez MD at [facility] Right: Knee [employer] 04/29/2027 [id number] / / [id number] Nadir Basic Amrit Excludes Agc Kn Implanted:Qty: 1 on 06/04/2017 by Taiwo Pérez MD at [facility] [place] [employer] BILL ONLY BASIC AMRIT EXCLUDES AGC KN SNOR / / Stem Tib 55mm 18mm Prfx Mtphsl Kn Implanted:Qty: 1 on 06/04/2017 by Taiwo Pérez MD at [facility] Right: Knee [employer] 04/13/2027 [id number] / / [id number] Ins Tib 3-4 9mm Kn Xlpe Dsh Legion Implanted:Qty: 1 on 06/04/2017 by Taiwo Pérez MD at [facility] Right: Knee [employer] 11/14/2026 [id number] / / [id number] Bsplt Tib Legion 3 Kn Rt Watt Por Implanted:Qty: 1 on 06/04/2017 by Taiwo Pérez MD at [facility] Right: Knee [employer] 11/05/2026 [id number] / / [id number] Screw Bsplt 15mm 6.5mm Gns2 Kn Tib Por Implanted:Qty: 1 on 06/04/2017 by Taiwo Pérez MD at [facility] Right: Knee [employer] 11/20/2026 [id number] / / [id number] Screw Bsplt 30mm 6.5mm Gns2 Kn Tib Por Implanted:Qty: 1 on 06/04/2017 by Taiwo Pérez MD at [facility] Right: Knee [employer] 09/25/2026 [id number] / / [id number] Screw Bsplt 20mm 6.5mm Gns2 Kn Tib Por Implanted:Qty: 1 on 06/04/2017 by Taiwo Pérez MD at [facility] Right: Knee [employer] 04/16/2027 [id number] / / [id number] Screw Bsplt 30mm 6.5mm Gns2 Kn Tib Por Implanted:Qty: 1 on 06/04/2017 by Taiwo Pérez MD at [facility] Right: Knee [employer] 04/16/2027 [id number] / / [id number] [employer] [place] W/Dynacord Implanted:Qty: 1 on 02/05/2019 by Bryn Rose MD at [facility] Right: Shoulder 05/12/2021 [id number] / / [id number] Description:ab [employer] [place] W/Dynacord Implanted:Qty: 1 on 02/05/2019 by Bryn Rose MD at [facility] Right: Shoulder 10/10/2021 [id number] / / [id number] Description:ab [place] 5.5 Healix Adv Knt Br Implanted:Qty: 1 on 02/05/2019 by Bryn Rose MD at [facility] Right: Shoulder 01/10/2021 [id number] / / [id number] Description:ab HEALIX ADVANCE KNOTLESS BR ANCHOR [place] 5.5 Healix Adv Knt Br Implanted:Qty: 2 on 02/05/2019 by Bryn Rose MD at [facility] Right: Shoulder 03/12/2021 [id number] / / [id number] Description:ab HEALIX ADVANCE KNOTLESS BR ANCHOR Graft Tissue Allomend Aclr Drml Mtrx 8x4 Implanted:Qty: 1 on 02/05/2019 by Bryn Rose MD at [facility] Right: Shoulder [employer] 09/21/2020 [id number] / / [id number] Description:ab [place] 6.5 Healix Adv Knt Br Implanted:Qty: 2 on 02/05/2019 by Bryn Rose MD at [facility] Right: Shoulder 10/10/2021 [id number] / / [id number] Description:HEALIX ADVANCE K NOTLESS BR ANCHOR [employer] Hydrophobic Acrylic Intraocular Lens Implanted:Qty: 1 on 06/07/2022 by Mery Patel MD at [facility] Left: Eye [employer] 01/10/2025 [id number] 20.0 / [id number] / [id number] [employer] Implanted:Qty: 1 on 06/21/2022 by Mery Patel MD at [facility] Right: Eye 09/12/2024 MX60E 20.00 / [id number] / [id number] Patch Cv 6x1cm Vsgrd Bvn Pricrd Strl Implanted:Qty: 1 on 08/18/2022 by Yudith Rodriguez MD at [facility] Right: Carotid [employer] 09/01/2026 [id number] / / [id number] Explanted Type Area Attending Psychiatrist Device Identifier Shelf Expiration Date Model / Serial / Lot Screw Bsplt 25mm 6.5mm Gns2 Kn Tib Por Explanted:Qty: 1 on 06/04/2017 by Taiwo Pérez MD at [facility] Right: Knee [employer] 04/16/2027 [id number] / / [id number] Procedures Procedure Name Priority Date/Time Associated Diagnosis [...] COLON, SCREENING Routine 12/14/2020 9:12 AM CDT SD 3 COMP FOOT EXAM COMPLETED Routine 03/07/2018 Breast cancer screening EYE EXAM 12/18/2017 8:38 AM CDT HEPATITIS C ANTIBODY Routine 09/24/2013 1:23 PM SUPERVISOR ORDNANCE TRUCK INSTALLATION from Last 3 Months or Most Recently [...] 7 - 26 mg/dL 02/13/2024 12:47 PM CDT [facility] Creatinine 0.74 0.56 - 0.96 mg/dL 02/13/2024 12:[address] [facility] Sodium 146(H) 136 - 145 mmol/L 02/13/2024 12:[address] [facility] Potassium 3.0(L) 3.5 - 4.5 mmol/L 02/13/2024 12:[address] [facility] Chloride 107 98 - 107 mmol/L 02/13/2024 12:[address] [facility] CO2 28 22 - 29 mmol/L 02/13/2024 12:[address] [facility] Glucose 126(H) 70 - 115 mg/dL 02/13/2024 12:[address] [facility] Calcium 9.5 8.4 - 10.2 mg/dL 02/13/2024 12:[address] [facility] Anion Gap 11 6 - 16 02/13/2024 12:[address] [facility] BUN/Creatinine Ratio 16 7 - 23 02/13/2024 12:[address] [facility] Osmolality Calculated 303(H) 275 - 295 mOsm/kg 02/13/2024 12:[address] [facility] eGFR by CKD-EPI 89(L) >=90 mL/min/1.7 3 m2 02/13/2024 12:[address] [facility] Blood BLOOD SPECIMEN / Unknown Lab Venipuncture / Unknown 02/13/2024 11:02 AM CDT 02/13/2024 12:20 PM CDT Silviano York III, MD LAB - CHEMISTRY O RDERABLES Performing Organization Address City/State/[facility] Co de Phone Number [facility] [address] [place] [address], [facility] [phone] * (ABNORMAL) HEMOGLOBIN A1C (12/28/2023 1:51 AM CDT) Hemoglobin A1c 7.0(H) <5.7 % 12/28/2023 3:11 AM T [facility] Estimated Average Glucose 154 mg/dL 12/28/2023 3:11 AM T [facility] Blood BLOOD SPECIMEN / Unknown Lab Venipuncture / Unknown 12/28/2023 1:51 AM CDT 12/28/2023 2:58 AM CDT Narrative [facility] - 12/28/2023 3:11 AM CDT [...] Standardization Program (NGSP) certified method. Lisa Matthews DIRECT MARKETING INTERN-INSURANCE LICENSING SUPERVISOR LAB - EMISTRY ORDERABLES [facility] [address] [place], [place] [id number] * MICROALB/CREAT RATIO URINE RANDOM PANEL (04/12/2023 [...] Resulting Agency Comment Lab Testing performed at: [facility] [address] [facility] ??[facility] [phone] Jen Kam APRN-INSURANCE LICENSING SUPERVISOR LAB - URINE CH EMISTRY ORDERABLES [facility] INSURANCE BILL [address] [place] [address] * BONE DENSITY AXIAL SKELETON(1OR MORE SITES)[id number] (02/09/2022 8:20 AM CDT) Anatomical Region Laterality Modality Other 02/09/2022 4:19 PM CDT Narrative 02/09/2022 4:48 PM CDT Examination: Dual energy x-ray absorptiometry of the left hip. Clinical Indication: E28.39: Ovarian failure Technique: Detailed data from the exam is sent separately to the ordering physician and is also available on SpareFoot, the Radiology Department's computerized picture archive system. [...] theordering physician and is also available on [employer]Foot, the Radiology Department's computerized picture archive system. [...] ERON HOYOS D.O. on02/09/2022 4:48 PM . Jen Kam DIRECT MARKETING INTERN-INSURANCE LICENSING SUPERVISOR DEXA ORDERABLE S * MAMMO BILAT SCREENING [...] BENIGN. Report dictated by Ronny Braxton MD (vice president network development) Zeferino Molina MD (resident) assisted in the [...] most recent dated 09/15/2020 and 07/30/2019 from [facility]. TECHNIQUE: ??Tomosynthesis (3-D) and reconstructed synthetic 2-D [...] significant change from the prior. Jen Kam DIRECT MARKETING INTERN-INSURANCE LICENSING SUPERVISOR MAMMO ORDERABL ES * ENDOSCOPY, COLON, SCREENING (12/14/2020 9:12 AM CDT) Report Endoscopy POC Endoscopy Department Report _ Patient Name: Ivonne Santos ? Procedure Date: 12/14/2020 9:12 AM ? Date of : 1955 Classification: Outpatient ?Gender: Female Ethnicity: Not or ? Race: White _ Providers: ?Terrell Quijano MD Referring MD: ? Eirca Reno (Referring ) Procedure: ?Colonoscopy Indications: ?Surveillance: [...] and ?oxygen saturations were monitored continuously. The ?CF-[id number] was introduced through the anus and ?advanced [...] sessile. The polyp was removed with a nuevoStagembo cold forceps. An adjacent ? hyperplastic appearing [...] Procedure Code(s): ? --- Professional --- ? 68938, 52, Colonoscopy, flexible; with biopsy, single or multiple Diagnosis Code(s): ?--- Professional --- ?Z86.010, Personal history of colonic polyps CPT copyright 2019 [employer]. All rights reserved. The codes documented in this report are preliminary and upon clinical coder review may be revised to meet current compliance requirements. Terrell Quijano MD 12/14/2020 10:40:50 AM This report has been signed electronically. Note Initiated On: 12/14/2020 9:12 AM Number of Addenda: 0 ? [facility] ? [address] [place] [address] [facility] 12/14/2020 9:12 AM CDT Terrell Acevedo MD GI PROCEDU RE ORDERABLES [facility] * SD 3 COMP FOOT EXAM COMPLETED (Automatically Completed) (03/07/2018) Narrative Erica Reno, DIRECT MARKETING INTERN-INSURANCE LICENSING SUPERVISOR - 03/07/2018 left and right foot/feet examined with shoes and socks removed. Visual inspection was normal. Sensory exam with monofilament was ??normal. Dorsal pedal and posterior tibial pulses were normal. Erica Reno DIRECT MARKETING INTERN-INSURANCE LICENSING SUPERVISOR SD - PROFES SIONAL SERVICES * EYE EXAM (12/18/2017 8:38 AM CDT) Anatomical Region Laterality Modality Other Narrative 12/18/2017 8:38 AM CDT Ordered by an unspecified provider. Scanned Document SCANNING ONLY * HEPATITIS C ANTIBODY (09/24/2013 1:23 PM SUPERVISOR ORDNANCE TRUCK INSTALLATION) Hepatitis C Antibody NONREACTIVE NONREACTIVE [facility] Comment: Anti-HCV screen indicates no serologic evidence of past or current infection with Hepatitis C Virus. Patients with unexplained liver disease who are immunocompromised or suspected of having acute Hepatitis C infection may benefit from Nucleic Acid Test (CHASE) for Hepatitis C Viral RNA to confirm Hepatitis C status. 09/24/2013 1:23 PM SUPERVISOR ORDNANCE TRUCK INSTALLATION 09/24/2013 1:40 PM SUPERVISOR ORDNANCE TRUCK INSTALLATION Víctor Lacey MD LAB - CHEMISTRY O RDERABLES [address] [phone] from Last 3 Months or Most Recently Relevant to Health Maintenance Advance Directives Documents on File Type Date Recorded Patient Sack Cleaner Expl anation Adv Directive/Living Will/POA 02/23/2023 10:16 [...] 10:20 AM 04/12/2022 3:52 PM Care Teams Calender Machine Operator Relationship Specialty Start Date End Date Jen Kam, DIRECT MARKETING INTERN-INSURANCE LICENSING SUPERVISOR [address] [facility] [address] [place] [address] PCP - General Nurse Practitioner 11/09/21 Jose Elias Samaniego, RN 06/04/17 Pedro Cordero MD [address] [facility] [address] [place] [address] Cardiology 01/14/22 Abigail Thibodeaux MD [address] [place] [address] Psychiatry 01/14/22 Alen Cox MD [address] [facility] [address] [place], [facility] [place] [address] Urology 01/14/22 Mindy Salgado, PA-C [address] [place] [id number] Physician V [facility] Gastroenterology 01/14/22 Connor Higgins MD [address] [place] [id number] Neurology 01/14/22
--- OUTSIDE RECORDS SUMMARY | 2024-09-04 18:31 | XMS_ITS | Encounter Summary ---
Author Organization [facility] Address [address] [place] [address] Care Team Providers Care Manager Leasing Name Role Phone Jose Elias Samaniego RN Unavailable Unavailab Erica Tiwari DISPENSING AUDIOLOGIST-CHILD PSYCHOLOGIST Primary Care Provi leonard Yamileth Franks DISPENSING AUDIOLOGIST-CHILD PSYCHOLOGIST Primary Care Provider [phone] Jen Kam DISPENSING AUDIOLOGIST-[facility] Primary Care Provider Pedro Cordero MD Unavailable [phone] Abigail Thibodeaux MD Unavailable Dutch (Cc)Mindy Unavailable Unavailable Alen Cox MD Unavailable Mindy Salgado PA-C Unavailable Connor Higgins MD Unavailable Reason for Visit * Reason Onset Date Comments Medication Prior Auth Request 10/17/2018 Om eprazole Encounter Details Date Type Department Care Team (Late st Contact Info) Description 10/17/2018 Telephone [facility] [address] [address] Erica Reno DISPENSING AUDIOLOGIST-CHILD PSYCHOLOGIST [address] DIV [place] [phone] Medication Prior Auth Request (Omeprazole ) Social History Tobacco Use Types Packs/Day Years Used Date Smoking Tobacco: Former Cigarettes 1 30 0 1975 - 2005 Smokeless Tobacco: Former Comments:quit 7 years ago Alcohol Use Standard Drinks/Week Comments Yes 0 (1 standard drink = 0.6 oz pur e alcohol) occassional drinker Sex and Gender Information Value Date Recorded Sex Assigned at Female 10/22/2021 5:54 AM PARQUET FLOOR LAYER'S HELPER Gender Identity Female 10/22/2021 5:54 AM PARQUET FLOOR LAYER'S HELPER Sexual Orientation Not on file documented as of this encounter Functional Status Functional Status Response Date of Assess ment Is person deaf or have serious hearing difficult y? No 06/04/2017 Is person blind or have serious difficulty seein g? No 06/04/2017 Does person have serious dif ficulty walking/climbing stairs? Yes 06/04/2017 Does person have difficulty dressing/bathing? No 06/04/2017 Does person have difficulty doing errands alone? No 06/04/2017 Cognitive Status Response Date of Assessm ent Does person have difficulty concentrating/remembering/making decisions? No 06/04/2017 documented as of this encounter Miscellaneous Notes * Telephone Encounter - Juany Preston LPN - 10/23/2018 12:35 PM CDT PA for Omeprazole was denied by insurance. Pharmacy notified. Appeal info placed in providers box. * Telephone Encounter - Juany Preston LPN - 10/23/2018 8:39 AM CDT PA form completed by provider and faxed to insurance. Waiting for insurance decision * Telephone Encounter - Juany Preston LPN - 10/17/2018 10:07 AM PARQUET FLOOR LAYER'S HELPER Insurance requires PA for Omeprazole . Form placed in providers box. Please return to triage located in [facility] when finished. UET FLOOR LAYER'S HELPER * Telephone Encounter - Tatianna Calderon - 10/17/2018 8:38 AM CST Pharmacy faxing in notice that Omeprazole needs a prior auth. Notice located under patient's media tab dated 10-15-18. Message forwarded to [facility] for assistance. UET FLOOR LAYER'S HELPER documented in this encounter Plan of Treatment Upcoming Encounters Date Type Department Care Team (Late st Contact Info) Description 09/17/2024 3:00 PM PARQUET FLOOR LAYER'S HELPER Office Visit [facility] - Neurology [address] [place] [address], [place] [address] Connor Higgins MD [address] [place] [address] [place] [address] documented as of this encounter Visit Diagnoses Not on filedocumented in this encounter Care Teams Manager Leasing Relationship Specialty Start Date End Date Erica Reno, DISPENSING AUDIOLOGIST-CHILD PSYCHOLOGIST PCP - General 02/06/18 09/26/21 Yamileth Franks, DISPENSING AUDIOLOGIST-CHILD PSYCHOLOGIST [address] [place] [address] PCP - General 09/27/21 11/08/21 Jen Kam, DISPENSING AUDIOLOGIST-CHILD PSYCHOLOGIST [address] [place] [phone] PCP - General Nurse Practitioner 11/09/21 Jose Elias Samaniego, RN 06/04/17 Pedro Cordero MD [address] [facility] [place] [place] [address] Cardiology 01/14/22 Abigail Thibodeaux MD [address] [place] [address] Psychiatry 01/14/22 Dutch (Cc)Mindy Gastroenterology 01/14/22 01/14/22 Alen Cox MD [address] [facility] [address], [place] [address] Urology 01/14/22 Mindy Salgado PA-C [address] [place] [address] Physician Five Roll Refiner Batch Mixer Gastroenterology 01/14/22 Connor Higgins MD [address] [place] [address] Neurology 01/14/22 documented as of this encounter
--- OUTSIDE RECORDS SUMMARY | 2024-09-04 18:31 | XMS_ITS | Encounter Summary ---
Author Organization [facility] Address [address] [place] [address] Care Team Providers Care Mathematical Technician Name Role Phone Jose Elias Samaniego RN Unavailable Unavailab Erica Tiwari COMMUNITY YOUTH SECRETARY-[facility] Primary Care Provi leonard Yamileth Franks COMMUNITY YOUTH SECRETARY-[facility] Primary Care Provider [phone] Jen Kam COMMUNITY YOUTH SECRETARY-[facility] Primary Care Provider Pedro Cordero MD Unavailable [phone] Abigail Thibodeaux MD Unavailable Dutch (Cc)Mindy Unavailable Unavailable Alen Cox MD Unavailable Mindy Salgado PA-C Unavailable Connor Higgins MD Unavailable Encounter Details Date Type Department Care Team (Late st Contact Info) Description 05/09/2021 Telephone [facility] [address] [place] [address] Vanesa Hinojosa MD [address] [place] [address] Social History Tobacco Use Types Packs/Day Years Used Date Smoking Tobacco: Former Cigarettes 1 30 1 976 - 2006 Smokeless Tobacco: Never Alcohol Use Standard Drinks/Week Comments Yes 1 (1 standard drink = 0.6 oz pur e alcohol) 1-2 drinks per month or less AUDIT-C Answer Date Recorded Frequency of Alcohol Consumption Monthly or less 06/02/2019 Average Number of Drinks 1 or 2 019 Frequency of Binge Drinking Never 05/14 Sex and Gender Information Value Date Recorded Sex Assigned at Female 10/22/2021 5:54 AM INSULATION BLANKET MAKER Gender Identity Female 10/22/2021 5:54 AM INSULATION BLANKET MAKER Sexual Orientation Not on file COVID-19 Exposure Response Date Recorded In the last month, have you been in contact with someone who was confirmed or suspected to have Coronavirus / COVID-19? No / Unsure 05/03/2021 7:15 AM CDT documented as of this encounter Functional Status [...] encounter Miscellaneous Notes * Telephone Encounter - Flavia Swanson - 05/09/2021 4:04 PM CDT Current Provider name: Dr. Hinojosa Reason for call: Ms. Ivonne Santos just returned your phone call. You all have been playing phone tag. Please return her call. She's keeping her phone at the ready. Thanks. Patient Call Back number: [phone] documented in this encounter Plan of Treatment Upcoming Encounters Date Type Department Care Team (Late st Contact Info) Description 09/17/2024 3:00 PM INSULATION BLANKET MAKER Office Visit [facility] - Neurology [address] [place] [phone] Connor Higgins MD [address] [place] [address] documented as of this encounter Goals Goal Patient Goal Type Associated Problems Recent Progress Patient-Stated? Author Medication Management General On track( 022 10:41 AM CDT) Namrata Turner, RN Note: Expected end date: ongoing Interventions: Take all medications as prescribed Let your doctor know right away about any changes in your medications Make sure to request a refill of your medication at least one week prior to your last dose documented as of this encounter Visit Diagnoses Not on filedocumented in this encounter Care Teams Mathematical Technician Relationship Specialty Start Date End Date Erica Reno COMMUNITY YOUTH SECRETARY-[facility] PCP - General 02/06/18 09/26/21 Yamileth Franks, COMMUNITY YOUTH SECRETARY-[facility] [address] [place] [phone] PCP - General 09/27/21 11/08/21 Jen Kam COMMUNITY YOUTH SECRETARY-[facility] [address] [facility] [address] [place] [address] PCP - General Nurse Practitioner 11/09/21 Jose Elias Samaniego, RN 06/04/17 Pedro Cordero MD [address] [facility] [address] [place] [address] Cardiology 01/14/22 Abigail Thibodeaux MD [address] [place] [address] Psychiatry 01/14/22 Dutch (Cc)Mindy Gastroenterology 01/14/22 01/14/22 Alen Cox MD [address] [facility] [address], [place] [address] Urology 01/14/22 Mindy Salgado PA-C [address] DIV [place] [address] Physician Corporate Banking Officer Gastroenterology 01/14/22 Connor Higgins MD [address] [place] [address] Neurology 01/14/22 documented as of this encounter
--- OUTSIDE RECORDS SUMMARY | 2024-09-04 18:31 | XMS_ITS | Encounter Summary ---
Author Organization [facility] Address [address] [place] [address] Care Team Providers Care Unstacker Name Role Phone Jose Elias Samaniego RN Unavailable Unavailab Erica Tiwari INDUSTRIAL DESIGNER-[facility] Primary Care Provi leonard Yamileth Franks INDUSTRIAL DESIGNER-[facility] Primary Care Provider [phone] Jen Kam INDUSTRIAL DESIGNER-[facility] Primary Care Provider Pedro Cordero MD Unavailable [phone] Abigail Thibodeaux MD Unavailable Dutch (Cc)iMndy Unavailable Unavailable Alen Cox MD Unavailable Mindy Salgado PA-C Unavailable Connor Higgins MD Unavailable Reason for Visit * Reason Comments Refill Request Encounter Details Date Type Department Care Team (Late st Contact Info) Description 10/28/2020 Refill [facility] - Orthopedics [address] [place] [address], [place] [address] Carlos Manriquez MD [address] [place] [address] [place] [address] Refill Request Social History Tobacco Use Types Packs/Day Years [...] Sex Assigned at Female 10/22/2021 5:54 AM GREENHOUSE TRANSPLANTER Gender Identity Female 10/22/2021 5:54 AM GREENHOUSE TRANSPLANTER Sexual Orientation Not on file documented as [...] No 06/04/2017 documented as of this encounter Plan of Treatment Upcoming Encounters Date Type Department Care Team (Late st Contact Info) Description 09/17/2024 3:00 PM GREENHOUSE TRANSPLANTER Office Visit [facility] - Neurology [address] [place] [address], [place] [address] Connor Higgins MD [address] [place] [address] [place] [phone] documented as of this encounter Goals Goal [...] on filedocumented in this encounter Care Teams Unstacker Relationship Specialty Start Date End Date UyennathalieErica, INDUSTRIAL DESIGNER-PROJECT CREW WORKER PCP - General 02/06/18 09/26/21 Yamileth Franks, INDUSTRIAL DESIGNER-PROJECT CREW WORKER [address] [place] [address] PCP - General 09/27/21 11/08/21 Jen Kam, INDUSTRIAL DESIGNER-PROJECT CREW WORKER [address] [facility] 205 [place] [phone] PCP - General Nurse Practitioner 11/09/21 Jose Elias Samaniego, RN 06/04/17 Pedro Cordero MD [address] [facility] [address] [place] [address] Cardiology 01/14/22 Abigail Thibodeaux MD [address] [place], [place] [phone] Psychiatry 01/14/22 Dutch (Cc)Mindy Gastroenterology 01/14/22 01/14/22 [place] [address] [place] [address], [place] [address] Urology 01/14/22 Mindy Salgado PA-C [address] [facility] [address]L [place] [address] Physician Systems Applications Programming Lead Gastroenterology 01/14/22 Connor Higgins MD [address] [facility] [address]L [place] [address] Neurology 01/14/22 documented as of this encounter
--- OUTSIDE RECORDS SUMMARY | 2024-09-04 18:31 | XMS_ITS | Encounter Summary ---
Author Organization [facility] Address [address] [place] [address] Care Team Providers Care Cream Separator Operator Name Role Phone Jose Elias Samaniego RN Unavailable Unavailab Erica Tiwari PLASTER MACHINE OPERATOR-[facility] Primary Care Provi leonard Yamileth Franks PLASTER MACHINE OPERATOR-[facility] Primary Care Provider [phone] Jen Kam PLASTER MACHINE OPERATOR-[facility] Primary Care Provider Pedro Cordero MD Unavailable [phone] Abigail Thibodeaux MD Unavailable Dutch (Cc)Mindy Unavailable Unavailable Alen Cox MD Unavailable Mindy Salgado PA-C Unavailable Connor Higgins MD Unavailable Reason for Visit * Reason Onset Date Comments MEDICATION REFILL 09/05/2021 Encounter Details Date Type Department Care Team (Late st Contact Info) Description 09/05/2021 Refill [facility] [address] [place] [address], [place] [address] Erica Reno PLASTER MACHINE OPERATOR-SUPERINTENDENT GENERATING PLANT [address] [place] [address] [address] DIV [place] [address] MEDICATION REFILL Social History Tobacco Use Types Packs/Day Years Used Date Smoking Tobacco: Former Cigarettes 1 30 1 976 - 2005 Smokeless Tobacco: Never Alcohol Use Standard Drinks/Week Comments Not Currently 1 (1 standard drink = 0.6 oz pur e alcohol) 1-2 drinks per month or less AUDIT-C Answer Date Recorded Frequency of Alcohol Consumption Monthly or less 06/02/2019 Average Number of Drinks 1 or 2 019 Frequency of Binge Drinking Never 05/14 Sex and Gender Information Value Date Recorded Sex Assigned at Female 10/22/2021 5:54 AM FILTER PRESS OPERATOR Gender Identity Female 10/22/2021 5:54 AM FILTER PRESS OPERATOR Sexual Orientation Not on file documented as of this encounter Functional Status Functional Status Response Date of Assess ment Is person deaf or have serious hearing difficult y? No 06/07/2021 Is person blind or have serious difficulty seein g? No 06/07/2021 Does person have serious dif ficulty walking/climbing stairs? No 06/07/2021 Does person have difficulty dressing/bathing? No 06/07/2021 Does person have difficulty doing errands alone? No 06/07/2021 Cognitive Status Response Date of Assessm ent Does person have difficulty concentrating/remembering/making decisions? No 06/07/2021 documented as of this encounter Plan of Treatment Upcoming Encounters Date Type Department Care Team (Late st Contact Info) Description 09/17/2024 3:00 PM FILTER PRESS OPERATOR Office Visit [facility] - Neurology [address] [place] [address], [facility] [place] [address] Connor Higgins MD [address] [place] [address] [place] [address] documented as of this encounter Goals Goal [...] on filedocumented in this encounter Care Teams Cream Separator Operator Relationship Specialty Start Date End Date Erica Reno, PLASTER MACHINE OPERATOR-[facility] PCP - General 02/06/18 09/26/21 Yamileth Franks, PLASTER MACHINE OPERATOR-[facility] [address] [place] [phone] PCP - General 09/27/21 11/08/21 Jen Kam, PLASTER MACHINE OPERATOR-[facility] [address] [phone] PCP - General Nurse Practitioner 11/09/21 Jose Elias Samaniego, RN 06/04/17 Pedro Cordero MD [address] [facility] 1120 [place] [address] Cardiology 01/14/22 Abigail Thibodeaux MD [address] [place] [address] Psychiatry 01/14/22 Dutch (Cc)Mindy Gastroenterology 01/14/22 01/14/22 Alen Cox MD [address] [place] [address] [address] Urology 01/14/22 Mindy Salgado PA-C [address] [facility] 3L [place] [phone] Physician Lsat Instructor Gastroenterology 01/14/22 Connor Higgins MD [address] [place] [address] Neurology 01/14/22 documented as of this encounter
--- OUTSIDE RECORDS SUMMARY | 2024-09-04 18:31 | XMS_ITS | Encounter Summary ---
Author Organization [facility] Address [address] [address] Care Team Providers Care Biodiesel Plant Superintendent Name Role Phone Jose Elias Samaniego RN Unavailable Unavailab Erica Tiwari KENNEL ASSISTANT-[facility] Primary Care Provi leonard Yamileth Franks KENNEL ASSISTANT-[facility] Primary Care Provider [phone]- [phone] Jen Kam KENNEL ASSISTANT-[facility] Primary Care Provider Pedro Cordero MD Unavailable [phone] Abigail Thibodeaux MD Unavailable Dutch (Cc)Mindy Unavailable Unavailable Alen Cox MD Unavailable Mindy Salgado PA-C Unavailable Connor Higgins MD Unavailable Reason for Visit * Reason Onset Date Comments Results 06/11/2018 Encounter Details Date Type Department Care Team (Late st Contact Info) Description 06/11/2018 Telephone [facility] [address] [place] [address] Christopher Blair DO [address] [place] [address] Results Social History Tobacco Use Types Packs/Day Years Used Date Smoking Tobacco: Former Cigarettes 1 30 0 1975 - 2005 Smokeless Tobacco: Former Comments:quit 7 years ago Alcohol Use Standard Drinks/Week Comments Yes 0 (1 standard drink = 0.6 oz pur e alcohol) occassional drinker Sex and Gender Information Value Date Recorded Sex Assigned at Female 10/22/2021 5:54 AM CELLOPHANE WORKER Gender Identity Female 10/22/2021 5:54 AM CELLOPHANE WORKER Sexual Orientation Not on file documented as [...] st Contact Info) Description 09/17/2024 3:00 PM CELLOPHANE WORKER Office Visit [facility] - Neurology [address] [place] [address], [place] [phone] Connor Higgins MD [address] [place] [address] [place] [address] documented as of this encounter Visit Diagnoses Diagnosis 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 in this encounter Care Teams Biodiesel Plant Superintendent Relationship Specialty Start Date End Date Erica Reno APRN-WORSHIP LEADER PCP - General 02/06/18 09/26/21 Yamileth Franks APRN-WORSHIP LEADER [address] [place] [phone] PCP - General 09/27/21 11/08/21 Jen Kam APRN-WORSHIP LEADER [address] [place] [place] [address] PCP - General Nurse Practitioner 11/09/21 Jose Elias Samaniego, RN 06/04/17 Pedro Cordero MD [address] [place] [address] [place] [address] Cardiology 01/14/22 Abigail Thibodeaux MD [address] [place] [address] Psychiatry 01/14/22 Dutch (Cc), Mindy Gastroenterology 01/14/22 01/14/22 Alen Cox MD [address] [facility] [address], [place] [address] Urology 01/14/22 Mindy Salgado PA-C [address] [place] [address] Physician Machine Turner Gastroenterology 01/14/22 Connor Higgins MD [address] [place] [address] Neurology 01/14/22 documented as of this encounter
--- OUTSIDE RECORDS SUMMARY | 2024-09-04 18:31 | XMS_ITS | Encounter Summary ---
Author Organization [facility] Address [address] [facility] [place] [address] Care Team Providers Care Acid Washer Operator Name Role Phone Jose Elias Samaniego RN Unavailable Unavailab Jen Toro HYDRAULIC RUBBISH COMPACTOR MECHANIC-MDS RN Primary Care Provider Pedro Cordero MD Unavailable [phone] Abigail Thibodeaux MD Unavailable Alen Cox MD Unavailable Mindy Salgado PA-C Unavailable Connor Higgins MD Unavailable Reason for Visit * Reason Onset Date Comments Medication Issue 01/20/2022 Encounter Details Date Type Department Care Team (Late st Contact Info) Description 01/20/2022 Telephone [facility] [address] [place] [address] Jen Kam, HYDRAULIC RUBBISH COMPACTOR MECHANIC-MDS RN [address] [facility] 205 [place] [address] Medication Issue Social History Tobacco Use Types Packs/Day Years [...] 019 Frequency of Binge Drinking Never 05/14 PHQ-2 Answer Date Recorded PHQ2 TOTAL SCORE 0 01/12/2022 Sex and Gender Information Value Date Recorded Sex Assigned at Female 10/22/2021 5:54 AM PROJECT EXECUTIVE Gender Identity Female 10/22/2021 5:54 AM PROJECT EXECUTIVE Sexual Orientation Not on file documented as [...] No 06/07/2021 documented as of this encounter Miscellaneous Notes * Telephone Encounter - Alma Flores - 01/20/2022 2:33 PM CDT Patient Railroad Mechanic called in today she stated that Mrs. Santos Dr Yue Knight refuses to treat her due to the fact that she did not order the urine culture and she is asking if she could be treated. documented in this encounter Plan of Treatment Upcoming Encounters Date Type Department Care Team (Late st Contact Info) Description 09/17/2024 3:00 PM PROJECT EXECUTIVE Office Visit [facility] - Neurology [address] [place] [address], [place] [address] Connor Higgins MD [address] [place] [address] [place] [address] documented as of this encounter Goals Goal Patient Goal Type Associated Problems Recent Progress Patient-Stated? Author Medication Management General On track( 022 10:41 AM CDT) No Namrata Huynh, RN Note: Expected end date: ongoing Interventions: Take all medications as prescribed Let your doctor know right away about any changes in your medications Make sure to request a refill of your medication at least one week prior to your last dose documented as of this encounter Visit Diagnoses Not on filedocumented in this encounter Care Teams Acid Washer Operator Relationship Specialty Start Date End Date Jen Kam, HYDRAULIC RUBBISH COMPACTOR MECHANIC-MDS RN [address] [facility] [address] [place] [phone] PCP - General Nurse Practitioner 11/09/21 Jos eElias Samaniego, RN 06/04/17 Pedro Cordero MD [address] [facility] [address] [place] [address] Cardiology 01/14/22 Abigail Thibodeaux MD [address] [place] [address] Psychiatry 01/14/22 Alen Cox MD 49[address] [facility] [address] [place] [address] Urology 01/14/22 Mindy Salgado, PA-C [address] [place] [address] Physician Machine Sign Writer Gastroenterology 01/14/22 Connor Higgins MD [address] [place] [phone] Neurology 01/14/22 documented as of this encounter
--- OUTSIDE RECORDS SUMMARY | 2024-09-04 18:31 | XMS_ITS | Encounter Summary ---
Author Organization [facility] Address [address] [facility] [facility] [place] [address] Care Team Providers Care Scientific Programmer Name Role Phone Jose Elias Samaniego RN Unavailable Unavailab Erica Tiwari ORACLE SECURITY CONSULTANT-[facility] Primary Care Provi leonard Yamileth Franks ORACLE SECURITY CONSULTANT-[facility] Primary Care Provider [phone] Jen Kam ORACLE SECURITY CONSULTANT-[facility] Primary Care Provider Pedro Cordero MD Unavailable [phone] Abigail Thibodeaux MD Unavailable Dutch (Cc)Mindy Unavailable Unavailable Alen Cox MD Unavailable Mindy Salgado PA-C Unavailable Connor Higgins MD Unavailable Reason for Visit * Reason Onset Date Comments MEDICATION REFILL 09/26/2019 Encounter Details Date Type Department Care Team (Late st Contact Info) Description 09/26/2019 Refill [facility] [address] [place] [address] Rosetta Brown APRN-MEDICARE INSURANCE SPECIALIST [address] [facility] [place] [address] MEDICATION REFILL Social History Tobacco Use Types Packs/Day Years Used Date Smoking Tobacco: Former Cigarettes 1 30 0 1975 - 2005 Smokeless Tobacco: Never Alcohol Use [...] Sex Assigned at Female 10/22/2021 5:54 AM MOLD PREPARER Gender Identity Female 10/22/2021 5:54 AM MOLD PREPARER Sexual Orientation Not on file documented as [...] encounter Miscellaneous Notes * Telephone Encounter - Renita Miramontes - 09/26/2019 2:18 PM CST [facility] documented in this encounter Plan of Treatment Upcoming Encounters Date Type Department Care Team (Late st Contact Info) Description 09/17/2024 3:00 PM MOLD PREPARER Office Visit [facility] - Neurology [address] [place] [address], [facility] [place] [address] Connor Higgins MD [address] [place] [address] [place] [address] documented as of this encounter Goals Goal Patient Goal Type Associated Problems Recent Progress Patient-Stated? Author Medication Management General On track( 022 10:41 AM CDT) No Shivani Huynha A, RN Note: Expected end date: ongoing Interventions: Take all medications as prescribed Let your doctor know right away about any changes in your medications Make sure to request a refill of your medication at least one week prior to your last dose documented as of this encounter Visit Diagnoses Diagnosis Parkinson's disease (HCC) documented in this encounter Care Teams Scientific Programmer Relationship Specialty Start Date End Date Erica Reno, ORACLE SECURITY CONSULTANT-[facility] PCP - General 02/06/18 09/26/21 Yamileth Franks, ORACLE SECURITY CONSULTANT-[facility] [address] [place] [address] PCP - General 09/27/21 11/08/21 Jen Kam, ORACLE SECURITY CONSULTANT-[facility] [address] [facility] [address] [place] [phone] PCP - General Nurse Practitioner 11/09/21 Jose Elias Samaniego, RN 06/04/17 Pedro Cordero MD [address] [facility] [address] [place] [address] Cardiology 01/14/22 Abigail Thibodeaux MD [address] [place] [address] Psychiatry 01/14/22 Dutch (Cc)Mindy Gastroenterology 01/14/22 01/14/22 Alen Cox MD [address] [facility] MS, [facility] [address] Urology 01/14/22 Mindy Salgado PA-C [address] DIV OF GASTROENTER[place] [address] Physician Optical Instrument Repairer Gastroenterology 01/14/22 Connor Higgins MD [address] [place] [address] Neurology 01/14/22 documented as of this encounter
--- OUTSIDE RECORDS SUMMARY | 2024-09-04 18:31 | XMS_ITS | Encounter Summary ---
Author Organization [facility] Address [address] [facility] [place] [address] Care Team Providers Care Business Travel Consultant Name Role Phone Jose Elias Samaniego RN Unavailable Unavailab Erica Tiwari DATABASES COMPUTER CONSULTANT-CENTRAL SUPPLY MANAGER Primary Care Provi leonard Yamileth Franks DATABASES COMPUTER CONSULTANT-CENTRAL SUPPLY MANAGER Primary Care Provider [phone] Jen Kam DATABASES COMPUTER CONSULTANT-CENTRAL SUPPLY MANAGER Primary Care Provider Pedro Cordero MD Unavailable [phone] Abigail Thibodeaux MD Unavailable Dutch (Cc)Mindy Unavailable Unavailable Alen Cox MD Unavailable Mindy Salgado PA-C Unavailable Connor Higgins MD Unavailable Reason for Visit * Reason Onset Date Comments Home Health 05/28/2019 Follow-up 05/29/2019 message relayed Encounter Details Date Type Department Care Team (Late st Contact Info) Description 05/28/2019 Telephone [facility] [address] [place] [address] Erica Reno DATABASES COMPUTER CONSULTANT-CENTRAL SUPPLY MANAGER [address] DIV OF GEN [place] [address] Home Health; Follow-up (message relayed) Social History Tobacco Use Types Packs/Day Years Used Date Smoking Tobacco: Former Cigarettes 1 30 0 1975 - 2005 Smokeless Tobacco: Never Alcohol Use Standard Drinks/Week Comments Yes 1 (1 standard drink = 0.6 oz pur e alcohol) 1-2 drinks per month or less Sex and Gender Information Value Date Recorded Sex Assigned at Female 10/22/2021 5:54 AM JAVA WEB USER INTERFACE DEVELOPER Gender Identity Female 10/22/2021 5:54 AM JAVA WEB USER INTERFACE DEVELOPER Sexual Orientation Not on file documented as [...] encounter Miscellaneous Notes * Telephone Encounter - Renan Alvarez - 05/29/2019 3:52 PM CDT [facility] called to follow-up on request to have the provider follow the pt for HH. Upon chartreview, message below provided: Message from JOSE GUADALUPE Reno Patient in hospital for exacerbation of Parkinson's. Shouldn't Neuro follow this?? If HH/PT/OT has a problem, they would need to talk to neuro. ?? LISA Patel Caller verbalized understanding and stated she would leticia that the provider refused to follow * Telephone Encounter - Erica Reno APRN-CNP - 05/28/2019 4:51 PM CDT Patient in hospital for exacerbation of Parkinson's. Shouldn't Neuro follow this?? If HH/PT/OT has a problem, they would need to talk to neuro. LISA Patel * Telephone Encounter - Antonio Renan - 05/28/2019 4:27 PM CDT [facility] called to request that the provider follow the pt for HH PT/OT for Parkinson's. Provided call back number of [phone] Message routed to provider for review and assistance documented in this encounter Plan of Treatment Upcoming Encounters Date Type Department Care Team (Late st Contact Info) Description 09/17/2024 3:00 PM JAVA WEB USER INTERFACE DEVELOPER Office Visit [facility] - Neurology [address] [place] [address], [facility] [place] [address] Connor Higgins MD [address] [place] [address] [place] [address] documented as of this encounter [...] on filedocumented in this encounter Care Teams Business Travel Consultant Relationship Specialty Start Date End Date Erica Reno APRN-CNP PCP - General 02/06/18 09/26/21 Yamileth Franks APRN-CNP [address] [place] [phone] PCP - General 09/27/21 11/08/21 Jen Kam, DATABASES COMPUTER CONSULTANT-CENTRAL SUPPLY MANAGER [address] [facility] [address] [place] [address] PCP - General Nurse Practitioner 11/09/21 Jose Elias Samaniego, RN 06/04/17 Pedro Cordero MD [address] [address] [facility] [address] [place] [address] Cardiology 01/14/22 Abigail Thibodeaux MD [address] [place] [address] Psychiatry 01/14/22 Dutch (Cc), Mindy Gastroenterology 01/14/22 01/14/22 [place] [address] [place] [address] [place], [facility] [place] [address] Urology 01/14/22 Mindy Salgado PAHodaC [address] DIV [place]STRO[place] [address] Physician Refrigeration Supervisor Gastroenterology 01/14/22 Connor Higgins MD [address] [place] [address] Neurology 01/14/22 documented as of this encounter
--- OUTSIDE RECORDS SUMMARY | 2024-09-04 18:31 | XMS_ITS | Encounter Summary ---
Author Organization [facility] Address [address] [facility] [place] [address] Care Team Providers Care Senior Market Intelligence Consultant Name Role Phone Jose Elias Samaniego RN Unavailable Unavailab Jen Toro BRAND MGR-ELECTRONICS HARDWARE DESIGN ENGINEER Primary Care Provider Pedro Cordero MD Unavailable [phone] Abigail Thibodeaux MD Unavailable Alen Cox MD Unavailable Mindy Salgado PA-C Unavailable Connor Higgins MD Unavailable Reason for Visit * Reason Onset Date Comments MEDICATION REFILL 06/26/2023 Encounter Details Date Type Department Care Team (Late st Contact Info) Description 06/26/2023 Refill [facility] Neurology [address] [place] [address], [facility] [place] [address] Connor Higgins MD [address] [place] [address] MEDICATION REFILL Social History Tobacco Use Types Packs/Day Years Used Date Smoking Tobacco: Former Cigarettes 30 976 - 2005 Smokeless Tobacco: Never Alcohol Use Standard Drinks/Week Comments Yes 0 [...] Date Recorded Patient Health Questionnaire-2 Score 0 04/12/2023 [facility] [employer] of Occupat ional Health - Occupational Stress [...] place to sleep or slept in a prison (including now)? No 02/20/2023 Sex and Gender Information Value Date Recorded Sex Assigned at Female 10/22/2021 5:54 AM PARTS INTERPRETER Gender Identity Female 10/22/2021 5:54 AM PARTS INTERPRETER Sexual Orientation Not on file documented as of this encounter Functional Status Functional Status Response Date of Assess ment Is person deaf or have serious hearing difficult y? No 02/18/2023 Is person blind or have serious difficulty seein g? No 02/18/2023 Does person have serious dif ficulty walking/climbing stairs? No 02/18/2023 Does person have difficulty dressing/bathing? No 02/18/2023 Does person have difficulty doing errands alone? No 02/18/2023 Cognitive Status Response Date of Assessm ent Does person have difficulty concentrating/remembering/making decisions? No 02/18/2023 documented as of this encounter Miscellaneous Notes * Telephone Encounter - Víctor Torre MA - 06/26/2023 8:38 AM CST Ivonne Santos CHRISTOPHER: 05/23/2023Jun due: 6 month follow up NOV date: 11/22/2023 clonazePAM 0.5 MG tablet LRF: 05/23/2023 Quantity dispensed: 30 tablets # refills: 0 S INTERPRETER documented in this encounter Plan of Treatment Upcoming Encounters Date Type Department Care Team (Late st Contact Info) Description 09/17/2024 3:00 PM PARTS INTERPRETER Office Visit [facility] - Neurology [address] [place] [address], [place] [phone] Connor Higgins MD [address] [place] [address] [place] [phone] documented as of this encounter Goals Goal [...] on filedocumented in this encounter Care Teams Senior Market Intelligence Consultant Relationship Specialty Start Date End Date Jen Kam, BRAND MGR-ELECTRONICS HARDWARE DESIGN ENGINEER [address] [place] [phone] PCP - General Nurse Practitioner 11/09/21 Jose Elias Samaniego, RN 06/04/17 Pedro Cordero MD [address] [place] [address] Cardiology 01/14/22 Abigail Thibodeaux MD [address] [place] [address] Psychiatry 01/14/22 Alen Cox MD [address] [facility] [address], [place] [address] Urology 01/14/22 Mindy Salgado, PA-C [address] [place] [address] Physician Ceramic Engineer Gastroenterology 01/14/22 Connor Higgins MD [address] [place] [address] Neurology 01/14/22 documented as of this encounter
--- OUTSIDE RECORDS SUMMARY | 2024-09-04 18:31 | XMS_ITS | Encounter Summary ---
Author Organization [facility] Address [address] [facility] [place] [address] Care Team Providers Care Hardwood Floor Sander Name Role Phone Jose Elias Samaniego RN Unavailable Unavailab Jen Toro COTTON GROWER-WATER RESOURCES PROJECT MANAGER Primary Care Provider Pedro Cordero MD Unavailable [phone] Abigail Thibodeaux MD Unavailable Alen Cox MD Unavailable Mindy Salgado PA-C Unavailable Connor Higgins MD Unavailable Reason for Visit * Reason Onset Date Comments MEDICATION REFILL 06/14/2022 Encounter Details Date Type Department Care Team (Late st Contact Info) Description 06/14/2022 Refill [facility] [address] [facility] [address] [place] [address] Jen Kam, COTTON GROWER-WATER RESOURCES PROJECT MANAGER [address] [facility] [address] [place] [address] MEDICATION REFILL Social History Tobacco Use Types [...] Answer Date Recorded PHQ2 TOTAL SCORE 0 06/15/2022 Sex and Gender Information Value Date Recorded Sex Assigned at Female 10/22/2021 5:[address] MAGISTRATE Gender Identity Female 10/22/2021 5:[address] MAGISTRATE Sexual Orientation Not on file COVID-19 Exposure Response Date Recorded In the last 10 days, have yo u been in contact with someone who was confirmed or suspected to have Coronavirus/COVID-19? No / Unsure 06/07/2022 8:10 AM CDT documented as of this encounter [...] st Contact Info) Description 09/17/2024 3:[address] MAGISTRATE Office Visit [facility] - Neurology [address] [place] [address], [facility] [place] [address] Connor Higgins MD [address] [place] [address] [place] [address] documented as of this encounter [...] on filedocumented in this encounter Care Teams Hardwood Floor Sander Relationship Specialty Start Date End Date Jen Kam APRN-WATER RESOURCES PROJECT MANAGER [address] [place] [address] PCP - General Nurse Practitioner 11/09/21 Jose Elias Samaniego, RN 06/04/17 Pedro Cordero MD [address] [facility] [address] [place] [address] Cardiology 01/14/22 Abigail Thibodeaux MD [address] [place] [address] Psychiatry 01/14/22 Alen Cox MD [address] [facility] [address] [place], [facility] [place] [address] Urology 01/14/22 Mindy Salgado, PAHodaC [address] [place] [address] Physician Otr Van Cdl Truck Driver Gastroenterology 01/14/22 Connor Higgins MD [address] [place] [phone] Neurology 01/14/22 documented as of this encounter
--- OUTSIDE RECORDS SUMMARY | 2024-09-04 18:31 | XMS_ITS | Encounter Summary ---
Author Organization [facility] Address [address] [facility] [place] [address] Care Team Providers Care Transportation Superintendent Name Role Phone Jose Elias Samaniego RN Unavailable Unavailab Erica Tiwari COMPENSATION ANALYST-[facility] Primary Care Provi leonard Yamileth Franks COMPENSATION ANALYST-[facility] Primary Care Provider [phone] Jen Kam COMPENSATION ANALYST-[facility] Primary Care Provider Pedro Cordero MD Unavailable [phone] Abigail Thibodeaux MD Unavailable Dutch (Cc)Mindy Unavailable Unavailable Alen Cox MD Unavailable Mindy Salgado PA-C Unavailable Connor Higgins MD Unavailable Reason for Visit * Reason Onset Date Comments MEDICATION REFILL 09/24/2019 Encounter Details Date Type Department Care Team (Late st Contact Info) Description 09/24/2019 Refill [facility] [address] [place] [address] Rosetta Brown APRN-SCIENTIFIC AFFAIRS MANAGER [address] [facility] [address] MEDICATION REFILL Social History Tobacco [...] Sex Assigned at Female 10/22/2021 5:54 AM LIFE MANAGEMENT TEACHER Gender Identity Female 10/22/2021 5:54 AM LIFE MANAGEMENT TEACHER Sexual Orientation Not on file documented as [...] st Contact Info) Description 09/17/2024 3:00 PM LIFE MANAGEMENT TEACHER Office Visit [facility] - Neurology [address] [place] [address], [facility] [place] [address] Connor Higgins MD [address] [place] [address] [place] [address] documented as of this encounter Goals Goal [...] (HCC) documented in this encounter Care Teams Transportation Superintendent Relationship Specialty Start Date End Date Erica Reno, COMPENSATION ANALYST-[facility] PCP - General 02/06/18 09/26/21 Yamileth Franks, COMPENSATION ANALYST-[facility] [address] [place] [phone] PCP - General 09/27/21 11/08/21 Jen Kam, COMPENSATION ANALYST-[facility] [address] [phone] PCP - General Nurse Practitioner 11/09/21 Jose Elias Samaniego, RN 06/04/17 Pedro Cordero MD [address] [facility] [address]120 [place] [address] Cardiology 01/14/22 Abigail Thibodeaux MD [address] [place] [address] Psychiatry 01/14/22 Dutch (Cc)Mindy Gastroenterology 01/14/22 01/14/22 Alen Cox MD [address] [place] [address] 11 [place] [address] Urology 01/14/22 Mindy Salgado PA-C [address] [facility] 3L DIV [place] [address] Physician Code Enforcement Supervisor Gastroenterology 01/14/22 Connor Higgins MD [address] [facility] 1L [place] [address] Neurology 01/14/22 documented as of this encounter
--- OUTSIDE RECORDS SUMMARY | 2024-09-04 18:31 | XMS_ITS | Encounter Summary ---
Author Organization [facility] Address [address] [facility] [place] [address] Care Team Providers Care Keeper Helper Name Role Phone Jose Elias Samaniego RN Unavailable Unavailab Erica Tiwari [facility] Primary Care Provi leonard Yamileth Franks [facility] Primary Care Provider [phone] Jen Kam FR[facility] Primary Care Provider Pedro Cordero MD Unavailable [phone] Abigail Thibodeaux MD Unavailable Dutch (Cc)Mindy Unavailable Unavailable Alen Cox MD Unavailable Mindy Salgado PA-C Unavailable Connor Higgins MD Unavailable Reason for Visit * Reason Onset Date Comments MEDICATION REFILL 11/06/2018 Encounter Details Date Type Department Care Team (Late st Contact Info) Description 11/06/2018 Refill [facility] [address] [place] [address] Connor Higgins MD [address] [place] [address] MEDICATION REFILL Social History Tobacco Use Types Packs/Day Years Used Date Smoking Tobacco: Former Cigarettes 1 30 0 1975 - 2005 Smokeless Tobacco: Former Comments:quit 7 years ago Alcohol Use Standard Drinks/Week Comments Yes 0 (1 standard drink = 0.6 oz pur e alcohol) occassional drinker Sex and Gender Information Value Date Recorded Sex Assigned at Female 10/22/2021 5:54 AM DOCKING PILOT Gender Identity Female 10/22/2021 5:54 AM DOCKING PILOT Sexual Orientation Not on file documented as [...] st Contact Info) Description 09/17/2024 3:00 PM DOCKING PILOT Office Visit [facility] - Neurology [address] [place] [address], [place] [address] Connor Higgins MD [address] [place] [address] [place] [address] documented as of this encounter Visit Diagnoses Not on filedocumented in this encounter Care Teams Keeper Helper Relationship Specialty Start Date End Date Erica Reno APRN-PIPE ORGAN INSTALLER PCP - General 02/06/18 09/26/21 Yamileth Franks APRN-PIPE ORGAN INSTALLER [address] [place] [phone] PCP - General 09/27/21 11/08/21 Jen Kam FRAME ALIGNER-PIPE ORGAN INSTALLER [address] [place] [phone] PCP - General Nurse Practitioner 11/09/21 Jose Elias Samaniego, RN 06/04/17 Pedro Cordero MD [address] [place] [address] Cardiology 01/14/22 Abigail Thibodeaux MD [address] [place] [address] Psychiatry 01/14/22 Dutch (Cc), Mindy Gastroenterology 01/14/22 01/14/22 Alen Cox MD [address] [facility] [place] [address] Urology 01/14/22 Mindy Salgado, PAHodaC [address] [place] [address] Physician Clarifier Operator Gastroenterology 01/14/22 Connor Higgins MD [address] [place] [address] Neurology 01/14/22 documented as of this encounter
--- OUTSIDE RECORDS SUMMARY | 2024-09-04 18:31 | XMS_ITS | Clinical Summary ---
Author Organization [facility] Address [address] [place] [address] Care Team Providers Care Nurse Staff Industrial Name Role Phone Erica Reno NP Primary Care Provider + Allergies Active Allergy Reactions Criticality Noted Date Comments Adhesive Itching,Rash Medium 02/07/2010 blistering from adhesive; paper tape ok Cephalexin Anaphylaxis,Shortne ss of breath,Rash High 03/07/2013 Says that allergy tested - may take low doses of penicillin Can take cefpodoxime, and rocephin Chlorthalidone Rash Medium 11/19/2020 Ciprofloxacin Hives,Nausea And Vomiting,Stomach upset,Urticaria,Hea dache Medium 12/16/2009 Severe headache Fentanyl Anaphylaxis High 09/05/2013 Was told she had anaphylaxis when she was hospitalized Ibuprofen Rash,Other (See comments) High 02/05/2019 Contraindicated due to renal failure Levofloxacin Rash Medium 11/09/2021 Methadone Nausea And Vomiting,Palpitatio ns,Other (See comments),Stomach upset,Mental status changes Medium 02/07/2010 Other reactions include anxiety & insomnia Opioids - Morphine Analogues Hives,Itching,Rash, Urticaria High 04/08/2008 Penicillins Anaphylaxis High 11/12/2017 Passed PCN testing on 11/05/2018 Sulfa (Sulfonamide Antibiotics) Hives,Rash High 12/16/2009 Medications apixaban (ELIQUIS) 5 mg tablet Take 1 tablet by mouth 2 (two) times a day 1 Active ascorbic acid (VITAMIN C) 500 mg tablet,chewable Take 1 tablet by mouth daily 0 Active atorvastatin (LIPITOR) 80 mg tablet Take 80 mg by mouth nightly 2 Active cetirizine (ZyrTEC) 10 mg tablet Take 10 mg by mouth daily 1 Active clonazePAM (KlonoPIN) 0.5 mg tablet Take 0.5 mg by mouth nightly 2 Active ezetimibe (ZETIA) 10 mg tablet Take 10 mg by mouth daily 1 Active lamoTRIgine (LaMICtal) 100 mg tablet Take 100 mg by mouth 2 (two) times a day 2 Active mirabegron ER (MYRBETRIQ) 50 mg tablet extended release 24 hr Take 50 mg by mouth daily [address] (PROTONIX) 40 mg EC tablet Take 40 mg by mouth daily 1 Active pramipexole (MIRAPEX) 1 mg tablet Take 1 mg by mouth 3 (three) times a day 1 Active calcium carbonate-vitam in D3 (CALTRATE 600 + D) 1500 mg (600 mg elemental) -400 units per tablet Take 1 tablet by mouth once a week Wednesdays 2 Active acetaminophen (TYLENOL) 325 mg tablet Take 650 mg by mouth every 6 (six) hours as needed for pain Active lamoTRIgine (LaMICtal) 100 mg tablet Take 200 mg by mouth nightly Active famotidine (PEPCID) 40 mg tablet Take 40 mg by mouth daily Active HYDROcodone-yousif taminophen (NORCO) 5-325 mg per tabletIndicatio ns:Pain Take 1-2 tablets by mouth every 6 (six) hours as needed for pain Active metoprolol (LOPRESSOR) 100 mg tablet Take 100 mg by mouth 2 (two) times a day Active pimavanserin (Nuplazid) 34 mg Take 34 mg by mouth daily Active budesonide (PULMICORT) 90 mcg/actuation inhaler Inhale 2 puffs 2 (two) times a day Rinse mouth with water after use. Do not swallow. Active diclofenac sodium (VOLTAREN) 1 % gel Apply 2 g topically 4 (four) times a day Active trimethoprim (TRIMPEX) 100 mg tablet TAKE 1 TABLET BY MOUTH ONCE DAILY 30 tablet 5 2 Active tamsulosin (FLOMAX) 0.4 mg extended release capsule TAKE 1 CAPSULE BY MOUTH EVERY DAY 30 capsule 5 2 Active albuterol HFA (PROVENTIL HFA,VENTOLIN HFA,PROAIR HFA) 90 mcg/actuation inhaler Inhale 2 puffs every 4 (four) hours as needed 2 Active Trulicity 0.75 mg/0.5 mL pen injector 2 Active hydroCHLOROthia zide (HYDRODIURIL) 25 mg tablet 2 Active latanoprost (XALATAN) 0.005 % ophthalmic solution 2 Active lisinopriL (PRINIVIL,ZESTR IL) 20 mg tablet 2 Active Latuda 60 mg tablet 2 Active Daily-Elizabeth, with folic acid, 400 mcg tablet 2 Active Active Problems Problem Noted Date Diagnosed Date Gross hematuria 11/18/2021 Abdominal pain 11/18/2021 Nephrolithiasis 09/01/2021 Assessment & Plan (11/03/2021 1:55 PM CDT): -Noted symptoms of stone passage starting around 10/19. She reports straining her urine but no stone. She had some mild to moderate pain several days ago and gross hematuria couple days ago. -Discussed continued monitoring with trial of passage vs surgical stone management. Patient states she would like to undergo surgical intervention if possible. PLAN: -Will discuss with our urologists for possible surgical intervention and contact patient with further plan. -She should continue to strain her urine for now with adequate hydration. -Should be evaluated in ER if fevers, chills, uncontrolled pain, or uncontrollable N/V. Assessment & Plan (09/01/2021 11:19 AM MEDICAL STAFF MANAGER): -Hx of stones in the past. Reports she had 3-4 stones removed with [facility] but 2mm stone remained. -Patient is very interested in having stone removed to see if this will help with reduction of infections. PLAN: -Will discuss with urologist; however, given length of UTI's occurring since she was a child, unsure if this would help to reduce. Atrial flutter ([facility]) 06/30/2021 Overview (09/01/2021): Last Assessment & Plan: Eliquis and BB. Denies reoccurrence. Urinary tract infection 05/10/2021 Angular cheilitis 02/18/2021 Rash and other nonspecific skin eruption 021 Solar aging of skin 02/18/2021 Type 2 diabetes mellitus wit h hyperglycemia, without long-term current use of insulin 11/16/2020 Heart palpitations 11/16/2020 Overview (09/01/2021): Last Assessment & Plan: Denies continue BB. Device showed 9 minutes of Atrial Flutter will review addition of NOAC with Dr. Velarde. PT has not obtained Eliquis yet, I have called in a coupon trial free 30 day offer. Swelling of lower extremity 11/16/2020 Mixed hyperlipidemia 09/02/2020 Carotid stenosis, right 09/11/2019 Gait instability 05/26/2019 Mild intermittent asthma without complication Recurrent UTI 10/09/2018 Overview (09/01/2021): Last Assessment & Plan: I have reached out to ID for assitance, pt is concerned she has reoccurrence of UTI. 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 Pt will follow up with ID. Assessment & Plan (11/03/2021 1:51 PM CDT): -On trimethoprim and doing well. No UTI's since last urologic evaluation. PLAN: -Continue this medication. Assessment & Plan (09/01/2021 11:20 AM MEDICAL STAFF MANAGER): -Has had cysto 03/2021 and CTU 04/2021. Cysto showed erythematous bladder wall indicative of frequent UTI and grade 1 trabeculation. CTU showed punctate left nonobstructing nephrolithiasis. -She has tried estrogen cream, methenamine + vitamin C, cranberry/D-mannose, and daily abx without improvement in number of UTI's. -She has been evaluated by both ID and [facility]. -She has 2mm nonobstructing kidney stone and is very interested in seeing if this can be treated to see if it will reduce UTI's. -She does report having to rock back and forth and double void to empty bladder. Given trabeculation noted in bladder will trial tamsulosin. -POCT UA showing large amount of blood. PLAN: -Start trimethoprim daily. -Take flomax nightly. Continue to rock back and forth and double void. -She was instructed to continue good hydration and urinate regularly. -Urine sent for micro and culture. 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 Total IgE 2. Vocal cord dysfunction 06/09/2018 HARSH (obstructive sleep apnea) 07/24/2016 Nonalcoholic fatty liver disease 07/11/2016 Female hypogonadism 06/24/2016 Bipolar 2 disorder ([facility]) 01/15/2016 Glaucoma of both eyes 10/15/2015 Type 2 diabetes mellitus with hyperglycemia ([facility]) 07/15/2015 Essential hypertension 01/11/2015 Overview (09/01/2021): Last Assessment & Plan: Stable off HCTZ continue metoprolol 50mg BID. Would address UTI before resuming HCTZ. BP controlled in clinic, BP log and DiBcom message in 1-2 weeks. 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 -She started on oxybutynin a few months ago. PLAN: -May continue oxybutynin at this time. Hypokalemia 12/12/2010 Colon adenomas 10/27/2010 Overview (09/01/2021): Overview: Cecal adenoma, path not available from prior exam. Also note brother with colon cancer age 60 years 12/14/20 colonoscopy: two diminutive adenomas removed from rectosigmoid colon, repeat in 2025 Restless legs 08/18/2009 GERD (gastroesophageal reflux disease) 8 Surgical History Surgery Date Site/Laterality Comments SPINE SURGERY fusion HYSTERECTOMY CHOLECYSTECTOMY JOINT REPLACEMENT Right knee Medical History Medical History Date Comments Anxiety Atrial flutter (CMS/HCC) (HCC) Bipolar 2 disorder (CMS/HCC) (HCC) COPD (chronic obstructive pulmonary disease) (HC C) Degenerative joint disease Depression GERD (gastroesophageal reflux disease) Hyperlipidemia Hypertension Multiple environmental allergies Type 2 diabetes mellitus (HCC) Chronic pain disorder Parkinson disease (HCC) Psychosis (HCC) UTI (urinary tract infection) Kidney stone Sleep apnea pt denies Social History Tobacco Use Types Packs/Day Years Used Date Smoking Tobacco: Former Cigarettes Q uit: 2007 AUDIT-C Answer Date Recorded Q1: How often do you have a drink containing alc ohol? Monthly or less 11/16/2021 Q2: How many drinks containi ng alcohol do you have on a typical day when you are drinking? 1 or 2 11/16/2021 Q3: How often do you have si x or more drinks on one occasion? Never 11/16/2021 Comments No Sex and Gender Information Value Date Recorded Sex Assigned at Not on file Legal Sex Female 2:03 AM MEDICAL STAFF MANAGER Gender Identity Female 09/01/2021 10:01 AM MEDICAL STAFF MANAGER Sexual Orientation Not on file Obstetrics History Last Filed Vital Signs Vital Sign Reading Time Taken Comments Blood Pressure 122/77 03/21/2022 9:39 AM CDT Pulse 70 03/21/2022 9:39 AM CDT Temperature 36.8 ??C (98.2 ??F) 03/21/2022 9:39 AM CD T Respiratory Rate 18 11/21/2021 11:00 AM CDT Oxygen Saturation 96% 11/21/2021 11:00 AM CDT Inhaled Oxygen Concentration - - Weight 88 kg (194 lb) 03/21/2022 9:39 AM CDT Height 167.6 cm (5' 6 ) 03/21/2022 9:39 AM CDT Body Mass Index 31.31 03/21/2022 9:39 AM CDT Plan of Treatment Health Maintenance Due Date Last Done Comments Albumin Creatinine Ratio, Urine 1955 Colon Cancer Screening-Colonoscopy 1955 Depression Screening 1955 Hepatitis C Screening 1955 Dilated Eye Exam 1956 Foot Exam 1956 Breast Cancer Screening-Mammogram 05/31/2017 05/31/2016, 03/25/2015, 01/26/2014 Well Visit 65+ 2021 Zoster Vaccine (2 of 2) 02/02/2022 12/08/2021 Hemoglobin A1C 05/21/2022 11/19/2021 Lipid Panel 09/20/2022 09/20/2021 Fall Risk Assessment 11/21/2022 11/21/2021 eGFR 02/15/2023 02/15/2022, 11/11, 11/20/2021, Additional history exists Pneumococcal vaccine 65+ (4 of 4 - PPSV23 or PCV20) 11/06/2023 11/05/2018, 10/09/2018, 01/11/2015, Additional history exists Osteoporosis Screening-Bone Density Scan 02/10/2024 02/09/2022 Covid-19 Vaccine (5 - 2023-2 5 season) 2024 07/19/2021, 11/12/2020, 10/21/2020, Additional history exists Influenza Vaccine (#1) 2024 , 05/25/2020, 05/19/2019, Additional history exists DTaP/Tdap/Td Vaccine (5 - Td or Tdap) 12/09/2031 12/08/2021, 05/17/2011, 2002, Additional history exists Medical Devices Implanted Type Area Coordinator Cardiopulmonary Services Device Identifier Shelf Expiration Date Model / Serial / Lot Total Joint Other - see comments Right: Knee Neck Fusion Other - see comments Neck Explanted Type Area Coordinator Cardiopulmonary Services Device Identifier Shelf Expiration Date Model / Serial / Lot [employer] [id number] Universa 6fr 24cm Radiopaque Graduate Firm [employer]ofil[employer] Tether - [id number] Implanted:Qty: 1 on 11/16/2021 by Alen Cox MD at [facility] Explanted:Qty: 1 on 11/17/2021 Left: [employer] 07/05/2024 [id number] / / [id number] Procedures Procedure Name Priority Date/Time Associated Diagnosis Comments EGFR Routine 02/15/2022 10:08 AM CDT Nephrolithiasis HEMOGLOBIN A1C Routine 11/19/2021 4:26 AM CDT SCREENING MAMMOGRAM W VARUN Routine 05/31/2016 9:20 AM CDT from Last 3 Months or Most Recently Relevant to Health Maintenance Results * eGFR (02/15/2022 10:08 AM CDT) eGFR 63 mL/min/1. 73 m2 WENDY CASILLAS Comment: Interpretive Data Reference Interval Normal ?>/= 90 mL/min/1.73m2 Mildly decreased* ? 60 - 89 mL/min/1.73m2 Mildly to moderately decreased ?45 - 59 mL/min/1.73m2 Moderately to severely decreased ??30 - 44 mL/min/1.73m2 Severely decreased ?15 - 29 mL/min/1.73m2 Kidney Failure ?< 15 ??mL/min/1.73m2 *Relative to young adult level Estimated glomerular filtration rate is determined by the 2020 CKD-EPI equation recommended by the National Kidney Foundation (A Unifying Approach to GFR Estimation: Recommendations of the NKF-ASK Task Force on Reassessing the Inclusion of Race in Diagnosing Kidney Disease, JASN 202). The CKD-EPI equation should not be used for patients with unstable renal function and has not been validated in children and those over 70. Current interpretive data was last reviewed 2021. Testing performed by: [facility], [address] [place] [address]., [id number] Blood 02/15/2022 10:0 8 AM CDT 02/15/2022 10:27 AM CDT us Alen Cox MD LAB BLOOD ORDERABLES Final Resul t Performing Organization Address [facility] de Phone Number [facility] [place] [address] * (ABNORMAL) Hemoglobin A1c (11/19/2021 4:26 AM CDT) Hgb A1C 7.4(H) 4.0 - 5.6 % WENDY Estimated Average Glucose 166 mg/dL WENDY Comment: The ADA recommends reporting an estimated Average Glucose (eAG) with all Hemoglobin A1c results using the equation derived from a study of 507 normal and diabetic adults. ??Minority populations were underrepresented and children were not included. ?? (Diabetes Care 31:2313-9687, 2007). ??The eAG is not equivalent to a fasting glucose. Blood 11/19/2021 4:26 AM CDT 11/19/2021 4:51 AM CDT us Hawa Garcia DO LAB BLOOD ORDERABLES Final Re sult Performing Organization Address [facility] Co de Phone Number [facility] [address] [facility] [place] [address] * Screening Mammogram W Varun (05/31/2016 9:20 AM CDT) Anatomical Region Laterality Modality Breast N/A Mammography 05/31/2016 9:20 AM CDT Narrative 06/01/2016 1:07 PM CDT ERICH MCCOY M.D. FINAL REPORT ACC# ??Date Time ??Exam [id number] May 31, 2016 09:20:00 [facility] [id number] Bilateral screen w varun ?? Technologist(s): Corina Kim; ; EXAMINATION: ??Mammogram Technique: Bilateral Full-Field Digital Screening Mammogram and Digital Breast Tomosynthesis were performed. ??Views obtained: ??bilateral craniocaudal and bilateral mediolateral oblique. ??Computer Aided Detection of the 2D images was performed with Voddler.3 version 9.3. Mammogram Findings: The present examination has been compared to prior imaging studies performed at [facility] on 03/25/2015 and 02/16/2012, and at [facility] [address] on 01/26/2014. There are scattered areas of fibroglandular density. There is no suspicious abnormality in either breast. IMPRESSION: ??Annual screening mammography is recommended. OVERALL FINAL ASSESSMENT: BI-RADS CATEGORY 1: ??Negative. Requested By: Dictated By: ?? ERICH MCCOY M.D. ??on Jun 01 2016 ??1:07P This document has been electronically signed by: ERICH MCCOY M.D. on Jun 01 2016 ??1:07P [id number] Procedure Note Provider, MD [place] - 12/20/2016 ERICH MCCOY M.D. FINAL REPORT ACC# Date Time Exam [id number] May 31, 2016 09:20:00 [facility] [id number] Bilateral screen w varun Technologist(s): Corina Kim; ; EXAMINATION: Mammogram Technique: Bilateral Full-Field Digital Screening Mammogram and Digital Breast Tomosynthesis were performed. Views obtained: bilateral craniocaudaland bilateral mediolateral oblique. Computer Aided Detection of the 2Dimages was performed with Voddler.3 version 9.3. Mammogram Findings: The present examination has been compared to prior imaging studies performed at [facility] on 03/25/2015 and 02/16/2012, and at [facility] [address] on 01/26/2014. There are scattered areas of fibroglandular density. There is no suspicious abnormality in either breast. IMPRESSION: Annual screening mammography is recommended. OVERALL FINAL ASSESSMENT: BI-RADS CATEGORY 1: Negative. Requested By: Dictated By: ERICH MCCOY M.D. on Jun 01 2016 1:07P This document has been electronically signed by: ERICH MCCOY M.D. on Jun 01 2016 1:07P [id number] us Historical Provider MD [facility] MAMMO PROCEDURES Jacqueline l Result from Last 3 Months or Most Recently Relevant to Health Maintenance Insurance MEDICARE IDPA IDMN Care Teams Nurse Staff Industrial Relationship Specialty Start Date End Date Erica Reno NP [address] [place] [address] PCP - General Nurse Practitioner 07/04/21
--- OUTSIDE RECORDS SUMMARY | 2024-09-04 18:31 | XMS_ITS | Encounter Summary ---
Author Organization [facility] Address [address] [place] [address] Care Team Providers Care Candy Separator Hard Name Role Phone Jose Elias Samaniego RN Unavailable Unavailab Erica Tiwari [facility] Primary Care Provi leonard Yamileth Franks CUSTOMER RESOURCE SPECIALIST[facility] Primary Care Provider [phone] Jen Kam CUSTOMER RESOURCE SPECIALIST[facility] Primary Care Provider Pedro Cordero MD Unavailable [phone] Abigail Thibodeaux MD Unavailable Dutch (Cc)Mindy Unavailable Unavailable Alen Cox MD Unavailable Mindy Salgado PA-C Unavailable [phone] Connor Higgins MD Unavailable Reason for Visit * Reason Onset Date Comments Order Information Change 01/03/2019 Encounter Details Date Type Department Care Team (Late st Contact Info) Description 01/03/2019 Telephone [facility] [address] [place] [address] Melanie Thomas Order Information Change Social History Tobacco Use Types Packs/Day Years Used Date Smoking Tobacco: Former Cigarettes 1 30 0 1975 - 2005 Smokeless Tobacco: Former Comments:quit 7 years ago Alcohol Use Standard Drinks/Week Comments Yes 0 (1 standard drink = 0.6 oz pur e alcohol) occassional drinker Sex and Gender Information Value Date Recorded Sex Assigned at Female 10/22/2021 5:54 AM PROGRAM SPECIALIST Gender Identity Female 10/22/2021 5:54 AM PROGRAM SPECIALIST Sexual Orientation Not on file documented as [...] encounter Miscellaneous Notes * Telephone Encounter - Melanie Thomas - 01/03/2019 1:44 PM CDT Re: US LOWER EXT LEFT VENOUS DOPPL Hi there... I'm unable to schedule this test as ordered... I spoke to Coni in the Vascular Laband since it is a Vascular study it should be changed to.... VAS LEFT DUPLEX LE [id number] Thanks! documented in this encounter Plan of Treatment Upcoming Encounters Date Type Department Care Team (Late st Contact Info) Description 09/17/2024 3:00 PM PROGRAM SPECIALIST Office Visit [facility] - Neurology [address] [place] [address], [place] [address] Connor Higgins MD [address] [place] [address] [place] [address] documented as of this encounter Visit Diagnoses Not on filedocumented in this encounter Care Teams Candy Separator Hard Relationship Specialty Start Date End Date Erica Reno APRN-OIL LABORATORY ANALYST PCP - General 02/06/18 09/26/21 Yamileth Franks, CUSTOMER RESOURCE SPECIALIST-OIL LABORATORY ANALYST [address] [place] [address] PCP - General 09/27/21 11/08/21 Jen Kam, CUSTOMER RESOURCE SPECIALIST-OIL LABORATORY ANALYST [address] [facility] [address] [place] [address] PCP - General Nurse Practitioner 11/09/21 Jose Elias Samaniego, RN 06/04/17 Pedro Cordero MD [address] [facility] [address] [place] [address] Cardiology 01/14/22 Abigail Thibodeaux MD [address] [place] [address] Psychiatry 01/14/22 Dutch (Cc)Mindy Gastroenterology 01/14/22 01/14/22 Alen Cox MD [address] [facility] [address], [facility] [place] [address] Urology 01/14/22 Mindy Salgado PAHodaC [address] [facility] [address] [place] [address] Physician Web Feeder Gastroenterology 01/14/22 Connor Higgins MD [address] [facility] [address] [place] [address] Neurology 01/14/22 documented as of this encounter
--- OUTSIDE RECORDS SUMMARY | 2024-09-04 18:31 | XMS_ITS | Referral Summary ---
Author Organization [facility] Address [address] [place] [address] Care Team Providers Care Wheelchair Van Driver Name Role Phone Erica Reno NP Primary [...] N/V. Assessment & Plan (09/01/2021 11:19 AM ADJUSTER): -Hx of stones in the past. Reports she had 3-4 stones removed with [facility] but 2mm stone remained. -Patient is very interested in having stone removed to see if this will help with reduction of infections. PLAN: -Will discuss with urologist; however, given length of UTI's occurring since she was a child, unsure if this would help to reduce. Atrial flutter ([facility]) 06/30/2021 Overview (09/01/2021): Last Assessment [...] medication. Assessment & Plan (09/01/2021 11:20 AM ADJUSTER): -Has had cysto 03/2021 and CTU 04/2021. [...] 07/11/2016 Female hypogonadism 06/24/2016 Bipolar 2 disorder ([facility]) 01/15/2016 Glaucoma of both eyes 10/15/2015 Type 2 diabetes mellitus with hyperglycemia ([facility]) 07/15/2015 Essential hypertension 01/11/2015 Overview (09/01/2021): Last Assessment & Plan: Stable off HCTZ continue metoprolol 50mg BID. Would address UTI before resuming HCTZ. BP controlled in clinic, BP log and [employer] message in 1-2 weeks. 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 T12 compression fracture 09/09/2013 Parkinson's disease 06/04/2013 Coronary artery disease invo lving campo coronary artery of campo heart 11/04/2012 Cystocele 03/15/2011 Rectocele 03/15/2011 Urge incontinence 03/15/2011 Assessment & Plan (09/01/2021 10:54 AM ADJUSTER): -Previously on myrbetriq but stopped due to [...] legs 08/18/2009 GERD (gastroesophageal reflux disease) 8 Social History Tobacco Use Types Packs/Day Years [...] on file Legal Sex Female 2:03 AM ADJUSTER Gender Identity Female 09/01/2021 10:01 AM ADJUSTER Sexual Orientation Not on file Last Filed [...] 03/21/2022 9:39 AM CDT Plan of Treatment Not on file Medical Devices Implanted Type Area Television Receiver Analyzer Device Identifier Shelf Expiration Date Model / Serial / Lot Total Joint Other - see comments Right: Knee Neck Fusion Other - see comments Neck Explanted Type Area Television Receiver Analyzer Device Identifier Shelf Expiration Date Model / Serial / Lot [employer] [id number] Universa 6fr 24cm Radiopaque Graduate Firm Monofilament Tether - [id number] Implanted:Qty: 1 on 11/16/2021 by Alen Cox MD at [facility] Explanted:Qty: 1 on 11/17/2021 Left: Ureter [employer] 07/05/2024 [id number] / / [id number] Procedures Procedure Name Priority Date/Time Associated Diagnosis [...] was last reviewed 2021. Testing performed by: [facility], [address] [place] [address]., [id number] Blood 02/15/2022 10:0 8 AM CDT 02/15/2022 10:27 AM CDT us Alen Cox MD LAB BLOOD ORDERABLES Final Resul t Performing Organization Address City/[facility] Co de Phone Number [place] [address] [facility] [email or web address] [address] * (ABNORMAL) Hemoglobin A1c (11/19/2021 [...] children were not included. ?? (Diabetes Care 31:8209-2170, 2007). ??The eAG is not equivalent to a fasting glucose. Blood 11/19/2021 4:26 AM CDT 11/19/2021 4:51 AM CDT us Hawa Garcia DO LAB BLOOD ORDERABLES Final Re sult [facility] [address] [facility] [email or web address] [address] * Screening Mammogram W Varun (05/31/2016 9:20 AM CDT) Anatomical Region Laterality Modality Breast N/A Mammography 05/31/2016 9:20 AM CDT Narrative 06/01/2016 1:07 PM CDT ERICH MCCOY M.D. FINAL REPORT ACC# ??Date Time ??Exam [id number] May 31, 2016 09:20:00 [facility] [id number] Bilateral screen w varun ?? Technologist(s): Corina Kim; ; EXAMINATION: ??Mammogram Technique: Bilateral Full-Field Digital Screening Mammogram and Digital Breast Tomosynthesis were performed. ??Views obtained: ??bilateral craniocaudal and bilateral mediolateral oblique. ??Computer Aided Detection of the 2D images was performed with [employer].3 version 9.3. Mammogram Findings: The present examination has been compared to prior imaging studies performed at [facility] on 03/25/2015 and 02/16/2012, and at [facility] [address] on 01/26/2014. There are scattered areas of fibroglandular density. There is no suspicious abnormality in either breast. IMPRESSION: ??Annual screening mammography is recommended. OVERALL FINAL ASSESSMENT: BI-RADS CATEGORY 1: ??Negative. Requested By: Dictated By: ?? ERICH MCCOY M.D. ??on Jun 01 2016 ??1:07P This document has been electronically signed by: ERICH MCCOY M.D. on Jun 01 2016 ??1:07P [id number] Procedure Note Provider, MD [place] - 12/20/2016 ERICH MCCOY M.D. FINAL REPORT ACC# Date Time Exam [id number] May 31, 2016 09:20:00 [facility] [id number] Bilateral screen w varun Technologist(s): Corina Kim; ; EXAMINATION: Mammogram Technique: Bilateral Full-Field Digital Screening Mammogram and Digital Breast Tomosynthesis were performed. Views obtained: bilateral craniocaudaland bilateral mediolateral oblique. Computer Aided Detection of the 2Dimages was performed with [employer].3 version 9.3. Mammogram Findings: The present examination has been compared to prior imaging studies performed at [facility] on 03/25/2015 and 02/16/2012, and at [facility] [address] on 01/26/2014. There are scattered areas of fibroglandular density. There is no suspicious abnormality in either breast. IMPRESSION: Annual screening mammography is recommended. OVERALL FINAL ASSESSMENT: BI-RADS CATEGORY 1: Negative. Requested By: Dictated By: ERICH MCCOY M.D. on Jun 01 2016 1:07P This document has been electronically signed by: ERICH MCCOY M.D. on Jun 01 2016 1:07P [id number] us Historical Provider MD [facility] MAMMO PROCEDURES Jacqueline l Result from Last 3 Months or Most Recently Relevant to Health Maintenance Insurance [facility]ICARE [facility] Address: [address] [address] [place] [address] IDPA IDPA Care Teams Wheelchair Van Driver Relationship Specialty Start Date End Date Erica Reno NP [address] [facility] [address] [place] [address] PCP - General Nurse Practitioner 07/04/21
--- OUTSIDE RECORDS SUMMARY | 2024-09-04 18:31 | XMS_ITS | Clinical Summary ---
Author Organization [facility] Address [facility]. [place], [place] [address] [place] [address] Care Team Providers Care Deputy District Customs Director Name Role Phone Erica Reno NP Primary Care Provider [phone] Pedro Cordero MD Unavailable [phone] Danika Higgins MD Unavailable [phone] Allergies Active Allergy Reactions Criticality Noted Date Comments Tape Contact Dermatitis 06/07/2018 Chlorthalidone Rash Medium 11/19/2020 Ciprofloxacin GI Upset 11/12/2017 And migraines Fentanyl And Related Anaphylaxis High 11/12/2017 Ibuprofen Other (see comment),Rash High 02/05/2019 due to renal failure Other reaction(s): Other ??due to renal failure Other reaction(s): Other ??due to renal failure Other reaction(s): Other ??due to renal failure Contraindicated due to renal failure Iodinated Contrast Media Syncope Medium 02/07/2010 Other reaction(s): Syncope Cephalexin Shortness of Breath High 11/12/2017 Levofloxacin Hives 11/12/2017 Metformin Diarrhea 03/23/2022 Methadone GI Upset 11/12/2017 Morphine Hives 11/12/2017 Penicillins Anaphylaxis High 11/12/2017 Sulfa Antibiotics Hives 11/12/2017 Medications albuterol sulfate HFA 108 (90 BASE) MCG/ACT inhaler Inhale 2 puffs into the lungs every 6 (six) hours as needed for Wheezing. Active atorvastatin 80 MG tablet Take 1 tablet (80 mg total) by mouth nightly at bedtime. Active Cholecalciferol (VITAMIN D) 1000 UNIT tablet Take 1 tablet (1,000 Units total) by mouth daily. Active clonazePAM 0.5 MG tablet Take 2 tablets (1 mg total) by mouth nightly at bedtime. Active ezetimibe 10 MG tablet Take 1 tablet (10 mg total) by mouth daily. Active lamotrigine 100 MG tablet Take 1 tablet (100 mg total) by mouth daily. Active lamotrigine 100 MG tablet Take 2 tablets (200 mg total) by mouth nightly at bedtime. Active lisinopril 20 MG tablet Take 1 tablet (20 mg total) by mouth daily. Active metoprolol succinate 50 MG 24 hr tablet Take 0.5 tablets (25 mg total) by mouth daily. Active multi vitamin/mineral s (THERA-M ENHANCED) tablet Take 1 tablet by mouth daily. Active omeprazole 20 MG capsule Take 1 capsule (20 mg total) by mouth daily. Active pramipexole 1 MG tabletIndicatio ns:1 TAB MORNING, 2 TABS BEDTIME Take 1 tablet (1 mg total) by mouth 3 (three) times daily. Indications: 1 TAB MORNING, 2 TABS BEDTIME Active triamterene-hyd rochlorothiazid e 37.5-25 MG tablet Take 1 tablet by mouth daily. Active aspirin 81 MG chewable tablet Chew 1 tablet (81 mg total) by mouth daily. Active atropine 1 % ophthalmic solution Place 1 drop under the tongue 2 (two) times a day. For excessive saliva 2 Active carbidopa-levod opa (SINEMET) 25-100 MG tablet Take 1 tablet by mouth 3 (three) times daily. 2 Active cetirizine (ZYRTEC) 10 MG tablet Take 1 tablet (10 mg total) by mouth daily. Active famotidine (PEPCID) 40 MG tablet Take 1 tablet (40 mg total) by mouth daily. 2 Active lurasidone (LATUDA) 60 MG tablet Take 1 tablet (60 mg total) by mouth daily with breakfast. 2 Active pimavanserin (NUPLAZID) 34 MG Cap capsule Take 1 capsule (34 mg total) by mouth daily. 3 Active pantoprazole EC (PROTONIX) 40 MG tablet Take 1 tablet (40 mg total) by mouth daily. 2 Active zolpidem CR (AMBIEN CR) 12.5 MG tablet Take 1 tablet (12.5 mg total) by mouth nightly. Active insulin glargine (LANTUS) 100 UNIT/ML injection (VIAL) Inject 20 Units into the skin nightly at bedtime. Active vitamin B-12 (CYANOCOBALAMIN ) 100 MCG tablet Take 0.5 tablets (50 mcg total) by mouth daily. Active acetaminophen (TYLENOL) 325 MG tablet Take 2 tablets (650 mg total) by mouth every 6 (six) hours as needed for Pain. Active traMADol (ULTRAM) 50 MG tabletIndicatio ns:Acute Pain < 7 Day Supply Take 1 tablet (50 mg total) by mouth every 6 (six) hours as needed for Pain. Indications: Acute Pain < 7 Day Supply 20 tablet 3 Active Active Problems No known active problems Family History Medical History Relation Comments Depression Brother Hypertension Brother Stroke Brother Aneurysm Father Depression Father Cancer Mother Depression Mother Diabetes Mother Heart Disease Mother Hyperlipidemia Mother Hypertension Mother Parkinson's Disease Mother Depression Sister Diabetes Sister Hyperlipidemia Sister Hypertension Sister Relation Status Comments Brother Father Mother Sister Social History Tobacco Use Types Packs/Day Years Used Date Smoking Tobacco: Former Cigarettes 1 30 0 11/15/1975 - 11/14/2005 Smokeless Tobacco: Never Comments:STOPPED 11 YRS AGO Alcohol Use Standard Drinks/Week Comments Yes 0 (1 standard drink = 0.6 oz pur e alcohol) rare-1 every 2 months Comments No Sex and Gender Information Value Date Recorded Sex Assigned at Not on file Legal Sex Female 12:51 PM CDT Gender Identity Not on file Sexual Orientation Not on file Last Filed Vital Signs Vital Sign Reading Time Taken Comments Blood Pressure 109/80 12/08/2022 11:29 AM CDT Pulse 78 12/08/2022 11:29 AM CDT Temperature 36.2 ??C (97.2 ??F) 12/08/2022 11:29 AM C DT Respiratory Rate 18 12/08/2022 11:29 AM CDT Oxygen Saturation 100% 12/08/2022 11:29 AM CDT Inhaled Oxygen Concentration - - Weight 68.3 kg (150 lb 9.2 oz) 12/08/2022 7:45 A M CDT Height 170.2 cm (5' 7 ) 12/08/2022 7:45 AM CDT Body Mass Index 23.58 12/08/2022 7:45 AM CDT Plan of Treatment Health Maintenance Due Date Last Done Comments Colorectal Cancer Screening Colonoscopy (10 Years) 1956 Hepatitis C 1974 Mammogram Screening 1996 RSV Immunization or 60+ Years (1 - Risk 60-74 years 1-dose series) 2016 Annual Medicare Wellness Visit 2021 Dexa Scan (General) 2021 Zoster Vaccines (2 of 2) 02/02/2022 12/08/2021 Pneumococcal Vaccine: 65+ Years (3 of 3 - PPSV23 or PCV20) 11/06/2023 11/05/2018, 10/09/2018, 01/11/2015, Additional history exists COVID-19 Vaccine ( season) 2024 01/27/2022, 07/19/2021, 11/12/2020, Additional history exists Influenza Adult (#1) 2024 06/07/2021, 05/25/2020, 05/19/2019, Additional history exists DTaP, Tdap and Td Vaccines (3 - Td or Tdap) 12/09/2031 12/08/2021, 05/17/2011, 2002, Additional history exists Meningococcal Vaccine Aged Out No adriano anna eligible based on patient's age to complete this topic RSV Immunizations Under 20 Months Aged Out No longer eligible based on patient's age to complete this topic Medical Devices Implanted Type Area Papier Mache Molder Device Identifier Shelf Expiration Date Model / Serial / Lot Knee Components Knee Components Lens Lens Insurance MEDICAID [place] [address] [id number] Care Teams Deputy District Customs Director Relationship Specialty Start Date End Date Erica Reno MEAT AND POULTRY INSPECTOR [address] OF [facility] [address] PCP - General NURSE PRACTITIONER 11/30/22 Pedro Cordero MD [address] [facility] [address] [place] [address] INTERNAL MEDICINE 11/30/22 Danika Higgins MD [address] [facility] [address] [place] [address] NEUROLOGY 11/30/22
--- OUTSIDE RECORDS SUMMARY | 2024-09-04 18:31 | XMS_ITS | Encounter Summary ---
Author Organization [facility] Address [address] [facility] [place] [address] Care Team Providers Care Geriatric Care Manager Name Role Phone Jose Elias Samaniego RN Unavailable Unavailab Erica Tiwari LOG SKIDDER-MORTUARY TECHNICIAN Primary Care Provi leonard Yamileth Franks LOG SKIDDER-MORTUARY TECHNICIAN Primary Care Provider [phone] Jen Kam LOG SKIDDER-[facility] Primary Care Provider Pedro Cordero MD Unavailable [phone] Abigail Thibodeaux MD Unavailable Dutch (Cc)Mindy Unavailable Unavailable Alen Cox MD Unavailable Mindy Salgado PA-C Unavailable Connor Higgins MD Unavailable Reason for Visit * Reason Onset Date Comments MEDICATION REFILL 09/26/2019 Encounter Details Date Type Department Care Team (Late st Contact Info) Description 09/26/2019 Refill [facility] [address] [place] [address] Erica Reno, LOG SKIDDER-MORTUARY TECHNICIAN [address] DIV OF [place] [address] MEDICATION REFILL Social History Tobacco Use Types [...] Sex Assigned at Female 10/22/2021 5:54 AM RETAIL SHIFT SUPERVISOR Gender Identity Female 10/22/2021 5:54 AM RETAIL SHIFT SUPERVISOR Sexual Orientation Not on file documented as [...] Miscellaneous Notes * Telephone Encounter - Alma Lennon RN - 09/26/2019 2:21 PM RETAIL SHIFT SUPERVISOR Reordered [place] SHIFT SUPERVISOR documented in this encounter Plan of Treatment Upcoming Encounters Date Type Department Care Team (Late st Contact Info) Description 09/17/2024 3:00 PM RETAIL SHIFT SUPERVISOR Office Visit [facility] - Neurology [address] [place] [address], [facility] [place] [address] Connor Higgins MD [address] [place] [address] [place] [address] documented as of this encounter Goals Goal Patient Goal Type Associated Problems Recent Progress Patient-Stated? Author Medication Management General On track( 022 10:41 AM CDT) Nmarata Turner, RN Note: Expected end date: ongoing Interventions: Take all medications as prescribed Let your doctor know right away about any changes in your medications Make sure to request a refill of your medication at least one week prior to your last dose documented as of this encounter Visit Diagnoses Not on filedocumented in this encounter Care Teams Geriatric Care Manager Relationship Specialty Start Date End Date Erica Reno, LOG SKIDDER-MORTUARY TECHNICIAN PCP - General 02/06/18 09/26/21 Yamileth Franks, LOG SKIDDER-[facility] [address] [place] [address] PCP - General 09/27/21 11/08/21 Jen Kam, LOG SKIDDER-[facility] [address] [facility] [address] [place] [address] PCP - General Nurse Practitioner 11/09/21 Jose Elias Samaniego, RN 06/04/17 Pedro Cordero MD [address] [facility] [address] [place] [address] Cardiology 01/14/22 Abigail Thibodeaux MD [address] [place] [address] Psychiatry 01/14/22 Dutch (Cc)Mindy Gastroenterology 01/14/22 01/14/22 Alen Cox MD [address] [facility] [address], [facility] [place] [address] Urology 01/14/22 Mindy Salgado PA-C [address] [place] [address] Physician Search Developer Gastroenterology 01/14/22 Connor Higgins MD [address] [place] [address] Neurology 01/14/22 documented as of this encounter
--- OUTSIDE RECORDS SUMMARY | 2024-09-04 18:31 | XMS_ITS | Encounter Summary ---
Author Organization [facility] Address [address] [facility] [address] Care Team Providers Care Ornamenter Name Role Phone Siri Wolfe MD Primary Care Provider [phone] Jose Elias Samaniego RN Unavailable Unavailab Erica Tiwari [facility] Primary Care Provi leonard Yamileth Franks [facility] Primary Care Provider [phone] Jen Kam [facility] Primary Care Provider Pedro Cordero MD Unavailable [phone] Abigail Thibodeaux MD Unavailable Dutch (Cc)Mindy Unavailable Unavailable Alen Cox MD Unavailable Mindy Salgado PA-C Unavailable Connor Higgins MD Unavailable Reason for Visit * Reason Onset Date Comments MEDICATION REFILL 12/12/2017 Encounter Details Date Type Department Care Team (Late st Contact Info) Description 12/12/2017 Refill [facility] [address] [place] [address] Siri Wolfe MD [address] [place] [address] MEDICATION REFILL Social History Tobacco Use Types Packs/Day Years Used Date Smoking Tobacco: Former Cigarettes 1 30 0 1975 - 2005 Smokeless Tobacco: Never Comments:quit 7 years ago Alcohol Use Standard Drinks/Week Comments Yes 0 (1 standard drink = 0.6 oz pur e alcohol) occassional drinker Sex and Gender Information Value Date Recorded Sex Assigned at Female 10/22/2021 5:54 AM HERPETOLOGY TEACHER Gender Identity Female 10/22/2021 5:54 AM HERPETOLOGY TEACHER Sexual Orientation Not on file documented [...] st Contact Info) Description 09/17/2024 3:00 PM HERPETOLOGY TEACHER Office Visit [facility] - Neurology [address] [place] [address], [place] [address] Connor Higgins MD [address] [place] [address] [place] [address] documented as of this encounter Visit Diagnoses Not on filedocumented in this encounter Care Teams Ornamenter Relationship Specialty Start Date End Date Siri Wolfe MD [address] [place], [place] [id number] PCP - General 06/14/11 02/05/18 Erica Reno APRN-BODY WORKER PCP - General 02/06/18 09/26/21 Yamileth Franks, LITIGATION ASSOCIATE-BODY WORKER [address] [place] [address] PCP - General 09/27/21 11/08/21 Jen Kam, LITIGATION ASSOCIATE-BODY WORKER [address] [facility] [address] [place] [address] PCP - General Nurse Practitioner 11/09/21 Jose Elias Samaniego, RN 06/04/17 Pedro Cordero MD [address] [facility] [address] [place] [address] Cardiology 01/14/22 Abigail Thibodeaux MD [address] [place] [address] Psychiatry 01/14/22 Dutch (Cc)Mindy Gastroenterology 01/14/22 01/14/22 Alen Cox MD [address] [facility], [facility] [place] [address] Urology 01/14/22 Mindy Salgado PA-C [address] [facility] [address] DIV [place] [address] Physician Feeder Switchboard Operator Gastroenterology 01/14/22 Connor Higgins MD [address] [facility] [address] [place] [address] Neurology 01/14/22 documented as of this encounter
--- OUTSIDE RECORDS SUMMARY | 2024-09-04 18:31 | XMS_ITS | Encounter Summary ---
Author Organization [facility] Address [address] [facility] [place] [address] Care Team Providers Care Nurse Practitioner Manager Name Role Phone Jose Elias Samaniego RN Unavailable Unavailab Erica Tiwari SENIOR TECHNICAL RECRUITER-BOLT MAN Primary Care Provi leonard Yamileth Franks SENIOR TECHNICAL RECRUITER-BOLT MAN Primary Care Provider [phone] Jen Kam SENIOR TECHNICAL RECRUITER-[facility] Primary Care Provider Pedro Cordero MD Unavailable [phone] Abigail Thibodeaux MD Unavailable Dutch (Cc)Mindy Unavailable Unavailable Aeln Cox MD Unavailable Mindy Salgado PA-C Unavailable Connor Higgins MD Unavailable Reason for Visit * Reason Onset Date Comments MEDICATION REFILL 06/17/2019 Encounter Details Date Type Department Care Team (Late st Contact Info) Description 06/17/2019 Refill [facility] [address] [place] [address] Erica Reno, SENIOR TECHNICAL RECRUITER-BOLT MAN [address] DIV [place] [id number] MEDICATION REFILL Social History Tobacco Use Types [...] Sex Assigned at Female 10/22/2021 5:54 AM DISTRIBUTION SUPERINTENDENT Gender Identity Female 10/22/2021 5:54 AM DISTRIBUTION SUPERINTENDENT Sexual Orientation Not on file documented as [...] st Contact Info) Description 09/17/2024 3:00 PM DISTRIBUTION SUPERINTENDENT Office Visit [facility] - Neurology [address] [place] [address], [facility] [place] [address] Connor Higgins MD [address] [place] [address] [place] [address] documented as of this encounter Goals Goal [...] on filedocumented in this encounter Care Teams Nurse Practitioner Manager Relationship Specialty Start Date End Date Erica Reno, SENIOR TECHNICAL RECRUITER-[facility] PCP - General 02/06/18 09/26/21 Yamileth Franks, SENIOR TECHNICAL RECRUITER-[facility] [address] [place] [phone] PCP - General 09/27/21 11/08/21 Jen Kam, SENIOR TECHNICAL RECRUITER-[facility] [address] [facility] [address] [place] [address] PCP - General Nurse Practitioner 11/09/21 Jose Elias Samaniego, RN 06/04/17 Pedro Cordero MD [address] [facility] [address] [place] [address] Cardiology 01/14/22 Abigail Thibodeaux MD [address] [place] [address] Psychiatry 01/14/22 Dutch (Cc)Mindy Gastroenterology 01/14/22 01/14/22 Alen Cox MD [address] [facility] 11[facility], [facility] [address] Urology 01/14/22 Mindy Salgado, PAHodaC [address] [facility] [address] [place] [address] Physician Piece Jobber Gastroenterology 01/14/22 Connor Higgins MD [address] [facility] [address] [place] [address] Neurology 01/14/22 documented as of this encounter
--- OUTSIDE RECORDS SUMMARY | 2024-09-04 18:31 | XMS_ITS | Encounter Summary ---
Author Organization [facility] Address [address] [facility] [facility] [place] [address] Care Team Providers Care Test Engineering Intern Name Role Phone Jose Elias Samaniego RN Unavailable Unavailab Erica Tiwari UNDERWEAR FINISHER-[facility] Primary Care Provi leonard Yamileth Franks UNDERWEAR FINISHER-[facility] Primary Care Provider [phone] Jen Kam UNDERWEAR FINISHER-[facility] Primary Care Provider Pedro Cordero MD Unavailable [phone] Abigail Thibodeaux MD Unavailable Dutch (Cc)Mindy Unavailable Unavailable Alen Cox MD Unavailable Mindy Salgado PA-C Unavailable Connor Higgins MD Unavailable Encounter Details Date Type Department Care Team (Late st Contact Info) Description 07/04/2019 Telephone [email or web address] [address] [place] [address] Víctor Lacey MD [address] [facility]YCHIATRY [facility] [place] [address] Social History Tobacco Use Types Packs/Day Years [...] Sex Assigned at Female 10/22/2021 5:54 AM COOK 3 PASTRY Gender Identity Female 10/22/2021 5:54 AM COOK 3 PASTRY Sexual Orientation Not on file documented as [...] encounter Miscellaneous Notes * Telephone Encounter - Sujatha Moyer - 07/04/2019 8:20 AM CST PT called stating that she missed a call for about signing some paper work. PT washoping that the doctor could give her a call back kaelyn. PT CBN:[phone] 3 PASTRY documented in this encounter Plan of Treatment Upcoming Encounters Date Type Department Care Team (Late st Contact Info) Description 09/17/2024 3:00 PM COOK 3 PASTRY Office Visit [facility] - Neurology [address] [place] [address], [place] [place] [address] Connor Higgins MD [address] [place] [address] [place] [address] documented as of this encounter Goals Goal [...] on filedocumented in this encounter Care Teams Test Engineering Intern Relationship Specialty Start Date End Date Erica Reno, UNDERWEAR FINISHER-[facility] PCP - General 02/06/18 09/26/21 Yamileth Franks, UNDERWEAR FINISHER-[facility] [address] [place] [address] PCP - General 09/27/21 11/08/21 Jen Kam, UNDERWEAR FINISHER-[facility] [address] [facility] [address] [place] [phone] PCP - General Nurse Practitioner 11/09/21 Jose Elias Samaniego, RN 06/04/17 Pedro Cordero MD [address] [facility] [address] [place] [address] Cardiology 01/14/22 Abigail Thibodeaux MD [address] [place] [address] Psychiatry 01/14/22 Dutch (Cc)Mindy Gastroenterology 01/14/22 01/14/22 Alen Cox MD [address] [facility] [address], [place] [address] Urology 01/14/22 Mindy Salgado PA-C [address] DIV [place] [address] Physician Body Man Gastroenterology 01/14/22 Connor Higgins MD [address] [place] [address] Neurology 01/14/22 documented as of this encounter
--- OUTSIDE RECORDS SUMMARY | 2024-09-04 18:31 | XMS_ITS | Encounter Summary ---
Author Organization [facility] Address [address] [facility] [place] [address] Care Team Providers Care Recruitment Assistant Name Role Phone Jose Elias Samaniego RN Unavailable Unavailab Erica Tiwari SALES REPRESENTATIVE CONSULTANT-[facility] Primary Care Provi leonard Yamileth Franks SALES REPRESENTATIVE CONSULTANT-[facility] Primary Care Provider [phone] Jen Kam SALES REPRESENTATIVE CONSULTANT-[facility] Primary Care Provider Pedro Cordero MD Unavailable [phone] Abigail Thibodeaux MD Unavailable Dutch (Cc)Mindy Unavailable Unavailable Alen Cox MD Unavailable Mindy Salgado PA-C Unavailable Connor Higgins MD Unavailable Encounter Details Date Type Department Care Team (Late st Contact Info) Description 05/10/2021 Telephone [facility] [address] [place] [address] Vanesa Hinojosa MD [address] [place] [address] Social History Tobacco Use Types Packs/Day Years [...] Sex Assigned at Female 10/22/2021 5:54 AM AUTOMAT CAR ATTENDANT Gender Identity Female 10/22/2021 5:54 AM AUTOMAT CAR ATTENDANT Sexual Orientation Not on file COVID-19 Exposure [...] * Telephone Encounter - Flavia Swanson - 05/10/2021 8:38 AM CDT Current Provider name: Dr. Hinojosa Reason for call: Ms. Ivonne Santos thinks she has another UTI, this morn there's a flare up. Do you think she needs to have a URINE test. She does have standing orders from her urologist. Please advise. Patient Call Back number: [phone] documented in this encounter Plan of Treatment Upcoming Encounters Date Type Department Care Team (Late st Contact Info) Description 09/17/2024 3:00 PM AUTOMAT CAR ATTENDANT Office Visit [facility] - Neurology [address] [place] [address], [place] [address] Connor Higgins MD [address] [place] [address] documented as of this encounter [...] on filedocumented in this encounter Care Teams Recruitment Assistant Relationship Specialty Start Date End Date Erica Reno SALES REPRESENTATIVE CONSULTANT-DIE REPAIR MACHINIST PCP - General 02/06/18 09/26/21 Yamileth Franks, SALES REPRESENTATIVE CONSULTANT-DIE REPAIR MACHINIST [address] [place] [address] PCP - General 09/27/21 11/08/21 Jen Kam SALES REPRESENTATIVE CONSULTANT-DIE REPAIR MACHINIST [address] [facility] [address] [place] [phone] PCP - General Nurse Practitioner 11/09/21 Jose Elias Samaniego, RN 06/04/17 Pedro Cordero MD [address] [facility] [address] [place] [address] Cardiology 01/14/22 Abigail Thibodeaux MD [address] [place] [address] Psychiatry 01/14/22 Dutch (Cc)Mindy Gastroenterology 01/14/22 01/14/22 Alen Cox MD [address] [facility] [address], [place] [address] Urology 01/14/22 Mindy Salgado PA-C [address] [place] [address] Physician Inventory Technician Gastroenterology 01/14/22 Connor Higgins MD [address] [place] [address] Neurology 01/14/22 documented as of this encounter
--- OUTSIDE RECORDS SUMMARY | 2024-09-04 18:31 | XMS_ITS | Encounter Summary ---
Author Organization [facility] Address [address] [facility] [place] [address] Care Team Providers Care Commercial Credit Officer Name Role Phone Jose Elias Samaniego RN Unavailable Unavailab Erica Tiwari ROD MACHINE OPERATOR-[facility] Primary Care Provi leonard Yamileth Franks ROD MACHINE OPERATOR-[facility] Primary Care Provider [phone] Jen Kam ROD MACHINE OPERATOR-[facility] Primary Care Provider Pedro Cordero MD Unavailable [phone] Abigail Thibodeaux MD Unavailable Dutch (Cc)Mindy Unavailable Unavailable Alen Cox MD Unavailable Mindy Salgado PA-C Unavailable Connor Higgins MD Unavailable Encounter Details Date Type Department Care Team (Late st Contact Info) Description 10/22/2018 Telephone [facility] [address] [place] [address] Katalina Moreno MD [address] [facility] [place] [place] [address] Social History Tobacco Use Types Packs/Day Years Used Date Smoking Tobacco: Former Cigarettes 1 30 0 1975 - 2005 Smokeless Tobacco: Former Comments:quit 7 years ago Alcohol Use Standard Drinks/Week Comments Yes 0 (1 standard drink = 0.6 oz pur e alcohol) occassional drinker Sex and Gender Information Value Date Recorded Sex Assigned at Female 10/22/2021 5:54 AM PUBLIC STENOGRAPHER Gender Identity Female 10/22/2021 5:54 AM PUBLIC STENOGRAPHER Sexual Orientation Not on file documented as [...] No 06/04/2017 documented as of this encounter Patient Instructions * Patient Instructions* Katalina Moreno MD - 10/22/2018 4:07 PM CDT Our practice will be moving to [facility], 2nd Floor [address] [place] [address] starting on October 14. Our phone number will remain the same. Please let us know if you have any questions. documented in this encounter Miscellaneous Notes * Telephone Encounter - Katalina Moreno MD - 10/29/2018 10:36 AM CDT Sent the following [employer] message to patient on 10/29/18: Aj Santos, Of those medications you listed, the only one that we request you definitely STOP is clonazepam/Klonopin for about 7 days before the test. We would also like you to check with the doctor who prescribed you the lopressor to see if it wouldbe OK to stop this medication for about 5 days before the test. Lopressor does not interfere with the test itself, but in the unlikely event that there is a severe (i.e. Anaphylaxis) reaction, it canmake treatment of the reaction more difficult. - Lamotrigine, quetiapine, Norvast, and Maxide can be continued and will not interfere with the test. Thanks, Katalina Moreno MD Allergy and Immunology Fellow ----- Message ----- ? From: Ivonne Santos ? Sent: 10/29/2018?9:14 AM CDT ? To: Katalina Moreno MD Subject: RE:Penicillin Testing Clinic I take?Clonazepam, lamotriginne, andQuetiapine for sleep at night,?I also.takelopressor ,norvast andmaxide for blood pressure should I stop taking any of these meds * Telephone Encounter - Katalina Moreno MD - 10/22/2018 3:50 PM CDT Contacted patient via phone on 11/05/18 at 3:50 PM and spoke to patient directly. Shared with patient that there is an upcoming PCN testing clinic during the afternoon of 11/05/18. Patient is interested in this clinic and would like an appointment 1 PM. Reviewed instructions for PCN Testing Clinic with patient and will send the following letter and MyChart message to patient. Dear Ms. Santos, You are scheduled for the penicillin allergy testing clinic Clinic date: 11/05/18 Clinic time: 1 PM Clinic location: [facility], 2nd Floor [address] [place] [address] Your penicillin skin testing appointment takes about 3-4 hours to complete. Please bring materials to occupy your time. The testing involves 3 possible steps in the following order: skin scratch testing, injection in the skin, and taking a dose of amoxicillin. Each testing step is by an observation period tomonitor for any reactions. Depending on the results for each step, you may or may not complete all 3 steps. If your skin testing shows you are sensitive to penicillin, then you will NOT take the amoxicillin dose. Please wear a short-sleeved shirt as the skin tests will most likely be placed on your arms. We sent a prescription for amoxicillin to your local pharmacy, which will be used for the final step of testing. You are responsible for filling the medication and bringing it with you to the appointment. DO NOT TAKE AMOXCILLIN BEFORE THE APPOINTMENT. Please hold all following medications for at least 5 days prior to your appointment: oral antihistamines [Zyrtec (cetirizine), Claritin (loratadine), Roxanne (fexofenadine), Benadryl (diphenhydramine), Xyzal (levocetirizine), Clarinex (desloratadine)] nose antihistamines [Astelin/Astepro (azelastine), Patanase (olopatadine)] Please hold all following medications for at least 3 days prior to your appointment: eye anti-histamines: Ketotifen (Zaditor), Azelastine (Optivar), Olopatadine (Panatol, Pataday, Pazeo) Please hold all following medications for at least 2 days prior to your appointment oral antacids: Ranitidine (Zantac), Famotidine (Pepcid), Cimetidine (Tagamet) If you are taking any medication for anxiety, depression, heart disease, or high blood pressure, please call the the Allergy Immunology physician at [facility] which medication(s) you are taking. Medications for anxiety and depression may interfere with the skin test and may need to be hold for up to 14 days prior to your testing date. If you have any questions, concerns, or have not received the amoxicillin prescription, please don't hesitate to call or send us a message via [employer] Sincerely, Dr. Paul Moreno Allergy and Immunology Fellow documented in this encounter Plan of Treatment Upcoming Encounters Date Type Department Care Team (Late st Contact Info) Description 09/17/2024 3:00 PM PUBLIC STENOGRAPHER Office Visit [facility] - Neurology [address] [facility], [place] [address] Connor Higgins MD [address] [facility] [address]L [place] [address] documented as of this encounter Visit Diagnoses Not on filedocumented in this encounter Care Teams Commercial Credit Officer Relationship Specialty Start Date End Date Erica Reno, ROD MACHINE OPERATOR-OXYACETYLENE TORCH OPERATOR PCP - General 02/06/18 09/26/21 Yamileth Franks, ROD MACHINE OPERATOR-OXYACETYLENE TORCH OPERATOR [address] [place] [address] PCP - General 09/27/21 11/08/21 Jen Kam, ROD MACHINE OPERATOR-OXYACETYLENE TORCH OPERATOR [address] [facility] [address] [place] [address] PCP - General Nurse Practitioner 11/09/21 Jose Elias Samaniego, RN 06/04/17 Pedro Cordero MD [address] [facility] [address] [place] [address] Cardiology 01/14/22 Abigail Thibodeaux MD [address] [place] [address] Psychiatry 01/14/22 Dutch (Cc)Mindy Gastroenterology 01/14/22 01/14/22 Alen Cox MD [address] [facility] [address], [place] [address] Urology 01/14/22 Mindy Salgado PA-C [address] [place] [address] Physician Simulation Software Engineer Gastroenterology 01/14/22 Connor Higgins MD [address] [place] [address] Neurology 01/14/22 documented as of this encounter
--- OUTSIDE RECORDS SUMMARY | 2024-09-04 19:08 | XMS_ITS | Clinical Summary ---
Author Organization [facility] [employer] Friends Address [address] [facility] [place] [address] Care Team Providers Care Dater Assembler Name Role Phone Jose Elias Samaniego RN Unavailable Unavailab Jen Toor THERAPY AIDE-POOLING OPERATOR Primary Care Provider Pedro Cordero MD Unavailable [phone] Abigail Thibodeaux MD Unavailable Alen Cox MD Unavailable Mindy Salgado PA-C Unavailable Connor Higgins MD Unavailable Source Comments [facility],non-owned Affiliates and Associated Physician Practices is amultiple site organization consisting of ambulatory clinics and hospital sitesin [place], [place], [place] and [place]. This disclosure is being madepursuant to the Care Everywhere program and may not contain all information available regarding this patient. Last updated 18.[facility] Allergies Active Allergy Reactions Criticality Noted Date [...] hyperglycemia, without long-term current use of insulin ([facility]) Use as directed. 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, without long-term current use of insulin ([facility]) PEN NEEDLE USED FOR SUB-Q INJECTION 100 [...] failure,Paroxysmal atrial fibrillation (HCC),Coronary artery disease involving gambell coronary artery of gambell heart, unspecified whether angina present,TIA (transient ischemic [...] g 1 4 Active saline nasal spray ([place]; Baby [place]) 0.65 % nasal spray [place] 1 (one) spray into each nostril every [...] omplicated Urinary Tract Infection,verified with patient and professor of biostatistics that pt can take [facility]podoxime, [facility] 15 mins observation Take 1 (one) tablet by mouth 2 times daily for 5 days Reasons: Complicated Urinary Tract Infection, verified with patient and professor of biostatistics that pt can take cefpodoxime, [facility] with 15 mins observation 20 tablet 1 [...] 4 09/04/19 Discontinu ed(List Clean-Up) nystatin (Mycostatin) 292008 UNIT/ML suspension 4 09/04/19 25 Discontinu ed(List [...] bronchit is type 11/24/2022 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 Does endorse palpitations with activity, HR in the 70s, will increase BB to 100mg BID. Assessment & Plan (09/02/2021 8:42 AM MUSEUM EXHIBIT DESIGNER): Eliquis and BB. Does endorse palpitations with increase SPB. HR in the 50-60s will not further increase BB at this time. Assessment & Plan (06/30/2021 4:55 PM MUSEUM EXHIBIT DESIGNER): Eliquis and BB. Denies reoccurrence. Urinary tract [...] 10/09/2018 Assessment & Plan (06/30/2021 4:56 PM MUSEUM EXHIBIT DESIGNER): I have reached out to ID for [...] 01/11/2015 Assessment & Plan (10/04/2021 11:04 AM MUSEUM EXHIBIT DESIGNER): SBP uncontrolled. Resumed Triamterene 50mg BID previously will continue HCTZ 25mg Daily and Metoprolol will increase to 100mg BID for HTN and palpations. BMP stable. Assessment & Plan (09/02/2021 8:39 AM MUSEUM EXHIBIT DESIGNER): SBP uncontrolled. Resume Triamterene 50mg BID continue HCTZ 25mg Daily and Metoprolol 50mg BID. BMP in one week to ensue creatine is stable. Triamterene was stopped last fall in the setting and dehydration, diarrhea dn LUZ. Assessment & Plan (06/30/2021 4:54 PM MUSEUM EXHIBIT DESIGNER): Stable off HCTZ continue metoprolol 50mg BID. Would address UTI before resuming HCTZ. BP controlled in clinic, BP log and [employer] message in 1-2 weeks. Assessment & Plan [...] manifestations 06/04/2013 Coronary artery disease invo lving gambell coronary artery of gambell heart 11/04/2012 Urge incontinence 03/15/2011 Rectocele 03/15/2011 [...] colon biopsies done by Dr. Howard at [place] = no pathological diagnosis 11/04/2015 Duodenal aspirate [...] Medicine [address] [place] [id number] Jen Kam, THERAPY AIDE-POOLING OPERATOR 09/04/2024 Orders Only [facility] - Internal Medicine [address] [place] [address] Jen Kam, THERAPY AIDE-POOLING OPERATOR 06/11/2024 12:15 PM CDT Office Visit [facility] - Vascular Surgery [address] [place] [address], [place] [address] Yudith Rodriguez MD Bilateral carotid artery stenosis (Primary Dx) 06/11/2024 11:00 AM CDT - 06/11/2024 11:59 PM CDT Hospital Encounter [facility] [address] [place] [address] Yudith Rodriguez MD Discharge Disposition: Home or [...] VACCINE, ADULT 3 DOSE 07/14/2022,,01/12/2022 INFLUENZA A [id number] VACCINE 08/30/2009 INFLUENZA VACCINE 05/08/2011,08/01/2010,08/30/19 10 INFLUENZA [...] Recorded Patient Health Questionnaire-2 Score 0 12/05/2023 [facility] - Occupational [...] place to sleep or slept in a half-way (including now)? No 02/20/2023 Sex and Gender Information Value Date Recorded Sex Assigned at Female 10/22/2021 5:54 AM MUSEUM EXHIBIT DESIGNER Gender Identity Female 10/22/2021 5:54 AM MUSEUM EXHIBIT DESIGNER Sexual Orientation Not on file Last Filed Vital Signs Vital Sign Reading Time Taken Comments Blood Pressure 149/86 06/11/2024 12:39 PM CDT Pulse 96 06/11/2024 12:39 PM CDT Temperature 36.6 ??C (97.8 ??F) 06/11/2024 12:39 PM C DT Respiratory Rate 16 02/28/2024 9:48 AM CDT Oxygen Saturation 98% 02/28/2024 9:48 AM CDT Inhaled Oxygen Concentration 25% 08/21/2022 1 2:31 PM MUSEUM EXHIBIT DESIGNER Weight 74.4 kg (164 lb) 06/11/2024 12:39 PM CDT Height 170.2 cm (5' 7 ) 06/11/2024 12:39 PM CDT Body Mass Index 25.69 06/11/2024 12:39 PM CDT Plan of Treatment Upcoming Encounters Date Type Department Care Team (Late st Contact Info) Description 09/17/2024 3:00 PM MUSEUM EXHIBIT DESIGNER Office Visit [facility] - Neurology [address] [place] [address], [place] [phone] Connor Higgins MD [address] [place] [address] [place] [phone] Health Maintenance Due Date Last Done Comments [...] last dose Medical Devices Implanted Type Area Swatch Paster Device Identifier Shelf Expiration Date Model / Serial / Lot Cmpnt Fem Kn Rt 5 Crcte Rtn Legion Watt Implanted:Qty: 1 on 06/04/2017 by Taiwo Pérez MD at [facility] Right: Knee [employer] 04/29/2027 [id number] Nadir Basic Amrit Excludes Agc Kn Implanted:Qty: 1 on 06/04/2017 by Taiwo Pérez MD at [facility] [employer] BILL ONLY BASIC AMRIT EXCLUDES AGC KN SNOR / / Stem Tib 55mm 18mm Prfx Mtphsl Kn Implanted:Qty: 1 on 06/04/2017 by Taiwo Pérez MD at [facility] Right: Knee [employer] 04/13/2027 [id number] / / [id number] Ins Tib 3-4 9mm Kn Xlpe Dsh Legion Implanted:Qty: 1 on 06/04/2017 by Taiwo Pérez MD at [facility] Right: Knee [employer] 11/14/2026 [id number] / / [id number] Bsplt Tib Legion 3 Kn Rt Watt Por Implanted:Qty: 1 on 06/04/2017 by Taiwo Pérez MD at [facility] Right: Knee [employer] 11/05/2026 [id number] / / [id number] Screw Bsplt 15mm 6.5mm Gns2 Kn Tib Por Implanted:Qty: 1 on 06/04/2017 by Taiwo Pérez MD at [facility] Right: Knee [employer] 11/20/2026 [id number] / / [id number] Screw Bsplt 30mm 6.5mm Gns2 Kn Tib Por Implanted:Qty: 1 on 06/04/2017 by Taiwo Pérez MD at [facility] Right: Knee [employer] 09/25/2026 [id number] / / [id number] Screw Bsplt 20mm 6.5mm Gns2 Kn Tib Por Implanted:Qty: 1 on 06/04/2017 by Taiwo Pérez MD at [facility] Right: Knee [employer] 04/16/2027 [id number] / / [id number] Screw Bsplt 30mm 6.5mm Gns2 Kn Tib Por Implanted:Qty: 1 on 06/04/2017 by Taiwo Pérez MD at [facility] Right: Knee [employer] 04/16/2027 [id number] / / [id number] Gryphon Brds [place] W/Dynacord Implanted:Qty: 1 on 02/05/2019 by Bryn Rose MD at [facility] Right: Shoulder 05/12/2021 [id number] / / [id number] Description:ab G[employer] [place]court W/Dynacord Implanted:Qty: 1 on 02/05/2019 by Bryn Rose MD at [facility] Right: Shoulder 10/10/2021 [id number] / / [id number] Description:ab [place] 5.5 Healix Adv Knt Br Implanted:Qty: 1 on 02/05/2019 by Bryn Rose MD at [facility] Right: Shoulder 01/10/2021 [id number] / / [id number] Description:ab HEALIX ADVANCE KNOTLESS BR ANCHOR [place] 5.5 Healix Adv Knt Br Implanted:Qty: 2 on 02/05/2019 by Bryn Rose MD at [facility] Right: Shoulder 03/12/2021 [id number] / / [id number] Description:ab HEALIX ADVANCE KNOTLESS BR ANCHOR Graft Tissue Allomend Aclr Drml Mtrx 8x4 Implanted:Qty: 1 on 02/05/2019 by Bryn Rose MD at [facility] Right: Shoulder [employer] 09/21/2020 [id number] / / [id number] Description:ab [place] 6.5 Healix Adv Knt Br Implanted:Qty: 2 on 02/05/2019 by Bryn Rose MD at [facility] Right: Shoulder 10/10/2021 [id number] / / [id number] Description:HEALIX ADVANCE K NOTLESS BR ANCHOR [employer] Hydrophobic Acrylic Intraocular Lens Implanted:Qty: 1 on 06/07/2022 by Mery Patel MD at [facility] Left: Eye [employer] 01/10/2025 [id number] 20.0 / [id number] / [id number] [employer] Implanted:Qty: 1 on 06/21/2022 by Mery Patel MD at [facility] Right: Eye 09/12/2024 MX60E 20.00 / [id number] / [id number] Patch Cv 6x1cm Vsgrd Bvn Pricrd Strl Implanted:Qty: 1 on 08/18/2022 by Yudith Rodriguez MD at [facility] Right: Carotid [employer] 09/01/2026 [id number] / / [id number] Explanted Type Area Swatch Paster Device Identifier Shelf Expiration Date Model / Serial / Lot Screw Bsplt 25mm 6.5mm Gns2 Kn Tib Por Explanted:Qty: 1 on 06/04/2017 by Taiwo Pérez MD at [facility] Right: Knee [employer] 04/16/2027 [id number] / / [id number] Procedures Procedure Name Priority Date/Time Associated Diagnosis [...] COLON, SCREENING Routine 12/14/2020 9:12 AM CDT [place] 3 COMP FOOT EXAM COMPLETED Routine 03/07/2018 Breast cancer screening EYE EXAM 12/18/2017 8:38 AM CDT HEPATITIS C ANTIBODY Routine 09/24/2013 1:23 PM MUSEUM EXHIBIT DESIGNER from Last 3 Months or Most Recently [...] 7 - 26 mg/dL 02/13/2024 12:47 PM [facility] Creatinine 0.74 0.56 - 0.96 mg/dL 02/13/2024 12:47 PM [facility] Sodium 146(H) 136 - 145 mmol/L 02/13/2024 12:47 PM [facility] Potassium 3.0(L) 3.5 - 4.5 mmol/L 02/13/2024 12:47 PM [facility] Chloride 107 98 - 107 mmol/L 02/13/2024 12:47 PM [facility] CO2 28 22 - 29 mmol/L 02/13/2024 12:47 PM [facility] Glucose 126(H) 70 - 115 mg/dL 02/13/2024 12:47 PM [facility] Calcium 9.5 8.4 - 10.2 mg/dL 02/13/2024 12:47 PM T [facility] Anion Gap 11 6 - 16 02/13/2024 12:47 PM T [facility] BUN/Creatinine Ratio 16 7 - 23 02/13/2024 12:47 PM T [facility] Osmolality Calculated 303(H) 275 - 295 mOsm/kg 02/13/2024 12:47 PM T [facility] eGFR by CKD-EPI 89(L) >=90 mL/min/1.7 3 m2 02/13/2024 12:47 PM T [facility] Blood BLOOD SPECIMEN / Unknown Lab Venipuncture / Unknown 02/13/2024 11:02 AM CDT 02/13/2024 12:20 PM CDT Silviano York III, MD LAB - CHEMISTRY O RDERABLES [facility] [address] [place] [phone], [facility] [phone] * (ABNORMAL) HEMOGLOBIN A1C (12/28/2023 1:51 AM CDT) Hemoglobin A1c 7.0(H) <5.7 % 12/28/2023 3:11 AM CDT [facility] Estimated Average Glucose 154 mg/dL 12/28/2023 3:11 AM CDT [facility] Blood BLOOD SPECIMEN / Unknown Lab Venipuncture / Unknown 12/28/2023 1:51 AM CDT 12/28/2023 2:58 AM CDT [facility] - 12/28/2023 3:11 AM CDT HbA1c [...] Standardization Program (NGSP) certified method. Lisa Matthews THERAPY AIDE-POOLING OPERATOR LAB - CH EMISTRY ORDERABLES [facility] [address] [id number] * MICROALB/CREAT RATIO URINE RANDOM PANEL (04/12/2023 [...] Resulting Agency Comment Lab Testing performed at: [facility] [address] ??[facility] [phone] Jen Kam THERAPY AIDE-POOLING OPERATOR LAB - URINE CH EMISTRY ORDERABLES [facility] INSURANCE BILL [address] [place] [address] * BONE DENSITY AXIAL SKELETON(1OR MORE SITES)[id number] (02/09/2022 8:20 AM CDT) Anatomical Region Laterality Modality Other 02/09/2022 4:19 PM CDT Narrative 02/09/2022 4:48 PM CDT Examination: Dual energy x-ray absorptiometry of the left hip. Clinical Indication: E28.39: Ovarian failure Technique: Detailed data from the exam is sent separately to the ordering physician and is also available on Digital Theatre, the Radiology Department's computerized picture archive system. [...] theordering physician and is also available on Digital [employer], the Radiology Department's computerized picture archive system. [...] Peralta on 02/09/2022 4:[address] EORN Stevenson D.O. have personally reviewed and interpreted this examination/study. This report was electronically signed by ERON HOYOS D.O. on02/09/2022 4:48 PM . Jen Kam THERAPY AIDE-POOLING OPERATOR DEXA ORDERABLE S * MAMMO BILAT SCREENING [...] BENIGN. Report dictated by Ronny Braxton MD (educational institution president) Zeferino Molina MD (resident) assisted in the [...] most recent dated 09/15/2020 and 07/30/2019 from [facility]. TECHNIQUE: ??Tomosynthesis (3-D) and reconstructed [...] change from the prior. Jen Cesar Eddy THERAPY AIDE-POOLING OPERATOR MAMMO ORDERABL ES * ENDOSCOPY, COLON, SCREENING [...] and ?oxygen saturations were monitored continuously. The ?[id number] was introduced through the anus and ?advanced [...] Procedure Code(s): ? --- Professional --- ? 58241, 52, Colonoscopy, flexible; with biopsy, single or multiple Diagnosis Code(s): ?--- Professional --- ?Z86.010, Personal history of colonic polyps CPT copyright 2019 [employer]. All rights reserved. The codes documented in this report are preliminary and upon oil and gas lease pumper review may be revised to meet current compliance requirements. Terrell Quijano MD 12/14/2020 10:40:50 AM This report has been signed electronically. Note Initiated On: 12/14/2020 9:12 AM Number of Addenda: 0 ? [facility] ? [address] PROVATION 12/14/2020 9:12 AM CDT Terrell MARTEU RE ORDERABLES Performing Organization Address [facility] Co de Phone Number [facility] [employer] * [place] 3 COMP FOOT EXAM COMPLETED (Automatically Completed) (03/07/2018) Narrative Erica Reno, THERAPY AIDE-POOLING OPERATOR - 03/07/2018 left and right foot/feet examined with shoes and socks removed. Visual inspection was normal. Sensory exam with monofilament was ??normal. Dorsal pedal and posterior tibial pulses were normal. Erica Reno THERAPY AIDE-POOLING OPERATOR [place] - PROFES SIONAL SERVICES * EYE EXAM (12/18/2017 8:38 AM CDT) Anatomical Region Laterality Modality Other Narrative 12/18/2017 8:38 AM CDT Ordered by an unspecified provider. Scanned Document SCANNING ONLY * HEPATITIS C ANTIBODY (09/24/2013 1:23 PM MUSEUM EXHIBIT DESIGNER) Hepatitis C Antibody NONREACTIVE NONREACTIVE [facility] Comment: Anti-HCV screen indicates no serologic evidence of past or current infection with Hepatitis C Virus. Patients with unexplained liver disease who are immunocompromised or suspected of having acute Hepatitis C infection may benefit from Nucleic Acid Test (CHASE) for Hepatitis C Viral RNA to confirm Hepatitis C status. 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 Fisheries Specialist Expl anation Adv Directive/Living Will/POA 02/23/2023 10:16 [...] 10:20 AM 04/12/2022 3:52 PM Care Teams Dater Assembler Relationship Specialty Start Date End Date Jen Kam, THERAPY AIDE-POOLING OPERATOR [address] [place] [phone] PCP - General Nurse Practitioner 11/09/21 Jose Elias Samaniego, RN 06/04/17 Pedro Cordero MD [address] [facility] [address] [place] [address] Cardiology 01/14/22 Abigail Thibodeaux MD [address] [place] [address] Psychiatry 01/14/22 Alen Cox MD [address] [facility] [address], [facility] [place] [address] Urology 01/14/22 Mindy Salgado, PAHodaC [address] [facility] [address] [place] [phone] Physician Qa Consultant Gastroenterology 01/14/22 Connor Higgins MD [address] [facility] [address] [place] [phone] Neurology 01/14/22
--- OUTSIDE RECORDS SUMMARY | 2024-09-04 19:09 | XMS_ITS | Referral Summary ---
Author Organization [facility] Address [address] [place] [address] Care Team Providers Care Partition Setter Name Role Phone Jose Elias Samaniego RN Unavailable Unavailab Jen Toro GRAIN ORIGINATION SPECIALIST-CASHIER CREDIT Primary Care Provider Pedro Cordero MD Unavailable [phone] Abigail Thibodeaux MD Unavailable Alen Cox MD Unavailable Mindy Salgado PA-C Unavailable Connor Higgins MD Unavailable Source Comments [facility],non-owned Affiliates and Associated Physician Practices is amultiple site organization consisting of ambulatory clinics and hospital sitesin [place], [place], [place] and [place]. This disclosure is being madepursuant to the Care Everywhere program and may not contain all information available regarding this patient. Last updated 18.[facility] Encounters Date Type Department Care Team Description 09/04/2024 Orders Only [facility] - Internal Medicine [address], [address] [place] [id number] Jen Kam, GRAIN ORIGINATION SPECIALIST-CASHIER CREDIT 09/04/2024 Orders Only [facility] [address], [address] [place] [address] Eddy Jen D, GRAIN ORIGINATION SPECIALIST-CASHIER CREDIT 06/11/2024 Travel 06/11/2024 12:15 PM CDT Office Visit [facility] - Vascular Surgery [address] [facility], [place] [address] Yudith Rodriguez MD Bilateral carotid artery stenosis (Primary Dx) 06/11/2024 11:00 AM CDT - 06/11/2024 11:59 PM CDT Hospital Encounter [facility] [address] [place] [address] Yudith Rodriguez MD Discharge Disposition: Home or [...] failure,Paroxysmal atrial fibrillation (HCC),Coronary artery disease involving [place] coronary artery of [place]ock heart, unspecified whether angina present,TIA (transient ischemic [...] g 1 4 Active saline nasal spray ([place]; Baby Spurger) 0.65 % nasal spray [place] 1 (one) spray into each nostril every [...] omplicated Urinary Tract Infection,verified with patient and bar tender that pt can take [facility]ime, [facility] observation Take 1 (one) tablet by mouth 2 times daily for 5 days Reasons: Complicated Urinary Tract Infection, verified with patient and bar tender that pt can take cefpodoxime, [facility] observation 20 tablet [...] 4 09/04/19 Discontinu ed(List Clean-Up) nystatin (Mycostatin) 492995 UNIT/ML suspension 4 09/04/19 Discontinu ed(List Clean-Up) [...] bronchit is type 11/24/2022 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 Does endorse palpitations with activity, HR in the 70s, will increase BB to 100mg BID. Assessment & Plan (09/02/2021 8:42 AM INSTRUCTIONAL DESIGN SPECIALIST): Eliquis and BB. Does endorse palpitations with increase SPB. HR in the 50-60s will not further increase BB at this time. Assessment & Plan (06/30/2021 4:55 PM INSTRUCTIONAL DESIGN SPECIALIST): Eliquis and BB. Denies reoccurrence. Urinary tract [...] 10/09/2018 Assessment & Plan (06/30/2021 4:56 PM INSTRUCTIONAL DESIGN SPECIALIST): I have reached out to ID for [...] 01/11/2015 Assessment & Plan (10/04/2021 11:04 AM INSTRUCTIONAL DESIGN SPECIALIST): SBP uncontrolled. Resumed Triamterene 50mg BID previously will continue HCTZ 25mg Daily and Metoprolol will increase to 100mg BID for HTN and palpations. BMP stable. Assessment & Plan (09/02/2021 8:39 AM INSTRUCTIONAL DESIGN SPECIALIST): SBP uncontrolled. Resume Triamterene 50mg BID continue HCTZ 25mg Daily and Metoprolol 50mg BID. BMP in one week to ensue creatine is stable. Triamterene was stopped last fall in the setting and dehydration, diarrhea dn LUZ. Assessment & Plan (06/30/2021 4:54 PM INSTRUCTIONAL DESIGN SPECIALIST): Stable off HCTZ continue metoprolol 50mg BID. Would address UTI before resuming HCTZ. BP controlled in clinic, BP log and Hmall.ma message in 1-2 weeks. Assessment & Plan [...] manifestations 06/04/2013 Coronary artery disease invo lving rapp[place]ock coronary artery of [place]ock heart 11/04/2012 Urge incontinence 03/15/2011 Rectocele 03/15/2011 [...] colon biopsies done by Dr. Howard at [place] = no pathological diagnosis 11/04/2015 Duodenal aspirate [...] VACCINE, ADULT 3 DOSE 07/14/2022,,01/12/2022 INFLUENZA A [id number] VACCINE 08/30/2009 INFLUENZA VACCINE 05/08/2011,08/01/2010,08/30/19 10 INFLUENZA [...] Recorded Patient Health Questionnaire-2 Score 0 12/05/2023 [facility] - Occupational Stress Questionnaire Answer Date Recorded [...] place to sleep or slept in a penitentiary (including now)? No 02/20/2023 Sex and Gender Information Value Date Recorded Sex Assigned at Female 10/22/2021 5:54 AM INSTRUCTIONAL DESIGN SPECIALIST Gender Identity Female 10/22/2021 5:54 AM INSTRUCTIONAL DESIGN SPECIALIST Sexual Orientation Not on file Last Filed Vital Signs Vital Sign Reading Time Taken Comments Blood Pressure 149/86 06/11/2024 12:39 PM CDT Pulse 96 06/11/2024 12:39 PM CDT Temperature 36.6 ??C (97.8 ??F) 06/11/2024 12:39 PM C DT Respiratory Rate 16 02/28/2024 9:48 AM CDT Oxygen Saturation 98% 02/28/2024 9:48 AM CDT Inhaled Oxygen Concentration 25% 08/21/2022 1 2:31 PM INSTRUCTIONAL DESIGN SPECIALIST Weight 74.4 kg (164 lb) 06/11/2024 12:39 [...] st Contact Info) Description 09/17/2024 3:00 PM INSTRUCTIONAL DESIGN SPECIALIST Office Visit [facility] - Neurology [address] [place] [address], [facility] [place] [address] Connor Higgins MD [address] [place] [address] [place] [address] Goals Goal Patient Goal Type [...] last dose Medical Devices Implanted Type Area Lead Level Designer Device Identifier Shelf Expiration Date Model / Serial / Lot Cmpnt Fem Kn Rt 5 Crcte Rtn Legion Watt Implanted:Qty: 1 on 06/04/2017 by Taiwo Pérez MD at [facility] Right: Knee [employer] 04/29/2027 [id number] / / [id number] Nadir Basic Amrit Excludes Agc Kn Implanted:Qty: 1 on 06/04/2017 by Taiwo Pérez MD at [facility] [employer] BILL ONLY BASIC AMRIT EXCLUDES AGC KN SNOR / / Stem Tib 55mm 18mm Prfx Mtphsl Kn Implanted:Qty: 1 on 06/04/2017 by Taiwo Péerz MD at [facility] [place] Right: Knee [employer] 04/13/2027 [id number] / / [id number] Ins Tib 3-4 9mm Kn Xlpe Dsh Legion Implanted:Qty: 1 on 06/04/2017 by Taiwo Pérez MD at [facility] [place] Right: Knee [employer] 11/14/2026 [id number] / / [id number] Bsplt Tib Legion 3 Kn Rt Watt Por Implanted:Qty: 1 on 06/04/2017 by Taiwo Pérez MD at [facility] Right: Knee [employer] 11/05/2026 [id number] / / [id number] Screw Bsplt 15mm 6.5mm Gns2 Kn Tib Por Implanted:Qty: 1 on 06/04/2017 by Taiwo Pérez MD at [facility] Right: Knee [employer] 11/20/2026 [id number] / / [id number] Screw Bsplt 30mm 6.5mm Gns2 Kn Tib Por Implanted:Qty: 1 on 06/04/2017 by Taiwo Pérez MD at [facility] Right: Knee [employer] 09/25/2026 [id number] / / [id number] Screw Bsplt 20mm 6.5mm Gns2 Kn Tib Por Implanted:Qty: 1 on 06/04/2017 by Taiwo Pérez MD at [facility] [place] Right: Knee [employer] 04/16/2027 [id number] / / [id number] Screw Bsplt 30mm 6.5mm Gns2 Kn Tib Por Implanted:Qty: 1 on 06/04/2017 by Taiwo Pérez MD at [facility] [place] Right: Knee [employer] 04/16/2027 [id number] / / [id number] Gryphon Brds [place] W/Dynacord Implanted:Qty: 1 on 02/05/2019 by Bryn Rose MD at [facility] [place] Right: Shoulder 05/12/2021 [id number] / / [id number] Description:ab Gryphon [employer]ds [place] W/Dynacord Implanted:Qty: 1 on 02/05/2019 by Bryn Rose MD at [facility] [place] Right: Shoulder 10/10/2021 [id number] / / [id number] Description:ab [place] 5.5 Healix Adv Knt Br Implanted:Qty: 1 on 02/05/2019 by Bryn Rose MD at [facility] Right: Shoulder 01/10/2021 [id number] / / [id number] Description:ab HEALIX ADVANCE KNOTLESS BR ANCHOR [place] 5.5 Healix Adv Knt Br Implanted:Qty: 2 on 02/05/2019 by Bryn Rose MD at [facility] [place] Right: Shoulder 03/12/2021 [id number] / / [id number] Description:ab HEALIX ADVANCE KNOTLESS BR ANCHOR Graft Tissue Allomend Aclr Drml Mtrx 8x4 Implanted:Qty: 1 on 02/05/2019 by Bryn Rose MD at [facility] [place] Right: Shoulder [employer] 09/21/2020 [id number] / / [id number] Description:ab [place] 6.5 Healix Adv Knt Br Implanted:Qty: 2 on 02/05/2019 by Bryn Rose MD at [facility] Right: Shoulder 10/10/2021 [id number] / / [id number] Description:HEALIX ADVANCE K NOTLESS BR ANCHOR Envista Hydrophobic Acrylic Intraocular Lens Implanted:Qty: 1 on 06/07/2022 by Mery Patel MD at [facility] Left: Eye [employer] 01/10/2025 [id number] 20.0 / [id number] / [id number] [employer]ch [employer] Implanted:Qty: 1 on 06/21/2022 by Mery Patel MD at [facility] Right: Eye 09/12/2024 MX60E 20.00 / [id number] / [id number] Patch Cv 6x1cm Vsgrd Bvn Pricrd Strl Implanted:Qty: 1 on 08/18/2022 by Yudith Rodriguez MD at [facility] Right: Carotid [employer] 09/01/2026 [id number] / / [id number] Explanted Type Area Lead Level Designer Device Identifier Shelf Expiration Date Model / Serial / Lot Screw Bsplt 25mm 6.5mm Gns2 Kn Tib Por Explanted:Qty: 1 on 06/04/2017 by Taiwo Pérez MD at [facility] [place] Right: Knee [employer] 04/16/2027 [id number] / / [id number] Procedures Procedure Name Priority Date/Time Associated Diagnosis [...] COLON, SCREENING Routine 12/14/2020 9:12 AM CDT GA 3 COMP FOOT EXAM COMPLETED Routine 03/07/2018 Breast cancer screening EYE EXAM 12/18/2017 8:38 AM CDT HEPATITIS C ANTIBODY Routine 09/24/2013 1:23 PM INSTRUCTIONAL DESIGN SPECIALIST from Last 3 Months or Most Recently [...] - 26 mg/dL 02/13/2024 12:47 PM CDT [facility] Creatinine 0.74 0.56 - 0.96 mg/dL 02/13/2024 12:47 PM [facility] Sodium 146(H) 136 - 145 mmol/L 02/13/2024 12:47 PM [facility] Potassium 3.0(L) 3.5 - 4.5 mmol/L 02/13/2024 12:47 PM [facility] Chloride 107 98 - 107 mmol/L 02/13/2024 12:47 PM [facility] CO2 28 22 - 29 mmol/L 02/13/2024 12:47 PM [facility] Glucose 126(H) 70 - 115 mg/dL 02/13/2024 12:47 PM [facility] Calcium 9.5 8.4 - 10.2 mg/dL 02/13/2024 12:47 PM [facility] Anion Gap 11 6 - 16 02/13/2024 12:47 PM [facility] BUN/Creatinine Ratio 16 7 - 23 02/13/2024 12:47 PM [facility] Osmolality Calculated 303(H) 275 - 295 mOsm/kg 02/13/2024 12:47 PM [facility] eGFR by CKD-EPI 89(L) >=90 mL/min/1.7 3 m2 02/13/2024 12:47 PM [facility] Blood BLOOD SPECIMEN / Unknown Lab Venipuncture / Unknown 02/13/2024 11:02 AM CDT 02/13/2024 12:20 PM CDT Silviano York III, MD LAB - CHEMISTRY O RDERABLES Performing Organization Address City/State/[facility] Co de Phone Number [facility] [address] [place] [address], [facility] [phone] * (ABNORMAL) HEMOGLOBIN A1C (12/28/2023 1:51 AM CDT) Hemoglobin A1c 7.0(H) <5.7 % 12/28/2023 3:11 AM T [facility] Estimated Average Glucose 154 mg/dL 12/28/2023 3:11 AM T [facility] Blood BLOOD SPECIMEN / Unknown Lab Venipuncture / Unknown 12/28/2023 1:51 AM CDT 12/28/2023 2:58 AM CDT Narrative [facility] - 12/28/2023 3:11 AM CDT [...] Standardization Program (NGSP) certified method. Lisa Matthews GRAIN ORIGINATION SPECIALIST-CASHIER CREDIT LAB - EMISTRY ORDERABLES [facility] [address] [place], [place] [id number] * MICROALB/CREAT RATIO URINE RANDOM PANEL (04/12/2023 [...] Resulting Agency Comment Lab Testing performed at: [facility] [address] [facility] ??[facility] [phone] Jen Kam APRN-CASHIER CREDIT LAB - URINE CH EMISTRY ORDERABLES [facility] INSURANCE BILL [address] [place] [address] * BONE DENSITY AXIAL SKELETON(1OR MORE SITES)[id number] (02/09/2022 8:20 AM CDT) Anatomical Region Laterality Modality Other 02/09/2022 4:19 PM CDT Narrative 02/09/2022 4:48 PM CDT Examination: Dual energy x-ray absorptiometry of the left hip. Clinical Indication: E28.39: Ovarian failure Technique: Detailed data from the exam is sent separately to the ordering physician and is also available on CoverMe, the Radiology Department's computerized picture archive system. [...] 02/09/2022 4:23 PM . I, Dr. ERON HOOYS D.O. have personally reviewed and interpreted this examination/study. This report was electronically signed by ERON HOYOS D.O. ??on 02/09/2022 4:48 PM . Procedure Note Eron Hoyos, DO - 02/09/2022 Examination: Dual energy x-ray absorptiometry of the left hip. Clinical Indication: E28.39: Ovarian failure Technique: Detailed data from the exam is sent separately to theordering physician and is also available on CoverMe, the Radiology Department's computerized picture archive system. [...] D.O. on02/09/2022 4:48 PM . Jen Kam GRAIN ORIGINATION SPECIALIST-CASHIER CREDIT DEXA ORDERABLE S * MAMMO BILAT SCREENING [...] BENIGN. Report dictated by Ronny Braxton MD (residential plumber) Zeferino Molina MD (resident) assisted in the [...] most recent dated 09/15/2020 and 07/30/2019 from [facility]. TECHNIQUE: ??Tomosynthesis (3-D) and reconstructed synthetic [...] significant change from the prior. Jen Kam GRAIN ORIGINATION SPECIALIST-CASHIER CREDIT MAMMO ORDERABL ES * ENDOSCOPY, COLON, SCREENING [...] and ?oxygen saturations were monitored continuously. The ?[id number] was introduced through the anus and ?advanced [...] sessile. The polyp was removed with a CartRescuermbo cold forceps. An adjacent ? hyperplastic appearing [...] Procedure Code(s): ? --- Professional --- ? 58447, 52, Colonoscopy, flexible; with biopsy, single or multiple Diagnosis Code(s): ?--- Professional --- ?Z86.010, Personal history of colonic polyps CPT copyright 2019 [employer]. All rights reserved. The codes documented in this report are preliminary and upon welfare manager review may be revised to meet current compliance requirements. Terrell Quijano MD 12/14/2020 10:40:50 AM This report has been signed electronically. Note Initiated On: 12/14/2020 9:12 AM Number of Addenda: 0 ? [facility] ? [address] [place] [address] [facility] 12/14/2020 9:12 AM CDT Terrell Acevedo MD GI PROCEDU RE ORDERABLES [facility] * GA 3 COMP FOOT EXAM COMPLETED (Automatically Completed) (03/07/2018) Narrative Erica Reno, GRAIN ORIGINATION SPECIALIST-CASHIER CREDIT - 03/07/2018 left and right foot/feet examined with shoes and socks removed. Visual inspection was normal. Sensory exam with monofilament was ??normal. Dorsal pedal and posterior tibial pulses were normal. Erica Reno GRAIN ORIGINATION SPECIALIST-CASHIER CREDIT GA - PROFES SIONAL SERVICES * EYE EXAM (12/18/2017 8:38 AM CDT) Anatomical Region Laterality Modality Other Narrative 12/18/2017 8:38 AM CDT Ordered by an unspecified provider. Scanned Document SCANNING ONLY * HEPATITIS C ANTIBODY (09/24/2013 1:23 PM INSTRUCTIONAL DESIGN SPECIALIST) Hepatitis C Antibody NONREACTIVE NONREACTIVE [facility] Comment: Anti-HCV screen indicates no serologic evidence of past or current infection with Hepatitis C Virus. Patients with unexplained liver disease who are immunocompromised or suspected of having acute Hepatitis C infection may benefit from Nucleic Acid Test (CHASE) for Hepatitis C Viral RNA to confirm Hepatitis C status. 09/24/2013 1:23 PM INSTRUCTIONAL DESIGN SPECIALIST 09/24/2013 1:40 PM INSTRUCTIONAL DESIGN SPECIALIST Víctor Lacey MD LAB - CHEMISTRY O RDERABLES [address] [phone] from Last 3 Months or Most Recently Relevant to Health Maintenance Advance Directives Documents on File Type Date Recorded Patient Bulb Grower Expl anation Adv Directive/Living Will/POA 02/23/2023 10:16 [...] 10:20 AM 04/12/2022 3:52 PM Care Teams Partition Setter Relationship Specialty Start Date End Date Jen Kam, GRAIN ORIGINATION SPECIALIST-CASHIER CREDIT [address] [facility] [address] [place] [address] PCP - General Nurse Practitioner 11/09/21 Jose Elias Samaniego, RN 06/04/17 Pedro Cordero MD [address] [facility] [address] [place] [address] Cardiology 01/14/22 Abigail Thibodeaux MD [address] [place] [address] Psychiatry 01/14/22 Alen Cox MD [address] [facility] [address] [place], [facility] [place] [address] Urology 01/14/22 Mindy Salgado, PA-C [address] DIV OF [place]STR[place] [address] Physician Wire Taper Gastroenterology 01/14/22 Connor Higgins MD [address] [place] [id number] Neurology 01/14/22
--- OUTSIDE RECORDS SUMMARY | 2024-09-04 19:10 | XMS_ITS | Referral Summary ---
Author Organization [facility] Address [address] [place] [address] Care Team Providers Care Clutch Inspector Name Role Phone Erica Reno NP Primary [...] N/V. Assessment & Plan (09/01/2021 11:19 AM MANUFACTURING MILLWRIGHT): -Hx of stones in the past. Reports she had 3-4 stones removed with [facility] urology but 2mm stone remained. -Patient is very interested in having stone removed to see if this will help with reduction of infections. PLAN: -Will discuss with urologist; however, given length of UTI's occurring since she was a child, unsure if this would help to reduce. Atrial flutter ([facility]) 06/30/2021 Overview (09/01/2021): Last Assessment [...] medication. Assessment & Plan (09/01/2021 11:20 AM MANUFACTURING MILLWRIGHT): -Has had cysto 03/2021 and CTU 04/2021. [...] 07/11/2016 Female hypogonadism 06/24/2016 Bipolar 2 disorder ([facility]) 01/15/2016 Glaucoma of both eyes 10/15/2015 Type 2 diabetes mellitus with hyperglycemia ([facility] /[facility]) 07/15/2015 Essential hypertension 01/11/2015 Overview (09/01/2021): Last Assessment & Plan: Stable off HCTZ continue metoprolol 50mg BID. Would address UTI before resuming HCTZ. BP controlled in clinic, BP log and [employer] message in 1-2 weeks. 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 T12 compression fracture 09/09/2013 Parkinson's disease 06/04/2013 Coronary artery disease invo lving minto coronary artery of minto heart 11/04/2012 Cystocele 03/15/2011 Rectocele 03/15/2011 Urge incontinence 03/15/2011 Assessment & Plan (09/01/2021 10:54 AM MANUFACTURING MILLWRIGHT): -Previously on myrbetriq but stopped due to [...] on file Legal Sex Female 2:03 AM MANUFACTURING MILLWRIGHT Gender Identity Female 09/01/2021 10:01 AM MANUFACTURING MILLWRIGHT Sexual Orientation Not on file Last Filed [...] on file Medical Devices Implanted Type Area Elevator Tender Device Identifier Shelf Expiration Date Model / Serial / Lot Total Joint Other - see comments Right: Knee Neck Fusion Other - see comments Neck Explanted Type Area Elevator Tender Device Identifier Shelf Expiration Date Model / Serial / Lot [employer] [id number] Universa 6fr 24cm Radiopaque Graduate Firm Monofilament Tether - [id number] Implanted:Qty: 1 on 11/16/2021 by Alen Cox MD at [facility] Explanted:Qty: 1 on 11/17/2021 Left: Ureter [email or web address] 07/05/2024 [id number] / / [id number] Procedures Procedure Name Priority Date/Time Associated Diagnosis [...] was last reviewed 2021. Testing performed by: [facility], [address] [place] [address]., [id number] Blood 02/15/2022 10:0 8 AM CDT 02/15/2022 10:27 AM CDT us Alen Cox MD LAB BLOOD ORDERABLES Final Resul t Performing Organization Address City/[facility] Co de Phone Number [place] [id number] [facility] [place] [address] * (ABNORMAL) Hemoglobin A1c (11/19/2021 [...] children were not included. ?? (Diabetes Care 31:4491-4861, 2007). ??The eAG is not equivalent to a fasting glucose. Blood 11/19/2021 4:26 AM CDT 11/19/2021 4:51 AM CDT us Hawa Garcia DO LAB BLOOD ORDERABLES Final Re sult [facility] [address] [facility] [place] [address] * Screening Mammogram W Varun (05/31/2016 9:20 AM CDT) Anatomical Region Laterality Modality Breast N/A Mammography 05/31/2016 9:20 AM CDT Narrative 06/01/2016 1:07 PM CDT ERICH MCCOY M.D. FINAL REPORT ACC# ??Date Time ??Exam [id number] May 31, 2016 09:20:00 [facility] [id number] Bilateral screen w varun ?? Technologist(s): Corina Kim; ; EXAMINATION: ??Mammogram Technique: Bilateral Full-Field Digital Screening Mammogram and Digital Breast Tomosynthesis were performed. ??Views obtained: ??bilateral craniocaudal and bilateral mediolateral oblique. ??Computer Aided Detection of the 2D images was performed with [employer].3 version 9.3. Mammogram Findings: The present examination has been compared to prior imaging studies performed at [facility] on 03/25/2015 and 02/16/2012, and at [facility] [place] [address] on 01/26/2014. There are scattered areas of fibroglandular density. There is no suspicious abnormality in either breast. IMPRESSION: ??Annual screening mammography is recommended. OVERALL FINAL ASSESSMENT: BI-RADS CATEGORY 1: ??Negative. Requested By: Dictated By: ?? ERICH MCCOY M.D. ??on Jun 01 2016 ??1:07P This document has been electronically signed by: ERICH MCCOY M.D. on Jun 01 2016 ??1:07P [id number] Procedure Note Provider, MD [place] - 12/20/2016 ERICH MCCOY M.D. FINAL REPORT ACC# Date Time Exam [id number] May 31, 2016 09:20:00 [facility] [id number] Bilateral screen w varun Technologist(s): Corina Kim; ; EXAMINATION: Mammogram Technique: Bilateral Full-Field Digital Screening Mammogram and Digital Breast Tomosynthesis were performed. Views obtained: bilateral craniocaudaland bilateral mediolateral oblique. Computer Aided Detection of the 2Dimages was performed with [employer].3 version 9.3. Mammogram Findings: The present examination has been compared to prior imaging studies performed at [facility] on 03/25/2015 and 02/16/2012, and at [facility] [place] [address] on 01/26/2014. There are scattered areas of fibroglandular density. There is no suspicious abnormality in either breast. IMPRESSION: Annual screening mammography is recommended. OVERALL FINAL ASSESSMENT: BI-RADS CATEGORY 1: Negative. Requested By: Dictated By: ERICH MCCOY M.D. on Jun 01 2016 1:07P This document has been electronically signed by: ERICH MCCOY M.D. on Jun 01 2016 1:07P [id number] us Historical Provider MD BEATTY MAMMO PROCEDURES Jacqueline l Result from Last 3 Months or Most Recently Relevant to Health Maintenance Insurance MEDICARE [facility] Address: [address] [address] [place] [address] IDPA IDPA Care Teams Clutch Inspector Relationship Specialty Start Date End Date Erica Reno NP [address] [facility] [address] [place] [address] PCP - General Nurse Practitioner 07/04/21
--- OUTSIDE RECORDS SUMMARY | 2024-09-04 19:10 | XMS_ITS | Encounter Summary ---
Author Organization [facility] Address [address] [facility] [place] [address] Care Team Providers Care Icer Hand Name Role Phone Jose Elias Samaniego RN Unavailable Unavailab Erica Tiwari DIGITAL LEARNING PLATFORMS MANAGER-[facility] Primary Care Provi leonard Yamileth Franks DIGITAL LEARNING PLATFORMS MANAGER-[facility] Primary Care Provider [phone] Jen Kam DIGITAL LEARNING PLATFORMS MANAGER-[facility] Primary Care Provider Pedro Cordero MD Unavailable [phone] Abigail Thibodeaux MD Unavailable Dutch (Cc)Mindy Unavailable Unavailable Alen Cox MD Unavailable Mindy Salgado PA-C Unavailable Connor Higgins MD Unavailable Encounter Details Date Type Department Care Team (Late st Contact Info) Description 10/22/2018 Telephone [facility] [address] [place] [address] Katalina Moreno MD [address] [facility] [place] [address] Social History Tobacco Use Types Packs/Day Years Used Date Smoking Tobacco: Former Cigarettes 1 30 0 1975 - 2005 Smokeless Tobacco: Former Comments:quit 7 years ago Alcohol Use Standard Drinks/Week Comments Yes 0 (1 standard drink = 0.6 oz pur e alcohol) occassional drinker Sex and Gender Information Value Date Recorded Sex Assigned at Female 10/22/2021 5:54 AM CONTRACT SHELTERED WORKSHOP SUPERVISOR Gender Identity Female 10/22/2021 5:54 AM CONTRACT SHELTERED WORKSHOP SUPERVISOR Sexual Orientation Not on file documented [...] Our practice will be moving to [facility], 2nd Floor [address] [place] [address] starting on October 14. Our phone number will remain the same. Please let us know if you have any questions. documented in this encounter Miscellaneous Notes * Telephone Encounter - Katalina Moreno MD - 10/29/2018 10:36 AM CDT Sent the following FlyClipt message to patient on 10/29/18: Aj Santos, [...] 11/05/18 Clinic time: 1 PM Clinic location: [facility], 2nd Floor [address] [place] [address] Your penicillin skin testing appointment takes about [...] the Allergy Immunology physician at [facility] which medication(s) you are taking. Medications for anxiety and depression may interfere with the skin test and may need to be hold for up to 14 days prior to your testing date. If you have any questions, concerns, or have not received the amoxicillin prescription, please don't hesitate to call or send us a message via Yummly. Sincerely, Dr. Paul Moreno Allergy and Immunology Fellow documented in this encounter Plan of Treatment Upcoming Encounters Date Type Department Care Team (Late st Contact Info) Description 09/17/2024 3:00 PM CONTRACT SHELTERED WORKSHOP SUPERVISOR Office Visit [facility] - Neurology [address] [facility] [place] [place] [address] Connor Higgins MD [address] [facility] 1L [place] [address] documented as of this encounter Visit Diagnoses Not on filedocumented in this encounter Care Teams Icer Hand Relationship Specialty Start Date End Date Erica Reno, DIGITAL LEARNING PLATFORMS MANAGER-AUTOCAD DESIGNER PCP - General 02/06/18 09/26/21 Yamileth Franks, DIGITAL LEARNING PLATFORMS MANAGER-AUTOCAD DESIGNER [address] [place] [address] PCP - General 09/27/21 11/08/21 Jen Kam, DIGITAL LEARNING PLATFORMS MANAGER-AUTOCAD DESIGNER [address] [facility] [address] [place] [address] PCP - General Nurse Practitioner 11/09/21 Jose Elias Samaniego, RN 06/04/17 Pedro Cordero MD [address] [facility] [address] [place] [address] Cardiology 01/14/22 Abigail Thibodeaux MD [address] [place] [address] Psychiatry 01/14/22 Dutch (Cc)Mindy Gastroenterology 01/14/22 01/14/22 Alen Cox MD [address] [facility], [place] [address] Urology 01/14/22 Mindy Salgado PA-C [address] [place] [address] Physician Delivery Analyst Gastroenterology 01/14/22 Connor Higgins MD [address] [place] [address] Neurology 01/14/22 documented as of this encounter
--- OUTSIDE RECORDS SUMMARY | 2024-09-04 19:10 | XMS_ITS | Encounter Summary ---
Author Organization [facility] Address [address] [facility] [place] [address] Care Team Providers Care Certified Meeting Professional Name Role Phone Jose Elias Samaniego RN Unavailable Unavailab Jen Toro NECK PINNER-COREMAKER EXPERIMENTAL Primary Care Provider Pedro Cordero MD Unavailable [phone] Abigail Thibodeaux MD Unavailable Alen Cox MD Unavailable Mindy Salgado PA-C Unavailable Connor Higgins MD Unavailable Reason for Visit * Reason Onset Date Comments MEDICATION REFILL 06/26/2023 Encounter Details Date Type Department Care Team (Late st Contact Info) Description 06/26/2023 Refill [facility] - Neurology [address] [place] [address], [facility] [place] [address] Connor Higgins MD [address] [place] [address] MEDICATION REFILL Social History Tobacco Use [...] Recorded Patient Health Questionnaire-2 Score 0 04/12/2023 [facility] of Occupat ional Health - Occupational Stress [...] Sex Assigned at Female 10/22/2021 5:54 AM PROCEDURE MANAGER Gender Identity Female 10/22/2021 5:54 AM PROCEDURE MANAGER Sexual Orientation Not on file documented as [...] Quantity dispensed: 30 tablets # refills: 0 EDURE MANAGER documented in this encounter Plan of Treatment Upcoming Encounters Date Type Department Care Team (Late st Contact Info) Description 09/17/2024 3:00 PM PROCEDURE MANAGER Office Visit [facility] Neurology [address] [place] [address], [place] [address] Connor Higgins MD [address] [place] [address] [place] [address] documented as of this encounter Goals Goal [...] on filedocumented in this encounter Care Teams Certified Meeting Professional Relationship Specialty Start Date End Date Jen Kam, NECK PINNER-COREMAKER EXPERIMENTAL [address] [place] [address] PCP - General Nurse Practitioner 11/09/21 Jose Elias Samaniego, RN 06/04/17 Pedro Cordero MD [address] [place] [address] Cardiology 01/14/22 Abigail Thibodeaux MD [address] [place] [address] Psychiatry 01/14/22 Alen Cox MD [address] [facility] [address] [place], [place] [address] Urology 01/14/22 Mindy Salgado, PA-C [address] [place] [address] Physician Sand Molder Gastroenterology 01/14/22 Connor Higgins MD [address] [place] [address] Neurology 01/14/22 documented as of this encounter
--- OUTSIDE RECORDS SUMMARY | 2024-09-04 19:10 | XMS_ITS | Encounter Summary ---
Author Organization [facility] Address [address] [facility] [place] [address] Care Team Providers Care Surgical Supplies Sterilizer Name Role Phone Jose Elias Samaniego RN Unavailable Unavailab Erica Tiwari BUYER GRAIN-ERP DEVELOPER Primary Care Provi leonard Yamileth Franks BUYER GRAIN-ERP DEVELOPER Primary Care Provider [phone] Jen Kam BUYER GRAIN-[facility] Primary Care Provider Pedro Cordero MD Unavailable [phone] Abigail Thibodeaux MD Unavailable Dutch (Cc)Mindy Unavailable Unavailable Alen Cox MD Unavailable Mindy Salgado PA-C Unavailable Connor Higgins MD Unavailable Reason for Visit * Reason Onset Date Comments MEDICATION REFILL 06/17/2019 Encounter Details Date Type Department Care Team (Late st Contact Info) Description 06/17/2019 Refill [facility] Internal Medicine [address] [place] [address] Erica Reno, BUYER GRAIN-ERP DEVELOPER [address] DIV OF GEN [place] [address] MEDICATION REFILL Social History Tobacco Use Types [...] Sex Assigned at Female 10/22/2021 5:54 AM HONING JOB SETTER Gender Identity Female 10/22/2021 5:54 AM HONING JOB SETTER Sexual Orientation Not on file documented as [...] st Contact Info) Description 09/17/2024 3:00 PM HONING JOB SETTER Office Visit [facility] - Neurology [address] [place] [address], [facility] [place] [address] Connor Higgins MD [address] [place] [address] [place] [address] documented as of this encounter Goals Goal [...] on filedocumented in this encounter Care Teams Surgical Supplies Sterilizer Relationship Specialty Start Date End Date Erica Reno, BUYER GRAIN-[facility] PCP - General 02/06/18 09/26/21 Yamileth Franks, BUYER GRAIN-[facility] [address] [place] [phone] PCP - General 09/27/21 11/08/21 Jen Kam, BUYER GRAIN-[facility] [address] [facility] [address] [place] [address] PCP - General Nurse Practitioner 11/09/21 Jose Elias Samaniego, RN 06/04/17 Pedro Cordero MD [address] [facility] [address] [place] [address] Cardiology 01/14/22 Abigail Thibodeaux MD [address] [place] [address] Psychiatry 01/14/22 Dutch (Cc)Mindy Gastroenterology 01/14/22 01/14/22 Alen Cox MD [address] [facility] [address], [facility] [place] [address] Urology 01/14/22 Mindy Salgado, PAHodaC [address] [facility] 3L DIV [place]STR[place] [address] Physician French Lecturer Gastroenterology 01/14/22 Connor Higgins MD [address] [facility] 1L [place] [address] Neurology 01/14/22 documented as of this encounter
--- OUTSIDE RECORDS SUMMARY | 2024-09-04 19:10 | XMS_ITS | Encounter Summary ---
Author Organization [facility] Address [address] [facility] [place] [address] Care Team Providers Care Barrel Lathe Operator Inside Name Role Phone Jose Elias Samaniego RN Unavailable Unavailab Jen Toro MULTICULTURAL MANAGER-CHARGING MACHINE OPERATOR Primary Care Provider Pedro Cordero MD Unavailable [phone] Abigail Thibodeaux MD Unavailable Alen Cox MD Unavailable Mindy Salgado PA-C Unavailable Connor Higgins MD Unavailable Reason for Visit * Reason Onset Date Comments Medication Issue 01/20/2022 Encounter Details Date Type Department Care Team (Late st Contact Info) Description 01/20/2022 Telephone [facility] [address] [place] [address] Jen Kam, MULTICULTURAL MANAGER-CHARGING MACHINE OPERATOR [address] [facility] 205 [place] [address] Medication Issue Social History Tobacco [...] Sex Assigned at Female 10/22/2021 5:54 AM SENIOR BUSINESS OBJECTS DEVELOPER Gender Identity Female 10/22/2021 5:54 AM SENIOR BUSINESS OBJECTS DEVELOPER Sexual Orientation Not on file documented [...] Flores - 01/20/2022 2:33 PM CDT Patient Senior Accountant called in today she stated that Mrs. Santos Dr Yue Knight refuses to treat her due to the fact that she did not order the urine culture and she is asking if she could be treated. documented in this encounter Plan of Treatment Upcoming Encounters Date Type Department Care Team (Late st Contact Info) Description 09/17/2024 3:00 PM SENIOR BUSINESS OBJECTS DEVELOPER Office Visit [facility] - Neurology [address] [place] [address], [place] [address] Connor Higgins MD [address] [place] [address] [place] [address] documented as of this encounter Goals Goal [...] on filedocumented in this encounter Care Teams Barrel Lathe Operator Inside Relationship Specialty Start Date End Date Jen Kam, MULTICULTURAL MANAGER-CHARGING MACHINE OPERATOR [address] [facility] [address] [place] [address] PCP - General Nurse Practitioner 11/09/21 Jose Elias Samaniego, RN 06/04/17 Pedro Cordero MD [address] [facility] [address] [place] [address] Cardiology 01/14/22 Abigail Thibodeaux MD [address] [place] [address] Psychiatry 01/14/22 Alen Cox MD [address] [facility] [address] [facility] [place] [address] Urology 01/14/22 Mindy Salgado, PA-C [address] [place] [address] Physician Casino Cage Manager Gastroenterology 01/14/22 Connor Higgins MD [address] [place] [address] Neurology 01/14/22 documented as of this encounter
--- OUTSIDE RECORDS SUMMARY | 2024-09-04 19:10 | XMS_ITS | Encounter Summary ---
Author Organization [facility] Address [address] [place] [address] Care Team Providers Care Chief Credit Officer Name Role Phone Jose Elias Samaniego RN Unavailable Unavailab Erica Tiwari [facility] Primary Care Provi leonard Yamileth Franks [facility] Primary Care Provider [phone] Jen Kam [facility] Primary Care Provider Pedro Cordero MD Unavailable [phone] Abigail Thibodeaux MD Unavailable Dutch (Cc)Mindy Unavailable Unavailable Alen Cox MD Unavailable Mindy Salgado PA-C Unavailable Connor Higgins MD Unavailable Reason for Visit * Reason Comments Refill Request Encounter Details Date Type Department Care Team (Late st Contact Info) Description 10/28/2020 Refill [facility] - Orthopedics [address] [place] [address], [place] [address] Carlos Manriquez MD [address] [place] [address] [place] [address] Refill Request Social History Tobacco [...] Sex Assigned at Female 10/22/2021 5:54 AM CIVILIAN JAIL OFFICER Gender Identity Female 10/22/2021 5:54 AM CIVILIAN JAIL OFFICER Sexual Orientation Not on file documented as [...] st Contact Info) Description 09/17/2024 3:00 PM CIVILIAN JAIL OFFICER Office Visit [facility] - Neurology [address] [place] [address], [place] [address] Connor Higgins MD [address] [place] [address] [place] [address] documented as of this encounter Goals Goal [...] on filedocumented in this encounter Care Teams Chief Credit Officer Relationship Specialty Start Date End Date UyennathalieErica, DOCKING PILOT-SPOT BILLING CLERK PCP - General 02/06/18 09/26/21 Yamileth Franks, DOCKING PILOT-SPOT BILLING CLERK [address] [place] [address] PCP - General 09/27/21 11/08/21 Jen Kam, DOCKING PILOT-SPOT BILLING CLERK [address] [facility] 205 [place] [address] PCP - General Nurse Practitioner 11/09/21 Jose Elias Samaniego, RN 06/04/17 Pedro Cordero MD [address] [facility] [address] [place] [address] Cardiology 01/14/22 Abigail Thibodeaux MD [address] [place], [place] [phone] Psychiatry 01/14/22 Dutch (Cc)Mindy Gastroenterology 01/14/22 01/14/22 [place] [address] [place] [address], [facility] [place] [address] Urology 01/14/22 Mindy Salgado PA-C [address] [facility] 3L [place] [address] Physician Magazine Grinder Loader Gastroenterology 01/14/22 Connor Higgins MD [address] [facility] [address]L [place] [address] Neurology 01/14/22 documented as of this encounter
--- OUTSIDE RECORDS SUMMARY | 2024-09-04 19:10 | XMS_ITS | Encounter Summary ---
Author Organization [facility] Address [address] [facility] [address] [place] [address] Care Team Providers Care Tool Machine Setup Operator Name Role Phone Jose Elias Samaniego RN Unavailable Unavailab Erica Tiwari DISK RECORDIST-[facility] Primary Care Provi leonard Yamileth Franks DISK RECORDIST[facility] Primary Care Provider [phone] Jen Kam DISK RECORDIST-[facility] Primary Care Provider Pedro Cordero MD Unavailable [phone] Abigail Thibodeaux MD Unavailable Dutch (Cc)Mindy Unavailable Unavailable Alen Cox MD Unavailable Mindy Salgado PA-C Unavailable Connor Higgins MD Unavailable Reason for Visit * Reason Onset Date Comments MEDICATION REFILL 09/05/2021 Encounter Details Date Type Department Care Team (Late st Contact Info) Description 09/05/2021 Refill [facility] [address] [place] [address], [place] [address] Erica Reno DISK RECORDIST-LEASE EXAMINER [address] [place] [address] 2L DIV [place] [address] MEDICATION REFILL Social History Tobacco [...] Sex Assigned at Female 10/22/2021 5:54 AM SILK SCREEN CUTTER Gender Identity Female 10/22/2021 5:54 AM SILK SCREEN CUTTER Sexual Orientation Not on file documented as [...] st Contact Info) Description 09/17/2024 3:00 PM SILK SCREEN CUTTER Office Visit [facility] - Neurology [address] [place] [address], [facility] [place] [address] Connor Higgins MD [address] [place] [address] [place] [address] documented as of this encounter Goals Goal [...] on filedocumented in this encounter Care Teams Tool Machine Setup Operator Relationship Specialty Start Date End Date Erica Reno, DISK RECORDIST-[facility] PCP - General 02/06/18 09/26/21 Yamileth Franks, DISK RECORDIST-[facility] [address] [place] [phone] PCP - General 09/27/21 11/08/21 Jen Kam, DISK RECORDIST-[facility] [address] [phone] PCP - General Nurse Practitioner 11/09/21 Jose Elias Samaniego, RN 06/04/17 Pedro Cordero MD [address] [facility] [address] [place] [address] Cardiology 01/14/22 Abigail Thibodeaux MD [address] [place] [address] Psychiatry 01/14/22 Dutch (Cc)Mindy Gastroenterology 01/14/22 01/14/22 Alen Cox MD [address] [place] [address] [address] Urology 01/14/22 Mindy Salgado PA-C [address] [facility] 3L [place] [phone] Physician Strategy Analyst Gastroenterology 01/14/22 Connor Higgins MD [address] [place] [address] Neurology 01/14/22 documented as of this encounter
--- OUTSIDE RECORDS SUMMARY | 2024-09-04 19:10 | XMS_ITS | Encounter Summary ---
Author Organization [facility] Address [address] [facility] [place] [address] Care Team Providers Care Cleaning Crew Member Name Role Phone Jose Elias Samaniego RN Unavailable Unavailab Erica Tiwrai PERSONAL CARE AIDE-TEMPLATE CLERK Primary Care Provi leonard Yamileth Franks PERSONAL CARE AIDE-TEMPLATE CLERK Primary Care Provider [phone] Jen Kam PERSONAL CARE AIDE-TEMPLATE CLERK Primary Care Provider Pedro Cordero MD Unavailable [phone] Abigail Thibodeaux MD Unavailable Dutch (Cc)Mindy Unavailable Unavailable Alen Cox MD Unavailable Mindy Salgado PA-C Unavailable Connor Higgins MD Unavailable Reason for Visit * Reason Onset Date Comments Home Health 05/28/2019 Follow-up 05/29/2019 message relayed Encounter Details Date Type Department Care Team (Late st Contact Info) Description 05/28/2019 Telephone [facility] [address] [place] [address] Erica Reno PERSONAL CARE AIDE-TEMPLATE CLERK [address] 2L DIV OF [place] [address] Home Health; Follow-up (message relayed) [...] Sex Assigned at Female 10/22/2021 5:54 AM INSTALLER INSPECTOR FINAL Gender Identity Female 10/22/2021 5:54 AM INSTALLER INSPECTOR FINAL Sexual Orientation Not on file documented as [...] for Parkinson's. Provided call back number of [phone] Message routed to provider for review and assistance documented in this encounter Plan of Treatment Upcoming Encounters Date Type Department Care Team (Late st Contact Info) Description 09/17/2024 3:00 PM INSTALLER INSPECTOR FINAL Office Visit [facility] - Neurology [address] [place] [address], [facility] [place] [address] Connor Higgins MD [address] [place] [address] [place] [address] documented as of this encounter [...] on filedocumented in this encounter Care Teams Cleaning Crew Member Relationship Specialty Start Date End Date Erica Reno APRN-CNP PCP - General 02/06/18 09/26/21 Yamileth Franks APRN-CNP [address] [place] [phone] PCP - General 09/27/21 11/08/21 Jen Kam, PERSONAL CARE AIDE-TEMPLATE CLERK [address] [facility] [address] [place] [phone] PCP - General Nurse Practitioner 11/09/21 Jose Elias Samaniego, RN 06/04/17 Pedro Cordero MD [address] [facility] [address] [place] [address] Cardiology 01/14/22 Abigail Thibodeaux MD [address] [place] [address] Psychiatry 01/14/22 Dutch (Cc), Mindy Gastroenterology 01/14/22 01/14/22 [place] [address] [place] [address] [place], [facility] [place] [address] Urology 01/14/22 Mindy Salgado PAHodaC [address] 3[address] DIV [place] [address] Physician Senior Peoplesoft Developer Gastroenterology 01/14/22 Connor Higgins MD [address] [place] [address] Neurology 01/14/22 documented as of this encounter
--- OUTSIDE RECORDS SUMMARY | 2024-09-04 19:10 | XMS_ITS | Encounter Summary ---
Author Organization [facility] Address [address] [facility] [place] [address] Care Team Providers Care Atomic Welder Name Role Phone Jose Elias Samaniego RN Unavailable Unavailab Erica Tiwari GREENHOUSE TRANSPLANTER-LICENSED BONDSMAN Primary Care Provi leonard Yamileth Franks GREENHOUSE TRANSPLANTER-L[employer]ED [employer]ONDSMAN Primary Care Provider [phone] Jen Kam GREENHOUSE TRANSPLANTER-[facility] Primary Care Provider Pedro Cordero MD Unavailable [phone] Abigail Thibodeaux MD Unavailable Dutch (Cc)Mindy Unavailable Unavailable Alen Cox MD Unavailable Mindy Salgado PA-C Unavailable Connor Higgins MD Unavailable Reason for Visit * Reason Onset Date Comments Medication Prior Auth Request 10/17/2018 Om eprazole Encounter Details Date Type Department Care Team (Late st Contact Info) Description 10/17/2018 Telephone [facility] [address] [address] Erica Reno GREENHOUSE TRANSPLANTER-LICENSED BONDSMAN [address] 2L [place] [phone] Medication Prior Auth Request (Omeprazole ) Social [...] Sex Assigned at Female 10/22/2021 5:54 AM DELIVERY CONSULTANT Gender Identity Female 10/22/2021 5:54 AM DELIVERY CONSULTANT Sexual Orientation Not on file documented as [...] Juany Preston LPN - 10/17/2018 10:07 AM DELIVERY CONSULTANT Insurance requires PA for Omeprazole . Form placed in providers box. Please return to triage located in [facility] when finished. VERY CONSULTANT * Telephone Encounter - Tatianna Calderon - 10/17/2018 8:38 AM CST Pharmacy faxing in notice that Omeprazole needs a prior auth. Notice located under patient's media tab dated 10-15-18. Message forwarded to [facility] for assistance. VERY CONSULTANT documented in this encounter Plan of Treatment Upcoming Encounters Date Type Department Care Team (Late st Contact Info) Description 09/17/2024 3:00 PM DELIVERY CONSULTANT Office Visit [facility] - Neurology [address] [place] [address], [place] [address] Connor Higgins MD [address] [place] [address] [place] [address] documented as of this encounter Visit Diagnoses Not on filedocumented in this encounter Care Teams Atomic Welder Relationship Specialty Start Date End Date Erica Reno, GREENHOUSE TRANSPLANTER-LICENSED BONDSMAN PCP - General 02/06/18 09/26/21 Yamileth Franks, GREENHOUSE TRANSPLANTER-LICENSED [place]ONDSMAN [address] [place] [phone] PCP - General 09/27/21 11/08/21 Jen Kam, GREENHOUSE TRANSPLANTER-LICENSED BONDSMAN [address] [place] [phone] PCP - General Nurse Practitioner 11/09/21 Jose Elias Samaniego, RN 06/04/17 Pedro Cordero MD [address] [facility] [address] [place] [address] Cardiology 01/14/22 Abigail Thibodeaux MD [address] [place] [address] Psychiatry 01/14/22 Dutch (Cc)Mindy Gastroenterology 01/14/22 01/14/22 Alen Cox MD [address] [facility] [address], [place] [address] Urology 01/14/22 Mindy Salgado PA-C [address] [place] [address] Physician Timber Repairer Gastroenterology 01/14/22 Connor Higgins MD [address] [place] [address] Neurology 01/14/22 documented as of this encounter
--- OUTSIDE RECORDS SUMMARY | 2024-09-04 19:10 | XMS_ITS | Encounter Summary ---
Author Organization [facility] Address [address] [facility] [place] [address] Care Team Providers Care Air Force Pilot Name Role Phone Jose Elias Samaniego RN Unavailable Unavailab Ercia Tiwari [facility] Primary Care Provi leonard Yamileth Franks FRETTED STRING INSTRUMENT REPAIRER-[facility] Primary Care Provider [phone] Jen Kam FRETTED STRING INSTRUMENT REPAIRER-[facility] Primary Care Provider Pedro Cordero MD Unavailable [phone] Abigail Thibodeaux MD Unavailable Dutch (Cc)Mindy Unavailable Unavailable Alen Cox MD Unavailable Mindy Salgado PA-C Unavailable Connor Higgins MD Unavailable Reason for Visit * Reason Onset Date Comments Order Information Change 01/03/2019 Encounter Details Date Type Department Care Team (Late st Contact Info) Description 01/03/2019 Telephone [facility] [address] [place] [address] Melanie Thomas Order Information Change [...] Sex Assigned at Female 10/22/2021 5:54 AM MOBILE WEB APPLICATION DEVELOPER Gender Identity Female 10/22/2021 5:54 AM MOBILE WEB APPLICATION DEVELOPER Sexual Orientation Not on file documented [...] be changed to.... VAS LEFT DUPLEX LE [id number] Thanks! documented in this encounter Plan of Treatment Upcoming Encounters Date Type Department Care Team (Late st Contact Info) Description 09/17/2024 3:00 PM MOBILE WEB APPLICATION DEVELOPER Office Visit [facility] - Neurology [address] [place] [address], [place] [address] Connor Higgins MD [address] [place] [address] [place] [address] documented as of this encounter Visit Diagnoses Not on filedocumented in this encounter Care Teams Air [employer] Pilot Relationship Specialty Start Date End Date Erica Reno APRN-DENTAL SURGERY DOCTOR PCP - General 02/06/18 09/26/21 Yamileth Franks, FRETTED STRING INSTRUMENT REPAIRER-DENTAL SURGERY DOCTOR [address] [place] [phone] PCP - General 09/27/21 11/08/21 Jen Kam, FRETTED STRING INSTRUMENT REPAIRER-DENTAL SURGERY DOCTOR [address] [facility] [address] [place] [phone] PCP - General Nurse Practitioner 11/09/21 Jose Elias Samaniego, RN 06/04/17 Pedro Cordero MD [address] [facility] [address] [place] [address] Cardiology 01/14/22 Abigail Thibodeaux MD [address] [place] [address] Psychiatry 01/14/22 Dutch (Cc)Mindy Gastroenterology 01/14/22 01/14/22 Alen Cox MD [address] [facility] 11[facility], [facility] [address] Urology 01/14/22 Mindy Salgado PAHodaC [address] [facility] 3L [place] [address] Physician Plastics Fitter Gastroenterology 01/14/22 Connor Higgins MD [address] [facility] [address]L [place] [address] Neurology 01/14/22 documented as of this encounter
--- OUTSIDE RECORDS SUMMARY | 2024-09-04 19:10 | XMS_ITS | Patient Health Summary ---
Author Organization [facility] Address [address] [place] [address] Care Team Providers Care Equity Research Analyst Name Role Phone Jose Elias Samaniego RN Unavailable Unavailab Jen Toro DOLL REPAIRER-FLOORING SALES MANAGER Primary Care Provider Erich Huggins MD Unavailable [phone] Abigail Thibodeaux MD Unavailable Alen Cox MD Unavailable Mindy Salgado PA-C Unavailable Connor Higgins MD Unavailable Note from [facility],non-owned Affiliates and Associated Physician Practices is amultiple site organization consisting of ambulatory clinics and hospital sitesin [place], [place], [place] and [place]. This disclosure is being madepursuant to the Care Everywhere program and may not contain all information available regarding this patient. Last updated 18.[facility] Allergies * Adhesive Sensitivity(Rash,Itching) -Medium Criticality * [...] refill by 01/02/2025 * saline nasal spray ([place]; Baby [place]) 0.65 % nasal spray(Started 02/05/2024) [place] 1 (one) spray into each nostril every [...] Complicated Urinary Tract Infection,verified with patient and divisional human resources director that pt can take [facility]odox[facility], [facility] * fluconazole (DIFLUCAN) [...] DAY FOR 2 DAYS * nystatin (Mycostatin) 285910 UNIT/ML suspension(Started 02/19/2024) (Discontinued) * furosemide (Lasix) [...] bronchit is type 11/24/2022 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 MACHINE OPERATOR Gender Identity Female 10/22/2021 5:54 AM YARN BLEACHING MACHINE OPERATOR Sexual Orientation Not on file Last Filed Vital Signs Vital Sign Reading Time Taken Comments Blood Pressure 149/86 06/11/2024 12:39 PM CDT Pulse 96 06/11/2024 12:39 PM CDT Temperature 36.6 ??C (97.8 ??F) 06/11/2024 12:39 PM C DT Respiratory Rate 16 02/28/2024 9:48 AM CDT Oxygen Saturation 98% 02/28/2024 9:48 AM CDT Inhaled Oxygen Concentration 25% 08/21/2022 1 2:31 PM YARN BLEACHING MACHINE OPERATOR Weight 74.4 kg (164 lb) 06/11/2024 12:39 PM CDT Height 170.2 cm (5' 7 ) 06/11/2024 12:39 PM CDT Body Mass Index 25.69 06/11/2024 12:39 PM CDT Medical Devices Implanted Type Area Chicken Handler Device Identifier Shelf Expiration Date Model / Serial / Lot Cmpnt Fem Kn Rt 5 Crcte Rtn Legion Watt Implanted:Qty: 1 on 06/04/2017 by Taiwo Pérez MD at [facility] Right: Knee [employer] 04/29/2027 [id number] / / [id number] Nadir Basic Oli Excludes Agc Kn Implanted:Qty: 1 on 06/04/2017 by Taiwo Pérez MD at [facility] [employer] BILL ONLY BASIC OLI EXCLUDES AGC KN SNOR / / Stem Tib 55mm 18mm Prfx Mtphsl Kn Implanted:Qty: 1 on 06/04/2017 by Taiwo Pérez MD at [facility] Right: Knee [employer] 04/13/2027 [id number] / / [id number] Ins Tib 3-4 9mm Kn Xlpe Dsh Legion Implanted:Qty: 1 on 06/04/2017 by Taiwo Pérez MD at [facility] Right: Knee [employer] 11/14/2026 [id number] / / [id number] Bsplt Tib Legion 3 Kn Rt Watt Por Implanted:Qty: 1 on 06/04/2017 by Taiwo Pérez MD at [facility] Right: Knee [employer] 11/05/2026 [id number] / / [id number] Screw Bsplt 15mm 6.5mm Gns2 Kn Tib Por Implanted:Qty: 1 on 06/04/2017 by Taiwo Pérez MD at [facility] Right: Knee [employer] 11/20/2026 [id number] / / [id number] Screw Bsplt 30mm 6.5mm Gns2 Kn Tib Por Implanted:Qty: 1 on 06/04/2017 by Taiwo Pérez MD at [facility] Right: Knee [employer] 09/25/2026 [id number] / / [id number] Screw Bsplt 20mm 6.5mm Gns2 Kn Tib Por Implanted:Qty: 1 on 06/04/2017 by Taiwo Pérez MD at [facility] Right: Knee [employer] 04/16/2027 [id number] / / [id number] Screw Bsplt 30mm 6.5mm Gns2 Kn Tib Por Implanted:Qty: 1 on 06/04/2017 by Taiwo Pérez MD at [facility] Right: Knee [employer] 04/16/2027 [id number] / / [id number] [employer] W/Dynacord Implanted:Qty: 1 on 02/05/2019 by Bryn Rose MD at [facility] Right: Shoulder 05/12/2021 [id number] / / [id number] Description:ab [employer] W/Dynacord Implanted:Qty: 1 on 02/05/2019 by Bryn Rose MD at [facility] Right: Shoulder 10/10/2021 [id number] / / [id number] Description:ab Energy 5.5 Healix Adv Knt Br Implanted:Qty: 1 on 02/05/2019 by Bryn Rose MD at [facility] Right: Shoulder 01/10/2021 [id number] / / [id number] Description:ab HEALIX ADVANCE KNOTLESS BR ANCHOR Energy 5.5 Healix Adv Knt Br Implanted:Qty: 2 on 02/05/2019 by Bryn Rose MD at [facility] Right: Shoulder 03/12/2021 [id number] / / [id number] Description:ab HEALIX ADVANCE KNOTLESS BR ANCHOR Graft Tissue Allomend Aclr Drml Mtrx 8x4 Implanted:Qty: 1 on 02/05/2019 by Bryn Rose MD at [facility] Right: Shoulder [employer] 09/21/2020 [id number] / / [id number] Description:ab Energy 6.5 Healix Adv Knt Br Implanted:Qty: 2 on 02/05/2019 by Bryn Rose MD at [facility] Right: Shoulder 10/10/2021 [id number] / / [id number] Description:HEALIX ADVANCE K NOTLESS BR ANCHOR [employer] Hydrophobic Acrylic Intraocular Lens Implanted:Qty: 1 on 06/07/2022 by Mery Patel MD at [facility] Left: Eye [employer] 01/10/2025 [id number] 20.0 / [id number] / [id number] [employer] Implanted:Qty: 1 on 06/21/2022 by Mery Patel MD at [facility] Right: Eye 09/12/2024 MX60E 20.00 / [id number] / [id number] Patch Cv 6x1cm Vsgrd Bvn Pricrd Strl Implanted:Qty: 1 on 08/18/2022 by Yudith Rodriguez MD at [facility] Right: Carotid [employer] 09/01/2026 [id number] / / [id number] Explanted Type Area Chicken Handler Device Identifier Shelf Expiration Date Model / Serial / Lot Screw Bsplt 25mm 6.5mm Gns2 Kn Tib Por Explanted:Qty: 1 on 06/04/2017 by Taiwo Pérez MD at [facility] Right: Knee [employer] 04/16/2027 [id number] / / [id number] Procedures * VAS CAROTID DUPLEX BILATERAL(Performed 06/11/2024) Performed for Bilateral carotid artery stenosis * URINALYSIS AUTO - POINT OF CARE (AMB) [facility](Performed 02/28/2024) Performed for Urge incontinence * ID MSR PVR U&/BLADD CAPCTY US NON(Performed 02/28/2024) [...] with hyperglycemia, without long-term current use of insulin([facility]) * GLUCOSE - POINT OF CARE(Performed 12/27/2023) [...] (AMB) [facility](Performed 12/26/2023) Performed for Dysuria * ID MSR PVR U&/BLADD CAPCTY US NON(Performed 12/26/2023) [...] URINE(Performed 11/27/2023) Performed for Recurrent UTI * ID MSR PVR U&/BLADD CAPCTY US NON(Performed 11/27/2023) [...] without heart failure, Coronary artery disease involving [place] coronary artery of [place] heart, unspecified whether angina present, Carotid stenosis, right, TIA (transient ischemic attack), Essential hypertension, LVH (left ventricular hypertrophy) due to hypertensive disease, without heart failure * FRUCTOSAMINE(Performed 07/26/2023) Performed for Type 2 diabetes mellitus with hyperglycemia, without long-term current use of insulin([facility]) * MICROALB/CREAT RATIO URINE RANDOM PANEL(Performed 04/12/2023) Performed for Type 2 diabetes mellitus with hyperglycemia, without long-term current use of insulin([facility]) * URINALYSIS MICROSCOPIC ONLY REFLEXED(Performed 03/28/2023) Performed [...] RED BLOOD CELL LEUKOREDUCED UNIT(S)(Performed 02/17/2023) * ID EXPL N/FLWD SURG LXTR ART(Performed 02/17/2023) Performed [...] stenosis, right * CULTURE URINE(Performed 09/03/2022) * ID MSR PVR U&/BLADD CAPCTY US NON(Performed 08/31/2022) [...] CARE(Performed 08/18/2022) * ACT LR - POCT ([facility])(Performed 08/18/2022) * GLUCOSE - POINT OF CARE(Performed 08/18/2022) * PATHOLOGY TISSUE(Performed 08/18/2022) Performed for Stenosis of carotid artery, unspecified laterality * ID TEAEC W/PATCH GRF CRTD VRT SUBCLA NCK [...] Coronary artery disease involvingnative coronary artery of [place] heart, unspecified whether angina present, Heart palpitations, [...] for Breast cancer screening by mammogram * ID REMOTE 30 DAY ECG REV/REPORT(Performed 01/15/2022) Performed [...] site * HEMOGLOBIN A1C(Performed 09/20/2021) Performed for alf current use of antipsychotic medication * LIPID PROFILE(Performed 09/20/2021) Performed for alf current use of antipsychotic medication * FOLATE(Performed [...] URINE(Performed 08/18/2021) Performed for Recurrent UTI * ID MSR PVR U&/BLADD CAPCTY US NON(Performed 08/18/2021) [...] INTERFACED(Performed 05/03/2021) * CULTURE URINE(Performed 04/21/2021) * ID CYSTOURETHROSCOPY(Performed 04/11/2021) Performed for Recurrent UTI * ID MSR PVR U&/BLADD CAPCTY US NON(Performed 04/07/2021) [...] whether esophagitis present, Diarrhea, unspecified type * ID COLONOSCOPY, DIAGNOSTIC(Performed 12/14/2020) Performed for Gastroesophageal reflux disease, unspecified whether esophagitis present, Diarrhea, unspecified type * ID ED EGD FLEX TRANSORAL DX(Performed 12/14/2020) Performed for Gastroesophageal reflux disease, unspecified whether esophagitis present, Diarrhea, unspecified type * EGD(Performed 12/14/2020) * ENDOSCOPY, COLON, SCREENING(Performed 12/14/2020) * GLUCOSE - POINT OF CARE(Performed 12/14/2020) * BASIC METABOLIC PANEL (CALCIUM TOTAL)(Performed 12/01/2020) Performed for High risk medications (not anticoagulants) long-term use * CULTURE URINE(Performed 12/01/2020) Performed for Acute cystitis without hematuria * ID ECG/REVIEW INTERPRET ONLY(Performed 11/13/2020) Performed for Heart [...] hyperglycemia, without long-term current use of insulin ([facility]), Hypokalemia, SOB (shortness of breath) * PROC EKG IN CLINIC(Performed 09/10/2020) Performed for Heart palpitations, SOB (shortness of breath) * HEMOGLOBIN A1C - POINT OF CARE (AMB) [facility](Performed 09/10/2020) Performed for Controlled type 2 diabetes mellitus without complication, without long-term current use of insulin ([facility]) * CT CERVICAL SPINE WO CONTRAST(Performed 08/20/2020) [...] with hyperglycemia, without long-term current use of insulin([facility]) * CULTURE URINE(Performed 02/19/2020) * CULTURE STOOL [...] COMPREHENSIVE(Performed 05/23/2019) Performed for Recurrent UTI * ID INSERT NON-INDWELLING BLADDER(Performed 05/23/2019) Performed for Recurrent [...] COMPREHENSIVE(Performed 02/25/2019) Performed for Recurrent UTI * ID CYSTOURETHROSCOPY(Performed 02/25/2019) Performed for Recurrent UTI * [...] with hyperglycemia, without long-term current use of insulin([facility]), Essential hypertension * CBC W AUTO DIFFERENTIAL(Performed 12/18/2018) Performed for Left ankle swelling, Urinary tract infection without hematuria, site unspecified, Type 2 diabetes mellitus with hyperglycemia, without long-term current use of insulin ([facility]), Essential hypertension * XR SHOULDER RIGHT 2VW OR MORE(Performed 12/10/2018) Performed for Right shoulder pain, unspecified chronicity * CULTURE URINE(Performed 12/09/2018) Performed for Acute cystitis without hematuria * STREP PNEUMO AB IGG 23 SEROTYPES PANEL(Performed 12/09/2018) Performed for Type 2 diabetes mellitus with hyperglycemia, without long-term current use of insulin([facility]), T12 compression fracture ([facility]) * B-TYPE NATRIURETIC PEPTIDE(Performed 12/09/2018) Performed for Urge incontinence, Type 2 diabetes mellitus with hyperglycemia, without long-term current use of insulin ([facility]) * LIPID PROFILE(Performed 12/09/2018) Performed for Hyperlipidemia, unspecified hyperlipidemia type * CULTURE URINE(Performed 11/25/2018) Performed for Acute cystitis without hematuria * URINALYSIS W/MICROSCOPIC NO CULTURE(Performed 11/06/2018) Performed for Recurrent UTI * CULTURE URINE(Performed 11/06/2018) Performed for Recurrent UTI * CULTURE URINE(Performed 10/23/2018) Performed for Dysuria * CULTURE URINE COMPREHENSIVE(Performed 10/09/2018) Performed for Recurrent UTI * ID INSERT NON-INDWELLING BLADDER(Performed 10/09/2018) Performed for Recurrent UTI * URINALYSIS - POINT OF CARE(Performed 10/09/2018) Performed for Recurrent UTI * LIPID PROFILE(Performed 10/01/2018) * HEMOGLOBIN - POINT OF CARE (AMB) [facility](Performed 08/09/2018) Performed for Type 2 diabetes mellitus with complication, without long-term current use of insulin ([facility]) * DIPHTHERIA ANTIBODY(Performed 06/06/2018) Performed for Hypogammaglobulinemia [...] 03/15/2018) Performed for Breast cancer screening * ID 3 COMP FOOT EXAM COMPLETED(Performed 03/07/2018) Performed [...] for Edema extremities, Dyspnea, unspecified type * ID INJ PERFLUTREN LIP MICROS,ML(Performed 01/14/2018) Performed for Coronary artery disease involving [place] coronary artery of [place] heart, angina presence unspecified * ID TTE W/DOPPLER, COMPLETE(Performed 01/14/2018) Performed for Coronary artery disease involving [place] coronary artery of [place] heart, angina presence unspecified * ID DRAIN/INJECT LARGE JOINT/BURSA(Performed 12/26/2017) Performed for Trochanteric [...] unspecified * CYTOLOGY URINE(Performed 05/07/2013) * CYTOLOGY NON-ELIGIBILITY SERVICES REPRESENTATIVE PANEL ([facility])(Performed 04/25/2013) * CULTURE URINE COMPREHENSIVE(Performed [...] - [facility] [address] Specific [place] UA 1.[address] [facility] [address] Blood [...] 02/28/2024 1 1:15 AM CDT Cayla Ramirez DOLL REPAIRER-FLOORING SALES MANAGER LAB - POINT OF CARE ORDERABLES [facility] [address] [place] [address], [facility] [phone] * ID MSR PVR U&/BLADD CAPCTY US NON (02/28/2024 11:14 AM CDT) Narrative Loan Antonio MA - 02/28/2024 11:14 AM CDT Loan Antonio MA ? 03/03/2024 ??9:24 AM Bladder scan completed. 43ml post void residual. Cayla Ramirez DOLL REPAIRER-FLOORING SALES MANAGER PROCEDURE/MINOR SURGICAL ORDERABLES * CT UROGRAM (02/28/2024 9:29 AM CDT) Only the most recent of4 resultswithin the time period is included. Anatomical Region Laterality Modality Abdomen, Pelvis Computed Tomogra phy 02/28/2024 10:1 4 AM CDT Narrative 02/28/2024 10:56 AM CDT PROCEDURE: ??CT UROGRAM, DATE/TIME OF EXAM: ??02/28/2024 9:32 AM, LOCATION ??[facility] INDICATION: N39.0: Urinary tract infection, site [...] UROGRAM, DATE/TIME OF EXAM: 02/28/2024 9:32 AM, [facility] INDICATION: N39.0: Urinary tract infection, [...] MD on 02/28/2024 10:56 AM Cayla Neris DOLL REPAIRER-FLOORING SALES MANAGER CT ORDERABLES * (ABNORMAL) URINE MICROSCOPIC ONLY REFLEX TO CULTURE (02/13/2024 11:02 AM CDT) Only the most recent of3 resultswithin the time period is included. Reflex Status Culture to follow 02/13/2024 12:41 PM CDT [facility] WBC UA 21-50(A) None Seen, 0-5 /HPF 02/13/2024 12:41 PM T [facility] Bacteria UA Trace(A) None /HPF 02/13/2024 12:41 PM T [facility] Yeast Budding UA Many(A) None /HPF 02/13/2024 12:41 PM CDT [facility] Squamous Epithelial Cells UA 0-2 None Seen, 0-2, 3-5 /HPF 02/13/2024 12:41 PM T [facility] Mucus UA 1+ /LPF 02/13/2024 12:41 PM CDT [facility] Urine URINE SPECIMEN OBTAINED BY CLEAN CATCH PROCEDURE / Unknown Collection / Unknown 02/13/2024 11:02 AM CDT 02/13/2024 12:18 PM CDT [facility] - 02/13/2024 12:41 PM CDT Silviano York III, MD LAB - URINALYSIS ORDERABLES [facility] [address] [place] [address], [facility] [phone] * (ABNORMAL) URINALYSIS REFLEX MICROSCOPIC REFLEX CULTURE (02/13/2024 11:02 AM CDT) Only the most recent of5 resultswithin the time period is included. Color UA Yellow Straw, Yellow 02/13/2024 12:40 PM CDT [facility] Clarity UA Slt Cloudy(A) Clear 02/13/2024 12:40 PM CDT [facility] Specific [place] UA 1.015 1.005 - 1.030 02/13/2024 12:40 PM CDT [facility] pH UA 5.0 5.0 - 8.0 pH 02/13/2024 12:40 PM CDT [facility] Protein UA Negative Negative 02/13/2024 12:40 PM CDT [facility] Glucose UA Negative Negative 02/13/2024 12:40 PM CDT [facility] Ketone UA Trace(A) Negative 02/13/2024 12:40 PM CDT [facility] Bilirubin UA Negative Negative 02/13/2024 12:40 PM CDT [facility] Blood UA Negative Negative 02/13/2024 12:40 PM CDT [facility] Nitrite UA Negative Negative 02/13/2024 12:40 PM T [facility] Leukocyte Esterase Trace(A) Negative 02/13/2024 12:40 PM T [facility] Urobilinogen UA Negative Negative mg/dL 02/13/2024 12:40 PM T [facility] Urine URINE SPECIMEN OBTAINED BY CLEAN CATCH PROCEDURE / Unknown Collection / Unknown 02/13/2024 11:02 AM CDT 02/13/2024 12:18 PM CDT Narrative [facility] - 02/13/2024 12:40 PM CDT Silviano York III, MD LAB - URINALYSIS ORDERABLES [facility] [address] [place] [address], [facility] [phone] * CULTURE URINE (02/13/2024 11:02 AM CDT) Only the most recent of75 resultswithin the time period is included. Culture Urine 10,000-50,000 CFU/mL urogenital ender LYNNE 02/15/2024 2:20 AM CDT [facility] Urine URINE SPECIMEN OBTAINED BY CLEAN CATCH PROCEDURE / Unknown Collection / Unknown 02/13/2024 11:02 AM CDT 02/13/2024 12:41 PM CDT Silviano York III, MD LAB - MICROBIOLOG Y ORDERABLES [facility] [address] [place] [address], [facility] [phone] * (ABNORMAL) BASIC METABOLIC PANEL (CALCIUM TOTAL) (02/13/2024 11:02 AM CDT) Only the most recent of84 resultswithin the time period is included. BUN 12 7 - 26 mg/dL 02/13/2024 12:47 PM [facility] Creatinine 0.74 0.56 - 0.96 mg/dL 02/13/2024 12:47 PM [facility] Sodium 146(H) 136 - 145 mmol/L 02/13/2024 12:47 PM [facility] Potassium 3.0(L) 3.5 - 4.5 mmol/L 02/13/2024 12:47 PM [facility] Chloride 107 98 - 107 mmol/L 02/13/2024 12:47 PM [facility] CO2 28 22 - 29 mmol/L 02/13/2024 12:47 PM [facility] Glucose 126(H) 70 - 115 mg/dL 02/13/2024 12:47 PM [facility] Calcium 9.5 8.4 - 10.2 mg/dL 02/13/2024 12:47 PM [facility] Anion Gap 11 6 - 16 02/13/2024 12:47 PM [facility] BUN/Creatinine Ratio 16 7 - 23 02/13/2024 12:47 PM [facility] Osmolality Calculated 303(H) 275 - 295 mOsm/kg 02/13/2024 12:47 PM [facility] eGFR by CKD-EPI 89(L) >=90 mL/min/1.7 3 m2 02/13/2024 12:47 PM [facility] Blood BLOOD SPECIMEN / Unknown Lab Venipuncture / Unknown 02/13/2024 11:02 AM CDT 02/13/2024 12:20 PM CDT Silviano York III, MD LAB - CHEMISTRY O RDERABLES [facility] [address] [place] [address], [facility] [phone] * (ABNORMAL) CBC W AUTO DIFFERENTIAL (02/05/2024 3:01 PM CDT) Only the most recent of85 resultswithin the time period is included. WBC 11.9(H) 4.0 - 10.7 x10E9/L 02/05/2024 3:23 PM [facility] RBC Count 4.62 3.90 - 5.20 x10E12/L 02/05/2024 3:23 PM [facility] Hemoglobin 13.3 11.9 - 15.8 g/dL 02/05/2024 3:23 PM [facility] Hematocrit 39.8 34.8 - 46.1 % 02/05/2024 3:23 PM [facility] MCV 86.1 80.0 - 98.0 fL 02/05/2024 3:23 PM [facility] MCH 28.8 26.7 - 33.6 pg 02/05/2024 3:23 PM [facility] MCHC 33.4 31.7 - 36.3 g/dL 02/05/2024 3:23 PM [facility] RDW-CV 15.7(H) 11.3 - 14.8 % 02/05/2024 3:23 PM [facility] Platelet Count 216 150 - 420 x10E9/L 02/05/2024 3:23 PM [facility] MPV 9.2 7.8 - 11.4 fL 02/05/2024 3:23 PM [facility] Neutrophil % 72.8 41.0 - 74.0 % 02/05/2024 3:23 PM [facility] Lymphocyte % 19.1 17.0 - 47.0 % 02/05/2024 3:23 PM [facility] Monocyte % 6.7 3.0 - 11.0 % 02/05/2024 3:23 PM CDT [facility] Eosinophil % 0.8 0.0 - 7.0 % 02/05/2024 3:23 PM [facility] Basophil % 0.3 0.0 - 1.6 % 02/05/2024 3:23 PM T [facility] Immature Granulocytes % 0.3 0.0 - 1.0 % 02/05/2024 3:23 PM [facility] Neutrophil Absolute 8.64(H) 1.60 - 7.50 x10E9/L 02/05/2024 3:23 PM [facility] Lymphocyte Absolute 2.27 1.00 - 4.40 x10E9/L 02/05/2024 3:23 PM [facility] Monocyte Absolute 0.80 0.15 - 1.00 x10E9/L 02/05/2024 3:23 PM [facility] Eosinophil Absolute 0.09 0.00 - 0.60 x10E9/L 02/05/2024 3:23 PM [facility] Basophil Absolute 0.03 0.00 - 0.13 x10E9/L 02/05/2024 3:23 PM [facility] Blood BLOOD SPECIMEN / Unknown Lab Venipuncture / Unknown 02/05/2024 3:01 PM CDT 02/05/2024 3:17 PM CDT Greta Young MD LAB - HEMATOLOGY ORD ERABLES [facility] [address] [place] [address], [facility] [phone] * (ABNORMAL) GLUCOSE - POINT OF CARE (02/05/2024 9:25 AM CDT) Only the most recent of184 resultswithin the time period is included. Glucose WB/POC 124(H) 70 - 115 mg/dL 02/05/2024 1:49 PM CDT [facility] Specimen Type Cap Fingerstick 2023 1:49 PM T [facility] Blood BLOOD SPECIMEN / Unknown 02/05/2024 9:25 AM CDT 02/05/2024 1:49 PM CDT Cecily Marrufo DO LAB - POINT OF CARE ORDERABLES [facility] [address] [place] [address], [facility] [phone] * CULTURE FUNGUS OTHER+FUNGUS SMEAR (02/05/2024 6:24 AM CDT) Culture No fungus isolated LYNNE 03/03/2024 10:48 AM CDT [facility] Fungus Stain No yeast or hyphae seen 03/03/2024 10:48 AM CDT [facility] Microbiology URINE SPECIMEN OBTAINED BY CLEAN CATCH PROCEDURE / Unknown Collection / Unknown 02/05/2024 6:24 AM CDT 02/05/2024 6:32 AM CDT Greta Young MD LAB - MICROBIOLOGY O RDERABLES Performing Organization Address City/[facility]/ZIP Co de Phone Number [facility] [address] [place] [address], [facility] [phone] * URINE DRUG SCREEN IMMUNOASSAY (02/02/2024 3:17 PM CDT) Only the most recent of3 resultswithin the time period is included. Amphetamines Screen Urine Negative Negative: < 1000 ng/mL 02/02/2024 4:12 PM CDT [facility] Barbiturates Screen Urine Negative Negative: < 200 ng/mL 02/02/2024 4:12 PM CDT [facility] Benzodiazepine Screen Urine Negative Negative: < 200 ng/mL 02/02/2024 4:12 PM CDT [facility] Opiates Urine Negative Negative: < 300 ng/mL 02/02/2024 4:12 PM CDT [facility] Cocaine Metabolites Urine Negative Negative: < 300 ng/mL 02/02/2024 4:12 PM CDT [facility] Phencyclidine Screen Urine Negative Negative: < 25 ng/ml 02/02/2024 4:12 PM CDT [facility] Cannabinoids Screen Urine Negative Negative: <50 ng/mL 02/02/2024 4:12 PM CDT [facility] Methadone Screen Urine Negative Negative: < 300 ng/mL 02/02/2024 4:12 PM CDT [facility] Fentanyl Screen Urine Negative Negative: <1.5 ng/mL 02/02/2024 4:12 PM CDT [facility] Urine URINE / Unknown Collection / Unknown 02/02/2024 3:17 PM CDT 02/02/2024 3:45 PM CDT Narrative [facility] - 02/02/2024 4:12 PM CDT The Urine Toxicology Screening Panel does not screen for Propoxyphene, Meprobamate, Carisoprodol, Trazodone, lcpt-[id number]-[id number] medications and/or volatiles (Acetone, Isopropanol, Methanol or Ethylene Glycol). Ethanol, Salicylate, Acetaminophen, Tricyclic Antidepressants and several therapeutic drugs may be individually assayed in serum or plasma specimen. Toxicology testing by the [facility] is an aid to medical diagnosis and treatment of patients. No documented chain of custody was maintained. Results are intended to be used for clinical purposes only. ? Erich Diaz MD LAB - URINE CHEMISTR Y ORDERABLES Performing Organization Address [facility]/State/[facility] Co de Phone Number [facility] [address] [place] [address], [facility] [phone] * TROPONIN-I HIGH SENSITIVE REFLEX 1HOUR (02/02/2024 11:32 AM CDT) Troponin I High Sensitive 7 <=14 ng/L 02/02/2024 12:19 PM CDT [facility] Delta Troponin I HS 02/02/2024 12:19 PM CDT [facility] Comment:Delta value intentio cookie not calculated. Baseline to 1 hour specimen collection interval exceeded. Blood BLOOD SPECIMEN / Unknown Venipuncture / Unknown 02/02/2024 11:32 AM CDT 02/02/2024 11:36 AM CDT Erich Diaz MD LAB - CHEMISTRY [facility] [address] [place] [address], [facility] [phone] * CT CHEST ABDOMEN PELVIS W CONT [...] cystitis. > Dictated by Ankit Prabhakar MD (microarray operations vice president). I, Edmond López MD have personally reviewed and interpreted this examination/study. > Interpreting Provider: Edmond López MD on 02/02/2024 11:53 AM Narrative 02/02/2024 11:53 AM CDT PROCEDURE: ??CT CHEST ABDOMEN PELVIS W CONT, DATE/TIME OF EXAM: ??02/02/2024 10:55 AM, LOCATION ??[facility] INDICATION: Trauma ADDITIONAL CLINICAL INFORMATION: Ordering Provider [...] CONT, DATE/TIME OF EXAM:02/02/2024 10:55 AM, LOCATION [facility] INDICATION: Trauma ADDITIONAL CLINICAL INFORMATION: Ordering Provider [...] cystitis. > Dictated by Ankit Prabhakar MD (microarray operations vice president). Edmond Stevenson MD have personally reviewed and [...] pelvis. > Dictated by Nehemiah Jiménez MD (Wine Blender) Dayton Stevenson MD have personally reviewed and interpreted this examination/study. > Interpreting Provider: Dayton Kiran MD on 02/02/2024 3:07 PM Narrative 02/02/2024 3:07 PM CDT PROCEDURE: ??CT HEAD WO CONTRAST, CT CERVICAL SPINE WO CONTRAST, CT FACIAL BONES WO CONTRAST, CT LUMBAR SPINE WO CONTRAST, CT THORACIC SPINE WO CONTRAST, DATE/TIME OF EXAM: ??02/02/2024 11:32 AM, LOCATION ??[facility] INDICATION: Trauma EXAMINATION: 1. Computed tomography (CT) [...] DATE/TIME OF EXAM: 02/02/2024 11:32 AM, LOCATION [facility] INDICATION: Trauma EXAMINATION: 1. Computed tomography (CT) [...] pelvis. > Dictated by Nehemiah Jiménez MD (Wine Blender) Dayton Stevenson MD have personally reviewed and [...] pelvis. > Dictated by Nehemiah Jiménez MD (Wine Blender) Dayton Stevenson MD have personally reviewed and interpreted this examination/study. > Interpreting Provider: Dayton Kiran MD on 02/02/2024 3:07 PM Narrative 02/02/2024 3:07 PM CDT PROCEDURE: ??CT HEAD WO CONTRAST, CT CERVICAL SPINE WO CONTRAST, CT FACIAL BONES WO CONTRAST, CT LUMBAR SPINE WO CONTRAST, CT THORACIC SPINE WO CONTRAST, DATE/TIME OF EXAM: ??02/02/2024 11:32 AM, LOCATION ??[facility] INDICATION: Trauma EXAMINATION: 1. Computed tomography (CT) [...] DATE/TIME OF EXAM: 02/02/2024 11:32 AM, LOCATION [facility] INDICATION: Trauma EXAMINATION: 1. Computed tomography (CT) [...] pelvis. > Dictated by Nehemiah Jiménez MD (Wine Blender) I, Dayton Kiran MD have personally reviewed [...] pelvis. > Dictated by Nehemiah Jiménez MD (Wine Blender) IaDyton MD have personally reviewed and interpreted this examination/study. > Interpreting Provider: Dayton Kiran MD on 02/02/2024 3:07 PM Narrative 02/02/2024 3:07 PM CDT PROCEDURE: ??CT HEAD WO CONTRAST, CT CERVICAL SPINE WO CONTRAST, CT FACIAL BONES WO CONTRAST, CT LUMBAR SPINE WO CONTRAST, CT THORACIC SPINE WO CONTRAST, DATE/TIME OF EXAM: ??02/02/2024 11:32 AM, LOCATION ??[facility] INDICATION: Trauma EXAMINATION: 1. Computed tomography (CT) [...] DATE/TIME OF EXAM: 02/02/2024 11:32 AM, LOCATION [facility] INDICATION: Trauma EXAMINATION: 1. Computed tomography (CT) [...] pelvis. > Dictated by Nehemiah Jiménez MD (Wine Blender) Dayton Stevenson MD have personally reviewed and [...] pelvis. > Dictated by Nehemiah Jiménez MD (Wine Blender) Dayton Stevenson MD have personally reviewed and interpreted this examination/study. > Interpreting Provider: Dayton Kiran MD on 02/02/2024 3:07 PM Narrative 02/02/2024 3:07 PM CDT PROCEDURE: ??CT HEAD WO CONTRAST, CT CERVICAL SPINE WO CONTRAST, CT FACIAL BONES WO CONTRAST, CT LUMBAR SPINE WO CONTRAST, CT THORACIC SPINE WO CONTRAST, DATE/TIME OF EXAM: ??02/02/2024 11:32 AM, LOCATION ??[facility] INDICATION: Trauma EXAMINATION: 1. Computed tomography (CT) [...] DATE/TIME OF EXAM: 02/02/2024 11:32 AM, LOCATION [facility] INDICATION: Trauma EXAMINATION: 1. Computed tomography (CT) [...] pelvis. > Dictated by Nehemiah Jiménez MD (Wine Blender) Dayton Stevenson MD have personally reviewed and [...] pelvis. > Dictated by Nehemiah Jiménez MD (Wine Blender) Dayton Stevenson MD have personally reviewed and interpreted this examination/study. > Interpreting Provider: Dayton Kiran MD on 02/02/2024 3:07 PM Narrative 02/02/2024 3:07 PM CDT PROCEDURE: ??CT HEAD WO CONTRAST, CT CERVICAL SPINE WO CONTRAST, CT FACIAL BONES WO CONTRAST, CT LUMBAR SPINE WO CONTRAST, CT THORACIC SPINE WO CONTRAST, DATE/TIME OF EXAM: ??02/02/2024 11:32 AM, LOCATION ??[facility] INDICATION: Trauma EXAMINATION: 1. Computed tomography (CT) [...] DATE/TIME OF EXAM: 02/02/2024 11:32 AM, LOCATION [facility] INDICATION: Trauma EXAMINATION: 1. Computed tomography (CT) [...] pelvis. > Dictated by Nehemiah Jiménez MD (Wine Blender) I, Dayton Kiran MD have personally reviewed [...] DATE/TIME OF EXAM: ??02/02/2024 10:57 AM, LOCATION ??[facility] INDICATION: Trauma COMPARISON: X-ray chest 02/17/2023. TECHNIQUE: Frontal radiograph of the chest. FINDINGS/IMPRESSION: There is no focal consolidation, pleural effusion, or pneumothorax. The cardiomediastinal silhouette is stable. There is age indeterminate right lateral seventh rib fracture deformity. Report dictated by Nehemiah Jiménez MD, (Wine Blender). Annie Stevenson MD have personally reviewed and interpreted this examination/study. > Interpreting Provider: Annie Prater MD on 02/02/2024 12:38 PM Procedure Note Annie Prater MD - 02/02/2024 PROCEDURE: XR CHEST 1VW PORTABLE, DATE/TIME OF EXAM: 02/02/2024 10:57AM, LOCATION [facility] INDICATION: Trauma COMPARISON: X-ray chest 02/17/2023. TECHNIQUE: Frontal radiograph of the chest. FINDINGS/IMPRESSION: There is no focal consolidation, pleural effusion, or pneumothorax. The cardiomediastinal silhouette is stable. There is age indeterminate right lateral seventh rib fracture deformity. Report dictated by Nehemiah Jiménez MD, (Wine Blender). Annie Stevenson MD have personally reviewed and interpreted this examination/study. > Interpreting Provider: Annie Prater MD on 02/02/2024 12:38 PM Erich Diaz MD DIAGNOSTIC IMAGING O RDERABLES * PT-INR [facility] (02/02/2024 9:51 AM CDT) Only the most recent of11 resultswithin the time period is included. PT 13.2 12.1 - 14.8 Seconds 02/02/2024 10:16 AM CDT [facility] INR 1.0 See Comment 02/02/2024 10:16 AM CDT [facility] Comment:The suggested therap eutic range for standard coumadin (warfarin) therapy is an INR of 2.0-3.0. For high-risk patients (Mechanical Mitral Valve Prosthesis, etc.), the suggested prophylactic therapeutic range is an INR of 2.5-3.5. Blood BLOOD SPECIMEN / Unknown Venipuncture / Unknown 02/02/2024 9:51 AM CDT 02/02/2024 9:54 AM CDT Erich Diaz MD LAB - COAGULATION OR DERABLES Performing Organization Address City/[facility]/ZIP Co de Phone Number [address] [address], [facility] [phone] * TROPONIN-I HIGH SENSITIVE BASELINE + 1HR (02/02/2024 9:51 AM CDT) Troponin I High Sensitive 7 <=14 ng/L 02/02/2024 10:27 AM CDT [facility] Blood BLOOD SPECIMEN / Unknown Venipuncture / Unknown 02/02/2024 9:51 AM CDT 02/02/2024 9:54 AM CDT Erich Diaz MD LAB - CHEMISTRY ORDE SELENA Performing Organization Address City/[facility]/ZIP Co de Phone Number [address] [address], [facility] [phone] * TYPE + SCREEN PANEL (02/02/2024 9:51 AM CDT) Only the most recent of10 resultswithin the time period is included. Antibody Screen NEG 10:31 AM CDT [facility] ABO Rh O POS 02/02/2024 10:31 AM CDT [facility] Blood Bank BLOOD SPECIMEN / Unknown Venipuncture / Unknown 02/02/2024 9:51 AM CDT 02/02/2024 9:54 AM CDT Erich Diaz MD LAB - BLOOD BANK ORD ERABLES [facility] [address] [place] [address], [facility] [phone] * (ABNORMAL) COMPREHENSIVE METABOLIC PANEL (02/02/2024 9:51 AM [facility]) Only the most recent of34 resultswithin the time period is included. BUN 13 7 - 26 mg/dL 02/02/2024 10:23 AM [facility] Creatinine 0.93 0.56 - 0.96 mg/dL 02/02/2024 10:23 AM [facility] Sodium 145 136 - 145 mmol/L 02/02/2024 10:23 AM [facility] Potassium 3.1(L) 3.5 - 4.5 mmol/L 02/02/2024 10:23 AM [facility] Chloride 109(H) 98 - 107 mmol/L 02/02/2024 10:23 AM [facility] CO2 27 22 - 29 mmol/L 02/02/2024 10:23 AM [facility] Glucose 140(H) 70 - 115 mg/dL 02/02/2024 10:23 AM [facility] Calcium 9.2 8.4 - 10.2 mg/dL 02/02/2024 10:23 AM [facility] Protein Total 6.2 6.0 - 8.3 g/dL 02/02/2024 10:23 AM [facility] Albumin 3.7 3.4 - 5.0 g/dL 02/02/2024 10:23 AM [facility] Bilirubin Total 0.6 0.2 - 1.2 mg/dL 02/02/2024 10:23 AM [facility] Alkaline Phosphatase 72 40 - 150 U/L 02/02/2024 10:23 AM [facility] ALT <5(L) 5 - 55 U/L 02/02/2024 10:23 AM [facility] AST 17 5 - 34 U/L 02/02/2024 10:23 AM [facility] Anion Gap 9 6 - 16 02/02/2024 10:23 AM CDT [facility] BUN/Creatinine Ratio 14 7 - 23 02/02/2024 10:23 AM [facility] Osmolality Calculated 302(H) 275 - 295 mOsm/kg 02/02/2024 10:23 AM [facility] Albumin/Globulin Ratio 1.5 1.1 - 2.3 02/02/2024 10:23 AM [facility] eGFR by CKD-EPI 67(L) >=90 mL/min/1.7 3 m2 02/02/2024 10:23 AM [facility] Blood BLOOD SPECIMEN / Unknown Venipuncture / Unknown 02/02/2024 9:51 AM CDT 02/02/2024 9:54 AM CDT Erich Diaz MD LAB - CHEMISTRY ORDE SELENA [facility] Organization Address City/State/ZIP Co de Phone Number [facility] [address] [place] [address], [facility] [phone] * ALCOHOL ETHYL BLOOD (02/02/2024 9:51 AM CDT) Only the most recent of4 resultswithin the time period is included. Ethanol (mg/dL) <10 <10 mg/dL 10:23 AM [facility] Ethanol Calculated (g/dL) <0.010 <=0.010 g/dL 02/02/2024 10:23 AM T [facility] Blood BLOOD SPECIMEN / Unknown Venipuncture / Unknown 02/02/2024 9:51 AM CDT 02/02/2024 9:54 AM CDT Narrative [facility] - 02/02/2024 10:23 AM CDT Ethanol Interp <10: None Detected. Depression of REFRACTORY GRINDER OPERATOR: >100 mg/dl Potentially Critical: >250 mg/dl [...] Diaz MD LAB - CHEMISTRY [facility] Organization Address City/State/ZIP Co de Phone Number [facility] [address] [place] [address], [facility] [phone] * XR FOOT LEFT 2VW (01/08/2024 11:54 [...] MD on 01/08/2024 11:58 AM Erica Reno DOLL REPAIRER-FLOORING SALES MANAGER DIAGNOSTIC IMAGING ORDERABLES * XR ANKLE LEFT [...] MD on 01/08/2024 11:58 AM Erica Reno DOLL REPAIRER-FLOORING SALES MANAGER DIAGNOSTIC IMAGING ORDERABLES * (ABNORMAL) RENAL FUNCTION PANEL (12/29/2023 4:04 AM CDT) Only the most recent of9 resultswithin the time period is included. Glucose 135(H) 70 - 105 mg/dL 12/29/2023 6:09 AM CDT [facility] Sodium 137 136 - 145 mmol/L 12/29/2023 6:09 AM CDT [facility] Potassium 3.9 3.5 - 5.1 mmol/L 12/29/2023 6:09 AM CDT [facility] Chloride 105 98 - 107 mmol/L 12/29/2023 6:09 AM CDT [facility] CO2 22 22 - 29 mmol/L 12/29/2023 6:09 AM CDT [facility] Calcium 9.4 8.4 - 10.4 mg/dL 12/29/2023 6:09 AM T [facility] Anion Gap 10 6 - 16 mmol/L 12/29/2023 6:09 AM CDT [facility] BUN 23 7 - 26 mg/dL 12/29/2023 6:09 AM T [facility] Creatinine 0.97 0.57 - 1.11 mg/dL 12/29/2023 6:09 AM CDT [facility] Albumin 3.6 3.4 - 5.0 gm/dL 12/29/2023 6:09 AM T [facility] Phosphorus 3.6 2.3 - 4.7 mg/dL 12/29/2023 6:09 AM T [facility] eGFR by CKD-EPI 64(L) >=90 mL/min/1.7 3 m2 12/29/2023 6:09 AM T [facility] Blood BLOOD SPECIMEN / Unknown Lab Venipuncture / Unknown 12/29/2023 4:04 AM CDT 12/29/2023 5:25 AM CDT Mara Stewart MD LAB - CHEMISTRY [facility] Performing Organization Address City/[facility] Co de Phone Number [facility] [address] [place] [address] * (ABNORMAL) HEMOGLOBIN A1C (12/28/2023 1:51 AM CDT) Only the most recent of18 resultswithin the time period is included. Hemoglobin A1c 7.0(H) <5.7 % 12/28/2023 3:11 AM CDT [facility] Estimated Average Glucose 154 mg/dL 12/28/2023 3:11 AM CDT [facility] Blood BLOOD SPECIMEN / Unknown Lab Venipuncture / Unknown 12/28/2023 1:51 AM CDT 12/28/2023 2:58 AM CDT Narrative [facility] - 12/28/2023 3:11 AM CDT HbA1c [...] Standardization Program (NGSP) certified method. Lisa Matthews APRN-FLOORING SALES MANAGER LAB - CH EMISTRY ORDERABLES [facility] [address] [place] [address] * CULTURE BLOOD (12/27/2023 2:15 AM CDT) Only the most recent of8 resultswithin the time period is included. Culture No growth day 5 LYNNE 01/01/2024 8:01 AM CDT [facility] MICROBIOLOGY Blood PERIPHERAL BLOOD / Unknown Lab Venipuncture / Unknown 12/27/2023 2:15 AM CDT 12/27/2023 3:47 AM CDT Jovany LIZ LAB - MICROBIOLOGY ORDERABLES Performing Organization Address City/[facility] Co de Phone Number [facility] MICROBIOLOGY [address] [phone] * CT ABDOMEN PELVIS WO CONTRAST (12/26/2023 [...] Yellow Straw, Yellow 12/26/2023 1:55 PM CDT [facility] Clarity UA Slt Cloudy(A) Clear 12/26/2023 1:55 PM CDT [facility] Glucose UA Negative Negative 12/26/2023 1:55 PM CDT [facility] Bilirubin UA Negative Negative 12/26/2023 1:55 PM CDT [facility] Ketone UA Negative Negative 12/26/2023 1:55 PM CDT [facility] Specific [place] UA 1.010 1.005 - 1.030 12/26/2023 1:55 PM CDT [facility] Blood UA Negative Negative 12/26/2023 1:55 PM CDT [facility] pH UA 6.0 5.0 - 8.0 pH 12/26/2023 1:55 PM CDT [facility] Protein UA 2+(A) Negative 12/26/2023 1:55 PM CDT [facility] Urobilinogen UA Negative Negative mg/dL 12/26/2023 1:55 PM CDT [facility] Nitrite UA Negative Negative 12/26/2023 1:55 PM CDT [facility] Leukocyte UA 2+(A) Negative 12/26/2023 1:55 PM CDT [facility] Urine Microscopy Urine microscopy to follow 12/26/2023 1:55 PM CDT [facility] Urine URINE SPECIMEN OBTAINED BY CLEAN CATCH PROCEDURE / Unknown Collection / Unknown 12/26/2023 1:43 PM CDT 12/26/2023 1:50 PM CDT Narrative [facility] - 12/26/2023 1:55 PM CDT Ascorbic Acid can cause false negative urine strip tests for blood, glucose, nitrite, and bilirubin. Jovany LIZ LAB - URINALYSIS OR DERABLES [facility] [address] [place] [address] * (ABNORMAL) URINE MICROSCOPIC ONLY (12/26/2023 1:43 PM CDT) RBC UA 11-20(A) 0 - 5 # /hpf 12/26/2023 1:59 PM CDT [facility] WBC UA >100(A) 0 - 5 # /hpf 12/26/2023 1:59 PM CDT [facility] Bacteria UA Trace(A) None Seen 12/26/2023 1:59 PM CDT [facility] Squamous Epithelial Cells 3-5 0 - 5 /hpf 12/26/2023 1:59 PM CDT [facility] Urine URINE SPECIMEN OBTAINED BY CLEAN CATCH PROCEDURE / Unknown Collection / Unknown 12/26/2023 1:43 PM CDT 12/26/2023 1:50 PM CDT Narrative [facility] - 12/26/2023 1:59 PM CDT Jovany LIZ LAB - URINALYSIS OR DERABLES [facility] [address] [place] [address] * ID MSR PVR U&/BLADD CAPCTY US NON (12/26/2023 11:17 AM CDT) Narrative Coni Mccord RN - 12/26/2023 11:17 AM CDT Coni Mccord RN ? 12/26/2023 ??1:11 PM Bladder Scan performed on 12/26/2023: Results showing: ??55 mls. Cayla Ramirez DOLL REPAIRER-FLOORING SALES MANAGER PROCEDURE/MINOR SURGICAL ORDERABLES * PATHOLOGY/CYTOLOGY REPORT ORDER [...] Resulting Agency Comment Lab Testing performed at: [address] ??[facility] [phone] Larry Anna MD LAB - THERAPEUTIC DRUG MONITORING ORDERABLES [facility] [address] [place] [address] * (ABNORMAL) URINALYSIS W/MICROSCOPIC NO CULTURE (12/12/2023 5:19 AM CDT) Only the most recent of14 resultswithin the time period is included. Color UA Yellow Straw, Yellow 12/12/2023 5:51 AM [facility] Clarity UA Turbid(A) Clear 12/12/2023 5:51 AM [facility] Specific [place] UA 1.011 1.005 - 1.030 12/12/2023 5:51 AM [facility] pH UA 6.0 5.0 - 8.0 pH 12/12/2023 5:51 AM [facility] Protein UA 2+(A) Negative 12/12/2023 5:51 AM [facility] Glucose UA Negative Negative 12/12/2023 5:51 AM [facility] Ketone UA Negative Negative 12/12/2023 5:51 AM [facility] Bilirubin UA Negative Negative 12/12/2023 5:51 AM [facility] Blood UA Negative Negative 12/12/2023 5:51 AM [facility] Nitrite UA Negative Negative 12/12/2023 5:51 AM [facility] Leukocyte Esterase 3+(A) Negative 12/12/2023 5:51 AM [facility] Urobilinogen UA Negative Negative mg/dL 12/12/2023 5:51 AM [facility] RBC UA 21-50(A) None Seen, 0-2, 3-5 /HPF 12/12/2023 5:51 AM CDT [facility] WBC UA >100(A) None Seen, 0-5 /HPF 12/12/2023 5:51 AM CDT [facility] WBC Clumps Many(A) None /HPF 12/12/2023 5:51 AM CDT [facility] Squamous Epithelial Cells UA None Seen None Seen, 0-2, 3-5 /HPF 12/12/2023 5:51 AM CDT [facility] Urine URINE SPECIMEN OBTAINED BY CLEAN CATCH PROCEDURE / Unknown Collection / Unknown 12/12/2023 5:19 AM CDT 12/12/2023 5:51 AM CDT Narrative [facility] - 12/12/2023 5:51 AM CDT Demetris Johnson MD LAB - URINALYSIS ORD ERABLES [facility] [address] [place] [address], [facility] [phone] * ID MSR PVR U&/BLADD CAPCTY US NON (11/27/2023 2:55 PM CDT) Narrative Redd Zhang MA - 11/27/2023 2:55 PM CDT Redd Zhang MA ? 11/28/2023 ??4:30 PM PVR- 576ml Cayla Ramirez DOLL REPAIRER-FLOORING SALES MANAGER PROCEDURE/MINOR SURGICAL ORDERABLES * EKG 12-LEAD (11/02/2023 [...] (Bezet) 458 ms SLUCARE MUSE Calculated P [place] 60 degrees SL UCARE MUSE Calculated R [place] 58 degrees SL UCARE MUSE Calculated T [place] 44 degrees SL UCARE MUSE Interpretation EKG NORMAL SINUS RHYTHM Poor R wave progression in precordial leads POSSIBLE ANTERIOR INFARCT , AGE UNDETERMINED ABNORMAL ECG WHEN COMPARED WITH ECG OF 17-FEB-2023 19:32, VENT. RATE HAS DECREASED by 6 bpm LEFT BUNDLE BRANCH BLOCK IS NO LONGER PRESENT BORDERLINE CRITERIA FOR ANTERIOR INFARCT ARE NOW PRESENT QT HAS SHORTENED Confirmed by ERICH HUGGINS MD ([id number]) on 12/13/2023 7:23:43 AM [facility] 11/02/2023 3:28 PM CDT 12/13/2023 7:23 AM CDT Erich Huggins MD ECG ORDERABLES [facility] * LAB RESULTS ORDER (10/05/2023) Only the most recent of10 resultswithin the time period is included. 10/05/2023 Narrative 10/05/2023 Ordered by an unspecified provider. Scanned Document LAB - THERAPEUTIC DR NAWAF MONITORING ORDERABLES * VAS BILATERAL VENOUS DUPLEX LE (08/16/2023 1:05 PM YARN BLEACHING MACHINE OPERATOR) Anatomical Region Laterality Modality Lower Extremity Intravascular Ul trasound 08/16/2023 12:4 6 PM YARN BLEACHING MACHINE OPERATOR Narrative Procedure Note Jovany Eller MD - 08/17/2023 Erich Huggins MD VASCULAR LAB ORDERAB LES * FRUCTOSAMINE (07/26/2023 7:42 AM YARN BLEACHING MACHINE OPERATOR) Fructosamine 261 0 - 285 umol/L [facility] Comment: Published reference interval for apparently healthy subjects between age 20 and 60 is 205 - 285 umol/L and in a poorly controlled diabetic population is 228 - 563 umol/L with a mean of 396 umol/L. FASTING Blood BLOOD SPECIMEN / Unknown 07/26/2023 7:42 AM YARN BLEACHING MACHINE OPERATOR 07/26/2023 Narrative Resulting Agency Comment Lab Testing performed at: [facility] [address] ??Critical access hospital [phone] Jen Cesar Eddy SHAFFER-FLOORING SALES MANAGER LAB - CHEMISTR Y ORDERABLES Performing Organization Address City/[facility]/ZIP Co de Phone Number [facility] INSURANCE BILL [address] [place] [address] * MICROALB/CREAT RATIO URINE RANDOM PANEL (04/12/2023 1:25 PM CDT) Only the most recent of4 resultswithin the time period is included. Creatinine Urine 94.8 Not Estab. mg/dL [id number] INSURANCE BILL Microalbumin Urine 5.7 Not Estab. ug/mL [id number] INSURANCE BILL Microalbumin/Crea tinine Ratio 6 0 - 29 mg/g creat [facility] INSURANCE BILL Comment: ?Normal: ?0 - ??29 ?Moderately increased: 30 - 300 ?Severely increased: ? >300 Urine URINE SPECIMEN OBTAINED BY CLEAN CATCH PROCEDURE / Unknown 04/12/2023 1:25 PM CDT 04/12/2023 Narrative Resulting Agency Comment Lab Testing performed at: [employer] [facility] [address] [facility] ??Critical access hospital [phone] Jen YOOFLOORING SALES MANAGER LAB - URINE CH EMISTRY ORDERABLES Performing Organization Address [facility]/ZIP Co de Phone Number [facility] INSURANCE BILL [address] [place] [address] * (ABNORMAL) URINALYSIS MICROSCOPIC ONLY REFLEXED (03/28/2023 [...] Resulting Agency Comment Lab Testing performed at: [employer] [place] [id number] [facility] ??Critical access hospital [phone] Jen Kam DOLL REPAIRER-FLOORING SALES MANAGER LAB - URINALYS IS ORDERABLES [facility] INSURANCE BILL [address] [place] [address] * (ABNORMAL) URINALYSIS W/MICROSCOPIC REFLEX TO CULTURE (03/28/2023 3:23 PM CDT) Only the most recent of3 resultswithin the time period is included. Specific [place] UA 1.012 1.005 - 1.030 [facility] INSURANCE [...] Resulting Agency Comment Lab Testing performed at: [address] ??Critical access hospital [phone] Jen Kam APRN-FLOORING SALES MANAGER LAB - URINALYS IS ORDERABLES [facility] INSURANCE BILL [address] [place] [address] * (ABNORMAL) CULTURE URINE COMPREHENSIVE (03/28/2023 3:23 [...] Agency Comment Lab Testing performed at: [facility] [facility] [address] [facility] [phone] Jen Collierbell DOLL REPAIRER-FLOORING SALES MANAGER LAB - MICROBIO LOGY ORDERABLES [facility] INSURANCE BILL [address] [place] [address] * APHERESIS/TRANSFUSION ORDER (03/19/2023 2:50 PM CDT) [...] 10.5 10? 3 /uL 02/21/2023 8:52 PM [facility] RBC 3.09(L) 3.80 - 5.20 10? 6 /uL 02/21/2023 8:52 PM [facility] Hemoglobin 9.1(L) 12.0 - 15.6 g/dL 02/21/2023 8:52 PM [facility] Hematocrit 27.4(L) 35.0 - 45.0 % 02/21/2023 8:52 PM [facility] MCV 88.7 80.7 - 98.3 fL 02/21/2023 8:52 PM T [facility] MCH 29.4 26.7 - 34.0 pg 02/21/2023 8:52 PM [facility] MCHC 33.2 30.8 - 35.9 g/dL 02/21/2023 8:52 PM [facility] RDW-SD 45.8 36.0 - 50.0 fL 02/21/2023 8:52 PM CDT [facility] RDW-CV 14.4 11.2 - 14.8 % 02/21/2023 8:52 PM CDT [facility] Platelet Count 230 150 - 400 10? 3 /uL 02/21/2023 8:52 PM CDT [facility] MPV 9.7 9.4 - 12.9 fL 02/21/2023 8:52 PM CDT [facility] nRBC Absolute 0.00 0 10? 3 /uL 02/21/2023 8:52 PM CDT [facility] nRBC Auto 0.0 0 /100 WBC 02/21/2023 8:52 PM CDT [facility] Blood BLOOD SPECIMEN / Unknown Lab Venipuncture / Unknown 02/21/2023 8:01 PM CDT 02/21/2023 8:36 PM CDT Allen Dover MD LAB - HEMATOLOGY ORD ERABLES [address] [address], [facility] [phone] * PREPARE (CROSSMATCH) RBC UNIT(S), 6 Units (02/21/2023 1:17 AM CDT) Only the most recent of3 resultswithin the time period is included. Unit Description AS1 LR PRBC [facility] Unit ABO O [facility] Unit [facility]OD [facility] LAB Product Number R02 [facility] Unit Donor # [id number] [facility] Unit Status released [facility] Product Code [id number] [facility] Blood Type Barcode 5100 [facility] Expiration Date S BLOOD BANK LAB Unit Description AS1 LR PRBC [facility] Unit ABO O [facility] Unit POS [facility] Product Number R02 [facility] Unit Donor # [id number] [facility] Unit Status released [facility] Product Code [id number] [facility] Blood Type Barcode 5100 [facility] Expiration Date S BLOOD BANK LAB Unit Description AS1 LR PRBC [facility] Unit ABO O [facility] Unit POS [facility] Product Number R02 [facility] Unit Donor # [id number] [facility] Unit Status released [facility] Product Code [id number] [facility] Blood Type Barcode 5100 [facility] Expiration Date [facility] Unit Description AS1 LR PRBC [facility] Unit ABO O [facility] Unit POS [facility] Product Number R02 [facility] Unit Donor # [id number] [facility] Unit Status released [facility] Product Code [id number] [facility] Blood Type Barcode 5100 [facility] Expiration Date [id number] S BLOOD BANK LAB Unit Description AS1 LR PRBC [facility] Unit ABO O [facility] Unit POS [facility] Product Number R02 [facility] Unit Donor # [id number] [facility] Unit Status released [facility] Product Code [id number] [facility] Blood Type Barcode 5100 [facility] Expiration Date [id number] [facility]OD [facility] Unit Description -1 LR PRBC LV [facility] Unit ABO O [facility] Unit POS [facility] Product Number R52 [facility] Unit Donor # [id number] [facility] Unit Status released [facility] Product Code [id number] [facility] Blood Type Barcode 5100 [facility] Expiration Date [id number] [facility] B[facility]OD [facility] LAB Blood Bank BLOOD SPECIMEN / Unknown 02/17/2023 7:28 PM CDT Allen Dover MD LAB - BLOOD BANK ORD ERABLES [facility] [address] [place] [address], [facility] [phone] * PHOSPHORUS BLOOD (02/20/2023 1:05 AM CDT) Only the most recent of19 resultswithin the time period is included. Phosphorus 3.6 2.9 - 5.1 mg/dL 02/20/2023 2:06 AM CDT [facility] Blood BLOOD SPECIMEN / Unknown Lab Venipuncture / Unknown 02/20/2023 1:05 AM CDT 02/20/2023 1:29 AM CDT Mckenzie Ferrera DOLL REPAIRER-FLOORING SALES MANAGER LAB - CHEMISTRY O RDERABLES [address] [address], [facility] [phone] * MAGNESIUM BLOOD (02/20/2023 1:05 AM CDT) Only the most recent of33 resultswithin the time period is included. 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 Unit Description Thawed Plasma 5D [facility] Unit ABO A [facility] Unit Rh NEG [facility] Product Number [id number] [facility] Unit Donor # [id number] [facility] Unit Status released [facility] Product Code [id number] [facility] Blood Type Barcode 0600 [facility] Expiration Date [id number] [facility] Unit Description Thawed Plasma 5D [facility] Unit ABO A [facility] Unit NEG [facility] Product Number [id number] [facility] Unit Donor # [id number] [facility] Unit Status released [facility] Product Code [id number] [facility] Blood Type Barcode 0600 [facility] Expiration Date [id number] [facility] Unit Description Thawed Plasma 5D [facility] Unit ABO A [facility] Unit NEG [facility] Product Number [id number] [facility] Unit Donor # [id number] [facility] Unit Status released [facility] Product Code [id number] [facility] Blood Type Barcode 0600 [facility] Expiration Date [id number] [facility] Unit Description Thawed Plasma 5D [facility] Unit ABO AB [facility] Unit POS [facility] Product Number [id number] [facility] Unit Donor # [id number] [facility] Unit Status released [facility] Product Code [id number] [facility] Blood Type Barcode 8400 [facility] Expiration Date [id number] [facility] Unit Description Thawed Plasma 5D [facility] Unit ABO AB [facility] Unit NEG [facility] Product Number [id number] [facility] Unit Donor # [id number] [facility] Unit Status released [facility] Product Code [id number] [facility] Blood Type Barcode 2800 [facility] Expiration Date [id number] [facility] Unit Description Thawed Plasma 5D [facility] Unit ABO AB [facility] Unit POS [facility] Product Number [id number] [facility] Unit Donor # [id number] [facility] Unit Status released [facility] Product Code [id number] [facility] Blood Type Barcode 8400 [facility] Expiration Date [id number] [facility]OD [facility] Blood Bank BLOOD SPECIMEN / Unknown 02/17/2023 7:28 PM CDT Allen Dover MD LAB - BLOOD BANK ORD ERABLES [facility] [address] [place] [address], [facility] [phone] * (ABNORMAL) BLOOD GAS+COOX+LYTES+METAB ARTERIAL POCT (02/17/2023 10:25 PM CDT) Only the most recent of2 resultswithin the time period is included. pH Arterial 7.35 7.35 - 7.45 pH 02/17/2023 10:25 PM [facility] pO2 Arterial 233(H) 80 - 100 mmHg 02/17/2023 10:25 PM [facility] pCO2 Arterial 42 35 - 45 mmHg 10:25 PM [facility] HCO3 Arterial 23.2 20.0 - 30.0 mmol/L 02/17/2023 10:25 PM [facility] BE Arterial -2.3(L) -2.0 - 2.0 mmol/L 02/17/2023 10:25 PM [facility] Oxyhemoglobin Arterial 97.7 % 02/17/2023 10:25 PM [facility] Dexoyhemoglobin (HHB) % <1.0 % 02/17/2023 10:25 PM [facility] Methemoglobin 0.8 0.0 - 2.0 % 02/17/2023 10:25 PM [facility] Carboxyhemoglobin 0.6 0.0 - 2.0 % 2022 10:25 PM [facility] Comment:Carboxyhemoglobin No rmal Concentration: Non-smokers: 0-2%; Smokers: 0- 9%; Toxic: >20% O2 Content Arterial 12.4 Interpret within clinical context ml/dL 02/17/2023 10:25 PM [facility] Hemoglobin by COOX 8.6(L) 12.0 - 15.6 g/dL 02/17/2023 10:25 PM CDT [facility] O2 Saturation Arterial 99 90 - 100 % 02/17/2023 10:25 PM CDT [facility] Sodium Whole Blood 138 135 - 145 mmol/L 02/17/2023 10:25 PM T [facility] Potassium Whole Blood 4.1 3.5 - 5.5 mmol/L 02/17/2023 10:25 PM CDT [facility] Chloride WB 106 78 - 107 mmol/L 02/17/2023 10:25 PM CDT [facility] Calcium Ionized 1.26 mmol/L 10:25 PM T [facility] Ionized Calcium pH Adjusted 1.23 1.19 - 1.34 mmol/L 02/17/2023 10:25 PM T [facility] Anion Gap (AG) Arterial 13 8 - 18 mmol/L 02/17/2023 10:25 PM T [facility] Glucose WB 169(H) 70 - 115 mg/dL 02/17/2023 10:25 PM T [facility] Lactic Acid Whole Blood 1.9 <=2.0 mmol/L 02/17/2023 10:25 PM [facility] Blood, arterial ARTERIAL BLOOD SPECIMEN / Unknown 02/17/2023 10:25 PM CDT 02/17/2023 10:26 PM CDT Allen Dover MD LAB - POINT OF CARE ORDERABLES [facility] [address] [place] [address], [facility] [phone] * PREPARE PLATELET PHERESIS UNIT(S), 1 Units (02/17/2023 10:23 PM CDT) Only the most recent of2 resultswithin the time period is included. Unit Description LR PLT Phere B7 [facility] Unit ABO A [facility] Unit Rh POS [facility] Product Number [id number] [facility] Unit Donor # [id number] [facility] Unit Status released [facility] Product Code [id number] [facility] Blood Type Barcode 9440 [facility] Expiration Date [id number] S BLOOD BANK LAB Blood Bank BLOOD SPECIMEN / Unknown 02/17/2023 7:28 PM CDT Allen Dover MD LAB - BLOOD BANK ORD ERABLES [facility] [address] [place] [address], [facility] [phone] * CENTRAL LINE PERFORMABLE (02/17/2023 10:12 PM [...] Event Date/Time: ??02/17/2023 9:17 PM Procedure: intubation (25186). Procedure Section: ?? Sedation: under general anesthesia. [...] Note Patient Location: OR. Procedure: Arterial Line (49023). Procedure Section ?? Indications: continuous blood pressure [...] ??No Staff Section ? Anesthesia Provider: Lupe Puentes MD, Performed the procedure John May MD GENERAL ANESTHESI A ORDERABLES * TRANSFUSE RED BLOOD CELL LEUKOREDUCED UNIT(S) (02/17/2023 9:58 PM CDT) John May MD NURSING - BLOOD P GINA TRANSFUSION * BLOOD GAS ART+LYTES+METAB+COOX POC NOTIF (02/17/2023 9:47 PM CDT) Comment Notification Label Only - See Separate Report 02/17/2023 11:00 PM CDT [facility] Other MISCELLANEOUS SAMPLES / Unknown 02/17/2023 9:47 PM CDT 02/17/2023 9:50 PM CDT John May MD LAB - BLOOD GASES ORDERABLES Performing Organization Address [facility] Co de Phone Number [address] [address], [facility] [phone] * TEG 6 GLOBAL HEMOSTASIS W/ LYSIS (02/17/2023 7:21 PM CDT) Citrated Kaolin R (Reaction Time) 5.5 4.6 - 9.1 min 02/17/2023 8:42 PM CDT [facility] Citrated Kaolin LY30 (Lysis) 0.7 0.0 - 2.6 % 02/17/2023 8:42 PM CDT [facility] Citrated Functional Fibrinogen MA (Max Amplitude) 21.9 15.0 - 32.0 mm 02/17/2023 8:42 PM CDT [facility] Citrated RapidTEG MA (Max Amplitude) 65.3 52.0 - 70.0 mm 02/17/2023 8:42 PM CDT [facility] Blood BLOOD SPECIMEN / Unknown Venipuncture / Unknown 02/17/2023 7:21 PM CDT 02/17/2023 7:29 PM CDT Allen Dover MD LAB - HEMATOLOGY ORD ERABLES [facility] [address] [place] [address], [facility] [phone] * (ABNORMAL) TEG 6S PLATELET MAPPING (02/17/2023 7:21 PM CDT) TEGPLM (Max Amplitude) Koalin 66.1 53.0 - 68.0 mm 02/17/2023 8:25 PM CDT [facility] TEGPLM (Max Amplitude) ACTF 11.9 2.0 - 19.0 mm 02/17/2023 8:25 PM T [facility] TEGPLM (Max Amplitude) ADP 12.8(L) 45.0 - 69.0 mm 02/17/2023 8:25 PM [facility] Comment:ADP MA below normal range. Inhibition present. TEGPLM (Max Amplitude) AA 16.0(L) 51.0 - 71.0 mm 02/17/2023 8:25 PM T [facility] Comment:AA MA below normal r schuyler. Inhibition present. TEGPLM %Inhibition ADP 98.3(H) 0.0 - 17.0 % 02/17/2023 8:25 PM CDT [facility] TEGPLM %Inhibition AA 92.4(H) 0.0 - 11.0 % 02/17/2023 8:25 PM T [facility] TEGPLM %Aggregation ADP 1.7(L) 83.0 - 100.0 % 02/17/2023 8:25 PM T [facility] TEGPLM % Aggregation AA 7.6(L) 89.0 - 100.0 % 02/17/2023 8:25 PM T [facility] Blood BLOOD SPECIMEN / Unknown Venipuncture / Unknown 02/17/2023 7:21 PM CDT 02/17/2023 7:29 PM CDT Allen Dover MD LAB - HEMATOLOGY ORD ERABLES [facility] [address] [place] [address], [facility] [phone] * PTT [facility] (02/17/2023 7:21 PM CDT) Only the most recent of5 resultswithin the time period is included. [facility] APTT 27.2 23.0 - 38.4 Seconds 02/17/2023 7:48 PM [facility] Comment:Suggested therapeuti c range for full dose I.V. unfractionated heparin therapy for venous thromboembolism is 71 to 109 seconds. Blood BLOOD SPECIMEN / Unknown Venipuncture / Unknown 02/17/2023 7:21 PM CDT 02/17/2023 7:26 PM CDT Allen Dover MD LAB - COAGULATION OR DERABLES [facility] [address] [place] [address], [facility] [phone] * (ABNORMAL) DIFFERENTIAL MANUAL (02/17/2023 7:21 PM CDT) Only the most recent of3 resultswithin the time period is included. [facility] WBC (corrected for NRBC) 33.4 10? 3 /uL 02/17/2023 9:06 PM [facility] Total Cell Count 100 02/18/20 23 9:06 PM [facility] Neutrophils Absolute Manual 30.06(H) 1.60 - 7.00 10? 3 /uL 02/17/2023 9:06 PM [facility] Comment:(BANDS+SEGS) x WBC = NEUT # (ANC) Lymphocyte Absolute Manual 2.67 1.10 - 3.90 10? 3 /uL 02/17/2023 9:06 PM [facility] Monocytes Absolute Manual 0.67 0.26 - 1.07 10? 3 /uL 02/17/2023 9:06 PM [facility] Band % Manual 2 0 - 10 % 02/17/2023 9:06 PM [facility] Neutrophil % Manual 88(H) 35 - 70 % 02/17/2023 9:06 PM [facility] Lymphocyte % Manual 8(L) 20 - 43 % 02/17/2023 9:06 PM CDT [facility] Monocytes % Manual 2(L) 5 - 13 % 02/17/2023 9:06 PM [facility] Platelet Estimate Adequate Adequate 02/17/2023 9:06 PM [facility] Anisocytosis 1+(A) None 02/17/2023 9:06 PM [facility] Schistocytes Rare(A) None 02/17/2023 9:06 PM [facility] Ovalocytes Occasional( A) None 02/17/2023 9:06 PM T [facility] Large Platelet Count Occasional( A) None 02/17/2023 9:06 PM [facility] Comment Platelet Platelet clumped on the smear but appear adequate. 02/17/2023 9:06 PM [facility] Blood BLOOD SPECIMEN / Unknown Venipuncture / Unknown 02/17/2023 7:21 PM CDT 02/17/2023 7:26 PM CDT Allen Dover MD LAB - HEMATOLOGY ORD [place] [address] [address], [place] [phone] * (ABNORMAL) CK BLOOD (02/17/2023 7:21 PM CDT) Only the most recent of4 resultswithin the time period is included. CK Total 251(H) 30 - 200 U/L 02/17/2023 7:53 PM T [facility] Blood BLOOD SPECIMEN / Unknown Venipuncture / Unknown 02/17/2023 7:21 PM CDT 02/17/2023 7:26 PM CDT Allen Dover MD LAB - CHEMISTRY ORDE [place]LE[place] [address] [address], [place] [phone] * PROC EKG IN CLINIC (11/17/2022) Only the most recent of2 resultswithin the time period is included. Narrative Jen Kam, DOLL REPAIRER-FLOORING SALES MANAGER - 11/17/2022 No acute changes No change in ekg from August 2022 Jen Cesar Eddy DOLL REPAIRER-FLOORING SALES MANAGER ECG ORDERABLES * ID MSR PVR U&/BLADD PRATIBHA US NON (08/31/2022 9:53 AM YARN BLEACHING MACHINE OPERATOR) Narrative Stephanie Lott - 08/31/2022 9:53 AM YARN BLEACHING MACHINE OPERATOR Stephanie Lott ? 08/31/2022 ??9:59 AM PVR = ??15 mL ? Lana Rdz DOLL REPAIRER-FLOORING SALES MANAGER PROCEDURE/MIN OR SURGICAL ORDERABLES * CARDIAC EKG ORDER (08/30/2022 9:01 AM YARN BLEACHING MACHINE OPERATOR) Only the most recent of7 resultswithin the time period is included. Narrative 08/30/2022 9:[address] [facility] Ordered by an unspecified provider. Scanned Document CARDIAC SERVICES ORD ERABLES * (ABNORMAL) BLOOD GASES ART + COOX PANEL (08/23/2022 12:01 AM YARN BLEACHING MACHINE OPERATOR) Only the most recent of7 resultswithin the time period is included. pH Arterial 7.42 7.35 - 7.45 pH 08/23/2022 12:11 AM [facility] pO2 Arterial 109(H) 80 - 100 mmHg 08/23/2022 12:11 AM [facility] pCO2 Arterial 38 35 - 45 mmHg 3 12:11 AM [facility] HCO3 Arterial 25 20 - 30 mmol/l 08/23/2022 12:11 AM [facility] BE Arterial 0.2 -2.0 - 2.0 mmol/L 08/23/2022 12:11 AM [facility] Oxyhemoglobin Arterial 97.4 % 08/23/2022 12:11 AM [facility] Dexoyhemoglobin (HHB) % 0.5 % 08/23/2022 12:11 AM [facility] Methemoglobin <0.8 0.0 - 2.0 % 08/23/2022 12:11 AM [facility] Carboxyhemoglobin 1.6 0.0 - 2.0 % 2022 12:11 AM [facility] O2 Content Arterial 13.9 Interpret within clinical context ml/dL 08/23/2022 12:11 AM [facility] Hemoglobin by COOX 10.0(L) 12.0 - 15.6 g/dL 08/23/2022 12:11 AM [facility] O2 Saturation Arterial 100 90 - 100 % 08/23/2022 12:11 AM [facility] FI O2 Arterial 28.0 % 08/23/2022 12:11 AM [facility] Blood, arterial ARTERIAL BLOOD SPECIMEN / Unknown Line Draw / Unknown 08/23/2022 12:01 AM YARN BLEACHING MACHINE OPERATOR 08/23/2022 12:09 AM [facility] - 08/23/2022 12:[address] [facility] Carboxyhemoglobin Normal Concentration: Non-smokers: 0-2%; Smokers: 0-9%; Toxic: >20% Yudith Rodriguez MD LAB - BLOOD GASES O RDERABLES [address] [address], [facility] [phone] * XR ABDOMEN KUB PORTABLE (08/22/2022 12:23 PM YARN BLEACHING MACHINE OPERATOR) Only the most recent of5 resultswithin the time period is included. Anatomical Region Laterality Modality Abdomen Radiographic Natasha ging 08/22/2022 12:4 5 PM YARN BLEACHING MACHINE OPERATOR Impressions 08/22/2022 12:52 PM YARN BLEACHING MACHINE OPERATOR IMPRESSION: There is overall paucity of bowel gas. There is instrumented fixation of the lower lumbar spine. A Forrest catheter is present. Cholecystectomy clips are present. > Interpreting Provider: Betito Han MD on 08/22/2022 12:52 PM Narrative 08/22/2022 12:52 PM YARN BLEACHING MACHINE OPERATOR PROCEDURE: ??XR ABDOMEN KUB PORTABLE, DATE/TIME OF EXAM: ??08/22/2022 12:24 PM, LOCATION ??[facility] INDICATION: I65.21: Carotid stenosis, right ADDITIONAL CLINICAL INFORMATION: Ordering Provider Reason For Exam: ??rule out sbo COMPARISON: 08/20/2022. Procedure Note Betito Han MD - 08/22/2022 PROCEDURE: XR ABDOMEN KUB PORTABLE, DATE/TIME OF EXAM: 08/22/2022 12:24 PM, LOCATION [facility] INDICATION: I65.21: Carotid stenosis, right ADDITIONAL CLINICAL [...] IMAGING ORDERABLES * ACT LR - POCT ([facility]) (08/18/2022 2:41 PM YARN BLEACHING MACHINE OPERATOR) ACT LR 364 See result comments sec 08/18/2022 3:08 PM YARN BLEACHING MACHINE OPERATOR [facility] Blood BLOOD SPECIMEN / Unknown 08/18/2022 2:41 PM YARN BLEACHING MACHINE OPERATOR 08/18/2022 3:08 PM YARN BLEACHING MACHINE OPERATOR Narrative [facility] - 08/18/2022 3:08 PM YARN BLEACHING MACHINE OPERATOR ACT-LR [employer] ranges are: Cardiac medical laboratory technical officer = 200-300 seconds Sheath pull = ACT [...] Rodriguez MD LAB - COAGULATION O RDERABLES [facility] [address] [place] [address], [place] [phone] * PATHOLOGY TISSUE (08/18/2022 1:29 PM YARN BLEACHING MACHINE OPERATOR) Only the most recent of3 resultswithin the time period is included. Case Report Surgical Pathology Report ? Case: [id number] ? Authorizing Provider: ??Yudith Rodriguez MD ? Collected: ? 08/18/2022 01:29 PM ? Ordering Location: ? [facility] ?Received: ?08/18/2022 03:27 PM ? Pathologist: ? Julissa Ferreira MD ? Specimens: ?? A) - Neck, RIGHT NECK LYMPH NODE ? B) - Carotid Artery, RIGHT NECK CAROTID PLAQUE ? 08/23/2022 1:29 PM YARN BLEACHING MACHINE OPERATOR [facility] Final Diagnosis Lymph node, right neck, excision (A): - No histopathologic abnormality (1 node) Artery, right carotid, plaque, endarterectomy (B): - Calcified plaque 08/23/2022 1:29 PM [facility] Microscopic Description and Comment Microscopic examination substantiates the final diagnosis. 08/23/2022 1:29 PM [facility] Clinical History The patient is a 67-year-old woman who presented with right carotid artery stenosis. Operative procedure: Right carotid endarterectomy with cerebral oximetry. 08/23/2022 1:29 PM [facility] Gross Description The requisition and specimen (s) are identified with the patient's name, Ivonne Vera. Received in formalin, specimen A , is a 0.8 x 0.6 x 0.3 cm pink-johnson potential lymph node, bisected and entirely submitted in cassette A1. Received in formalin, specimen B consists of a 2.3 x 0.6 x 0.4 cm yellow-johnson, calcified plaque. Diamond Wheel Molder section is submitted in cassette B1 after period of decalcification. AR 08/23/2022 1:29 PM [facility] Disclaimer The performance characteristics of all immunohistochemical and indirect immunofluorescence stains (if any) cited in this report were determined by the Histopathology Laboratory of [facility]. Some of these tests were developed by [...] the attending (teaching) pathologist. 08/23/2022 1:29 PM [facility] Embedded Images 08/23/2022 1:29 PM [facility] Resection without Tumor ENTIRE NECK / Unknown 08/18/2022 1:29 PM YARN BLEACHING MACHINE OPERATOR 08/18/2022 3:27 PM YARN BLEACHING MACHINE OPERATOR Comment:Pre-op diagnosis: CAROTID STENOSIS Resection without Tumor CAROTID ARTERY STRUCTURE / Unknown 08/18/2022 2:44 PM YARN BLEACHING MACHINE OPERATOR 08/18/2022 3:27 PM YARN BLEACHING MACHINE OPERATOR Comment:Pre-op diagnosis: CAROTID STENOSIS Yudith Rodriguez MD LAB - PATHOLOGY/CYT OLOGY ORDERABLES [facility] [address] [facility] [place] [address], [facility] [phone] * ETT LINE PERFORMABLE (08/18/2022 12:56 PM YARN BLEACHING MACHINE OPERATOR) Narrative Anisha الرعاقي Anes Asst - 08/18/2022 12:56 PM YARN BLEACHING MACHINE OPERATOR Anisha العراقي Anes Asst ? 08/18/2022 ??1:34 PM Endotracheal Tube Placement: ? Patient Location: OR. Intubation Event Date/Time: ??08/18/2022 12:56 PM Procedure: intubation (67931). Procedure Section: ?? Sedation: under general anesthesia. [...] * POTASSIUM WHOLE BLD (08/18/2022 9:13 AM YARN BLEACHING MACHINE OPERATOR) Potassium Whole Blood 4.0 3.5 - 5.5 mmol/L 08/18/2022 9:22 AM YARN BLEACHING MACHINE OPERATOR [facility] Blood WHOLE BLOOD SPECIMEN / Unknown Venipuncture / Unknown 08/18/2022 9:13 AM YARN BLEACHING MACHINE OPERATOR 08/18/2022 9:19 AM YARN BLEACHING MACHINE OPERATOR Yudith Rodriguez MD LAB - CHEMISTRY ORD ERABLES [facility] [address] [place] [address], [facility] [phone] * ECHO STRESS W DOBUTAMINE (07/13/2022 9:57 AM YARN BLEACHING MACHINE OPERATOR) Only the most recent of2 resultswithin the time period is included. Anatomical Region Laterality Modality Chest Echo 07/13/2022 8:21 AM YARN BLEACHING MACHINE OPERATOR Narrative Procedure Note Erich Huggins MD - 07/13/2022 Erich Huggins MD ECHOCARDIOGRAPHY RAD IANT * HEMOGLOBIN A1C - POINT OF CARE (AMB) [facility] (06/15/2022) Only the most recent of9 resultswithin the time period is included. Hemoglobin A1c POCT 6.5 % BLOOD SPECIMEN / Unknown 06/15/2022 Jen Kam DOLL REPAIRER-FLOORING SALES MANAGER LAB - POINT OF CARE ORDERABLES * [...] 0.014 <0.032 ng/mL 04/12/2022 2:20 PM CDT [facility] Blood BLOOD SPECIMEN / Unknown Venipuncture / Unknown 04/12/2022 1:38 PM CDT 04/12/2022 1:44 PM CDT Erich Diaz MD LAB - CHEMISTRY [facility] Organization Address City/State/ZIP Co de Phone Number [facility] [address] [place] [address], [facility] [phone] * MRI BRAIN WO CONTRAST (04/12/2022 11:50 [...] DATE/TIME OF EXAM: ??04/12/2022 11:50 AM, LOCATION ??[facility] INDICATION: R29.810: Facial droop ADDITIONAL CLINICAL INFORMATION: [...] CONTRAST, DATE/TIME OF EXAM: 04/12/2022 11:50AM, LOCATION [facility] INDICATION: R29.810: Facial droop ADDITIONAL CLINICAL INFORMATION: [...] DATE/TIME OF EXAM: ??04/12/2022 9:56 AM, LOCATION ??[facility] INDICATION: R29.810: Facial droop ADDITIONAL CLINICAL INFORMATION: [...] STROKE, DATE/TIME OF EXAM: 29:56 AM, LOCATION [facility] INDICATION: R29.810: Facial droop ADDITIONAL CLINICAL INFORMATION: [...] - 1.30 mg/dL 04/13/2022 10:05 AM CDT [facility] eGFR 54(L) >90 mL/min/1.7 3 m2 04/13/2022 10:05 AM CDT [facility] Blood BLOOD SPECIMEN / Unknown 04/12/2022 9:42 AM CDT 04/13/2022 10:05 AM CDT Erich Diaz MD LAB - POINT OF CARE ORDERABLES [address] [address], [facility] [phone] * INR WHOLE BLOOD - POINT OF CARE (IP) STROKE (04/12/2022 9:41 AM CDT) INR 1.2 0.9 - 1.2 04/13/2022 10:05 AM CDT [facility] Device [id number] 04/13/2022 10:05 AM T [facility] Child Development Consultant ID [id number] 04/13/2022 10:05 AM CDT [facility] Blood BLOOD SPECIMEN / Unknown 04/12/2022 9:41 AM CDT 04/13/2022 10:05 AM CDT Erich Diaz MD LAB - POINT OF CARE ORDERABLES [address] [address], [place] [phone] * CT BRAIN - Stroke (04/12/2022 9:36 [...] DATE/TIME OF EXAM: ??04/12/2022 9:36 AM, LOCATION ??[facility] INDICATION: Code Stroke. Left facial droop. ADDITIONAL [...] DATE/TIME OF EXAM: 04/12/2022 9:36 AM, LOCATION [facility] INDICATION: Code Stroke. Left facial droop. ADDITIONAL [...] ORDERABLES * BONE DENSITY AXIAL SKELETON(1OR MORE SITES)[id number] (02/09/2022 8:20 AM CDT) Anatomical Region Laterality Modality Other 02/09/2022 4:19 PM CDT Narrative 02/09/2022 4:48 PM CDT Examination: Dual energy x-ray absorptiometry of the left hip. Clinical Indication: E28.39: Ovarian failure Technique: Detailed data from the exam is sent separately to the ordering physician and is also available on [email or web address], the Radiology Department's computerized picture archive system. [...] theordering physician and is also available on [email or web address], the Radiology Department's computerized picture archive system. [...] D.O. on02/09/2022 4:48 PM . Jen Kam DOLL REPAIRER-FLOORING SALES MANAGER DEXA ORDERABLE S * MAMMO BILAT SCREENING [...] BENIGN. Report dictated by Ronny Braxton MD (microarray operations vice president) Zeferino Molina MD (resident) assisted in [...] most recent dated 09/15/2020 and 07/30/2019 from [facility]. TECHNIQUE: ??Tomosynthesis (3-D) and reconstructed synthetic [...] significant change from the prior. Jen Kam DOLL REPAIRER-FLOORING SALES MANAGER MAMMO ORDERABL ES * ID REMOTE 30 DAY ECG REV/REPORT (01/15/2022 10:38 [...] * VITAMIN D 25-HYDROXY (09/20/2021 10:34 AM YARN BLEACHING MACHINE OPERATOR) Only the most recent of6 resultswithin the time period is included. Vitamin D, 25 Hydroxy 33.0 30.0 - 80.0 ng/mL 09/20/2021 12:12 PM YARN BLEACHING MACHINE OPERATOR [facility] Comment: The recommendations for 25-Hydroxy Vitamin D [...] Lab Venipuncture / Unknown 09/20/2021 10:34 AM YARN BLEACHING MACHINE OPERATOR 09/20/2021 11:[address] [facility] Shabana Eubanks DO LAB - CHEMISTRY [facility] [address] [place] [address], [facility] [phone] * FOLATE (09/20/2021 10:34 AM YARN BLEACHING MACHINE OPERATOR) Only the most recent of5 resultswithin the time period is included. Folate 8.4 7.0 - 31.4 ng/mL 09/20/2021 12:12 PM [facility] Blood BLOOD SPECIMEN / Unknown Lab Venipuncture / Unknown 09/20/2021 10:34 AM YARN BLEACHING MACHINE OPERATOR 09/20/2021 11:07 AM YARN BLEACHING MACHINE OPERATOR Shabana Eubanks DO LAB - CHEMISTRY ORDE SELENA Performing Organization Address City/[facility]/ZIP Co de Phone Number [facility] [address] [place] [address], [facility] [phone] * VITAMIN B12 (09/20/2021 10:34 AM YARN BLEACHING MACHINE OPERATOR) Only the most recent of5 resultswithin the time period is included. Vitamin B12 295 213 - 816 pg/mL 09/20/2021 12:12 PM [facility] Blood BLOOD SPECIMEN / Unknown Lab Venipuncture / Unknown 09/20/2021 10:34 AM YARN BLEACHING MACHINE OPERATOR 09/20/2021 11:07 AM YARN BLEACHING MACHINE OPERATOR Shabana I Cha MARTINEZ LAB - CHEMISTRY ORDRosmery WALTERS Performing Organization Address [facility]/ZIP Co de Phone Number [facility] [address] [place] [address], [place] [phone] * (ABNORMAL) LIPID PROFILE (09/20/2021 10:34 AM YARN BLEACHING MACHINE OPERATOR) Only the most recent of19 resultswithin the time period is included. Cholesterol Total 138 <200 mg/dL 09/20/2021 11:41 AM [facility] HDL 49 >40 mg/dL 09/20/2021 11:41 AM [facility] Comment: ATP III Classification of HDL Cholesterol: ? <40 mg/dL: ??Considered a major risk factor. ? >60 mg/dL: ??Considered a negative risk factor. ? LDL Calculated 57 <100 mg/dL 09/20/2021 11:41 AM [facility] Comment: ATP III Classification of LDL Cholesterol: ?<100 mg/dL: ??Optimal ? 100 - 129 mg/dL: ??Near Optimal/Above Optimal ? 130 - 159 mg/dL: ??Borderline High ? 160 - 189 mg/dL: ??High ?>190 mg/dL: ??Very High ? Triglycerides 162(H) <150 mg/dL 09/20/2021 11:41 AM YARN BLEACHING MACHINE OPERATOR [facility] Comment: ATP III Classification of Triglycerides: ?<150 mg/dL: ??Normal ? 150 - 199 mg/dL: ??Borderline High ? 200 - 400 mg/dL: ??High ?>500 mg/dL: ??Very High Blood BLOOD SPECIMEN / Unknown Lab Venipuncture / Unknown 09/20/2021 10:34 AM YARN BLEACHING MACHINE OPERATOR 09/20/2021 11:07 AM YARN BLEACHING MACHINE OPERATOR Shabana Eubanks DO LAB - CHEMISTRY [facility] [address] [place] [address], [facility] [phone] * ID MSR PVR U&/BLADD CAPCTY US NON (08/18/2021 10:28 AM YARN BLEACHING MACHINE OPERATOR) Narrative Stephanie Lott - 08/18/2021 10:28 AM YARN BLEACHING MACHINE OPERATOR Stephanie Lott ? 08/18/2021 10:29 AM PVR = 0 mL Lana Rdz DOLL REPAIRER-FLOORING SALES MANAGER PROCEDURE/MIN OR SURGICAL ORDERABLES * CT ABDOMEN PELVIS W CONTRAST (07/04/2021 8:06 PM YARN BLEACHING MACHINE OPERATOR) Only the most recent of3 resultswithin the time period is included. Anatomical Region Laterality Modality Abdomen, Pelvis Computed Tomogra phy 07/05/2021 8:03 AM YARN BLEACHING MACHINE OPERATOR Impressions 07/05/2021 8:17 AM YARN BLEACHING MACHINE OPERATOR Impression: No acute process in the abdomen or pelvis. Unchanged nonobstructive 2 mm left kidney calculus . Report drafted by Josias Segal (resident) Dr. THUY Stevenson, MD, [facility] have personally reviewed and interpreted this examination/study. This report was electronically signed by THUY FROST MD, CHETAN ??on 07/05/2021 8:17 AM . 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 Rashaun Allred MD LAB - CHEMISTRY [facility] Performing Organization Address City/[facility]/ZIP Co de Phone Number [address] [address], [facility] [phone] * TSH REFLEX FREE T4 (06/04/2021 5:25 AM CDT) Only the most recent of3 resultswithin the time period is included. TSH 1.256 0.350 - 4.940 uIU/mL 06/04/2021 7:13 AM CDT [facility] Blood BLOOD SPECIMEN / Unknown Lab Venipuncture / Unknown 06/04/2021 5:25 AM CDT 06/04/2021 6:28 AM CDT Neelima Eng PA-C LAB - CHEMISTRY [place]AN [place] [address] [address], [place] [phone] * ALBUMIN BLOOD (06/03/2021 5:41 AM CDT) Albumin 3.4 3.4 - 5.0 g/dL 06/03/2021 7:38 AM CDT [facility] Blood BLOOD SPECIMEN / Unknown Lab Venipuncture / Unknown 06/03/2021 5:41 AM CDT 06/03/2021 6:05 AM CDT Neelima Eng PA-C LAB - CHEMISTRY ORD ERABLES Performing Organization Address City/[facility]/ZIP Co de Phone Number [address] [address], [place] [phone] * OSMOLALITY URINE (06/01/2021 11:41 AM CDT) Osmolality Urine 411 50-1,200 mOsm/kg 06/01/2021 1:02 PM CDT [facility] Urine URINE SPECIMEN OBTAINED BY CLEAN CATCH PROCEDURE / Unknown Collection / Unknown 06/01/2021 11:41 AM CDT 06/01/2021 11:48 AM CDT Dionte GONZALEZ LAB - URINE CHEM ISTRY ORDERABLES Performing Organization Address City/[facility]/ZIP Co de Phone Number [address] [address], [facility] [phone] * SODIUM URINE RANDOM (05/31/2021 8:36 AM CDT) Only the most recent of2 resultswithin the time period is included. Sodium Urine 84 Not Established mmol/L 05/31/2021 9:26 AM CDT [facility] Urine URINE SPECIMEN OBTAINED BY CLEAN CATCH PROCEDURE / Unknown Collection / Unknown 05/31/2021 8:36 AM CDT 05/31/2021 8:48 AM CDT Nicole Zepeda MD LAB - URINE ORTHOTIC FINISH GRINDING TECHNICIAN RY ORDERABLES [facility] [address] [place] [address], [facility] [phone] * CREATININE URINE RANDOM (05/31/2021 8:36 AM CDT) Only the most recent of3 resultswithin the time period is included. Creatinine Urine 112 Not Established mg/dL 05/31/2021 9:26 AM CDT [facility] Urine URINE SPECIMEN OBTAINED BY CLEAN CATCH PROCEDURE / Unknown Collection / Unknown 05/31/2021 8:36 AM CDT 05/31/2021 8:48 AM CDT Nicole Zepeda MD LAB - URINE ORTHOTIC FINISH GRINDING TECHNICIAN RY ORDERABLES Performing Organization Address City/[facility] Co de Phone Number [address] [address], [facility] [phone] * Vascular Ultrasound (05/31/2021 3:38 AM CDT) [...] TOXIN A+B (05/14/2021 12:01 PM CDT) Pathologist [facility] GDH Antigen Negative Negative, Invalid 05/14/2021 7:10 PM CDT [facility] MICROBIOLOGY C difficile Toxin A + B Negative Negative, Invalid 05/14/2021 7:10 PM CDT [facility] MICROBIOLOGY Interpretation C difficile Negative for toxigenic C. difficile Negative for toxigenic C. difficile 05/14/2021 7:10 PM CDT [facility] MICROBIOLOGY Stool STOOL SPECIMEN / Unknown Collection / Unknown 05/14/2021 12:01 PM CDT 05/14/2021 12:09 PM CDT Aura Foote DO LAB - MICROBIOLOGY O RDERABLES [facility] MICROBIOLOGY [address] [place] [address], [facility] [phone] * HIV-1 HIV-2 ANTIBODY + HIV P24 AG PANEL (05/12/2021 3:38 PM CDT) HIV Antigen/Antibod y 1 & 2 Non-reacti ve Non-react fortino 05/12/2021 6:10 PM CDT [facility] Comment:Neither HIV-1 p24 An tigen nor HIV-1/HIV-2 Antibodies are detected. Blood BLOOD SPECIMEN / Unknown Lab Venipuncture / Unknown 05/12/2021 3:38 PM CDT 05/12/2021 4:10 PM CDT Aura Foote DO LAB - CHEMISTRY [facility] Performing Organization Address City/[facility]/ZIP Co de Phone Number [facility] [address] [place] [address], [place] [phone] * LACTIC ACID BLOOD (05/10/2021 11:34 PM CDT) Lactic Acid-Stat 1.8 <=2.0 mmol/L 05/11/2021 12:04 AM CDT [facility] Blood BLOOD SPECIMEN / Unknown Venipuncture / Unknown 05/10/2021 11:34 PM CDT 05/10/2021 11:45 PM CDT Low Neely MD LAB - CHEMISTRY [facility] [address] [place] [address], [facility] [phone] * ID CYSTOURETHROSCOPY (04/11/2021 1:00 PM CDT) Narrative Lana [...] Lana GONZALEZ PROCEDURE/MIN OR SURGICAL ORDERABLES * ID MSR PVR U&/BLADD CAPCTY US NON (04/07/2021 10:11 AM CDT) Narrative [place] - 04/07/2021 10:11 AM CDT Didier Meza ? 04/11/2021 ??1:07 PM 58 ml Lana Putnam Kendell DOLL REPAIRER-FLOORING SALES MANAGER PROCEDURE/MIN OR SURGICAL ORDERABLES * TSH (03/18/2021 2:36 PM CDT) Only the most recent of12 resultswithin the time period is included. TSH 1.51 0.40 - 4.50 mIU/L [facility] Comment: REPORT COMMENT: FASTING:NO Test Performed at: [facility] [address] [place], [place] ??[phone] SHERIF MEJIA DO,MPH Blood BLOOD SPECIMEN / Unknown 03/18/2021 2:36 PM CDT 03/18/2021 2:37 PM CDT Erica Reno DOLL REPAIRER-FLOORING SALES MANAGER LAB - CHEMI STRY ORDERABLES [facility] [address] [place] [address] * CT CHEST WO CONTRAST (01/19/2021 2:17 [...] on 01/19/2021 5:44 PM . Erica Reno DOLL REPAIRER-FLOORING SALES MANAGER CT ORDERABL ES * EGD (12/14/2020 9:14 [...] Procedure Code(s): ? --- Professional --- ? 44634, Esophagogastroduode noscopy, flexible, transoral; with biopsy, ? single or multiple Diagnosis Code(s): ?--- Professional --- ?K92.2, Gastrointestinal hemorrhage, unspecified ?R13.10, Dysphagia, unspecified ?R12, Heartburn CPT copyright 2019 [employer]. All rights reserved. The codes documented in this report are preliminary and upon remote medical coder review may be revised to meet current compliance requirements. Terrell Quijano MD 12/14/2020 10:34:32 AM This report has been signed electronically. Note Initiated On: 12/14/2020 9:14 AM Number of Addenda: 0 ? [facility] ? [address] [place] [address] [facility] 12/14/2020 9:14 AM CDT Terrell Acevedo MD GI PROCEDU RE ORDERABLES [facility] * ENDOSCOPY, COLON, SCREENING (12/14/2020 9:12 AM [...] and ?oxygen saturations were monitored continuously. The ?CF-[id number] was introduced through the anus and ?advanced [...] Procedure Code(s): ? --- Professional --- ? [address]4595, 52, Colonoscopy, flexible; with biopsy, single or multiple Diagnosis Code(s): ?--- Professional --- ?Z86.010, Personal history of colonic polyps CPT copyright 2019 [employer]. All rights reserved. The codes documented in this report are preliminary and upon remote medical coder review may be revised to meet current compliance requirements. Terrell Quijano MD 12/14/2020 10:40:50 AM This report has been signed electronically. Note Initiated On: 12/14/2020 9:12 AM Number of Addenda: 0 ? [facility] ? [address] [place] [address] [facility] 12/14/2020 9:12 AM CDT Terrell Acevedo MD GI PROCEDU RE ORDERABLES [facility] * ID ECG/REVIEW INTERPRET ONLY (11/13/2020 11:37 PM CDT) Narrative Divine Fam MD - 11/13/2020 11:37 PM CDT [...] NO MICROSCOPIC NO CULTURE (10/07/2020 1:08 PM YARN BLEACHING MACHINE OPERATOR) Only the most recent of2 resultswithin the time period is included. Color UA YELLOW YELLOW [facility] Appearance TURBID(A) CLEAR [facility] Specific [place] UA 1.019 1.001 - 1.035 [facility] pH UA 6.0 5.0 - 8.0 [facility] Glucose UA NEGATIVE NEGATIVE [facility] Bilirubin UA NEGATIVE NEGATIVE [facility] Ketone UA NEGATIVE NEGATIVE [facility] Blood UA 1+(A) NEGATIVE [facility] Protein UA NEGATIVE NEGATIVE [facility] Nitrite UA POSITIVE(A) NEGATIVE [facility] Leukocyte UA 3+(A) NEGATIVE [facility] Comment: Test Performed at: [facility] [id number] [place] [address] ??[phone] SHERIF MEJIA DO,MPH Urine URINE SPECIMEN OBTAINED BY CLEAN CATCH PROCEDURE / Unknown 10/07/2020 1:08 PM YARN BLEACHING MACHINE OPERATOR 10/07/2020 1:09 PM YARN BLEACHING MACHINE OPERATOR Lana Rdz DOLL REPAIRER-FLOORING SALES MANAGER LAB - URINALY SIS ORDERABLES [facility] [address] [place] [address] * MAMMO BILAT SCREENING (09/15/2020 10:29 AM YARN BLEACHING MACHINE OPERATOR) Only the most recent of3 resultswithin the time period is included. Anatomical Region Laterality Modality Breast Bilateral Mammography 09/15/2020 3:03 PM YARN BLEACHING MACHINE OPERATOR Impressions 09/15/2020 3:05 PM YARN BLEACHING MACHINE OPERATOR No mammographic evidence of malignancy in either breast. ASSESSMENT: BIRADS Category 1: Negative mammogram. RECOMMENDATION: Bilateral screening mammogram in one year. Thank you for allowing us to participate in the care of your patient. *Reading Radiologist: Yudith Ruiz on 09/15/2020 at 3:05 PM Narrative 09/15/2020 3:05 PM YARN BLEACHING MACHINE OPERATOR EXAMINATION: Digital screening mammogram on 09/15/2020 10:14 [...] change since the prior examination. 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 The visualized portion of the operative segments are unchanged in alignment, with moderate bony fusion along the C3-4 and C4-5 vertebral bodies. This report was electronically signed by JOVANY ALBA ??on 08/12/2020 10:38 AM . Narrative 08/12/2020 10:38 AM YARN BLEACHING MACHINE OPERATOR EXAMINATION: XR CERVICAL SPINE 2 OR 3VW HISTORY: M54.2: Neck pain COMPARISON: MRI from 06/23/2020 FINDINGS: There is again postoperative change of ACDF at C3-4 and C5-C7. The C7 vertebral body is excluded from the [id number]-fi-xemz on the lateral image. The visualized alignment [...] C7 vertebral body is excluded from the gvbjm-xn-fnam on the lateral image. The visualized alignment is unchanged. The hardware is unchanged.Moderate bony fusion is suggested along the operative segment vertebral bodies, particular at C3-4 and C4-5. There is no prevertebral swelling. IMPRESSION: The C7 vertebral body is excluded from owryt-td-sgob. The visualized portion of the operative segments are unchanged in alignment, with moderate bony fusion along the C3-4 and C4-5 vertebral bodies. This report was electronically signed by JOVANY ALBA on 08/12/2020 10:38 AM . Carlos Manriquez MD DIAGNOSTIC IMAGING O RDERABLES * MRI CERVICAL SPINE WO CONTRAST (06/23/2020 6:31 AM YARN BLEACHING MACHINE OPERATOR) Anatomical Region Laterality Modality Pelvis Magnetic Resonan ce 06/23/2020 2:32 PM YARN BLEACHING MACHINE OPERATOR Impressions 06/23/2020 6:15 PM YARN BLEACHING MACHINE OPERATOR IMPRESSION: 1.Postoperative appearance of anterior cervical fusion [...] 6:15 PM . Narrative 06/23/2020 6:15 PM YARN BLEACHING MACHINE OPERATOR MRI CERVICAL SPINE WO CONTRAST DATE: 06/23/2020 [...] DIFFICILE TOXIN/GDH W/REFL TO PCR ?Micro Number: ?[id number] ??Test Status: ? Final ??Specimen Source: ?? STOOL ??Specimen Quality: ??Adequate ??GDH Antigen: ? Not Detected ??Toxin A and B: ? Not Detected ??COMMENT: ? No toxigenic C. difficile detected ? For additional information, please refer to ? http://education.Dokogeo/faq/HNV728 ? (This link is being provided for ? informational/educational purposes only.) Test Performed at: [facility] ??[phone] DARNELL RAI MD Stool STOOL SPECIMEN / Unknown 01/03/2020 11:23 AM CDT 01/03/2020 11:24 AM CDT Mindy Salgado PA-C LAB - MICROBIOLOG Y ORDERABLES Performing Organization Address [facility] Co de Phone Number [address] [address] * CULTURE STOOL PANEL (01/03/2020 11:23 AM CDT) Only the most recent of2 resultswithin the time period is included. EIA [facility] Comment: ??SHIGA TOXINS, EIA W/RFL TO E.COLI O157 CULTURE ?Micro Number: ?[id number] ??Test Status: ? Final ??Specimen Source: ?? STOOL ??Specimen Quality: ??Adequate ??Shiga Toxin: ? Not Detected Culture [facility] Comment: ??CAMPYLOBACTER, CULTURE ?Micro Number: ?[id number] ??Test Status: ? Final ??Specimen Source: ?? STOOL ??Specimen Quality: ??Adequate ??Result: ?No enteric Campylobacter isolated Culture [facility] Comment: ??SALMONELLA AND SHIGELLA, CULTURE ?Micro Number: ?[id number] ??Test Status: ? Final ??Specimen Source: ?? STOOL ??Specimen Quality: ??Adequate ??Result: ?No Salmonella or Shigella isolated REPORT COMMENT: SPLIT 01/01/2020 FROM [id number] Test Performed at: [facility] ??[phone] DARNELL RAI MD Stool STOOL SPECIMEN / Unknown 01/03/2020 11:23 AM CDT 01/03/2020 11:24 AM CDT Mindy Salgado PA-C LAB - MICROBIOLOG Y ORDERABLES Performing Organization Address City/[facility] Co de Phone Number [address] [address] * C-REACTIVE PROTEIN (01/01/2020 8:12 AM CDT) Only the most recent of2 resultswithin the time period is included. C-Reactive Protein 6.3 <8.0 mg/L [facility] Comment: REPORT COMMENT: COLLECTION KIT GIVEN TO PATIENT. PATIENT ADVISED TO RETURN. Test Performed at: [facility] [address] [place] [address] ??[phone] SHERIF MEJIA DO,MPH Blood BLOOD SPECIMEN / Unknown 01/01/2020 8:12 AM CDT 01/01/2020 8:13 AM CDT Mindy Salgado PA-C LAB - CHEMISTRY O RDERABLES Performing Organization Address [facility] de Phone Number [address] [address] * ERYTHROCYTE SEDIMENTATION RATE (01/01/2020 8:12 AM CDT) Only the most recent of2 resultswithin the time period is included. Erythrocyte Sedimentation Rate Westergren 5 < OR = 30 mm/h [facility] Comment: Test Performed at: [facility] ??[phone] DARNELL RAI MD Blood BLOOD SPECIMEN / Unknown 01/01/2020 8:12 AM CDT 01/01/2020 8:13 AM CDT Mindy Salgado PA-C LAB - HEMATOLOGY ORDERABLES Performing Organization Address [facility] Co de Phone Number [address] [address] * IR CAROTID CEREBRAL ANGIOGRAM (11/18/2019 9:26 [...] to evaluate for candidacy for stent placement. Child Development Consultant: Osmel Fried Assistants: Jai Whittaker Vessels: Ultrasound guided access of right femoral artery Right common carotid artery angiogram: Cervical and cerebral Right femoral artery angiogram 3D [place] CT was obtained by injection of contrast with the catheter in the right common carotid artery. The data was sent to a [employer] work station and analyzed with surface rendering. Anesthesia: Procedure was done under monitored anesthesia care (MAC). Please see anesthesia team documentation in [facility] for details. For details on monitored clinical parameters during the intra-service sedation time, please review the procedure nurse documentation in [facility]. Procedural detail: The risks, benefits, [...] Following a series of exchanges, a 6 [place]ian 35 cm Brite tip sheath was placed in the right femoral artery and a 5 Ghanaian Swanson 2 catheter was navigated into the [...] removed. Hemostasis was achieved using a 6 Ghanaian Angio-Seal closure device. Hemostasis was immediate at [...] stenosis toevaluate for candidacy for stent placement. Child Development Consultant: Osmel Fried Assistants: Jai Whittaker Vessels: Ultrasound guided access of right femoral artery Right common carotid artery angiogram: Cervical and cerebral Right femoral artery angiogram 3D [place] CT was obtained by injection of contrast with the catheter inthe right common carotid artery. The data was sent to a [employer] workstation and analyzed with surface rendering. Anesthesia: Procedure was done under monitored anesthesia care (MAC). Please see anesthesia team documentation in [facility] for details. Fordetails on monitored clinical parameters during the intra-service sedation time, please review the procedure nurse documentation in [facility]. Procedural detail: The risks, benefits, [...] documented. Following aseries of exchanges, a 6 Ghanaian 35 cm Brite tip sheath was placed in the right femoral artery and a 5 Ghanaian Codeanywhere 2 catheter was navigated into the aortic [...] removed. Hemostasis was achieved using a 6 Ghanaian Angio-Seal closure device. Hemostasis was immediate at [...] CANCER SCREEN LOW DOSE (08/04/2019 2:00 PM YARN BLEACHING MACHINE OPERATOR) Anatomical Region Laterality Modality Chest Computed Tomogra phy 08/04/2019 2:41 PM YARN BLEACHING MACHINE OPERATOR Impressions 08/08/2019 1:19 PM YARN BLEACHING MACHINE OPERATOR IMPRESSION: 1. No suspicious pulmonary nodule identified. Lung RADS category 1. Annual low-dose screening chest CT can be continued. Dictated by Ileana Santiago MD (microarray operations vice president). Dr. MARLY Stevenson M.D. have personally reviewed and interpreted this examination/study. This report was electronically signed by MARLY SMITH M.D. ??on 08/08/2019 1:19 PM . Narrative 08/08/2019 1:19 PM YARN BLEACHING MACHINE OPERATOR EXAMINATION: Computed tomography (CT) of the chest [...] be continued. Dictated by Ileana Santiago MD (microarray operations vice president). I, Dr. MARLY SMITH M.D. have personally reviewed and interpretedthis examination/study. This report was electronically signed by MARLY SMITH M.D. on 08/08/2019 1:19 PM . Erica Reno DOLL REPAIRER-FLOORING SALES MANAGER CT ORDERABL ES * CALCIUM IONIZED WHOLE BLOOD (06/18/2019 4:22 PM YARN BLEACHING MACHINE OPERATOR) Ionized Calcium Whole Blood 1.22 mmol/L 06/18/2019 4:36 PM [facility] Adjusted Ionized Calcium 1.21 1.19 - 1.34 mmol/L 06/18/2019 4:36 PM [facility] pH Whole Blood 7.38 7.35 - 7.45 06/18/2019 4:36 PM [facility] Whole Blood WHOLE BLOOD SPECIMEN / Unknown Venipuncture / Unknown 06/18/2019 4:22 PM YARN BLEACHING MACHINE OPERATOR 06/18/2019 4:30 PM YARN BLEACHING MACHINE OPERATOR Madison Joyce MD LAB - CHEMISTRY [place] [address] [phone] * CARDIAC RHYTHM STRIP ORDER (06/05/2019 8:14 [...] * EEG (05/27/2019 12:48 PM CDT) Narrative [facility] - 05/27/2019 12:48 PM CDT Donavon Stafford MD ? 05/27/2019 12:49 PM ? [facility] 4W TELE [address] [place] [address] Electroencephalogram Ivonne Vera 05/27/2019 Indication: ?? Ivonne [...] sleep-deprived EEG. LIDIA Workman MD, PhD Diplomate, [place] Board of Psychiatry and Neurology (ABPN) Board Certified in Neurology and Clinical Neurophysiology [address], [facility] [address] [place] [address] (office) [phone] (FAX) Donavon Stafford MD NEUROLOGY ORDERABLES [facility] * ID INSERT NON-INDWELLING BLADDER (05/23/2019 2:02 PM CDT) [...] resultswithin the time period is included. Pathologist [facility] Hemoglobin POCT 6.2 [facility] Blood BLOOD SPECIMEN / Unknown 05/19/2019 9:57 AM CDT Erica Reno DOLL REPAIRER-FLOORING SALES MANAGER LAB - POINT OF CARE ORDERABLES Performing Organization Address [facility] Co de Phone Number [facility] [address] [facility] [address] * TISSUE TRANSGLUTAMINASE AB IGA (03/18/2019 1:07 PM CDT) Only the most recent of2 resultswithin the time period is included. Pathologist [facility] TTG Antibody IgA 1 <4 U/mL [facility] Comment: ?Value ??Interpretation ?<4 U/mL: No Antibody Detected ? >or=4 U/mL: Antibody Detected Test Performed at: [facility] [address] ??[phone] GAIL ASHRAF MD,PHD Blood BLOOD SPECIMEN / Unknown 03/18/2019 1:07 PM CDT 03/18/2019 1:08 PM CDT Mindy Salgado PA-C LAB - [place]Y [place] [address] * T4 FREE (03/18/2019 1:07 PM CDT) Only the most recent of6 resultswithin the time period is included. T4 Free 1.1 0.8 - 1.8 ng/dL [facility] Comment: Test Performed at: [facility] [address] [place], [place] ??[phone] SHERIF MEJIA DO,MPH Blood BLOOD SPECIMEN / Unknown 03/18/2019 1:07 PM CDT 03/18/2019 1:08 PM CDT Mindy Salgado PA-C LAB - CHEMISTRY O RDMARYCARMEN Performing Organization Address [facility] [place] [address] * IGA BLOOD (03/18/2019 1:07 PM CDT) Only the most recent of3 resultswithin the time period is included. Pathologist [facility] IgA 134 20 - 320 mg/dL [facility] Comment: Test Performed at: [facility] [address] [place] [address] ??[phone] SHERIF MEJIA DO,MPH Blood BLOOD SPECIMEN / Unknown 03/18/2019 1:07 PM CDT 03/18/2019 1:08 PM CDT Mindy Salgado PA-C LAB - CHEMISTRY O RDMARYCARMEN Performing Organization Address [facility] [place] [address] * ID CYSTOURETHROSCOPY (02/25/2019 1:39 PM CDT) Narrative Rodrigo [...] pH units Blood UA neg Negative Specific Marquette UA POCT 1.010 1.002 - 1.030 Ketone [...] - 78 Units/L 01/03/2019 5:10 PM CDT [facility] Blood BLOOD SPECIMEN / Unknown Venipuncture / Unknown 01/03/2019 4:51 PM CDT 01/03/2019 4:51 PM CDT Miriam Grajeda MD LAB - CHEMISTRY [place] [address] [phone] * MRI SHOULDER RIGHT WO CONTRAST (01/01/2019 4:17 PM CDT) Anatomical Region Laterality Modality Magnetic Resonan ce 01/02/2019 7:36 AM CDT Impressions 01/02/2019 8:24 AM CDT Impression: 1. Large full-thickness rotator cuff tear involving the entire supraspinatus and superior portion of the infraspinatus tendons with associated retraction and muscle atrophy. 2. Moderate joint effusion. 3. Mild arthritis. Report dictated by Allen Thornton DO (microarray operations vice president). I, Dr. EDMOND LÓPEZ MD have personally [...] shoulder MRI without contrast dated 07/22/2018 at [facility]. Right shoulder radiograph dated 12/10/2018. Findings: The [...] shoulder MRI without contrast dated 07/22/2018 at [facility]. Right shoulder radiograph dated 12/10/2018. Findings: The [...] arthritis. Report dictated by Allen Thornton DO (microarray operations vice president). I, Dr. EDMOND LÓPEZ MD have personally [...] fusion hardware is partly imaged. Procedure Note Edmond López MD - 12/10/2018 Exam: XR SHOULDER [...] ug/mL 12/11/2018 11:39 AM CDT [facility]) Pneumococcal Serotype 2 Antibody IgG 0.27 ug/mL 12/11/2018 11:39 AM CDT [facility] ([facility]) Pneumococcal Serotype 3 Antibody IgG 2.41 ug/mL 12/11/2018 11:39 AM CDT [facility] ([facility]) Pneumococcal Serotype 4 Antibody IgG 8.10 ug/mL 12/11/2018 11:39 AM CDT [facility] ([facility]) Pneumococcal Serotype 5 Antibody IgG 5.17 ug/mL 12/11/2018 11:39 AM CDT [facility] ([facility]) Pneumococcal Serotype 6B Antibody IgG 13.36 ug/mL 12/11/2018 11:39 AM CDT [facility] ([facility]) Pneumococcal Serotype 7F Antibody IgG 0.70 ug/mL 12/11/2018 11:39 AM CDT [facility] ([facility]) Pneumococcal Serotype 8 Antibody IgG 0.85 ug/mL 12/11/2018 11:39 AM CDT [facility] ([facility]) Pneumococcal Serotype 9N Antibody IgG 6.45 ug/mL 12/11/2018 11:39 AM CDT [facility] ([facility]) Pneumococcal Serotype 9V Antibody IgG 5.66 ug/mL 12/11/2018 11:39 AM CDT [facility] ([facility]) Pneumococcal Serotype 10a Antibody IgG 0.89 ug/mL 12/11/2018 11:39 AM CDT [facility] ([facility]) Pneumococcal Serotype 11a Antibody IgG 2.15 ug/mL 12/11/2018 11:39 AM CDT [facility]) Pneumococcal Serotype 12F Antibody IgG 0.11 ug/mL 12/11/2018 11:39 AM CDT [facility] ([facility]) Pneumococcal Serotype 14 Antibody IgG 22.49 ug/mL 12/11/2018 11:39 AM CDT [facility]) Pneumococcal Serotype 15b Antibody IgG 5.51 ug/mL 12/11/2018 11:39 AM CDT [facility] ([facility]) Pneumococcal Serotype 17f Antibody IgG 18.20 ug/mL 12/11/2018 11:39 AM CDT [facility]) Pneumococcal Serotype 18C Antibody IgG 12.10 ug/mL 12/11/2018 11:39 AM CDT [facility]) Pneumococcal Serotype 19a Antibody IgG 7.21 ug/mL 12/11/2018 11:39 AM CDT [facility] ([facility]) Pneumococcal Serotype 19F Antibody IgG 6.44 ug/mL 12/11/2018 11:39 AM CDT [facility]) Pneumococcal Serotype 20 Antibody IgG 0.70 ug/mL 12/11/2018 11:39 AM CDT [facility]) Pneumococcal Serotype 22f Antibody IgG 0.45 ug/mL 12/11/2018 11:39 AM CDT [facility]) Pneumococcal Serotype 23F Antibody IgG 0.43 ug/mL 12/11/2018 11:39 AM CDT [facility]) Pneumococcal Serotype 33f Antibody IgG 0.27 ug/mL 12/11/2018 11:39 AM CDT [facility]) Interpretation Pneumococcal Serotype See Note 12/11/2018 11:39 AM CDT [facility] Comment: INTERPRETIVE INFORMATION: Streptococcus pneumoniae Antibodies, IgG [...] 2015;22(2):148-152. Test developed and characteristics determined by [facility]. See Compliance Statement B: [email or web address]/ Performed by [facility], [address] [place] [address] [email or web address], Souleymane Disla MD, Lab. Director Blood BLOOD SPECIMEN / Unknown Lab Venipuncture / Unknown 12/09/2018 10:27 AM CDT 12/09/2018 10:53 AM CDT Kary Schmidt MD LAB - CHEMISTRY [place] [facility] ([facility]) [address] * B-TYPE NATRIURETIC PEPTIDE (12/09/2018 10:27 AM CDT) Only the most recent of3 resultswithin the time period is included. BNP 18 See Comment pg/mL 12/09/2018 11:41 AM CDT [facility] Comment: * Disclaimer: BNP results may be falsely high by 20% due * * to shift observed secondary to new reagent lot. Lab ?* * working with packaging sales consultant to resolve. ?* * ?* * Please contact [facility] [employer] Director with any questions ??* A decision threshold [...] Olivas MD LAB - CHEMISTRY [place] [facility] Organization Address [facility] Co de Phone Number [address] [phone] * ID INSERT NON-INDWELLING BLADDER (10/09/2018 9:20 AM YARN BLEACHING MACHINE OPERATOR) Narrative Rodrigo Valles Che, MD - 10/09/2018 9:20 AM YARN BLEACHING MACHINE OPERATOR Rodrigo Valles Che, MD ? 10/09/2018 ??9:20 [...] analytical performance characteristics have been determined by [facility]. It has not been cleared or approved by FDA. This assay has been validated pursuant to the CLIA regulations and is used for clinical purposes. Test Performed at: [facility] [address] [place], [place] ??[phone] Hadley MARTINES Blood BLOOD SPECIMEN / Unknown 06/01/2018 3:45 AM CDT Paul Fischer MD LAB - CHEMISTRY [place] [facility] Organization Address City/State/ZIP Co de Phone Number [facility] [address] [place] [address] * DIPHTHERIA ANTIBODY (06/06/2018 4:00 PM CDT) [facility] Diphtheria Antitoxid Antibody 0.18 IU/mL [facility] Comment: [...] analytical performance characteristics have been determined by [facility]. It has not been cleared or approved by FDA. This assay has been validated pursuant to the CLIA regulations and is used for clinical purposes. NO COLLECTION DATE RECEIVED. WE HAVE USED THE DATE THE SPECIMEN WAS RECEIVED BY THIS LABORATORY THE COLLECTION DATE. IF THIS IS INCORRECT, PLEASE CONTACT CLIENT SERVICES. PHONE NUMBER: [phone] Test Performed at: [facility] [address] [place] [address] ??[phone] Hadley MARTINES Blood BLOOD SPECIMEN / Unknown 06/01/2018 3:45 AM CDT Paul Fischer MD LAB - CHEMISTRY [place] Performing Organization Address [facility] [[email or web address]] de Phone Number [facility] [address] [place] [address] * (ABNORMAL) COMPLEMENT TOTAL (06/06/2018 4:00 PM CDT) Pathologist [facility] Complement Total CH50 >60(H) 31 - 60 U/mL [facility] Comment: Test Performed at: [facility] ??[phone] SHERIF MEJIA DO,MPH Blood BLOOD SPECIMEN / Unknown 06/01/2018 3:45 AM CDT Paul Fischer MD LAB - CHEMISTRY [place] Performing Organization Address [facility] [[email or web address]] de Phone Number [facility] [address] [place] [address] * (ABNORMAL) MANNOSE-BINDING LECTIN (06/06/2018 4:00 PM CDT) Pathologist [facility] Mannose-Binding Lectin <0.5(L) ng/mL [facility] Comment: ?Reference [...] of this test have been determined by [facility]. This test should not be used for diagnosis without confirmation by other medically established means. Test Performed at: [facility] [address] [facility] [place] [place] [place] ??[phone] SANCHEZ WEAVER MD,PHD,BOLIVAR Blood BLOOD SPECIMEN / Unknown 06/01/2018 3:45 AM CDT Paul Fischer MD LAB - CHEMISTRY [place] Performing Organization Address [facility] Co de Phone Number [facility] [address] [place] [address] * IGE BLOOD (06/06/2018 4:00 PM CDT) IgE 2 <MV=120 kU/L [facility] Comment: Test Performed at: [facility] [place] [address] [place], [place] ??[phone] SHERIF MEJIA DO,MPH Blood BLOOD SPECIMEN / Unknown 06/01/2018 3:45 AM CDT Paul Fischer MD LAB - CHEMISTRY [place] Performing Organization Address [facility] Co de Phone Number [facility] [phone] [place] [phone] * (ABNORMAL) IGM BLOOD (06/06/2018 4:00 PM CDT) IgM 46(L) 48 - 271 mg/dL [facility] Comment: Test Performed at: [facility] [place] [address] [place], [place] ??[phone] SHERIF MEJIA DO,MPH Blood BLOOD SPECIMEN / Unknown 06/01/2018 3:45 AM CDT Paul Fischer MD LAB - CHEMISTRY [facility] [place] Performing Organization Address [facility] Co de Phone Number [facility] [address] [place] [address] * (ABNORMAL) IGG BLOOD (06/06/2018 4:00 PM CDT) IgG 504(L) 694 - 1618 mg/dL [facility] Comment: Test Performed at: [facility] [address] [place] [place] ??[phone] SHERIF MEJIA DO,MPH Blood BLOOD SPECIMEN / Unknown 06/01/2018 3:45 AM CDT Paul Fischer MD LAB - CHEMISTRY [place] [facility] [address] [place] [address] * FLOW CYTOMETRY PADMAJA MEDIUM PANEL (05/31/2018 12:39 PM CDT) Pathologist [facility] Reason for test Hypogammaglobulinemi a 279.00 8 4:04 PM CDT [facility] Client Specimen ID # [id number] 8 4:04 PM T [facility] Number of Markers 9 8 4:04 PM CDT [facility] Flow Cytometry Results Differential Result Comment WBC Count /uL 24046 % Lymphocytes 37 Lymphocyte Count u/L 3885 8 4:04 PM CDT [facility] Flow Cytometry Results (Continued) Cell [...] - IgD+ 95 8 4:04 PM CDT [facility] Flow Cytometry Interpretation Testing is technical only and does not require an interpretation of results. 8 4:04 PM T [facility] Reference Range Peripheral Blood Lymphocyte [...] 0-1 % IgD 3-15 CD16 0-23 % Little Sturgeon 3-12 % CD19 8-24 % Lambda 3-7 % CD20 7-17 % HLA-DR 9-25 % CD23 2-16 % TdT 0 % % 8 4:04 PM CDT [facility] Disclaimer Test performed at [facility], [address] [place] [address], [facility]. This test was developed and its performance [...] perform high complexity clinical testing. By law [place], CD4 lymphocyte counts on patients with HIV infection must be reported by the physician to the [facility] Health authority. 8 4:04 PM CDT [facility] Embedded Images 8 4:04 PM CDT [facility] Blood BLOOD SPECIMEN / Unknown Lab Venipuncture / Unknown 05/31/2018 12:39 PM CDT 05/31/2018 12:51 PM CDT Paul Fischer MD LAB - PATHOLOGY/CYTO LOGY ORDERABLES [facility] [address] [place] [address]. [place] [address], [facility] [phone] * ALLERGEN RESPIRATORY PROFILE ([place]) (05/31/2018 12:39 PM CDT) IgE Total <2 <=214 kU/L 06/02/2018 9:15 PM CDT [facility] ([facility]) Comment: REFERENCE INTERVAL: Immunoglobulin E, Serum Access complete set of age- and/or gender-specific reference intervals for this test in the [facility] Laboratory Test Directory ([email or web address]). Allergen Dermatophagoides farinae <0.10 <=0.34 kU/L 06/02/2018 9:15 PM CDT [facility] ([facility]) Allergen Dermatophagoides pteronyssinus <0.10 <=0.34 kU/L 06/02/2018 9:15 PM CDT [facility] ([facility]) Allergen Cat Dander <0.10 <=0.34 kU/L 06/02/2018 9:15 PM CDT [facility] ([facility]) Allergen Dog Dander <0.10 <=0.34 kU/L 06/02/2018 9:15 PM CDT [facility] ([facility]) Allergen Bermuda Grass <0.10 <=0.34 kU/L 06/02/2018 9:15 PM CDT [facility] ([facility]) Allergen Michael Grass <0.10 <=0.34 kU/L 06/02/2018 9:15 PM CDT [facility] ([facility]) Allergen Cockroach Slovenian <0.10 <=0.34 kU/L 06/02/2018 9:15 PM CDT [facility] ([facility]) Allergen Alternaria alternata <0.10 <=0.34 kU/L 06/02/2018 9:15 PM CDT [facility] ([facility]) Allergen A fumigatus IgE <0.10 <=0.34 kU/L 06/02/2018 9:15 PM CDT [facility] ([facility]) Allergen Hormodendrum <0.10 <=0.34 kU/L 06/02/2018 9:15 PM CDT [facility] ([facility]) Allergen P. Notatum <0.10 <=0.34 kU/L 06/02/2018 9:15 PM CDT [facility] ([facility]) Allergen Odin Maple <0.10 <=0.34 kU/L 06/02/2018 9:15 PM CDT [facility] ([facility]) Allergen Bradley Tree <0.10 <=0.34 kU/L 06/02/2018 9:15 PM CDT [facility] ([facility]) Allergen Elm <0.10 <=0.34 kU/L 06/02/2018 9:15 PM CDT [facility] ([facility]) Allergen Harshaw Tree <0.10 <=0.34 kU/L 06/02/2018 9:15 PM CDT [facility] ([facility]) Allergen Mountain Trego <0.10 <=0.34 kU/L 06/02/2018 9:15 PM CDT [facility]) Allergen White Bayamon Tree IgE <0.10 <=0.34 kU/L 06/02/2018 9:15 PM CDT [facility]) Allergen Addy <0.10 <=0.34 kU/L 06/02/2018 9:15 PM CDT [facility]) Allergen Pecan Tree <0.10 <=0.34 kU/L 06/02/2018 9:15 PM CDT [facility]) Allergen Cascade Tree <0.10 <=0.34 kU/L 06/02/2018 9:15 PM CDT [facility]) Allergen White Jeff <0.10 <=0.34 kU/L 06/02/2018 9:15 PM CDT [facility]) Allergen Rough Pigweed <0.10 <=0.34 kU/L 06/02/2018 9:15 PM CDT [facility]) Allergen Common Ragweed <0.10 <=0.34 kU/L 06/02/2018 9:15 PM CDT [facility] ([facility]) Allergen Martinez Elder <0.10 <=0.34 kU/L 06/02/2018 9:15 PM CDT [facility] ([facility]) Allergen Algerian Thistle <0.10 <=0.34 kU/L 06/02/2018 9:15 PM CDT [facility]) Allergen Mouse <0.10 <=0.34 kU/L 06/02/2018 9:15 PM CDT [facility] ([facility]) Allergen Mucor racemosus <0.10 <=0.34 kU/L 06/02/2018 9:15 PM CDT [facility] ([facility]) Allergen Peanut <0.10 <=0.34 kU/L 06/02/2018 9:15 PM CDT [facility] ([facility]) Allergen Milk (Cow) <0.10 <=0.34 kU/L 06/02/2018 9:15 PM CDT [facility] ([facility]) Comment: Performed by [facility], [address] [place] [address] [email or web address], Souleymane Disla MD, Lab. Director Blood BLOOD SPECIMEN / Unknown Lab Venipuncture / Unknown 05/31/2018 12:39 PM CDT 05/31/2018 12:48 PM CDT Christopher Blair DO LAB - CHEMISTRY [facility] [employer] [facility]) [address] [place] [address], [facility] * URINALYSIS - POINT OF CARE (AMB) [facility] (05/08/2018) Only the most recent of17 resultswithin the time period is included. Specific Marquette UA 1.020 pH UA 6.0 WBC UA - neg Nitrite UA - neg Protein UA - neg Glucose UA - neg Ketones UA POCT - neg Urobilinogen UA 0.2 mg/dL Bilirubin UA POCT - neg Blood Urine POCT - neg Urine URINE / Unknown 05/08/2018 Víctor Lacey MD LAB - POINT OF CA RE ORDERABLES * ID 3 COMP FOOT EXAM COMPLETED (Automatically Completed) (03/07/2018) Narrative Erica Reno, DOLL REPAIRER-FLOORING SALES MANAGER - 03/07/2018 left and right foot/feet examined with shoes and socks removed. Visual inspection was normal. Sensory exam with monofilament was ??normal. Dorsal pedal and posterior tibial pulses were normal. Erica Reno DOLL REPAIRER-FLOORING SALES MANAGER ID - PROFES SIONAL SERVICES * HEPATIC FUNCTION PANEL (02/06/2018 2:39 PM CDT) Only the most recent of3 resultswithin the time period is included. Protein Total 7.2 6.0 - 8.3 g/dL 018 3:20 PM T [facility] Albumin 4.1 3.4 - 5.0 g/dL 02/06/2018 3:20 PM [facility] Bilirubin Total 0.6 0.2 - 1.2 mg/dL 01/12 3:20 PM [facility] Bilirubin Conjugated 0.2 0.0 - 0.5 mg/dL 02/06/2018 3:20 PM [facility] Bilirubin Unconjugated 0.4 Unconjugated Bilirubin is a calculated value: Reference ranges have not been established. mg/dL 02/06/2018 3:20 PM [facility] Alkaline Phosphatase 104 40 - 150 Units/L 02/06/2018 3:20 PM [facility] ALT 9 0 - 55 Units/L 02/06/2018 3:20 PM [facility] AST 19 5 - 34 Units/L 02/06/2018 3:20 PM [facility] Albumin/Globulin Ratio 1.3 1.1 - 2.3 02/06/2018 3:20 PM [facility] Blood BLOOD SPECIMEN / Unknown Lab Venipuncture / Unknown 02/06/2018 2:39 PM CDT 02/06/2018 2:49 PM CDT Vícotr Lacey MD LAB - CHEMISTRY O RDERABLES [address] [phone] * ID TTE W/DOPPLER, COMPLETE, ID INJ PERFLUTREN LIP MICROS,ML (01/14/2018 4:09 PM CDT) Narrative Emani Ruiz MD - 01/14/2018 4:09 PM CDT Emani Ruiz MD ? 01/14/2018 ??4:09 PM [facility] 2-D & M-Mode Echocardiogram Report Color Flow Doppler Report Patients Name: Ivonne Vera ?: 1955 Age: 62 y.o. Gender: female ?? Date of Test: ??01/10/2018 Referring Physician: Alen Olivas MD [address] [facility] [address] [place] [address] Primary Care Physician: Siri Wolfe MD Introduction: [...] 01/14/18 Alen Olivas MD ECG ORDERABLES * ID DRAIN/INJECT LARGE JOINT/BURSA (12/26/2017 3:05 PM CDT) [...] Historical Provider LAB - CHEMISTRY [place] [place] [address] [place] [address], [facility] * XR PELVIS W RIGHT HIP 2VW (09/19/2017 2:33 PM YARN BLEACHING MACHINE OPERATOR) Anatomical Region Laterality Modality Radiographic Natasha ging 09/19/2017 2:46 PM YARN BLEACHING MACHINE OPERATOR Impressions 09/19/2017 3:40 PM [facility] BLEACHING MACHINE OPERATOR Unremarkable study. Edited by Francisca Clayton on 09/19/2017 2:54 PM Narrative 09/19/2017 3:40 PM YARN BLEACHING MACHINE OPERATOR PELVIS AND RIGHT HIP HISTORY: Pain. Views [...] KNEE 4+ VW RIGHT (09/19/2017 2:33 PM YARN BLEACHING MACHINE OPERATOR) Only the most recent of4 resultswithin the time period is included. Anatomical Region Laterality Modality Lower Extremity Radiographic Natasha ging 09/19/2017 2:45 PM YARN BLEACHING MACHINE OPERATOR Impressions 09/19/2017 2:45 PM YARN BLEACHING MACHINE OPERATOR Unremarkable study. Narrative 09/19/2017 2:45 PM YARN BLEACHING MACHINE OPERATOR Knee 4 views. HISTORY: Knee pain. 4 [...] - 45.5 % 06/06/2017 5:03 AM CDT [facility] Blood BLOOD SPECIMEN / Unknown Lab Venipuncture / Unknown 06/06/2017 4:35 AM CDT 06/06/2017 4:50 AM CDT Mark Fredercik MD LAB - HEMATOLOGY ORDERABLES [facility] [address] [place] [address] * US KIDNEYS/BLADDER (RETROPERITONEAL COMPLETE) (06/05/2017 9:45 [...] SEEN NONE SEEN 06/05/2017 9:56 AM CDT [facility] Urine URINE / Unknown Collection / Unknown 06/05/2017 8:32 AM CDT 06/05/2017 8:43 AM CDT Ivan Castellanos MD LAB - URINE CHEMI STRY ORDERABLES Performing Organization Address [facility] Co de Phone Number [facility] [address] [place] [place] [address] [phone] * LYTES (NA K CL) URINE RANDOM PANEL (06/05/2017 8:32 AM CDT) Sodium Urine 105 mmol/L 06/05/2017 9:05 AM CDT [facility] Potassium Urine 24.4 mmol/L 06/05/2017 9:05 AM CDT [facility] Chloride Urine 105.0 mmol/L 06/05/2017 9:05 AM CDT [facility] Urine URINE SPECIMEN OBTAINED BY CLEAN CATCH PROCEDURE / Unknown Collection / Unknown 06/05/2017 8:32 AM CDT 06/05/2017 8:44 AM CDT Ivan Castellanos MD LAB - URINE CHEMI STRY ORDERABLES Performing Organization Address [facility] Co de Phone Number [facility] [address] [place] [address] * (ABNORMAL) IRON + TRANSFERRIN PANEL (06/05/2017 4:41 AM CDT) Iron 68 50 - 170 ug/dL 06/05/2017 11:35 AM CDT [facility] Transferrin 225(L) 250 - 380 mg/dL 06/05/2017 11:35 AM CDT [facility] TIBC Calculated 281 240 - 450 mg/dL 06/05/2017 11:35 AM CDT [facility] Iron Saturation % 24 20 - 50 % 06/05/2017 11:35 AM CDT [facility] Blood BLOOD SPECIMEN / Unknown Lab Venipuncture / Unknown 06/05/2017 4:41 AM CDT 06/05/2017 11:09 AM CDT Ivan Castellanos MD LAB - CHEMISTRY O RDMARYCARMEN Performing Organization Address [facility] Co de Phone Number [facility] [address] [place] [address] * FERRITIN (06/05/2017 4:41 AM CDT) Only the most recent of3 resultswithin the time period is included. Ferritin 148 10 - 291 ng/mL 06/05/2017 11:35 AM CDT [facility] Blood BLOOD SPECIMEN / Unknown Lab Venipuncture / Unknown 06/05/2017 4:41 AM CDT 06/05/2017 11:09 AM CDT Ivan Castellanos MD LAB - CHEMISTRY O JANET Performing Organization Address [facility] Co de Phone Number [facility] [address] [place] [address] * BLOOD TYPE VERIFICATION (06/04/2017 11:57 AM CDT) Only the most recent of2 resultswithin the time period is included. ABO O 06/04/2017 12:48 PM CDT [facility] Rh Type Positive 06/04/2017 12:48 PM CDT [facility] Blood Bank BLOOD SPECIMEN / Unknown Lab Venipuncture / Unknown 06/04/2017 11:57 AM CDT 06/04/2017 11:57 AM CDT Taiwo Pérez MD LAB - BLOOD BANK OR DERABLES Performing Organization Address City/[facility] Co de Phone Number [facility] [address] [place] [address] * CULTURE MSSA/MRSA (05/14/2017 11:35 AM CDT) Pathologist [facility] Culture Negative for Staphylococcus aureus (MRSA/MSSA) LYNNE 05/16/2017 8:04 AM CDT [facility] MICROBIOLOGY Microbiology SPECIMEN FROM NASAL FOSSAE / Unknown Collection / Unknown 05/14/2017 11:35 AM CDT 05/14/2017 12:10 PM CDT Taiwo Pérez MD LAB - MICROBIOLOGY ORDERABLES [facility] [address] [phone] * TRANSFERRIN (05/14/2017 11:35 AM CDT) Transferrin 283 250 - 380 mg/dL 05/14/2017 12:44 PM CDT [facility] Blood BLOOD SPECIMEN / Unknown Venipuncture / Unknown 05/14/2017 11:35 AM CDT 05/14/2017 12:12 PM CDT Taiwo Pérez MD LAB - CHEMISTRY ORD ERABLES Performing Organization Address [facility] Co de Phone Number [facility] [address] [place] [address] * XR KNEE RIGHT 2VW OR LESS [...] 06 February 2017. On the sagittal counting sales outfitter, instrumented cervical fusion with apparent elevated signal [...] 06 February 2017. On the sagittal counting sales outfitter, instrumented cervical fusion with apparentelevated signal in [...] 06 February 2017. On the sagittal counting sales outfitter, instrumented cervical fusion with apparent elevated signal [...] 06 February 2017. On the sagittal counting sales outfitter, instrumented cervical fusion with apparentelevated signal in [...] included. Glucose, Fingerstick 119(H) 70-115mg/d L mg/dL [facility] RALS (BEAKER) Comment:Child Development Consultant: RUPALI GABRIEL ICA 02/07/2017 11:1 2 AM CDT Nathan Singleton MD LAB - CHEMISTRY [facility] Organization Address City/State/ZIP Co de Phone Number Carlos HARE ([employer]) * XR THORACIC SPINE 2VW (12/20/2016 1:21 [...] included. Color UA Johnson [facility] ([employer]) Stone Size Comment mm [facility] ([employer]) Comment:Specimen received as fragments. Weight 4.0 mg [facility] ([employer]) Stone Composition Comment [facility] ([employer]) Comment:Percentage (Represen ts the % composition) Calcium Oxalate Dihydrate 10 % [facility] (BEAKER) Calcium Oxalate Monohydrate 75 % [facility] (BEAKER) Calcium Phosphate 15 % [facility] (BEAKER) Nidus No Nidus visualized [facility] (BEAKER) Please Note Comment [facility] ([facility]) Comment: Calculi report without photograph will follow via computer, mail, or harvester operator delivery. Comment Comment [facility] ([facility]) Comment: Physician questions regarding Calculi Analysis contact [facility] at: [phone]. Disclaimer Comment [facility] ([facility]) Comment: This test was developed and its performance characteristics determined by [facility]. It has not been cleared or approved by the Food and Drug Administration. Calculus specimen (specimen) ENTIRE KIDNEY / Unknown 06/05/2016 1:36 PM CDT 06/29/2016 8:40 AM YARN BLEACHING MACHINE OPERATOR Narrative [facility] - 07/05/2016 11:13 AM YARN BLEACHING MACHINE OPERATOR Left kidney stones Performed at: ??01 - [address] ??[phone] [employer]osit Boxes Custodian: Sherif Gonzalez MD, Phone: ??[phone] Cassy Flores DO LAB - URINE CHEMIS TRY ORDERABLES Performing Organization Address [facility]/State/[facility] Co de Phone Number [facility] * FL CYSTOGRAM (06/05/2016 1:19 PM CDT) Anatomical Region Laterality Modality Abdomen, Pelvis Other Narrative 06/05/2016 1:19 PM CDT Fluoroscopy was used for this exam. Please see the Operative report. Procedure Note Provider, MD Al[place] - 11/10/2017 Fluoroscopy was used for this exam. Please see the Operative report. Cassy Flores DO FLUOROSCOPY ORDERA BLES * (ABNORMAL) CREATININE BLOOD - POCT (IP) [facility] (04/05/2016) Creatinine POCT 1.46(A) 0.3 - 1.3 mg/dL [facility] eGFR POCT 39(A) 60 ml/min [facility] 04/05/2016 Cassy Flores DO LAB - POINT OF CAR E ORDERABLES [facility] * LAB MISC TEST (03/08/2016 4:00 PM CDT) [facility] Reference Lab Results SEE SCANNED REPORT [facility] REF LAB NON INTERF Other (qualifier value) 03/08/2016 4:00 PM CDT 03/09/2016 7:27 AM CDT Narrative [facility] NON INTERF - 03/24/2016 2:27 PM CDT Test Name:->MYCOPLASMA / UREAPLASMA CULTURE REFRIG URINE Reference Lab Info:->[facility] ?[id number] REFRIG URINE Cassy Flores DO LAB SEND OUT [facility] REF LAB NON INTERF * EVENT MONITOR (12/03/2015 10:04 AM CDT) Only the most recent of2 resultswithin the time period is included. Narrative [facility] - 12/03/2015 10:04 AM CDT Ivonne [...] CARDIAC SERVICES ORD ERABLES Performing Organization Address City/[facility]/ZIP Co de Phone Number [facility] * VITAMIN D 1,25 DIHYDROXY (11/10/2015 8:51 AM CDT) Pathologist [facility] Calcitriol (1,25 di-OH Vit D) 74.4 19.9 - 79.3 pg/mL [facility] ([employer]) Blood specimen (specimen) BLOOD SPECIMEN / Unknown 11/10/2015 8:51 AM CDT 11/10/2015 9:13 AM CDT Narrative [facility] Collibra (ALEX) - 11/11/2015 3:22 PM CDT Performed at: ??01 - [address] ??[phone] [place] Custodian: Sherif Gonzalez MD, Phone: ??[phone] Maryanne Howard MD LAB - CHEMISTRY OR DERABLES [facility] [employer]) * ENDOSCOPY, COLON, SCREENING (11/04/2015 8:54 AM CDT) Pathologist [facility] Report Endoscopy POC _ Patient Name: Ivonne Vrea ? Procedure Date: 11/04/2015 8:54 AM ? Date of : 1955 ? Admit Type: Outpatient Age: 60 ? Gender: Female Attending MD: Maryanne Howard MD _ Procedure: ? Colonoscopy Indications: ? High risk colon cancer surveillance: Personal history of ? colonic polyps, High risk colon cancer surveillance: ? Personal history of non-advanced adenoma Providers: ? Maryanne Howard MD (Doctor), iVlma Casiano RN, Vy ? Deidre Seat Cover Maker Patient Profile: ?? history of cecal adenoma [...] Procedure Code(s): ? --- Professional --- ? 74589, Colonoscopy, flexible; with biopsy, single or multiple ? --- Technical --- ? 19569, Colonoscopy, flexible; with biopsy, single or multiple Diagnosis Code(s): ? --- Professional --- ? K64.8, Other hemorrhoids ? Z86.010, Personal history of colonic polyps ? --- Technical --- ? K64.8, Other hemorrhoids ? Z86.010, Personal history of colonic polyps CPT copyright 2015 [employer]. All rights reserved. The codes documented in this report are preliminary and upon remote medical coder review may be revised to meet current compliance requirements. Maryanne Howard MD 11/04/2015 9:31:51 AM Number of Addenda: 0 Note Initiated On: 11/04/2015 8:54 AM Scope Withdrawal Time: 0 hours 13 minutes 43 seconds [facility] ENDOS[facility] 11/04/2015 8:54 AM CDT Maryanne Howard MD GI PROCEDURE ORDER MARCIA Performing Organization Address City/State/[facility] Co de Phone Number [facility] * GROSS + MICRO EXAM (STL) (11/04/2015 8:45 AM CDT) Case Report Surgical Pathology Report ? Case: [id number] ? Authorizing Provider: ??Maryanne Howard MD ?Collected: ? 11/04/2015 08:45 AM ? Ordering Location: ? [facility] ?Received: ?11/04/2015 01:17 PM ? [...] in D1. OA/lv 11/05/2015 9:22 AM CDT [facility] Microscopic Description 1. Sections show fragments [...] technically acceptable. MGC/alj 11/05/2015 9:22 AM CDT [facility] Pathology/Cytology GASTRIC BIOPSY SPECIMEN / Unknown [...] Howard MD LAB - PATHOLOGY/CY TOLOGY ORDERABLES [facility] [address] [place] [address] * (ABNORMAL) CULTURE DUODENAL ASPIRATE QUANT (11/04/2015 8:42 AM CDT) Pathologist [facility] Culture 10,000-50,000 CFU/mL Viridans Streptococcus group(A) LYNNE 11/07/2015 10:32 AM CDT [facility]CRO[facility] Culture <10,000 CFU/mL Diphtheroids(A) LYNNE 11/07/2015 10:32 AM CDT [facility] Microbiology DUODENAL FLUID SPECIMEN / Unknown Collection / Unknown 11/04/2015 8:42 AM CDT 11/04/2015 1:14 PM CDT Maryanne Howard MD LAB - MICROBIOLOGY ORDERABLES Performing Organization Address [facility]/ZIP Co de Phone Number [facility]CROBIOLOGY [address] [place] [address], [facility] [phone] * GRAM STAIN SMEAR (11/04/2015 8:42 AM CDT) Pathologist [facility] Gram Stain Light Gram positive bacilli 11/05/2015 5:42 AM CDT [facility] MICROBIOLOGY Microbiology DUODENAL FLUID SPECIMEN / Unknown Collection / Unknown 11/04/2015 8:42 AM CDT 11/04/2015 1:14 PM CDT Maryanne Howard MD LAB - MICROBIOLOGY ORDERABLES Performing Organization Address City/[facility]/ZIP Co de Phone Number [facility] MICROBIOLOGY [address] [place] [address], [facility] [phone] * EGD (11/04/2015 8:22 AM CDT) Report [...] (Doctor), Vilma Casiano RN, Vy ? Deidre, Seat Cover Maker Referring MD: ?Siri Wolfe MD (Referring MD) [...] Procedure Code(s): ? --- Professional --- ? 70365, Esophagogastroduode noscopy, flexible, transoral; with biopsy, ? single or multiple ? --- Technical --- ? 37346, Esophagogastroduode noscopy, flexible, transoral; with biopsy, ? [...] ? R19.7, Diarrhea, unspecified CPT copyright 2015 [employer]. All rights reserved. The codes documented in this report are preliminary and upon remote medical coder review may be revised to meet current compliance requirements. ____ Maryanne Howard MD 11/04/2015 9:32:20 AM Number of Addenda: 0 Note Initiated On: 11/04/2015 8:22 AM [facility] 11/04/2015 8:22 AM CDT Maryanne Howard MD GI PROCEDURE ORDER MARCIA Performing Organization Address [facility] Co de Phone Number [facility] * GLUCOSE - POINT OF CARE (AMB) [facility] (10/06/2015 11:20 AM YARN BLEACHING MACHINE OPERATOR) Only the most recent of4 resultswithin the time period is included. Miriam Grajeda MD LAB - POINT OF CARE ORDERABLES Performing Organization Address [facility] Co de Phone Number [facility] * NM LUNG VENT AND PERFUSION [...] M.D. on03/09/2015 8:40 AM . Kevin Huynh DOLL REPAIRER-FLOORING SALES MANAGER DIAGNOSTIC IMAGI NG ORDERABLES * COMPLETE PFT W/WO BRONCHODILATOR (11/18/2014 11:03 AM CDT) Impressions [facility] - 11/18/2014 11:03 AM CDT [facility] DEPARTMENT OF PULMONARY, CRITICAL CARE AND SLEEP [...] interpretation by Dr. Thomas. Allen Washburn M.D. Brimming Machine Operator of Internal Medicine Division of Pulmonary, Critical Care and Sleep Medicine [facility] Narrative Procedure Note Provider, MD Alton - 01/18/2018 IMPRESSION [facility] DEPARTMENT OF PULMONARY, CRITICAL CARE AND SLEEP [...] Test 2. No comparison study is available. Barndon Thomas MD I have reviewed this study and agree with the interpretation by Dr. Thomas. Allen Washburn M.D. Brimming Machine Operator of Internal Medicine Division of Pulmonary, Critical Care and Sleep Medicine [facility] Siri Wolfe MD RESPIRATORY THERAPY ORDERABLES Performing Organization Address [facility] Co de Phone Number [facility] * LITHIUM LEVEL (10/01/2014 9:10 PM YARN BLEACHING MACHINE OPERATOR) Only the most recent of14 resultswithin the time period is included. Ethridge, trough 0.6 0.5 - 1.5 mmol/L [facility] Blood specimen (specimen) BLOOD SPECIMEN / Unknown 10/01/2014 9:10 PM YARN BLEACHING MACHINE OPERATOR 10/01/2014 10:28 PM YARN BLEACHING MACHINE OPERATOR Víctor Lacey MD LAB - CHEMISTRY O RDERALIDA Performing Organization Address [facility] [[email or web address]] de Phone Number [address] [phone] * CK + CKMB PANEL (2014 4:35 AM YARN BLEACHING MACHINE OPERATOR) CK Total 69 30 - 200 Units/L [facility] CK-MB 0.9 0.0 - 6.6 ng/mL [facility] Blood specimen (specimen) BLOOD SPECIMEN / Unknown 2014 4:35 AM YARN BLEACHING MACHINE OPERATOR 2014 8:44 AM YARN BLEACHING MACHINE OPERATOR Lisa Tavares MD LAB - CHEMISTRY [facility] Performing Organization Address [facility] [place] [place] [address], [facility] [phone] * INFLUENZA A+B PCR (08/12/2014 3:03 PM YARN BLEACHING MACHINE OPERATOR) Influenza A Non subtyped Not Detected Not Detected [facility] Influenza B Not Detected Not Detected [facility] Respiratory Syncytial Virus Not Detected Not Detected [facility] RSV B Not Detected Not Detected [facility] Nasopharyngeal NASOPHARYNGEAL SWAB / Unknown 08/12/2014 3:03 PM YARN BLEACHING MACHINE OPERATOR 08/12/2014 3:06 PM YARN BLEACHING MACHINE OPERATOR Narrative [facility] - 08/12/2014 6:32 PM YARN BLEACHING MACHINE OPERATOR Assay performed by Nucleic Acid Amplification. NOTE: ??Negative results for Influenza A, Influenza B or RSV do not preclude influenza virus or RSV infection and should not be used as the sole basis for diagnosis, treatment or patient management decisions. Historical Provider LAB - MICROBIOLOG Y ORDERABLES Performing Organization Address [facility] Co de Phone Number [address] [phone] * INFLUENZA A+B ANTIGEN RAPID (08/12/2014 3:03 PM YARN BLEACHING MACHINE OPERATOR) Influenza A Rapid Test Negative Negative [facility] Influenza B Rapid Test Negative [facility] Comment:Unable to determine, confirmatory testing in progress. Nasopharyngeal SPECIMEN FROM NASOPHARYNGEAL STRUCTURE / Unknown 08/12/2014 3:03 PM YARN BLEACHING MACHINE OPERATOR 08/12/2014 3:52 PM YARN BLEACHING MACHINE OPERATOR Narrative [facility] - 08/12/2014 3:57 PM YARN BLEACHING MACHINE OPERATOR Specimen Type->Nasopharyngeal Paul Ashraf MD LAB - MICROBIOLOGY O RDERABLES Performing Organization Address [facility]/[place] [address], [facility] [phone] * XR CHEST 2VW (08/12/2014 1:15 PM YARN BLEACHING MACHINE OPERATOR) Only the most recent of2 resultswithin the time period is included. Anatomical Region Laterality Modality Chest Other Impressions 08/12/2014 4:14 PM YARN BLEACHING MACHINE OPERATOR Impression: No acute pulmonary process. Report dictated by Dorian Blunt MD (resident). This report was approved ??by Dorian Blunt ?? on 08/12/2014 2:[address] Dom Stevenson M.D. have personally reviewed and interpreted this examination/study. This report was electronically signed by Dom BENITEZ M.D. ??on 08/12/2014 4:14 PM . Narrative 08/12/2014 4:14 PM YARN BLEACHING MACHINE OPERATOR Exam: XR CHEST PA AND LATERAL Exam [...] ORDERABLES * IRON BLOOD (08/10/2014 12:25 PM YARN BLEACHING MACHINE OPERATOR) Only the most recent of2 resultswithin the time period is included. Iron 41 40 - 150 mcg/dL [facility] Blood specimen (specimen) BLOOD SPECIMEN / Unknown 08/10/2014 12:25 PM YARN BLEACHING MACHINE OPERATOR 08/10/2014 12:36 PM YARN BLEACHING MACHINE OPERATOR Kary Currie MD LAB - CHEMISTRY OR DERABLES [address] [phone] * INFLUENZA A+B - POINT OF CARE (AMB) [facility] (08/10/2014 12:08 PM YARN BLEACHING MACHINE OPERATOR) Influenza A Rapid Test negative [facility] Influenza B Rapid Test negative [facility] 08/10/2014 12:0 8 PM YARN BLEACHING MACHINE OPERATOR Genesis Ramsey MD LAB - POINT OF CARE ORDERABLES [facility] * XR ABDOMEN KUB [...] Anatomical Region Laterality Modality Other Flavia Vaughan APRN-REFRACTORY GRINDER OPERATOR VASCULAR LAB OR DERABLES * VAS LEFT ARTERIAL DUPLEX LE (01/29/2014 1:02 PM CDT) Anatomical Region Laterality Modality Other Flavia Vaughan APRN-REFRACTORY GRINDER OPERATOR VASCULAR LAB OR DERABLES * DRUG ABUSE PANEL 10-20+ETHANOL URINE NO CONFIRM (12/19/2013 6:14 PM CDT) Only the most recent of2 resultswithin the time period is included. Amphetamines Screen Urine Negative Negative: < 1000 ng/mL [facility] Barbiturates Screen Urine Negative Negative: < 200 ng/mL [facility] Benzodiazepine Screen Urine Negative Negative: < 200 ng/mL [facility] Opiates Urine Negative Negative: < 300 ng/mL [facility] Cocaine Metabolites Urine Negative Negative: < 300 ng/mL [facility] Phencyclidine Screen Urine Negative Negative: < 25 ng/ml [facility] Cannabinoids Screen Urine Negative Negative: <50 ng/mL [facility] Methadone Screen Urine Negative Negative: < 300 ng/mL [facility] Urine specimen (specimen) 12/19/2013 6:14 PM CDT 12/19/2013 6:21 PM CDT Narrative [facility] - 12/19/2013 6:42 PM CDT The Urine Toxicology Screening Panel does not screen for Propoxyphene, Meprobamate, Carisoprodol, Trazodone, atgx-gkx-avpwlvq medications and/or volatiles (Acetone, Isopropanol, Methanol or Ethylene Glycol). Ethanol, Salicylate, Acetaminophen, Tricyclic Antidepressants and several therapeutic drugs may be individually assayed in serum or plasma specimen. Toxicology testing by the [facility] is an aid to medical diagnosis and treatment of patients. No documented chain of custody was maintained. Results are intended to be used for clinical purposes only. ? Erich Diaz MD LAB - URINE CHEMISTR Y ORDERABLES Performing Organization Address [facility] Co de Phone Number [address] [phone] * HCG URINE QUALITATIVE - POCT (IP) [facility] (12/19/2013 6:13 PM CDT) Only the most recent of2 resultswithin the time period is included. Test Urine negative [facility] Urine specimen (specimen) 12/19/2013 6:13 PM CDT Erich Diaz MD LAB - POINT OF CARE ORDERABLES Performing Organization Address [facility] [[email or web address] de Phone Number [facility] * TRICYCLICS SCREEN BLOOD (12/19/2013 6:11 PM CDT) Tricyclic Antidepressants 137 See Comment ng/mL [facility] Comment: Expected Values for Tricyclic Antidepressants: ??Pharmacokinetic [...] - CHEMISTRY [facility] Performing Organization Address [facility]/ZIP Co de Phone Number [address] [phone] * (ABNORMAL) SALICYLATE LEVEL BLOOD (12/19/2013 6:11 PM CDT) Pathologist [facility] Salicylate <5(L) 15 - 30 mg/dL [facility] Blood specimen (specimen) BLOOD SPECIMEN / Unknown 12/19/2013 6:11 PM CDT 12/19/2013 6:21 PM CDT Erich Diaz MD LAB - CHEMISTRY [facility] [address] [phone] * (ABNORMAL) ACETAMINOPHEN LEVEL (12/19/2013 6:11 PM CDT) Acetaminophen <3.0(L) 10.0 - 30.0 mcg/mL [facility] Blood specimen (specimen) BLOOD SPECIMEN / Unknown 12/19/2013 6:11 PM CDT 12/19/2013 6:21 PM CDT Erich Diaz MD LAB - CHEMISTRY [facility] Organization Address City/State/ZIP Co de Phone Number [place] [id number] [address] [phone] * XR THORACOLUMBAR SPINE 2VW (11/26/2013 2:11 [...] O RDERABLES * AMMONIA (09/24/2013 1:23 PM YARN BLEACHING MACHINE OPERATOR) Ammonia 27 11 - 64 umol/L [facility] Plasma specimen (specimen) 09/24/2013 1:23 PM YARN BLEACHING MACHINE OPERATOR 09/24/2013 1:41 PM YARN BLEACHING MACHINE OPERATOR Víctor Lacey MD LAB - CHEMISTRY O RDERALIDA Performing Organization Address [facility] Co de Phone Number [address] [phone] * HEPATITIS C ANTIBODY (09/24/2013 1:23 PM YARN BLEACHING MACHINE OPERATOR) Pathologist [facility] Hepatitis C Antibody NONREACTIVE NONREACTIVE [facility] Comment: Anti-HCV screen indicates no serologic evidence of past or current infection with Hepatitis C Virus. Patients with unexplained liver disease who are immunocompromised or suspected of having acute Hepatitis C infection may benefit from Nucleic Acid Test (CHASE) for Hepatitis C Viral RNA to confirm Hepatitis C status. 09/24/2013 1:23 PM YARN BLEACHING MACHINE OPERATOR 09/24/2013 1:40 PM YARN BLEACHING MACHINE OPERATOR Víctor Lacey MD LAB - CHEMISTRY O RDERABLES Performing Organization Address [facility] Co de Phone Number [address] [phone] * FL UGI W SM BOWEL FOLLOW THRU (09/08/2013 12:36 PM YARN BLEACHING MACHINE OPERATOR) Anatomical Region Laterality Modality Abdomen Other Impressions 09/08/2013 12:55 PM YARN BLEACHING MACHINE OPERATOR Impression: Normal small bowel series. No evidence [...] 12:55 PM . Narrative 09/08/2013 12:55 PM YARN BLEACHING MACHINE OPERATOR Exam: Small Bowel Follow . Exam Date: [...] (ABNORMAL) BLOOD GASES ART (09/06/2013 12:00 AM YARN BLEACHING MACHINE OPERATOR) pH Arterial 7.34(L) 7.35 - 7.45 [facility] pCO2 Arterial 50(H) 35 - 45 mmHg [facility] pO2 Arterial 125(H) 77 - 101 mmHg [facility] HCO3 Arterial 26.5(H) 22 - 26 mEq/L [facility] TCO2 Arterial 28.0 25 - 29 mEq/L [facility] Base Excess Arterial 0.8 -2 - 2 [facility] Hemoglobin Arterial 11.2(L) 12.0 - 15.5 g/dL [facility] Oxyhemoglobin Arterial 96.7 95.0 - 100.0 % [facility] Carboxyhemoglobin 1.2 0 - 3 % [facility] Methemoglobin 1.2 0 - 2.0 % [facility] FI O2 Arterial 0 [facility] Arterial blood specimen (specimen) 09/06/2013 09/06/2013 1:22 AM YARN BLEACHING MACHINE OPERATOR Narrative [facility] - 09/06/2013 1:23 AM YARN BLEACHING MACHINE OPERATOR FIO2->0 4LNC FIo2: 0 Sergio Sutton MD LAB - BLOOD GASES OR DERABLES Performing Organization Address City/State/[facility] Co de Phone Number [facility] [address] [place] [address] * IR ANGIO EXTREMITY PROCEDURAL CODE (09/05/2013 5:34 PM YARN BLEACHING MACHINE OPERATOR) Anatomical Region Laterality Modality Other Impressions 09/05/2013 7:29 PM YARN BLEACHING MACHINE OPERATOR Impression: Left internal iliac artery angiogram demonstrated [...] 7:29 PM . Narrative 09/05/2013 7:29 PM YARN BLEACHING MACHINE OPERATOR History: 58-year-old female with history of Parkinson's [...] draped in the usual sterile fashion. A sales outfitter film of pelvis was obtained, which demonstrated [...] documented. ??Following a series of exchanges, a 5-Ghanaian vascular sheath was placed. Using a angled [...] catheterize this vessel with a Prowler 1.9 Ghanaian microcatheter, however these were unsuccessful. It was [...] draped in the usual sterile fashion. A sales outfitter film ofpelvis was obtained, which demonstrated orthopedic [...] wasdocumented. Following a series of exchanges, a 5-Ghanaian vascular sheath was placed. Using a angled [...] catheterize this vessel with a Prowler 1.9 Ghanaian microcatheter,however these were unsuccessful. It was decided [...] FL GUIDE NEEDLE PLACEMENT (09/05/2013 5:34 PM YARN BLEACHING MACHINE OPERATOR) Anatomical Region Laterality Modality Lung, Abdomen, Chest, Breast Oth er Impressions 09/05/2013 7:29 PM YARN BLEACHING MACHINE OPERATOR Impression: Left internal iliac artery angiogram demonstrated [...] 7:29 PM . Narrative 09/05/2013 7:29 PM YARN BLEACHING MACHINE OPERATOR History: 58-year-old female with history of Parkinson's [...] draped in the usual sterile fashion. A sales outfitter film of pelvis was obtained, which demonstrated [...] documented. ??Following a series of exchanges, a 5-Ghanaian vascular sheath was placed. Using a angled [...] catheterize this vessel with a Prowler 1.9 Ghanaian microcatheter, however these were unsuccessful. It was [...] draped in the usual sterile fashion. A sales outfitter film ofpelvis was obtained, which demonstrated orthopedic [...] wasdocumented. Following a series of exchanges, a 5-Ghanaian vascular sheath was placed. Using a angled [...] catheterize this vessel with a Prowler 1.9 Ghanaian microcatheter,however these were unsuccessful. It was decided [...] IR ANGIO EXTREMITY LEFT (09/05/2013 5:34 PM YARN BLEACHING MACHINE OPERATOR) Anatomical Region Laterality Modality Lower Extremity, Upper Extremity Other Impressions 09/05/2013 7:29 PM YARN BLEACHING MACHINE OPERATOR Impression: Left internal iliac artery angiogram demonstrated [...] 7:29 PM . Narrative 09/05/2013 7:29 PM YARN BLEACHING MACHINE OPERATOR History: 58-year-old female with history of Parkinson's [...] draped in the usual sterile fashion. A sales outfitter film of pelvis was obtained, which demonstrated [...] documented. ??Following a series of exchanges, a 5-Ghanaian vascular sheath was placed. Using a angled [...] catheterize this vessel with a Prowler 1.9 Ghanaian microcatheter, however these were unsuccessful. It was [...] draped in the usual sterile fashion. A sales outfitter film ofpelvis was obtained, which demonstrated orthopedic [...] wasdocumented. Following a series of exchanges, a 5-Ghanaian vascular sheath was placed. Using a angled [...] catheterize this vessel with a Prowler 1.9 Ghanaian microcatheter,however these were unsuccessful. It was decided [...] ORDERABLES * AMYLASE BLOOD (09/05/2013 12:20 PM YARN BLEACHING MACHINE OPERATOR) Amylase 39 25 - 125 Units/L [facility] Serum 09/05/2013 12:2 0 PM YARN BLEACHING MACHINE OPERATOR 09/05/2013 12:38 PM YARN BLEACHING MACHINE OPERATOR Narrative [facility] - 09/05/2013 1:06 PM YARN BLEACHING MACHINE OPERATOR IS PATIENT ON HEPARIN? (Y OR N) N Sergio Sutton MD LAB - CHEMISTRY [facility] [address] [phone] * CYTOLOGY URINE (05/07/2013 12:00 PM CDT) Urine specimen (specimen) 05/07/2013 12:00 PM CDT Víctor Lacey MD LAB - PATHOLOGY/C YTOLOGY ORDERABLES Performing Organization Address [facility] Co de Phone Number [facility] [address] * CYTOLOGY NON-ELIGIBILITY SERVICES REPRESENTATIVE PANEL (STL) (04/25/2013 7:00 AM CDT) Clinical Information [facility] ([facility]) Comment: Information not provided BKA, CT(ASCP) Sampson [...] INCORRECT, PLEASE CONTACT CLIENT SERVICES. PHONE NUMBER: [phone] Test Performed at: [employer] [address] ??[phone] SHERIF MEJIA DO, MPH 04/25/2013 7:00 AM CDT 04/24/2013 4:36 AM CDT Rodrigo Valles MD LAB - PATHOLOGY/CYTO LOGY ORDERABLES Performing Organization Address [facility] Co de Phone Number [facility] ([facility]) * CT CYSTOGRAM (03/15/2013 9:07 AM CDT) Anatomical Region Laterality Modality Pelvis Other Impressions 03/15/2013 3:36 PM CDT Impression: 1. No CT evidence of contrast extravasation to represent a fistulous tract. No filling defect is identified within the bladder to represent mass. This report was dictated by Win Govea MD (microarray operations vice president) IDr. Dom M.D. have personally reviewed and [...] report was dictated by Win Govea MD (microarray operations vice president) IDr. Dom M.D. have personally reviewed and [...] T3 Free 3.1 1.7 - 3.7 pg/mL [facility] Venous blood specimen (specimen) 01/28/2013 12:05 PM CDT 01/28/2013 1:42 PM CDT Historical Provider LAB - CHEMISTRY O RDERABLES [address] [phone] * CCL LT HEART CATH W CORONARY WO LV GRAM (11/04/2012 12:00 AM CDT) Anatomical Region Laterality Modality X-Ray Angiograph y 11/04/2012 Alen Olivas MD CARDIAC SALES ENABLEMENT ANALYST RAD IANT * PATHOLOGY TISSUE FOR DERMATOLOGY (10/31/2012 1:33 PM CDT) Result CASE: [id number] PATIENT: IVONNE VERA PATHOLOGIC DIAGNOSIS: Central upper [...] Yadi Ramos M.D. Electronically signed 11/04/2012 11:05:56AM [facility] Comment: Performed at: Dermatopathology Laboratory [facility] Department of Dermatology [address] [facility] [place] [address] Phone number: [phone] Toll Free: [phone] FAX: [phone] Skin (tissue) specimen (specimen) 10/31/2012 1:33 PM CDT 11/01/2012 Narrative [facility] - 11/07/2012 7:46 AM CDT Specimen A: Type->Shave ?Site->central upper back ?History->4mm soft exophytic pink papule with history of irritation ?Impression->inflamed nevus vs acrochordon r/o BCC ?Check Margins:->N/A ?Prior Biopsy->N/A Daryl Gallardo MD LAB - PATHOLOGY/CYTO LOGY ORDERABLES [facility] [address] [facility]. 5th [place] [address], [facility] [phone] * ECHO DOPPLER ONLY (07/30/2012 12:00 AM YARN BLEACHING MACHINE OPERATOR) Anatomical Region Laterality Modality Other 07/30/2012 Kerwin Cedillo MD ECHOCARDIOGRAPHY RAD IANT * HOLTER MONITOR (07/12/2012 7:50 AM YARN BLEACHING MACHINE OPERATOR) Narrative [facility] - 07/12/2012 7:50 AM YARN BLEACHING MACHINE OPERATOR Ivonne Vera underwent cardiac monitoring with a [...] Serafin Webb CD CARDIAC SERVICES ORD ERABLES [facility] * NM BRAIN IMAGING SPECT (01/18/2012 [...] is included. 01/31/2011 2:[address] [facility] - 01/31/2011 2:46 PM CDT Kary Currie MD LAB - PATHOLOGY/CY TOLOGY ORDERABLES [facility] * NEURONAL NUCLEAR ANTIBODY IGG (01/24/2011 12:20 PM CDT) FREDDIE-1 (Anti-Hu) Negative Negative [facility] FREDDIE-2 (Anti Ri) Negative Negative [facility] Comment: TEST INFORMATION: Neuronal Abs (Hu,Ri,Yo,Amphiphysin) IgG, by Immunoblot Anti-Hu, type I anti-neuronal nuclear (FREDDIE-1) is associated with small cell lung cancer. Anti-Ri, type II anti-neuronal nuclear (FREDDIE-2) is associated with neuroblastoma (children) and fallopian tube or breast cancer (adults). Anti-Yo, anti-purkinje cell cytoplasmic antibodies (PCCA or [employer]-1) is associated with ovarian and breast carcinomas. [...] test uses a kit designated by the packaging sales consultant as for research use, not for clinical use. The performance characteristics of this test were validated by [employer]. The U.S. Food and Drug Administration (FDA) has not approved or cleared this test. The results are not intended to be used as the sole means for clinical diagnosis or patient management decisions. [facility] is authorized under Clinical Laboratory Improvement Amendments (CLIA) and by all states to perform high-complexity testing. Anti-Yo Antibody Negative Negative [facility] Amphiphysin Negative Negative [facility] Serum 01/24/2011 12:2 0 PM CDT 01/24/2011 1:14 PM CDT Narrative [facility] - 01/27/2011 3:23 PM CDT Preferred Lab:->[facility] Connor Higgins MD LAB - SEROLOGY ORDER MARCIA Performing Organization Address City/[facility]/ZIP Co de Phone Number [address] [phone] * GLUTAMIC ACID DECARBOXYLASE (AMISH) ANTIBODY (01/24/2011 12:20 PM CDT) Glutamic Acid Decarboxylase Antibody < 1.0 0.0 - 1.5 U/mL [facility] Comment: Performed at: ?? - [facility] ??[id number] [employer] Custodian: Sherif Gonzalez MD, Phone: ??[phone] 01/24/2011 12:2 0 PM CDT 01/24/2011 1:14 PM CDT Connor Higgins MD LAB - SEROLOGY ORDER MARCIA Performing Organization Address City/[facility]/ZIP Co de Phone Number [address] [phone] * PATHOLOGY/GENETICS HISTORICAL-ONBASE (11/01/2010) Only the most recent of2 resultswithin the time period is included. 11/01/2010 Siri Wolfe MD LAB - CHEMISTRY ORDE SELENA Performing Organization Address [facility] Co de Phone Number [facility] * MICROALBUMIN URINE RANDOM (08/01/2010 11:24 AM YARN BLEACHING MACHINE OPERATOR) Albumin Random Urine < 0.3 mg/dL [facility] Comment:REFERENCE RANGE: NON E ESTABLISHED FOR RANDOM URINE SPECIMENS. 08/01/2010 11:2 4 AM YARN BLEACHING MACHINE OPERATOR 08/01/2010 12:07 PM YARN BLEACHING MACHINE OPERATOR Víctor Lacey MD LAB - URINE CHEMI STRY ORDERABLES Performing Organization Address [facility] [[email or web address]] de Phone Number [address] [phone] * RPR (10/26/2009 12:16 PM CDT) RPR NONREACTIVE NONREACTIVE [facility] Venous blood specimen (specimen) 10/26/2009 12:16 PM CDT 10/26/2009 1:23 PM CDT Narrative [facility] - 10/27/2009 4:03 PM CDT Preferred Lab:->[facility] Marilyn Meza MD LAB - CHEMISTRY ORD MARYCARMEN Performing Organization Address [facility] Co de Phone Number [address] [phone] * HIV-1 ANTIBODY (10/26/2009 12:16 PM CDT) HIV Antibody NON REACTIVE NONREACTIVE [facility] Comment: ? ATTENTION ANY TELEPHONE INQUIRIES REGARDING THIS TEST RESULT MUST BE DIRECTED TO THE CORE LAB CHEMISTRY DEPARTMENT AT [phone], SUNDAY-SUNDAY BETWEEN THE HOURS OF [phone] AND [phone]. 10/26/2009 12:1 6 PM CDT 10/26/2009 1:23 PM CDT Marilyn Meza MD LAB - CHEMISTRY ORD ERABLES [facility] [address] [place] [address], [facility] [phone] Care Teams Equity Research Analyst Relationship Specialty Start Date End Date Jen Kam, DOLL REPAIRER-FLOORING SALES MANAGER [address] [facility] [address] [place] [phone] PCP - General Nurse Practitioner 11/09/21 Jose Elias Samaniego, RN 06/04/17 Erich Huggins MD [address] [facility] [address] [place] [address] Cardiology 01/14/22 Abigail Thibodeaux MD [address] [place] [address] Psychiatry 01/14/22 Alen Cox MD [address] [facility] [address], [facility] [address] Urology 01/14/22 Mindy Salgado, PA-C [address] [place] [id number] Physician Seal Skinner Gastroenterology 01/14/22 Connor Higgins MD [address] [place] [phone] Neurology 01/14/22
--- OUTSIDE RECORDS SUMMARY | 2024-09-04 19:10 | XMS_ITS | Encounter Summary ---
Author Organization [facility] Address [address] [facility] [place] [address] Care Team Providers Care Flour Mixer Helper Name Role Phone Jose Elias Samaniego RN Unavailable Unavailab Erica Tiwari INTERCHANGE AGENT-[employer] Primary Care Provi leonard Yamileth Franks INTERCHANGE AGENT-[employer] Primary Care Provider [phone] Jen Kam INTERCHANGE AGENT-[employer] Primary Care Provider Pedro Cordero MD Unavailable [phone] Abigail Thibodeaux MD Unavailable Dutch (Cc)Mindy Unavailable Unavailable Alen Cox MD Unavailable Mindy Salgado PA-C Unavailable Connor Higgins MD Unavailable Reason for Visit * Reason Onset Date Comments Results 06/11/2018 Encounter Details Date Type Department Care Team (Late st Contact Info) Description 06/11/2018 Telephone [facility] [address] [place] [address] Christopher Blair DO [address] [place] [address] Results Social History Tobacco Use Types Packs/Day Years Used Date Smoking Tobacco: Former Cigarettes 1 30 0 1975 - 2005 Smokeless Tobacco: Former Comments:quit 7 years ago Alcohol Use Standard Drinks/Week Comments Yes 0 (1 standard drink = 0.6 oz pur e alcohol) occassional drinker Sex and Gender Information Value Date Recorded Sex Assigned at Female 10/22/2021 5:54 AM SUBSTATION MAINTENANCE TECHNICIAN Gender Identity Female 10/22/2021 5:54 AM SUBSTATION MAINTENANCE TECHNICIAN Sexual Orientation Not on file documented as [...] st Contact Info) Description 09/17/2024 3:00 PM SUBSTATION MAINTENANCE TECHNICIAN Office Visit [facility] - Neurology [address] [place] [address], [place] [phone] Connor Higgins MD [address] [place] [address] [place] [address] documented as of this encounter Visit Diagnoses Diagnosis 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 in this encounter Care Teams Flour Mixer Helper Relationship Specialty Start Date End Date Erica Reno APRN-VACUUM SYSTEM TESTER PCP - General 02/06/18 09/26/21 Yamileth Franks APRN-VACUUM SYSTEM TESTER [address] [place] [phone] PCP - General 09/27/21 11/08/21 Jen Kam APRN-VACUUM SYSTEM TESTER [address] [place] [address] [place] [phone] PCP - General Nurse Practitioner 11/09/21 Jose Elias Samaniego, RN 06/04/17 Pedro Cordero MD [address] [place] [address] [place] [address] Cardiology 01/14/22 Abigail Thibodeaux MD [address] [place] [address] Psychiatry 01/14/22 Dutch (Cc), Mindy Gastroenterology 01/14/22 01/14/22 Alen Cox MD [address] [facility] [address], [place] [address] Urology 01/14/22 Mindy Salgado PA-C [address] [place] [address] Physician Solder Cream Maker Gastroenterology 01/14/22 Connor Higgins MD [address] [place] [address] Neurology 01/14/22 documented as of this encounter
--- OUTSIDE RECORDS SUMMARY | 2024-09-04 19:10 | XMS_ITS | Encounter Summary ---
Author Organization [facility] Address [address] [facility] [place] [address] Care Team Providers Care Steamer Gum Candy Name Role Phone Jose Elias Samaniego RN Unavailable Unavailab Erica Tiwari DELICATESSEN STORE MANAGER-SUPERINTENDENT [employer]MINAL Primary Care Provi leonard Yamileth Franks DELICATESSEN STORE MANAGER-SUPERINTENDENT [employer] Primary Care Provider [phone] Jen Kam DELICATESSEN STORE MANAGER-[facility] Primary Care Provider Pedro Cordero MD Unavailable [phone] Abigail Thibodeaux MD Unavailable Dutch (Cc)Mindy Unavailable Unavailable Alen Cox MD Unavailable Mindy Salgado PA-C Unavailable Connor Higgins MD Unavailable Reason for Visit * Reason Onset Date Comments MEDICATION REFILL 09/26/2019 Encounter Details Date Type Department Care Team (Late st Contact Info) Description 09/26/2019 Refill [facility] [address] [place] [place] [address] Erica Reno, DELICATESSEN STORE MANAGER-SUPERINTENDENT [employer] [address] DIV OF [place] [address] MEDICATION REFILL Social History Tobacco Use Types [...] Sex Assigned at Female 10/22/2021 5:54 AM MIXER FOAM RUBBER Gender Identity Female 10/22/2021 5:54 AM MIXER FOAM RUBBER Sexual Orientation Not on file documented as [...] Alma Lennon RN - 09/26/2019 2:21 PM MIXER FOAM RUBBER Reordered R FOAM RUBBER documented in this encounter Plan of Treatment Upcoming Encounters Date Type Department Care Team (Late st Contact Info) Description 09/17/2024 3:00 PM MIXER FOAM RUBBER Office Visit [facility] - Neurology [address] [place] [address], [facility] [place] [address] Connor Higgins MD [address] [place] [address] [place] [address] documented as of this encounter [...] on filedocumented in this encounter Care Teams Steamer Gum Candy Relationship Specialty Start Date End Date Erica Reno, DELICATESSEN STORE MANAGER-SUPERINTENDENT MARINE O[employer] TERMINAL PCP - General 02/06/18 09/26/21 Yamileth Franks, DELICATESSEN STORE MANAGER-[facility] [address] [place] [address] PCP - General 09/27/21 11/08/21 Jen Kam, DELICATESSEN STORE MANAGER-[facility] [address] [facility] [address] [place] [address] PCP - General Nurse Practitioner 11/09/21 Jose Elias Samaniego, RN 06/04/17 Pedro Cordero MD [address] [facility] [address] [place] [address] Cardiology 01/14/22 Abigail Thibodeaux MD [address] [place] [address] Psychiatry 01/14/22 Dutch (Cc)Mindy Gastroenterology 01/14/22 01/14/22 Alen Cox MD [address] [facility] [address] [place], [facility] [place] [address] Urology 01/14/22 Mindy Salgado PA-C [address] DIV [place] [address] Physician Bureau Chief Gastroenterology 01/14/22 Connor Higgins MD [address] [place] [address] Neurology 01/14/22 documented as of this encounter
--- OUTSIDE RECORDS SUMMARY | 2024-09-04 19:10 | XMS_ITS | Encounter Summary ---
Author Organization [facility] Address [address] [place] [address] Care Team Providers Care Fabric Lay Out Worker Name Role Phone Jose Elias Samaniego RN Unavailable Unavailab Erica Tiwari [facility] Primary Care Provi leonard Yamileth Franks [facility] Primary Care Provider [phone] Jen Kam [facility] Primary Care Provider Pedro Cordero MD Unavailable [phone] Abigail Thibodeaux MD Unavailable Dutch (Cc)Mindy Unavailable Unavailable Alen Cox MD Unavailable Mindy Salgado PA-C Unavailable Connor Higgins MD Unavailable Encounter Details Date Type Department Care Team (Late st Contact Info) Description 07/04/2019 Telephone [employer] [address] [place] [address] Víctor Lacey MD [address] DEPT OF PSYCHIATRY & [place] [address] Social History Tobacco Use Types [...] Sex Assigned at Female 10/22/2021 5:54 AM RURAL HEALTH CONSULTANT Gender Identity Female 10/22/2021 5:54 AM RURAL HEALTH CONSULTANT Sexual Orientation Not on file documented [...] give her a call back kaelyn. PT CBN:[phone] L HEALTH CONSULTANT documented in this encounter Plan of Treatment Upcoming Encounters Date Type Department Care Team (Late st Contact Info) Description 09/17/2024 3:00 PM RURAL HEALTH CONSULTANT Office Visit [facility] - Neurology [address] [place] [address], [facility] [place] [address] Connor Higgins MD [address] [place] [address] [place] [address] documented as of this encounter Goals Goal [...] on filedocumented in this encounter Care Teams Fabric Lay Out Worker Relationship Specialty Start Date End Date Erica Reno, [facility] PCP - General 02/06/18 09/26/21 Yamileth Franks, [facility] [address] [place] [address] PCP - General 09/27/21 11/08/21 Jen Kam, [facility] [address] [facility] 205 [place] [address] PCP - General Nurse Practitioner 11/09/21 Jose Elias Samaniego, RN 06/04/17 Pedro Cordero MD [address] [facility] 1[address] [place] [address] Cardiology 01/14/22 Abigail Thibodeaux MD [address] [place] [address] Psychiatry 01/14/22 Dutch (Cc)Mindy Gastroenterology 01/14/22 01/14/22 Alen Cox MD 49[address] [facility] [address], [place] [address] Urology 01/14/22 Mindy Salgado PA-C [address] [place] [address] Physician Drafter Tool Design Gastroenterology 01/14/22 Connor Higgins MD [address] [place] [address] Neurology 01/14/22 documented as of this encounter
--- OUTSIDE RECORDS SUMMARY | 2024-09-04 19:10 | XMS_ITS | Clinical Summary ---
Author Organization [facility] Address [facility]. [place], [place] [address] [place] [address] Care Team Providers Care Volunteer Patient Representative Name Role Phone Erica Rneo NP Primary Care Provider [phone] Pedro Cordero MD Unavailable [phone] Danika Higgins MD Unavailable [phone] Allergies Active Allergy Reactions Criticality Noted [...] this topic Medical Devices Implanted Type Area Internal Carver Device Identifier Shelf Expiration Date Model / Serial / Lot Knee Components Knee Components Lens Lens Insurance MEDICAID MEDICARE Care Teams Volunteer Patient Representative Relationship Specialty Start Date End Date Erica Reno MARKETING AND PUBLIC RELATIONS MANAGER [address] OF [facility] [place] [address] PCP - General NURSE PRACTITIONER 11/30/22 Pedro Cordero MD [address] [facility] 1120 [place] [address] INTERNAL MEDICINE 11/30/22 Danika Higgins MD [address] [facility] [address] [place] [address] NEUROLOGY 11/30/22
--- OUTSIDE RECORDS SUMMARY | 2024-09-04 19:10 | XMS_ITS | Encounter Summary ---
Author Organization [facility] Address [address] [facility] [place] [address] Care Team Providers Care Scoring Machine Operator Name Role Phone Jose Elias Samaniego RN Unavailable Unavailab Erica Tiwari [facility] Primary Care Provi leonard Yamileth Franks [facility] Primary Care Provider [phone] Jen Kam [facility] Primary Care Provider Pedro Cordero MD Unavailable [phone] Abigail Thibodeaux MD Unavailable Dutch (Cc)Mindy Unavailable Unavailable Alen Cox MD Unavailable Mindy Salgado PA-C Unavailable Connor Higgins MD Unavailable Encounter Details Date Type Department Care Team (Late st Contact Info) Description 05/09/[address] [facility] [employer] [facility] [address] [place] [address] Vanesa Hinojosa MD 1 [place] [address] Social History Tobacco Use Types Packs/Day Years [...] Sex Assigned at Female 10/22/2021 5:54 AM CONTRACTING SPECIALIST Gender Identity Female 10/22/2021 5:54 AM CONTRACTING SPECIALIST Sexual Orientation Not on file COVID-19 Exposure [...] the ready. Thanks. Patient Call Back number: [phone] documented in this encounter Plan of Treatment Upcoming Encounters Date Type Department Care Team (Late st Contact Info) Description 09/17/2024 3:00 PM CONTRACTING SPECIALIST Office Visit [facility] - Neurology [address] [place] [phone] Connor Higgins MD [address] [place] [address] documented as of this encounter [...] on filedocumented in this encounter Care Teams Scoring Machine Operator Relationship Specialty Start Date End Date Erica Reno [facility] PCP - General 02/06/18 09/26/21 Yamileth Franks, [facility] 1225 [place] [address] PCP - General 09/27/21 11/08/21 Jen Kam [facility] [address] [facility] 205 [place] [phone] PCP - General Nurse Practitioner 11/09/21 Jose Elias Samaniego, RN 06/04/17 Pedro Cordero MD [address] [facility] 1120 [place] [address] Cardiology 01/14/22 Abigail Thibodeaux MD [address] [place] [address] Psychiatry 01/14/22 Dutch (Cc)Mindy Gastroenterology 01/14/22 01/14/22 Alen Cox MD 49[address] [facility] [address], [place] [address] Urology 01/14/22 Mindy Salgado PA-C [address] [place] [address] Physician Senior It Business Analyst Gastroenterology 01/14/22 Connor Higgins MD [address] [place] [address] Neurology 01/14/22 documented as of this encounter
--- OUTSIDE RECORDS SUMMARY | 2024-09-04 19:10 | XMS_ITS | Encounter Summary ---
Author Organization [facility] Address [address] [facility] [place] [address] Care Team Providers Care Shrimp Picker Name Role Phone Jose Elias Samaniego RN Unavailable Unavailab Erica Tiwari [facility] Primary Care Provi leonard Yamileth Franks TRAFFIC ANALYSIS TECHNICIAN-[facility] Primary Care Provider [phone] Jen Kma TRAFFIC ANALYSIS TECHNICIAN-[facility] Primary Care Provider Pedro Cordero MD Unavailable [phone] Abigail Thibodeaux MD Unavailable Dutch (Cc)Mindy Unavailable Unavailable Alen Cox MD Unavailable Mindy Salgado PA-C Unavailable Connor Higgins MD Unavailable Reason for Visit * Reason Onset Date Comments MEDICATION REFILL 11/06/2018 Encounter Details Date Type Department Care Team (Late st Contact Info) Description 11/06/2018 Refill [facility] [address] [place] [address] Connor Higgins MD [address] [place] [place] [address] MEDICATION REFILL Social History Tobacco Use Types Packs/Day Years Used Date Smoking Tobacco: Former Cigarettes 1 30 0 1975 - 2005 Smokeless Tobacco: Former Comments:quit 7 years ago Alcohol Use Standard Drinks/Week Comments Yes 0 (1 standard drink = 0.6 oz pur e alcohol) occassional drinker Sex and Gender Information Value Date Recorded Sex Assigned at Female 10/22/2021 5:54 AM [employer]ESI[employer]Y INTERNSHIP Gender Identity Female 10/22/2021 5:54 AM [employer]ESIOLOGY INTERNSHIP Sexual Orientation Not on file documented as [...] st Contact Info) Description 09/17/2024 3:00 PM KINESIOLOGY INTERNSHIP Office Visit [facility] Neu[facility] [address] [place] [address], [place] [address] Connor Higgins MD [address] [place] [address] [place] [address] documented as of this encounter Visit Diagnoses Not on filedocumented in this encounter Care Teams Shrimp Picker Relationship Specialty Start Date End Date Erica Reno APRN-SHELLACKER PCP - General 02/06/18 09/26/21 Yamileth Franks APRN-SHELLACKER [address] [place] [address] PCP - General 09/27/21 11/08/21 Jen Kam TRAFFIC ANALYSIS TECHNICIAN-SHELLACKER [address] [place] [address] [place] [address] PCP - General Nurse Practitioner 11/09/21 Jose Elias Samaniego, RN 06/04/17 Pedro Cordero MD [address] [place] [address] [place] [address] Cardiology 01/14/22 Abigail Thibodeaux MD [address] [place] [address] Psychiatry 01/14/22 Dutch (Cc), Mindy Gastroenterology 01/14/22 01/14/22 Alen Cox MD [address] [facility] [place] [address] Urology 01/14/22 Mindy Salgado, PAHodaC [address] [place] [address] Physician Lead Bi Developer Gastroenterology 01/14/22 Connor Higgins MD [address] [place] [address] Neurology 01/14/22 documented as of this encounter
--- OUTSIDE RECORDS SUMMARY | 2024-09-04 19:10 | XMS_ITS | Clinical Summary ---
Author Organization [facility] Address [address] [place] [address] Care Team Providers Care Toy Parts Former Supervisor Name Role Phone Erica Reno NP Primary [...] N/V. Assessment & Plan (09/01/2021 11:19 AM COAL HANDLING SUPERVISOR): -Hx of stones in the past. Reports she had 3-4 stones removed with [facility] but 2mm stone remained. -Patient is very interested in having stone removed to see if this will help with reduction of infections. PLAN: -Will discuss with urologist; however, given length of UTI's occurring since she was a child, unsure if this would help to reduce. Atrial flutter ([facility]) 06/30/2021 Overview (09/01/2021): Last Assessment [...] medication. Assessment & Plan (09/01/2021 11:20 AM COAL HANDLING SUPERVISOR): -Has had cysto 03/2021 and CTU 04/2021. [...] 07/11/2016 Female hypogonadism 06/24/2016 Bipolar 2 disorder ([facility]) 01/15/2016 Glaucoma of both eyes 10/15/2015 Type 2 diabetes mellitus with hyperglycemia ([facility]) 07/15/2015 Essential hypertension 01/11/2015 Overview (09/01/2021): Last Assessment & Plan: Stable off HCTZ continue metoprolol 50mg BID. Would address UTI before resuming HCTZ. BP controlled in clinic, BP log and [email or web address] message in 1-2 weeks. 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 T12 compression fracture 09/09/2013 Parkinson's disease 06/04/2013 Coronary artery disease invo lving [place] coronary artery of [place] heart 11/04/2012 Cystocele 03/15/2011 Rectocele 03/15/2011 Urge incontinence 03/15/2011 Assessment & Plan (09/01/2021 10:54 AM COAL HANDLING SUPERVISOR): -Previously on myrbetriq but stopped due to [...] on file Legal Sex Female 2:03 AM COAL HANDLING SUPERVISOR Gender Identity Female 09/01/2021 10:01 AM COAL HANDLING SUPERVISOR Sexual Orientation Not on file Obstetrics History [...] history exists Medical Devices Implanted Type Area Tree Planter Device Identifier Shelf Expiration Date Model / Serial / Lot Total Joint Other - see comments Right: Knee Neck Fusion Other - see comments Neck Explanted Type Area Tree Planter Device Identifier Shelf Expiration Date Model / Serial / Lot [employer] [id number] Universa 6fr 24cm Radiopaque Graduate Firm Monofilament Tether - [id number] Implanted:Qty: 1 on 11/16/2021 by Alen Cox MD at [facility] Explanted:Qty: 1 on 11/17/2021 Left: [employer] 07/05/2024 [id number] / / [id number] Procedures Procedure Name Priority Date/Time Associated Diagnosis [...] was last reviewed 2021. Testing performed by: [facility], [address] [place] [address]., [id number] Blood 02/15/2022 10:0 8 AM CDT 02/15/2022 10:27 AM CDT us Alen Cox MD LAB BLOOD ORDERABLES Final Resul t Performing Organization Address [facility] de Phone Number [facility] [employer] [place] [address] * (ABNORMAL) Hemoglobin A1c (11/19/2021 [...] children were not included. ?? (Diabetes Care 31:4455-9991, 2007). ??The eAG is not equivalent to a fasting glucose. Blood 11/19/2021 4:26 AM CDT 11/19/2021 4:51 AM CDT us Hawa Garcia DO LAB BLOOD ORDERABLES Final Re sult Performing Organization Address [facility] Co de Phone Number [facility] [address] [facility] [employer] [place] [address] * Screening Mammogram W Varun (05/31/2016 9:20 AM CDT) Anatomical Region Laterality Modality Breast N/A Mammography 05/31/2016 9:20 AM CDT Narrative 06/01/2016 1:07 PM CDT ERICH MCCOY M.D. FINAL REPORT ACC# ??Date Time ??Exam [id number] May 31, 2016 09:20:00 [facility] [id number] Bilateral screen w varun ?? Technologist(s): Corina Kim; ; EXAMINATION: ??Mammogram Technique: Bilateral Full-Field Digital Screening Mammogram and Digital Breast Tomosynthesis were performed. ??Views obtained: ??bilateral craniocaudal and bilateral mediolateral oblique. ??Computer Aided Detection of the 2D images was performed with Superbly.3 version 9.3. Mammogram Findings: The present examination has been compared to prior imaging studies performed at [facility] on 03/25/2015 and 02/16/2012, and at [facility] [address] on 01/26/2014. There are scattered areas of fibroglandular density. There is no suspicious abnormality in either breast. IMPRESSION: ??Annual screening mammography is recommended. OVERALL FINAL ASSESSMENT: BI-RADS CATEGORY 1: ??Negative. Requested By: Dictated By: ?? ERICH MCCOY M.D. ??on Jun 01 2016 ??1:07P This document has been electronically signed by: ERICH MCCOY M.D. on Jun 01 2016 ??1:07P [id number] Procedure Note Provider, MD [place] - 12/20/2016 ERICH MCCOY M.D. FINAL REPORT ACC# Date Time Exam [id number] May 31, 2016 09:20:00 [facility] [place] [id number] Bilateral screen w varun Technologist(s): Corina Kim; ; EXAMINATION: Mammogram Technique: Bilateral Full-Field Digital Screening Mammogram and Digital Breast Tomosynthesis were performed. Views obtained: bilateral craniocaudaland bilateral mediolateral oblique. Computer Aided Detection of the 2Dimages was performed with Superbly.3 version 9.3. Mammogram Findings: The present examination has been compared to prior imaging studies performed at [facility] on 03/25/2015 and 02/16/2012, and at [facility] [address] on 01/26/2014. There are scattered areas of fibroglandular density. There is no suspicious abnormality in either breast. IMPRESSION: Annual screening mammography is recommended. OVERALL FINAL ASSESSMENT: BI-RADS CATEGORY 1: Negative. Requested By: Dictated By: ERICH MCCOY M.D. on Jun 01 2016 1:07P This document has been electronically signed by: ERICH MCCOY M.D. on Jun 01 2016 1:07P [id number] us Historical Provider MD [facility] MAMMO PROCEDURES Jacqueline l Result from Last 3 Months or Most Recently Relevant to Health Maintenance Insurance MEDICARE IDPA IDUT Care Teams Toy Parts Former Supervisor Relationship Specialty Start Date End Date Erica Reno NP [address] [place] [address] PCP - General Nurse Practitioner 07/04/21
--- OUTSIDE RECORDS SUMMARY | 2024-09-04 19:10 | XMS_ITS | Encounter Summary ---
Author Organization [facility] Address [address] [facility] [place] [address] Care Team Providers Care Cargo Worker Name Role Phone Jose Elias Samaniego RN Unavailable Unavailab Jen Toro AIRWAY CONTROLLER-TRANSFUSION AIDE Primary Care Provider Pedro Cordero MD Unavailable [phone] Abigail Thibodeaux MD Unavailable Alen Cox MD Unavailable Mindy Salgado PA-C Unavailable Connor Higgins MD Unavailable Reason for Visit * Reason Onset Date Comments MEDICATION REFILL 06/14/2022 Encounter Details Date Type Department Care Team (Late st Contact Info) Description 06/14/2022 Refill [facility] [address] [facility] [address] [place] [address] Jen Kam, AIRWAY CONTROLLER-TRANSFUSION AIDE [address] [facility] [address] [place] [address] MEDICATION REFILL Social History Tobacco [...] Sex Assigned at Female 10/22/2021 5:54 AM DOCUMENT PROCESSOR Gender Identity Female 10/22/2021 5:54 AM DOCUMENT PROCESSOR Sexual Orientation Not on file COVID-19 Exposure [...] st Contact Info) Description 09/17/2024 3:00 PM DOCUMENT PROCESSOR Office Visit [facility] Neurology [address] [place] [address], [facility] [place] [address] Connor Higgins MD [address] [place] [address] [place] [address] documented as of this encounter [...] on filedocumented in this encounter Care Teams Cargo Worker Relationship Specialty Start Date End Date Jen Kam APRN-TRANSFUSION AIDE [address] [place] [address] [place] [address] PCP - General Nurse Practitioner 11/09/21 Jose Elias Samaniego, RN 06/04/17 Pedro Cordero MD [address] [facility] [address] [place] [address] Cardiology 01/14/22 Abigail Thibodeaux MD [address] [place] [address] Psychiatry 01/14/22 Alen Cox MD [address] [facility] [place], [facility] [place] [address] Urology 01/14/22 Mindy Salgado, PAHodaC [address] DIV [place] [address] Physician Riding Double Gastroenterology 01/14/22 Connor Higgins MD [address] [place] [address] Neurology 01/14/22 documented as of this encounter
--- OUTSIDE RECORDS SUMMARY | 2024-09-04 19:10 | XMS_ITS | Encounter Summary ---
Author Organization [facility] Address [address] [facility] [place] [address] Care Team Providers Care Sign Letterer Name Role Phone Jose Elias Samaniego RN Unavailable Unavailab Erica Tiwari [facility] Primary Care Provi leonard Yamileth Franks [facility] Primary Care Provider [phone] Jen Kam [facility] Primary Care Provider Pedro Cordero MD Unavailable [phone] Abigail Thibodeaux MD Unavailable Dutch (Cc)Mindy Unavailable Unavailable Alen Cox MD Unavailable Mindy Salgado PA-C Unavailable Connor Higgins MD Unavailable Reason for Visit * Reason Onset Date Comments MEDICATION REFILL 09/24/2019 Encounter Details Date Type Department Care Team (Late st Contact Info) Description 09/24/2019 Refill [facility] [address] [place] [address] Rosetta Brown APRN-MANAGER MANAGED CARE [address] [facility] [address] MEDICATION REFILL Social History Tobacco [...] Sex Assigned at Female 10/22/2021 5:54 AM CHEESE PANCAKE ROLLER Gender Identity Female 10/22/2021 5:54 AM CHEESE PANCAKE ROLLER Sexual Orientation Not on file documented as [...] st Contact Info) Description 09/17/2024 3:00 PM CHEESE PANCAKE ROLLER Office Visit [facility] Neurology [address] [place] [address], [facility] [place] [address] Connor Higgins MD [address] [place] [address] [place] [address] documented as of this encounter Goals Goal [...] (HCC) documented in this encounter Care Teams Sign Letterer Relationship Specialty Start Date End Date Erica Reno, [facility] PCP - General 02/06/18 09/26/21 Yamileth Franks, [facility] [address] [place] [address] PCP - General 09/27/21 11/08/21 Jen Kam, [facility] [address] [phone] PCP - General Nurse Practitioner 11/09/21 Jose Elias Samaniego, RN 06/04/17 Pedro Cordero MD [address] [facility] [address]120 [place] [address] Cardiology 01/14/22 Abigail Thibodeaux MD [address] [place] [address] Psychiatry 01/14/22 Dutch (Cc)Mindy Gastroenterology 01/14/22 01/14/22 Alen Cox MD [address] [place] [address] 11 [place] [address] Urology 01/14/22 Mindy Salgado PA-C [address] [facility] 3L [place] [address] Physician Blueprint Duplicator Gastroenterology 01/14/22 Connor Higgins MD [address] [facility] 1L [place] [address] Neurology 01/14/22 documented as of this encounter
--- OUTSIDE RECORDS SUMMARY | 2024-09-04 19:10 | XMS_ITS ---
Author Organization [facility] Address [address] [place] [address] [address] [place] [address] Care Team Providers Care Veterinary Livestock Inspector Name Role Phone Ivan Castellanos MD Unavailable [phone] Siri Wolfe Unavailable Unavailable Encounters Encounter Location Date Provider Diagnosis [address] [place], [place] [id number] 06/18/2024 Ivan Castellanos Plan Of Treatment Next Appt Details Provider Name:Ivan nur, 09/17/2024 01:15:00 PM, [address] [place] [address], [address], [place], [place], [id number], Progress Notes * Ivonne VERADOB:1955 (69 yo F)Acc No.[id number]:06/18/2024 Progress Notes Patient:?Ivonne VERA Provider:?Ivan Castellanos MD :1955???Age:68 Y???Sex:Female D ate:06/18/2024 [facility] [facility] Subjective: * Chief Complaints: * ??? * Medical History:? Objective: * Vitals:? Assessment: Plan: * Treatment: * Images: * Electronic signature of Zabrina Castellanos MD on 09/04/2024 at 07:09 PM CREATIVE INTERN Sign off status: Pending * Provider:?Ivan Castellanos MD Date:? 06/18/2024 Generated for Grazyna pruitt/Miranda/eTransmitting on:?09/04/2024 07:09 PM CREATIVE INTERN
--- OUTSIDE RECORDS SUMMARY | 2024-09-04 19:10 | XMS_ITS ---
Author Organization [facility] Address [address] [place] [address] [address] [place] [address] Care Team Providers Care Repairer And Checker Name Role Phone Ivan Castellanos MD Unavailable Siri Wolfe Unavailable Unavailable Encounters Encounter Location Date Provider Diagnosis [address] [place], [place] [id number] 04/16/2024 Ivan Castellanos Plan Of Treatment Next Appt Details Provider Name:Ivan nur, 09/17/2024 01:15:00 PM, [address] [place] [address], [address], [place], [place], [id number], Progress Notes * Ivonne VERADOB:1955 (69 yo F)Acc No.[id number]:04/16/2024 Progress Notes Patient:?Ivonne VERA Provider:?Ivan Castellanos MD :1955???Age:68 Y???Sex:Female D ate:04/16/2024 [facility] [facility] Subjective: * Chief Complaints: * ??? * Medical History:? Objective: * Vitals:? Assessment: Plan: * Treatment: * Images: * Electronic signature of Zabrina Castellanos MD on 09/04/2024 at 07:09 PM INTERSTATE PLANNER Sign off status: Pending * Provider:?Ivan Castellanos MD Date:? 04/16/2024 Generated for Grazyna pruitt/Miranda/eTransmitting on:?09/04/2024 07:09 PM INTERSTATE PLANNER
--- OUTSIDE RECORDS SUMMARY | 2024-09-04 19:10 | XMS_ITS | Encounter Summary ---
Author Organization [facility] Address [address] [facility] [place] [address] Care Team Providers Care Kettleman Name Role Phone Jose Elias Samaniego RN Unavailable Unavailab Erica Tiwari MOBILE GAME ENGINEER-[facility] Primary Care Provi leonard Yamileth Franks MOBILE GAME ENGINEER-[facility] Primary Care Provider [phone] Jen Kam MOBILE GAME ENGINEER-[facility] Primary Care Provider Pedro Cordero MD Unavailable [phone] Abigail Thibodeaux MD Unavailable Dutch (Cc)Mindy Unavailable Unavailable Alen Cox MD Unavailable Mindy Salgado PA-C Unavailable Connor Higgins MD Unavailable Reason for Visit * Reason Onset Date Comments MEDICATION REFILL 09/26/2019 Encounter Details Date Type Department Care Team (Late st Contact Info) Description 09/26/2019 Refill [facility] [address] [place] [address] Rosetta Brown APRN-FACILITY REHAB DIRECTOR [address] [facility] [place] [address] MEDICATION REFILL Social History Tobacco [...] Sex Assigned at Female 10/22/2021 5:54 AM CNA LTC Gender Identity Female 10/22/2021 5:54 AM CNA LTC Sexual Orientation Not on file documented as [...] [facility] documented in this encounter Plan of Treatment Upcoming Encounters Date Type Department Care Team (Late st Contact Info) Description 09/17/2024 3:00 PM CNA LTC Office Visit [facility] [address] [place] [address], [facility] [place] [address] Connor Higgins MD [address] [place] [address] [place] [address] documented as of this encounter [...] (HCC) documented in this encounter Care Teams Kettleman Relationship Specialty Start Date End Date Erica Reno, MOBILE GAME ENGINEER-[facility] PCP - General 02/06/18 09/26/21 Yamileth Franks, MOBILE GAME ENGINEER-[facility] [address] [place] [address] PCP - General 09/27/21 11/08/21 Jen Kam, MOBILE GAME ENGINEER-[facility] [address] [facility] [address] [place] [address] PCP - General Nurse Practitioner 11/09/21 Jose Elias Samaniego, RN 06/04/17 Pedro Cordero MD [address] [facility] [address] [place] [address] Cardiology 01/14/22 Abigail Thibodeaux MD [address] [place] [address] Psychiatry 01/14/22 Dutch (Cc)Mindy Gastroenterology 01/14/22 01/14/22 Alen Cox MD [address] [facility] [place], [facility] [place] [address] Urology 01/14/22 Mindy Salgado PA-C [address] DIV [place] [address] Physician Pick Pack Worker Gastroenterology 01/14/22 Connor Higgins MD [address] [place] [address] Neurology 01/14/22 documented as of this encounter
--- OUTSIDE RECORDS SUMMARY | 2024-09-04 19:10 | XMS_ITS | Encounter Summary ---
Author Organization [facility] Address [address] [facility] [place] [address] Care Team Providers Care Merchandising Lead Name Role Phone Siri Wolfe MD Primary Care Provider [phone] Jose Elias Samaniego RN Unavailable Unavailab Erica Tiwari [facility] Primary Care Provi leonard Yamileth Franks [facility] Primary Care Provider [phone] Jen Kam [facility] Primary Care Provider Pedro Cordero MD Unavailable [phone] Abigail Thibodeaux MD Unavailable Dutch (Cc)Mindy Unavailable Unavailable Alen Cox MD Unavailable Mindy Salgado PA-C Unavailable Connor Higgins MD Unavailable Reason for Visit * Reason Onset Date Comments MEDICATION REFILL 12/12/2017 Encounter Details Date Type Department Care Team (Late st Contact Info) Description 12/12/2017 Refill [facility] [address] [place] [address] Siri Wolfe MD [address] [place] [address] MEDICATION REFILL Social History Tobacco Use Types Packs/Day Years Used Date Smoking Tobacco: Former Cigarettes 1 30 0 1975 - 2005 Smokeless Tobacco: Never Comments:quit 7 years ago Alcohol Use Standard Drinks/Week Comments Yes 0 (1 standard drink = 0.6 oz pur e alcohol) occassional drinker Sex and Gender Information Value Date Recorded Sex Assigned at Female 10/22/2021 5:54 AM SUPERVISOR BOAT OUTFITTING Gender Identity Female 10/22/2021 5:54 AM SUPERVISOR BOAT OUTFITTING Sexual Orientation Not on file documented as [...] Contact Info) Description 09/17/2024 3:00 PM SUPERVISOR BOAT OUTFITTING Office Visit [facility] - Neurology [address] [place] [address], [place] [address] Connor Higgins MD [address] [place] [address] [place] [address] documented as of this encounter Visit Diagnoses Not on filedocumented in this encounter Care Teams Merchandising Lead Relationship Specialty Start Date End Date Siri Wolfe MD [address] [place], [place] [id number] PCP - General 06/14/11 02/05/18 Erica Reno APRN-LENS DOTTER PCP - General 02/06/18 09/26/21 Yamileth Franks, MECHANIC WELDER TRUCK DRIVER-LENS DOTTER [address] [place] [address] PCP - General 09/27/21 11/08/21 Jen Kam, MECHANIC WELDER TRUCK DRIVER-LENS DOTTER [address] [facility] [address] [place] [address] PCP - General Nurse Practitioner 11/09/21 Jose Elias Samaniego, RN 06/04/17 Pedro Cordero MD [address] [facility] [address] [place] [address] Cardiology 01/14/22 Abigail Thibodeaux MD [address] [place] [address] Psychiatry 01/14/22 Dutch (Cc)Mindy Gastroenterology 01/14/22 01/14/22 Alen Cox MD [address] [facility] 11[facility], [facility] [place] [address] Urology 01/14/22 Mindy Salgado PA-C [address] [facility] [address] [place] [address] Physician Electric Locomotive Firer/Fireman Gastroenterology 01/14/22 Connor Higgins MD [address] [facility] [address] [place] [address] Neurology 01/14/22 documented as of this encounter
--- OUTSIDE RECORDS SUMMARY | 2024-09-04 19:10 | XMS_ITS | Encounter Summary ---
Author Organization [facility] Address [address] [facility] [place] [address] Care Team Providers Care Parking Lot Chauffeur Name Role Phone Jose Elias Samaniego RN Unavailable Unavailab Erica Tiwari STRATEGY CONSULTANT-[facility] Primary Care Provi leonard Yamileth Franks STRATEGY CONSULTANT-[facility] Primary Care Provider [phone] Jen Kam STRATEGY CONSULTANT-[facility] Primary Care Provider Pedro Cordero MD Unavailable [phone] Abigail Thibodeaux MD Unavailable Dutch (Cc)Mindy Unavailable Unavailable Alen Cox MD Unavailable Mindy Salgado PA-C Unavailable Connor Higgins MD Unavailable Encounter Details Date Type Department Care Team (Late st Contact Info) Description 05/10/2021 Telephone [facility] [address] [place] [address] Vanesa Hinojosa MD [address] [place] [address] Social History Tobacco Use Types Packs/Day Years [...] Sex Assigned at Female 10/22/2021 5:54 AM LOGISTICS ASSOCIATE Gender Identity Female 10/22/2021 5:54 AM LOGISTICS ASSOCIATE Sexual Orientation Not on file COVID-19 Exposure [...] urologist. Please advise. Patient Call Back number: [phone] documented in this encounter Plan of Treatment Upcoming Encounters Date Type Department Care Team (Late st Contact Info) Description 09/17/2024 3:00 PM LOGISTICS ASSOCIATE Office Visit [facility] - Neurology [address] [place] [address], [place] [address] Connor Higgins MD [address] [place] [address] documented as of this encounter [...] on filedocumented in this encounter Care Teams Parking Lot Chauffeur Relationship Specialty Start Date End Date Erica Reno STRATEGY CONSULTANT-FURNITURE DESIGNER PCP - General 02/06/18 09/26/21 Yamileth Franks, STRATEGY CONSULTANT-FURNITURE DESIGNER [address] [place] [address] PCP - General 09/27/21 11/08/21 Jen Kam STRATEGY CONSULTANT-FURNITURE DESIGNER [address] [facility] 205 [place] [address] PCP - General Nurse Practitioner 11/09/21 Jose Elias Samaniego, RN 06/04/17 Pedro Cordero MD [address] [facility] [address] [place] [address] Cardiology 01/14/22 Abigail Thibodeaux MD [address] [place] [address] Psychiatry 01/14/22 Dutch (Cc)Mindy Gastroenterology 01/14/22 01/14/22 Alen Cox MD [address] [facility] [address] [place], [place] [address] Urology 01/14/22 Mindy Salgado PA-C [address] [place] [address] Physician Bliss Press Operator Gastroenterology 01/14/22 Connor Higgins MD [address] [place] [address] Neurology 01/14/22 documented as of this encounter
--- OUTSIDE RECORDS SUMMARY | 2024-09-04 19:11 | XMS_ITS ---
Author Organization [facility] Address [address] [place] [address] Care Team Providers Care Contracting Engineer Name Role Phone Ivan Castellanos MD [phone] Siri Wolfe Unavailable Unavailable REASON FOR VISIT lab reprint Encounters Encounter Location Date Provider Diagnosis [address] [place] [id number] 04/11/2024 Ivan Castellanos Chronic kidney disease, stage 3 unspecified N18.30 Assessments Encounter Date Diagnosis (ICD Code) Assessment Notes Treatment Notes Treatment Clinical Notes Section Notes 04/11/2024 Chronic kidney disease, stage 3 unspecified (ICD-10 - N18.30) Plan Of Treatment Pending Test Test Name Order Date CBC, Platelet; No Differential Renal Panel (10) 04/11/2024 Next Appt Details Provider Name:Ivan nur, 09/17/2024 01:15:00 PM, [address] [facility], Suite [facility], [place], [place], [phone], Progress Notes * Ivonne VERADOB:1955 (68 yo F)Acc No.[id number]:04/11/2024 Patient:?Ivonne VERA :1955???Age:68 Y???Sex:Female Address:[address] [place] [address], [place], [address] Subjective: * Chief Complaints: * ???Lab reprint * Medical History:? * Surgical History:? * Hospitalization/Major Diagno stic Procedure:? * Medications:? Objective: * Vitals:? * Physical Examination:? Assessment: * Assessment: 1.?Chronic kidney disease, s tage 3 unspecified - N18.30??? Plan: * Treatment: * Procedure Codes:? * Addendum: * ? true * Date:? Generated for Grazyna pruitt/Miranda/Andrew on:?09/04/2024 07:10 PM SIGNAL INSPECTOR
--- OUTSIDE RECORDS SUMMARY | 2024-09-04 19:11 | XMS_ITS | Patient Health Record ---
Author Organization [facility] Address [address] [place] [address] Care Team Providers Care Textile Converter Name Role Phone Ivan Castellanos MD Unavailable Siri Wolfe Unavailable Unavailable Allergies Allergen (clinical drug ingredient) Drug/Non Drug Allergy documented on EMR Reaction Allergy Type Onset Date Status Adhesive sensitivity (uncoded) Unknown Allergy Active Contrast (uncoded) Unknown Allergy A ctive Ciprofloxacin Unknown Drug Allergy Act fortino fentanyl Fentanyl Unknown Drug Allergy Active Keflex Unknown Drug Allergy Active Levaquin Unknown Drug Allergy Active methadone Methadone HCl Unknown Drug Allergy Act fortino morphine Morphine Sulfate Unknown Drug Allergy Active Sulfamethoxazole Unknown Drug Allergy Active Reason For Referral No Information Medications Medication SIG (Take, Route, Frequency, Duration) Notes Start Date End Date Status Latuda 60 MG 1 tablet in the even ing with food Orally Once a day for 30 day(s) Active Onglyza 5 MG 1 tablet Orally Once a day for 30 day(s) Active Nuplazid 34 MG 1 capsule Orally Onc e a day for 30 day(s) Active Latuda 40 MG 1 tablet in the even ing with food Orally Once a day for 30 day(s) Active Famotidine 40 MG 1 tablet at bedtime as needed Orally Once a day Active Nystatin 171319 UNIT/GM 1 application Ex ternally Twice a day Unknown Myrbetriq 50 MG 1 tablet Orally Once a day for 30 day(s) Active Naproxen 500 MG 1 tablet with food o r milk as needed Orally every 12 hrs Unknown Methenamine Hippurate 1 GM 1 tablet Oral ly Twice a day for 10 day(s) Unknown SITagliptin Phosphate 50 MG as directed Orally Once a day Unknown Gabapentin 300 MG 1-3 capsules Orally take 3 capsules hs and 1 capsules BID Unknown Calcium Carbonate-Vitamin D 600-400 MG-UNIT 1 tablet Orally Twice a day for 30 day(s) Unknown Nitrofurantoin Monohyd Macro 100 MG 1 capsule with food Orally every 12 hrs for 7 day(s) 04/19/2023 Active Loperamide HCl 2 MG 1 tablet as needed Orally Four times a day Unknown Latanoprost 0.005 % 1 drop into affected eye in the evening Ophthalmic Once a day Unknown clonazePAM 0.5 MG 1 tablet Orally Once a day Unknown Multivitamin Adults - Orally Unknown Pulmicort Flexhaler 90 MCG/ACT 1 puff Inhalation Once a day Active Tamsulosin HCl 0.4 MG 1 capsule Orally O nce a day for 30 day(s) Active Trulicity 0.75 MG/0.5ML as directed Subcutaneous Active Pramipexole Dihydrochloride 1 MG 1 tablet Orally Once a day for 30 day(s) Active Phenazopyridine HCl 100 MG 1 tablet Oral ly Three times a day Unknown Eliquis 5 MG 1 tablet Orally Twic e a day Unknown Potassium Chloride ER 20 MEQ 1 tablet with food Orally Once a day for 30 day(s) Unknown oxyBUTYnin Chloride ER 10 MG 1 tablet Orally Once a day for 30 day(s) Unknown Triamterene-HCTZ 37.5-25 MG 1 tablet in the morning Orally Once a day for 30 day(s) Active Loratadine 10 MG 1 tablet Orally Once a day for 30 day(s) Unknown Trimethoprim 100 MG 1 tablet Orally Once a day for 10 day(s) Active Triamterene 50 MG 1 capsule Orally Twi ce a day Unknown Atorvastatin Calcium 80 MG 1 tablet Oral ly Once a day Unknown Eldepryl 5 MG 1 capsule with break fast and lunch Orally Twice a day Unknown Vitamin C 500 MG as directed Orally Active traZODone HCl 50 MG 3 Tablets Orally Dunia ly at Bedtime Unknown Pantoprazole Sodium 40 MG 1 tablet Orall y Once a day for 30 day(s) Active lamoTRIgine 100 MG 1 tablet Orally as directed Active Metoprolol Tartrate 100 MG take 1.5 tabl ets Orally BID Active Ascorbic Acid 500 MG 1 tablet Orally Onc e a day for 30 day(s) Unknown Ezetimibe 10 MG 1 tablet Orally Once a day Active Social History Tobacco Use: Social History Observation Description Date Details (start date - stop date) Former Smoker NA - NA Tobacco Use/Smoking Question Answer Notes Are you a former smoker Alcohol Screen Question Answer Notes Did you have a drink contain ing alcohol in the past year? Yes How often did you have a dri nk containing alcohol in the past year? Monthly or less (1 point) How many drinks did you have on a typical day when you were drinking in the past year? 1 or 2 drinks (0 point) How often did you have 6 or more drinks on one occasion in the past year? Never (0 point) Points 1 Interpretation Negative Problems Problem Type SNOMED Code ICD Code Onset Dates Problem Status W/U Status Risk Notes Problem Anemia in chronic kidney disease (990762215) Anemia in chronic kidney disease (D63.1) Active confirmed Problem Essential hypertension (60594878) Essential (primary) hypertension (I10) Active confirmed Blood pressure is at goal, monitor on current regimen Encouraged low-salt diet Problem Chronic kidney disease stage 3 (disorder) (451510530) Chronic kidney disease, stage 3 (moderate) (N18.3) Active confirmed in the setting of hypertension . Historically without proteinuria Her baseline creatinine is around 1.3 She had acute renal failure in May 2017 with creatinine peaking at 3.6 Renal function has since improved. Her most recent creatinine was -was in the normal range. She is euvolemic Blood pressure is controlled Repeat renal panel today Continue Urology and Infectious Disease for recurrent UTIs 03/05/19 Patient is euvolemic Blood pressure is controlled Her current regimen is appropriate 02/25/2020 Blood pressure is stable, she is euvolemic Renal function is stable Return in 1 year 02/23/2021 She is euvolemic and her renal function has been stable Blood pressure is controlled Monitor on current regimen and return in a year 02/22/2022 Renal function has been stable, creatinine is in normal range Blood pressure is at goal Continue current regimen Problem Chronic kidney disease stage 3 (disorder) (422835856) Chronic kidney disease, stage 3 (moderate) (N18.3) Active confirmed Problem Chronic kidney disease stage 3 (disorder) (591001277) Chronic kidney disease, stage 3 unspecified (N18.30) Active confirmed Encounters Encounter Location Date Provider Diagnosis [address] [phone] 04/11/2024 Ivan Castellanos Chronic kidney disease, stage 3 unspecified N18.30 Assessments Encounter Date Diagnosis (ICD Code) Assessment Notes Treatment Notes Treatment Clinical Notes Section Notes 04/11/2024 Chronic kidney disease, stage 3 unspecified (ICD-10 - N18.30) Plan Of Treatment Pending Test Test Name Order Date Renal Panel (10) 09/24/2019 CBC, Platelet; No Differential Renal Panel (10) 04/11/2024 Future Test Test Name Order Date CBC w/DIFF 02/05/2023 RENAL FUNCTION PANEL 02/05/2023 RENAL FUNCTION PANEL 04/19/2024 CBC with Diff plus Absolute Counts 04/19 Next Appt Details Provider Name:Ivan nur, 09/17/2024 01:15:00 PM, [facility], [facility] [address], [place], [place], [id number], Insurance Providers Payer Name Payer Address Payer Phone Subscriber Number Group Number Insured Name Patient Relationship to Insured Coverage Start Date Coverage End Date [facility] [address] [address] [place], [place] [id number] Ivonne Santos Self - patient is the insured [address] [place] [id number] Ivonne Santos Self - patient is the insured MEDICARE PART B [address] [address] [place], [place] [id number] Ivonne Santos Self - patient is the insured Medical (General) History Medical History History ICD Code Arthritis Bipolar affective DM II GERD Glaucoma HTN IBS Lower back pain Neck pain Parkinson disease Vit D deficiency Surgical History Surgery Date(Month/Year)
== END 2024-09-02 18:18 | disposition home or self-care (01) ==
PROVIDERS: Emergency Provider Emergency Medicine
DX: E11.65 Type 2 diabetes mellitus with hyperglycemia (principal); G20.A1 Parkinson's disease without dyskinesia, without mention of fluctuations; Z79.4 Long term (current) use of insulin; F31.9 Bipolar disorder, unspecified; K21.9 Gastro-esophageal reflux disease without esophagitis; J45.909 Unspecified asthma, uncomplicated; I25.10 Atherosclerotic heart disease of native coronary artery without angina pectoris; Z86.73 Personal history of transient ischemic attack (TIA), and cerebral infarction without residual deficits; E78.5 Hyperlipidemia, unspecified; I10 Essential (primary) hypertension
CPT/HCPCS: 36415; 71045; 80053; 81003; 82010; 82948; 83605; 83690; 83735; 84145; 84484; 85025; 85610; 85730; 96361; 96374; 96376; 99284; J1815; J7030